=== PATIENT | female | born 1960 | race Caucasian/White ===

== ENCOUNTER 2023-01-02 08:13 | Inpatient (IN) ==
[2023-01-02] MEDS ORDERED: OPTIRAY 320 500ml IV ONE (08:28)
--- NOTE | 2023-01-02 08:28 | Emergency Department Note ---
Impression & Plan Acute left-sided weakness, Elevated troponin, Intermittent abdominal pain ED Provider Note ED Provider Note NAME: JOSHUA RÍOS AGE:62 SEX: Female : 1960 ARRIVES VIA: EMS INFORMANT: Patient ED PROVIDER(s): Laura Raza DO CHIEF COMPLAINT: Left-sided weakness HPI: This is a 62-year-old female presents to emergency department via EMS as a stroke alert following a prehospital conversation between myself and the tap dancer. Patient reported abrupt onset of headache and left-sided weakness at 6:15 AM when she was waking up and getting dressed. She reported to EMS she had been sitting on the bed when she suddenly developed a sharp pain in her head, and then felt weakness on her left side and slid to the floor. Upon EMS arrival she had no facial droop no difficulty speaking. While in route her left-sided weakness which was appreciable to them initially did seem to improve although not completely resolved. Patient also reported numbness in her left hand. Patient is right-hand dominant. Patient does not use any antiplatelet or anticoagulation therapy. No history of prior stroke. No history of complex migraines. No other recent trauma or recent illness. Prehospital BSG 172. PAST MEDICAL HISTORY:See Below PAST SURGICAL HISTORY:See Below FAMILY HISTORY:See Below SOCIAL HISTORY:See Below HOME MEDICATIONS:See Below ALLERGIES:See Below VITALS:See Below PHYSICAL EXAMINATION: GENERAL: alert, anxious appearing, well nourished, no distress, non-toxic EYE EXAM: normal conjunctiva, PERRL and EOM's grossly intact OROPHARYNX: no exudate, no erythema, lips, buccal mucosa, and tongue normal and mucous membranes are moist NECK: supple, no nuchal rigidity, no adenopathy, non-tender LUNGS: Clear to auscultation. Normal chest wall mechanics, no w/r/r HEART: no murmurs, S1 normal and S2 normal ABDOMEN: abdomen soft, non-tender, normo-active bowel sounds, no masses, no r ebound or guarding. BACK: Back is symmetrical on inspection and there is no deformity, no midline t enderness, no CVA tenderness. SKIN: no rashes, petechiae, orbruising UPPER EXTREMITIES: upper extremities are grossly normal. FROM, nml pulses b/l. LOWER EXTREMITIES: No pitting edema. FROM, nml pulses b/l. NEURO EXAM: Normal sensorium, cranial nerves II-XII grossly intact, normal speech, no facial droop,no weakness of right upper or right lower extremity, mild weakness to left upper and left lower extremity, mild left upper extremity ataxia. Patient reports subjective paresthesias in the left hand. Gross sensation intact. Vital Signs: reviewed and remarkable Differential Diagnosis: Differential Diagnosis includes but is not limited to ischemic Stroke, hemorrhagic stroke, bells palsy, mass, neoplasm, migraine headache, seizure, subarachnoid hemorrhage, TIA, and transient global amnesia. MEDICAL DECISION MAKING: THis is a 62 yo female who presents as a stroke alert by EMS due to abrupt onset left sided weakness. Patient went urgently for CT/CTA and was then brought to . Labs drawn and sent, IV established, EKG and CXR performed and interpreted at bedside, and patient placed on telemetry. [facility] neurology was contacted by myself and evaluated the patient additionally. Neurology felt patient was a candidate for TNK however patient declined. During this discussion she also then complained of several other ongoing complaints. Neuro recommended additional stroke evaluation as well as evaluation of other symptoms now reported. US added additionally. Case discussed with hospitalist for additional evaluation. EKG rand CXR reassuring and patient had no active CP. Unclear etiology of elevated troponin. Patient's left sided weakness was improving although not entirely resolved at time of discussion with hospitalist team. Consultation(s): 0823: [facility]: Discussed with Dr. Wise, after additional conversation feels last known well 0550. Discussed offering TNK to the patient. We will order/mix TNK and she will discuss with the patient. 0920: Discussed with Dr. Wise again, patient declined TNK. She states she has had abnormal vaginal bleeding since having her last COVID-vaccine. Patient also complains of 1 week of abdominal pain and admits to intermittent chest pain. Dr. Wise recommends additional evaluation of these other new symptoms that have now been reported as well as additional admission for stroke evaluation including MRI of the brain and echo. ER Treatment Provided: See below Diagnostics Interpreted By Me: -ECG: normal sinus at 67, nml axis, nml intervals, no acute ST/T wave changes -Cardiac Monitoring: An order was placed for continuous cardiac monitoring. The monitor shows a rate of 70 with normal sinus rhythm. -Laboratory studies: As stated above and show below. -Imaging studies: X-ray Chest: A single view study of the chest was reviewed and was negative for cardiomegaly, focal infiltrate, effusion, pulmonary edema, or wide mediastinum. Triage Nursing Note Reviewed Prior/Outside Records Reviewed -prior PCP note from [facility] reviewed Procedures: [] Critical Care: Critical care of 51 min performed to assess and manage high likelihood of life- threatening CVA, involving labs and imaging performed with assessment to evaluate left-sided weakness diagnosis with frequent reassessment. This time includes bedside time, treatment discussions with patient/family/consultants, documentation time and excludes procedure time. Past Med/Surg History Medical History Anxiety HLD (hyperlipidemia) Hx of mammogram Obesity, morbid, BMI 40.0-49.9 Surgical History Hx of colonoscopy Family History Father , age 64 prostate cancer Prostate cancer Grandmother (Paternal) Cancer Breast cancer Social History Smoking Status: Never smoker Second Hand Exposure: No; Do You Dip or Chew Tobacco: No; Hx Alcohol Use: Yes Alcohol Intake Frequency: Monthly or Less Hx Substance Use: No Communication Ability: Effective Mortgage Protection Specialist Required: No Beliefs That Will Affect Care: None Current Living Situation: Spouse and Family current occupational status: employed 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 Feels Safe at Home: Yes Assistive Devices: Cane Allergies Allergies Allergy/AdvReac Type Severity Reaction Status Date / Time No Known Allergies Allergy Unverified 01/02/23 15:45 Home Meds Home Medications Medication Instructions Recorded Confirmed clonazepam 0.5 mg tablet 0.5 mg PO BID PRN Anxiety 01/02/23 01/02/23 nitroglycerin 0.3 mg sublingual 0.3 mg sublingual UD 01/02/23 01/02/23 tablet Previous Rx's Medication Instructions Recorded aspirin 81 mg tablet,delayed 81 mg PO QAM 30 days #30 tabs 01/08/23 release atorvastatin 40 mg tablet 40 mg PO QAM 30 days #30 tabs 01/08/23 heparin, porcine (PF) 5,000 5,000 unit (0.5 mL) subcut Q8 14 01/08/23 unit/0.5 mL injection syringe days #21 mL losartan 50 mg tablet 50 mg PO BID 30 days #60 tabs 01/08/23 metoprolol succinate 25 mg 25 mg PO QAM 30 days #30 tabs 01/08/23 tablet,extended release 24 hr Results & Data (ED) Vital Signs Vital Signs - 24 hr 01/02/23 08:30 01/02/23 08:37 01/02/23 08:34 Temperature 36.6 C Temperature Source Oral Pulse Rate 67 64 65 Pulse Rate from SpO2 Sensor 66 Pulse Rhythm Regular Pulse Strength Normal Respiratory Rate 24 17 Respiratory Effort / Characteristics Spontaneous Respiratory Depth Normal Respiratory Pattern Tachypnea Blood Pressure 147/70 H Blood Pressure Mean 95 Blood Pressure Position Lying Pulse Oximetry 100 100 Oxygen Delivery Method Room Air Sepsis Recent Fever Within 48 Hours No Sepsis New/Unexplained Change in Mental Status N/A Sepsis Action Taken by Nursing No Action Required 01/02/23 08:49 01/02/23 08:51 01/02/23 08:51 Temperature Temperature Source Pulse Rate 71 72 Pulse Rate from SpO2 Sensor 69 71 Pulse Rhythm Pulse Strength Respiratory Rate 21 13 Respiratory Effort / Characteristics Respiratory Depth Respiratory Pattern Blood Pressure 142/90 H Blood Pressure Mean 107 Blood Pressure Position Pulse Oximetry 99 96 Oxygen Delivery Method Sepsis Recent Fever Within 48 Hours Sepsis New/Unexplained Change in Mental Status Sepsis Action Taken by Nursing 01/02/23 09:00 01/02/23 09:15 01/02/23 09:15 Temperature Temperature Source Pulse Rate 71 73 Pulse Rate from SpO2 Sensor 70 72 Pulse Rhythm Pulse Strength Respiratory Rate 19 13 Respiratory Effort / Characteristics Respiratory Depth Respiratory Pattern Blood Pressure 137/82 Blood Pressure Mean 100 Blood Pressure Position Pulse Oximetry 99 96 Oxygen Delivery Method Sepsis Recent Fever Within 48 Hours Sepsis New/Unexplained Change in Mental Status Sepsis Action Taken by Nursing 01/02/23 10:11 01/02/23 12:34 Temperature Temperature Source Pulse Rate 71 63 Pulse Rate from SpO2 Sensor 72 Pulse Rhythm Pulse Strength Respiratory Rate 20 Respiratory Effort / Characteristics Respiratory Depth Respiratory Pattern Blood Pressure 107/77 Blood Pressure Mean 87 Blood Pressure Position Pulse Oximetry 93 Oxygen Delivery Method Room Air Sepsis Recent Fever Within 48 Hours Sepsis New/Unexplained Change in Mental Status Sepsis Action Taken by Nursing Laboratory Data 01/02/23 08:32 01/02/23 08:32 Lab Results 01/02/23 01/02/23 01/02/23 Range/Units 08:31 08:32 08:32 WBC 9.89 (4.8-10.8) K/ul RBC 4.74 (4.20-5.40) M/uL Hgb 12.6 (12.0-16.0) g/dl POC Hgb (12.0-16.0) g/dl Hct 38.6 (37.0-47.0) % POC Hct (37-47) % MCV 81.4 (80.0-100.0) fL MCH 26.6 (25.0-34.0) pg MCHC 32.6 (32.0-36.0) g/dL RDW Std Deviation 39.8 (36.4-46.3) fL RDW Coeff of Kristin 13.3 (11.5-14.5) % Plt Count 256 (130-400) K/uL MPV 9.3 L (9.4-12.4) fL Immature Gran % (Auto) 0.3 % Neut % (Auto) 82.3 % Lymph % (Auto) 9.2 % Cache % (Auto) 5.8 % Eos % (Auto) 1.8 % Baso % (Auto) 0.6 % Neut # (Auto) 8.14 H (1.40-6.50) K/uL Lymph # (Auto) 0.91 L (1.2-3.4) K/uL Cache # (Auto) 0.57 (0.11-0.59) K/uL Eos # (Auto) 0.18 (0-0.50) K/uL Baso # (Auto) 0.06 (0-0.2) K/uL Immature Gran # (Auto) 0.03 (0.01-0.20) K/uL PT 11.5 (9.0-12.0) Seconds INR 1.1 (0.9-1.1) APTT 26.1 (21.0-31.0) Seconds PTT Ratio 0.9 POC Sodium (135-144) mmol/L Sodium (136-145) mmol/L POC Potassium (3.3-5.0) mmol/L Potassium (3.5-5.1) mmol/L POC Chloride (101-112) mmol/L Chloride (98-107) mmol/L Carbon Dioxide (21-32) mmol/L POC Total CO2 (24-31) mmol/L Anion Gap (3-11) POC Anion Gap (16-25) mmol/L POC BUN (7-18) mg/dl BUN (6-23) mg/dl Creatinine (0.6-1.2) mg/dl POC Creatinine (0.6-1.3) mg/dl Est Cr Clr Drug Dosing ml/min Est GFR ( Amer) ml/min Est GFR (Non-Af Amer) ml/min BUN/Creatinine Ratio (10-20) Glucose (70-99(Fasting)) mg/dl POC Glucose 151 H (70-99) mg/dl POC Glucose (other) (70-99) mg/dl Calcium (8.6-10.3) mg/dl POC Ioniz Calcium Alex (1.12-1.32) mmol/l Magnesium (1.7-2.4) mg/dl Total Bilirubin (0.2-1.0) mg/dl AST (13-39) U/L ALT (7-52) U/L Alkaline Phosphatase (34-104) U/L Troponin I High Sens (0-14) pg/ml Total Protein (6.0-8.3) gm/dl Albumin (3.4-5.0) gm/dl Globulin (2.5-4.0) gm/dl Albumin/Globulin Ratio (0.9-2) SARS-CoV-2 (PCR) (Negative) Influenza Type A (PCR) (Neg) Influenza Type B (PCR) (Neg) RSV (RT-PCR) (Neg) 01/02/23 01/02/23 01/02/23 Range/Units 08:32 08:37 10:04 WBC (4.8-10.8) K/ul RBC (4.20-5.40) M/uL Hgb (12.0-16.0) g/dl POC Hgb 12.6 (12.0-16.0) g/dl Hct (37.0-47.0) % POC Hct 37 (37-47) % MCV (80.0-100.0) fL MCH (25.0-34.0) pg MCHC (32.0-36.0) g/dL RDW Std Deviation (36.4-46.3) fL RDW Coeff of Kristin (11.5-14.5) % Plt Count (130-400) K/uL MPV (9.4-12.4) fL Immature Gran % (Auto) % Neut % (Auto) % Lymph % (Auto) % Cache % (Auto) % Eos % (Auto) % Baso % (Auto) % Neut # (Auto) (1.40-6.50) K/uL Lymph # (Auto) (1.2-3.4) K/uL Cache # (Auto) (0.11-0.59) K/uL Eos # (Auto) (0-0.50) K/uL Baso # (Auto) (0-0.2) K/uL Immature Gran # (Auto) (0.01-0.20) K/uL PT (9.0-12.0) Seconds INR (0.9-1.1) APTT (21.0-31.0) Seconds PTT Ratio POC Sodium 137 (135-144) mmol/L Sodium 135 L (136-145) mmol/L POC Potassium 3.9 (3.3-5.0) mmol/L Potassium 3.9 (3.5-5.1) mmol/L POC Chloride 102 (101-112) mmol/L Chloride 102 (98-107) mmol/L Carbon Dioxide 24 (21-32) mmol/L POC Total CO2 22 L (24-31) mmol/L Anion Gap 9 (3-11) POC Anion Gap 18.0 (16-25) mmol/L POC BUN 11 (7-18) mg/dl BUN 12 (6-23) mg/dl Creatinine 0.73 (0.6-1.2) mg/dl POC Creatinine 0.7 (0.6-1.3) mg/dl Est Cr Clr Drug Dosing 110.1 ml/min Est GFR ( Amer) 103.8 ml/min Est GFR (Non-Af Amer) 89.5 ml/min BUN/Creatinine Ratio 16.4 (10-20) Glucose 163 H (70-99(Fasting)) mg/dl POC Glucose (70-99) mg/dl POC Glucose (other) 168 H (70-99) mg/dl Calcium 9.4 (8.6-10.3) mg/dl POC Ioniz Calcium Alex 1.13 (1.12-1.32) mmol/l Magnesium 2.0 (1.7-2.4) mg/dl Total Bilirubin 0.5 (0.2-1.0) mg/dl AST 15 (13-39) U/L ALT 13 (7-52) U/L Alkaline Phosphatase 83 (34-104) U/L Troponin I High Sens 255.6 H* (0-14) pg/ml Total Protein 7.0 (6.0-8.3) gm/dl Albumin 3.9 (3.4-5.0) gm/dl Globulin 3.1 (2.5-4.0) gm/dl Albumin/Globulin Ratio 1.3 (0.9-2) SARS-CoV-2 (PCR) NEGATIVE (Negative) Influenza Type A (PCR) Negative (Neg) Influenza Type B (PCR) Negative (Neg) RSV (RT-PCR) Negative (Neg) Administered Medications Discontinued Medications Acetaminophen (Acetaminophen 325 Mg Tab) 650 mg PO Q4H PRN PRN Reason: Pain or Fever Stop: 02/01/23 20:10 Last Admin: 01/08/23 04:11 Dose: 650 mg Documented By: Admin: 01/07/23 20:43 Dose: 650 mg Documented By: Admin: 01/06/23 20:46 Dose: 650 mg Documented By: Admin: 01/06/23 07:39 Dose: 650 mg Documented By: Admin: 01/04/23 00:27 Dose: 650 mg Documented By: Admin: 01/03/23 21:00 Dose: 650 mg Documented By: Admin: 01/03/23 15:10 Dose: 650 mg Documented By: Admin: 01/03/23 08:22 Dose: 650 mg Documented By: Admin: 01/03/23 00:35 Dose: 650 mg Documented By: Admin: 01/02/23 20:39 Dose: 650 mg Documented By: EKF Al Hydrox/Mg Hydrox/Simethicone (Aluminum/Magnesium/Simeth (Maalox Max) 30 Ml Udc) 30 ml PO Q6H PRN PRN Reason: Indigestion Stop: 02/01/23 20:23 Last Admin: 01/07/23 02:28 Dose: 30 ml Documented By: Admin: 01/06/23 17:06 Dose: 30 ml Documented By: Admin: 01/02/23 20:39 Dose: 30 ml Documented By: EKF Aspirin (Aspirin 325 Mg Ectab) 325 mg PO NOW STA Stop: 01/02/23 09:42 Last Admin: 01/02/23 10:04 Dose: 325 mg Documented By: RODOLFOT Aspirin (Aspirin 81 Mg Ectab) [facility] Stop: 02/02/23 08:59 Last Admin: 01/08/23 09:33 Dose: 81 mg Documented By: Admin: 01/07/23 08:34 Dose: 81 mg Documented By: Admin: 01/06/23 07:39 Dose: 81 mg Documented By: Admin: 01/05/23 10:04 Dose: 81 mg Documented By: Admin: 01/04/23 14:17 Dose: 81 mg Documented By: Admin: 01/03/23 09:28 Dose: 81 mg Documented By: EVGENY Atorvastatin Calcium (Atorvastatin 40 Mg Tab) 80 mg PO [facility] Stop: 02/01/23 17:00 Last Admin: 01/06/23 07:39 Dose: 80 mg Documented By: Admin: 01/05/23 10:07 Dose: 80 mg Documented By: Admin: 01/04/23 14:16 Dose: 80 mg Documented By: Admin: 01/03/23 09:28 Dose: 80 mg Documented By: Admin: 01/02/23 19:46 Dose: 80 mg Documented By: EKF Atorvastatin Calcium (Atorvastatin 40 Mg Tab) [facility] Stop: 02/06/23 08:59 Last Admin: 01/08/23 09:33 Dose: 40 mg Documented By: Admin: 01/07/23 08:34 Dose: 40 mg Documented By: MARTHA Benzocaine/Butamben/Tetracaine HCl (Benzocaine/Tetracain/Butam 50 Appln/5 Gm Can) Confirm Administered Dose 50 appln EXT .STK-MED ONE Stop: 01/08/23 07:19 Last Admin: 01/08/23 08:54 Dose: Not Given Documented By: SHELBI Clonazepam (Clonazepam 0.5 Mg Tab) 0.5 mg PO BID PRN PRN Reason: Anxiety Stop: 02/01/23 17:00 Last Admin: 01/07/23 20:43 Dose: 0.5 mg Documented By: Admin: 01/04/23 09:23 Dose: 0.5 mg Documented By: Gadobutrol (Gadobutrol 65ml Vial) 12.1 ml IV ONCE ONE Stop: 01/04/23 12:44 Last Admin: 01/04/23 12:09 Dose: 12.1 ml Documented By: MARCY Heparin Sodium (Porcine) (Heparin Sod 5,000 Unit/0.5 Ml Vial) 5,000 units SQ Q8 RAMON Stop: 02/02/23 21:59 Last Admin: 01/08/23 05:24 Dose: Not Given Documented By: Admin: 01/07/23 21:52 Dose: 5,000 units Documented By: Admin: 01/07/23 14:01 Dose: 5,000 units Documented By: Admin: 01/07/23 06:32 Dose: 5,000 units Documented By: Admin: 01/06/23 20:45 Dose: 5,000 units Documented By: Admin: 01/06/23 13:59 Dose: 5,000 units Documented By: Admin: 01/06/23 06:00 Dose: Not Given Documented By: Admin: 01/05/23 21:38 Dose: 5,000 units Documented By: Admin: 01/05/23 14:30 Dose: 5,000 units Documented By: Admin: 01/05/23 06:00 Dose: 5,000 units Documented By: Admin: 01/04/23 21:12 Dose: 5,000 units Documented By: Admin: 01/04/23 14:18 Dose: 5,000 units Documented By: Admin: 01/04/23 06:35 Dose: 5,000 units Documented By: Admin: 01/03/23 21:12 Dose: 5,000 units Documented By: MELLISA Tenecteplase 25 mg/ Syringe 5 mls @ 60 mls/min IV NOW ONE; Protocol Stop: 01/02/23 09:09 Last Admin: 01/02/23 09:30 Dose: Not Given Documented By: AP Sodium Chloride (Nss 1000ml) 1,000 mls @ 250 mls/hr IV .Q4H RAMON Stop: 02/01/23 09:29 Last Infusion: 01/03/23 07:29 Dose: 0 mls/hr Documented By: Admin: 01/03/23 06:23 Dose: 250 mls/hr Documented By: Infusion: 01/03/23 06:23 Dose: 250 mls/hr Documented By: Admin: 01/03/23 02:45 Dose: 250 mls/hr Documented By: Infusion: 01/03/23 02:43 Dose: 250 mls/hr Documented By: Admin: 01/02/23 22:43 Dose: 250 mls/hr Documented By: Infusion: 01/02/23 22:03 Dose: 250 mls/hr Documented By: Admin: 01/02/23 18:03 Dose: 250 mls/hr Documented By: Infusion: 01/02/23 18:03 Dose: 250 mls/hr Documented By: Admin: 01/02/23 14:50 Dose: 250 mls/hr Documented By: DLClementina Infusion: 01/02/23 14:50 Dose: 0 mls/hr Documented By: DLClementina Admin: 01/02/23 09:59 Dose: 250 mls/hr Documented By: AP Acetaminophen (Ofirmev) 1,000 mg in 100 mls @ 400 mls/hr IV NOW STA Stop: 01/02/23 09:30 Last Infusion: 01/02/23 10:14 Dose: 0 mls/hr Documented By: Admin: 01/02/23 09:59 Dose: 400 mls/hr Documented By: AP Acetaminophen (Ofirmev) 1,000 mg in 100 mls @ 400 mls/hr IV NOW STA Stop: 01/04/23 13:55 Last Infusion: 01/04/23 14:13 Dose: 0 mls/hr Documented By: Admin: 01/04/23 13:53 Dose: 400 mls/hr Documented By: Ioversol (Optiray 320 500ml) 108 ml IV ONCE ONE Stop: 01/02/23 08:29 Last Admin: 01/02/23 08:28 Dose: 108 ml Documented By: JOSIANE Lorazepam (Lorazepam 2 Mg/1 Ml Vial) 1 mg IV NOW STA Stop: 01/02/23 15:30 Last Admin: 01/02/23 15:39 Dose: 1 mg Documented By: CHIOMA Losartan Potassium (Losartan Potassium 50 Mg Tab) 50 mg PO BID [facility] Stop: 02/03/23 13:09 Last Admin: 01/08/23 09:33 Dose: 50 mg Documented By: Admin: 01/07/23 20:40 Dose: 50 mg Documented By: Admin: 01/07/23 08:34 Dose: 50 mg Documented By: Admin: 01/06/23 20:45 Dose: 50 mg Documented By: Admin: 01/06/23 07:39 Dose: 50 mg Documented By: Admin: 01/05/23 21:38 Dose: 50 mg Documented By: Admin: 01/05/23 10:04 Dose: 50 mg Documented By: Admin: 01/04/23 21:12 Dose: 50 mg Documented By: Admin: 01/04/23 14:17 Dose: 50 mg Documented By: Metoprolol Succinate (Metoprolol Succ 25mg Ext Rel Tab) 12.5 mg PO DAILY@1700 [facility] Stop: 02/05/23 16:59 Last Admin: 01/07/23 17:43 Dose: 12.5 mg Documented By: Admin: 01/06/23 17:38 Dose: 12.5 mg Documented By: MARTHA Metoprolol Succinate (Metoprolol Succ 25mg Ext Rel Tab) 25 mg PO QAM [facility] Stop: 02/07/23 08:59 Last Admin: 01/08/23 09:33 Dose: 25 mg Documented By: SHELBI Miscellaneous (Stat Iv) 1 each N/A NOW [facility] Stop: 01/02/23 08:59 Last Admin: 01/02/23 10:25 Dose: Not Given Documented By: CHRISTI Ondansetron HCl (Ondansetron Inj 2 Mg/Ml 2 Ml Vial) 4 mg IV Q6H PRN PRN Reason: Nausea And Vomiting Stop: 02/03/23 01:38 Last Admin: 01/04/23 13:28 Dose: 4 mg Documented By: Ondansetron HCl (Ondansetron Inj 2 Mg/Ml 2 Ml Vial) Confirm Administered Dose 4 mg .ROUTE .STK-MED ONE Stop: 01/04/23 01:44 Last Admin: 01/04/23 01:45 Dose: 4 mg Documented By: LMP Oxycodone HCl (Oxycodone Hcl Ir 5 Mg Tab (Immediate Release)) 5 mg PO NOW STA Stop: 01/04/23 01:57 Last Admin: 01/04/23 02:40 Dose: Not Given Documented By: LMP Propofol (Propofol Iv Emulsion 10 Mg/Ml 20 Ml Vial) Confirm Administered Dose 20 0 mg IV .STK-MED ONE Stop: 01/08/23 07:40 Last Admin: 01/08/23 08:54 Dose: Not Given Documented By: KEG Propofol (Propofol Iv Emulsion 10 Mg/Ml 20 Ml Vial) Confirm Administered Dose 200 mg IV .STK-MED ONE Stop: 01/08/23 07:40 Last Admin: 01/08/23 08:54 Dose: Not Given Documented By: KEG Sodium Chloride (Sodium Chloride 0.9% 10ml Flush) 20 ml IV NOW STA Stop: 01/02/23 08:59 Last Admin: 01/02/23 09:31 Dose: Not Given Documented By: AP Imaging Data Radiologist's Impression: Chest X-Ray 01/02/23 08:17 XR chest 1V portable HISTORY: 62 years-old Female neuro deficit, acute stroke suspected acute strokelike symptoms COMPARISON: None TECHNIQUE: AP view of the chest FINDINGS: Cardiomediastinal and hilar silhouettes are within normal limits. Mild right hemidiaphragmatic elevation. No pneumothorax, pleural effusion, airspace consolidation or pulmonary edema. Degenerative changes of the shoulders and spine. Bilateral shoulder rotator cuff calcific tendinosis. IMPRESSION: No acute process. ACT 112: Negative or not required by law. The above report was generated using voice recognition software. It may contain grammatical, syntax or spelling errors. Electronically signed by: Cuco Morrell M.D. 01/02/2023 10:[address] 01/02/23 08:17 CT head/brain wo con, CT angio neck with con, CT angio head w con CLINICAL HISTORY: 62 years-old Female with neuro deficit, acute stroke suspected. Acute strokelike symptoms TECHNIQUE: Multiple axial CT images of the head were obtained without contrast. CTA head and neck also obtained following the intravenous administration of 108 mL Optiray 320. 3-D coronal and sagittal maps were obtained and submitted for review. All measurements were obtained according to NASCET criteria. A dose lowering technique was utilized adhering to the principles of ALARA. CT DOSE: 2073.47 mGy.cm COMPARISON: None. FINDINGS: CT HEAD: No acute intracranial hemorrhage, midline shift, intracranial mass, hydrocephalus, territorial ischemia or abnormal extra-axial collection. The calvarium is intact. Mild mucosal thickening of the paranasal sinuses. Mastoid air cells are clear. CTA: Dilated pulmonary artery may represent pulmonary arterial hypertension. Atherosclerosis of the thoracic aorta. Patency of the innominate and image subclavian arteries. Common and internal carotid arteries are patent. Mild atherosclerosis of the right carotid bulb. Anterior and middle cerebral arteries are patent. Vertebral arteries are codominant and patent. The basilar and posterior cerebral arteries are patent. Cerebral venous sinuses are patent. No aneurysm, dissection, high-grade stenosis or arterial occlusion identified. No abnormal intracranial enhancement. No pneumothorax. Groundglass densities in the lungs suggestive of atelectasis. Unremarkable soft tissues. Degenerative changes of the cervical spine. IMPRESSION: 1. No acute intracranial abnormality. 2. Unremarkable CTA of the head and neck. ACT 112: Negative or not required by law. The above report was generated using voice recognition software. It may contain grammatical, syntax or spelling errors. Electronically signed by: Cuco Morrell M.D. 01/02/2023 8:53 AM Head CTA 01/02/23 08:17 CT head/brain wo con, CT angio neck with con, CT angio head w con CLINICAL HISTORY: 62 years-old Female with neuro deficit, acute stroke suspected. Acute strokelike symptoms TECHNIQUE: Multiple axial CT images of the head were obtained without contrast. CTA head and neck also obtained following the intravenous administration of 108 mL Optiray 320. 3-D coronal and sagittal maps were obtained and submitted for review. All measurements were obtained according to NASCET criteria. A dose lowering technique was utilized adhering to the principles of ALARA. CT DOSE: 2073.47 mGy.cm COMPARISON: None. FINDINGS: CT HEAD: No acute intracranial hemorrhage, midline shift, intracranial mass, hydr ocephalus, territorial ischemia or abnormal extra-axial collection. The calvarium is intact. Mild mucosal thickening of the paranasal sinuses. Mastoid air cells are clear. CTA: Dilated pulmonary artery may represent pulmonary arterial hypertension. Atherosclerosis of the thoracic aorta. Patency of the innominate and image subclavian arteries. Common and internal carotid arteries are patent. Mild atherosclerosis of the right carotid bulb. Anterior and middle cerebral arteries are patent. Vertebral arteries are codominant and patent. The basilar and posterior cerebral arteries are patent. Cerebral venous sinuses are patent. No aneurysm, dissection, high-grade stenosis or arterial occlusion identified. No abnormal intracranial enhancement. No pneumothorax. Groundglass densities in the lungs suggestive of atelectasis. Unremarkable soft tissues. Degenerative changes of the cervical spine. IMPRESSION: 1. No acute intracranial abnormality. 2. Unremarkable CTA of the head and neck. ACT 112: Negative or not required by law. The above report was generated using voice recognition software. It may contain grammatical, syntax or spelling errors. Electronically signed by: Cuco Morrell M.D. 01/02/2023 8:53 AM Neck CTA 01/02/23 08:17 CT head/brain wo con, CT angio neck with con, CT angio head w con CLINICAL HISTORY: 62 years-old Female with neuro deficit, acute stroke suspected. Acute strokelike symptoms TECHNIQUE: Multiple axial CT images of the head were obtained without contrast. CTA head and neck also obtained following the intravenous administration of 108 mL Optiray 320. 3-D coronal and sagittal maps were obtained and submitted for review. All measurements were obtained according to NASCET criteria. A dose lowering technique was utilized adhering to the principles of ALARA. CT DOSE: 2073.47 mGy.cm COMPARISON: None. FINDINGS: CT HEAD: No acute intracranial hemorrhage, midline shift, intracranial mass, hydrocephalus, territorial ischemia or abnormal extra-axial collection. The calvarium is intact. Mild mucosal thickening of the paranasal sinuses. Mastoid air cells are clear. CTA: Dilated pulmonary artery may represent pulmonary arterial hypertension. Atherosclerosis of the thoracic aorta. Patency of the innominate and image subclavian arteries. Common and internal carotid arteries are patent. Mild at herosclerosis of the right carotid bulb. Anterior and middle cerebral arteries are patent. Vertebral arteries are codominant and patent. The basilar and posterior cerebral arteries are patent. Cerebral venous sinuses are patent. No aneurysm, dissection, high-grade stenosis or arterial occlusion identified. No abnormal intracranial enhancement. No pneumothorax. Groundglass densities in the lungs suggestive of atelectasis. Unremarkable soft tissues. Degenerative changes of the cervical spine. IMPRESSION: 1. No acute intracranial abnormality. 2. Unremarkable CTA of the head and neck. ACT 112: Negative or not required by law. The above report was generated using voice recognition software. It may contain grammatical, syntax or spelling errors. Electronically signed by: Cuco Morrell M.D. 01/02/2023 8:53 AM Gallbladder Ultrasound 01/02/23 09:34 ULTRASOUND RIGHT UPPER QUADRANT ABDOMEN CLINICAL HISTORY: Postprandial right upper quadrant abdominal pain. COMPARISON STUDY: No priors. TECHNIQUE: Real-time, grayscale, and color flow sonography of the right upper quadrant of the abdomen was performed. Images are reviewed in the transverse and longitudinal planes. FINDINGS: Liver: The liver is mildly enlarged and demonstrates heterogeneously increased echotexture indicating steatosis. There is no intrahepatic biliary ductal dilatation. The main portal vein is patent. Gallbladder: The gallbladder is mildly distended and contains large shadowing gallstones as well as biliary sludge. There is no gallbladder wall thickening or pericholecystic fluid. A sonographic Nunez's sign is reportedly absent. The common bile duct measures up to 0.5 cm in diameter. Pancreas: There is an approximately 5 cm indeterminate hypoechoic density adjacent to pancreatic head. Right kidney: Survey images of the right kidney demonstrate normal size and echotexture. There is no hydronephrosis. Ascites: None. IMPRESSION: 1. There is an approximately 5 cm indeterminant hypoechoic density adjacent to the pancreatic head. Correlation with a contrast-enhanced abdominal CT scan is recommended for further assessment. 2. Cholelithiasis and biliary sludge without sonographic evidence of acute cholecystitis. 3. Hepatomegaly and hepatic steatosis. ACT 112: Negative or not required by law. Electronically signed by: Celestine Gómez M.D. 01/02/2023 12:03 PM Pelvis Ultrasound 01/02/23 11:02 US pelvic complete HISTORY: 62 years-old Female vaginal bleeding postmenopausal acute postmen opausal vaginal bleeding COMPARISON: None TECHNIQUE: Multiple real-time sonographic images of the deep pelvic structures were obtained transabdominally assessing grayscale appearance, color and spectral flow. FINDINGS: Anteflexed uterus measures 8.9 x 3.7 x 4.8 cm. No myometrial mass lesion. Homogeneous echogenic thickening of the endometrium, 1.6 cm. Ovaries are not diagnostically visualized. Limited study secondary to patient body habitus. IMPRESSION: Pathologic thickening of the postmenopausal endometrium. Correlation with tissue sampling recommended. ACT 112: Negative or not required by law. The above report was generated using voice recognition software. It may contain grammatical, syntax or spelling errors. Electronically signed by: Cuco Morrell M.D. 01/02/2023 12:19 PM Abdomen/Pelvis CT 01/02/23 12:[address] WITHOUT CONTRAST CT DOSE: 1493.32 mGy.cm HISTORY: Acute right upper quadrant abdominal pain Eval Pancreatic mass, vaginal bleeding TECHNIQUE: Multiaxial CT images of the abdomen and pelvis were performed without contrast. A dose lowering technique was utilized adhering to the principles of ALARA. COMPARISON STUDY: Abdominal ultrasound of same day FINDINGS: No acute process of the imaged lower chest. Limited study without the use of contrast. Ptosis or pneumoperitoneum. Unremarkable unenhanced spleen, gallbladder and adrenal glands. The patient's cholelithiasis is not identified by ultrasound. Hepatomegaly with hepatic steatosis. No biliary ductal dilation. Mild pancreatic ductal dilation measures up to 6 mm. Ill-defined mass of the pancreatic head is confirmed measuring 4.3 x 3.6 cm. Mild peripancreatic str anding. Subcentimeter peripancreatic and paradise hepatic lymph nodes. The anterior margin of this lesion abuts the adjacent superior mesenteric vein and also abuts the adjacent duodenum which penetrates mild wall thickening. Contrast noted within the renal collecting systems and urinary bladder. No hydronephrosis. Heterogeneous uterus. Atherosclerosis of the aorta. Tiny hiatal hernia. Moderate rectal fecal retention. Colonic diverticulosis. No CT evidence of acute appendicitis. Small fat filled umbilical hernia. No acute fracture. IMPRESSION: 1. Confirmation of the 4.3 cm ill-defined pancreatic head mass resulting in upstream pancreatic ductal dilation. Evaluation is limited without the use of IV contrast, however the imaging characteristics are suspicious for adenocarcinoma. GI consultation with endoscopy and tissue sampling recommended. 2. The pancreatic mass abuts and possibly infiltrates the adjacent duodenum . No obstruction. 3. No evidence of metastatic disease. 4. Hepatic steatosis. ACT 112: Negative or not required by law. The above report was generated using voice recognition software. It may contain grammatical, syntax or spelling errors. Electronically signed by: Cuco Morrell M.D. 01/02/2023 1:35 PM Discharge Plan Visit Data Chief Complaint: Stroke Alert ED Provider: Laura Raza Discharge Problem: Acute left-sided weakness, Elevated troponin, Intermittent abdominal pain Patient Disposition: Admitted As Inpatient Discharge Instructions Interventions: ED Discharge Assessment Last Done: 01/02/23 15:46
[2023-01-02 08:43] LABS: Basophils # (auto) 0.06 K/uL (0-0.2); Basophils % (auto) 0.6 %; Eosinophils # (auto) 0.18 K/uL (0-0.50); Eosinophils % (auto) 1.8 %; Hematocrit (blood only) 38.6 % (37.0-47.0); Hemoglobin 12.6 g/dl (12.0-16.0); Immature Granulocytes # (auto) 0.03 K/uL (0.01-0.20); Immature Granulocytes % (auto) 0.3 %; Lymphocytes # (auto) 0.91 K/uL (1.2-3.4); Lymphocytes % (auto) 9.2 %; Mean Corpuscular Hemoglobin 26.6 pg (25.0-34.0); Mean Corpuscular Hgb Conc 32.6 g/dL (32.0-36.0); Mean Corpuscular Volume 81.4 fL (80.0-100.0); Mean Platelet Volume 9.3 fL (9.4-12.4); Monocytes # (auto) 0.57 K/uL (0.11-0.59); Monocytes % (auto) 5.8 %; Neutrophils # (auto) 8.14 K/uL (1.40-6.50); Neutrophils % (auto) 82.3 %; Platelet Count 256 K/uL (130-400); RDW Coefficient of Variation 13.3 % (11.5-14.5); RDW Standard Deviation 39.8 fL (36.4-46.3); Red Blood Count 4.74 M/uL (4.20-5.40); White Blood Count 9.89 K/ul (4.8-10.8)
--- NOTE | 2023-01-02 08:54 | CT Scan Report ---
CT head/brain wo con, CT angio neck with con, CT angio head w con CLINICAL HISTORY: 62 years-old Female with neuro deficit, acute stroke suspected. Acute strokelike s [place] TECHNIQUE: Multiple axial CT images of the head were obtained without contrast. CTA head and neck als o obtained following the intravenous administration of 108 mL Optiray 320. 3-D coronal and sagittal m aps were obtained and submitted for review. All measurements were obtained according to NASCET criter ia. A dose lowering technique was utilized adhering to the principles of ALARA. CT DOSE: 2073.47 mGy.cm COMPARISON: None. FINDINGS: CT HEAD: No acute intracranial hemorrhage, midline shift, intracranial mass, hydrocephalus, territorial ischem ia or abnormal extra-axial collection. The calvarium is intact. Mild mucosal thickening of the paranasal sinuses. Mastoid air cells are violet ar. CTA: Dilated pulmonary artery may represent pulmonary arterial hypertension. Atherosclerosis of the thorac ic aorta. Patency of the innominate and image subclavian arteries. Common and internal carotid arteri es are patent. Mild atherosclerosis of the right carotid bulb. Anterior and middle cerebral arteries are patent. Vertebral arteries are codominant and patent. The basilar and posterior cerebral arteries are patent. Cerebral venous sinuses are patent. No aneurysm, dissection, high-grade stenosis or kathleen rial occlusion identified. No abnormal intracranial enhancement. No pneumothorax. Groundglass densities in the lungs suggestive of atelectasis. Unremarkable soft tiss ues. Degenerative changes of the cervical spine. IMPRESSION: 1. No acute intracranial abnormality. 2. Unremarkable CTA of the head and neck. ACT 112: Negative or not required by law. The above report was generated using voice recognition software. It may contain grammatical, syntax o r spelling errors. Electronically signed by: Cuco Morrell M.D. 01/02/2023 8:53 AM
[2023-01-02 08:58] LABS: INR 1.1 (0.9-1.1); Partial Thromboplastin Ratio 0.9; Partial Thromboplastin Time 26.1 Seconds (21.0-31.0); Prothrombin Time 11.5 Seconds (9.0-12.0)
[2023-01-02] MEDS ORDERED: SODIUM CHLORIDE 0.9% 10ML FLUSH IV STA (08:58)
[2023-01-02] MEDS ORDERED: STAT IV STA (08:58)
[2023-01-02] MEDS ORDERED: No Aspirin within 24hrs of THROMBOLYTIC-Stroke PO SCH (09:00)
[2023-01-02 09:05] LABS: Albumin Globulin Ratio 1.3 (0.9-2); Albumin Level 3.9 gm/dl (3.4-5.0); BUN Creatinine Ratio 16.4 (10-20); Bilirubin,Total 0.5 mg/dl (0.2-1.0); Calcium 9.4 mg/dl (8.6-10.3); Creatinine Clr Calc Pharmacy 110.1 ml/min; Est GFR (African American) 103.8 ml/min; Est GFR (Non-African American) 89.5 ml/min; Globulin 3.1 gm/dl (2.5-4.0); Potassium 3.9 mmol/L (3.5-5.1)
[2023-01-02] MEDS ORDERED: TENECTEPLASE 25 MG in SYRINGE 0 ML IV ONE (09:08)
[2023-01-02 09:13] LABS: Troponin I High Sensitivity 255.6 pg/ml (0-14)
[2023-01-02] MEDS ORDERED: ACETAMINOPHEN 1,000 MG/100 ML VIAL IV STA (09:16)
[2023-01-02] MEDS ORDERED: ASPIRIN 325 MG ECTAB PO STA (09:41)
[2023-01-02] MEDS: SODIUM CHLORIDE 0.9% 1000ML 1,000 ML IV SCH ×4 (09:59→22:43)
--- NOTE | 2023-01-02 10:16 | History & Physical Report ---
Date of Service January 02, 2023 Assessment & Plan (1) Left-sided weakness: Plan: - Admit to PCU for observation - Stroke order set completed- tele neurologist recommended TNK due to NIH score of 3, possibly a 4, however the pt declined. Was treated with full dose baby aspirin. - CT head reviewed and is negative - MRI brain wo contrast ordered - Will allow permissive hypertension with SBP 140-170, pt is not on home blood pressure medication - Neurology consulted - PT/OT consults placed - Atorvastatin 80 mg, baby aspirin daily added to the med regimen (2) Elevated troponin: Plan: - Initial set is elevated at 255.6, pt denies cardiac complaints, will trend Q6H - Obtain echo - Consult cardiology - Check a1c and lipid panel with am labs (3) Vaginal bleeding: Plan: - Notes episode of larg clot passing about 1 year ago - never followed up with rehab office coordinator due to poor compliance, continues to have spotting and intermittent vag inal bleeding and is postmenopausal. - Pelvic U/S ordered to eval (4) Obesity, morbid, BMI 40.0-49.9: Plan: - Lifestyle modification, diet and weight loss need to be encouraged throughout hospital stay - BMI of 44.1 (5) Anxiety: Plan: - significant anxiety during our conversation, may continue clonazepam prn - Affect is almost pseudobulbar syndrome - like -- unsure if this is primarily anxiety at this time due to multiple issues causing increased stress or if this is the patients baseline mood. (6) HLD (hyperlipidemia): Plan: -History of such, does not appear to be on statin therapy at baseline, added atorvastatin 80 mg for plaque stabilization due to strokelike symptoms. DVT PPx: - teds, scds CODE: Full code Dispo: From home, likely to remain in the hospital x 1-2 days A total of 85 minutes were spent with greater than 50% of that time face to face with the patient, personally reviewing all current laboratories, imaging studies, past medication reconciliation, outpatient chart review, and discussion with specialists to collaborate care for the patient with attending. Please see attending documentation for corrections and/or additions. History of Present Illness Chief Complaint: Left sided weakness and Left hand parasthesias Primary Care Provider: Vanesa Solorzano, This is a 62-year-old female with PMHx of morbid obesity with a BMI of 44, HLD, who presents to the hospital with acute onset of left-sided weakness and left- sided hand paresthesias. She felt left arm weakness and numbness after waking up this morn around 9am. Last time known well was earlier in the morning when she was up and using the bathroom, and was up 3 x last night to use the bathroom which was also normal. She noticed difficulty trying to get her left leg into her underware/pants, and during the process of trying to get dressed she fell off the side of the bed. Denies LOC or hitting her head. Pt had left arm left arm numbness at this same time. She reports hx of vertigo and was worse in the ambulance this morning en transit to hospital. No changes in vision, word finding, slurred speech or confusion. Pt reports that her main complaint is abdominal pain and bloating, feels like she ate a big turkey dinner. PT describes it in the epigastric region and intermittently is there for 1 week. Pt was nauseous this morning, but no vomiting, denies diarrhea or constipation and drinks a "detox tea", last BM was yesterday, and reports having a hemorrhoid currently, but denies seeing blood in stool it is only on paper when she wipes sometimes. Pt notes 1 year ago she had passed a very large vaginal clot where she saw her PCP but due to feeling cp/sob, she was not worked up so much gynecologically. Instead underwent nuclear cardiac stress testing and was told this was normal. Pt admits to noncompliance and poor follow up in the past and has not seen rehab office coordinator since and still has intermittent spotting with blood vaginally. Teleneurologist was contacted and recommended that she be treated with TNK however the patient declined this. NIH scoring was 3, possibly 4 per teleneurology. She was treated with a full dose baby aspirin. CT of the head and neck are negative. Patient was found to have an elevated troponin of 255.6 however EKG is without acute ST wave abnormalities or signs of ischemia. She denies any cardiac complaints, no chest pain no shortness of breath. Her mother and are present at bedside. Reports her mother lives with them however she helps with all pocket cutter and actually feels she is more a help to her and her recently than they are to her. She is very anxious throughout this entire meeting, and intermittently becomes tearful, cries, then laughs somewhat inappropriately. Home Medications Medication Instructions Recorded Confirmed Type clonazepam 0.5 mg tablet 0.5 mg PO BID PRN Anxiety 01/02/23 01/02/23 History meloxicam 7.5 mg tablet 7.5 mg PO DAILY PRN Pain 01/02/23 01/02/23 History nitroglycerin 0.3 mg sublingual 0.3 mg sublingual UD 01/02/23 01/02/23 History tablet Past Med/Surg History Medical History (Updated 01/02/23 @ 11:27 by Diya Jay PA-C) Anxiety HLD (hyperlipidemia) Hx of mammogram Obesity, morbid, BMI 40.0-49.9 Surgical History (Updated 01/02/23 @ 10:09 by Diya Jay PA-C) Hx of colonoscopy Family History (Updated 01/02/23 @ 10:09 by Diya Jay PA-C) Father Cancer Grandmother (Paternal) Cancer Breast cancer Social History Smoking Status: Never smoker Feels Safe at Home: Yes Review of Systems Review of Systems: Constitutional: No fever, sweats or chills Eyes: No diplopia, no worsening or blurred vision ENT: normal hearing, no trouble swallowing Respiratory: No cough, sputum, dyspnea at rest or on exertion Cardiovascular: No chest pain, tightness or palpitations Abdomen: No pain, nausea, vomiting, diarrhea or constipation Musculoskeletal: No joint pain, calf pain, swelling Neurologic: + Left leg and arm weakness, left arm numbness, numbness/tingling, or balance problems, no slurring speech, expressing herself, word finding Psychiatric: No anxiety or depression Skin: No rash or itch Physical Exam Physical Exam: General: awake, alert, no apparent distress, + obese with BMI 44.1 Head: Normocephalic, atraumatic ENT: PERRL, EOMI, no pharyngeal exudate, mucous membranes moist Chest: Clear to auscultation, on room air, no adventitious breath sounds, + central chest and below the xiphoid process pain Cardiac: Regular rate and rhythm, grad II/III BLANCA, no JVD, normal peripheral pulses, good capillary refill Abdominal: NABS x 4 quadrants, soft, nondistended, nontender to deep palpation, no rebound or guarding Extremities: Normal inspection, no peripheral edema or erythema, calfs nontender to palpation Psych: anxious mood and mood fluctuates between crying, tearfulness and then laughing. Dependent with mother and is at bedside. Neuro: AAO x 3, strength testing normal throughout except left leg straight leg to ceiling is slightly weaker than the right, left arm is slightly weaker with elbow extension. Left sided leg numbness with light touch. CN II-XII intact. Otherwise no motor deficits, speech is clear, no peripheral sensory deficits Results & Data Results & Data Vital Signs (Past 12 Hours) Vital Signs Temp Pulse Resp BP Pulse Ox O2 Del Method 01/02/23 09:15 73 13 96 01/02/23 09:15 137/82 01/02/23 09:00 71 19 99 01/02/23 08:51 142/90 H 01/02/23 08:51 72 13 96 01/02/23 08:49 71 21 99 01/02/23 08:34 65 17 100 01/02/23 08:37 64 01/02/23 08:30 36.6 C 67 24 147/70 H 100 Room Air Laboratory Results 01/02/23 01/02/23 01/02/23 08:32 08:32 08:32 WBC 9.89 RBC 4.74 Hgb 12.6 Hct 38.6 MCV 81.4 MCH 26.6 MCHC 32.6 RDW Std Deviation 39.8 RDW Coeff of Kristin 13.3 Plt Count 256 MPV 9.3 L Immature Gran % (Auto) 0.3 Neut % (Auto) 82.3 Lymph % (Auto) 9.2 [place] % (Auto) 5.8 Eos % (Auto) 1.8 Baso % (Auto) 0.6 Neut # (Auto) 8.14 H Lymph # (Auto) 0.91 L [place] # (Auto) 0.57 Eos # (Auto) 0.18 Baso # (Auto) 0.06 Immature Gran # (Auto) 0.03 PT 11.5 INR 1.1 APTT 26.1 PTT Ratio 0.9 Sodium 135 L Potassium 3.9 Chloride 102 Carbon Dioxide 24 Anion Gap 9 BUN 12 Creatinine 0.73 Est Cr Clr Drug Dosing 110.1 Est GFR ( Amer) 103.8 Est GFR (Non-Af Amer) 89.5 BUN/Creatinine Ratio 16.4 Glucose 163 H POC Glucose Calcium 9.4 Magnesium 2.0 Total Bilirubin 0.5 AST 15 ALT 13 Alkaline Phosphatase 83 Troponin I High Sens 255.6 H* Total Protein 7.0 Albumin 3.9 Globulin 3.1 Albumin/Globulin Ratio 1.3 01/02/23 08:31 WBC RBC Hgb Hct MCV MCH MCHC RDW Std Deviation RDW Coeff of Kristin Plt Count MPV Immature Gran % (Auto) Neut % (Auto) Lymph % (Auto) [place] % (Auto) Eos % (Auto) Baso % (Auto) Neut # (Auto) Lymph # (Auto) [place] # (Auto) Eos # (Auto) Baso # (Auto) Immature Gran # (Auto) PT INR APTT PTT Ratio Sodium Potassium Chloride Carbon Dioxide Anion Gap BUN Creatinine Est Cr Clr Drug Dosing Est GFR ( Amer) Est GFR (Non-Af Amer) BUN/Creatinine Ratio Glucose POC Glucose 151 H Calcium Magnesium Total Bilirubin AST ALT Alkaline Phosphatase Troponin I High Sens Total Protein Albumin Globulin Albumin/Globulin Ratio Diagnostic Findings Head CT 01/02/23 08:17 CT head/brain wo con, CT angio neck with con, CT angio head w con CLINICAL HISTORY: 62 years-old Female with neuro deficit, acute stroke suspected. Acute strokelike symptoms TECHNIQUE: Multiple axial CT images of the head were obtained without contrast. CTA head and neck also obtained following the intravenous administration of 108 mL Optiray 320. 3-D coronal and sagittal maps were obtained and submitted for review. All measurements were obtained according to NASCET criteria. A dose lowering technique was utilized adhering to the principles of ALARA. CT DOSE: 2073.47 mGy.cm COMPARISON: None. FINDINGS: CT HEAD: No acute intracranial hemorrhage, midline shift, intracranial mass, hydrocephalus, territorial ischemia or abnormal extra-axial collection. The calvarium is intact. Mild mucosal thickening of the paranasal sinuses. Mastoid air cells are clear. CTA: Dilated pulmonary artery may represent pulmonary arterial hypertension. Atherosclerosis of the thoracic aorta. Patency of the innominate and image subclavian arteries. Common and internal carotid arteries are patent. Mild atherosclerosis of the right carotid bulb. Anterior and middle cerebral arteries are patent. Vertebral arteries are codominant and patent. The basilar and posterior cerebral arteries are patent. Cerebral venous sinuses are patent. No aneurysm, dissection, high-grade stenosis or arterial occlusion identified. No abnormal intracranial enhancement. No pneumothorax. Groundglass densities in the lungs suggestive of atelectasis. Unremarkable soft tissues. Degenerative changes of the cervical spine. IMPRESSION: 1. No acute intracranial abnormality. 2. Unremarkable CTA of the head and neck. ACT 112: Negative or not required by law. The above report was generated using voice recognition software. It may contain grammatical, syntax or spelling errors. Electronically signed by: Cuco Morrell M.D. 01/02/2023 8:53 AM Head CTA 01/02/23 08:17 CT head/brain wo con, CT angio neck with con, CT angio head w con CLINICAL HISTORY: 62 years-old Female with neuro deficit, acute stroke suspected. Acute strokelike symptoms TECHNIQUE: Multiple axial CT images of the head were obtained without contrast. CTA head and neck also obtained following the intravenous administration of 108 mL Optiray 320. 3-D coronal and sagittal maps were obtained and submitted for review. All measurements were obtained according to NASCET criteria. A dose lowering technique was utilized adhering to the principles of ALARA. CT DOSE: 2073.47 mGy.cm COMPARISON: None. FINDINGS: CT HEAD: No acute intracranial hemorrhage, midline shift, intracranial mass, hydrocephalus, territorial ischemia or abnormal extra-axial collection. The calvarium is intact. Mild mucosal thickening of the paranasal sinuses. Mastoid air cells are clear. CTA: Dilated pulmonary artery may represent pulmonary arterial hypertension. Atherosclerosis of the thoracic aorta. Patency of the innominate and image subclavian arteries. Common and internal carotid arteries are patent. Mild atherosclerosis of the right carotid bulb. Anterior and middle cerebral arteries are patent. Vertebral arteries are codominant and patent. The basilar and posterior cerebral arteries are patent. Cerebral venous sinuses are patent. No aneurysm, dissection, high-grade stenosis or arterial occlusion identified. No abnormal intracranial enhancement. No pneumothorax. Groundglass densities in the lungs suggestive of atelectasis. Unremarkable soft tissues. Degenerative changes of the cervical spine. IMPRESSION: 1. No acute intracranial abnormality. 2. Unremarkable CTA of the head and neck. ACT 112: Negative or not required by law. The above report was generated using voice recognition software. It may contain grammatical, syntax or spelling errors. Electronically signed by: Cuco Morrell M.D. 01/02/2023 8:53 AM Neck CTA 01/02/23 08:17 CT head/brain wo con, CT angio neck with con, CT angio head w con CLINICAL HISTORY: 62 years-old Female with neuro deficit, acute stroke suspected. Acute strokelike symptoms TECHNIQUE: Multiple axial CT images of the head were obtained without contrast. CTA head and neck also obtained following the intravenous administration of 108 mL Optiray 320. 3-D coronal and sagittal maps were obtained and submitted for review. All measurements were obtained according to NASCET criteria. A dose lowering technique was utilized adhering to the principles of ALARA. CT DOSE: 2073.47 mGy.cm COMPARISON: None. FINDINGS: CT HEAD: No acute intracranial hemorrhage, midline shift, intracranial mass, hydrocephalus, territorial ischemia or abnormal extra-axial collection. The calvarium is intact. Mild mucosal thickening of the paranasal sinuses. Mastoid air cells are clear. CTA: Dilated pulmonary artery may represent pulmonary arterial hypertension. Atherosclerosis of the thoracic aorta. Patency of the innominate and image subclavian arteries. Common and internal carotid arteries are patent. Mild atherosclerosis of the right carotid bulb. Anterior and middle cerebral arteries are patent. Vertebral arteries are codominant and patent. The basilar and posterior cerebral arteries are patent. Cerebral venous sinuses are patent. No aneurysm, dissection, high-grade stenosis or arterial occlusion identified. No abnormal intracranial enhancement. No pneumothorax. Groundglass densities in the lungs suggestive of atelectasis. Unremarkable soft tissues. Degenerative changes of the cervical spine. IMPRESSION: 1. No acute intracranial abnormality. 2. Unremarkable CTA of the head and neck. ACT 112: Negative or not required by law. The above report was generated using voice recognition software. It may contain grammatical, syntax or spelling errors. Electronically signed by: Cuco Morrell M.D. 01/02/2023 8:53 AM ECG Additional Comments: 02-JAN-2023 08:33:41 [facility]-EDSTAT ROUTINE RETRIEVAL Normal sinus rhythm Normal ECG No previous ECGs available 25mm/s10mm/[id number] 243CID: [id number] by: REFERRED SELF Unconfirmed Vent. rate 67 BPM AL interval 166 ms QRS duration 82 ms QT/QTc 430/454 ms Code Status & VTE Plan Code Status Full code - discussed with the patient at bedside Supervising Physician Co-Signing Physician Notes Pt seen and examined with ROBERTO Jay. Agree with documented findings and plan. Ms. Spivey is a 62 year old female without much in terms of pmhx, in part d/t not seeing physicians regularly. Briefly she has a hx of HLP, vertigo, and morbid obesity (BMI 44.1). She presented initially for left sided weakness and numbness concerning or acute CVA. Teleneuro was consulted and recommended thrombolytic therapy however the patient refused. We discussed the plan of complete CVA workup including MRI, carotid US, and neuro consult. We will check a lipid panel. PT/OT consulted. No need for speech consult as she has no speech or swallow deficits. We add ASA and statin therapy to her regimen. Ms. Spivey also reported vague abdominal discomfort and intermittent post menopausal bleeding over the last year. Abdominal US is notable for pancreatic head mass. I will return to bedside to discuss this with the patient and review further workup and plan to consult oncology. Unfortunately the patient was unable to tolerate transvaginal US this morning. We will obtain a CT of the abdomen (without dye to avoid multiple contrast loads in one day). Workup also revealed elevated troponin. We will order an echo and consult cardiology. Pt reports negative stress test about one year ago. We'll check a lipid panel and A1c. Rest per attested note above.
--- NOTE | 2023-01-02 10:28 | XRay Report ---
XR chest 1V portable HISTORY: 62 years-old Female neuro deficit, acute stroke suspected acute strokelike symptoms COMPARISON: None TECHNIQUE: AP view of the chest FINDINGS: Cardiomediastinal and hilar silhouettes are within normal limits. Mild right hemidiaphragmatic elevat ion. No pneumothorax, pleural effusion, airspace consolidation or pulmonary edema. Degenerative mcgee es of the shoulders and spine. Bilateral shoulder rotator cuff calcific tendinosis. IMPRESSION: No acute process. ACT 112: Negative or not required by law. The above report was generated using voice recognition software. It may contain grammatical, syntax o r spelling errors. Electronically signed by: Cuco Morrell M.D. 01/02/2023 10:27 AM
[2023-01-02 11:10] LABS: Influenza A virus by PCR Negative (Neg); Influenza B virus by PCR Negative (Neg); RSV by PCR Negative (Neg); SARS CoV2 RNA(COVID-19) Ceph NEGATIVE (Negative)
[2023-01-02 11:45] LABS: iSTAT Creatinine 0.7 mg/dl (0.6-1.3); iSTAT Hemoglobin 12.6 g/dl (12.0-16.0); iSTAT Ionized Calcium 1.13 mmol/l (1.12-1.32); iSTAT Potassium 3.9 mmol/L (3.3-5.0)
--- NOTE | 2023-01-02 12:05 | Ultrasound Report ---
ULTRASOUND RIGHT UPPER QUADRANT ABDOMEN CLINICAL HISTORY: Postprandial right upper quadrant abdominal pain. COMPARISON STUDY: No priors. TECHNIQUE: Real-time, grayscale, and color flow sonography of the right upper quadrant of the abdomen was performed. Images are reviewed in the transverse and longitudinal planes. FINDINGS: Liver: The liver is mildly enlarged and demonstrates heterogeneously increased echotexture indicating steatosis. There is no intrahepatic biliary ductal dilatation. The main portal vein is patent. Gallbladder: The gallbladder is mildly distended and contains large shadowing gallstones as well as b iliary sludge. There is no gallbladder wall thickening or pericholecystic fluid. A sonographic Nunez 's sign is reportedly absent. The common bile duct measures up to 0.5 cm in diameter. Pancreas: There is an approximately 5 cm indeterminate hypoechoic density adjacent to pancreatic head . Right kidney: Survey images of the right kidney demonstrate normal size and echotexture. There is no hydronephrosis. Ascites: None. IMPRESSION: 1. There is an approximately 5 cm indeterminant hypoechoic density adjacent to the pancreatic head. C orrelation with a contrast-enhanced abdominal CT scan is recommended for further assessment. 2. Cholelithiasis and biliary sludge without sonographic evidence of acute cholecystitis. 3. Hepatomegaly and hepatic steatosis. ACT 112: Negative or not required by law. Electronically signed by: Celestine Gómez M.D. 01/02/2023 12:03 PM
--- NOTE | 2023-01-02 12:20 | Ultrasound Report ---
US pelvic complete HISTORY: 62 years-old Female vaginal bleeding postmenopausal acute postmenopausal vaginal bleeding COMPARISON: None TECHNIQUE: Multiple real-time sonographic images of the deep pelvic structures were obtained transabd ominally assessing grayscale appearance, color and spectral flow. FINDINGS: Anteflexed uterus measures 8.9 x 3.7 x 4.8 cm. No myometrial mass lesion. Homogeneous echogenic thick ening of the endometrium, 1.6 cm. Ovaries are not diagnostically visualized. Limited study secondary to patient body habitus. IMPRESSION: Pathologic thickening of the postmenopausal endometrium. Correlation with tissue sampling recommended. ACT 112: Negative or not required by law. The above report was generated using voice recognition software. It may contain grammatical, syntax o r spelling errors. Electronically signed by: Cuco Morrell M.D. 01/02/2023 12:19 PM
--- NOTE | 2023-01-02 13:36 | CT Scan Report ---
ABDOMEN AND PELVIS CT WITHOUT CONTRAST CT DOSE: 1493.32 mGy.cm HISTORY: Acute right upper quadrant abdominal pain Eval Pancreatic mass, vaginal bleeding TECHNIQUE: Multiaxial CT images of the abdomen and pelvis were performed without contrast. A dose lo wering technique was utilized adhering to the principles of ALARA. COMPARISON STUDY: Abdominal ultrasound of same day FINDINGS: No acute process of the imaged lower chest. Limited study without the use of contrast. Ptos is or pneumoperitoneum. Unremarkable unenhanced spleen, gallbladder and adrenal glands. The patient's cholelithiasis is not identified by ultrasound. Hepatomegaly with hepatic steatosis. No biliary duct al dilation. Mild pancreatic ductal dilation measures up to 6 mm. Ill-defined mass of the pancreatic head is confirmed measuring 4.3 x 3.6 cm. Mild peripancreatic stranding. Subcentimeter peripancreatic and paradise hepatic lymph nodes. The anterior margin of this lesion abuts the adjacent superior mesent mirna vein and also abuts the adjacent duodenum which penetrates mild wall thickening. Contrast noted within the renal collecting systems and urinary bladder. No hydronephrosis. Heterogene ous uterus. Atherosclerosis of the aorta. Tiny hiatal hernia. Moderate rectal fecal retention. Coloni c diverticulosis. No CT evidence of acute appendicitis. Small fat filled umbilical hernia. No acute f racture. IMPRESSION: 1. Confirmation of the 4.3 cm ill-defined pancreatic head mass resulting in upstream pancreatic ducta l dilation. Evaluation is limited without the use of IV contrast, however the imaging characteristics are suspicious for adenocarcinoma. GI consultation with endoscopy and tissue sampling recommended. 2. The pancreatic mass abuts and possibly infiltrates the adjacent duodenum . No obstruction. 3. No evidence of metastatic disease. 4. Hepatic steatosis. ACT 112: Negative or not required by law. The above report was generated using voice recognition software. It may contain grammatical, syntax o r spelling errors. Electronically signed by: Cuco Morrell M.D. 01/02/2023 1:35 PM
[2023-01-02] MEDS ORDERED: LORazepam 2 MG/1 ML VIAL IV STA (15:29)
[2023-01-02] MEDS ORDERED: Patient's ALLERGY Info needs ENTERED SCH (15:45)
--- NOTE | 2023-01-02 16:43 | Magnetic Resonance Report ---
MR brain wo con CLINICAL HISTORY: CVA r/o, Left sided weakness, pancreatic mass TECHNIQUE: Multiplanar and multisequence MR images of the brain were obtained without intravenous con trast. Comparison: Comparison is made to CT head 01/02/2023 FINDINGS: Exam is limited by patient motion. There is prominent restricted diffusion in the right parietotempor al region. A few punctate foci of restricted diffusion are also seen in the bilateral occipital lobes and right cerebellum. Matter edema is seen in the corresponding right parietotemporal region. The ve ntricular system is normal in appearance. No mass is seen. There is no mass effect or midline shift. Evaluation for hemorrhage is highly limited, no leighann hemorrhage is seen. No extra axial fluid collec tions are seen. The corpus callosum, pituitary gland, and cerebellar tonsils appear grossly unremarka ble. Flow voids of the major intracranial arterial vessels are identified. The imaged portions of the para nasal sinuses, mastoid air cells, and orbits are unremarkable. IMPRESSION: Findings are compatible with acute infarct in the right parietal temporal region as well as a few pun ctate occipital and cerebellar foci of infarct. Evaluation for hemorrhage is highly limited by patien t motion however no leighann hemorrhage is seen. ACT 112: Negative or not required by law. Electronically signed by: Janak Joy M.D. 01/02/2023 4:42 PM
[2023-01-02] MEDS ORDERED: PHARMACIST DISCHARGE MED REC CONSULT PRN (17:01)
[2023-01-02] MEDS: ATORVASTATIN 40 MG TAB PO SCH (19:46)
[2023-01-02] MEDS: ALUMINUM/MAGNESIUM/SIMETH (MAALOX MAX) 30 ML UDC PO PRN (20:39)
[2023-01-02] MEDS: ACETAMINOPHEN 325 MG TAB PO PRN (20:39)
[2023-01-03] MEDS: ACETAMINOPHEN 325 MG TAB PO PRN ×4 (00:35→21:00)
[2023-01-03] MEDS: SODIUM CHLORIDE 0.9% 1000ML 1,000 ML IV SCH ×2 (02:45→06:23)
--- NOTE | 2023-01-03 06:25 | Consultation ---
Date of Consultation January 03, 2023 Assessment & Plan (1) CVA (cerebral vascular accident): Larger left temporoparietal CVA but with associated small areas of possible separate areas of vascular compromise in the occipital lobe and cerebellum. CTA assessment of the head and neck does not show dramatic vascular changes. With possible multifocal vascular events and lacking dramatic cerebrovascular anatomic changes, certainly have to be concerned about a cardiac source for emboli. In the context of a possible pancreatic cancer with its associated Trousseau's like hypercoagulability, I would be particularly concerned as to whether she has a PFO and a potential for paradoxical embolism given that the e lectrocardiogram and exam do not suggest major valvular disorder. Echocardiography with bubble study to both assess for any valvular or intracardiac source of emboli but also for the potential for paradoxical embolism may impact upon management as a presence of a PFO would create a conversation about correction of that and/or about whether anticoagulation in addition or as opposed to antithrombotic therapy might be a consideration. It seems unlikely that there is any HAND PACKER/PACKAGER metastasis given that the pancreatic process seems to be localized in the noncontrast imaging confirms CVA like changes that could explain her symptoms. Do not feel that there is an immediate need for additional contrast imaging of the brain though certainly that would be a future consideration (2) Mass of pancreas: 4.3 cm mass the pancreas with apparent infiltration of the duodenum certainly highly suggests a pancreatic malignancy. Patient is understandably struggling emotionally with the simultaneous new diagnosis of CVA and the potential for pancreatic malignancy. Without definitive histologic confirmation, it is premature to unequivocally pronounce this as a pancreatic adenocarcinoma though it seems unlikely a benign lesion. Neuroendocrine tumors can also present in that organ albeit less often with such aggressive characteristics. Liver enzymes are normal, while there may be some early pancreatic duct obstruction she does not have dramatic and threatening symptomatology. Without precipitous threat from the pancreatic process immediate issue is to stabilize her from the CVA perspective and as such interrupting antithrombotic therapy prematurely could create more problems than it solves. I have indicated to her that she does have a pancreatic mass, certainly malignancy is on the differential, but that we need a biopsy before we can be more definitive in our conversations. Would imagine that before we interrupt antithrombotic therapy we should give her at least a couple of weeks of stabilization from the CVA perspective and, as above, perhaps better understand the potential origins of her CVA to assure that we have the optimal therapy in place for that. A multiphasic CT or MRI of the abdomen now may help to better define the pancreatic mass, though that may not be critical to our further assessment, but also could more specifically exclude subtle lesions of the liver. Finding those could be important for prognostication and also for defining options for obtaining tissue diagnosis. If there are liver lesions present, that might be the better source for final diagnosis. If not, we can probably make a diagnosis with endoscopic ultrasound guided bile Either technique, would involve interruption of her antithrombotic therapy. We can work with neurology to decide when that best window approaches and as well if she is on antiplatelet therapy consider transient anticoagulation "bridging" immediately before the event (3) Genetic carrier status: Her family history does not suggest a family cancer syndrome but any patient presenting with pancreatic cancer should be considered for germline screening especially for BRCA1 or BRCA2 mutations as the presence of those could have implications for family members, implications for the patient with regards to other malignancy risk, and potential implications for therapeutic intervention. 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 Would consider starting a PPI for optimal stomach protection and instituting at least prophylactic anticoagulation during her hospitalization and until she is more fully mobile. That should be instituted shared decision making with patient regarding the augmented bleeding risks of simultaneous anticoagulation and antiplatelet therapy Plan 1. Until we have a definitive histologic diagnosis, and to spare the patient immediately overwhelming medical concerns, I have acknowledged the potential presence of a pancreatic malignancy but of also said that until we have a definitive histologic diagnosis we have to be careful not to be prematurely excessively specific in our prognostication 2. Would consider a multiphasic abdominal imaging study, either CT or MRI, to more definitively define the pancreatic mass but even more importantly to rule out any occult liver lesions that might impact on prognosis and also upon how to best go about diagnosis 3. We will obtain echocardiography with bubble study for PFO to rule out intrinsic cardiac source of HAND PACKER/PACKAGER emboli but also the potential for paradoxical embolism -if the latter is present, with or without additional duplex studies to look for the presence or absence of DVT, may need to reconsider how we approach antithrombotic therapy for her HAND PACKER/PACKAGER event 4. In the absence of a PFO and specific concerned about paradoxical embolism, while she is less than optimally mobile and in the context of a very possible pancreatic adenocarcinoma, she is at risk for DVT and prophylactic dose anticoa gulation would be a consideration in combination with PPI and shared decision- making with the patient 5. Prematurely interrupting antithrombotic therapy for purposes of pursuing a tissue diagnosis may not impact upon her long-term prognosis with respect to the pancreatic cancer and put her at high risk for a new intervening HAND PACKER/PACKAGER event. Would suggest at least a couple of weeks of stabilization from a HAND PACKER/PACKAGER perspective and optimal definition of her overall issues with the above outlined work-up then in consultation with neurology determine timing and best transition plan for interrupt antithrombotic therapy to make a definitive diagnosis from oncologic perspective. Dr. Maharaj will be covering call for the weekend but I will be available through [place] text (not necessarily instantaneously) for routine follow-up questions History of Present Illness Reason for Consultation: Patient with no significant oncologic history who presents with a left parietotemporal CVA but is also noted to have a mass in the head of the pancreas Attending Physician: Tiera Pepper MD History of Present Illness Previously generally healthy 62-year-old woman who is a non-smoker and drinks alcohol only intermittently. 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 In retrospect, patient notes that she has had epigastric/stomach distress for at least several week and had had some weight loss though this was in her perspective volitional, a result of a purposeful attempt to do so given her elevated BMI. She is admitted acutely with the onset of left-sided weakness and numbness as well as some mild vertigo with a left parietotemporal area CVA and possible additional small areas of vascular compromise in the occipital lobe and cerebellum. Currently she is awake, alert, and other than some persistent mild throat discomfort in no acute physical distress but she is understandably emotionally concerned about the pancreatic lesion. Allergies Allergy/AdvReac Type Severity Reaction Status Date / Time No Known Allergies Allergy Unverified 01/02/23 15:45 Home Medications Medication Instructions Recorded Confirmed Type clonazepam 0.5 mg tablet 0.5 mg PO BID PRN Anxiety 01/02/23 01/02/23 History meloxicam 7.5 mg tablet 7.5 mg PO DAILY PRN Pain 01/02/23 01/02/23 History nitroglycerin 0.3 mg sublingual 0.3 mg sublingual UD 01/02/23 01/02/23 History tablet Patient History Medical History (Updated 01/03/23 @ 06:48 by El Bui MD) Anxiety HLD (hyperlipidemia) Hx of mammogram Obesity, morbid, BMI 40.0-49.9 Surgical History (Updated 01/02/23 @ 10:09 by Diya Jay PA-C) Hx of colonoscopy Family History (Updated 01/02/23 @ 10:09 by Diya Jay PA-C) Father Cancer Grandmother (Paternal) Cancer Breast cancer Social History Smoking Status: Never smoker Second Hand Exposure: No; Do You Dip or Chew Tobacco: No; Tobacco Cessation Education Requested by Patient: No Hx Alcohol Use: Yes Hx Substance Use: No Aquarium Tank Attendant Required: No Beliefs That Will Affect Care: None Current Living Situation: Spouse Other Information That Helps Us Care for You: No Feels Safe at Home: Yes Safety Concerns: Feels Safe At This Time Assistive Devices: Cane and Glasses Physical Exam Physical Exam: Modest systolic hypertension but otherwise vital signs are stable She has no scleral or skin icterus There is no pathologic adenopathy in the cervical, supraclavicular, axillary region with particular attention to the left supraclavicular area. Lungs are clear present auscultation without focal rubs rales or wheezes Cardiac rhythm is regular and I can hear no pathological murmurs. Abdomen is soft. There is no more than vague tenderness to deep palpation in the epigastrium and certainly no rigidity, guarding or notable mass. She has no organomegaly. Bowel sounds seem normal active Extremities are symmetric without suggestion of DVT Neurologically she does have some subtle weakness on the left side but other than that seems grossly intact and certainly her cognitive function seems intact and she is capable of good medical decision-making Results & Data Vital Signs (Past 12 Hours) Vital Signs Temp Pulse Pulse Resp BP Pulse Ox O2 Del Method 01/03/23 04:33 37 C 84 16 168/84 H 97 Room Air 01/02/23 23:56 36.8 C 80 16 166/85 H 97 Room Air 01/02/23 23:07 73 01/02/23 19:56 36.4 C L 80 18 154/87 H 97 Room Air Laboratory Results Laboratory Results - last 24 hr 01/02/23 01/02/23 01/02/23 08:31 08:32 08:32 WBC 9.89 RBC 4.74 Hgb 12.6 POC Hgb Hct 38.6 POC Hct MCV 81.4 MCH 26.6 MCHC 32.6 RDW Std Deviation 39.8 RDW Coeff of Kristin 13.3 Plt Count 256 MPV 9.3 L Immature Gran % (Auto) 0.3 Neut % (Auto) 82.3 Lymph % (Auto) 9.2 Brewster % (Auto) 5.8 Eos % (Auto) 1.8 Baso % (Auto) 0.6 Neut # (Auto) 8.14 H Lymph # (Auto) 0.91 L Brewster # (Auto) 0.57 Eos # (Auto) 0.18 Baso # (Auto) 0.06 Immature Gran # (Auto) 0.03 PT 11.5 INR 1.1 APTT 26.1 PTT Ratio 0.9 POC Sodium Sodium POC Potassium Potassium POC Chloride Chloride Carbon Dioxide POC Total CO2 Anion Gap POC Anion Gap POC BUN BUN Creatinine POC Creatinine Est Cr Clr Drug Dosing Est GFR ( Amer) Est GFR (Non-Af Amer) BUN/Creatinine Ratio Glucose POC Glucose 151 H POC Glucose (other) Calcium POC Ioniz Calcium Alex Magnesium Total Bilirubin AST ALT Alkaline Phosphatase Troponin I High Sens Total Protein Albumin Globulin Albumin/Globulin Ratio SARS-CoV-2 (PCR) Influenza Type A (PCR) Influenza Type B (PCR) RSV (RT-PCR) 01/02/23 01/02/23 01/02/23 08:32 08:37 10:04 WBC RBC Hgb POC Hgb 12.6 Hct POC Hct 37 MCV MCH MCHC RDW Std Deviation RDW Coeff of Kristin Plt Count MPV Immature Gran % (Auto) Neut % (Auto) Lymph % (Auto) Brewster % (Auto) Eos % (Auto) Baso % (Auto) Neut # (Auto) Lymph # (Auto) Brewster # (Auto) Eos # (Auto) Baso # (Auto) Immature Gran # (Auto) PT INR APTT PTT Ratio POC Sodium 137 Sodium 135 L POC Potassium 3.9 Potassium 3.9 POC Chloride 102 Chloride 102 Carbon Dioxide 24 POC Total CO2 22 L Anion Gap 9 POC Anion Gap 18.0 POC BUN 11 BUN 12 Creatinine 0.73 POC Creatinine 0.7 Est Cr Clr Drug Dosing 110.1 Est GFR ( Amer) 103.8 Est GFR (Non-Af Amer) 89.5 BUN/Creatinine Ratio 16.4 Glucose 163 H POC Glucose POC Glucose (other) 168 H Calcium 9.4 POC Ioniz Calcium Alex 1.13 Magnesium 2.0 Total Bilirubin 0.5 AST 15 ALT 13 Alkaline Phosphatase 83 Troponin I High Sens 255.6 H* Total Protein 7.0 Albumin 3.9 Globulin 3.1 Albumin/Globulin Ratio 1.3 SARS-CoV-2 (PCR) NEGATIVE Influenza Type A (PCR) Negative Influenza Type B (PCR) Negative RSV (RT-PCR) Negative 01/02/23 01/02/23 01/03/23 18:53 22:38 00:31 WBC RBC Hgb POC Hgb Hct POC Hct MCV MCH MCHC RDW Std Deviation RDW Coeff of Kristin Plt Count MPV Immature Gran % (Auto) Neut % (Auto) Lymph % (Auto) Brewster % (Auto) Eos % (Auto) Baso % (Auto) Neut # (Auto) Lymph # (Auto) Brewster # (Auto) Eos # (Auto) Baso # (Auto) Immature Gran # (Auto) PT INR APTT PTT Ratio POC Sodium Sodium POC Potassium Potassium POC Chloride Chloride Carbon Dioxide POC Total CO2 Anion Gap POC Anion Gap POC BUN BUN Creatinine POC Creatinine Est Cr Clr Drug Dosing Est GFR ( Amer) Est GFR (Non-Af Amer) BUN/Creatinine Ratio Glucose POC Glucose 130 H POC Glucose (other) Calcium POC Ioniz Calcium Alex Magnesium Total Bilirubin AST ALT Alkaline Phosphatase Troponin I High Sens 261.6 H* 323.9 H* D Total Protein Albumin Globulin Albumin/Globulin Ratio SARS-CoV-2 (PCR) Influenza Type A (PCR) Influenza Type B (PCR) RSV (RT-PCR) Diagnostic Findings Chest X-Ray 01/02/23 08:17 XR chest 1V portable HISTORY: 62 years-old Female neuro deficit, acute stroke suspected acute strokelike symptoms COMPARISON: None TECHNIQUE: AP view of the chest FINDINGS: Cardiomediastinal and hilar silhouettes are within normal limits. Mild right hemidiaphragmatic elevation. No pneumothorax, pleural effusion, airspace consolidation or pulmonary edema. Degenerative changes of the shoulders and spine. Bilateral shoulder rotator cuff calcific tendinosis. IMPRESSION: No acute process. ACT 112: Negative or not required by law. The above report was generated using voice recognition software. It may contain grammatical, syntax or spelling errors. Electronically signed by: Cuco Morrell M.D. 01/02/2023 10:[address] 01/02/23 08:17 CT head/brain wo con, CT angio neck with con, CT angio head w con CLINICAL HISTORY: 62 years-old Female with neuro deficit, acute stroke suspected. Acute strokelike symptoms TECHNIQUE: Multiple axial CT images of the head were obtained without contrast. CTA head and neck also obtained following the intravenous administration of 108 mL Optiray 320. 3-D coronal and sagittal maps were obtained and submitted for review. All measurements were obtained according to NASCET criteria. A dose lowering technique was utilized adhering to the principles of ALARA. CT DOSE: 2073.47 mGy.cm COMPARISON: None. FINDINGS: CT HEAD: No acute intracranial hemorrhage, midline shift, intracranial mass, hydrocephalus, territorial ischemia or abnormal extra-axial collection. The calvarium is intact. Mild mucosal thickening of the paranasal sinuses. Mastoid air cells are clear. CTA: Dilated pulmonary artery may represent pulmonary arterial hypertension. Atherosclerosis of the thoracic aorta. Patency of the innominate and image subclavian arteries. Common and internal carotid arteries are patent. Mild atherosclerosis of the right carotid bulb. Anterior and middle cerebral arteries are patent. Vertebral arteries are codominant and patent. The basilar and posterior cerebral arteries are patent. Cerebral venous sinuses are patent. No aneurysm, dissection, high-grade stenosis or arterial occlusion identified. No abnormal intracranial enhancement. No pneumothorax. Groundglass densities in the lungs suggestive of atelectasis. Unremarkable soft tissues. Degenerative changes of the cervical spine. IMPRESSION: 1. No acute intracranial abnormality. 2. Unremarkable CTA of the head and neck. ACT 112: Negative or not required by law. The above report was generated using voice recognition software. It may contain grammatical, syntax or spelling errors. Electronically signed by: Cuco Morrell M.D. 01/02/2023 8:53 AM Head CTA 01/02/23 08:17 CT head/brain wo con, CT angio neck with con, CT angio head w con CLINICAL HISTORY: 62 years-old Female with neuro deficit, acute stroke suspected. Acute strokelike symptoms TECHNIQUE: Multiple axial CT images of the head were obtained without contrast. CTA head and neck also obtained following the intravenous administration of 108 mL Optiray 320. 3-D coronal and sagittal maps were obtained and submitted for review. All measurements were obtained according to NASCET criteria. A dose lowering technique was utilized adhering to the principles of ALARA. CT DOSE: 2073.47 mGy.cm COMPARISON: None. FINDINGS: CT HEAD: No acute intracranial hemorrhage, midline shift, intracranial mass, hydrocephalus, territorial ischemia or abnormal extra-axial collection. The calvarium is intact. Mild mucosal thickening of the paranasal sinuses. Mastoid air cells are clear. CTA: Dilated pulmonary artery may represent pulmonary arterial hypertension. Atherosclerosis of the thoracic aorta. Patency of the innominate and image subclavian arteries. Common and internal carotid arteries are patent. Mild atherosclerosis of the right carotid bulb. Anterior and middle cerebral arteries are patent. Vertebral arteries are codominant and patent. The basilar and posterior cerebral arteries are patent. Cerebral venous sinuses are patent. No aneurysm, dissection, high-grade stenosis or arterial occlusion identified. No abnormal intracranial enhancement. No pneumothorax. Groundglass densities in the lungs suggestive of atelectasis. Unremarkable soft tissues. Degenerative changes of the cervical spine. IMPRESSION: 1. No acute intracranial abnormality. 2. Unremarkable CTA of the head and neck. ACT 112: Negative or not required by law. The above report was generated using voice recognition software. It may contain grammatical, syntax or spelling errors. Electronically signed by: Cuco Morrell M.D. 01/02/2023 8:53 AM Neck CTA 01/02/23 08:17 CT head/brain wo con, CT angio neck with con, CT angio head w con CLINICAL HISTORY: 62 years-old Female with neuro deficit, acute stroke suspected. Acute strokelike symptoms TECHNIQUE: Multiple axial CT images of the head were obtained without contrast. CTA head and neck also obtained following the intravenous administration of 108 mL Optiray 320. 3-D coronal and sagittal maps were obtained and submitted for review. All measurements were obtained according to NASCET criteria. A dose lowering technique was utilized adhering to the principles of ALARA. CT DOSE: 2073.47 mGy.cm COMPARISON: None. FINDINGS: CT HEAD: No acute intracranial hemorrhage, midline shift, intracranial mass, hydrocephalus, territorial ischemia or abnormal extra-axial collection. The calvarium is intact. Mild mucosal thickening of the paranasal sinuses. Mastoid air cells are clear. CTA: Dilated pulmonary artery may represent pulmonary arterial hypertension. Atherosclerosis of the thoracic aorta. Patency of the innominate and image subclavian arteries. Common and internal carotid arteries are patent. Mild atherosclerosis of the right carotid bulb. Anterior and middle cerebral arteries are patent. Vertebral arteries are codominant and patent. The basilar and posterior cerebral arteries are patent. Cerebral venous sinuses are patent. No aneurysm, dissection, high-grade stenosis or arterial occlusion identified. No abnormal intracranial enhancement. No pneumothorax. Groundglass densities in the lungs suggestive of atelectasis. Unremarkable soft tissues. Degenerative changes of the cervical spine. IMPRESSION: 1. No acute intracranial abnormality. 2. Unremarkable CTA of the head and neck. ACT 112: Negative or not required by law. The above report was generated using voice recognition software. It may contain grammatical, syntax or spelling errors. Electronically signed by: Cuco Morrell M.D. 01/02/2023 8:53 AM Gallbladder Ultrasound 01/02/23 09:34 ULTRASOUND RIGHT UPPER QUADRANT ABDOMEN CLINICAL HISTORY: Postprandial right upper quadrant abdominal pain. COMPARISON STUDY: No priors. TECHNIQUE: Real-time, grayscale, and color flow sonography of the right upper quadrant of the abdomen was performed. Images are reviewed in the transverse and longitudinal planes. FINDINGS: Liver: The liver is mildly enlarged and demonstrates heterogeneously increased echotexture indicating steatosis. There is no intrahepatic biliary ductal dilatation. The main portal vein is patent. Gallbladder: The gallbladder is mildly distended and contains large shadowing gallstones as well as biliary sludge. There is no gallbladder wall thickening or pericholecystic fluid. A sonographic Nunez's sign is reportedly absent. The common bile duct measures up to 0.5 cm in diameter. Pancreas: There is an approximately 5 cm indeterminate hypoechoic density adjacent to pancreatic head. Right kidney: Survey images of the right kidney demonstrate normal size and echotexture. There is no hydronephrosis. Ascites: None. IMPRESSION: 1. There is an approximately 5 cm indeterminant hypoechoic density adjacent to the pancreatic head. Correlation with a contrast-enhanced abdominal CT scan is recommended for further assessment. 2. Cholelithiasis and biliary sludge without sonographic evidence of acute cholecystitis. 3. Hepatomegaly and hepatic steatosis. ACT 112: Negative or not required by law. Electronically signed by: Celestine Gómez M.D. 01/02/2023 12:03 PM Pelvis Ultrasound 01/02/23 11:02 US pelvic complete HISTORY: 62 years-old Female vaginal bleeding postmenopausal acute postmenopausal vaginal bleeding COMPARISON: None TECHNIQUE: Multiple real-time sonographic images of the deep pelvic structures were obtained transabdominally assessing grayscale appearance, color and spectral flow. FINDINGS: Anteflexed uterus measures 8.9 x 3.7 x 4.8 cm. No myometrial mass lesion. Homogeneous echogenic thickening of the endometrium, 1.6 cm. Ovaries are not diagnostically visualized. Limited study secondary to patient body habitus. IMPRESSION: Pathologic thickening of the postmenopausal endometrium. Correlation with tissue sampling recommended. ACT 112: Negative or not required by law. The above report was generated using voice recognition software. It may contain grammatical, syntax or spelling errors. Electronically signed by: Cuco Morrell M.D. 01/02/2023 12:19 PM Abdomen/Pelvis CT 01/02/23 12:[address] WITHOUT CONTRAST CT DOSE: 1493.32 mGy.cm HISTORY: Acute right upper quadrant abdominal pain Eval Pancreatic mass, vaginal bleeding TECHNIQUE: Multiaxial CT images of the abdomen and pelvis were performed without contrast. A dose lowering technique was utilized adhering to the principles of ALARA. COMPARISON STUDY: Abdominal ultrasound of same day FINDINGS: No acute process of the imaged lower chest. Limited study without the use of contrast. Ptosis or pneumoperitoneum. Unremarkable unenhanced spleen, gallbladder and adrenal glands. The patient's cholelithiasis is not identified by ultrasound. Hepatomegaly with hepatic steatosis. No biliary ductal dilation. Mild pancreatic ductal dilation measures up to 6 mm. Ill-defined mass of the pancreatic head is confirmed measuring 4.3 x 3.6 cm. Mild peripancreatic stranding. Subcentimeter peripancreatic and paradise hepatic lymph nodes. The anterior margin of this lesion abuts the adjacent superior mesenteric vein and also abuts the adjacent duodenum which penetrates mild wall thickening. Contrast noted within the renal collecting systems and urinary bladder. No hydronephrosis. Heterogeneous uterus. Atherosclerosis of the aorta. Tiny hiatal hernia. Moderate rectal fecal retention. Colonic diverticulosis. No CT evidence of acute appendicitis. Small fat filled umbilical hernia. No acute fracture. IMPRESSION: 1. Confirmation of the 4.3 cm ill-defined pancreatic head mass resulting in upstream pancreatic ductal dilation. Evaluation is limited without the use of IV contrast, however the imaging characteristics are suspicious for adenocarcinoma. GI consultation with endoscopy and tissue sampling recommended. 2. The pancreatic mass abuts and possibly infiltrates the adjacent duodenum . No obstruction. 3. No evidence of metastatic disease. 4. Hepatic steatosis. ACT 112: Negative or not required by law. The above report was generated using voice recognition software. It may contain grammatical, syntax or spelling errors. Electronically signed by: Cuco Morrell M.D. 01/02/2023 1:35 PM Brain MRI 01/02/23 13:57 MR brain wo con CLINICAL HISTORY: CVA r/o, Left sided weakness, pancreatic mass TECHNIQUE: Multiplanar and multisequence MR images of the brain were obtained without intravenous contrast. Comparison: Comparison is made to CT head 01/02/2023 FINDINGS: Exam is limited by patient motion. There is prominent restricted diffusion in the right parietotemporal region. A few punctate foci of restricted diffusion are also seen in the bilateral occipital lobes and right cerebellum. Matter edema is seen in the corresponding right parietotemporal region. The ventricular system is normal in appearance. No mass is seen. There is no mass effect or midline shift. Evaluation for hemorrhage is highly limited, no leighann hemorrhage is seen. No extra axial fluid collections are seen. The corpus callosum, pituitary gland, and cerebellar tonsils appear grossly unremarkable. Flow voids of the major intracranial arterial vessels are identified. The imaged portions of the paranasal sinuses, mastoid air cells, and orbits are unremarkable. IMPRESSION: Findings are compatible with acute infarct in the right parietal temporal region as well as a few punctate occipital and cerebellar foci of infarct. Evaluation for hemorrhage is highly limited by patient motion however no leighann hemorrhage is seen. ACT 112: Negative or not required by law. Electronically signed by: Janak Joy M.D. 01/02/2023 4:42 PM PG Care Time/CCT Total # of Minutes Spent Total Time Spent with Patient: Total time spent is greater than 50% in coordination of care (as documented) at patient's floor/unit and/or counseling patient: [place] [address] IN/OBS CONSULT LVL 4,60M Patient Type New History Expanded Problem Focused Exam Expanded Problem Focused Medical Decision Making High Complexity Diagnoses CVA (cerebral vascular accident) I63.9 Mass of pancreas K86.89 Genetic carrier status Z14.8 At risk for deep venous thrombosis Z91.89
[2023-01-03 09:00] LABS: BUN Creatinine Ratio 10.3 (10-20); Calcium 9.2 mg/dl (8.6-10.3); Creatinine Clr Calc Pharmacy 137.4 ml/min; Est GFR (African American) 116.1 ml/min; Est GFR (Non-African American) 100.2 ml/min
--- NOTE | 2023-01-03 09:09 | Neurology Consultation ---
Date of Consultation January 03, 2023 Assessment & Plan (1) Acute CVA (cerebrovascular accident): (2) Acute left hemiparesis: (3) Mass of pancreas: (4) Anxiety: Plan this patient has suffered a medium-sized right middle cerebral artery distribution acute stroke resulting in left froilan paresis. However, in addition, there are punctate acute strokes in both occipital lobes and the right cerebellum. These strokes, plus unremarkable CT angiography of the head and neck point to a cardiac source (embolic). Echocardiogram is pending. Although she has some dyslipidemia she does not have other stroke risk factors such as hypertension, cigarette smoking, or diabetes ( although the glucose was mildly elevated this morning ). Hemoglobin A1c is pending. The patient has considerable anxiety and some emotionally lability this morning. The patient has a pancreatic mass and is now followed by Oncology. There is no evidence of metastases Recommendations: 1. Awaiting echocardiogram 2. Keep on 81 milligram aspirin will make additional recommendations of treatment once the echocardiogram report is available 3. Physical, occupational and speech therapy consult, increase activity as able. 4. Awaiting fasting lipid profile and hemoglobin A1c Overall, I spent a total of 90 minutes with this case including review of records, review of MRI films, direct evaluation the patient at bedside, report generation, and discussion of the case with the patient and RN at bedside, and Dr. Byrne, including differential diagnosis and treatment options. History of Present Illness Reason for Consultation: Patient is a 62-year-old, who was asked to see at the request of Ximena Cullen PA-C, for neurologic consultation regarding stroke. Requesting Physician: Ximena Cullen PA-C Attending Physician: Tera Byrne MD History of Present Illness Patient has a history of dyslipidemia but no obvious history of hypertension, diabetes heart disease, cigarette. She does have some anxiety. Patient has a longstanding history of migraine headaches since her teen years. Over the years they have been less frequent severe but they still occur perhaps once per year. She will start out with a pain in her right which will Pravin rate intensify around her right with some photophobia. She typically does get nausea or. She tends to use peppermint oil, and rub that in her baptism. This will abort the headache if she does this early. Patient was in her usual state of health she woke up January 02 around 0615. She was getting herself ready and getting dressed for work when she noted the onset of a sharp bifrontal headache and weakness in her left leg and arm. She had no speech issue or facial problem but did notice some numbness in her left hand. She arrived to the emergency room January 02 at 08:30 with a temperature 36.6, pulse 67 regular, respiratory rate 24, blood pressure 147/70, and O2 saturation 100 percent. On examination she had mild weakness in her left arm and leg with perhaps some ataxia of the left arm. There was some subjective dysesthesias in the left hand. The patient declined TNK, despite the recommendation by [facility] stroke and our emergency room physician. Patient did have some abdominal pain for 1 week as well as some recent history of vaginal bleeding (since her last Covid-19 vaccine) CBC was unremarkable. Chem profile was remarkable for glucose of 163. Troponin was elevated 255. chest x-ray was unremarkable. CT scan of the head showed no acute changes. CT angiography of the head and neck were unremarkable and showed no evidence of vascular stenoses or anomalies. MRI of the brain showed a medium-size right parietotemporal stroke with other acute punctate strokes in bioccipital head regions and the right cerebellum. There was no evidence of hemorrhage. I reviewed these films. CT of the abdomen and pelvis showed a 4.3 centimeter pancreatic head mass without other evidence of metastases. There was also hepatic steatosis. This morning the patient feels that she has a little weakness in her left arm and leg but no numbness or tingling. Her speech and vision are unremarkable. She is crying at many things that are discussed patient says that she is a "familia" and nothing specifically is bothering her otherwise. I did see her after she saw Dr. Feliz. complains of a right-sided headache ( 3-11/03) This morning blood pressure was 138/84 and she is afebrile. Hemoglobin A1c and echocardiogram pending. The patient saw Dr. Feliz in consultation this morning and he is developing a plan for further evaluation the pancreatic mass. Allergies Allergy/AdvReac Type Severity Reaction Status Date / Time No Known Allergies Allergy Unverified 01/02/23 15:45 Home Medications Medication Instructions Recorded Confirmed Type clonazepam 0.5 mg tablet 0.5 mg PO BID PRN Anxiety 01/02/23 01/02/23 History meloxicam 7.5 mg tablet 7.5 mg PO DAILY PRN Pain 01/02/23 01/02/23 History nitroglycerin 0.3 mg sublingual 0.3 mg sublingual UD 01/02/23 01/02/23 History tablet Patient History Medical History Anxiety HLD (hyperlipidemia) Hx of mammogram Obesity, morbid, BMI 40.0-49.9 Surgical History Hx of colonoscopy Family History Father , age 64 prostate cancer Prostate cancer Grandmother (Paternal) Cancer Breast cancer Social History Smoking Status: Never smoker Second Hand Exposure: No; Do You Dip or Chew Tobacco: No; Hx Alcohol Use: Yes Alcohol Intake Frequency: Monthly or Less Hx Substance Use: No Wood Setter Required: No Beliefs That Will Affect Care: None Current Living Situation: Spouse and Family current occupational status: employed 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 Feels Safe at Home: Yes Assistive Devices: Cane and Glasses Review of Systems Constitutional: no fever, no fatigue and no weakness Eyes: no diplopia, no eye pain and no worsening vision Ear, Nose, Mouth, Throat: + dizziness; no ear pain, no tinnitus, no hearing loss, no snoring, no hoarseness and no dysphagia Respiratory: no cough and no dyspnea Cardiovascular: no chest pain, no palpitations and no lightheadedness Gastrointestinal: no abdominal pain, no nausea and no vomiting Genitourinary: no dysuria, no urinary frequency and no urinary incontinence Musculoskeletal: + back pain; no neck pain, no radicular pain, no joint pain and no myalgia Integumentary: no rash and no lesions Neurologic: + localized weakness and + headache(s); no gait abnormality, no generalized weakness, no tingling, no numbness, no tremor(s), no abnormal movements, no abnormal speech, no confusion and no memory loss Psychiatric: + anxiety; no depression, no irritability, no difficulty concentrating, no confusion and no hallucinations Endocrine: no fatigue and no flushing Hematologic / Lymphatic: no easy bleeding and no easy bruising Allergy / Immunological: no urticaria and no problem reported Exam (Neuro) Physical Exam: The patient is right-handed. The patient is awake, alert, and attentive. Speech is normal without any aphasia or dysarthria. The patient can name objects, repeat phrases, and has normal spontaneous speech. Mentation and thought processes are intact, with orientation to person, place and time, and normal fund of knowledge. Attention and concentration are normal. Mood is somewhat labile and she cries frequently however, affect is appropriate. General appearance and grooming are normal. Short and long-term memory are intact to conversation. Pupils are 4 mm bilaterally and reactive to light. Extraocular eye muscles are intact without nystagmus. Visual acuity and visual triplett seem normal grossly to confrontation. There are no deficits to sensation in the face in all 3 distributions of the fifth cranial nerve bilaterally. Corneal reflexes are positive bilaterally. Facial strength and symmetry was normal bilaterally. Hearing seems normal bilaterally. Palate moves well without asymmetry. There is normal sternocleidomastoid and trapezius (shoulder shrug) strength bilaterally. Tongue is midline with good strength bilaterally. Neck has a full range of motion without discomfort. There are no cervical bruits bilaterally. There are no cranial or ocular bruits. Heart is without murmur. There is a regular rhythm and rate. Cervical, thoracic, and lumbar spine are nontender to palpation. Gait is difficult and she limps favoring the left leg. Stance with feet together and eyes open is reasonable. Stance sitting with feet dangling over the edge of the bed is as well With outstretched arms there is drift on the left. There are no resting, postural, or action tremors. There is no ataxia with finger to nose testing. There is good facility in the right hand and decreased in the left hand. No other abnormal involuntary movements are noted. Motor strength is 5/5 diffusely in the right upper extremityincluding deltoids, biceps, triceps, brachioradialis, wrist flexors and extensors, driver's license examiner, and intrinsic hand muscles. strength in the left upper extremity is 4/5 diffusely both proximally and distally. Motor strength is 5/5 diffusely in the Right lower extremity including hip flexors, quadriceps, hamstrings, gastrocnemius, tibialis anterior, tibialis posterior, and Peroneii muscles. these muscles were 4/5 diffusely in the left lower extremity. there is good bulk in the extensor digitorum brevis muscles bilaterally. The limbs have good tone without rigidity or spasticity. There is no atrophy noted in the muscles. Muscle bulk is normal, there is no tenderness to palpation, no myotonia to percussion, and no fasciculations seen. Sensory examination is intact to touch and pin throughout all 4 limbs diffusely. Reflexes are 2/4 in the biceps, triceps, brachioradialis, quadriceps, and Achilles tendons bilaterally. There is no clonus bilaterally. Toes are downgoing with plantar stimulation On the right and upgoing on plantar stimulation on the left. Peripheral pulses are present and of normal quality distally in all 4 limbs. There is no peripheral edema noted in the limbs. Results & Data Vital Signs (Past 12 Hours) Vital Signs Temp Pulse Pulse Pulse Resp BP Pulse Ox 01/03/23 08:27 36.8 C 72 16 138/84 100 01/03/23 04:33 37 C 84 16 168/84 H 97 01/02/23 23:56 36.8 C 80 16 166/85 H 97 01/02/23 23:07 73 O2 Del Method 01/03/23 08:27 Room Air 01/03/23 04:33 Room Air 01/02/23 23:56 Room Air 01/02/23 23:07 PG Care Time/CCT Total # of Minutes Spent Total Time Spent with Patient: Total time spent is greater than 50% in coordination of care (as documented) at patient's floor/unit and/or counseling patient: Coding Level of Care Code 38200 IN/OBS CONSULT LVL 5,80M Diagnoses Acute CVA (cerebrovascular accident) I63.9 Acute left hemiparesis G81.94 Mass of pancreas K86.89 Anxiety F41.9 Time Spent (min) 90
[2023-01-03 09:14] LABS: Troponin I High Sensitivity 257.1 pg/ml (0-14)
[2023-01-03 09:18] LABS: Basophils # (auto) 0.05 K/uL (0-0.2); Basophils % (auto) 0.5 %; Eosinophils # (auto) 0.21 K/uL (0-0.50); Hemoglobin 14.3 g/dl (12.0-16.0); Immature Granulocytes # (auto) 0.04 K/uL (0.01-0.20); Immature Granulocytes % (auto) 0.4 %; Lymphocytes # (auto) 1.56 K/uL (1.2-3.4); Lymphocytes % (auto) 14.7 %; Mean Corpuscular Hemoglobin 26.9 pg (25.0-34.0); Mean Corpuscular Hgb Conc 31.8 g/dL (32.0-36.0); Mean Corpuscular Volume 84.6 fL (80.0-100.0); Mean Platelet Volume 9.9 fL (9.4-12.4); Monocytes # (auto) 0.64 K/uL (0.11-0.59); Neutrophils # (auto) 8.09 K/uL (1.40-6.50); Neutrophils % (auto) 76.4 %; Platelet Count 273 K/uL (130-400); Platelet Estimate Normal (Normal); RDW Standard Deviation 43.1 fL (36.4-46.3); Red Blood Count 5.32 M/uL (4.20-5.40); White Blood Count 10.59 K/ul (4.8-10.8)
[2023-01-03] MEDS: ASPIRIN 81 MG ECTAB PO SCH (09:28)
[2023-01-03] MEDS: ATORVASTATIN 40 MG TAB PO SCH (09:28)
[2023-01-03 10:33] LABS: Estimated Average Glucose 137 mg/dl; Hemoglobin A1C 6.4 % (4.5-5.6)
--- NOTE | 2023-01-03 13:47 | Cardiology Consultation ---
Date of Consultation January 03, 2023 Assessment & Plan (1) Acute CVA (cerebrovascular accident): (2) Acute left hemiparesis: (3) Elevated troponin: (4) HLD (hyperlipidemia): (5) Obesity, morbid, BMI 40.0-49.9: Plan Patient is a 62-year-old female presented acutely with left-sided weakness and findings of right temporal and parietal lobe stroke pattern suggestive of embolic phenomena. Troponins elevated but flat No recent cardiac symptoms no history of arrhythmias Initial telemetry without arrhythmia EKG is normal serially Echocardiogram demonstrates preserved LV systolic function without wall motion abnormality or significant valvular abnormality. Intra-atrial septum int errogated by agitated saline contrast without shunt Impression: Possible embolic stroke Elevated troponin without cardiac anomaly, normal EKG and LV systolic function Recommendations: As per neurology agree aspirin plus lipid-lowering therapy Given age of 62 may consider transesophageal echocardiogram in next 2 to 4 weeks to complete evaluate Maintain telemetry in hospital and event monitor post discharge History of Present Illness Reason for Consultation: Stroke, elevated troponin Requesting Physician: Dr. Byrne Attending Physician: Tera Byrne MD History of Present Illness Patient is a 62-year-old female underlying medical concerns 1. Obesity 2. Dyslipidemia 3. Familial history of ischemic heart disease, brother age 61 Patient has not sought recent medical care until ER presentation yesterday She noted abrupt onset symptoms of left-sided weakness and headache with fall while attempting to get dressed for work Presented to ER promptly but declined lytic therapy for stroke CT and MRI reflective of right temporal and parietal lobe stroke, acute possibly embolic Patient denies prior history of cardiac disease or arrhythmias. Notes no sense of tachypalpitations chest pain or shortness of breath but is relatively sedentary Was evaluated for chest pressure symptoms in 2019 with negative stress testing at that time Predominant complaints recently have been abdominal bloating and discomfort No edema No acute weight gain Laboratory studies notable for elevated troponin though flat EKG serially normal Echocardiogram with mild left ventricular hypertrophy and normal LV systolic Allergies Allergy/AdvReac Type Severity Reaction Status Date / Time No Known Allergies Allergy Unverified 01/02/23 15:45 Home Medications Medication Instructions Recorded Confirmed Type clonazepam 0.5 mg tablet 0.5 mg PO BID PRN Anxiety 01/02/23 01/02/23 History meloxicam 7.5 mg tablet 7.5 mg PO DAILY PRN Pain 01/02/23 01/02/23 History nitroglycerin 0.3 mg sublingual 0.3 mg sublingual UD 01/02/23 01/02/23 History tablet Patient History Medical History Anxiety HLD (hyperlipidemia) Hx of mammogram Obesity, morbid, BMI 40.0-49.9 Surgical History Hx of colonoscopy Family History Father , age 64 prostate cancer Prostate cancer Grandmother (Paternal) Cancer Breast cancer Social History Smoking Status: Never smoker Second Hand Exposure: No; Do You Dip or Chew Tobacco: No; Tobacco Cessation Education Requested by Patient: No Hx Alcohol Use: Yes Alcohol Intake Frequency: Monthly or Less Hx Substance Use: No Home Visits Nurse Required: No Beliefs That Will Affect Care: None Current Living Situation: Spouse and Family current occupational status: employed 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 Other Information That Helps Us Care for You: No Feels Safe at Home: Yes Safety Concerns: Feels Safe At This Time Assistive Devices: Cane and Glasses Results & Data Vital Signs (Past 12 Hours) Vital Signs Temp Pulse Pulse Resp BP Pulse Ox O2 Del Method 01/03/23 12:19 36.6 C 69 20 157/75 H 96 Room Air 01/03/23 08:27 36.8 C 72 16 138/84 100 Room Air 01/03/23 04:33 37 C 84 16 168/84 H 97 Room Air Laboratory Results Laboratory Results - last 24 hr 01/02/23 01/02/23 01/03/23 18:53 22:38 00:31 WBC RBC Hgb Hct MCV MCH MCHC RDW Std Deviation RDW Coeff of Kristin Plt Count MPV Immature Gran % (Auto) Neut % (Auto) Lymph % (Auto) Millard % (Auto) Eos % (Auto) Baso % (Auto) Neut # (Auto) Lymph # (Auto) Millard # (Auto) Eos # (Auto) Baso # (Auto) Immature Gran # (Auto) Platelet Estimate Sodium Potassium Chloride Carbon Dioxide Anion Gap BUN Creatinine Est Cr Clr Drug Dosing Est GFR ( Amer) Est GFR (Non-Af Amer) BUN/Creatinine Ratio Glucose POC Glucose 130 H Estimat Average Glucose Hemoglobin A1c Calcium Troponin I High Sens 261.6 H* 323.9 H* D 01/03/23 01/03/23 01/03/23 08:08 08:20 08:20 WBC 10.59 RBC 5.32 Hgb 14.3 Hct 45.0 MCV 84.6 MCH 26.9 MCHC 31.8 L RDW Std Deviation 43.1 RDW Coeff of Kristin 14.0 Plt Count 273 MPV 9.9 Immature Gran % (Auto) 0.4 Neut % (Auto) 76.4 Lymph % (Auto) 14.7 Millard % (Auto) 6.0 Eos % (Auto) 2.0 Baso % (Auto) 0.5 Neut # (Auto) 8.09 H Lymph # (Auto) 1.56 Millard # (Auto) 0.64 H Eos # (Auto) 0.21 Baso # (Auto) 0.05 Immature Gran # (Auto) 0.04 Platelet Estimate Normal Sodium Potassium Chloride Carbon Dioxide Anion Gap BUN Creatinine Est Cr Clr Drug Dosing Est GFR ( Amer) Est GFR (Non-Af Amer) BUN/Creatinine Ratio Glucose POC Glucose 120 H Estimat Average Glucose Cancelled Hemoglobin A1c Cancelled Calcium Troponin I High Sens 01/03/23 01/03/23 01/03/23 08:29 10:02 11:57 WBC RBC Hgb Hct MCV MCH MCHC RDW Std Deviation RDW Coeff of Kristin Plt Count MPV Immature Gran % (Auto) Neut % (Auto) Lymph % (Auto) Millard % (Auto) Eos % (Auto) Baso % (Auto) Neut # (Auto) Lymph # (Auto) Millard # (Auto) Eos # (Auto) Baso # (Auto) Immature Gran # (Auto) Platelet Estimate Sodium 140 Potassium 4.0 Chloride 109 H Carbon Dioxide 23 Anion Gap 8 BUN 6 Creatinine 0.58 L Est Cr Clr Drug Dosing 137.4 Est GFR ( Amer) 116.1 Est GFR (Non-Af Amer) 100.2 BUN/Creatinine Ratio 10.3 Glucose 119 H POC Glucose 172 H Estimat Average Glucose 137 Hemoglobin A1c 6.4 H Calcium 9.2 Troponin I High Sens 257.1 H* D Diagnostic Findings Echocardiogram 01/03/2023 The left ventricle is normal in size and overall function systolic and diastolic, EF 60-65% There is mild left hypertrophy There is mild aortic sclerosis with trace aortic insufficiency The interatrial septum was well visualized and appeared intact by color flow Doppler analysis as well as agitated saline contrast injection at rest and with Valsalva EKG 01/03/2023 Normal sinus rhythm with normal tracing at 74 bpm
--- NOTE | 2023-01-03 14:48 | Hospitalist Progress Note ---
Date of Service January 03, 2023 Assessment & Plan (1) Acute left hemiparesis: (2) Acute CVA (cerebrovascular accident): Plan: Patient is a 62-year-old female with past medical history of migraine, hyperlipidemia presents to the hospital with sharp frontal headache and weakness in left leg and arm On presentation, patient had mild weakness on left arm and leg with ataxia on left arm Patient declined TNK which was recommended by [facility] due to concern for vaginal bleed Following images were reviewed personally: CT scan of the head showed no acute changes. CT angiography of the head and neck were unremarkable and showed no evidence of vascular stenoses or anomalies. MRI of the brain showed a medium-size right parietotemporal stroke with other acute punctate strokes in bioccipital head regions and the right cerebellum. There was no evidence of hemorrhage. Echocardiogram results reviewed; EF of 60 to 65%, no evidence of atrial septal defect Currently on aspirin and statin. A1c of 6.4%; Continue permissive hypertension for at least 24 to 48 hours PT OT evaluation Telemetry monitoring. Patient may need further work-up as per cardiology including GILBERTO and event monitor. (3) Elevated troponin: Plan: - Initial set is elevated at 255.6 which trended up to 320 and down trended Echocardiogram as above Discussed with cardiology; patient will need further work-up including GILBERTO as outpatient and event monitor (4) Mass of pancreas: Plan: CT abdomen and pelvis showed 4.3 ill-defined pancreatic head mass resulting in upstream pancreatic duct dilation. Findings suspicious of adenocarcinoma Recommend multiphasic abdominal imaging study with CT or MRI to define pancreatic mass Recommend couple of weeks of stabilization from CHEMICAL PROCESSOR perspective and work-up will obtain MRCP. (5) Obesity, morbid, BMI 40.0-49.9: Plan: - Lifestyle modification, diet and weight loss need to be encouraged throughout hospital stay - BMI of 44.1 (6) Anxiety: Plan: - On clonazepam as needed (7) HLD (hyperlipidemia): Plan: -Added Lipitor 80 mg once daily DVT PPx: -heparin CODE: Full code Time spent evaluating patient, direct bedside care, chart review, placing orders, interpretation of diagnostic studies, discussion with consultants, patient, and family members, as well as other required patient management activities is 60 minutes. Please note the above document was generated using voice recognition software. It may contain grammatical, syntax or spelling errors. Any formal questions or concerns about the content, text or information contained within the body of this dictation should be directly addressed to the provider for clarification Admission and Anticipated Discharge Date Admission Date: January 02, 2023 Subjective Patient seen and examined at bedside. Patient immediate family members are also in the room. She is lying in the bed comfortably; reports headache. Physical Exam Physical Exam: Constitutional: WD/WN, vitals as above, NAD, sitting up in bed, pleasant, conversing easily Respiratory: normal respiratory effort, lungs clear to auscultation, no wheeze, rales, rhonchi. Normal insp/exp effort, no accessory muscle use Cardiovascular: RRR, no murmur, no edema Vessels: no JVD or carotid bruit Chest: normal inspection of chest Abdomen: normal bowel sounds, soft, nontender, no hepatosplenomegaly Musculoskeletal: no cyanosis or clubbing, extremities motor strength 5/5 Skin: no rashes, warm and dry normal turgor Neurologic: Awake alert oriented x3, cranial nerves II to XII intact. Strength of left upper extremity and lower extremity 4/5. Sensation intact throughout. Psychiatric: A+Ox3, euthymic affect Results & Data Results & Data Vital Signs (Past 12 Hours) Vital Signs Temp Pulse Pulse Resp BP Pulse Ox O2 Del Method 01/03/23 12:19 36.6 C 69 20 157/75 H 96 Room Air 01/03/23 08:27 36.8 C 72 16 138/84 100 Room Air 01/03/23 04:33 37 C 84 16 168/84 H 97 Room Air Laboratory Results Laboratory Results WBC 10.59 K/ul (4.8-10.8) 01/03/23 08:20 RBC 5.32 M/uL (4.20-5.40) 01/03/23 08:20 Hgb 14.3 g/dl (12.0-16.0) 01/03/23 08:20 POC Hgb 12.6 g/dl (12.0-16.0) 01/02/23 08:37 Hct 45.0 % (37.0-47.0) 01/03/23 08:20 POC Hct 37 % (37-47) 01/02/23 08:37 MCV 84.6 fL (80.0-100.0) 01/03/23 08:20 MCH 26.9 pg (25.0-34.0) 01/03/23 08:20 MCHC 31.8 g/dL (32.0-36.0) L 01/03/23 08:20 RDW Std Deviation 43.1 fL (36.4-46.3) 01/03/23 08:20 RDW Coeff of Kristin 14.0 % (11.5-14.5) 01/03/23 08:20 Plt Count 273 K/uL (130-400) 01/03/23 08:20 MPV 9.9 fL (9.4-12.4) 01/03/23 08:20 Immature Gran % (Auto) 0.4 % 01/03/23 08:20 Neut % (Auto) 76.4 % 01/03/23 08:20 Lymph % (Auto) 14.7 % 01/03/23 08:20 Giles % (Auto) 6.0 % 01/03/23 08:20 Eos % (Auto) 2.0 % 01/03/23 08:20 Baso % (Auto) 0.5 % 01/03/23 08:20 Neut # (Auto) 8.09 K/uL (1.40-6.50) H 01/03/23 08:20 Lymph # (Auto) 1.56 K/uL (1.2-3.4) 01/03/23 08:20 Giles # (Auto) 0.64 K/uL (0.11-0.59) H 01/03/23 08:20 Eos # (Auto) 0.21 K/uL (0-0.50) 01/03/23 08:20 Baso # (Auto) 0.05 K/uL (0-0.2) 01/03/23 08:20 Immature Gran # (Auto) 0.04 K/uL (0.01-0.20) 01/03/23 08:20 Platelet Estimate Normal (Normal) 01/03/23 08:20 PT 11.5 Seconds (9.0-12.0) 01/02/23 08:32 INR 1.1 (0.9-1.1) 01/02/23 08:32 APTT 26.1 Seconds (21.0-31.0) 01/02/23 08:32 PTT Ratio 0.9 01/02/23 08:32 POC Sodium 137 mmol/L (135-144) 01/02/23 08:37 Sodium 140 mmol/L (136-145) 01/03/23 08:29 POC Potassium 3.9 mmol/L (3.3-5.0) 01/02/23 08:37 Potassium 4.0 mmol/L (3.5-5.1) 01/03/23 08:29 POC Chloride 102 mmol/L (101-112) 01/02/23 08:37 Chloride 109 mmol/L (98-107) H 01/03/23 08:29 Carbon Dioxide 23 mmol/L (21-32) 01/03/23 08:29 POC Total CO2 22 mmol/L (24-31) L 01/02/23 08:37 Anion Gap 8 (3-11) 01/03/23 08:29 POC Anion Gap 18.0 mmol/L (16-25) 01/02/23 08:37 POC BUN 11 mg/dl (7-18) 01/02/23 08:37 BUN 6 mg/dl (6-23) 01/03/23 08:29 Creatinine 0.58 mg/dl (0.6-1.2) L 01/03/23 08:29 POC Creatinine 0.7 mg/dl (0.6-1.3) 01/02/23 08:37 Est Cr Clr Drug Dosing 137.4 ml/min 01/03/23 08:29 Est GFR ( Amer) 116.1 ml/min 01/03/23 08:29 Est GFR (Non-Af Amer) 100.2 ml/min 01/03/23 08:29 BUN/Creatinine Ratio 10.3 (10-20) 01/03/23 08:29 Glucose 119 mg/dl (70-99(Fasting)) H 01/03/23 08:29 POC Glucose 172 mg/dl (70-99) H 01/03/23 11:57 POC Glucose (other) 168 mg/dl (70-99) H 01/02/23 08:37 Estimat Average Glucose 137 mg/dl 01/03/23 10:02 Hemoglobin A1c 6.4 % (4.5-5.6) H 01/03/23 10:02 Calcium 9.2 mg/dl (8.6-10.3) 01/03/23 08:29 POC Ioniz Calcium Alex 1.13 mmol/l (1.12-1.32) 01/02/23 08:37 Magnesium 2.0 mg/dl (1.7-2.4) 01/02/23 08:32 Total Bilirubin 0.5 mg/dl (0.2-1.0) 01/02/23 08:32 AST 15 U/L (13-39) 01/02/23 08:32 ALT 13 U/L (7-52) 01/02/23 08:32 Alkaline Phosphatase 83 U/L (34-104) 01/02/23 08:32 Troponin I High Sens 257.1 pg/ml (0-14) H* D 01/03/23 08:29 Total Protein 7.0 gm/dl (6.0-8.3) 01/02/23 08:32 Albumin 3.9 gm/dl (3.4-5.0) 01/02/23 08:32 Globulin 3.1 gm/dl (2.5-4.0) 01/02/23 08:32 Albumin/Globulin Ratio 1.3 (0.9-2) 01/02/23 08:32 SARS-CoV-2 (PCR) NEGATIVE (Negative) 01/02/23 10:04 Influenza Type A (PCR) Negative (Neg) 01/02/23 10:04 Influenza Type B (PCR) Negative (Neg) 01/02/23 10:04 RSV (RT-PCR) Negative (Neg) 01/02/23 10:04 Impressions Chest X-Ray 01/02/23 08:17 XR chest 1V portable HISTORY: 62 years-old Female neuro deficit, acute stroke suspected acute strokelike symptoms COMPARISON: None TECHNIQUE: AP view of the chest FINDINGS: Cardiomediastinal and hilar silhouettes are within normal limits. Mild right hemidiaphragmatic elevation. No pneumothorax, pleural effusion, airspace consolidation or pulmonary edema. Degenerative changes of the shoulders and spine. Bilateral shoulder rotator cuff calcific tendinosis. IMPRESSION: No acute process. ACT 112: Negative or not required by law. The above report was generated using voice recognition software. It may contain grammatical, syntax or spelling errors. Electronically signed by: Cuco Morrell M.D. 01/02/2023 10:[address] 01/02/23 08:17 CT head/brain wo con, CT angio neck with con, CT angio head w con CLINICAL HISTORY: 62 years-old Female with neuro deficit, acute stroke suspected. Acute strokelike symptoms TECHNIQUE: Multiple axial CT images of the head were obtained without contrast. CTA head and neck also obtained following the intravenous administration of 108 mL Optiray 320. 3-D coronal and sagittal maps were obtained and submitted for review. All measurements were obtained according to NASCET criteria. A dose lowering technique was utilized adhering to the principles of ALARA. CT DOSE: 2073.47 mGy.cm COMPARISON: None. FINDINGS: CT HEAD: No acute intracranial hemorrhage, midline shift, intracranial mass, hydrocephalus, territorial ischemia or abnormal extra-axial collection. The calvarium is intact. Mild mucosal thickening of the paranasal sinuses. Mastoid air cells are clear. CTA: Dilated pulmonary artery may represent pulmonary arterial hypertension. Atherosclerosis of the thoracic aorta. Patency of the innominate and image subclavian arteries. Common and internal carotid arteries are patent. Mild atherosclerosis of the right carotid bulb. Anterior and middle cerebral arteries are patent. Vertebral arteries are codominant and patent. The basilar and posterior cerebral arteries are patent. Cerebral venous sinuses are patent. No aneurysm, dissection, high-grade stenosis or arterial occlusion identified. No abnormal intracranial enhancement. No pneumothorax. Groundglass densities in the lungs suggestive of atelectasis. Unremarkable soft tissues. Degenerative changes of the cervical spine. IMPRESSION: 1. No acute intracranial abnormality. 2. Unremarkable CTA of the head and neck. ACT 112: Negative or not required by law. The above report was generated using voice recognition software. It may contain grammatical, syntax or spelling errors. Electronically signed by: Cuco Morrell M.D. 01/02/2023 8:53 AM Head CTA 01/02/23 08:17 CT head/brain wo con, CT angio neck with con, CT angio head w con CLINICAL HISTORY: 62 years-old Female with neuro deficit, acute stroke suspected. Acute strokelike symptoms TECHNIQUE: Multiple axial CT images of the head were obtained without contrast. CTA head and neck also obtained following the intravenous administration of 108 mL Optiray 320. 3-D coronal and sagittal maps were obtained and submitted for review. All measurements were obtained according to NASCET criteria. A dose lowering technique was utilized adhering to the principles of ALARA. CT DOSE: 2073.47 mGy.cm COMPARISON: None. FINDINGS: CT HEAD: No acute intracranial hemorrhage, midline shift, intracranial mass, hydrocephalus, territorial ischemia or abnormal extra-axial collection. The calvarium is intact. Mild mucosal thickening of the paranasal sinuses. Mastoid air cells are clear. CTA: Dilated pulmonary artery may represent pulmonary arterial hypertension. Atherosclerosis of the thoracic aorta. Patency of the innominate and image subclavian arteries. Common and internal carotid arteries are patent. Mild atherosclerosis of the right carotid bulb. Anterior and middle cerebral arteries are patent. Vertebral arteries are codominant and patent. The basilar and posterior cerebral arteries are patent. Cerebral venous sinuses are patent. No aneurysm, dissection, high-grade stenosis or arterial occlusion identified. No abnormal intracranial enhancement. No pneumothorax. Groundglass densities in the lungs suggestive of atelectasis. Unremarkable soft tissues. Degenerative changes of the cervical spine. IMPRESSION: 1. No acute intracranial abnormality. 2. Unremarkable CTA of the head and neck. ACT 112: Negative or not required by law. The above report was generated using voice recognition software. It may contain grammatical, syntax or spelling errors. Electronically signed by: Cuco Morrell M.D. 01/02/2023 8:53 AM Neck CTA 01/02/23 08:17 CT head/brain wo con, CT angio neck with con, CT angio head w con CLINICAL HISTORY: 62 years-old Female with neuro deficit, acute stroke suspected. Acute strokelike symptoms TECHNIQUE: Multiple axial CT images of the head were obtained without contrast. CTA head and neck also obtained following the intravenous administration of 108 mL Optiray 320. 3-D coronal and sagittal maps were obtained and submitted for review. All measurements were obtained according to NASCET criteria. A dose lowering technique was utilized adhering to the principles of ALARA. CT DOSE: 2073.47 mGy.cm COMPARISON: None. FINDINGS: CT HEAD: No acute intracranial hemorrhage, midline shift, intracranial mass, hydrocephalus, territorial ischemia or abnormal extra-axial collection. The calvarium is intact. Mild mucosal thickening of the paranasal sinuses. Mastoid air cells are clear. CTA: Dilated pulmonary artery may represent pulmonary arterial hypertension. Atherosclerosis of the thoracic aorta. Patency of the innominate and image subclavian arteries. Common and internal carotid arteries are patent. Mild atherosclerosis of the right carotid bulb. Anterior and middle cerebral arteries are patent. Vertebral arteries are codominant and patent. The basilar and posterior cerebral arteries are patent. Cerebral venous sinuses are patent. No aneurysm, dissection, high-grade stenosis or arterial occlusion identified. No abnormal intracranial enhancement. No pneumothorax. Groundglass densities in the lungs suggestive of atelectasis. Unremarkable soft tissues. Degenerative changes of the cervical spine. IMPRESSION: 1. No acute intracranial abnormality. 2. Unremarkable CTA of the head and neck. ACT 112: Negative or not required by law. The above report was generated using voice recognition software. It may contain grammatical, syntax or spelling errors. Electronically signed by: Cuco Morrell M.D. 01/02/2023 8:53 AM Gallbladder Ultrasound 01/02/23 09:34 ULTRASOUND RIGHT UPPER QUADRANT ABDOMEN CLINICAL HISTORY: Postprandial right upper quadrant abdominal pain. COMPARISON STUDY: No priors. TECHNIQUE: Real-time, grayscale, and color flow sonography of the right upper quadrant of the abdomen was performed. Images are reviewed in the transverse and longitudinal planes. FINDINGS: Liver: The liver is mildly enlarged and demonstrates heterogeneously increased echotexture indicating steatosis. There is no intrahepatic biliary ductal dilatation. The main portal vein is patent. Gallbladder: The gallbladder is mildly distended and contains large shadowing gallstones as well as biliary sludge. There is no gallbladder wall thickening or pericholecystic fluid. A sonographic Nunez's sign is reportedly absent. The common bile duct measures up to 0.5 cm in diameter. Pancreas: There is an approximately 5 cm indeterminate hypoechoic density adjacent to pancreatic head. Right kidney: Survey images of the right kidney demonstrate normal size and e chotexture. There is no hydronephrosis. Ascites: None. IMPRESSION: 1. There is an approximately 5 cm indeterminant hypoechoic density adjacent to the pancreatic head. Correlation with a contrast-enhanced abdominal CT scan is recommended for further assessment. 2. Cholelithiasis and biliary sludge without sonographic evidence of acute cholecystitis. 3. Hepatomegaly and hepatic steatosis. ACT 112: Negative or not required by law. Electronically signed by: Celestine Gómez M.D. 01/02/2023 12:03 PM Pelvis Ultrasound 01/02/23 11:02 US pelvic complete HISTORY: 62 years-old Female vaginal bleeding postmenopausal acute postmenopausal vaginal bleeding COMPARISON: None TECHNIQUE: Multiple real-time sonographic images of the deep pelvic structures were obtained transabdominally assessing grayscale appearance, color and spectral flow. FINDINGS: Anteflexed uterus measures 8.9 x 3.7 x 4.8 cm. No myometrial mass lesion. Homogeneous echogenic thickening of the endometrium, 1.6 cm. Ovaries are not diagnostically visualized. Limited study secondary to patient body habitus. IMPRESSION: Pathologic thickening of the postmenopausal endometrium. Correlation with tissue sampling recommended. ACT 112: Negative or not required by law. The above report was generated using voice recognition software. It may contain grammatical, syntax or spelling errors. Electronically signed by: Cuco Morrell M.D. 01/02/2023 12:19 PM Abdomen/Pelvis CT 01/02/23 12:[address] WITHOUT CONTRAST CT DOSE: 1493.32 mGy.cm HISTORY: Acute right upper quadrant abdominal pain Eval Pancreatic mass, vaginal bleeding TECHNIQUE: Multiaxial CT images of the abdomen and pelvis were performed without contrast. A dose lowering technique was utilized adhering to the principles of ALARA. COMPARISON STUDY: Abdominal ultrasound of same day FINDINGS: No acute process of the imaged lower chest. Limited study without the use of contrast. Ptosis or pneumoperitoneum. Unremarkable unenhanced spleen, gallbladder and adrenal glands. The patient's cholelithiasis is not identified by ultrasound. Hepatomegaly with hepatic steatosis. No biliary ductal dilation. Mild pancreatic ductal dilation measures up to 6 mm. Ill-defined mass of the pancreatic head is confirmed measuring 4.3 x 3.6 cm. Mild peripancreatic stranding. Subcentimeter peripancreatic and paradise hepatic lymph nodes. The anterior margin of this lesion abuts the adjacent superior mesenteric vein and also abuts the adjacent duodenum which penetrates mild wall thickening. Contrast noted within the renal collecting systems and urinary bladder. No hydronephrosis. Heterogeneous uterus. Atherosclerosis of the aorta. Tiny hiatal hernia. Moderate rectal fecal retention. Colonic diverticulosis. No CT evidence of acute appendicitis. Small fat filled umbilical hernia. No acute fracture. IMPRESSION: 1. Confirmation of the 4.3 cm ill-defined pancreatic head mass resulting in upstream pancreatic ductal dilation. Evaluation is limited without the use of IV contrast, however the imaging characteristics are suspicious for adenocarcinoma. GI consultation with endoscopy and tissue sampling recommended. 2. The pancreatic mass abuts and possibly infiltrates the adjacent duodenum . No obstruction. 3. No evidence of metastatic disease. 4. Hepatic steatosis. ACT 112: Negative or not required by law. The above report was generated using voice recognition software. It may contain grammatical, syntax or spelling errors. Electronically signed by: Cuco Morrell M.D. 01/02/2023 1:35 PM Brain MRI 01/02/23 13:57 MR brain wo con CLINICAL HISTORY: CVA r/o, Left sided weakness, pancreatic mass TECHNIQUE: Multiplanar and multisequence MR images of the brain were obtained without intravenous contrast. Comparison: Comparison is made to CT head 01/02/2023 FINDINGS: Exam is limited by patient motion. There is prominent restricted diffusion in the right parietotemporal region. A few punctate foci of restricted diffusion are also seen in the bilateral occipital lobes and right cerebellum. Matter edema is seen in the corresponding right parietotemporal region. The ventricular system is normal in appearance. No mass is seen. There is no mass effect or midline shift. Evaluation for hemorrhage is highly limited, no leighann hemorrhage is seen. No extra axial fluid collections are seen. The corpus callosum, pituitary gland, and cerebellar tonsils appear grossly unremarkable. Flow voids of the major intracranial arterial vessels are identified. The imaged portions of the paranasal sinuses, mastoid air cells, and orbits are unremarkable. IMPRESSION: Findings are compatible with acute infarct in the right parietal temporal region as well as a few punctate occipital and cerebellar foci of infarct. Evaluation for hemorrhage is highly limited by patient motion however no leighann hemorrhage is seen. ACT 112: Negative or not required by law. Electronically signed by: Janak Joy M.D. 01/02/2023 4:42 PM
[2023-01-03] MEDS: HEPARIN SOD 5,000 UNIT/0.5 ML VIAL SQ SCH (21:12)
[2023-01-04] MEDS: ACETAMINOPHEN 325 MG TAB PO PRN (00:27)
[2023-01-04] MEDS ORDERED: ONDANSETRON INJ 2 MG/ML 2 ML VIAL IV PRN (01:39)
[2023-01-04] MEDS ORDERED: ONDANSETRON INJ 2 MG/ML 2 ML VIAL ONE (01:43)
[2023-01-04] MEDS ORDERED: oxyCODONE HCL IR 5 MG TAB (IMMEDIATE RELEASE) PO STA (01:56)
[2023-01-04 05:58] LABS: Potassium 4.1 mmol/L (3.5-5.1)
[2023-01-04 06:04] LABS: BUN Creatinine Ratio 9.5 (10-20); Chol HDL Ratio 2.7 (0-5); Creatinine Clr Calc Pharmacy 126.5 ml/min; Est GFR (Non-African American) 97.5 ml/min
--- NOTE | 2023-01-04 06:05 | Electrocardiogram Report ---
Test Reason : Blood Pressure : / mmHG Vent. Rate : 067 BPM Atrial Rate : 067 BPM P-R Int : 166 ms QRS Dur : 082 ms QT Int : 430 ms P-R-T Axes : 042 007 050 degrees QTc Int : 454 ms Normal sinus rhythm Normal ECG No previous ECGs available Confirmed by Rolando Medrano ([id number]) on 01/04/2023 6:04:52 AM Referred By: REFERRED SELF Confirmed By:Rolando Medrano
[2023-01-04] MEDS: HEPARIN SOD 5,000 UNIT/0.5 ML VIAL SQ SCH ×3 (06:35→21:12)
[2023-01-04 07:23] LABS: Basophils # (auto) 0.06 K/uL (0-0.2); Basophils % (auto) 0.5 %; Eosinophils % (auto) 3.1 %; Hematocrit (blood only) 39.7 % (37.0-47.0); Hemoglobin 12.8 g/dl (12.0-16.0); Immature Granulocytes # (auto) 0.03 K/uL (0.01-0.20); Immature Granulocytes % (auto) 0.2 %; Lymphocytes # (auto) 1.84 K/uL (1.2-3.4); Lymphocytes % (auto) 14.3 %; Mean Corpuscular Hemoglobin 26.4 pg (25.0-34.0); Mean Corpuscular Hgb Conc 32.2 g/dL (32.0-36.0); Mean Platelet Volume 9.7 fL (9.4-12.4); Monocytes # (auto) 0.93 K/uL (0.11-0.59); Monocytes % (auto) 7.2 %; Neutrophils # (auto) 9.57 K/uL (1.40-6.50); Neutrophils % (auto) 74.7 %; Platelet Count 304 K/uL (130-400); RDW Coefficient of Variation 13.9 % (11.5-14.5); RDW Standard Deviation 41.1 fL (36.4-46.3); Red Blood Count 4.84 M/uL (4.20-5.40); White Blood Count 12.83 K/ul (4.8-10.8)
--- NOTE | 2023-01-04 07:28 | Electrocardiogram Report ---
Test Reason : Blood Pressure : / mmHG Vent. Rate : 074 BPM Atrial Rate : 074 BPM P-R Int : 154 ms QRS Dur : 086 ms QT Int : 398 ms P-R-T Axes : 046 003 042 degrees QTc Int : 441 ms Normal sinus rhythm Normal ECG When compared with ECG of 02-JAN-2023 08:33, No significant change Confirmed by Rolando Medrano ([id number]) on 01/04/2023 7:28:30 AM Referred By: REFERRED SELF Confirmed By:Rolando Medrano
[2023-01-04] MEDS: clonazePAM 0.5 MG TAB PO PRN (09:23)
--- NOTE | 2023-01-04 09:38 | Neurology Progress Note ---
Date of Service January 04, 2023 Assessment & Plan (1) Acute CVA (cerebrovascular accident): (2) Acute left hemiparesis: (3) Mass of pancreas: (4) Anxiety: Plan The patient has suffered a medium-sized right middle cerebral artery distribution acute stroke resulting in left hemiparesis. However, in addition, there are punctate acute strokes in both occipital lobes and the right cerebellum. These strokes, plus unremarkable CT angiography of the head and neck point to a cardiac source (embolic). However, echocardiogram was unremarkable with no obvious source of embolus. Other proximal vessels such as the aortic arch could be a source of embolus. She did not have any event that would suggest global perfusion or hypoxia Although she has some dyslipidemia, she does not have other stroke risk factors such as hypertension, cigarette smoking, or diabetes ( however glucose has been mildly elevated). Hemoglobin A1c was 6.4 The patient had considerable anxiety and emotionally lability the last time I saw her but this is markedly improved today. The patient has a pancreatic mass and is now followed by Oncology. There is no evidence of metastases Recommendations: 1. Continue 81 milligram aspirin daily 2. Physical, occupational and speech therapy consult, increase activity as able. She may be a good rehabilitation hospital candidate. 3. Could discuss with Cardiology but may consider imaging of the aortic arch to evaluate for embolic source there Overall, I spent a total of 35 minutes with this case including review of records, review of MRI films, direct evaluation the patient at bedside, report generation, and discussion of the case with the patient and RN at bedside, and Dr. Byrne, including differential diagnosis and treatment options. Admission and Anticipated Discharge Date Admission Date: January 02, 2023 Subjective Patient feels about the same today as yesterday with her left-sided weakness. She is a little less emotionally labile today but still gets anxious and discourage somewhat easily. Although she did have a little bit of headache yesterday, she does not have a headache this morning. Echocardiogram was largely unremarkable with no evidence for a source of embolus. Chem profile was unremarkable except for glucose of 120 and a CBC was unremarkable. Triglycerides were 107 total cholesterol 130. she was initiated on atorvastatin 80 milligrams daily. Results & Data Vital Signs (Past 12 Hours) Vital Signs Temp Pulse Pulse Resp BP Pulse Ox O2 Del Method 01/04/23 08:20 36.5 C 72 19 146/89 H 96 Room Air 01/04/23 07:26 68 01/04/23 03:00 36.8 C 77 18 165/87 H 99 Room Air 01/04/23 00:00 70 01/03/23 23:00 36.7 C 80 18 163/88 H 100 Room Air Exam (Neuro) Physical Exam: she is awake and alert. Speech is without aphasia or dysarthria. Mood is reasonable and affect is appropriate although she does tend to get a little anxious at times ( not nearly as much as yesterday). Extraocular muscles are intact without nystagmus. There may be a slight asymmetry with the corner of the mouth on the left but the mouth moves quite well and symmetrically voluntarily with smile. Coordination is normal in the right upper extremity and there is some clumsiness in the left upper extremity. The left arm and leg were 4/5 diffusely compared to the right which are 5/5. PG Care Time/CCT Total # of Minutes Spent Total Time Spent with Patient: Total time spent is greater than 50% in coordination of care (as documented) at patient's floor/unit and/or counseling patient: Coding Level of Care Code 69519 SUB INP/OBS CARE 2MIN Diagnoses Acute CVA (cerebrovascular accident) I63.9 Acute left hemiparesis G81.94 Mass of pancreas K86.89 Anxiety F41.9
[2023-01-04] MEDS ORDERED: GADOBUTROL 65ML VIAL IV ONE (12:43)
--- NOTE | 2023-01-04 13:09 | Hospitalist Progress Note ---
Date of Service January 04, 2023 Assessment & Plan (1) Acute left hemiparesis: (2) Acute CVA (cerebrovascular accident): Plan: Patient is a 62-year-old female with past medical history of migraine, hyperlipidemia presents to the hospital with sharp frontal headache and weakness in left leg and arm On presentation, patient had mild weakness on left arm and leg with ataxia on left arm Patient declined TNK which was recommended by [facility] due to concern for vaginal bleed Following images were reviewed personally: CT scan of the head showed no acute changes. CT angiography of the head and neck were unremarkable and showed no evidence of vascular stenoses or anomalies. MRI of the brain showed a medium-size right parietotemporal stroke with other acute punctate strokes in bioccipital head regions and the right cerebellum. There was no evidence of hemorrhage. Echocardiogram results reviewed; EF of 60 to 65%, no evidence of atrial septal defect Currently on aspirin and statin. A1c of 6.4%; Completed permissive hypertension.. We will start her on losartan 50 mg twice daily Continue PT OT Telemetry monitoring. Patient may need further work-up as per cardiology including GILBERTO and event monitor. Continue on Lipitor (3) Elevated troponin: Plan: - Initial set is elevated at 255.6 which trended up to 320 and down trended Echocardiogram as above Discussed with cardiology; patient will need further work-up including GILBERTO as outpatient and event monitor (4) Mass of pancreas: Plan: CT abdomen and pelvis showed 4.3 ill-defined pancreatic head mass resulting in upstream pancreatic duct dilation. Findings suspicious of adenocarcinoma Recommend multiphasic abdominal imaging study with CT or MRI to define pancreatic mass Recommend couple of weeks of stabilization from [facility] RN perspective and work-up will obtain MRI liver with and without contrast with focus on pancreas (5) Obesity, morbid, BMI 40.0-49.9: Plan: - Lifestyle modification, diet and weight loss need to be encouraged throughout hospital stay - BMI of 44.1 (6) Anxiety: Plan: - On clonazepam as needed (7) HLD (hyperlipidemia): Plan: -Lipid profile reviewed;LDL of 61. TG of 107 Added Lipitor 80 mg once daily DVT PPx: -heparin CODE: Full code Time spent evaluating patient, direct bedside care, chart review, placing order s, interpretation of diagnostic studies, discussion with consultants, patient, and family members, as well as other required patient management activities is 60 minutes. Please note the above document was generated using voice recognition software. It may contain grammatical, syntax or spelling errors. Any formal questions or concerns about the content, text or information contained within the body of this dictation should be directly addressed to the provider for clarification Admission and Anticipated Discharge Date Admission Date: January 02, 2023 Subjective Patient seen and examined at bedside. She is comfortably lying in the bed; reports headache. Reports that her weakness is similar to presentation Review of Systems Review of Systems: All systems reviewed & are unremarkable except as noted in Subjective Physical Exam Physical Exam: Constitutional: WD/WN, vitals as above, NAD, sitting up in bed, pleasant, conversing easily Respiratory: normal respiratory effort, lungs clear to auscultation, no wheeze, rales, rhonchi. Normal insp/exp effort, no accessory muscle use Cardiovascular: RRR, no murmur, no edema Vessels: no JVD or carotid bruit Chest: normal inspection of chest Abdomen: normal bowel sounds, soft, nontender, no hepatosplenomegaly Musculoskeletal: no cyanosis or clubbing, extremities motor strength 5/5 Skin: no rashes, warm and dry normal turgor Neurologic: Awake alert oriented x3, cranial nerves II to XII intact. Strength of left upper extremity and lower extremity 4/5. Sensation intact throughout. Psychiatric: A+Ox3, euthymic affect Results & Data Results & Data Vital Signs (Past 12 Hours) Vital Signs Temp Pulse Pulse Resp BP Pulse Ox O2 Del Method 01/04/23 08:20 36.5 C 72 19 146/89 H 96 Room Air 01/04/23 07:26 68 01/04/23 03:00 36.8 C 77 18 165/87 H 99 Room Air Laboratory Results Laboratory Results WBC 12.83 K/ul (4.8-10.8) H 01/04/23 06:44 RBC 4.84 M/uL (4.20-5.40) 01/04/23 06:44 Hgb 12.8 g/dl (12.0-16.0) 01/04/23 06:44 POC Hgb 12.6 g/dl (12.0-16.0) 01/02/23 08:37 Hct 39.7 % (37.0-47.0) 01/04/23 06:44 POC Hct 37 % (37-47) 01/02/23 08:37 MCV 82.0 fL (80.0-100.0) 01/04/23 06:44 MCH 26.4 pg (25.0-34.0) 01/04/23 06:44 MCHC 32.2 g/dL (32.0-36.0) 01/04/23 06:44 RDW Std Deviation 41.1 fL (36.4-46.3) 01/04/23 06:44 RDW Coeff of Kristin 13.9 % (11.5-14.5) 01/04/23 06:44 Plt Count 304 K/uL (130-400) 01/04/23 06:44 MPV 9.7 fL (9.4-12.4) 01/04/23 06:44 Immature Gran % (Auto) 0.2 % 01/04/23 06:44 Neut % (Auto) 74.7 % 01/04/23 06:44 Lymph % (Auto) 14.3 % 01/04/23 06:44 [place] % (Auto) 7.2 % 01/04/23 06:44 Eos % (Auto) 3.1 % 01/04/23 06:44 Baso % (Auto) 0.5 % 01/04/23 06:44 Neut # (Auto) 9.57 K/uL (1.40-6.50) H 01/04/23 06:44 Lymph # (Auto) 1.84 K/uL (1.2-3.4) 01/04/23 06:44 [place] # (Auto) 0.93 K/uL (0.11-0.59) H 01/04/23 06:44 Eos # (Auto) 0.40 K/uL (0-0.50) 01/04/23 06:44 Baso # (Auto) 0.06 K/uL (0-0.2) 01/04/23 06:44 Immature Gran # (Auto) 0.03 K/uL (0.01-0.20) 01/04/23 06:44 Absolute Nucleated RBC Cancelled 01/04/23 04:44 Nucleated RBC % (auto) Cancelled 01/04/23 04:44 Neutrophils % (Manual) Cancelled 01/04/23 04:44 Band Neutrophils % Cancelled 01/04/23 04:44 Lymphocytes % (Manual) Cancelled 01/04/23 04:44 Prolymphocyte % Cancelled 01/04/23 04:44 Reactive Lymphs % (Man) Cancelled 01/04/23 04:44 Monocytes % (Manual) Cancelled 01/04/23 04:44 Eosinophils % (Manual) Cancelled 01/04/23 04:44 Basophils % (Manual) Cancelled 01/04/23 04:44 Metamyelocytes % (Man) Cancelled 01/04/23 04:44 Myelocytes % (Man) Cancelled 01/04/23 04:44 Promyelocytes % (Man) Cancelled 01/04/23 04:44 Blast Cells % (Manual) Cancelled 01/04/23 04:44 Plasma Cell % (Manual) Cancelled 01/04/23 04:44 Other Cells % Cancelled 01/04/23 04:44 Nucleated RBC % Cancelled 01/04/23 04:44 Neutrophils # (Manual) Cancelled 01/04/23 04:44 Band Neutrophils # Cancelled 01/04/23 04:44 Total Absolute Neuts Cancelled 01/04/23 04:44 Lymphocytes # (Manual) Cancelled 01/04/23 04:44 Prolymphocyte # Cancelled 01/04/23 04:44 Reactive Lymphs # Cancelled 01/04/23 04:44 Total Abs Lymphocytes Cancelled 01/04/23 04:44 Monocytes # (Manual) Cancelled 01/04/23 04:44 Eosinophils # (Manual) Cancelled 01/04/23 04:44 Basophils # (Manual) Cancelled 01/04/23 04:44 Metamyelocytes # (Man) Cancelled 01/04/23 04:44 Myelocytes # (Manual) Cancelled 01/04/23 04:44 Promyelocytes # (Man) Cancelled 01/04/23 04:44 Blast Cells # (Man) Cancelled 01/04/23 04:44 Plasma Cell # (Manual) Cancelled 01/04/23 04:44 Other Cells # Cancelled 01/04/23 04:44 Nucleated RBCs # (Man) Cancelled 01/04/23 04:44 Hypersegmented Neuts Cancelled 01/04/23 04:44 Hyposegmented Neuts Cancelled 01/04/23 04:44 Hypogranular Neuts Cancelled 01/04/23 04:44 Large Granular Lymphs Cancelled 01/04/23 04:44 # Lrg Granular Lymphs Cancelled 01/04/23 04:44 Hairy Cells Cancelled 01/04/23 04:44 Smudge Cells Cancelled 01/04/23 04:44 Toxic Granulation Cancelled 01/04/23 04:44 Toxic Vacuolation Cancelled 01/04/23 04:44 Dohle Bodies Cancelled 01/04/23 04:44 Robe Rods Cancelled 01/04/23 04:44 Platelet Estimate Cancelled 01/04/23 04:44 Hypogranular Platelets Cancelled 01/04/23 04:44 Giant Platelets Cancelled 01/04/23 04:44 Platelet Satelliting Cancelled 01/04/23 04:44 RBC Morphology Cancelled 01/04/23 04:44 Polychromasia Cancelled 01/04/23 04:44 Hypochromasia Cancelled 01/04/23 04:44 Poikilocytosis Cancelled 01/04/23 04:44 Basophilic Stippling Cancelled 01/04/23 04:44 Anisocytosis Cancelled 01/04/23 04:44 Microcytosis Cancelled 01/04/23 04:44 Macrocytosis Cancelled 01/04/23 04:44 Spherocytes Cancelled 01/04/23 04:44 Pappenheimer Bodies Cancelled 01/04/23 04:44 Sickle Cells Cancelled 01/04/23 04:44 Target Cells Cancelled 01/04/23 04:44 Tear Drop Cells Cancelled 01/04/23 04:44 Ovalocytes Cancelled 01/04/23 04:44 Stomatocytes Cancelled 01/04/23 04:44 Douglas-Chaffee Bodies Cancelled 01/04/23 04:44 Echinocytes Cancelled 01/04/23 04:44 Acanthocytes (Spur) Cancelled 01/04/23 04:44 Rouleaux Cancelled 01/04/23 04:44 RBC Agglutinates Cancelled 01/04/23 04:44 Schistocytes Cancelled 01/04/23 04:44 Sezary Cell Cancelled 01/04/23 04:44 PT 11.5 Seconds (9.0-12.0) 01/02/23 08:32 INR 1.1 (0.9-1.1) 01/02/23 08:32 APTT 26.1 Seconds (21.0-31.0) 01/02/23 08:32 PTT Ratio 0.9 01/02/23 08:32 POC Sodium 137 mmol/L (135-144) 01/02/23 08:37 Sodium 139 mmol/L (136-145) 01/04/23 04:44 POC Potassium 3.9 mmol/L (3.3-5.0) 01/02/23 08:37 Potassium 4.1 mmol/L (3.5-5.1) 01/04/23 04:44 POC Chloride 102 mmol/L (101-112) 01/02/23 08:37 Chloride 108 mmol/L (98-107) H 01/04/23 04:44 Carbon Dioxide 22 mmol/L (21-32) 01/04/23 04:44 POC Total CO2 22 mmol/L (24-31) L 01/02/23 08:37 Anion Gap 9 (3-11) 01/04/23 04:44 POC Anion Gap 18.0 mmol/L (16-25) 01/02/23 08:37 POC BUN 11 mg/dl (7-18) 01/02/23 08:37 BUN 6 mg/dl (6-23) 01/04/23 04:44 Creatinine 0.63 mg/dl (0.6-1.2) 01/04/23 04:44 POC Creatinine 0.7 mg/dl (0.6-1.3) 01/02/23 08:37 Est Cr Clr Drug Dosing 126.5 ml/min 01/04/23 04:44 Est GFR ( Amer) 113.0 ml/min 01/04/23 04:44 Est GFR (Non-Af Amer) 97.5 ml/min 01/04/23 04:44 BUN/Creatinine Ratio 9.5 (10-20) L 01/04/23 04:44 Glucose 120 mg/dl (70-99(Fasting)) H 01/04/23 04:44 POC Glucose 115 mg/dl (70-99) H 01/04/23 07:59 POC Glucose (other) 168 mg/dl (70-99) H 01/02/23 08:37 Estimat Average Glucose 137 mg/dl 01/03/23 10:02 Hemoglobin A1c 6.4 % (4.5-5.6) H 01/03/23 10:02 Calcium 9.0 mg/dl (8.6-10.3) 01/04/23 04:44 POC Ioniz Calcium Alex 1.13 mmol/l (1.12-1.32) 01/02/23 08:37 Magnesium 2.0 mg/dl (1.7-2.4) 01/02/23 08:32 Total Bilirubin 0.5 mg/dl (0.2-1.0) 01/02/23 08:32 AST 15 U/L (13-39) 01/02/23 08:32 ALT 13 U/L (7-52) 01/02/23 08:32 Alkaline Phosphatase 83 U/L (34-104) 01/02/23 08:32 Troponin I High Sens 257.1 pg/ml (0-14) H* D 01/03/23 08:29 Total Protein 7.0 gm/dl (6.0-8.3) 01/02/23 08:32 Albumin 3.9 gm/dl (3.4-5.0) 01/02/23 08:32 Globulin 3.1 gm/dl (2.5-4.0) 01/02/23 08:32 Albumin/Globulin Ratio 1.3 (0.9-2) 01/02/23 08:32 Triglycerides 107 mg/dl (0-150) 01/04/23 04:44 Cholesterol 130 mg/dl (0-200) 01/04/23 04:44 LDL Cholesterol, Calc 61 mg/dl 01/04/23 04:44 VLDL Cholesterol, Calc 21 mg/dl (0-30) 01/04/23 04:44 HDL Cholesterol 48 mg/dl 01/04/23 04:44 Cholesterol/HDL Ratio 2.7 (0-5) 01/04/23 04:44 SARS-CoV-2 (PCR) NEGATIVE (Negative) 01/02/23 10:04 Influenza Type A (PCR) Negative (Neg) 01/02/23 10:04 Influenza Type B (PCR) Negative (Neg) 01/02/23 10:04 RSV (RT-PCR) Negative (Neg) 01/02/23 10:04 Blood Parasites ID Cancelled 01/04/23 04:44 Impressions Chest X-Ray 01/02/23 08:17 XR chest 1V portable HISTORY: 62 years-old Female neuro deficit, acute stroke suspected acute strokelike symptoms COMPARISON: None TECHNIQUE: AP view of the chest FINDINGS: Cardiomediastinal and hilar silhouettes are within normal limits. Mild right hemidiaphragmatic elevation. No pneumothorax, pleural effusion, airspace consolidation or pulmonary edema. Degenerative changes of the shoulders and spine. Bilateral shoulder rotator cuff calcific tendinosis. IMPRESSION: No acute process. ACT 112: Negative or not required by law. The above report was generated using voice recognition software. It may contain grammatical, syntax or spelling errors. Electronically signed by: Cuco Morrell M.D. 01/02/2023 10:27 AM Head CTA 01/02/23 08:17 CT head/brain wo con, CT angio neck with con, CT angio head w con CLINICAL HISTORY: 62 years-old Female with neuro deficit, acute stroke suspected. Acute strokelike symptoms TECHNIQUE: Multiple axial CT images of the head were obtained without contrast. CTA head and neck also obtained following the intravenous administration of 108 mL Optiray 320. 3-D coronal and sagittal maps were obtained and submitted for review. All measurements were obtained according to NASCET criteria. A dose lowering technique was utilized adhering to the principles of ALARA. CT DOSE: 2073.47 mGy.cm COMPARISON: None. FINDINGS: CT HEAD: No acute intracranial hemorrhage, midline shift, intracranial mass, hydrocephalus, territorial ischemia or abnormal extra-axial collection. The calvarium is intact. Mild mucosal thickening of the paranasal sinuses. Mastoid air cells are clear. CTA: Dilated pulmonary artery may represent pulmonary arterial hypertension. Atherosclerosis of the thoracic aorta. Patency of the innominate and image subclavian arteries. Common and internal carotid arteries are patent. Mild atherosclerosis of the right carotid bulb. Anterior and middle cerebral arteries are patent. Vertebral arteries are codominant and patent. The basilar and posterior cerebral arteries are patent. Cerebral venous sinuses are patent. No aneurysm, dissection, high-grade stenosis or arterial occlusion identified. No abnormal intracranial enhancement. No pneumothorax. Groundglass densities in the lungs suggestive of atelectasis. Unremarkable soft tissues. Degenerative changes of the cervical spine. IMPRESSION: 1. No acute intracranial abnormality. 2. Unremarkable CTA of the head and neck. ACT 112: Negative or not required by law. The above report was generated using voice recognition software. It may contain grammatical, syntax or spelling errors. Electronically signed by: Cuco Morrell M.D. 01/02/2023 8:53 AM Neck CTA 01/02/23 08:17 CT head/brain wo con, CT angio neck with con, CT angio head w con CLINICAL HISTORY: 62 years-old Female with neuro deficit, acute stroke suspected. Acute strokelike symptoms TECHNIQUE: Multiple axial CT images of the head were obtained without contrast. CTA head and neck also obtained following the intravenous administration of 108 mL Optiray 320. 3-D coronal and sagittal maps were obtained and submitted for review. All measurements were obtained according to NASCET criteria. A dose lowering technique was utilized adhering to the principles of ALARA. CT DOSE: 2073.47 mGy.cm COMPARISON: None. FINDINGS: CT HEAD: No acute intracranial hemorrhage, midline shift, intracranial mass, hydrocephalus, territorial ischemia or abnormal extra-axial collection. The calvarium is intact. Mild mucosal thickening of the paranasal sinuses. Mastoid air cells are clear. CTA: Dilated pulmonary artery may represent pulmonary arterial hypertension. Atherosclerosis of the thoracic aorta. Patency of the innominate and image subclavian arteries. Common and internal carotid arteries are patent. Mild atherosclerosis of the right carotid bulb. Anterior and middle cerebral arteries are patent. Vertebral arteries are codominant and patent. The basilar and posterior cerebral arteries are patent. Cerebral venous sinuses are patent. No aneurysm, dissection, high-grade stenosis or arterial occlusion identified. No abnormal intracranial enhancement. No pneumothorax. Groundglass densities in the lungs suggestive of atelectasis. Unremarkable soft tissues. Degenerative changes of the cervical spine. IMPRESSION: 1. No acute intracranial abnormality. 2. Unremarkable CTA of the head and neck. ACT 112: Negative or not required by law. The above report was generated using voice recognition software. It may contain grammatical, syntax or spelling errors. Electronically signed by: Cuoc Morrell M.D. 01/02/2023 8:53 AM Gallbladder Ultrasound 01/02/23 09:34 ULTRASOUND RIGHT UPPER QUADRANT ABDOMEN CLINICAL HISTORY: Postprandial right upper quadrant abdominal pain. COMPARISON STUDY: No priors. TECHNIQUE: Real-time, grayscale, and color flow sonography of the right upper quadrant of the abdomen was performed. Images are reviewed in the transverse and longitudinal planes. FINDINGS: Liver: The liver is mildly enlarged and demonstrates heterogeneously increased echotexture indicating steatosis. There is no intrahepatic biliary ductal dilatation. The main portal vein is patent. Gallbladder: The gallbladder is mildly distended and contains large shadowing gallstones as well as biliary sludge. There is no gallbladder wall thickening or pericholecystic fluid. A sonographic Nunez's sign is reportedly absent. The common bile duct measures up to 0.5 cm in diameter. Pancreas: There is an approximately 5 cm indeterminate hypoechoic density adjacent to pancreatic head. Right kidney: Survey images of the right kidney demonstrate normal size and echo texture. There is no hydronephrosis. Ascites: None. IMPRESSION: 1. There is an approximately 5 cm indeterminant hypoechoic density adjacent to the pancreatic head. Correlation with a contrast-enhanced abdominal CT scan is recommended for further assessment. 2. Cholelithiasis and biliary sludge without sonographic evidence of acute cholecystitis. 3. Hepatomegaly and hepatic steatosis. ACT 112: Negative or not required by law. Electronically signed by: Celestine Gómez M.D. 01/02/2023 12:03 PM Pelvis Ultrasound 01/02/23 11:02 US pelvic complete HISTORY: 62 years-old Female vaginal bleeding postmenopausal acute postmenopausal vaginal bleeding COMPARISON: None TECHNIQUE: Multiple real-time sonographic images of the deep pelvic structures were obtained transabdominally assessing grayscale appearance, color and spectral flow. FINDINGS: Anteflexed uterus measures 8.9 x 3.7 x 4.8 cm. No myometrial mass lesion. Homogeneous echogenic thickening of the endometrium, 1.6 cm. Ovaries are not diagnostically visualized. Limited study secondary to patient body habitus. IMPRESSION: Pathologic thickening of the postmenopausal endometrium. Correlation with tissue sampling recommended. ACT 112: Negative or not required by law. The above report was generated using voice recognition software. It may contain grammatical, syntax or spelling errors. Electronically signed by: Cuco Morrell M.D. 01/02/2023 12:19 PM Abdomen/Pelvis CT 01/02/23 12:[address] WITHOUT CONTRAST CT DOSE: 1493.32 mGy.cm HISTORY: Acute right upper quadrant abdominal pain Eval Pancreatic mass, vaginal bleeding TECHNIQUE: Multiaxial CT images of the abdomen and pelvis were performed without contrast. A dose lowering technique was utilized adhering to the principles of ALARA. COMPARISON STUDY: Abdominal ultrasound of same day FINDINGS: No acute process of the imaged lower chest. Limited study without the use of contrast. Ptosis or pneumoperitoneum. Unremarkable unenhanced spleen, gallbladder and adrenal glands. The patient's cholelithiasis is not identified by ultrasound. Hepatomegaly with hepatic steatosis. No biliary ductal dilation. Mild pancreatic ductal dilation measures up to 6 mm. Ill-defined mass of the pancreatic head is confirmed measuring 4.3 x 3.6 cm. Mild peripancreatic stranding. Subcentimeter peripancreatic and paradise hepatic lymph nodes. The anterior margin of this lesion abuts the adjacent superior mesenteric vein and also abuts the adjacent duodenum which penetrates mild wall thickening. Contrast noted within the renal collecting systems and urinary bladder. No hydronephrosis. Heterogeneous uterus. Atherosclerosis of the aorta. Tiny hiatal hernia. Moderate rectal fecal retention. Colonic diverticulosis. No CT evidence of acute appendicitis. Small fat filled umbilical hernia. No acute fracture. IMPRESSION: 1. Confirmation of the 4.3 cm ill-defined pancreatic head mass resulting in upstream pancreatic ductal dilation. Evaluation is limited without the use of IV contrast, however the imaging characteristics are suspicious for adenocarcinoma. GI consultation with endoscopy and tissue sampling recommended. 2. The pancreatic mass abuts and possibly infiltrates the adjacent duodenum . No obstruction. 3. No evidence of metastatic disease. 4. Hepatic steatosis. ACT 112: Negative or not required by law. The above report was generated using voice recognition software. It may contain grammatical, syntax or spelling errors. Electronically signed by: Cuco Morrell M.D. 01/02/2023 1:35 PM Brain MRI 01/02/23 13:57 MR brain wo con CLINICAL HISTORY: CVA r/o, Left sided weakness, pancreatic mass TECHNIQUE: Multiplanar and multisequence MR images of the brain were obtained without intravenous contrast. Comparison: Comparison is made to CT head 01/02/2023 FINDINGS: Exam is limited by patient motion. There is prominent restricted diffusion in the right parietotemporal region. A few punctate foci of restricted diffusion are also seen in the bilateral occipital lobes and right cerebellum. Matter edema is seen in the corresponding right parietotemporal region. The ventricular system is normal in appearance. No mass is seen. There is no mass effect or midline shift. Evaluation for hemorrhage is highly limited, no leighann hemorrhage is seen. No extra axial fluid collections are seen. The corpus callosum, pituitary gland, and cerebellar tonsils appear grossly unremarkable. Flow voids of the major intracranial arterial vessels are identified. The imaged portions of the paranasal sinuses, mastoid air cells, and orbits are unremarkable. IMPRESSION: Findings are compatible with acute infarct in the right parietal temporal region as well as a few punctate occipital and cerebellar foci of infarct. Evaluation for hemorrhage is highly limited by patient motion however no leighann hemorrhage is seen. ACT 112: Negative or not required by law. Electronically signed by: Janak Joy M.D. 01/02/2023 4:42 PM
--- NOTE | 2023-01-04 13:15 | Cardiology Progress Note ---
Date of Service January 04, 2023 Assessment & Plan (1) Acute CVA (cerebrovascular accident): (2) Acute left hemiparesis: (3) Elevated troponin: (4) HLD (hyperlipidemia): (5) Obesity, morbid, BMI 40.0-49.9: Plan Patient is a 62-year-old female presented acutely with left-sided weakness and findings of right temporal and parietal lobe stroke pattern suggestive of embolic phenomena. Troponins elevated but flat No recent cardiac symptoms no history of arrhythmias Initial telemetry without arrhythmia EKG is normal serially Echocardiogram demonstrates preserved LV systolic function without wall motion abnormality or significant valvular abnormality. Intra-atrial septum interrog ated by agitated saline contrast without shunt Impression: Possible embolic stroke Elevated troponin without cardiac anomaly, normal EKG and LV systolic function Recommendations: As per neurology agree aspirin plus lipid-lowering therapy Repeat CT head today given pain Given age of 62 may consider transesophageal echocardiogram Maintain telemetry in hospital and event monitor post discharge Admission and Anticipated Discharge Date Admission Date: January 02, 2023 Subjective Patient seen and examined, chart, medications, telemetry reviewed. Patient complains of headache this morning severe. No acute change in neurologic function with residual mild left-sided weakness and ataxia No chest pains or shortness of breath No arrhythmias on telemetry Review of Systems Review of Systems: All systems reviewed & are unremarkable except as noted in Subjective Physical Exam Constitutional: WD/WN, vitals as above Complaining of headache Neck: trachea midline, no thyromegaly Respiratory: normal respiratory effort, lungs clear to auscultation Cardiovascular: RRR, no murmur, no edema Gastrointestinal (Abdomen): normal bowel sounds, soft, nontender, no hepatosplenomegaly Results & Data Vital Signs (Past 12 Hours) Vital Signs Temp Pulse Pulse Resp BP Pulse Ox O2 Del Method 01/04/23 08:20 36.5 C 72 19 146/89 H 96 Room Air 01/04/23 07:26 68 01/04/23 03:00 36.8 C 77 18 165/87 H 99 Room Air Laboratory Results Laboratory Results - last 24 hr 01/03/23 01/04/23 01/04/23 20:19 04:44 04:44 WBC Cancelled RBC Cancelled Hgb Cancelled Hct Cancelled MCV Cancelled MCH Cancelled MCHC Cancelled RDW Std Deviation Cancelled RDW Coeff of Kristin Cancelled Plt Count Cancelled MPV Cancelled Immature Gran % (Auto) Cancelled Neut % (Auto) Cancelled Lymph % (Auto) Cancelled [place] % (Auto) Cancelled Eos % (Auto) Cancelled Baso % (Auto) Cancelled Neut # (Auto) Cancelled Lymph # (Auto) Cancelled [place] # (Auto) Cancelled Eos # (Auto) Cancelled Baso # (Auto) Cancelled Immature Gran # (Auto) Cancelled Absolute Nucleated RBC Cancelled Nucleated RBC % (auto) Cancelled Neutrophils % (Manual) Cancelled Band Neutrophils % Cancelled Lymphocytes % (Manual) Cancelled Prolymphocyte % Cancelled Reactive Lymphs % (Man) Cancelled Monocytes % (Manual) Cancelled Eosinophils % (Manual) Cancelled Basophils % (Manual) Cancelled Metamyelocytes % (Man) Cancelled Myelocytes % (Man) Cancelled Promyelocytes % (Man) Cancelled Blast Cells % (Manual) Cancelled Plasma Cell % (Manual) Cancelled Other Cells % Cancelled Nucleated RBC % Cancelled Neutrophils # (Manual) Cancelled Band Neutrophils # Cancelled Total Absolute Neuts Cancelled Lymphocytes # (Manual) Cancelled Prolymphocyte # Cancelled Reactive Lymphs # Cancelled Total Abs Lymphocytes Cancelled Monocytes # (Manual) Cancelled Eosinophils # (Manual) Cancelled Basophils # (Manual) Cancelled Metamyelocytes # (Man) Cancelled Myelocytes # (Manual) Cancelled Promyelocytes # (Man) Cancelled Blast Cells # (Man) Cancelled Plasma Cell # (Manual) Cancelled Other Cells # Cancelled Nucleated RBCs # (Man) Cancelled Hypersegmented Neuts Cancelled Hyposegmented Neuts Cancelled Hypogranular Neuts Cancelled Large Granular Lymphs Cancelled # Lrg Granular Lymphs Cancelled Hairy Cells Cancelled Smudge Cells Cancelled Toxic Granulation Cancelled Toxic Vacuolation Cancelled Dohle Bodies Cancelled Robe Rods Cancelled Platelet Estimate Cancelled Hypogranular Platelets Cancelled Giant Platelets Cancelled Platelet Satelliting Cancelled RBC Morphology Cancelled Polychromasia Cancelled Hypochromasia Cancelled Poikilocytosis Cancelled Basophilic Stippling Cancelled Anisocytosis Cancelled Microcytosis Cancelled Macrocytosis Cancelled Spherocytes Cancelled Pappenheimer Bodies Cancelled Sickle Cells Cancelled Target Cells Cancelled Tear Drop Cells Cancelled Ovalocytes Cancelled Stomatocytes Cancelled [place] Bodies Cancelled Echinocytes Cancelled Acanthocytes (Spur) Cancelled Rouleaux Cancelled RBC Agglutinates Cancelled Schistocytes Cancelled [place] Cell Cancelled Sodium 139 Potassium 4.1 Chloride 108 H Carbon Dioxide 22 Anion Gap 9 BUN 6 Creatinine 0.63 Est Cr Clr Drug Dosing 126.5 Est GFR ( Amer) 113.0 Est GFR (Non-Af Amer) 97.5 BUN/Creatinine Ratio 9.5 L Glucose 120 H POC Glucose 120 H Calcium 9.0 Triglycerides 107 Cholesterol 130 LDL Cholesterol, Calc 61 VLDL Cholesterol, Calc 21 HDL Cholesterol 48 Cholesterol/HDL Ratio 2.7 Blood Parasites ID Cancelled 01/04/23 01/04/23 06:44 07:59 WBC 12.83 H RBC 4.84 Hgb 12.8 Hct 39.7 MCV 82.0 MCH 26.4 MCHC 32.2 RDW Std Deviation 41.1 RDW Coeff of Kristin 13.9 Plt Count 304 MPV 9.7 Immature Gran % (Auto) 0.2 Neut % (Auto) 74.7 Lymph % (Auto) 14.3 [place] % (Auto) 7.2 Eos % (Auto) 3.1 Baso % (Auto) 0.5 Neut # (Auto) 9.57 H Lymph # (Auto) 1.84 [place] # (Auto) 0.93 H Eos # (Auto) 0.40 Baso # (Auto) 0.06 Immature Gran # (Auto) 0.03 Absolute Nucleated RBC Nucleated RBC % (auto) Neutrophils % (Manual) Band Neutrophils % Lymphocytes % (Manual) Prolymphocyte % Reactive Lymphs % (Man) Monocytes % (Manual) Eosinophils % (Manual) Basophils % (Manual) Metamyelocytes % (Man) Myelocytes % (Man) Promyelocytes % (Man) Blast Cells % (Manual) Plasma Cell % (Manual) Other Cells % Nucleated RBC % Neutrophils # (Manual) Band Neutrophils # Total Absolute Neuts Lymphocytes # (Manual) Prolymphocyte # Reactive Lymphs # Total Abs Lymphocytes Monocytes # (Manual) Eosinophils # (Manual) Basophils # (Manual) Metamyelocytes # (Man) Myelocytes # (Manual) Promyelocytes # (Man) Blast Cells # (Man) Plasma Cell # (Manual) Other Cells # Nucleated RBCs # (Man) Hypersegmented Neuts Hyposegmented Neuts Hypogranular Neuts Large Granular Lymphs # Lrg Granular Lymphs Hairy Cells Smudge Cells Toxic Granulation Toxic Vacuolation Dohle Bodies Robe Rods Platelet Estimate Hypogranular Platelets Giant Platelets Platelet Satelliting RBC Morphology Polychromasia Hypochromasia Poikilocytosis Basophilic Stippling Anisocytosis Microcytosis Macrocytosis Spherocytes Pappenheimer Bodies Sickle Cells Target Cells Tear Drop Cells Ovalocytes Stomatocytes [place] Bodies Echinocytes Acanthocytes (Spur) Rouleaux RBC Agglutinates Schistocytes [place] Cell Sodium Potassium Chloride Carbon Dioxide Anion Gap BUN Creatinine Est Cr Clr Drug Dosing Est GFR ( Amer) Est GFR (Non-Af Amer) BUN/Creatinine Ratio Glucose POC Glucose 115 H Calcium Triglycerides Cholesterol LDL Cholesterol, Calc VLDL Cholesterol, Calc HDL Cholesterol Cholesterol/HDL Ratio Blood Parasites ID
[2023-01-04] MEDS ORDERED: ACETAMINOPHEN 1,000 MG/100 ML VIAL IV STA (13:41)
--- NOTE | 2023-01-04 14:05 | CT Scan Report ---
CT head/brain wo con CLINICAL HISTORY: Recent stroke, complains of headache Technique: Contiguous axial CT images of the head were acquired from the base of the skull to the jeison kat without intravenous contrast administration. Images were viewed in brain, [facility]. Automated dose lowering techniques and/or adjustment according to patient size were utilized for this exam. Comparison: Comparison is made to MRI brain 01/02/2023 Findings: Hypodensity in the right posterior MCA territory is compatible with infarct is seen on prior MRI. The re is questionable mass effect and minimal midline shift of approximately 2 mm. Imaged portions of the paranasal sinuses and mastoid air cells are clear. The orbits appear normal. There are no acute fractures of the calvaria or scalp swelling. Impression: Findings are compatible with previously noted right posterior MCA territory infarct with associated e renuka. No hemorrhagic transformation is seen. Punctate additional foci of infarct seen on MRI are not seen on today's exam. ACT 112: Negative or not required by law. Electronically signed by: Janak Joy M.D. 01/04/2023 2:03 PM
[2023-01-04] MEDS: ATORVASTATIN 40 MG TAB PO SCH (14:16)
[2023-01-04] MEDS: ASPIRIN 81 MG ECTAB PO SCH (14:17)
[2023-01-04] MEDS: LOSARTAN POTASSIUM 50 MG TAB PO SCH ×2 (14:17→21:12)
--- NOTE | 2023-01-04 14:29 | Magnetic Resonance Report ---
MR abdomen wo/w con CLINICAL HISTORY: pancreatic protocol TECHNIQUE: Multiplanar multisequence images were obtained of the abdomen with and without the adminis tration of contrast. COMPARISON: Comparison is made to CT abdomen pelvis 01/02/2023 FINDINGS: Lower chest: No acute abnormality Liver: Hepatic steatosis is noted. Gallbladder and biliary tree: Cholelithiasis is seen without evidence of cholecystitis. No intra- or extrahepatic biliary ductal dilation. Pancreas: There is enlargement of the distal pancreatic duct due to a pancreatic head mass measuring approximately 41 x 36 mm. This mass demonstrates rim enhancement with central hypoenhancement compati ble with necrosis. The portal vein and branches of the aorta are not involved. Spleen: Hypoenhancing lesion in the spleen is nonspecific. Adrenals: Unremarkable. Kidneys and ureters: Unremarkable. Bowel: Unremarkable. Lymph nodes Retroperitoneal: Subcentimeter lymph nodes are seen including a 6 mm node adjacent to the pancreatic head mass. Mesenteric: Unremarkable. Peritoneum: Normal Vessels: Unremarkable. Abdominal wall: Unremarkable. Bones: Unremarkable. IMPRESSION: 1. Pancreatic head mass is known to enhance with some central hypoenhancement compatible with malign jayna with central necrosis. No vascular involvement is seen. There is a subcentimeter adjacent lymph node. Additional findings are as above. 2. Hepatic steatosis. ACT 112: Negative or not required by law. Electronically signed by: Janak Joy M.D. 01/04/2023 2:27 PM
[2023-01-05] MEDS: HEPARIN SOD 5,000 UNIT/0.5 ML VIAL SQ SCH ×3 (06:00→21:38)
[2023-01-05 06:12] LABS: Basophils # (auto) 0.06 K/uL (0-0.2); Basophils % (auto) 0.5 %; Eosinophils # (auto) 0.39 K/uL (0-0.50); Eosinophils % (auto) 3.5 %; Hematocrit (blood only) 38.7 % (37.0-47.0); Hemoglobin 12.5 g/dl (12.0-16.0); Immature Granulocytes # (auto) 0.03 K/uL (0.01-0.20); Immature Granulocytes % (auto) 0.3 %; Lymphocytes # (auto) 1.81 K/uL (1.2-3.4); Mean Corpuscular Hemoglobin 26.6 pg (25.0-34.0); Mean Corpuscular Hgb Conc 32.3 g/dL (32.0-36.0); Mean Corpuscular Volume 82.3 fL (80.0-100.0); Mean Platelet Volume 9.6 fL (9.4-12.4); Monocytes # (auto) 0.79 K/uL (0.11-0.59); Neutrophils # (auto) 8.22 K/uL (1.40-6.50); Neutrophils % (auto) 72.7 %; Platelet Count 294 K/uL (130-400); RDW Coefficient of Variation 13.9 % (11.5-14.5); RDW Standard Deviation 41.5 fL (36.4-46.3)
[2023-01-05 06:28] LABS: BUN Creatinine Ratio 9.7 (10-20); Calcium 9.2 mg/dl (8.6-10.3); Creatinine Clr Calc Pharmacy 110.7 ml/min; Est GFR (African American) 105.5 ml/min; Potassium 3.8 mmol/L (3.5-5.1)
[2023-01-05] MEDS: ASPIRIN 81 MG ECTAB PO SCH (10:04)
[2023-01-05] MEDS: LOSARTAN POTASSIUM 50 MG TAB PO SCH ×2 (10:04→21:38)
[2023-01-05] MEDS: ATORVASTATIN 40 MG TAB PO SCH (10:07)
--- NOTE | 2023-01-05 10:52 | Gastrointestinal Consultation ---
Date of Consultation January 05, 2023 Assessment & Plan (1) Acute CVA (cerebrovascular accident): 62 year old female admitted with acute CVA - 2 week history of abd pain, imaging shows 4.3 cm ill-defined pancreatic head mass resulting in upstream pancreatic ductal dilation. Will need EGD/EUS w/ FNA when cleared by anesthesia Will send a message and order as an outpatient GI to sign off. Thank you for allowing us to participate in the care of this patient. Please call with any acute changes, questions or concerns. Please see addendum below with additional recommendation from my supervising physician. Supervising Physician Co-Signing Physician Notes Attending attestation I have seen, examined this patient, and agree with the findings and above by our mid-level provider TYLER Lopez, with the following additions: - Adm with Acute CVA, mild residual deficits - incidental finding of pancreatic mass on CT - will need clearance from anesthesia prior to proceeding for EUS at a time to be determined History of Present Illness Reason for Consultation: panc mass Requesting Physician: Caty Attending Physician: Tera Byrne MD History of Present Illness 62 year old female with history of obesity with a BMI of 44, dyslipidemia admitted w/ acute onset of left-sided weakness and left-sided hand paresthesias - CVA. GI asked to evaluate for abnormal imaging. Notes about 2 week history of abd pain, decreased appetite. Because of this, she changed her diet with result of 10/15 weight loss. Suggests her abd pain starting to feel better and today she is comfortable. MRI ABD 2022: . Pancreatic head mass is known to enhance with some central hypoenhancement compatible with malignancy with central necrosis. No vascular involvement is seen. There is a subcentimeter adjacent lymph node. Additional findings are as above. Hepatic steatosis. CTAP 2022: Confirmation of the 4.3 cm ill-defined pancreatic head mass resulting in upstream pancreatic ductal dilation. Evaluation is limited without the use of IV contrast, however the imaging characteristics are suspicious for adenocarcinoma. GI consultation with endoscopy and tissue sampling recommended. The pancreatic mass abuts and possibly infiltrates the adjacent duodenum . No obstruction. No evidence of metastatic disease.Hepatic steatosis. Allergies Allergy/AdvReac Type Severity Reaction Status Date / Time No Known Allergies Allergy Unverified 01/02/23 15:45 Home Medications Medication Instructions Recorded Confirmed Type clonazepam 0.5 mg tablet 0.5 mg PO BID PRN Anxiety 01/02/23 01/02/23 History meloxicam 7.5 mg tablet 7.5 mg PO DAILY PRN Pain 01/02/23 01/02/23 History nitroglycerin 0.3 mg sublingual 0.3 mg sublingual UD 01/02/23 01/02/23 History tablet Patient History Medical History Anxiety HLD (hyperlipidemia) Hx of mammogram Obesity, morbid, BMI 40.0-49.9 Surgical History Hx of colonoscopy Family History Father , age 64 prostate cancer Prostate cancer Grandmother (Paternal) Cancer Breast cancer Social History Smoking Status: Never smoker Second Hand Exposure: No; Do You Dip or Chew Tobacco: No; Hx Alcohol Use: Yes Alcohol Intake Frequency: Monthly or Less Hx Substance Use: No Custom Shoemaker Required: No Beliefs That Will Affect Care: None Current Living Situation: Spouse and Family current occupational status: employed 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 Feels Safe at Home: Yes Assistive Devices: Cane and Glasses Review of Systems Review of Systems: All systems reviewed & are unremarkable except as noted in HPI & below Physical Exam Constitutional: WD/WN, vitals as above Respiratory: normal respiratory effort, lungs clear to auscultation Cardiovascular: Rate/Rhythm: regular rate and regular rhythm Gastrointestinal (Abdomen): normal bowel sounds, soft, nontender, no hepatosplenomegaly Skin: no rashes, warm and dry Results & Data Vital Signs (Past 12 Hours) Vital Signs Temp Pulse Pulse Resp BP Pulse Ox O2 Del Method 01/05/23 08:24 36.6 C 79 20 124/70 96 Room Air 01/05/23 03:03 36.9 C 66 18 147/79 H 98 Room Air 01/04/23 23:18 36.7 C 70 18 143/72 H 97 Room Air 01/04/23 23:11 78 Laboratory Results 01/05/23 01/05/23 01/05/23 Range/Units 07:33 05:46 05:46 WBC 11.30 H (4.8-10.8) K/ul RBC 4.70 (4.20-5.40) M/uL Hgb 12.5 (12.0-16.0) g/dl Hct 38.7 (37.0-47.0) % MCV 82.3 (80.0-100.0) fL MCH 26.6 (25.0-34.0) pg MCHC 32.3 (32.0-36.0) g/dL RDW Std Deviation 41.5 (36.4-46.3) fL RDW Coeff of Kristin 13.9 (11.5-14.5) % Plt Count 294 (130-400) K/uL MPV 9.6 (9.4-12.4) fL Immature Gran % (Auto) 0.3 % Neut % (Auto) 72.7 % Lymph % (Auto) 16.0 % [place] % (Auto) 7.0 % Eos % (Auto) 3.5 % Baso % (Auto) 0.5 % Neut # (Auto) 8.22 H (1.40-6.50) K/uL Lymph # (Auto) 1.81 (1.2-3.4) K/uL [place] # (Auto) 0.79 H (0.11-0.59) K/uL Eos # (Auto) 0.39 (0-0.50) K/uL Baso # (Auto) 0.06 (0-0.2) K/uL Immature Gran # (Auto) 0.03 (0.01-0.20) K/uL Sodium 139 (136-145) mmol/L Potassium 3.8 (3.5-5.1) mmol/L Chloride 106 (98-107) mmol/L Carbon Dioxide 27 (21-32) mmol/L Anion Gap 6 (3-11) BUN 7 (6-23) mg/dl Creatinine 0.72 (0.6-1.2) mg/dl Est Cr Clr Drug Dosing 110.7 ml/min Est GFR ( Amer) 105.5 ml/min Est GFR (Non-Af Amer) 91.0 ml/min BUN/Creatinine Ratio 9.7 L (10-20) Glucose 130 H (70-99(Fasting)) mg/dl POC Glucose 127 H (70-99) mg/dl Calcium 9.2 (8.6-10.3) mg/dl 01/04/23 01/04/23 Range/Units 20:05 17:06 WBC (4.8-10.8) K/ul RBC (4.20-5.40) M/uL Hgb (12.0-16.0) g/dl Hct (37.0-47.0) % MCV (80.0-100.0) fL MCH (25.0-34.0) pg MCHC (32.0-36.0) g/dL RDW Std Deviation (36.4-46.3) fL RDW Coeff of Kristin (11.5-14.5) % Plt Count (130-400) K/uL MPV (9.4-12.4) fL Immature Gran % (Auto) % Neut % (Auto) % Lymph % (Auto) % [place] % (Auto) % Eos % (Auto) % Baso % (Auto) % Neut # (Auto) (1.40-6.50) K/uL Lymph # (Auto) (1.2-3.4) K/uL [place] # (Auto) (0.11-0.59) K/uL Eos # (Auto) (0-0.50) K/uL Baso # (Auto) (0-0.2) K/uL Immature Gran # (Auto) (0.01-0.20) K/uL Sodium (136-145) mmol/L Potassium (3.5-5.1) mmol/L Chloride (98-107) mmol/L Carbon Dioxide (21-32) mmol/L Anion Gap (3-11) BUN (6-23) mg/dl Creatinine (0.6-1.2) mg/dl Est Cr Clr Drug Dosing ml/min Est GFR ( Amer) ml/min Est GFR (Non-Af Amer) ml/min BUN/Creatinine Ratio (10-20) Glucose (70-99(Fasting)) mg/dl POC Glucose 115 H 125 H (70-99) mg/dl Calcium (8.6-10.3) mg/dl
--- NOTE | 2023-01-05 11:20 | Pharmacy Report ---
- Date of Service January 05, 2023 - Pharmacy CVA/TIA Medication Review Medications to Prevent Stroke handout has been added to the patients discharge packet. Antiplatelet(s) * ASPIRIN 81 mg and PLAVIX 75 mg daily Cholesterol * High intensity statin: atorvastatin 80 mg daily DVT Prophylaxis * Heparin SQ Therapeutic Anticoagulation * No history of Afib/Aflutter noted Type 2 Diabetes * Patient does not have T2DM
--- NOTE | 2023-01-05 14:01 | Hospitalist Progress Note ---
Date of Service January 05, 2023 Assessment & Plan (1) Acute left hemiparesis: (2) Acute CVA (cerebrovascular accident): Plan: Patient is a 62-year-old female with past medical history of migraine, hyperlipidemia presents to the hospital with sharp frontal headache and weakness in left leg and arm On presentation, patient had mild weakness on left arm and leg with ataxia on left arm Patient declined TNK which was recommended by [facility] due to concern for vaginal bleed Following images were reviewed personally: CT scan of the head showed no acute changes. CT angiography of the head and neck were unremarkable and showed no evidence of vascular stenoses or anomalies. MRI of the brain showed a medium-size right parietotemporal stroke with other acute punctate strokes in bioccipital head regions and the right cerebellum. There was no evidence of hemorrhage. Repeat head CT showed previously reported right posterior MCA infarct with associated edema. No hemorrhagic transformation is seen. Echocardiogram results reviewed; EF of 60 to 65%, no evidence of atrial septal defect Currently on aspirin and statin. A1c of 6.4%; Completed permissive hypertension.. We will start her on losartan 50 mg twice daily Continue PT OT Telemetry monitoring. Patient had episode of SVT; cardiology to review. We will follow-up on recommendation Continue on Lipitor (3) Elevated troponin: Plan: - Initial set is elevated at 255.6 which trended up to 320 and down trended Echocardiogram as above (4) Mass of pancreas: Plan: CT abdomen and pelvis showed 4.3 ill-defined pancreatic head mass resulting in upstream pancreatic duct dilation. Findings suspicious of adenocarcinoma Recommend multiphasic abdominal imaging study with CT or MRI to define pancreatic mass Recommend couple of weeks of stabilization from [employer] perspective and work-up MRI abdomen done on January 04; pancreatic head with central hyper enhancement compatible with malignancy with central necrosis. No vascular involvement seen. GI reviewed the case; patient to need EGD/EUS with FNAC as outpatient. (5) Obesity, morbid, BMI 40.0-49.9: Plan: - Lifestyle modification, diet and weight loss need to be encouraged throughout hospital stay - BMI of 44.1 (6) Anxiety: Plan: - On clonazepam as needed (7) HLD (hyperlipidemia): Plan: -Lipid profile reviewed;LDL of 61. TG of 107 Added Lipitor 80 mg once daily DVT PPx: -heparin CODE: Full code Time spent evaluating patient, direct bedside care, chart review, placing orders, interpretation of diagnostic studies, discussion with consultants, patient, and family members, as well as other required patient management activities is 60 minutes. Please note the above document was generated using voice recognition software. It may contain grammatical, syntax or spelling errors. Any formal questions or concerns about the content, text or information contained within the body of this dictation should be directly addressed to the provider for clarification Admission and Anticipated Discharge Date Admission Date: January 02, 2023 Subjective Patient seen and examined at bedside. She is lying in the bed comfortably; reports that her strength in her arms and legs are getting better. Telemetry reviewed; at 12 second burst of SVT overnight. Review of Systems Review of Systems: All systems reviewed & are unremarkable except as noted in Subjective Physical Exam Physical Exam: Constitutional: WD/WN, vitals as above, NAD, sitting up in bed, pleasant, conversing easily Respiratory: normal respiratory effort, lungs clear to auscultation, no wheeze, rales, rhonchi. Normal insp/exp effort, no accessory muscle use Cardiovascular: RRR, no murmur, no edema Vessels: no JVD or carotid bruit Chest: normal inspection of chest Abdomen: normal bowel sounds, soft, nontender, no hepatosplenomegaly Musculoskeletal: no cyanosis or clubbing, extremities motor strength 5/5 Skin: no rashes, warm and dry normal turgor Neurologic: Awake alert oriented x3, cranial nerves II to XII intact. Strength of left upper extremity and lower extremity 4/5. Sensation intact throughout. Psychiatric: A+Ox3, euthymic affect Results & Data Results & Data Vital Signs (Past 12 Hours) Vital Signs Temp Pulse Pulse Resp BP Pulse Ox O2 Del Method 01/05/23 12:28 36.7 C 75 20 135/74 97 Room Air 01/05/23 12:10 77 01/05/23 12:10 Room Air 01/05/23 08:24 36.6 C 79 20 124/70 96 Room Air 01/05/23 03:03 36.9 C 66 18 147/79 H 98 Room Air Laboratory Results Laboratory Results WBC 11.30 K/ul (4.8-10.8) H 01/05/23 05:46 RBC 4.70 M/uL (4.20-5.40) 01/05/23 05:46 Hgb 12.5 g/dl (12.0-16.0) 01/05/23 05:46 POC Hgb 12.6 g/dl (12.0-16.0) 01/02/23 08:37 Hct 38.7 % (37.0-47.0) 01/05/23 05:46 POC Hct 37 % (37-47) 01/02/23 08:37 MCV 82.3 fL (80.0-100.0) 01/05/23 05:46 MCH 26.6 pg (25.0-34.0) 01/05/23 05:46 MCHC 32.3 g/dL (32.0-36.0) 01/05/23 05:46 RDW Std Deviation 41.5 fL (36.4-46.3) 01/05/23 05:46 RDW Coeff of Kristin 13.9 % (11.5-14.5) 01/05/23 05:46 Plt Count 294 K/uL (130-400) 01/05/23 05:46 MPV 9.6 fL (9.4-12.4) 01/05/23 05:46 Immature Gran % (Auto) 0.3 % 01/05/23 05:46 Neut % (Auto) 72.7 % 01/05/23 05:46 Lymph % (Auto) 16.0 % 01/05/23 05:46 [place] % (Auto) 7.0 % 01/05/23 05:46 Eos % (Auto) 3.5 % 01/05/23 05:46 Baso % (Auto) 0.5 % 01/05/23 05:46 Neut # (Auto) 8.22 K/uL (1.40-6.50) H 01/05/23 05:46 Lymph # (Auto) 1.81 K/uL (1.2-3.4) 01/05/23 05:46 [place] # (Auto) 0.79 K/uL (0.11-0.59) H 01/05/23 05:46 Eos # (Auto) 0.39 K/uL (0-0.50) 01/05/23 05:46 Baso # (Auto) 0.06 K/uL (0-0.2) 01/05/23 05:46 Immature Gran # (Auto) 0.03 K/uL (0.01-0.20) 01/05/23 05:46 Absolute Nucleated RBC Cancelled 01/04/23 04:44 Nucleated RBC % (auto) Cancelled 01/04/23 04:44 Neutrophils % (Manual) Cancelled 01/04/23 04:44 Band Neutrophils % Cancelled 01/04/23 04:44 Lymphocytes % (Manual) Cancelled 01/04/23 04:44 Prolymphocyte % Cancelled 01/04/23 04:44 Reactive Lymphs % (Man) Cancelled 01/04/23 04:44 Monocytes % (Manual) Cancelled 01/04/23 04:44 Eosinophils % (Manual) Cancelled 01/04/23 04:44 Basophils % (Manual) Cancelled 01/04/23 04:44 Metamyelocytes % (Man) Cancelled 01/04/23 04:44 Myelocytes % (Man) Cancelled 01/04/23 04:44 Promyelocytes % (Man) Cancelled 01/04/23 04:44 Blast Cells % (Manual) Cancelled 01/04/23 04:44 Plasma Cell % (Manual) Cancelled 01/04/23 04:44 Other Cells % Cancelled 01/04/23 04:44 Nucleated RBC % Cancelled 01/04/23 04:44 Neutrophils # (Manual) Cancelled 01/04/23 04:44 Band Neutrophils # Cancelled 01/04/23 04:44 Total Absolute Neuts Cancelled 01/04/23 04:44 Lymphocytes # (Manual) Cancelled 01/04/23 04:44 Prolymphocyte # Cancelled 01/04/23 04:44 Reactive Lymphs # Cancelled 01/04/23 04:44 Total Abs Lymphocytes Cancelled 01/04/23 04:44 Monocytes # (Manual) Cancelled 01/04/23 04:44 Eosinophils # (Manual) Cancelled 01/04/23 04:44 Basophils # (Manual) Cancelled 01/04/23 04:44 Metamyelocytes # (Man) Cancelled 01/04/23 04:44 Myelocytes # (Manual) Cancelled 01/04/23 04:44 Promyelocytes # (Man) Cancelled 01/04/23 04:44 Blast Cells # (Man) Cancelled 01/04/23 04:44 Plasma Cell # (Manual) Cancelled 01/04/23 04:44 Other Cells # Cancelled 01/04/23 04:44 Nucleated RBCs # (Man) Cancelled 01/04/23 04:44 Hypersegmented Neuts Cancelled 01/04/23 04:44 Hyposegmented Neuts Cancelled 01/04/23 04:44 Hypogranular Neuts Cancelled 01/04/23 04:44 Large Granular Lymphs Cancelled 01/04/23 04:44 # Lrg Granular Lymphs Cancelled 01/04/23 04:44 Hairy Cells Cancelled 01/04/23 04:44 Smudge Cells Cancelled 01/04/23 04:44 Toxic Granulation Cancelled 01/04/23 04:44 Toxic Vacuolation Cancelled 01/04/23 04:44 Dohle Bodies Cancelled 01/04/23 04:44 Robe Rods Cancelled 01/04/23 04:44 Platelet Estimate Cancelled 01/04/23 04:44 Hypogranular Platelets Cancelled 01/04/23 04:44 Giant Platelets Cancelled 01/04/23 04:44 Platelet Satelliting Cancelled 01/04/23 04:44 RBC Morphology Cancelled 01/04/23 04:44 Polychromasia Cancelled 01/04/23 04:44 Hypochromasia Cancelled 01/04/23 04:44 Poikilocytosis Cancelled 01/04/23 04:44 Basophilic Stippling Cancelled 01/04/23 04:44 Anisocytosis Cancelled 01/04/23 04:44 Microcytosis Cancelled 01/04/23 04:44 Macrocytosis Cancelled 01/04/23 04:44 Spherocytes Cancelled 01/04/23 04:44 Pappenheimer Bodies Cancelled 01/04/23 04:44 Sickle Cells Cancelled 01/04/23 04:44 Target Cells Cancelled 01/04/23 04:44 Tear Drop Cells Cancelled 01/04/23 04:44 Ovalocytes Cancelled 01/04/23 04:44 Stomatocytes Cancelled 01/04/23 04:44 [place] Bodies Cancelled 01/04/23 04:44 Echinocytes Cancelled 01/04/23 04:44 Acanthocytes (Spur) Cancelled 01/04/23 04:44 Rouleaux Cancelled 01/04/23 04:44 RBC Agglutinates Cancelled 01/04/23 04:44 Schistocytes Cancelled 01/04/23 04:44 Sezary Cell Cancelled 01/04/23 04:44 PT 11.5 Seconds (9.0-12.0) 01/02/23 08:32 INR 1.1 (0.9-1.1) 01/02/23 08:32 APTT 26.1 Seconds (21.0-31.0) 01/02/23 08:32 PTT Ratio 0.9 01/02/23 08:32 POC Sodium 137 mmol/L (135-144) 01/02/23 08:37 Sodium 139 mmol/L (136-145) 01/05/23 05:46 POC Potassium 3.9 mmol/L (3.3-5.0) 01/02/23 08:37 Potassium 3.8 mmol/L (3.5-5.1) 01/05/23 05:46 POC Chloride 102 mmol/L (101-112) 01/02/23 08:37 Chloride 106 mmol/L (98-107) 01/05/23 05:46 Carbon Dioxide 27 mmol/L (21-32) 01/05/23 05:46 POC Total CO2 22 mmol/L (24-31) L 01/02/23 08:37 Anion Gap 6 (3-11) 01/05/23 05:46 POC Anion Gap 18.0 mmol/L (16-25) 01/02/23 08:37 POC BUN 11 mg/dl (7-18) 01/02/23 08:37 BUN 7 mg/dl (6-23) 01/05/23 05:46 Creatinine 0.72 mg/dl (0.6-1.2) 01/05/23 05:46 POC Creatinine 0.7 mg/dl (0.6-1.3) 01/02/23 08:37 Est Cr Clr Drug Dosing 110.7 ml/min 01/05/23 05:46 Est GFR ( Amer) 105.5 ml/min 01/05/23 05:46 Est GFR (Non-Af Amer) 91.0 ml/min 01/05/23 05:46 BUN/Creatinine Ratio 9.7 (10-20) L 01/05/23 05:46 Glucose 130 mg/dl (70-99(Fasting)) H 01/05/23 05:46 POC Glucose 127 mg/dl (70-99) H 01/05/23 07:33 POC Glucose (other) 168 mg/dl (70-99) H 01/02/23 08:37 Estimat Average Glucose 137 mg/dl 01/03/23 10:02 Hemoglobin A1c 6.4 % (4.5-5.6) H 01/03/23 10:02 Calcium 9.2 mg/dl (8.6-10.3) 01/05/23 05:46 POC Ioniz Calcium Alex 1.13 mmol/l (1.12-1.32) 01/02/23 08:37 Magnesium 2.0 mg/dl (1.7-2.4) 01/02/23 08:32 Total Bilirubin 0.5 mg/dl (0.2-1.0) 01/02/23 08:32 AST 15 U/L (13-39) 01/02/23 08:32 ALT 13 U/L (7-52) 01/02/23 08:32 Alkaline Phosphatase 83 U/L (34-104) 01/02/23 08:32 Troponin I High Sens 257.1 pg/ml (0-14) H* D 01/03/23 08:29 Total Protein 7.0 gm/dl (6.0-8.3) 01/02/23 08:32 Albumin 3.9 gm/dl (3.4-5.0) 01/02/23 08:32 Globulin 3.1 gm/dl (2.5-4.0) 01/02/23 08:32 Albumin/Globulin Ratio 1.3 (0.9-2) 01/02/23 08:32 Triglycerides 107 mg/dl (0-150) 01/04/23 04:44 Cholesterol 130 mg/dl (0-200) 01/04/23 04:44 LDL Cholesterol, Calc 61 mg/dl 01/04/23 04:44 VLDL Cholesterol, Calc 21 mg/dl (0-30) 01/04/23 04:44 HDL Cholesterol 48 mg/dl 01/04/23 04:44 Cholesterol/HDL Ratio 2.7 (0-5) 01/04/23 04:44 SARS-CoV-2 (PCR) NEGATIVE (Negative) 01/02/23 10:04 Influenza Type A (PCR) Negative (Neg) 01/02/23 10:04 Influenza Type B (PCR) Negative (Neg) 01/02/23 10:04 RSV (RT-PCR) Negative (Neg) 01/02/23 10:04 Blood Parasites ID Cancelled 01/04/23 04:44 Impressions Chest X-Ray 01/02/23 08:17 XR chest 1V portable HISTORY: 62 years-old Female neuro deficit, acute stroke suspected acute strokelike symptoms COMPARISON: None TECHNIQUE: AP view of the chest FINDINGS: Cardiomediastinal and hilar silhouettes are within normal limits. Mild right hemidiaphragmatic elevation. No pneumothorax, pleural effusion, airspace consolidation or pulmonary edema. Degenerative changes of the shoulders and spine. Bilateral shoulder rotator cuff calcific tendinosis. IMPRESSION: No acute process. ACT 112: Negative or not required by law. The above report was generated using voice recognition software. It may contain grammatical, syntax or spelling errors. Electronically signed by: Cuco Morrell M.D. 01/02/2023 10:27 AM Head CTA 01/02/23 08:17 CT head/brain wo con, CT angio neck with con, CT angio head w con CLINICAL HISTORY: 62 years-old Female with neuro deficit, acute stroke suspected. Acute strokelike symptoms TECHNIQUE: Multiple axial CT images of the head were obtained without contrast. CTA head and neck also obtained following the intravenous administration of 108 mL Optiray 320. 3-D coronal and sagittal maps were obtained and submitted for review. All measurements were obtained according to NASCET criteria. A dose lowering technique was utilized adhering to the principles of ALARA. CT DOSE: 2073.47 mGy.cm COMPARISON: None. FINDINGS: CT HEAD: No acute intracranial hemorrhage, midline shift, intracranial mass, hydro cephalus, territorial ischemia or abnormal extra-axial collection. The calvarium is intact. Mild mucosal thickening of the paranasal sinuses. Mastoid air cells are clear. CTA: Dilated pulmonary artery may represent pulmonary arterial hypertension. Atherosclerosis of the thoracic aorta. Patency of the innominate and image subclavian arteries. Common and internal carotid arteries are patent. Mild atherosclerosis of the right carotid bulb. Anterior and middle cerebral arteries are patent. Vertebral arteries are codominant and patent. The basilar and posterior cerebral arteries are patent. Cerebral venous sinuses are patent. No aneurysm, dissection, high-grade stenosis or arterial occlusion identified. No abnormal intracranial enhancement. No pneumothorax. Groundglass densities in the lungs suggestive of atelectasis. Unremarkable soft tissues. Degenerative changes of the cervical spine. IMPRESSION: 1. No acute intracranial abnormality. 2. Unremarkable CTA of the head and neck. ACT 112: Negative or not required by law. The above report was generated using voice recognition software. It may contain grammatical, syntax or spelling errors. Electronically signed by: Cuco Morrell M.D. 01/02/2023 8:53 AM Neck CTA 01/02/23 08:17 CT head/brain wo con, CT angio neck with con, CT angio head w con CLINICAL HISTORY: 62 years-old Female with neuro deficit, acute stroke suspected. Acute strokelike symptoms TECHNIQUE: Multiple axial CT images of the head were obtained without contrast. CTA head and neck also obtained following the intravenous administration of 108 mL Optiray 320. 3-D coronal and sagittal maps were obtained and submitted for review. All measurements were obtained according to NASCET criteria. A dose lowering technique was utilized adhering to the principles of ALARA. CT DOSE: 2073.47 mGy.cm COMPARISON: None. FINDINGS: CT HEAD: No acute intracranial hemorrhage, midline shift, intracranial mass, hy drocephalus, territorial ischemia or abnormal extra-axial collection. The calvarium is intact. Mild mucosal thickening of the paranasal sinuses. Mastoid air cells are clear. CTA: Dilated pulmonary artery may represent pulmonary arterial hypertension. Atherosclerosis of the thoracic aorta. Patency of the innominate and image subclavian arteries. Common and internal carotid arteries are patent. Mild atherosclerosis of the right carotid bulb. Anterior and middle cerebral arteries are patent. Vertebral arteries are codominant and patent. The basilar and posterior cerebral arteries are patent. Cerebral venous sinuses are patent. No aneurysm, dissection, high-grade stenosis or arterial occlusion identified. No abnormal intracranial enhancement. No pneumothorax. Groundglass densities in the lungs suggestive of atelectasis. Unremarkable soft tissues. Degenerative changes of the cervical spine. IMPRESSION: 1. No acute intracranial abnormality. 2. Unremarkable CTA of the head and neck. ACT 112: Negative or not required by law. The above report was generated using voice recognition software. It may contain grammatical, syntax or spelling errors. Electronically signed by: Cuco Morrell M.D. 01/02/2023 8:53 AM Gallbladder Ultrasound 01/02/23 09:34 ULTRASOUND RIGHT UPPER QUADRANT ABDOMEN CLINICAL HISTORY: Postprandial right upper quadrant abdominal pain. COMPARISON STUDY: No priors. TECHNIQUE: Real-time, grayscale, and color flow sonography of the right upper quadrant of the abdomen was performed. Images are reviewed in the transverse and longitudinal planes. FINDINGS: Liver: The liver is mildly enlarged and demonstrates heterogeneously increased echotexture indicating steatosis. There is no intrahepatic biliary ductal dilatation. The main portal vein is patent. Gallbladder: The gallbladder is mildly distended and contains large shadowing gallstones as well as biliary sludge. There is no gallbladder wall thickening or pericholecystic fluid. A sonographic Nunez's sign is reportedly absent. The common bile duct measures up to 0.5 cm in diameter. Pancreas: There is an approximately 5 cm indeterminate hypoechoic density adjacent to pancreatic head. Right kidney: Survey images of the right kidney demonstrate normal size and echotexture. There is no hydronephrosis. Ascites: None. IMPRESSION: 1. There is an approximately 5 cm indeterminant hypoechoic density adjacent to the pancreatic head. Correlation with a contrast-enhanced abdominal CT scan is recommended for further assessment. 2. Cholelithiasis and biliary sludge without sonographic evidence of acute cholecystitis. 3. Hepatomegaly and hepatic steatosis. ACT 112: Negative or not required by law. Electronically signed by: Celestine Gómez M.D. 01/02/2023 12:03 PM Pelvis Ultrasound 01/02/23 11:02 US pelvic complete HISTORY: 62 years-old Female vaginal bleeding postmenopausal acute postm enopausal vaginal bleeding COMPARISON: None TECHNIQUE: Multiple real-time sonographic images of the deep pelvic structures were obtained transabdominally assessing grayscale appearance, color and spectral flow. FINDINGS: Anteflexed uterus measures 8.9 x 3.7 x 4.8 cm. No myometrial mass lesion. Homogeneous echogenic thickening of the endometrium, 1.6 cm. Ovaries are not diagnostically visualized. Limited study secondary to patient body habitus. IMPRESSION: Pathologic thickening of the postmenopausal endometrium. Correlation with tissue sampling recommended. ACT 112: Negative or not required by law. The above report was generated using voice recognition software. It may contain grammatical, syntax or spelling errors. Electronically signed by: Cuco Morrell M.D. 01/02/2023 12:19 PM Abdomen/Pelvis CT 01/02/23 12:[address] WITHOUT CONTRAST CT DOSE: 1493.32 mGy.cm HISTORY: Acute right upper quadrant abdominal pain Eval Pancreatic mass, vaginal bleeding TECHNIQUE: Multiaxial CT images of the abdomen and pelvis were performed without contrast. A dose lowering technique was utilized adhering to the principles of ALARA. COMPARISON STUDY: Abdominal ultrasound of same day FINDINGS: No acute process of the imaged lower chest. Limited study without the use of contrast. Ptosis or pneumoperitoneum. Unremarkable unenhanced spleen, gallbladder and adrenal glands. The patient's cholelithiasis is not identified by ultrasound. Hepatomegaly with hepatic steatosis. No biliary ductal dilation. Mild pancreatic ductal dilation measures up to 6 mm. Ill-defined mass of the pancreatic head is confirmed measuring 4.3 x 3.6 cm. Mild peripancreatic stranding. Subcentimeter peripancreatic and paradise hepatic lymph nodes. The anterior margin of this lesion abuts the adjacent superior mesenteric vein and also abuts the adjacent duodenum which penetrates mild wall thickening. Contrast noted within the renal collecting systems and urinary bladder. No hydronephrosis. Heterogeneous uterus. Atherosclerosis of the aorta. Tiny hiatal hernia. Moderate rectal fecal retention. Colonic diverticulosis. No CT evidence of acute appendicitis. Small fat filled umbilical hernia. No acute fracture. IMPRESSION: 1. Confirmation of the 4.3 cm ill-defined pancreatic head mass resulting in upstream pancreatic ductal dilation. Evaluation is limited without the use of IV contrast, however the imaging characteristics are suspicious for adenocarcinoma. GI consultation with endoscopy and tissue sampling recommended. 2. The pancreatic mass abuts and possibly infiltrates the adjacent duodenum . No obstruction. 3. No evidence of metastatic disease. 4. Hepatic steatosis. ACT 112: Negative or not required by law. The above report was generated using voice recognition software. It may contain grammatical, syntax or spelling errors. Electronically signed by: Cuco Morrell M.D. 01/02/2023 1:35 PM Brain MRI 01/02/23 13:57 MR brain wo con CLINICAL HISTORY: CVA r/o, Left sided weakness, pancreatic mass TECHNIQUE: Multiplanar and multisequence MR images of the brain were obtained without intravenous contrast. Comparison: Comparison is made to CT head 01/02/2023 FINDINGS: Exam is limited by patient motion. There is prominent restricted diffusion in the right parietotemporal region. A few punctate foci of restricted diffusion are also seen in the bilateral occipital lobes and right cerebellum. Matter edema is seen in the corresponding right parietotemporal region. The ventricular system is normal in appearance. No mass is seen. There is no mass effect or midline shift. Evaluation for hemorrhage is highly limited, no leighann hemorrhage is seen. No extra axial fluid collections are seen. The corpus callosum, pituitary gland, and cerebellar tonsils appear grossly unremarkable. Flow voids of the major intracranial arterial vessels are identified. The imaged portions of the paranasal sinuses, mastoid air cells, and orbits are unremarkable. IMPRESSION: Findings are compatible with acute infarct in the right parietal temporal region as well as a few punctate occipital and cerebellar foci of infarct. Evaluation for hemorrhage is highly limited by patient motion however no leighann hemorrhage is seen. ACT 112: Negative or not required by law. Electronically signed by: Janak Joy M.D. 01/02/2023 4:42 PM Abdomen MRI 01/04/23 10:42 MR abdomen wo/w con CLINICAL HISTORY: pancreatic protocol TECHNIQUE: Multiplanar multisequence images were obtained of the abdomen with and without the administration of contrast. COMPARISON: Comparison is made to CT abdomen pelvis 01/02/2023 FINDINGS: Lower chest: No acute abnormality Liver: Hepatic steatosis is noted. Gallbladder and biliary tree: Cholelithiasis is seen without evidence of cholecystitis. No intra- or extrahepatic biliary ductal dilation. Pancreas: There is enlargement of the distal pancreatic duct due to a pancreatic head mass measuring approximately 41 x 36 mm. This mass demonstrates rim enhancement with central hypoenhancement compatible with necrosis. The portal vein and branches of the aorta are not involved. Spleen: Hypoenhancing lesion in the spleen is nonspecific. Adrenals: Unremarkable. Kidneys and ureters: Unremarkable. Bowel: Unremarkable. Lymph nodes Retroperitoneal: Subcentimeter lymph nodes are seen including a 6 mm node adjacent to the pancreatic head mass. Mesenteric: Unremarkable. Peritoneum: Normal Vessels: Unremarkable. Abdominal wall: Unremarkable. Bones: Unremarkable. IMPRESSION: 1. Pancreatic head mass is known to enhance with some central hypoenhancement compatible with malignancy with central necrosis. No vascular involvement is seen. There is a subcentimeter adjacent lymph node. Additional findings are as above. 2. Hepatic steatosis. ACT 112: Negative or not required by law. Electronically signed by: Janak Joy M.D. 01/04/2023 2:[address] 01/04/23 11:01 CT head/brain wo con CLINICAL HISTORY: Recent stroke, complains of headache Technique: Contiguous axial CT images of the head were acquired from the base of the skull to the vertex without intravenous contrast administration. Images were viewed in brain, subdural and bone windows. Automated dose lowering techniques and/or adjustment according to patient size were utilized for this exam. Comparison: Comparison is made to MRI brain 01/02/2023 Findings: Hypodensity in the right posterior MCA territory is compatible with infarct is seen on prior MRI. There is questionable mass effect and minimal midline shift of approximately 2 mm. Imaged portions of the paranasal sinuses and mastoid air cells are clear. The orbits appear normal. There are no acute fractures of the calvaria or scalp swelling. Impression: Findings are compatible with previously noted right posterior MCA territory infarct with associated edema. No hemorrhagic transformation is seen. Punctate additional foci of infarct seen on MRI are not seen on today's exam. ACT 112: Negative or not required by law. Electronically signed by: Janak Joy M.D. 01/04/2023 2:03 PM
--- NOTE | 2023-01-05 15:39 | Cardiology Progress Note ---
Date of Service January 05, 2023 Assessment & Plan (1) Acute CVA (cerebrovascular accident): (2) Acute left hemiparesis: (3) Elevated troponin: (4) HLD (hyperlipidemia): (5) Obesity, morbid, BMI 40.0-49.9: Plan Patient is a 62-year-old female presented acutely with left-sided weakness and findings of right temporal and parietal lobe stroke. Echocardiogram demonstrates preserved LV systolic function without wall motion abnormality or significant valvular abnormality. Intra-atrial septum interrogated by agitated saline contrast without shunt Impression: Possible embolic stroke Elevated troponin without cardiac anomaly, normal EKG and LV systolic function Brief episodes of narrow complex tachycardia consistent with SVT, however presence of occult atrial fibrillation not excluded. Recommendations: Continue aspirin Given total cholesterol of 130 mg /dl, LDL of 61 mg /dl without prior lipid lowering therapy, would consider reducing the atorvastatin dose from 80 mg to 40 mg or 20 mg. Continue telemetry monitoring. GILBERTO may be indicated for further evaluation , however, would avoid sedation at present and consider later this hospital stay or as outpatient. Admission and Anticipated Discharge Date Admission Date: January 02, 2023 Subjective Patient seen in cardiology follow-up. No acute complaints. Mild expressive aphasia noted. Telemetry reviewed revealing predominantly sinus rhythm in the 70s. There were however 2 brief episodes of narrow complex tachycardia, the first of which occurred on 01/04/2023 at 2315 with 10 seconds of narrow complex tachycardia at 180 bpm. The R-R interval appeared irregular consistent with supraventricular tachycardia. Another episode took place on 01/05/2023 at 3:37 AM of 8 seconds in duration and appeared to be atrial tachycardia with rate in the range of 150 to 180 bpm. No definite atrial fibrillation. Physical Exam Constitutional: WD/WN, vitals as above Neck: trachea midline, no thyromegaly Respiratory: normal respiratory effort, lungs clear to auscultation Cardiovascular: RRR, no murmur, no edema Gastrointestinal (Abdomen): normal bowel sounds, soft, nontender, no hepatosplenomegaly Results & Data Vital Signs (Past 12 Hours) Vital Signs Temp Pulse Pulse Resp BP Pulse Ox O2 Del Method 01/05/23 12:28 36.7 C 75 20 135/74 97 Room Air 01/05/23 12:10 77 01/05/23 12:10 Room Air 01/05/23 08:24 36.6 C 79 20 124/70 96 Room Air Laboratory Results CBC 01/05/23 Range/Units 05:46 WBC 11.30 H (4.8-10.8) K/ul RBC 4.70 (4.20-5.40) M/uL Hgb 12.5 (12.0-16.0) g/dl Hct 38.7 (37.0-47.0) % Plt Count 294 (130-400) K/uL Neut # (Auto) 8.22 H (1.40-6.50) K/uL Lymph # (Auto) 1.81 (1.2-3.4) K/uL Gregg # (Auto) 0.79 H (0.11-0.59) K/uL Eos # (Auto) 0.39 (0-0.50) K/uL Baso # (Auto) 0.06 (0-0.2) K/uL Comprehensive Metabolic Panel 01/05/23 Range/Units 05:46 Sodium 139 (136-145) mmol/L Potassium 3.8 (3.5-5.1) mmol/L Chloride 106 (98-107) mmol/L Carbon Dioxide 27 (21-32) mmol/L BUN 7 (6-23) mg/dl Creatinine 0.72 (0.6-1.2) mg/dl Glucose 130 H (70-99(Fasting)) mg/dl Calcium 9.2 (8.6-10.3) mg/dl Intake and Output 01/05/23 01/05/23 01/05/23 06:59 14:59 22:59 Output Total 300 / 500 Balance -300 / -250 Output: Urine 300 / 500 Diagnostic Findings EKG performed 01/03/2023 and interpreted independently: Sinus rhythm at 74 bpm, normal EKG. MRI of the brain 01/02/2023: Summary of radiology report Findings are compatible with acute infarct in the right parietal temporal region as well as a few punctate occipital and cerebellar foci of infarct. Evaluation for hemorrhage is highly limited by patient motion however no leighann hemorrhage is seen. CT of the brain 01/04/2023, summary of radiology report Findings are compatible with previously noted right posterior MCA territory infarct with associated edema. No hemorrhagic transformation is seen. Punctate additional foci of infarct seen on MRI are not seen on today's exam. High-sensitivity troponin measurements on 01/02/2023 through 01/03/2023: 255, 261, 323, 257 PG per mL Summary of transthoracic echocardiogram performed 01/03/2023: Mild concentric left ventricular hypertrophy Normal left ventricular wall motion LVEF normal 60-65% Mild aortic valve sclerosis without stenosis Trace aortic regurgitation Mild mitral annular calcification The interatrial septum is intact with no evidence of atrial septal defect as assessed with the injection of agitated saline contrast. LDL cholesterol as measured on 01/04/2023 was 61 mg/dL
[2023-01-06] MEDS: HEPARIN SOD 5,000 UNIT/0.5 ML VIAL SQ SCH ×3 (06:00→20:45)
[2023-01-06] MEDS: ACETAMINOPHEN 325 MG TAB PO PRN ×2 (07:39→20:46)
[2023-01-06] MEDS: LOSARTAN POTASSIUM 50 MG TAB PO SCH ×2 (07:39→20:45)
[2023-01-06] MEDS: ATORVASTATIN 40 MG TAB PO SCH (07:39)
[2023-01-06] MEDS: ASPIRIN 81 MG ECTAB PO SCH (07:39)
--- NOTE | 2023-01-06 13:09 | Hospitalist Progress Note ---
Date of Service January 06, 2023 Assessment & Plan (1) Acute left hemiparesis: (2) Acute CVA (cerebrovascular accident): Plan: Patient is a 62-year-old female with past medical history of migraine, hyperlipidemia presents to the hospital with sharp frontal headache and weakness in left leg and arm On presentation, patient had mild weakness on left arm and leg with ataxia on left arm Patient declined TNK which was recommended by [facility] due to concern for vaginal bleed Following images were reviewed personally: CT scan of the head showed no acute changes. CT angiography of the head and neck were unremarkable and showed no evidence of vascular stenoses or anomalies. MRI of the brain showed a medium-size right parietotemporal stroke with other acute punctate strokes in bioccipital head regions and the right cerebellum. There was no evidence of hemorrhage. Repeat head CT showed previously reported right posterior MCA infarct with associated edema. No hemorrhagic transformation is seen. Echocardiogram results reviewed; EF of 60 to 65%, no evidence of atrial septal defect Currently on aspirin and statin. A1c of 6.4%; Completed permissive hypertension.. Was started on losartan 50 mg twice daily. Blood pressure improved. Continue PT OT Telemetry monitoring. Patient had episode of SVT on injection today.; cardiology reviewed the telemetry. Presence of occult A-fib not excluded. Continue on Lipitor (3) Elevated troponin: Plan: - Initial set is elevated at 255.6 which trended up to 320 and down trended Echocardiogram as above (4) Mass of pancreas: Plan: CT abdomen and pelvis showed 4.3 ill-defined pancreatic head mass resulting in upstream pancreatic duct dilation. Findings suspicious of adenocarcinoma Recommend multiphasic abdominal imaging study with CT or MRI to define pancreatic mass Recommend couple of weeks of stabilization from [employer] perspective and work-up MRI abdomen done on January 04; pancreatic head with central hyper enhancement compatible with malignancy with central necrosis. No vascular involvement seen. GI reviewed the case; patient to need EGD/EUS with FNAC as outpatient. (5) Obesity, morbid, BMI 40.0-49.9: Plan: - Lifestyle modification, diet and weight loss need to be encouraged throughout hospital stay - BMI of 44.1 (6) Anxiety: Plan: - On clonazepam as needed (7) HLD (hyperlipidemia): Plan: Lipid profile reviewed;LDL of 61. TG of 107 Decrease Lipitor to 40 mg once daily based on lipid profile. DVT PPx: -heparin CODE: Full code Time spent evaluating patient, direct bedside care, chart review, placing orders, interpretation of diagnostic studies, discussion with consultants, patient, and family members, as well as other required patient management activities is 60 minutes. Please note the above document was generated using voice recognition software. It may contain grammatical, syntax or spelling errors. Any formal questions or concerns about the content, text or information contained within the body of this dictation should be directly addressed to the provider for clarification Admission and Anticipated Discharge Date Admission Date: January 02, 2023 Subjective Patient seen and examined at bedside. She is comfortable lying on the bed; not in distress. Review of Systems Review of Systems: All systems reviewed & are unremarkable except as noted in Subjective Physical Exam Physical Exam: Constitutional: WD/WN, vitals as above, NAD, sitting up in bed, pleasant, conversing easily Respiratory: normal respiratory effort, lungs clear to auscultation, no wheeze, rales, rhonchi. Normal insp/exp effort, no accessory muscle use Cardiovascular: RRR, no murmur, no edema Vessels: no JVD or carotid bruit Chest: normal inspection of chest Abdomen: normal bowel sounds, soft, nontender, no hepatosplenomegaly Musculoskeletal: no cyanosis or clubbing, extremities motor strength 5/5 Skin: no rashes, warm and dry normal turgor Neurologic: Awake alert oriented x3, cranial nerves II to XII intact. Strength of left upper extremity and lower extremity 4/5. Sensation intact throughout. Psychiatric: A+Ox3, euthymic affect Results & Data Results & Data Vital Signs (Past 12 Hours) Vital Signs Temp Pulse Resp BP Pulse Ox O2 Del Method 01/06/23 11:29 37 C 84 20 120/70 96 Room Air 01/06/23 07:56 36.6 C 79 20 119/78 98 Room Air 01/06/23 03:00 36.6 C 92 H 18 145/85 H 99 Room Air Laboratory Results Laboratory Results WBC 11.30 K/ul (4.8-10.8) H 01/05/23 05:46 RBC 4.70 M/uL (4.20-5.40) 01/05/23 05:46 Hgb 12.5 g/dl (12.0-16.0) 01/05/23 05:46 POC Hgb 12.6 g/dl (12.0-16.0) 01/02/23 08:37 Hct 38.7 % (37.0-47.0) 01/05/23 05:46 POC Hct 37 % (37-47) 01/02/23 08:37 MCV 82.3 fL (80.0-100.0) 01/05/23 05:46 MCH 26.6 pg (25.0-34.0) 01/05/23 05:46 MCHC 32.3 g/dL (32.0-36.0) 01/05/23 05:46 RDW Std Deviation 41.5 fL (36.4-46.3) 01/05/23 05:46 RDW Coeff of Kristin 13.9 % (11.5-14.5) 01/05/23 05:46 Plt Count 294 K/uL (130-400) 01/05/23 05:46 MPV 9.6 fL (9.4-12.4) 01/05/23 05:46 Immature Gran % (Auto) 0.3 % 01/05/23 05:46 Neut % (Auto) 72.7 % 01/05/23 05:46 Lymph % (Auto) 16.0 % 01/05/23 05:46 Trigg % (Auto) 7.0 % 01/05/23 05:46 Eos % (Auto) 3.5 % 01/05/23 05:46 Baso % (Auto) 0.5 % 01/05/23 05:46 Neut # (Auto) 8.22 K/uL (1.40-6.50) H 01/05/23 05:46 Lymph # (Auto) 1.81 K/uL (1.2-3.4) 01/05/23 05:46 Trigg # (Auto) 0.79 K/uL (0.11-0.59) H 01/05/23 05:46 Eos # (Auto) 0.39 K/uL (0-0.50) 01/05/23 05:46 Baso # (Auto) 0.06 K/uL (0-0.2) 01/05/23 05:46 Immature Gran # (Auto) 0.03 K/uL (0.01-0.20) 01/05/23 05:46 Absolute Nucleated RBC Cancelled 01/04/23 04:44 Nucleated RBC % (auto) Cancelled 01/04/23 04:44 Neutrophils % (Manual) Cancelled 01/04/23 04:44 Band Neutrophils % Cancelled 01/04/23 04:44 Lymphocytes % (Manual) Cancelled 01/04/23 04:44 Prolymphocyte % Cancelled 01/04/23 04:44 Reactive Lymphs % (Man) Cancelled 01/04/23 04:44 Monocytes % (Manual) Cancelled 01/04/23 04:44 Eosinophils % (Manual) Cancelled 01/04/23 04:44 Basophils % (Manual) Cancelled 01/04/23 04:44 Metamyelocytes % (Man) Cancelled 01/04/23 04:44 Myelocytes % (Man) Cancelled 01/04/23 04:44 Promyelocytes % (Man) Cancelled 01/04/23 04:44 Blast Cells % (Manual) Cancelled 01/04/23 04:44 Plasma Cell % (Manual) Cancelled 01/04/23 04:44 Other Cells % Cancelled 01/04/23 04:44 Nucleated RBC % Cancelled 01/04/23 04:44 Neutrophils # (Manual) Cancelled 01/04/23 04:44 Band Neutrophils # Cancelled 01/04/23 04:44 Total Absolute Neuts Cancelled 01/04/23 04:44 Lymphocytes # (Manual) Cancelled 01/04/23 04:44 Prolymphocyte # Cancelled 01/04/23 04:44 Reactive Lymphs # Cancelled 01/04/23 04:44 Total Abs Lymphocytes Cancelled 01/04/23 04:44 Monocytes # (Manual) Cancelled 01/04/23 04:44 Eosinophils # (Manual) Cancelled 01/04/23 04:44 Basophils # (Manual) Cancelled 01/04/23 04:44 Metamyelocytes # (Man) Cancelled 01/04/23 04:44 Myelocytes # (Manual) Cancelled 01/04/23 04:44 Promyelocytes # (Man) Cancelled 01/04/23 04:44 Blast Cells # (Man) Cancelled 01/04/23 04:44 Plasma Cell # (Manual) Cancelled 01/04/23 04:44 Other Cells # Cancelled 01/04/23 04:44 Nucleated RBCs # (Man) Cancelled 01/04/23 04:44 Hypersegmented Neuts Cancelled 01/04/23 04:44 Hyposegmented Neuts Cancelled 01/04/23 04:44 Hypogranular Neuts Cancelled 01/04/23 04:44 Large Granular Lymphs Cancelled 01/04/23 04:44 # Lrg Granular Lymphs Cancelled 01/04/23 04:44 Hairy Cells Cancelled 01/04/23 04:44 Smudge Cells Cancelled 01/04/23 04:44 Toxic Granulation Cancelled 01/04/23 04:44 Toxic Vacuolation Cancelled 01/04/23 04:44 Dohle Bodies Cancelled 01/04/23 04:44 Robe Rods Cancelled 01/04/23 04:44 Platelet Estimate Cancelled 01/04/23 04:44 Hypogranular Platelets Cancelled 01/04/23 04:44 Giant Platelets Cancelled 01/04/23 04:44 Platelet Satelliting Cancelled 01/04/23 04:44 RBC Morphology Cancelled 01/04/23 04:44 Polychromasia Cancelled 01/04/23 04:44 Hypochromasia Cancelled 01/04/23 04:44 Poikilocytosis Cancelled 01/04/23 04:44 Basophilic Stippling Cancelled 01/04/23 04:44 Anisocytosis Cancelled 01/04/23 04:44 Microcytosis Cancelled 01/04/23 04:44 Macrocytosis Cancelled 01/04/23 04:44 Spherocytes Cancelled 01/04/23 04:44 Pappenheimer Bodies Cancelled 01/04/23 04:44 Sickle Cells Cancelled 01/04/23 04:44 Target Cells Cancelled 01/04/23 04:44 Tear Drop Cells Cancelled 01/04/23 04:44 Ovalocytes Cancelled 01/04/23 04:44 Stomatocytes Cancelled 01/04/23 04:44 [place] Bodies Cancelled 01/04/23 04:44 Echinocytes Cancelled 01/04/23 04:44 Acanthocytes (Spur) Cancelled 01/04/23 04:44 Rouleaux Cancelled 01/04/23 04:44 RBC Agglutinates Cancelled 01/04/23 04:44 Schistocytes Cancelled 01/04/23 04:44 Sezary Cell Cancelled 01/04/23 04:44 PT 11.5 Seconds (9.0-12.0) 01/02/23 08:32 INR 1.1 (0.9-1.1) 01/02/23 08:32 APTT 26.1 Seconds (21.0-31.0) 01/02/23 08:32 PTT Ratio 0.9 01/02/23 08:32 POC Sodium 137 mmol/L (135-144) 01/02/23 08:37 Sodium 139 mmol/L (136-145) 01/05/23 05:46 POC Potassium 3.9 mmol/L (3.3-5.0) 01/02/23 08:37 Potassium 3.8 mmol/L (3.5-5.1) 01/05/23 05:46 POC Chloride 102 mmol/L (101-112) 01/02/23 08:37 Chloride 106 mmol/L (98-107) 01/05/23 05:46 Carbon Dioxide 27 mmol/L (21-32) 01/05/23 05:46 POC Total CO2 22 mmol/L (24-31) L 01/02/23 08:37 Anion Gap 6 (3-11) 01/05/23 05:46 POC Anion Gap 18.0 mmol/L (16-25) 01/02/23 08:37 POC BUN 11 mg/dl (7-18) 01/02/23 08:37 BUN 7 mg/dl (6-23) 01/05/23 05:46 Creatinine 0.72 mg/dl (0.6-1.2) 01/05/23 05:46 POC Creatinine 0.7 mg/dl (0.6-1.3) 01/02/23 08:37 Est Cr Clr Drug Dosing 110.7 ml/min 01/05/23 05:46 Est GFR ( Amer) 105.5 ml/min 01/05/23 05:46 Est GFR (Non-Af Amer) 91.0 ml/min 01/05/23 05:46 BUN/Creatinine Ratio 9.7 (10-20) L 01/05/23 05:46 Glucose 130 mg/dl (70-99(Fasting)) H 01/05/23 05:46 POC Glucose 189 mg/dl (70-99) H 01/06/23 11:22 POC Glucose (other) 168 mg/dl (70-99) H 01/02/23 08:37 Estimat Average Glucose 137 mg/dl 01/03/23 10:02 Hemoglobin A1c 6.4 % (4.5-5.6) H 01/03/23 10:02 Calcium 9.2 mg/dl (8.6-10.3) 01/05/23 05:46 POC Ioniz Calcium Alex 1.13 mmol/l (1.12-1.32) 01/02/23 08:37 Magnesium 2.0 mg/dl (1.7-2.4) 01/02/23 08:32 Total Bilirubin 0.5 mg/dl (0.2-1.0) 01/02/23 08:32 AST 15 U/L (13-39) 01/02/23 08:32 ALT 13 U/L (7-52) 01/02/23 08:32 Alkaline Phosphatase 83 U/L (34-104) 01/02/23 08:32 Troponin I High Sens 257.1 pg/ml (0-14) H* D 01/03/23 08:29 Total Protein 7.0 gm/dl (6.0-8.3) 01/02/23 08:32 Albumin 3.9 gm/dl (3.4-5.0) 01/02/23 08:32 Globulin 3.1 gm/dl (2.5-4.0) 01/02/23 08:32 Albumin/Globulin Ratio 1.3 (0.9-2) 01/02/23 08:32 Triglycerides 107 mg/dl (0-150) 01/04/23 04:44 Cholesterol 130 mg/dl (0-200) 01/04/23 04:44 LDL Cholesterol, Calc 61 mg/dl 01/04/23 04:44 VLDL Cholesterol, Calc 21 mg/dl (0-30) 01/04/23 04:44 HDL Cholesterol 48 mg/dl 01/04/23 04:44 Cholesterol/HDL Ratio 2.7 (0-5) 01/04/23 04:44 SARS-CoV-2 (PCR) NEGATIVE (Negative) 01/02/23 10:04 Influenza Type A (PCR) Negative (Neg) 01/02/23 10:04 Influenza Type B (PCR) Negative (Neg) 01/02/23 10:04 RSV (RT-PCR) Negative (Neg) 01/02/23 10:04 Blood Parasites ID Cancelled 01/04/23 04:44 Impressions Chest X-Ray 01/02/23 08:17 XR chest 1V portable HISTORY: 62 years-old Female neuro deficit, acute stroke suspected acute strokelike symptoms COMPARISON: None TECHNIQUE: AP view of the chest FINDINGS: Cardiomediastinal and hilar silhouettes are within normal limits. Mild right hemidiaphragmatic elevation. No pneumothorax, pleural effusion, airspace consolidation or pulmonary edema. Degenerative changes of the shoulders and spine. Bilateral shoulder rotator cuff calcific tendinosis. IMPRESSION: No acute process. ACT 112: Negative or not required by law. The above report was generated using voice recognition software. It may contain grammatical, syntax or spelling errors. Electronically signed by: Cuco Morrell M.D. 01/02/2023 10:27 AM Head CTA 01/02/23 08:17 CT head/brain wo con, CT angio neck with con, CT angio head w con CLINICAL HISTORY: 62 years-old Female with neuro deficit, acute stroke suspected. Acute strokelike symptoms TECHNIQUE: Multiple axial CT images of the head were obtained without contrast. CTA head and neck also obtained following the intravenous administration of 108 mL Optiray 320. 3-D coronal and sagittal maps were obtained and submitted for review. All measurements were obtained according to NASCET criteria. A dose lowering technique was utilized adhering to the principles of ALARA. CT DOSE: 2073.47 mGy.cm COMPARISON: None. FINDINGS: CT HEAD: No acute intracranial hemorrhage, midline shift, intracranial mass, hydrocephalus, territorial ischemia or abnormal extra-axial collection. The calvarium is intact. Mild mucosal thickening of the paranasal sinuses. Mastoid air cells are clear. CTA: Dilated pulmonary artery may represent pulmonary arterial hypertension. Atherosclerosis of the thoracic aorta. Patency of the innominate and image subclavian arteries. Common and internal carotid arteries are patent. Mild atherosclerosis of the right carotid bulb. Anterior and middle cerebral arteries are patent. Vertebral arteries are codominant and patent. The basilar and posterior cerebral arteries are patent. Cerebral venous sinuses are patent. No aneurysm, dissection, high-grade stenosis or arterial occlusion identified. No abnormal intracranial enhancement. No pneumothorax. Groundglass densities in the lungs suggestive of atelectasis. Unremarkable soft tissues. Degenerative changes of the cervical spine. IMPRESSION: 1. No acute intracranial abnormality. 2. Unremarkable CTA of the head and neck. ACT 112: Negative or not required by law. The above report was generated using voice recognition software. It may contain grammatical, syntax or spelling errors. Electronically signed by: Cuco Morrell M.D. 01/02/2023 8:53 AM Neck CTA 01/02/23 08:17 CT head/brain wo con, CT angio neck with con, CT angio head w con CLINICAL HISTORY: 62 years-old Female with neuro deficit, acute stroke suspected. Acute strokelike symptoms TECHNIQUE: Multiple axial CT images of the head were obtained without contrast. CTA head and neck also obtained following the intravenous administration of 108 mL Optiray 320. 3-D coronal and sagittal maps were obtained and submitted for review. All measurements were obtained according to NASCET criteria. A dose lowering technique was utilized adhering to the principles of ALARA. CT DOSE: 2073.47 mGy.cm COMPARISON: None. FINDINGS: CT HEAD: No acute intracranial hemorrhage, midline shift, intracranial mass, hydrocephalus, territorial ischemia or abnormal extra-axial collection. The calvarium is intact. Mild mucosal thickening of the paranasal sinuses. Mastoid air cells are clear. CTA: Dilated pulmonary artery may represent pulmonary arterial hypertension. Atherosclerosis of the thoracic aorta. Patency of the innominate and image subclavian arteries. Common and internal carotid arteries are patent. Mild atherosclerosis of the right carotid bulb. Anterior and middle cerebral arteries are patent. Vertebral arteries are codominant and patent. The basilar and posterior cerebral arteries are patent. Cerebral venous sinuses are patent. No aneurysm, dissection, high-grade stenosis or arterial occlusion identified. No abnormal intracranial enhancement. No pneumothorax. Groundglass densities in the lungs suggestive of atelectasis. Unremarkable soft tissues. Degenerative changes of the cervical spine. IMPRESSION: 1. No acute intracranial abnormality. 2. Unremarkable CTA of the head and neck. ACT 112: Negative or not required by law. The above report was generated using voice recognition software. It may contain grammatical, syntax or spelling errors. Electronically signed by: Cuco Morrell M.D. 01/02/2023 8:53 AM Gallbladder Ultrasound 01/02/23 09:34 ULTRASOUND RIGHT UPPER QUADRANT ABDOMEN CLINICAL HISTORY: Postprandial right upper quadrant abdominal pain. COMPARISON STUDY: No priors. TECHNIQUE: Real-time, grayscale, and color flow sonography of the right upper quadrant of the abdomen was performed. Images are reviewed in the transverse and longitudinal planes. FINDINGS: Liver: The liver is mildly enlarged and demonstrates heterogeneously increased echotexture indicating steatosis. There is no intrahepatic biliary ductal dilatation. The main portal vein is patent. Gallbladder: The gallbladder is mildly distended and contains large shadowing gallstones as well as biliary sludge. There is no gallbladder wall thickening or pericholecystic fluid. A sonographic Nunez's sign is reportedly absent. The common bile duct measures up to 0.5 cm in diameter. Pancreas: There is an approximately 5 cm indeterminate hypoechoic density adjacent to pancreatic head. Right kidney: Survey images of the right kidney demonstrate normal size and echotexture. There is no hydronephrosis. Ascites: None. IMPRESSION: 1. There is an approximately 5 cm indeterminant hypoechoic density adjacent to the pancreatic head. Correlation with a contrast-enhanced abdominal CT scan is recommended for further assessment. 2. Cholelithiasis and biliary sludge without sonographic evidence of acute cholecystitis. 3. Hepatomegaly and hepatic steatosis. ACT 112: Negative or not required by law. Electronically signed by: Celestine Gómez M.D. 01/02/2023 12:03 PM Pelvis Ultrasound 01/02/23 11:02 US pelvic complete HISTORY: 62 years-old Female vaginal bleeding postmenopausal acute postmenopausal vaginal bleeding COMPARISON: None TECHNIQUE: Multiple real-time sonographic images of the deep pelvic structures were obtained transabdominally assessing grayscale appearance, color and spectral flow. FINDINGS: Anteflexed uterus measures 8.9 x 3.7 x 4.8 cm. No myometrial mass lesion. Homogeneous echogenic thickening of the endometrium, 1.6 cm. Ovaries are not diagnostically visualized. Limited study secondary to patient body habitus. IMPRESSION: Pathologic thickening of the postmenopausal endometrium. Correlation with tissue sampling recommended. ACT 112: Negative or not required by law. The above report was generated using voice recognition software. It may contain grammatical, syntax or spelling errors. Electronically signed by: Cuco Morrell M.D. 01/02/2023 12:19 PM Abdomen/Pelvis CT 01/02/23 12:[address] WITHOUT CONTRAST CT DOSE: 1493.32 mGy.cm HISTORY: Acute right upper quadrant abdominal pain Eval Pancreatic mass, vaginal bleeding TECHNIQUE: Multiaxial CT images of the abdomen and pelvis were performed without contrast. A dose lowering technique was utilized adhering to the principles of ALARA. COMPARISON STUDY: Abdominal ultrasound of same day FINDINGS: No acute process of the imaged lower chest. Limited study without the use of contrast. Ptosis or pneumoperitoneum. Unremarkable unenhanced spleen, gallbladder and adrenal glands. The patient's cholelithiasis is not identified by ultrasound. Hepatomegaly with hepatic steatosis. No biliary ductal dilation. Mild pancreatic ductal dilation measures up to 6 mm. Ill-defined mass of the pancreatic head is confirmed measuring 4.3 x 3.6 cm. Mild peripancreatic stranding. Subcentimeter peripancreatic and paradise hepatic lymph nodes. The anterior margin of this lesion abuts the adjacent superior mesenteric vein and also abuts the adjacent duodenum which penetrates mild wall thickening. Contrast noted within the renal collecting systems and urinary bladder. No hydronephrosis. Heterogeneous uterus. Atherosclerosis of the aorta. Tiny hiatal hernia. Moderate rectal fecal retention. Colonic diverticulosis. No CT evidence of acute appendicitis. Small fat filled umbilical hernia. No acute fracture. IMPRESSION: 1. Confirmation of the 4.3 cm ill-defined pancreatic head mass resulting in upstream pancreatic ductal dilation. Evaluation is limited without the use of IV contrast, however the imaging characteristics are suspicious for adenocarcinoma. GI consultation with endoscopy and tissue sampling recommended. 2. The pancreatic mass abuts and possibly infiltrates the adjacent duodenum . No obstruction. 3. No evidence of metastatic disease. 4. Hepatic steatosis. ACT 112: Negative or not required by law. The above report was generated using voice recognition software. It may contain grammatical, syntax or spelling errors. Electronically signed by: Cuco Morrell M.D. 01/02/2023 1:35 PM Brain MRI 01/02/23 13:57 MR brain wo con CLINICAL HISTORY: CVA r/o, Left sided weakness, pancreatic mass TECHNIQUE: Multiplanar and multisequence MR images of the brain were obtained without intravenous contrast. Comparison: Comparison is made to CT head 01/02/2023 FINDINGS: Exam is limited by patient motion. There is prominent restricted diffusion in the right parietotemporal region. A few punctate foci of restricted diffusion are also seen in the bilateral occipital lobes and right cerebellum. Matter edema is seen in the corresponding right parietotemporal region. The ventricular system is normal in appearance. No mass is seen. There is no mass effect or midline shift. Evaluation for hemorrhage is highly limited, no leighann hemorrhage is seen. No extra axial fluid collections are seen. The corpus callosum, pituitary gland, and cerebellar tonsils appear grossly unremarkable. Flow voids of the major intracranial arterial vessels are identified. The imaged portions of the paranasal sinuses, mastoid air cells, and orbits are unremarkable. IMPRESSION: Findings are compatible with acute infarct in the right parietal temporal region as well as a few punctate occipital and cerebellar foci of infarct. Evaluation for hemorrhage is highly limited by patient motion however no leighann hemorrhage is seen. ACT 112: Negative or not required by law. Electronically signed by: Janak Joy M.D. 01/02/2023 4:42 PM Abdomen MRI 01/04/23 10:42 MR abdomen wo/w con CLINICAL HISTORY: pancreatic protocol TECHNIQUE: Multiplanar multisequence images were obtained of the abdomen with and without the administration of contrast. COMPARISON: Comparison is made to CT abdomen pelvis 01/02/2023 FINDINGS: Lower chest: No acute abnormality Liver: Hepatic steatosis is noted. Gallbladder and biliary tree: Cholelithiasis is seen without evidence of cholecystitis. No intra- or extrahepatic biliary ductal dilation. Pancreas: There is enlargement of the distal pancreatic duct due to a pancreatic head mass measuring approximately 41 x 36 mm. This mass demonstrates rim enhancement with central hypoenhancement compatible with necrosis. The portal vein and branches of the aorta are not involved. Spleen: Hypoenhancing lesion in the spleen is nonspecific. Adrenals: Unremarkable. Kidneys and ureters: Unremarkable. Bowel: Unremarkable. Lymph nodes Retroperitoneal: Subcentimeter lymph nodes are seen including a 6 mm node adjacent to the pancreatic head mass. Mesenteric: Unremarkable. Peritoneum: Normal Vessels: Unremarkable. Abdominal wall: Unremarkable. Bones: Unremarkable. IMPRESSION: 1. Pancreatic head mass is known to enhance with some central hypoenhancement compatible with malignancy with central necrosis. No vascular involvement is seen. There is a subcentimeter adjacent lymph node. Additional findings are as above. 2. Hepatic steatosis. ACT 112: Negative or not required by law. Electronically signed by: Janak Joy M.D. 01/04/2023 2:[address] 01/04/23 11:01 CT head/brain wo con CLINICAL HISTORY: Recent stroke, complains of headache Technique: Contiguous axial CT images of the head were acquired from the base of the skull to the vertex without intravenous contrast administration. Images were viewed in brain, subdural and bone windows. Automated dose lowering techniques and/or adjustment according to patient size were utilized for this exam. Comparison: Comparison is made to MRI brain 01/02/2023 Findings: Hypodensity in the right posterior MCA territory is compatible with infarct is seen on prior MRI. There is questionable mass effect and minimal midline shift of approximately 2 mm. Imaged portions of the paranasal sinuses and mastoid air cells are clear. The orbits appear normal. There are no acute fractures of the calvaria or scalp swelling. Impression: Findings are compatible with previously noted right posterior MCA territory infarct with associated edema. No hemorrhagic transformation is seen. Punctate additional foci of infarct seen on MRI are not seen on today's exam. ACT 112: Negative or not required by law. Electronically signed by: Janak Joy M.D. 01/04/2023 2:03 PM
--- NOTE | 2023-01-06 16:48 | Cardiology Progress Note ---
Date of Service January 06, 2023 Assessment & Plan (1) Acute CVA (cerebrovascular accident): (2) Acute left hemiparesis: (3) Elevated troponin: (4) HLD (hyperlipidemia): (5) Obesity, morbid, BMI 40.0-49.9: Plan Patient is a 62-year-old female presented acutely with left-sided weakness and findings of a large right temporal and parietal lobe stroke. Echocardiogram demonstrates preserved LV systolic function without wall motion abnormality or significant valvular abnormality. Intra-atrial septum interrogated by agitated saline contrast without shunt Continue aspirin Given total cholesterol of 130 mg /dl, LDL of 61 mg /dl without prior lipid lowering therapy, atorvastatin dose reduced from 80 mg to 40 mg. Continue telemetry monitoring. Start low dose metoprolol succinate 12.5 mg daily. GILBERTO may be indicated for further evaluation , however, would avoid sedation at present and consider later this hospital stay or as outpatient. DVT prophylaxis: Subcutaneous heparin. Admission and Anticipated Discharge Date Admission Date: January 02, 2023 Subjective Patient seen in cardiology follow-up. Telemetry revealed a 21 beat run of narrow complex tachycardia with rate at 180 bpm on 01/06/2022 at 2:32 AM consistent with supraventricular tachycardia. Patient asymptomatic, sleeping at that time. No new complaints otherwise. Physical Exam Constitutional: WD/WN, vitals as above Neck: trachea midline, no thyromegaly Respiratory: normal respiratory effort, lungs clear to auscultation Cardiovascular: RRR, no murmur, no edema Gastrointestinal (Abdomen): normal bowel sounds, soft, nontender, no hepatosplenomegaly Results & Data Vital Signs (Past 12 Hours) Vital Signs Temp Pulse Pulse Resp BP Pulse Ox O2 Del Method 01/06/23 15:52 36.8 C 83 18 117/74 97 Room Air 01/06/23 07:19 85 01/06/23 11:29 37 C 84 20 120/70 96 Room Air 01/06/23 07:56 36.6 C 79 20 119/78 98 Room Air
[2023-01-06] MEDS: ALUMINUM/MAGNESIUM/SIMETH (MAALOX MAX) 30 ML UDC PO PRN (17:06)
[2023-01-06] MEDS: METOPROLOL SUCC 25MG EXT REL TAB PO SCH (17:38)
[2023-01-07] MEDS: ALUMINUM/MAGNESIUM/SIMETH (MAALOX MAX) 30 ML UDC PO PRN (02:28)
[2023-01-07 06:15] LABS: Basophils # (auto) 0.06 K/uL (0-0.2); Basophils % (auto) 0.5 %; Eosinophils # (auto) 0.57 K/uL (0-0.50); Hematocrit (blood only) 36.8 % (37.0-47.0); Immature Granulocytes # (auto) 0.04 K/uL (0.01-0.20); Immature Granulocytes % (auto) 0.4 %; Lymphocytes # (auto) 1.84 K/uL (1.2-3.4); Lymphocytes % (auto) 16.3 %; Mean Corpuscular Hemoglobin 26.6 pg (25.0-34.0); Mean Corpuscular Hgb Conc 32.6 g/dL (32.0-36.0); Mean Corpuscular Volume 81.6 fL (80.0-100.0); Mean Platelet Volume 9.8 fL (9.4-12.4); Monocytes # (auto) 0.81 K/uL (0.11-0.59); Monocytes % (auto) 7.2 %; Neutrophils # (auto) 7.98 K/uL (1.40-6.50); Neutrophils % (auto) 70.6 %; Platelet Count 294 K/uL (130-400); RDW Coefficient of Variation 13.9 % (11.5-14.5); RDW Standard Deviation 40.8 fL (36.4-46.3); Red Blood Count 4.51 M/uL (4.20-5.40)
[2023-01-07 06:32] LABS: BUN Creatinine Ratio 19.7 (10-20); Calcium 9.4 mg/dl (8.6-10.3); Creatinine Clr Calc Pharmacy 120.7 ml/min; Est GFR (African American) 111.3 ml/min; Potassium 4.2 mmol/L (3.5-5.1)
[2023-01-07] MEDS: HEPARIN SOD 5,000 UNIT/0.5 ML VIAL SQ SCH ×3 (06:32→21:52)
[2023-01-07] MEDS: ATORVASTATIN 40 MG TAB PO SCH (08:34)
[2023-01-07] MEDS: LOSARTAN POTASSIUM 50 MG TAB PO SCH ×2 (08:34→20:40)
[2023-01-07] MEDS: ASPIRIN 81 MG ECTAB PO SCH (08:34)
--- NOTE | 2023-01-07 11:07 | Hospitalist Progress Note ---
Date of Service January 07, 2023 Assessment & Plan (1) Acute left hemiparesis: (2) Acute CVA (cerebrovascular accident): Plan: Patient is a 62-year-old female with past medical history of migraine, hyperlipidemia presents to the hospital with sharp frontal headache and weakness in left leg and arm On presentation, patient had mild weakness on left arm and leg with ataxia on left arm Patient declined TNK which was recommended by [facility] due to concern for vaginal bleed Following images were reviewed personally: CT scan of the head showed no acute changes. CT angiography of the head and neck were unremarkable and showed no evidence of vascular stenoses or anomalies. MRI of the brain showed a medium-size right parietotemporal stroke with other acute punctate strokes in bioccipital head regions and the right cerebellum. There was no evidence of hemorrhage. Repeat head CT showed previously reported right posterior MCA infarct with associated edema. No hemorrhagic transformation is seen. Echocardiogram results reviewed; EF of 60 to 65%, no evidence of atrial septal defect Currently on aspirin and statin. A1c of 6.4%; Completed permissive hypertension.. Was started on losartan 50 mg twice daily. Blood pressure improved. Continue PT OT Telemetry monitoring. Continue on Lipitor (3) SVT (supraventricular tachycardia): Plan: During telemetry monitoring; Patient appears to have short runs of atrial tachycardia which terminate on their own Last event was today morning around 9:52 AM Cardiology on board. Plan for GILBERTO tomorrow AM. N.p.o. from midnight (4) Elevated troponin: Plan: - Initial set is elevated at 255.6 which trended up to 320 and down trended Echocardiogram as above (5) Mass of pancreas: Plan: CT abdomen and pelvis showed 4.3 ill-defined pancreatic head mass resulting in upstream pancreatic duct dilation. Findings suspicious of adenocarcinoma Recommend multiphasic abdominal imaging study with CT or MRI to define pancreatic mass Recommend couple of weeks of stabilization from [employer] perspective and work-up MRI abdomen done on January 04; pancreatic head with central hyper enhancement compatible with malignancy with central necrosis. No vascular involvement seen. GI reviewed the case; patient to need EGD/EUS with FNAC as outpatient. (6) Obesity, morbid, BMI 40.0-49.9: Plan: - Lifestyle modification, diet and weight loss need to be encouraged throughout hospital stay - BMI of 44.1 (7) Anxiety: Plan: - On clonazepam as needed (8) HLD (hyperlipidemia): Plan: Lipid profile reviewed;LDL of 61. TG of 107 Decrease Lipitor to 40 mg once daily based on lipid profile. DVT PPx: -heparin CODE: Full code Time spent evaluating patient, direct bedside care, chart review, placing orders, interpretation of diagnostic studies, discussion with consultants, patient, and family members, as well as other required patient management activities is 60 minutes. Please note the above document was generated using voice recognition software. It may contain grammatical, syntax or spelling errors. Any formal questions or concerns about the content, text or information contained within the body of this dictation should be directly addressed to the provider for clarification Admission and Anticipated Discharge Date Admission Date: January 02, 2023 Subjective Patient seen and examined. She is working well with PT OT and appears to be progressing well Review of Systems Review of Systems: All systems reviewed & are unremarkable except as noted in Subjective Physical Exam Physical Exam: Constitutional: WD/WN, vitals as above, NAD, sitting up in bed, pleasant, conversing easily Respiratory: normal respiratory effort, lungs clear to auscultation, no wheeze, rales, rhonchi. Normal insp/exp effort, no accessory muscle use Cardiovascular: RRR, no murmur, no edema Vessels: no JVD or carotid bruit Chest: normal inspection of chest Abdomen: normal bowel sounds, soft, nontender, no hepatosplenomegaly Musculoskeletal: no cyanosis or clubbing, extremities motor strength 5/5 Skin: no rashes, warm and dry normal turgor Neurologic: Awake alert oriented x3, cranial nerves II to XII intact. Strength of left upper extremity and lower extremity 4/5. Sensation intact throughout. Psychiatric: A+Ox3, euthymic affect Results & Data Results & Data Vital Signs (Past 12 Hours) Vital Signs Temp Pulse Pulse Resp BP Pulse Ox O2 Del Method 01/07/23 08:19 36.7 C 83 19 129/64 98 Room Air 01/07/23 07:22 69 01/07/23 03:00 36.4 C L 69 22 147/77 H 98 Room Air 01/07/23 00:00 79 Laboratory Results Laboratory Results WBC 11.30 K/ul (4.8-10.8) H 01/07/23 05:48 RBC 4.51 M/uL (4.20-5.40) 01/07/23 05:48 Hgb 12.0 g/dl (12.0-16.0) 01/07/23 05:48 POC Hgb 12.6 g/dl (12.0-16.0) 01/02/23 08:37 Hct 36.8 % (37.0-47.0) L 01/07/23 05:48 POC Hct 37 % (37-47) 01/02/23 08:37 MCV 81.6 fL (80.0-100.0) 01/07/23 05:48 MCH 26.6 pg (25.0-34.0) 01/07/23 05:48 MCHC 32.6 g/dL (32.0-36.0) 01/07/23 05:48 RDW Std Deviation 40.8 fL (36.4-46.3) 01/07/23 05:48 RDW Coeff of Kristin 13.9 % (11.5-14.5) 01/07/23 05:48 Plt Count 294 K/uL (130-400) 01/07/23 05:48 MPV 9.8 fL (9.4-12.4) 01/07/23 05:48 Immature Gran % (Auto) 0.4 % 01/07/23 05:48 Neut % (Auto) 70.6 % 01/07/23 05:48 Lymph % (Auto) 16.3 % 01/07/23 05:48 [place] % (Auto) 7.2 % 01/07/23 05:48 Eos % (Auto) 5.0 % 01/07/23 05:48 Baso % (Auto) 0.5 % 01/07/23 05:48 Neut # (Auto) 7.98 K/uL (1.40-6.50) H 01/07/23 05:48 Lymph # (Auto) 1.84 K/uL (1.2-3.4) 01/07/23 05:48 [place] # (Auto) 0.81 K/uL (0.11-0.59) H 01/07/23 05:48 Eos # (Auto) 0.57 K/uL (0-0.50) H 01/07/23 05:48 Baso # (Auto) 0.06 K/uL (0-0.2) 01/07/23 05:48 Immature Gran # (Auto) 0.04 K/uL (0.01-0.20) 01/07/23 05:48 Absolute Nucleated RBC Cancelled 01/04/23 04:44 Nucleated RBC % (auto) Cancelled 01/04/23 04:44 Neutrophils % (Manual) Cancelled 01/04/23 04:44 Band Neutrophils % Cancelled 01/04/23 04:44 Lymphocytes % (Manual) Cancelled 01/04/23 04:44 Prolymphocyte % Cancelled 01/04/23 04:44 Reactive Lymphs % (Man) Cancelled 01/04/23 04:44 Monocytes % (Manual) Cancelled 01/04/23 04:44 Eosinophils % (Manual) Cancelled 01/04/23 04:44 Basophils % (Manual) Cancelled 01/04/23 04:44 Metamyelocytes % (Man) Cancelled 01/04/23 04:44 Myelocytes % (Man) Cancelled 01/04/23 04:44 Promyelocytes % (Man) Cancelled 01/04/23 04:44 Blast Cells % (Manual) Cancelled 01/04/23 04:44 Plasma Cell % (Manual) Cancelled 01/04/23 04:44 Other Cells % Cancelled 01/04/23 04:44 Nucleated RBC % Cancelled 01/04/23 04:44 Neutrophils # (Manual) Cancelled 01/04/23 04:44 Band Neutrophils # Cancelled 01/04/23 04:44 Total Absolute Neuts Cancelled 01/04/23 04:44 Lymphocytes # (Manual) Cancelled 01/04/23 04:44 Prolymphocyte # Cancelled 01/04/23 04:44 Reactive Lymphs # Cancelled 01/04/23 04:44 Total Abs Lymphocytes Cancelled 01/04/23 04:44 Monocytes # (Manual) Cancelled 01/04/23 04:44 Eosinophils # (Manual) Cancelled 01/04/23 04:44 Basophils # (Manual) Cancelled 01/04/23 04:44 Metamyelocytes # (Man) Cancelled 01/04/23 04:44 Myelocytes # (Manual) Cancelled 01/04/23 04:44 Promyelocytes # (Man) Cancelled 01/04/23 04:44 Blast Cells # (Man) Cancelled 01/04/23 04:44 Plasma Cell # (Manual) Cancelled 01/04/23 04:44 Other Cells # Cancelled 01/04/23 04:44 Nucleated RBCs # (Man) Cancelled 01/04/23 04:44 Hypersegmented Neuts Cancelled 01/04/23 04:44 Hyposegmented Neuts Cancelled 01/04/23 04:44 Hypogranular Neuts Cancelled 01/04/23 04:44 Large Granular Lymphs Cancelled 01/04/23 04:44 # Lrg Granular Lymphs Cancelled 01/04/23 04:44 Hairy Cells Cancelled 01/04/23 04:44 Smudge Cells Cancelled 01/04/23 04:44 Toxic Granulation Cancelled 01/04/23 04:44 Toxic Vacuolation Cancelled 01/04/23 04:44 Dohle Bodies Cancelled 01/04/23 04:44 Robe Rods Cancelled 01/04/23 04:44 Platelet Estimate Cancelled 01/04/23 04:44 Hypogranular Platelets Cancelled 01/04/23 04:44 Giant Platelets Cancelled 01/04/23 04:44 Platelet Satelliting Cancelled 01/04/23 04:44 RBC Morphology Cancelled 01/04/23 04:44 Polychromasia Cancelled 01/04/23 04:44 Hypochromasia Cancelled 01/04/23 04:44 Poikilocytosis Cancelled 01/04/23 04:44 Basophilic Stippling Cancelled 01/04/23 04:44 Anisocytosis Cancelled 01/04/23 04:44 Microcytosis Cancelled 01/04/23 04:44 Macrocytosis Cancelled 01/04/23 04:44 Spherocytes Cancelled 01/04/23 04:44 Pappenheimer Bodies Cancelled 01/04/23 04:44 Sickle Cells Cancelled 01/04/23 04:44 Target Cells Cancelled 01/04/23 04:44 Tear Drop Cells Cancelled 01/04/23 04:44 Ovalocytes Cancelled 01/04/23 04:44 Stomatocytes Cancelled 01/04/23 04:44 [place] Bodies Cancelled 01/04/23 04:44 Echinocytes Cancelled 01/04/23 04:44 Acanthocytes (Spur) Cancelled 01/04/23 04:44 Rouleaux Cancelled 01/04/23 04:44 RBC Agglutinates Cancelled 01/04/23 04:44 Schistocytes Cancelled 01/04/23 04:44 Sezary Cell Cancelled 01/04/23 04:44 PT 11.5 Seconds (9.0-12.0) 01/02/23 08:32 INR 1.1 (0.9-1.1) 01/02/23 08:32 APTT 26.1 Seconds (21.0-31.0) 01/02/23 08:32 PTT Ratio 0.9 01/02/23 08:32 POC Sodium 137 mmol/L (135-144) 01/02/23 08:37 Sodium 138 mmol/L (136-145) 01/07/23 05:48 POC Potassium 3.9 mmol/L (3.3-5.0) 01/02/23 08:37 Potassium 4.2 mmol/L (3.5-5.1) 01/07/23 05:48 POC Chloride 102 mmol/L (101-112) 01/02/23 08:37 Chloride 105 mmol/L (98-107) 01/07/23 05:48 Carbon Dioxide 28 mmol/L (21-32) 01/07/23 05:48 POC Total CO2 22 mmol/L (24-31) L 01/02/23 08:37 Anion Gap 5 (3-11) 01/07/23 05:48 POC Anion Gap 18.0 mmol/L (16-25) 01/02/23 08:37 POC BUN 11 mg/dl (7-18) 01/02/23 08:37 BUN 13 mg/dl (6-23) 01/07/23 05:48 Creatinine 0.66 mg/dl (0.6-1.2) 01/07/23 05:48 POC Creatinine 0.7 mg/dl (0.6-1.3) 01/02/23 08:37 Est Cr Clr Drug Dosing 120.7 ml/min 01/07/23 05:48 Est GFR ( Amer) 111.3 ml/min 01/07/23 05:48 Est GFR (Non-Af Amer) 96.0 ml/min 01/07/23 05:48 BUN/Creatinine Ratio 19.7 (10-20) 01/07/23 05:48 Glucose 125 mg/dl (70-99(Fasting)) H 01/07/23 05:48 POC Glucose 131 mg/dl (70-99) H 01/07/23 07:36 POC Glucose (other) 168 mg/dl (70-99) H 01/02/23 08:37 Estimat Average Glucose 137 mg/dl 01/03/23 10:02 Hemoglobin A1c 6.4 % (4.5-5.6) H 01/03/23 10:02 Calcium 9.4 mg/dl (8.6-10.3) 01/07/23 05:48 POC Ioniz Calcium Alex 1.13 mmol/l (1.12-1.32) 01/02/23 08:37 Magnesium 2.0 mg/dl (1.7-2.4) 01/02/23 08:32 Total Bilirubin 0.5 mg/dl (0.2-1.0) 01/02/23 08:32 AST 15 U/L (13-39) 01/02/23 08:32 ALT 13 U/L (7-52) 01/02/23 08:32 Alkaline Phosphatase 83 U/L (34-104) 01/02/23 08:32 Troponin I High Sens 257.1 pg/ml (0-14) H* D 01/03/23 08:29 Total Protein 7.0 gm/dl (6.0-8.3) 01/02/23 08:32 Albumin 3.9 gm/dl (3.4-5.0) 01/02/23 08:32 Globulin 3.1 gm/dl (2.5-4.0) 01/02/23 08:32 Albumin/Globulin Ratio 1.3 (0.9-2) 01/02/23 08:32 Triglycerides 107 mg/dl (0-150) 01/04/23 04:44 Cholesterol 130 mg/dl (0-200) 01/04/23 04:44 LDL Cholesterol, Calc 61 mg/dl 01/04/23 04:44 VLDL Cholesterol, Calc 21 mg/dl (0-30) 01/04/23 04:44 HDL Cholesterol 48 mg/dl 01/04/23 04:44 Cholesterol/HDL Ratio 2.7 (0-5) 01/04/23 04:44 SARS-CoV-2 (PCR) NEGATIVE (Negative) 01/02/23 10:04 Influenza Type A (PCR) Negative (Neg) 01/02/23 10:04 Influenza Type B (PCR) Negative (Neg) 01/02/23 10:04 RSV (RT-PCR) Negative (Neg) 01/02/23 10:04 Blood Parasites ID Cancelled 01/04/23 04:44 Impressions Chest X-Ray 01/02/23 08:17 XR chest 1V portable HISTORY: 62 years-old Female neuro deficit, acute stroke suspected acute strokelike symptoms COMPARISON: None TECHNIQUE: AP view of the chest FINDINGS: Cardiomediastinal and hilar silhouettes are within normal limits. Mild right hemidiaphragmatic elevation. No pneumothorax, pleural effusion, airspace consolidation or pulmonary edema. Degenerative changes of the shoulders and spine. Bilateral shoulder rotator cuff calcific tendinosis. IMPRESSION: No acute process. ACT 112: Negative or not required by law. The above report was generated using voice recognition software. It may contain grammatical, syntax or spelling errors. Electronically signed by: Cuco Morrell M.D. 01/02/2023 10:27 AM Head CTA 01/02/23 08:17 CT head/brain wo con, CT angio neck with con, CT angio head w con CLINICAL HISTORY: 62 years-old Female with neuro deficit, acute stroke suspected. Acute strokelike symptoms TECHNIQUE: Multiple axial CT images of the head were obtained without contrast. CTA head and neck also obtained following the intravenous administration of 108 mL Optiray 320. 3-D coronal and sagittal maps were obtained and submitted for review. All measurements were obtained according to NASCET criteria. A dose lowering technique was utilized adhering to the principles of ALARA. CT DOSE: 2073.47 mGy.cm COMPARISON: None. FINDINGS: CT HEAD: No acute intracranial hemorrhage, midline shift, intracranial mass, hydrocephalus, territorial ischemia or abnormal extra-axial collection. The calvarium is intact. Mild mucosal thickening of the paranasal sinuses. Mastoid air cells are clear. CTA: Dilated pulmonary artery may represent pulmonary arterial hypertension. Atherosclerosis of the thoracic aorta. Patency of the innominate and image subclavian arteries. Common and internal carotid arteries are patent. Mild atherosclerosis of the right carotid bulb. Anterior and middle cerebral arteries are patent. Vertebral arteries are codominant and patent. The basilar and posterior cerebral arteries are patent. Cerebral venous sinuses are patent. No aneurysm, dissection, high-grade stenosis or arterial occlusion identified. No abnormal intracranial enhancement. No pneumothorax. Groundglass densities in the lungs suggestive of atelectasis. Unremarkable soft tissues. Degenerative changes of the cervical spine. IMPRESSION: 1. No acute intracranial abnormality. 2. Unremarkable CTA of the head and neck. ACT 112: Negative or not required by law. The above report was generated using voice recognition software. It may contain grammatical, syntax or spelling errors. Electronically signed by: Cuco Morrell M.D. 01/02/2023 8:53 AM Neck CTA 01/02/23 08:17 CT head/brain wo con, CT angio neck with con, CT angio head w con CLINICAL HISTORY: 62 years-old Female with neuro deficit, acute stroke suspected. Acute strokelike symptoms TECHNIQUE: Multiple axial CT images of the head were obtained without contrast. CTA head and neck also obtained following the intravenous administration of 108 mL Optiray 320. 3-D coronal and sagittal maps were obtained and submitted for review. All measurements were obtained according to NASCET criteria. A dose lowering technique was utilized adhering to the principles of ALARA. CT DOSE: 2073.47 mGy.cm COMPARISON: None. FINDINGS: CT HEAD: No acute intracranial hemorrhage, midline shift, intracranial mass, hydrocephalus, territorial ischemia or abnormal extra-axial collection. The calvarium is intact. Mild mucosal thickening of the paranasal sinuses. Mastoid air cells are clear. CTA: Dilated pulmonary artery may represent pulmonary arterial hypertension. Atherosclerosis of the thoracic aorta. Patency of the innominate and image subclavian arteries. Common and internal carotid arteries are patent. Mild atherosclerosis of the right carotid bulb. Anterior and middle cerebral arteries are patent. Vertebral arteries are codominant and patent. The basilar and posterior cerebral arteries are patent. Cerebral venous sinuses are patent. No aneurysm, dissection, high-grade stenosis or arterial occlusion identified. No abnormal intracranial enhancement. No pneumothorax. Groundglass densities in the lungs suggestive of atelectasis. Unremarkable soft tissues. Degenerative changes of the cervical spine. IMPRESSION: 1. No acute intracranial abnormality. 2. Unremarkable CTA of the head and neck. ACT 112: Negative or not required by law. The above report was generated using voice recognition software. It may contain grammatical, syntax or spelling errors. Electronically signed by: Cuco Morrell M.D. 01/02/2023 8:53 AM Gallbladder Ultrasound 01/02/23 09:34 ULTRASOUND RIGHT UPPER QUADRANT ABDOMEN CLINICAL HISTORY: Postprandial right upper quadrant abdominal pain. COMPARISON STUDY: No priors. TECHNIQUE: Real-time, grayscale, and color flow sonography of the right upper quadrant of the abdomen was performed. Images are reviewed in the transverse and longitudinal planes. FINDINGS: Liver: The liver is mildly enlarged and demonstrates heterogeneously increased echotexture indicating steatosis. There is no intrahepatic biliary ductal dilatation. The main portal vein is patent. Gallbladder: The gallbladder is mildly distended and contains large shadowing gallstones as well as biliary sludge. There is no gallbladder wall thickening or pericholecystic fluid. A sonographic Nunez's sign is reportedly absent. The common bile duct measures up to 0.5 cm in diameter. Pancreas: There is an approximately 5 cm indeterminate hypoechoic density adjacent to pancreatic head. Right kidney: Survey images of the right kidney demonstrate normal size and echotexture. There is no hydronephrosis. Ascites: None. IMPRESSION: 1. There is an approximately 5 cm indeterminant hypoechoic density adjacent to the pancreatic head. Correlation with a contrast-enhanced abdominal CT scan is recommended for further assessment. 2. Cholelithiasis and biliary sludge without sonographic evidence of acute cholecystitis. 3. Hepatomegaly and hepatic steatosis. ACT 112: Negative or not required by law. Electronically signed by: Celestine Gómez M.D. 01/02/2023 12:03 PM Pelvis Ultrasound 01/02/23 11:02 US pelvic complete HISTORY: 62 years-old Female vaginal bleeding postmenopausal acute postmenopausal vaginal bleeding COMPARISON: None TECHNIQUE: Multiple real-time sonographic images of the deep pelvic structures were obtained transabdominally assessing grayscale appearance, color and spectral flow. FINDINGS: Anteflexed uterus measures 8.9 x 3.7 x 4.8 cm. No myometrial mass lesion. Homogeneous echogenic thickening of the endometrium, 1.6 cm. Ovaries are not diagnostically visualized. Limited study secondary to patient body habitus. IMPRESSION: Pathologic thickening of the postmenopausal endometrium. Correlation with tissue sampling recommended. ACT 112: Negative or not required by law. The above report was generated using voice recognition software. It may contain grammatical, syntax or spelling errors. Electronically signed by: Cuco Morrell M.D. 01/02/2023 12:19 PM Abdomen/Pelvis CT 01/02/23 12:[address] WITHOUT CONTRAST CT DOSE: 1493.32 mGy.cm HISTORY: Acute right upper quadrant abdominal pain Eval Pancreatic mass, vaginal bleeding TECHNIQUE: Multiaxial CT images of the abdomen and pelvis were performed without contrast. A dose lowering technique was utilized adhering to the principles of ALARA. COMPARISON STUDY: Abdominal ultrasound of same day FINDINGS: No acute process of the imaged lower chest. Limited study without the use of contrast. Ptosis or pneumoperitoneum. Unremarkable unenhanced spleen, gallbladder and adrenal glands. The patient's cholelithiasis is not identified by ultrasound. Hepatomegaly with hepatic steatosis. No biliary ductal dilation. Mild pancreatic ductal dilation measures up to 6 mm. Ill-defined mass of the pancreatic head is confirmed measuring 4.3 x 3.6 cm. Mild peripancreatic stranding. Subcentimeter peripancreatic and paradise hepatic lymph nodes. The anterior margin of this lesion abuts the adjacent superior mesenteric vein and also abuts the adjacent duodenum which penetrates mild wall thickening. Contrast noted within the renal collecting systems and urinary bladder. No hydronephrosis. Heterogeneous uterus. Atherosclerosis of the aorta. Tiny hiatal hernia. Moderate rectal fecal retention. Colonic diverticulosis. No CT evidence of acute appendicitis. Small fat filled umbilical hernia. No acute fracture. IMPRESSION: 1. Confirmation of the 4.3 cm ill-defined pancreatic head mass resulting in upstream pancreatic ductal dilation. Evaluation is limited without the use of IV contrast, however the imaging characteristics are suspicious for adenocarcinoma. GI consultation with endoscopy and tissue sampling recommended. 2. The pancreatic mass abuts and possibly infiltrates the adjacent duodenum . No obstruction. 3. No evidence of metastatic disease. 4. Hepatic steatosis. ACT 112: Negative or not required by law. The above report was generated using voice recognition software. It may contain grammatical, syntax or spelling errors. Electronically signed by: Cuco Morrell M.D. 01/02/2023 1:35 PM Brain MRI 01/02/23 13:57 MR brain wo con CLINICAL HISTORY: CVA r/o, Left sided weakness, pancreatic mass TECHNIQUE: Multiplanar and multisequence MR images of the brain were obtained without intravenous contrast. Comparison: Comparison is made to CT head 01/02/2023 FINDINGS: Exam is limited by patient motion. There is prominent restricted diffusion in the right parietotemporal region. A few punctate foci of restricted diffusion are also seen in the bilateral occipital lobes and right cerebellum. Matter edema is seen in the corresponding right parietotemporal region. The ventricular system is normal in appearance. No mass is seen. There is no mass effect or midline shift. Evaluation for hemorrhage is highly limited, no leighann hemorrhage is seen. No extra axial fluid collections are seen. The corpus callosum, pi tuitary gland, and cerebellar tonsils appear grossly unremarkable. Flow voids of the major intracranial arterial vessels are identified. The imaged portions of the paranasal sinuses, mastoid air cells, and orbits are unremarkable. IMPRESSION: Findings are compatible with acute infarct in the right parietal temporal region as well as a few punctate occipital and cerebellar foci of infarct. Evaluation for hemorrhage is highly limited by patient motion however no leighann hemorrhage is seen. ACT 112: Negative or not required by law. Electronically signed by: Janak Joy M.D. 01/02/2023 4:42 PM Abdomen MRI 01/04/23 10:42 MR abdomen wo/w con CLINICAL HISTORY: pancreatic protocol TECHNIQUE: Multiplanar multisequence images were obtained of the abdomen with and without the administration of contrast. COMPARISON: Comparison is made to CT abdomen pelvis 01/02/2023 FINDINGS: Lower chest: No acute abnormality Liver: Hepatic steatosis is noted. Gallbladder and biliary tree: Cholelithiasis is seen without evidence of cholecystitis. No intra- or extrahepatic biliary ductal dilation. Pancreas: There is enlargement of the distal pancreatic duct due to a pancreatic head mass measuring approximately 41 x 36 mm. This mass demonstrates rim enhancement with central hypoenhancement compatible with necrosis. The portal vein and branches of the aorta are not involved. Spleen: Hypoenhancing lesion in the spleen is nonspecific. Adrenals: Unremarkable. Kidneys and ureters: Unremarkable. Bowel: Unremarkable. Lymph nodes Retroperitoneal: Subcentimeter lymph nodes are seen including a 6 mm node adjacent to the pancreatic head mass. Mesenteric: Unremarkable. Peritoneum: Normal Vessels: Unremarkable. Abdominal wall: Unremarkable. Bones: Unremarkable. IMPRESSION: 1. Pancreatic head mass is known to enhance with some central hypoenhancement compatible with malignancy with central necrosis. No vascular involvement is seen. There is a subcentimeter adjacent lymph node. Additional findings are as above. 2. Hepatic steatosis. ACT 112: Negative or not required by law. Electronically signed by: Janak Joy M.D. 01/04/2023 2:[address] 01/04/23 11:01 CT head/brain wo con CLINICAL HISTORY: Recent stroke, complains of headache Technique: Contiguous axial CT images of the head were acquired from the base of the skull to the vertex without intravenous contrast administration. Images were viewed in brain, subdural and bone windows. Automated dose lowering techniques and/or adjustment according to patient size were utilized for this exam. Comparison: Comparison is made to MRI brain 01/02/2023 Findings: Hypodensity in the right posterior MCA territory is compatible with infarct is seen on prior MRI. There is questionable mass effect and minimal midline shift of approximately 2 mm. Imaged portions of the paranasal sinuses and mastoid air cells are clear. The orbits appear normal. There are no acute fractures of the calvaria or scalp swelling. Impression: Findings are compatible with previously noted right posterior MCA territory infarct with associated edema. No hemorrhagic transformation is seen. Punctate additional foci of infarct seen on MRI are not seen on today's exam. ACT 112: Negative or not required by law. Electronically signed by: Janak Joy M.D. 01/04/2023 2:03 PM
--- NOTE | 2023-01-07 14:16 | Cardiology Progress Note ---
Date of Service January 07, 2023 Assessment & Plan (1) Acute CVA (cerebrovascular accident): (2) Paroxysmal atrial flutter: (3) Obesity, morbid, BMI 40.0-49.9: Plan Patient is a 62-year-old female presented acutely with left-sided weakness and findings of a large right temporal and parietal lobe stroke. A few punctate foci of restricted diffusion are also seen in the bilateral occipital lobes and the right cerebellum. Echocardiogram demonstrates preserved LV systolic function without wall motion abnormality or significant valvular abnormality. Intra-atrial septum interrogated by agitated saline contrast without shunt. -Findings of infarcts however in multiple cerebral territories suggest cardioembolic stroke. Per review of rhythm strips of most recent episodes of narrow complex tachycardia that took place on 01/06 and 01/07, rhythm strips are felt to be consistent with paroxysmal atrial flutter. -Plan to proceed with a transesophageal echocardiogram on 01/08/2023 for further evaluation of cardioembolic source of stroke, the aortic arch will be investigated as well at the time of the study. -We will continue to monitor her on telemetry. -I discussed her case by phone with Dr. Saab who had seen her in neurology consultation. The right temporal infarct was a large infarct, and both of us agreed that this is at risk for hemorrhagic conversion. After discussion and review of her case, it is felt that anticoagulation is likely indicated given the findings of arrhythmia on telemetry, but would wait 2 weeks prior to initiation in effort to reduce the risk of hemorrhagic conversion. Her initial event took place on 01/02/2023. For now, continue aspirin 81 mg daily. We will plan on transitioning to a direct oral anticoagulant, likely Eliquis at the 2-week nicolas. Given total cholesterol of 130 mg /dl, LDL of 61 mg /dl without prior lipid lowering therapy, atorvastatin dose reduced from 80 mg to 40 mg. Continue low-dose metoprolol. Patient agreeable to GILBERTO which is tentatively planned for tomorrow. DVT prophylaxis: Subcutaneous heparin. Admission and Anticipated Discharge Date Admission Date: January 02, 2023 Subjective Patient seen in cardiology follow-up. Mentation continues to improve every day that I have seen her. She describes that her left upper and lower extremity weakness and sensation have improved over the last few days. Per review of telemetry, this morning, 01/07/2023 at 9:52 AM she had another brief episode of narrow complex tachycardia rate ranging 150 to 180 bpm. Morphology was relatively similar to a recent episode on 01/06/2023 at 2:32 AM. The patient did have subjective palpitations with a sensation of rapid heartbeat at the base of her neck this morning at the time of the 9:52 AM episode. It only lasted less than 10 seconds with spontaneous offset to sinus rhythm. Review of Systems Review of Systems: All systems reviewed & are unremarkable except as noted in HPI & below Physical Exam Constitutional: WD/WN, vitals as above Neck: trachea midline, no thyromegaly Respiratory: normal respiratory effort, lungs clear to auscultation Cardiovascular: RRR, no murmur, no edema Gastrointestinal (Abdomen): normal bowel sounds, soft, nontender, no hepatosplenomegaly Results & Data Vital Signs (Past 12 Hours) Vital Signs Temp Pulse Pulse Resp BP Pulse Ox O2 Del Method 01/07/23 12:01 36.8 C 79 21 120/77 95 Room Air 01/07/23 08:19 36.7 C 83 19 129/64 98 Room Air 01/07/23 07:22 69 01/07/23 03:00 36.4 C L 69 22 147/77 H 98 Room Air
--- NOTE | 2023-01-07 16:34 | Communication Note ---
Date of Service: January 07, 2023 Informed consent for transesophageal echocardiogram obtained. Form completed and placed on patient's chart.
[2023-01-07] MEDS: METOPROLOL SUCC 25MG EXT REL TAB PO SCH (17:43)
[2023-01-07] MEDS: clonazePAM 0.5 MG TAB PO PRN (20:43)
[2023-01-07] MEDS: ACETAMINOPHEN 325 MG TAB PO PRN (20:43)
[2023-01-08] MEDS: ACETAMINOPHEN 325 MG TAB PO PRN (04:11)
[2023-01-08] MEDS: HEPARIN SOD 5,000 UNIT/0.5 ML VIAL SQ SCH (05:24)
[2023-01-08 06:20] LABS: Albumin Globulin Ratio 1.2 (0.9-2); BUN Creatinine Ratio 22.6 (10-20); Bilirubin,Total 0.4 mg/dl (0.2-1.0); Calcium 9.6 mg/dl (8.6-10.3); Creatinine Clr Calc Pharmacy 128.5 ml/min; Est GFR (African American) 113.6 ml/min; Globulin 3.3 gm/dl (2.5-4.0); Potassium 4.1 mmol/L (3.5-5.1); Total Protein 7.3 gm/dl (6.0-8.3)
[2023-01-08 06:26] LABS: Basophils # (auto) 0.06 K/uL (0-0.2); Basophils % (auto) 0.6 %; Eosinophils # (auto) 0.51 K/uL (0-0.50); Eosinophils % (auto) 4.8 %; Hematocrit (blood only) 39.4 % (37.0-47.0); Hemoglobin 12.7 g/dl (12.0-16.0); Immature Granulocytes # (auto) 0.03 K/uL (0.01-0.20); Immature Granulocytes % (auto) 0.3 %; Lymphocytes # (auto) 2.02 K/uL (1.2-3.4); Lymphocytes % (auto) 18.9 %; Mean Corpuscular Hemoglobin 26.4 pg (25.0-34.0); Mean Corpuscular Hgb Conc 32.2 g/dL (32.0-36.0); Mean Corpuscular Volume 81.9 fL (80.0-100.0); Mean Platelet Volume 9.6 fL (9.4-12.4); Monocytes % (auto) 6.5 %; Neutrophils # (auto) 7.37 K/uL (1.40-6.50); Neutrophils % (auto) 68.9 %; Platelet Count 338 K/uL (130-400); RDW Coefficient of Variation 13.9 % (11.5-14.5); RDW Standard Deviation 41.1 fL (36.4-46.3); Red Blood Count 4.81 M/uL (4.20-5.40); White Blood Count 10.69 K/ul (4.8-10.8)
[2023-01-08] MEDS ORDERED: LIDOCAINE 2% 2 ML VIAL/AMP(20MG/ML) INFIL ONE (07:02)
[2023-01-08] MEDS ORDERED: PROPOFOL IV EMULSION 10 MG/ML 20 ML VIAL IV ONE ×3 (07:02→07:39)
--- NOTE | 2023-01-08 07:03 | Anesthesiology Consultation ---
Date of Service January 08, 2023 History Surgery Operation Date: 01/08/23 07:15 Proposed Procedures p Transesophageal Echo w/Anesthesia - Valdemar Urban DO Height/Weight Height: 5 ft 6 in Weight: 122 kg Allergies Allergy/AdvReac Type Severity Reaction Status Date / Time No Known Allergies Allergy Unverified 01/02/23 15:45 Medications Home Medications Medication Instructions Recorded Confirmed Last Taken clonazepam 0.5 mg tablet 0.5 mg PO BID PRN Anxiety 01/02/23 01/02/23 Unknown meloxicam 7.5 mg tablet 7.5 mg PO DAILY PRN Pain 01/02/23 01/02/23 Unknown nitroglycerin 0.3 mg sublingual 0.3 mg sublingual UD 01/02/23 01/02/23 Unknown tablet Active Medications Generic Name Dose Route Start Last Admin Trade Name Freq PRN Reason Stop Dose Admin Acetaminophen 650 mg 01/02/23 20:11 01/08/23 04:11 Acetaminophen 325 Mg Tab PO 02/01/23 20:10 650 mg Q4H PRN Administration Pain or Fever Al Hydrox/Mg Hydrox/Simethicone 30 ml 01/02/23 20:24 01/07/23 02:28 Aluminum/Magnesium/Simeth (Maalox Max) 30 Ml Udc PO 02/01/23 20:23 30 ml Q6H PRN Administration Indigestion Aspirin 81 mg 01/03/23 09:00 01/07/23 08:34 Aspirin 81 Mg Ectab PO 02/02/23 08:59 81 mg QAM RAMON Administration Atorvastatin Calcium 40 mg 01/07/23 09:00 01/07/23 08:34 Atorvastatin 40 Mg Tab PO 02/06/23 08:59 40 mg QAM RAMON Administration Clonazepam 0.5 mg 01/02/23 17:01 01/07/23 20:43 Clonazepam 0.5 Mg Tab PO 02/01/23 17:00 0.5 mg BID PRN Administration Anxiety Heparin Sodium (Porcine) 5,000 units 01/03/23 22:00 01/08/23 05:24 Heparin Sod 5,000 Unit/0.5 Ml Vial SQ 02/02/23 21:59 Not Given Q8 RAMON Losartan Potassium 50 mg 01/04/23 13:10 01/07/23 20:40 Losartan Potassium 50 Mg Tab PO 02/03/23 13:09 50 mg BID RAMON Administration Metoprolol Succinate 12.5 mg 01/06/23 17:00 01/07/23 17:43 Metoprolol Succ 25mg Ext Rel Tab PO 02/05/23 16:59 12.5 mg DAILY@1700 RAMON Administration Ondansetron HCl 4 mg 01/04/23 01:39 01/04/23 13:28 Ondansetron Inj 2 Mg/Ml 2 Ml Vial IV 02/03/23 01:38 4 mg Q6H PRN Administration Nausea And Vomiting Past Medical History Medical History Anxiety HLD (hyperlipidemia) Hx of mammogram Obesity, morbid, BMI 40.0-49.9 Past Family History Family History Father , age 64 prostate cancer Prostate cancer Grandmother (Paternal) Cancer Breast cancer Past Surgical History Surgical History Hx of colonoscopy Social History Smoking Status: Never smoker Do You Dip or Chew Tobacco: No Hx Alcohol Use: Yes alcohol intake frequency: holidays/special occasions only Hx Substance Use: No Physical Exam Vital Signs Last Vital Signs Temp 36.7 C 01/08/23 02:55 Pulse 59 L 01/08/23 02:55 Resp 16 01/08/23 02:55 BP 125/67 01/08/23 02:55 Pulse Ox 97 01/08/23 02:55 O2 Del Method Room Air 01/08/23 02:55 Testing Laboratory Results 01/08/23 05:42 01/08/23 05:42 PT 11.5 Seconds (9.0-12.0) 01/02/23 08:32 INR 1.1 (0.9-1.1) 01/02/23 08:32 APTT 26.1 Seconds (21.0-31.0) 01/02/23 08:32 Hemoglobin A1c 6.4 % (4.5-5.6) H 01/03/23 10:02 01/07/23 20:08 POC Glucose 183 H
--- NOTE | 2023-01-08 07:10 | History & Physical Bridge Note ---
Date of Service January 08, 2023 History & Physical Bridge Note I have examined the patient, reviewed the History & Physical and in the interval since the performance of the History & Physical I have noted the following changes of clinical significance: no changes noted.
[2023-01-08] MEDS ORDERED: BENZOCAINE/TETRACAIN/BUTAM 50 APPLN/5 GM CAN EXT ONE (07:18)
--- NOTE | 2023-01-08 08:22 | Anesthesiology Progress Note ---
Date of Service January 08, 2023 Anesthesia Post Procedure Vital Signs Vital Signs: Temp Pulse Pulse Resp BP Pulse Ox O2 Del Method 01/08/23 08:15 66 18 124/74 95 Room Air 01/08/23 08:02 73 18 113/72 95 Room Air 01/08/23 07:10 68 18 146/68 H 98 Room Air 01/08/23 02:55 36.7 C 59 L 16 125/67 97 Room Air 01/07/23 23:12 72 01/07/23 22:50 36.5 C 72 20 123/86 96 Room Air 01/07/23 19:43 36.6 C 83 18 167/84 H 98 Room Air 01/07/23 15:52 36.7 C 73 18 130/71 97 Room Air 01/07/23 14:52 86 01/07/23 12:01 36.8 C 79 21 120/77 95 Room Air Transfer of Care Handoff Completed per policy Notes Mental Status: alert / awake / arousable and participated in evaluation Nausea / Vomiting: adequately controlled Pain: adequately controlled Airway Patency, RR, SpO2: stable & adequate BP & HR: stable & adequate Hydration State: stable & adequate Anesthetic Complications: no major complications apparent and Pt Satisfied with anesthetic care
--- NOTE | 2023-01-08 08:22 | Post Operative Brief Note ---
Cardiology Brief Post Op Date of Surgery January 08, 2023 Pre & Post Diagnosis Operation Date: 01/08/23 07:15 Preprocedure diagnosis: Suspected embolic etiology of stroke, assess for cardiac source Post procedure diagnosis: No cardiac source of embolism identified Procedure Transesophageal echocardiogram procedure: The patient's vital signs were monitored in the standard fashion. After informed consent was obtained a timeout was performed the patient was sedated with the assistance of the anesthesia service. Mild focal posterior mitral annular calcification was present. Mild aortic valve sclerosis without stenosis was present. Left ventricular systolic function is normal. The left atrial appendage and left atrium are well visualized with no evidence of thrombus. The interatrial septum is intact with no interatrial shunt detected. The visualized portion of the descending thoracic aorta, aortic arch, aortic root, or without atherosclerosis. Conclusion: Working diagnosis is embolic stroke perhaps related to paroxysmal atrial flutter. No left atrial appendage thrombus observed. Administration Specialist DO Assistant Tracee Livingston, KEN Estimated Blood Loss 0 Findings Consistent with Post-Op Diagnosis Anesthesia Type MAC Complications none
--- NOTE | 2023-01-08 08:33 | Cardiology Progress Note ---
Date of Service January 08, 2023 Assessment & Plan (1) Acute CVA (cerebrovascular accident): Plan: -Patient is a 62-year-old female presented acutely with left-sided weakness and findings of a large right temporal and parietal lobe stroke. A few punctate foci of restricted diffusion are also seen in the bilateral occipital lobes and the right cerebellum. -Transesophageal echocardiogram performed 01/08/2023 with no left atrial or left atrial appendage thrombus, intact interatrial septum, no significant atherosclerosis noted in the visualized portions of the descending thoracic aorta or aortic arch. -I discussed her case by phone with Dr. Saab on 01/07/2023 who had seen her in neurology consultation. The right temporal infarct was a large infarct, and both of us agreed that this is at risk for hemorrhagic conversion. After discussion and review of her case, it is felt that anticoagulation is likely indicated given the findings of arrhythmia suspicious for atrial flutter on telemetry, but would wait 2 weeks prior to initiation in effort to reduce the r isk of hemorrhagic conversion. Her initial event took place on 01/02/2023. -Besides her risk of hemorrhagic transformation of her stroke being a barrier to placing her anticoagulation, she also has a history of intermittent vaginal bleeding for the last year. She had significant bleeding about a year ago and occasional spotting in the interim. Ultrasound performed this admission revealed thickening of the endometrium and tissue sampling recommended in the radiology report. For now, continue aspirin 81 mg daily. We will plan on transitioning to a direct oral anticoagulant, likely Eliquis at the 2-week nicolas with caution with regards to her history of vaginal bleeding, and will need gynecology follow-up. Given total cholesterol of 130 mg /dl, LDL of 61 mg /dl without prior lipid lowering therapy, atorvastatin dose reduced from 80 mg to 40 mg. (2) Paroxysmal atrial flutter: Plan: - Brief episodes of narrow complex tachycardia consistent with atrial flutter. -Increase metoprolol to 25 mg daily -Continue aspirin 81 mg daily for now, with plans to transition to anticoagulation, likely Eliquis if affordable at the 2-week interval post stroke. (3) Vaginal bleeding: Plan: - Gynecology follow-up recommended as noted above (4) Mass of pancreas: Plan: - US with plans for tissue sampling planned by GI perhaps in January if medically stable. Anticoagulation can be interrupted for this procedure. Stable from cardiology standpoint for transfer to rehab. Plan Admission and Anticipated Discharge Date Admission Date: January 02, 2023 Subjective Patient seen prior to, during, post transesophageal echocardiogram. She did well overnight. Mentating well this morning. Sinus rhythm was present on the playground monitor when she arrived for the transesophageal echocardiogram this morning. State place without complications as noted below. Physical Exam Constitutional: WD/WN, vitals as above Eyes: PERRL, conjunctivae normal, anicteric sclerae Neck: trachea midline, no thyromegaly Respiratory: normal respiratory effort, lungs clear to auscultation Cardiovascular: RRR, no murmur, no edema Gastrointestinal (Abdomen): normal bowel sounds, soft, nontender, no hepatosplenomegaly Neurologic: Mild residual left upper and lower extremity weakness, mild expressive aphasia, improving Results & Data Vital Signs (Past 12 Hours) Vital Signs Temp Pulse Pulse Resp BP Pulse Ox O2 Del Method 01/08/23 08:15 66 18 124/74 95 Room Air 01/08/23 08:02 73 18 113/72 95 Room Air 01/08/23 07:10 68 18 146/68 H 98 Room Air 01/08/23 02:55 36.7 C 59 L 16 125/67 97 Room Air 01/07/23 23:12 72 01/07/23 22:50 36.5 C 72 20 123/86 96 Room Air Laboratory Results Cardiac Enzymes 01/08/23 Range/Units 05:42 AST 19 (13-39) U/L CBC 01/08/23 Range/Units 05:42 WBC 10.69 (4.8-10.8) K/ul RBC 4.81 (4.20-5.40) M/uL Hgb 12.7 (12.0-16.0) g/dl Hct 39.4 (37.0-47.0) % Plt Count 338 (130-400) K/uL Neut # (Auto) 7.37 H (1.40-6.50) K/uL Lymph # (Auto) 2.02 (1.2-3.4) K/uL Baker # (Auto) 0.70 H (0.11-0.59) K/uL Eos # (Auto) 0.51 H (0-0.50) K/uL Baso # (Auto) 0.06 (0-0.2) K/uL Comprehensive Metabolic Panel 01/08/23 Range/Units 05:42 Sodium 137 (136-145) mmol/L Potassium 4.1 (3.5-5.1) mmol/L Chloride 105 (98-107) mmol/L Carbon Dioxide 24 (21-32) mmol/L BUN 14 (6-23) mg/dl Creatinine 0.62 (0.6-1.2) mg/dl Glucose 128 H (70-99(Fasting)) mg/dl Calcium 9.6 (8.6-10.3) mg/dl AST 19 (13-39) U/L ALT 27 (7-52) U/L Alkaline Phosphatase 89 (34-104) U/L Total Protein 7.3 (6.0-8.3) gm/dl Albumin 4.0 (3.4-5.0) gm/dl Intake and Output 01/07/23 01/08/23 01/08/23 22:59 06:59 14:59 Intake Total 240 / 240 Balance 240 / 240 Intake: Oral 240 / 240 Other: Other Intake Source NPO # Unmeasured Voids 4 Weight 122 kg 122 kg Weight Measurement Method Built in [facility] Patient Weight 01/09/23 06:59 Weight 122 kg
[2023-01-08] MEDS ORDERED: METOPROLOL SUCC 25MG EXT REL TAB PO SCH (09:00)
[2023-01-08] MEDS: ATORVASTATIN 40 MG TAB PO SCH (09:33)
[2023-01-08] MEDS: ASPIRIN 81 MG ECTAB PO SCH (09:33)
[2023-01-08] MEDS: LOSARTAN POTASSIUM 50 MG TAB PO SCH (09:33)
--- NOTE | 2023-01-08 10:30 | Hospitalist Progress Note ---
Date of Service January 08, 2023 Assessment & Plan (1) Acute left hemiparesis: (2) Acute CVA (cerebrovascular accident): Plan: per Dr. Byrne's notes with addendum: Patient is a 62-year-old female with past medical history of migraine, hyperlipidemia presents to the hospital with sharp frontal headache and weakness in left leg and arm On presentation, patient had mild weakness on left arm and leg with ataxia on left arm Patient declined TNK which was recommended by [facility] due to concern for vaginal bleed Following images were reviewed personally: CT scan of the head showed no acute changes. CT angiography of the head and neck were unremarkable and showed no evidence of vascular stenoses or anomalies. MRI of the brain showed a medium-size right parietotemporal stroke with other acute punctate strokes in bioccipital head regions and the right cerebellum. There was no evidence of hemorrhage. Repeat head CT showed previously reported right posterior MCA infarct with associated edema. No hemorrhagic transformation is seen. Echocardiogram results reviewed; EF of 60 to 65%, no evidence of atrial septal defect Currently on aspirin and statin. A1c of 6.4%; Completed permissive hypertension.. Was started on losartan 50 mg twice daily. Blood pressure improved. Continue on Lipitor 01/08 per Cardiology and Neurology service, acute CVA likel cardioembolic etiology in light of atrial flutter episodes on telemetry continue ASA for now, then transition to Eliquis in 2 weeks to prevent hemorrhagic transformation (3) Paroxysmal atrial flutter: Plan: noted while on tele s/p GILBERTO on January 08, 2023: no left atrial or left atrial appendage thrombus, intact interatrial septum, no significant atherosclerosis noted in the visualized portions of the descending thoracic aorta or aortic arch. Cardiology service recommendations: For now, continue aspirin 81 mg daily. We will plan on transitioning to a direct oral anticoagulant, likely Eliquis at the 2-week nicolas with caution with regards to her history of vaginal bleeding, and will need gynecology follow-up. -Increase metoprolol to 25 mg daily (4) Elevated troponin: Plan: - Initial set is elevated at 255.6 which trended up to 320 and down trended Echocardiogram as above (5) Mass of pancreas: Plan: CT abdomen and pelvis showed 4.3 ill-defined pancreatic head mass resulting in upstream pancreatic duct dilation. Findings suspicious of adenocarcinoma Recommend multiphasic abdominal imaging study with CT or MRI to define pancreatic mass Recommend couple of weeks of stabilization from [employer] perspective and work-up MRI abdomen done on January 04; pancreatic head with central hyper enhancement compatible with malignancy with central necrosis. No vascular involvement seen. GI reviewed the case; patient to need EGD/EUS with FNAC as outpatient. ff up with Oncologist and GI as outpatient (6) Obesity, morbid, BMI 40.0-49.9: Plan: - Lifestyle modification, diet and weight loss need to be encouraged throughout hospital stay - BMI of 44.1 (7) Anxiety: Plan: - On clonazepam as needed (8) HLD (hyperlipidemia): Plan: Lipid profile reviewed;LDL of 61. TG of 107 Decrease Lipitor to 40 mg once daily based on lipid profile. DVT PPx: -heparin CODE: Full code Disposition transfer to inpatient Rehab Admission and Anticipated Discharge Date Admission Date: January 02, 2023 Subjective ff up for acute cva, etc seen resting in bed s/p GILBERTO states she feels fine overall has some post nasal drip no chest pain, dyspnea, palpitations, dizziness able to move left side better able to walk with a walker no dysphagia no other new neuro symptoms no other new symptoms states she is ready for discharge today to [facility] at bedside agreeable Review of Systems Review of Systems: all noted and negative except for above Physical Exam Physical Exam: General- oriented x 3, not in distress, speaks in sentences with no effort or accessory muscle use Eyes- anicteric Neck- no JVD Lungs- clear breath sounds bilaterally, no rales/wheezes Heart- normal rate, regular rhythm; no murmurs Abdomen- normal bowel sounds, nondistended, soft, nontender Extremities- no pretibial edema, no calf tenderness Neuro- alert, oriented x 3; mild L sided weakness- no gross focal neurologic deficits Skin- warm & dry Results & Data Results & Data Vital Signs (Past 12 Hours) Vital Signs Temp Pulse Pulse Resp BP Pulse Ox O2 Del Method 01/08/23 09:01 36.7 C 74 18 138/63 98 Room Air 01/08/23 08:32 36.7 C 73 18 136/82 97 Room Air 01/08/23 08:42 62 01/08/23 08:17 36.8 C 64 18 127/55 L 96 Room Air 01/08/23 08:15 66 18 124/74 95 Room Air 01/08/23 08:02 73 18 113/72 95 Room Air 01/08/23 07:10 68 18 146/68 H 98 Room Air 01/08/23 02:55 36.7 C 59 L 16 125/67 97 Room Air 01/07/23 23:12 72 01/07/23 22:50 36.5 C 72 20 123/86 96 Room Air all noted and reviewed including below
--- NOTE | 2023-01-08 10:42 | Discharge Summary ---
Discharge Summary Date of Service January 08, 2023 Notes For Next Care Provider Transition from Aspirin to Eliquis in 2 weeks. Needs to ff up with GI for further work up of newly diagnosed pancreatic mass. Please refer to assessment and plan below for full details. Medication Changes From Visit ASA 81mg po daily Lipitor 40mg po daily Losartan 50 mg BID Metoprolol XL 25mg po daily Heparin SC q8h x 14 days Admission HPI Per Admitting Provider This is a 62-year-old female with PMHx of morbid obesity with a BMI of 44, HLD, who presents to the hospital with acute onset of left-sided weakness and left- sided hand paresthesias. She felt left arm weakness and numbness after waking up this morn around 9am. Last time known well was earlier in the morning when she was up and using the bathroom, and was up 3 x last night to use the bathroom which was also normal. She noticed difficulty trying to get her left leg into her underware/pants, and during the process of trying to get dressed she fell off the side of the bed. Denies LOC or hitting her head. Pt had left arm left arm numbness at this same time. She reports hx of vertigo and was worse in the ambulance this morning en transit to hospital. No changes in vision, word finding, slurred speech or confusion. Pt reports that her main complaint is abdominal pain and bloating, feels like she ate a big turkey dinner. PT describes it in the epigastric region and intermittently is there for 1 week. Pt was nauseous this morning, but no vomiting, denies diarrhea or constipation and drinks a "detox tea", last BM was yesterday, and reports having a hemorrhoid currently, but denies seeing blood in stool it is only on paper when she wipes sometimes. Pt notes 1 year ago she had passed a very large vaginal clot where she saw her PCP but due to feeling cp/sob, she was not worked up so much gynecologically. Instead underwent nuclear cardiac stress testing and was told this was normal. Pt admits to noncompliance and poor follow up in the past and has not seen metal roaster since and still has intermittent spotting with blood vaginally. Teleneurologist was contacted and recommended that she be treated with TNK however the patient declined this. NIH scoring was 3, possibly 4 per teleneurology. She was treated with a full dose baby aspirin. CT of the head and neck are negative. Patient was found to have an elevated troponin of 255.6 however EKG is without acute ST wave abnormalities or signs of ischemia. She denies any cardiac complaints, no chest pain no shortness of breath. Her mother and are present at bedside. 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 She is very anxious throughout this entire meeting, and intermittently becomes tearful, cries, then laughs somewhat inappropriately. Admission Exam Per Admitting Provider General: awake, alert, no apparent distress, + obese with BMI 44.1 Head: Normocephalic, atraumatic ENT: PERRL, EOMI, no pharyngeal exudate, mucous membranes moist Chest: Clear to auscultation, on room air, no adventitious breath sounds, + central chest and below the xiphoid process pain Cardiac: Regular rate and rhythm, grad II/III BLANCA, no JVD, normal peripheral pulses, good capillary refill Abdominal: NABS x 4 quadrants, soft, nondistended, nontender to deep palpation, no rebound or guarding Extremities: Normal inspection, no peripheral edema or erythema, calfs nontender to palpation Psych: anxious mood and mood fluctuates between crying, tearfulness and then laughing. Dependent with mother and is at bedside. Neuro: AAO x 3, strength testing normal throughout except left leg straight leg to ceiling is slightly weaker than the right, left arm is slightly weaker with elbow extension. Left sided leg numbness with light touch. CN II-XII intact. Otherwise no motor deficits, speech is clear, no peripheral sensory deficits Principal Dx & Hospital Course #1 = Principal Diagnosis (1) Acute left hemiparesis: (2) Acute CVA (cerebrovascular accident): per Dr. Byrne's notes with addendum: Patient is a 62-year-old female with past medical history of migraine, hyperlipidemia presents to the hospital with sharp frontal headache and weakness in left leg and arm On presentation, patient had mild weakness on left arm and leg with ataxia on left arm Patient declined TNK which was recommended by [facility] due to concern for vaginal bleed Following images were reviewed personally: CT scan of the head showed no acute changes. CT angiography of the head and neck were unremarkable and showed no evidence of vascular stenoses or anomalies. MRI of the brain showed a medium-size right parietotemporal stroke with other acute punctate strokes in bioccipital head regions and the right cerebellum. There was no evidence of hemorrhage. Repeat head CT showed previously reported right posterior MCA infarct with associated edema. No hemorrhagic transformation is seen. Echocardiogram results reviewed; EF of 60 to 65%, no evidence of atrial septal defect Currently on aspirin and statin. A1c of 6.4%; Completed permissive hypertension.. Was started on losartan 50 mg twice daily. Blood pressure improved. Continue on Lipitor 01/08 per Cardiology and Neurology service, acute CVA likely cardioembolic etiology in light of atrial flutter episodes on telemetry continue ASA for now, then transition to Eliquis in 2 weeks to prevent hemorrhagic transformation- monitor closely as patient reporting intermittent vaginal bleeding (3) Paroxysmal atrial flutter: noted while on tele s/p GILBERTO on January 08, 2023: no left atrial or left atrial appendage thrombus, intact interatrial septum, no significant atherosclerosis noted in the visualized portions of the descending thoracic aorta or aortic arch. Cardiology service recommendations: For now, continue aspirin 81 mg daily. We will plan on transitioning to a direct oral anticoagulant, likely Eliquis at the 2-week nicolas with caution with regards to her history of vaginal bleeding, and will need gynecology follow-up. -Increase metoprolol to 25 mg daily (4) Elevated troponin: - Initial set is elevated at 255.6 which trended up to 320 and down trended Echocardiogram as above (5) Mass of pancreas: CT abdomen and pelvis showed 4.3 ill-defined pancreatic head mass resulting in upstream pancreatic duct dilation. Findings suspicious of adenocarcinoma Recommend multiphasic abdominal imaging study with CT or MRI to define pancreatic mass Recommend couple of weeks of stabilization from [employer] perspective and work-up MRI abdomen done on January 04; pancreatic head with central hyper enhancement compatible with malignancy with central necrosis. No vascular involvement seen. GI reviewed the case; patient to need EGD/EUS with FNAC as outpatient. ff up with Oncologist and GI as outpatient (6) Vaginal bleeding: intermittent Vaginal US: (+) endometrial thickening further work up and management as outpatient please refer to Highway Construction Inspector (7) Obesity, morbid, BMI 40.0-49.9: - Lifestyle modification, diet and weight loss need to be encouraged throughout hospital stay - BMI of 44.1 (8) Anxiety: - On clonazepam as needed (9) HLD (hyperlipidemia): Lipid profile reviewed;LDL of 61. TG of 107 Decrease Lipitor to 40 mg once daily based on lipid profile. DVT PPx: -heparin sc q8h CODE: Full code Disposition transfer to inpatient Rehab Discharge Exam General- oriented x 3, not in distress, speaks in sentences with no effort or accessory muscle use Eyes- anicteric Neck- no JVD Lungs- clear breath sounds bilaterally, no rales/wheezes Heart- normal rate, regular rhythm; no murmurs Abdomen- normal bowel sounds, nondistended, soft, nontender Extremities- no pretibial edema, no calf tenderness Neuro- alert, oriented x 3; mild L sided weakness- no gross focal neurologic deficits Skin- warm & dry Updated Medication List Medication Instructions Recorded Confirmed Type clonazepam 0.5 mg tablet 0.5 mg PO BID PRN Anxiety 01/02/23 01/02/23 History meloxicam 7.5 mg tablet 7.5 mg PO DAILY PRN Pain 01/02/23 01/02/23 History nitroglycerin 0.3 mg sublingual 0.3 mg sublingual UD 01/02/23 01/02/23 History tablet aspirin 81 mg tablet,delayed 81 mg PO QAM 30 days #30 tabs 01/08/23 Rx release atorvastatin 40 mg tablet 40 mg PO QAM 30 days #30 tabs 01/08/23 Rx heparin, porcine (PF) 5,000 5,000 unit (0.5 mL) subcut Q8 14 01/08/23 Rx unit/0.5 mL injection syringe days #21 mL losartan 50 mg tablet 50 mg PO BID 30 days #60 tabs 01/08/23 Rx metoprolol succinate 25 mg 25 mg PO QAM 30 days #30 tabs 01/08/23 Rx tablet,extended release 24 hr Hospital Stay Data Consultations 01/02/23 10:07 ED Decision to Admit Stat 01/02/23 11:11 Consult Neurology Routine 01/02/23 12:36 Consult Oncology Routine 01/02/23 13:55 Consult Gastroenterology Routine 01/02/23 17:01 Consult Cardiology Routine 01/07/23 11:22 Consult Anesthesiology Routine Procedures Performed Operation Date: 01/08/23 07:15 Actual Procedures s Echo Doppler Complete - Valdemar Urban DO s Echo Color Flow - Valdemar Urban DO p Echo Transesophageal - Valdemar Urban DO Diagnostic Imagining Performed 01/02/23 08:17 CT angio head w con Stat CT angio neck with con Stat CT head/brain wo con Stat IMPRESSION: 1. No acute intracranial abnormality. 2. Unremarkable CTA of the head and neck. 01/02/23 09:34 US gallbladder Stat 1. There is an approximately 5 cm indeterminant hypoechoic density adjacent to the pancreatic head. Correlation with a contrast-enhanced abdominal CT scan is recommended for further assessment. 2. Cholelithiasis and biliary sludge without sonographic evidence of acute cholecystitis. 3. Hepatomegaly and hepatic steatosis. 01/02/23 11:02 US pelvic complete Stat FINDINGS: Anteflexed uterus measures 8.9 x 3.7 x 4.8 cm. No myometrial mass lesion. Homogeneous echogenic thickening of the endometrium, 1.6 cm. Ovaries are not diagnostically visualized. Limited study secondary to patient body habitus. IMPRESSION: Pathologic thickening of the postmenopausal endometrium. Correlation with tissue sampling recommended. ACT 112: Negative or not required by law. 01/02/23 12:36 CT Abd and Pelvis [CT abd pelvis wo con] Stat IMPRESSION: 1. Confirmation of the 4.3 cm ill-defined pancreatic head mass resulting in upstream pancreatic ductal dilation. Evaluation is limited without the use of IV contrast, however the imaging characteristics are suspicious for adenocarcinoma. GI consultation with endoscopy and tissue sampling recommended. 2. The pancreatic mass abuts and possibly infiltrates the adjacent duodenum . No obstruction. 3. No evidence of metastatic disease. 4. Hepatic steatosis. ACT 112: Negative or not required by law. 01/02/23 13:57 MRI Brain [MR brain wo con] Stat IMPRESSION: Findings are compatible with acute infarct in the right parietal temporal region as well as a few punctate occipital and cerebellar foci of infarct. Evaluation for hemorrhage is highly limited by patient motion however no leighann hemorrhage is seen. 01/04/23 10:42 MRI Abdomen [MR abdomen wo/w con] Routine 1. Pancreatic head mass is known to enhance with some central hypoenhancement compatible with malignancy with central necrosis. No vascular involvement is seen. There is a subcentimeter adjacent lymph node. Additional findings are as above. 2. Hepatic steatosis. ACT 112: Negative or not required by law. 01/04/23 11:01 CT head/brain wo con Routine Impression: Findings are compatible with previously noted right posterior MCA territory infarct with associated edema. No hemorrhagic transformation is seen. Punctate additional foci of infarct seen on MRI are not seen on today's exam. Pending Results Patient Have Any Pending Studies at Discharge: No Discharge Instructions Given to Patient (Per Discharging Provider) Transition to Eliquis in 2 weeks. Follow up with Neurologist, Atomic Fuel Assembler, [employer], Fuel Efficient Automobile Designer in 2 weeks. Please refer to accompanying hospital discharge summary for full details. Total Time Total Time Spent Total Time Spent (In Minutes): > 30 minutes
== END 2023-01-08 15:14 | DRG 65 ==
LOC: ED 08:13 → 4W 13:47 → SUATTDRO 13:47 → 4W 15:46

== ENCOUNTER 2023-02-03 14:04 | Inpatient (IN) ==
[2023-02-03] MEDS ORDERED: SODIUM CHLORIDE 0.9% 1000ML 1,000 ML IV SCH (14:45)
[2023-02-03 14:55] LABS: Basophils # (auto) 0.09 K/uL (0-0.2); Basophils % (auto) 0.6 %; Eosinophils # (auto) 0.17 K/uL (0-0.50); Eosinophils % (auto) 1.1 %; Hematocrit (blood only) 32.1 % (37.0-47.0); Hemoglobin 10.3 g/dl (12.0-16.0); Immature Granulocytes # (auto) 0.07 K/uL (0.01-0.20); Immature Granulocytes % (auto) 0.5 %; Lymphocytes # (auto) 1.53 K/uL (1.2-3.4); Mean Corpuscular Hemoglobin 26.5 pg (25.0-34.0); Mean Corpuscular Hgb Conc 32.1 g/dL (32.0-36.0); Mean Corpuscular Volume 82.5 fL (80.0-100.0); Mean Platelet Volume 9.9 fL (9.4-12.4); Monocytes # (auto) 0.99 K/uL (0.11-0.59); Monocytes % (auto) 6.5 %; Neutrophils # (auto) 12.47 K/uL (1.40-6.50); Neutrophils % (auto) 81.3 %; Platelet Count 220 K/uL (130-400); RDW Coefficient of Variation 13.6 % (11.5-14.5); RDW Standard Deviation 40.9 fL (36.4-46.3); Red Blood Count 3.89 M/uL (4.20-5.40); White Blood Count 15.32 K/ul (4.8-10.8)
--- NOTE | 2023-02-03 15:05 | Emergency Department Note ---
Impression & Plan Vaginal bleeding ADMIT ED Provider Note HPI: The patient is a very pleasant 62-year-old female with history of CVA, currently on Eliquis, presents emergency department chief complaint of vaginal bleeding has been relatively constant since 01/30 when she had an endometrial biopsy performed by [employer] SITE FOREMAN for postmenopausal bleeding. Patient states that she had been soaking through about 1 pad every 2 hours or so over the past several days but this does seem to have slowed down. Patient denies any pain. On arrival here to the ED the patient was noted to be hypotensive at 91/54 and mildly tachycardic at 114. She is afebrile on arrival, on my initial assessment her heart rate is 100, she is resting comfortably in bed and does not appear to be in any acute physical distress. ROS: - Per HPI Differential Diagnosis: Symptomatic anemia, demand ischemia, acute coronary syndrome, urinary tract infection, sepsis, amongst other potential pathologies. *Outpatient medications and allergy history reviewed. *Pertinent external medical records reviewed from OBGYN with [facility] on 01/30/2023 PE: General: Alert HEENT: Normocephalic, trachea midline Eyes: Extraocular eye movement is intact, no scleral erythema Pulmonary: Clear to auscultation bilaterally, no wheezing Cardio: Mildly tachycardic rate and regular rhythm GI: Abdomen is soft to palpation : No suprapubic tenderness MSK: No evidence of trauma or malformation of the extremities, no edema Skin: No evidence of rash Neuro: Alert, no focal deficits Psychiatric: Cooperative court monitor: (As interpreted by myself): - An order was placed for continuous cardiac monitoring - Patient was noted to be in sinus rhythm with a rate of 88 EKG: (As interpreted by myself): Rate: 84 Rhythm: Normal sinus rhythm Intervals: Within normal limits ST changes: No ST elevation Time: 1523 Interventions provided in ED: -IV fluid bolus Medical Decision Making: Patient presented to the emergency department with vaginal bleeding ever since she had an endometrial biopsy performed on 01/30. Patient notes that she was on Eliquis throughout but she stopped it just yesterday for an upcoming EGD procedure on Thursday with [email or web address]. On arrival here to the ED the patient was initially tachycardic and hypotensive in the 90s systolic. Patient is otherwise alert and conversational on my initial assessment, she is not in any respiratory distress. Patient was given IV fluids and lab work obtained, blood pressure did improve to 116/58 following IV fluids. Lab work shows nonspecific leukocytosis of approximately 15,000, blood cultures ordered, there is a new anemia with hemoglobin 10.3, this is in comparison to a hemoglobin of 12.7 on discharge lab work from 01/08/2023. Patient states that since she stopped taking her Eliquis yesterday the bleeding does seem to have slowed down. EKG reviewed by myself shows normal sinus rhythm without any acute ischemic pinzon ges. Troponin was noted to be elevated at 436, patient denies any chest pain or shortness of breath but states she has had some generalized weakness. While here in the hospital in December patient's troponin level peaked at 323, cardiology was consulted, this was not thought to be secondary to ACS. I suspect there is an element of demand ischemia given the patient's bleeding and symptomatic anemia over the past several days. Low suspicion for ACS. Patient's presentation was reviewed with on-call SITE FOREMAN for [facility], Dr. Doty, he is in agreement at this time for medical admission, given that the patient had ultrasound imaging performed on 01/02 that showed endometrial thickening there is no indication for repeat imaging today per Dr. Johnson. I discussed all the above with the patient and her at the bedside, they are in agreement for admission and they are in agreement to the above plan. Case was discussed with the on-call hospitalist for [facility], Dr. Pepper, and the placement was placed for admission in stable condition for further management. Consultants: - SITE FOREMAN, Dr. Doty - Case management for outpatient record review Disposition discussion held by myself with: Patient and * CRITICAL CARE TIME: ( 35 ) minutes -Stabilization of hypotension and tachycardia on presentation with IV fluid resuscitation, time spent at the bedside, interpretation of EKG and diagnostic studies/lab work, discussion with other healthcare providers including SITE FOREMAN on-call as well as the hospitalist service and arrangement of admission. Diagnosis: 1. Symptomatic anemia, acute 2. Vaginal bleeding status post endometrial biopsy, acute 3. Elevated troponin, acute on chronic Disposition: Admission Krish Irizarry DO Emergency Medicine Past Med/Surg History Medical History (Updated 02/03/23 @ 16:38 by Krish Irizarry DO) Anxiety CVA (cerebral vascular accident) 01/02/23 treated at [facility] - left sided deficits; will follow w/ [facility] neuro (06/2023 soonest appointment) GERD (gastroesophageal reflux disease) HLD (hyperlipidemia) HTN (hypertension) does not follow w/ cardio, has an appointment scheduled to see [facility] cardio 02/19/2023 Hx of mammogram Hx of rheumatic fever childhood Mass of pancreas Obesity, morbid, BMI 40.0-49.9 Paroxysmal atrial flutter Poor historian SVT (supraventricular tachycardia) Surgical History History of esophagogastroduodenoscopy (EGD) Hx of appendectomy Hx of colonoscopy Family History Father , age 64 prostate cancer Prostate cancer Grandmother (Paternal) Cancer Breast cancer Social History Smoking Status: Never smoker Second Hand Exposure: No; Do You Dip or Chew Tobacco: No; Hx Alcohol Use: Yes Alcohol Intake Frequency: Monthly or Less Hx Substance Use: No Preferred Language: Czech Communication Ability: Effective Elementary Assistant Teacher Required: No Beliefs That Will Affect Care: None Current Living Situation: Spouse and Family current occupational status: employed 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 Feels Safe at Home: Yes Assistive Devices: Walker Allergies Allergies Allergy/AdvReac Type Severity Reaction Status Date / Time No Known Allergies Allergy Unverified 01/30/23 08:16 Home Meds Home Medications Medication Instructions Recorded Confirmed clonazepam 0.5 mg tablet 0 mg PO BID PRN Anxiety 01/02/23 01/30/23 nitroglycerin 0.3 mg sublingual 0 mg sublingual UD 01/02/23 01/30/23 tablet apixaban 5 mg tablet (Eliquis) 5 mg PO BID 01/30/23 02/03/23 aspirin 81 mg tablet,delayed 0 mg PO QAM 02/03/23 release pantoprazole 40 mg tablet,delayed 40 mg PO HS 02/03/23 02/03/23 release Previous Rx's Medication Instructions Recorded atorvastatin 40 mg tablet 40 mg PO QAM 30 days #30 tabs 01/08/23 losartan 50 mg tablet 50 mg PO BID 30 days #60 tabs 01/08/23 metoprolol succinate 25 mg 25 mg PO QAM 30 days #30 tabs 01/08/23 tablet,extended release 24 hr Results & Data (ED) Vital Signs Vital Signs - 24 hr 02/03/23 14:08 02/03/23 14:22 02/03/23 15:07 Temperature 36.0 C L Temperature Source Temporal Artery Scan Pulse Rate 95 H 114 H Pulse Rate [Apical] Pulse Rate from SpO2 Sensor Respiratory Rate 22 Respiratory Effort / Characteristics Non-Labored Respiratory Depth Normal Blood Pressure 91/54 L Blood Pressure Mean 66 Pulse Oximetry 95 96 Oxygen Delivery Method Room Air Room Air Sepsis Recent Fever Within 48 Hours No Sepsis New/Unexplained Change in Mental Status N/A Sepsis Action Taken by Nursing No Action Required 02/03/23 14:31 02/03/23 15:08 02/03/23 14:20 Temperature Temperature Source Pulse Rate 117 H Pulse Rate [Apical] 99 H Pulse Rate from SpO2 Sensor Respiratory Rate 16 19 Respiratory Effort / Characteristics Respiratory Depth Blood Pressure 99/58 L Blood Pressure Mean 71 Pulse Oximetry 95 95 94 Oxygen Delivery Method Room Air Room Air Room Air Sepsis Recent Fever Within 48 Hours Sepsis New/Unexplained Change in Mental Status Sepsis Action Taken by Nursing 02/03/23 14:30 02/03/23 15:25 02/03/23 15:30 Temperature Temperature Source Pulse Rate 103 H 84 93 H Pulse Rate [Apical] Pulse Rate from SpO2 Sensor 104 H Respiratory Rate 17 15 13 Respiratory Effort / Characteristics Respiratory Depth Blood Pressure 100/46 L 101/49 L Blood Pressure Mean 64 66 Pulse Oximetry 94 100 98 Oxygen Delivery Method Room Air Room Air Sepsis Recent Fever Within 48 Hours Sepsis New/Unexplained Change in Mental Status Sepsis Action Taken by Nursing 02/03/23 16:00 Temperature Temperature Source Pulse Rate 88 Pulse Rate [Apical] Pulse Rate from SpO2 Sensor Respiratory Rate 14 Respiratory Effort / Characteristics Respiratory Depth Blood Pressure 116/58 L Blood Pressure Mean 77 Pulse Oximetry Oxygen Delivery Method Sepsis Recent Fever Within 48 Hours Sepsis New/Unexplained Change in Mental Status Sepsis Action Taken by Nursing Laboratory Data 02/03/23 14:27 02/03/23 14:27 Lab Results 02/03/23 02/03/23 02/03/23 Range/Units 14:27 14:27 14:27 WBC 15.32 H (4.8-10.8) K/ul RBC 3.89 L (4.20-5.40) M/uL Hgb 10.3 L (12.0-16.0) g/dl Hct 32.1 L (37.0-47.0) % MCV 82.5 (80.0-100.0) fL MCH 26.5 (25.0-34.0) pg MCHC 32.1 (32.0-36.0) g/dL RDW Std Deviation 40.9 (36.4-46.3) fL RDW Coeff of Kristin 13.6 (11.5-14.5) % Plt Count 220 (130-400) K/uL MPV 9.9 (9.4-12.4) fL Immature Gran % (Auto) 0.5 % Neut % (Auto) 81.3 % Lymph % (Auto) 10.0 % Carlisle % (Auto) 6.5 % Eos % (Auto) 1.1 % Baso % (Auto) 0.6 % Neut # (Auto) 12.47 H (1.40-6.50) K/uL Lymph # (Auto) 1.53 (1.2-3.4) K/uL Carlisle # (Auto) 0.99 H (0.11-0.59) K/uL Eos # (Auto) 0.17 (0-0.50) K/uL Baso # (Auto) 0.09 (0-0.2) K/uL Immature Gran # (Auto) 0.07 (0.01-0.20) K/uL PT 12.9 H (9.0-12.0) Seconds INR 1.2 H (0.9-1.1) APTT 27.8 (21.0-31.0) Seconds PTT Ratio 1.0 Sodium 135 L (136-145) mmol/L Potassium 4.2 (3.5-5.1) mmol/L Chloride 98 (98-107) mmol/L Carbon Dioxide 24 (21-32) mmol/L Anion Gap 13 H (3-11) BUN 14 (6-23) mg/dl Creatinine 1.18 (0.6-1.2) mg/dl Est Cr Clr Drug Dosing Not Reportable Est GFR ( Amer) 58.1 ml/min Est GFR (Non-Af Amer) 50.1 ml/min BUN/Creatinine Ratio 11.9 (10-20) Glucose 221 H (70-99(Fasting)) mg/dl Calcium 10.3 (8.6-10.3) mg/dl Magnesium 2.0 (1.7-2.4) mg/dl Total Bilirubin 0.5 (0.2-1.0) mg/dl AST 13 (13-39) U/L ALT 11 (7-52) U/L Alkaline Phosphatase 89 (34-104) U/L Troponin I High Sens 436.3 H* (0-14) pg/ml Total Protein 7.8 (6.0-8.3) gm/dl Albumin 4.4 (3.4-5.0) gm/dl Globulin 3.4 (2.5-4.0) gm/dl Albumin/Globulin Ratio 1.3 (0.9-2) SARS-CoV-2, RNA, NAAT (NEGATIVE) Blood Type Antibody Screen 02/03/23 02/03/23 Range/Units 15:00 15:01 WBC (4.8-10.8) K/ul RBC (4.20-5.40) M/uL Hgb (12.0-16.0) g/dl Hct (37.0-47.0) % MCV (80.0-100.0) fL MCH (25.0-34.0) pg MCHC (32.0-36.0) g/dL RDW Std Deviation (36.4-46.3) fL RDW Coeff of Kristin (11.5-14.5) % Plt Count (130-400) K/uL MPV (9.4-12.4) fL Immature Gran % (Auto) % Neut % (Auto) % Lymph % (Auto) % Carlisle % (Auto) % Eos % (Auto) % Baso % (Auto) % Neut # (Auto) (1.40-6.50) K/uL Lymph # (Auto) (1.2-3.4) K/uL Carlisle # (Auto) (0.11-0.59) K/uL Eos # (Auto) (0-0.50) K/uL Baso # (Auto) (0-0.2) K/uL Immature Gran # (Auto) (0.01-0.20) K/uL PT (9.0-12.0) Seconds INR (0.9-1.1) APTT (21.0-31.0) Seconds PTT Ratio Sodium (136-145) mmol/L Potassium (3.5-5.1) mmol/L Chloride (98-107) mmol/L Carbon Dioxide (21-32) mmol/L Anion Gap (3-11) BUN (6-23) mg/dl Creatinine (0.6-1.2) mg/dl Est Cr Clr Drug Dosing Est GFR ( Amer) ml/min Est GFR (Non-Af Amer) ml/min BUN/Creatinine Ratio (10-20) Glucose (70-99(Fasting)) mg/dl Calcium (8.6-10.3) mg/dl Magnesium (1.7-2.4) mg/dl Total Bilirubin (0.2-1.0) mg/dl AST (13-39) U/L ALT (7-52) U/L Alkaline Phosphatase (34-104) U/L Troponin I High Sens (0-14) pg/ml Total Protein (6.0-8.3) gm/dl Albumin (3.4-5.0) gm/dl Globulin (2.5-4.0) gm/dl Albumin/Globulin Ratio (0.9-2) SARS-CoV-2, RNA, NAAT NEGATIVE (NEGATIVE) Blood Type O Positive Antibody Screen NEGATIVE Administered Medications Discontinued Medications Sodium Chloride (Nss 1000ml) 1,000 mls @ 999 mls/hr IV .Q1H1M RAMON Stop: 02/03/23 15:45 Last Infusion: 02/03/23 16:07 Dose: 0 mls/hr Documented By: [facility] Admin: 02/03/23 15:09 Dose: 999 mls/hr Documented By: Sodium Chloride (Nss 1000ml) 1,000 mls @ 999 mls/hr IV .Q1H1M ONE Stop: 02/03/23 16:18 Last Admin: 02/03/23 15:34 Dose: 999 mls/hr Documented By: [facility] Imaging Data Radiologist's Impression: Chest X-Ray 02/03/23 15:18 XR chest 1V portable CLINICAL HISTORY: leukocytosis, eval for PNA TECHNIQUE: Single frontal radiograph of the chest was obtained. Comparison: Comparison is made to chest radiograph 01/02/2023 FINDINGS: No lines and tubes are seen. The cardiomediastinal silhouette is normal. Lungs are underinflated but clear. No evidence of pleural effusion or pneumothorax. IMPRESSION: No acute abnormalities and in particular no radiographic evidence of pneumonia. ACT 112: Negative or not required by law. Electronically signed by: Janak Joy M.D. 02/03/2023 3:43 PM Discharge Plan Visit Data Chief Complaint: Vaginal Bleeding Stated Complaint: BLEEDING ED Provider: Krish Irizarry Discharge Problem: Vaginal bleeding Forms Stand Alone Forms: [facility] Prescriptions Prescriptions: No Action Eliquis 5 mg Tablet 5 mg PO BID Rx Instructions: Verified with [facility] pharmacist pantoprazole 40 mg tablet,delayed release (DR/EC) 40 mg PO HS Rx Instructions: Verified with [facility] pharmacist aspirin 81 mg tablet,delayed release (DR/EC) 0 mg PO QAM Rx Instructions: [facility] pharmacist couldn't verify nitroglycerin 0.3 mg Tablet, Sublingual 0 mg sublingual UD Rx Instructions: 02/03/23-[facility] pharmacist couldn't verify Place 1 tab under the tongue as needed for chest pain, clonazepam 0.5 mg Tablet 0 mg PO BID PRN (Reason: Anxiety) Rx Instructions: [facility] pharmacist couldn't verify losartan 50 mg Tablet 50 mg PO BID 30 Days Qty: 60 0RF Rx Instructions: Verified with [facility] pharmacist atorvastatin 40 mg Tablet 40 mg PO QAM 30 Days Qty: 30 0RF Rx Instructions: Verified with [facility] pharmacist metoprolol succinate 25 mg Tablet Extended Release 24 Hr 25 mg PO QAM 30 Days Qty: 30 0RF Rx Instructions: Verified with [facility] pharmacist Referrals Referrals: Vanesa Solorzano DO [Primary Care Provider] -
[2023-02-03 15:12] LABS: Alanine Aminotransferase 11 U/L (7-52); Albumin Globulin Ratio 1.3 (0.9-2); Albumin Level 4.4 gm/dl (3.4-5.0); Alkaline Phosphatase 89 U/L (34-104); Anion Gap 13 (3-11); Aspartate Aminotransferase 13 U/L (13-39); BUN Creatinine Ratio 11.9 (10-20); Bilirubin,Total 0.5 mg/dl (0.2-1.0); Blood Urea Nitrogen 14 mg/dl (6-23); Calcium 10.3 mg/dl (8.6-10.3); Carbon Dioxide 24 mmol/L (21-32); Chloride 98 mmol/L (98-107); Est GFR (African American) 58.1 ml/min; Est GFR (Non-African American) 50.1 ml/min; Globulin 3.4 gm/dl (2.5-4.0); Glucose 221 mg/dl (70-99(Fasting)); Potassium 4.2 mmol/L (3.5-5.1); Sodium 135 mmol/L (136-145); Total Protein 7.8 gm/dl (6.0-8.3)
[2023-02-03] MEDS ORDERED: SODIUM CHLORIDE 0.9% 1000ML 1,000 ML IV ONE (15:18)
[2023-02-03 15:25] LABS: Troponin I High Sensitivity 436.3 pg/ml (0-14)
[2023-02-03 15:39] LABS: INR 1.2 (0.9-1.1); Partial Thromboplastin Time 27.8 Seconds (21.0-31.0); Prothrombin Time 12.9 Seconds (9.0-12.0)
--- NOTE | 2023-02-03 15:45 | XRay Report ---
XR chest 1V portable CLINICAL HISTORY: leukocytosis, eval for PNA TECHNIQUE: Single frontal radiograph of the chest was obtained. Comparison: Comparison is made to chest radiograph 01/02/2023 FINDINGS: No lines and tubes are seen. The cardiomediastinal silhouette is normal. Lungs are underinflated but clear. No evidence of pleural effusion or pneumothorax. IMPRESSION: No acute abnormalities and in particular no radiographic evidence of pneumonia. ACT 112: Negative or not required by law. Electronically signed by: Janak Joy M.D. 02/03/2023 3:43 PM
--- NOTE | 2023-02-03 18:01 | History & Physical Report ---
Date of Service February 03, 2023 Assessment & Plan (1) Vaginal bleeding: Plan: with symptomatic anemia (weakness, malaise, fatigue) following endometrial bx in the setting of Apixaban hold ASA and Apixaban for now trend h/h, anticipate some drop d/t hemodilution with IVF transfuse for hgb < 7 at presentation h/h 13.3/32.1 down from 12.7/39.4 about a month ago OBGyn aware, will not intervene until bx result is known unless pt were to become unstable Present on Admission?: Yes (2) Elevated troponin: Plan: no normal troponin on record here, recently in the 200s, now in the 400s, suspect d/t demand ischemia in the setting of anemia trend, if rising consult cardiology no known CAD that I am aware of, however prior to recent admission pt was largely non-compliant and avoided medical evaluations (3) Leukocytosis: Plan: likely reactive no e/o infection on CXR, UA, COVID is negative pt denies any focal symptoms other than vaginal bleeding Present on Admission?: Yes (4) Anemia: Plan: acute on chronic d/t vaginal bleeding transfuse for hgb < 7 rest per above under vaginal bleeding Present on Admission?: Yes (5) SVT (supraventricular tachycardia): Plan: currently in NSR continue metoprolol Present on Admission?: Yes (6) Paroxysmal atrial flutter: Plan: currently in NSR, continue metoprolol hold Apixaban in the setting of acute bleed with symptomatic anemia Present on Admission?: Yes (7) Left-sided weakness: Plan: at baseline, per has continuously improved since stroke continue PT/OT Present on Admission?: Yes (8) HLD (hyperlipidemia): Plan: continue statin therapy Present on Admission?: Yes (9) Obesity, morbid, BMI 40.0-49.9: Plan: will counseling psychologist on diet and exercise for weight loss BMI not calculated b/c weight is not yet entered Present on Admission?: Yes History of Present Illness Chief Complaint: vaginal bleeding Primary Care Provider: Vanesa Solorzano DO Ms. Spivey is a 62 year old female with pmhx of morbid obesity, SVT, paroxysmal Aflutter, + elevated troponin, HLP, pancreatic mass, and anxiety. 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 She presents now with vaginal bleeding after an endometrial bx while on Eliquis. Hx is per pt and at bedside. Ms. Spivey presented 01/02/23 with left sided weakness and was found to have acute CVA. At that time she had mentioned about a year or so of mild postmenopausal bleeding that she had neglected to fol low up on. Transvaginal US was obtained and abnormal. This was followed up with an endometrial bx 01/30/23. At that point she was supposed to be taking Eliquis but there was a delay in filling the prescription. On 01/31 she felt well and did not have any problems. That night she took Eliquis for the first time and at some point later that night vaginal bleeding became severe and continued into Thursday. She has not taken Eliquis or ASA since. Bleeding seemed to be slowing but last night was severe again. Around 2-3 this morning she was trying to move her bowels and threw up at the same time. Per her mother the BM was solid but bloody. The patient endorses fatigue, generalized weakness, and malaise. Left sided weakness continues to improve. She denies HERMOSILLO, dizziness, lightheadedness, CP, palpitations, sob, hematemesis, and abdominal pain. She further denies f/c, cough, congestion, and rhinorrhea. She has no other complaints. ER course: VS notable for HR 90s-1-teens, BP 91/54 b/w notable for wbc 15.32, hgb 10.3, hct 32.1, glucose 221. Remaining cbc and cmp are unimpressive. Trop I 436 (previously in the 200s). CXR neg for acute pathology COVID negative. Case was discussed with OBGyn by ED MD. They do not plan any intervention until pathology report is back. Pt given NS and admitted to hospitalist service Allergies Allergy/AdvReac Type Severity Reaction Status Date / Time No Known Allergies Allergy Unverified 01/30/23 08:16 Home Medications Medication Instructions Recorded Confirmed Type clonazepam 0.5 mg tablet 0 mg PO BID PRN Anxiety 01/02/23 01/30/23 History nitroglycerin 0.3 mg sublingual 0 mg sublingual UD 01/02/23 01/30/23 History tablet atorvastatin 40 mg tablet 40 mg PO QAM 30 days #30 tabs 01/08/23 02/03/23 Rx losartan 50 mg tablet 50 mg PO BID 30 days #60 tabs 01/08/23 02/03/23 Rx metoprolol succinate 25 mg 25 mg PO QAM 30 days #30 tabs 01/08/23 02/03/23 Rx tablet,extended release 24 hr apixaban 5 mg tablet (Eliquis) 5 mg PO BID 01/30/23 02/03/23 History aspirin 81 mg tablet,delayed 0 mg PO QAM 02/03/23 History release pantoprazole 40 mg tablet,delayed 40 mg PO HS 02/03/23 02/03/23 History release Past Med/Surg History Medical History (Updated 02/03/23 @ 18:27 by Tiera Pepper MD) Anxiety CVA (cerebral vascular accident) 01/02/23 treated at [facility] - left sided deficits; will follow w/ [facility] neuro (06/2023 soonest appointment) GERD (gastroesophageal reflux disease) History of transesophageal echocardiography (GILBERTO) HLD (hyperlipidemia) HTN (hypertension) does not follow w/ cardio, has an appointment scheduled to see [facility] cardio 02/19/2023 Hx of mammogram Hx of rheumatic fever childhood Mass of pancreas Obesity, morbid, BMI 40.0-49.9 Paroxysmal atrial flutter Poor historian SVT (supraventricular tachycardia) Surgical History History of esophagogastroduodenoscopy (EGD) Hx of appendectomy Hx of colonoscopy Family History Father , age 64 prostate cancer Prostate cancer Grandmother (Paternal) Cancer Breast cancer Social History Smoking Status: Never smoker Second Hand Exposure: No; Do You Dip or Chew Tobacco: No; Hx Alcohol Use: Yes Alcohol Intake Frequency: Monthly or Less Hx Substance Use: No Preferred Language: Ugandan Communication Ability: Effective Performance Specialist Required: No Beliefs That Will Affect Care: None Current Living Situation: Spouse and Family current occupational status: employed 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 No collins. Ext: no pretibial edema MSK: normal bulk and tone Neuro: left sided weakness at baseline, no other focal deficits Psych: extremely anxious Skin: visible skin is warm, dry, and without rash. Pt not fully undressed for exam. Results & Data Results & Data Vital Signs (Past 12 Hours) Vital Signs Temp Pulse Pulse Resp BP Pulse Ox O2 Del Method 02/03/23 17:30 75 17 113/60 98 Room Air 02/03/23 17:00 79 15 114/60 98 Room Air 02/03/23 16:36 86 17 111/60 96 Room Air 02/03/23 16:00 88 14 116/58 L 02/03/23 15:30 93 H 13 101/49 L 98 Room Air 02/03/23 15:25 84 15 100/46 L 100 Room Air 02/03/23 14:30 103 H 17 94 02/03/23 14:20 117 H 19 99/58 L 94 Room Air 02/03/23 15:08 99 H 16 95 Room Air 02/03/23 14:31 95 Room Air 02/03/23 15:07 96 Room Air 02/03/23 14:22 114 H 02/03/23 14:08 36.0 C L 95 H 22 91/54 L 95 Room Air Laboratory Results Short CBC 02/03/23 Range/Units 14:27 WBC 15.32 H (4.8-10.8) K/ul Hgb 10.3 L (12.0-16.0) g/dl Hct 32.1 L (37.0-47.0) % Plt Count 220 (130-400) K/uL BMP 02/03/23 14:27 Sodium 135 L Potassium 4.2 Chloride 98 Carbon Dioxide 24 BUN 14 Creatinine 1.18 Glucose 221 H Calcium 10.3 Liver Function 02/03/23 Range/Units 14:27 Total Bilirubin 0.5 (0.2-1.0) mg/dl AST 13 (13-39) U/L ALT 11 (7-52) U/L Alkaline Phosphatase 89 (34-104) U/L Albumin 4.4 (3.4-5.0) gm/dl Diagnostic Findings Chest X-Ray 02/03/23 15:18 XR chest 1V portable CLINICAL HISTORY: leukocytosis, eval for PNA FINDINGS: No lines and tubes are seen. The cardiomediastinal silhouette is normal. Lungs are underinflated but clear. No evidence of pleural effusion or pneumothorax. IMPRESSION: No acute abnormalities and in particular no radiographic evidence of pneumonia. Electronically signed by: Janak Joy M.D. 02/03/2023 3:43 PM Code Status & VTE Plan Code Status Full.
--- NOTE | 2023-02-03 18:06 | Electrocardiogram Report ---
Test Reason : Blood Pressure : / mmHG Vent. Rate : 084 BPM Atrial Rate : 084 BPM P-R Int : 154 ms QRS Dur : 084 ms QT Int : 362 ms P-R-T Axes : 034 004 028 degrees QTc Int : 427 ms Normal sinus rhythm Minimal voltage criteria for LVH, may be normal variant Nonspecific T wave abnormality Abnormal ECG When compared with ECG of 03-JAN-2023 05:09, No significant change was found Confirmed by Mundo Aponte ([id number]) on 02/03/2023 6:05:54 PM Referred By: REFERRED SELF Confirmed By:Patrick Aponte
[2023-02-03] MEDS ORDERED: POLYETHYLENE (MIRALAX) 17 GM PACK PO PRN (18:27)
[2023-02-03] MEDS ORDERED: ALUMINUM/MAGNESIUM SUSP 30 ML UDC PO PRN (18:27)
[2023-02-03] MEDS ORDERED: MAGNESIUM HYDROXIDE SUSP 30 ML UDC PO PRN (18:27)
[2023-02-03] MEDS ORDERED: ACETAMINOPHEN 325 MG TAB PO PRN (18:27)
[2023-02-03] MEDS: SODIUM CHLORIDE 0.9% 1000ML 1,000 ML IV SCH (23:24)
[2023-02-03] MEDS: PANTOprazole 40 MG TAB PO SCH (23:25)
[2023-02-04] MEDS: SODIUM CHLORIDE 0.9% 1000ML 1,000 ML IV SCH ×2 (06:01→15:14)
[2023-02-04 07:29] LABS: BUN Creatinine Ratio 12.6 (10-20); Calcium 8.3 mg/dl (8.6-10.3); Creatinine Clr Calc Pharmacy 77.7 ml/min; Est GFR (African American) 75.5 ml/min; Est GFR (Non-African American) 65.1 ml/min; Potassium 4.3 mmol/L (3.5-5.1)
[2023-02-04 07:35] LABS: Hematocrit (blood only) 21.3 % (37.0-47.0); Hemoglobin 7.1 g/dl (12.0-16.0); Mean Corpuscular Hemoglobin 27.3 pg (25.0-34.0); Mean Corpuscular Hgb Conc 33.3 g/dL (32.0-36.0); Mean Corpuscular Volume 81.9 fL (80.0-100.0); Mean Platelet Volume 10.5 fL (9.4-12.4); Platelet Count 124 K/uL (130-400); RDW Coefficient of Variation 13.8 % (11.5-14.5); White Blood Count 12.17 K/ul (4.8-10.8)
[2023-02-04] MEDS: ATORVASTATIN 40 MG TAB PO SCH (08:23)
[2023-02-04] MEDS: METOPROLOL SUCC 25MG EXT REL TAB PO SCH (08:23)
[2023-02-04] MEDS ORDERED: SODIUM CHLORIDE 0.9% 250 ML IV PRN ×2 (08:57→11:55)
--- NOTE | 2023-02-04 12:24 | OB/GYN Consultation ---
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 Lopez Attending Physician: Jacques Robison MD History of Present Illness 62 F [id number] with post-menopausal bleeding for approximately one and a half years presents to ER with onset of vaginal bleeding that has persisted since endometrial biopsy done on01/30/23 in the office. Pathology report show Endometrial/endometriod carcinoma FIGO grade I. This diagnosis was told to patient and her both present. Allergies Allergy/AdvReac Type Severity Reaction Status Date / Time No Known Allergies Allergy Unverified 01/30/23 08:16 Home Medications Medication Instructions Recorded Confirmed Type clonazepam 0.5 mg tablet 0 mg PO BID PRN Anxiety 01/02/23 01/30/23 History nitroglycerin 0.3 mg sublingual 0 mg sublingual UD 01/02/23 01/30/23 History tablet atorvastatin 40 mg tablet 40 mg PO QAM 30 days #30 tabs 01/08/23 02/03/23 Rx losartan 50 mg tablet 50 mg PO BID 30 days #60 tabs 01/08/23 02/03/23 Rx metoprolol succinate 25 mg 25 mg PO QAM 30 days #30 tabs 01/08/23 02/03/23 Rx tablet,extended release 24 hr apixaban 5 mg tablet (Eliquis) 5 mg PO BID 01/30/23 02/03/23 History aspirin 81 mg tablet,delayed 0 mg PO QAM 02/03/23 History release pantoprazole 40 mg tablet,delayed 40 mg PO HS 02/03/23 02/03/23 History release Patient History Medical History Anxiety CVA (cerebral vascular accident) 01/02/23 treated at [facility] - left sided deficits; will follow w/ S neuro (06/2023 soonest appointment) GERD (gastroesophageal reflux disease) History of transesophageal echocardiography (GILBERTO) HLD (hyperlipidemia) HTN (hypertension) does not follow w/ cardio, has an appointment scheduled to see [facility] cardio 02/19/2023 Hx of mammogram Hx of rheumatic fever childhood Mass of pancreas Obesity, morbid, BMI 40.0-49.9 Paroxysmal atrial flutter Poor historian SVT (supraventricular tachycardia) Surgical History History of esophagogastroduodenoscopy (EGD) Hx of appendectomy Hx of colonoscopy Family History Father , age 64 prostate cancer Prostate cancer Grandmother (Paternal) Cancer Breast cancer Social History Smoking Status: Never smoker Second Hand Exposure: No; Do You Dip or Chew Tobacco: No; Tobacco Cessation Education Requested by Patient: No Hx Alcohol Use: Yes Alcohol Intake Frequency: Monthly or Less Hx Substance Use: No Preferred Language: Slovenian Communication Ability: Effective Credit Card Analyst Required: No Beliefs That Will Affect Care: None Current Living Situation: Spouse current occupational status: employed 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 no pain with palpation. no palpable mass. no evidence of ascites. Musculoskeletal: Extremities: extremities normal to inspection Skin: no rashes, warm and dry Results & Data Vital Signs (Past 12 Hours) Vital Signs Temp Pulse Pulse Resp BP Pulse Ox O2 Del Method 02/04/23 11: 36.9 C 83 20 117/62 96 Room Air 02/04/23 08:01 102 H 02/04/23 07:48 36.7 C 83 20 98/61 L 93 Room Air 02/04/23 02:33 36.5 C 75 18 118/69 98 Room Air Laboratory Results Laboratory Results - last 72 hr 02/03/23 02/03/23 02/03/23 14:27 14:27 14:27 WBC 15.32 H RBC 3.89 L Hgb 10.3 L Hct 32.1 L MCV 82.5 MCH 26.5 MCHC 32.1 RDW Std Deviation 40.9 RDW Coeff of Kristin 13.6 Plt Count 220 MPV 9.9 Immature Gran % (Auto) 0.5 Neut % (Auto) 81.3 Lymph % (Auto) 10.0 [place] % (Auto) 6.5 Eos % (Auto) 1.1 Baso % (Auto) 0.6 Neut # (Auto) 12.47 H Lymph # (Auto) 1.53 [place] # (Auto) 0.99 H Eos # (Auto) 0.17 Baso # (Auto) 0.09 Immature Gran # (Auto) 0.07 PT 12.9 H INR 1.2 H APTT 27.8 PTT Ratio 1.0 Sodium 135 L Potassium 4.2 Chloride 98 Carbon Dioxide 24 Anion Gap 13 H BUN 14 Creatinine 1.18 Est Cr Clr Drug Dosing Not Reportable Est GFR ( Amer) 58.1 Est GFR (Non-Af Amer) 50.1 BUN/Creatinine Ratio 11.9 Glucose 221 H Calcium 10.3 Magnesium 2.0 Total Bilirubin 0.5 AST 13 ALT 11 Alkaline Phosphatase 89 Troponin I High Sens 436.3 H* Total Protein 7.8 Albumin 4.4 Globulin 3.4 Albumin/Globulin Ratio 1.3 Procalcitonin SARS-CoV-2, RNA, NAAT Blood Type Blood Type Recheck Antibody Screen Crossmatch 02/03/23 02/03/23 02/03/23 15:00 15:01 16:08 WBC RBC Hgb Hct MCV MCH MCHC RDW Std Deviation RDW Coeff of Kristin Plt Count MPV Immature Gran % (Auto) Neut % (Auto) Lymph % (Auto) [place] % (Auto) Eos % (Auto) Baso % (Auto) Neut # (Auto) Lymph # (Auto) [place] # (Auto) Eos # (Auto) Baso # (Auto) Immature Gran # (Auto) PT INR APTT PTT Ratio Sodium Potassium Chloride Carbon Dioxide Anion Gap BUN Creatinine Est Cr Clr Drug Dosing Est GFR ( Amer) Est GFR (Non-Af Amer) BUN/Creatinine Ratio Glucose Calcium Magnesium Total Bilirubin AST ALT Alkaline Phosphatase Troponin I High Sens Total Protein Albumin Globulin Albumin/Globulin Ratio Procalcitonin 0.05 SARS-CoV-2, RNA, NAAT NEGATIVE Blood Type O Positive Blood Type Recheck Antibody Screen NEGATIVE Crossmatch See Detail 02/04/23 02/04/23 02/04/23 06:31 06:31 06:31 WBC 12.17 H RBC 2.60 L Hgb 7.1 L D Hct 21.3 L MCV 81.9 MCH 27.3 MCHC 33.3 RDW Std Deviation 41.0 RDW Coeff of Kristin 13.8 Plt Count 124 L MPV 10.5 Immature Gran % (Auto) Neut % (Auto) Lymph % (Auto) [place] % (Auto) Eos % (Auto) Baso % (Auto) Neut # (Auto) Lymph # (Auto) [place] # (Auto) Eos # (Auto) Baso # (Auto) Immature Gran # (Auto) PT INR APTT PTT Ratio Sodium 138 Potassium 4.3 Chloride 108 H Carbon Dioxide 24 Anion Gap 6 BUN 12 Creatinine 0.95 Est Cr Clr Drug Dosing 77.7 Est GFR ( Amer) 75.5 Est GFR (Non-Af Amer) 65.1 BUN/Creatinine Ratio 12.6 Glucose 170 H Calcium 8.3 L D Magnesium Total Bilirubin AST ALT Alkaline Phosphatase Troponin I High Sens Total Protein Albumin Globulin Albumin/Globulin Ratio Procalcitonin SARS-CoV-2, RNA, NAAT Blood Type Blood Type Recheck O Positive Antibody Screen Crossmatch 02/04/23 12:04 WBC RBC Hgb Hct MCV MCH MCHC RDW Std Deviation RDW Coeff of Kristin Plt Count MPV Immature Gran % (Auto) Neut % (Auto) Lymph % (Auto) [place] % (Auto) Eos % (Auto) Baso % (Auto) Neut # (Auto) Lymph # (Auto) [place] # (Auto) Eos # (Auto) Baso # (Auto) Immature Gran # (Auto) PT INR APTT PTT Ratio Sodium Potassium Chloride Carbon Dioxide Anion Gap BUN Creatinine Est Cr Clr Drug Dosing Est GFR ( Amer) Est GFR (Non-Af Amer) BUN/Creatinine Ratio Glucose Calcium Magnesium Total Bilirubin AST ALT Alkaline Phosphatase Troponin I High Sens 513.9 H* Total Protein Albumin Globulin Albumin/Globulin Ratio Procalcitonin SARS-CoV-2, RNA, NAAT Blood Type Blood Type Recheck Antibody Screen Crossmatch Diagnostic Findings MRI shows evidence for mass at head of pancreas CT pelvis thickened endometrium
[2023-02-04] MEDS: ONDANSETRON INJ 2 MG/ML 2 ML VIAL IV PRN (14:30)
--- NOTE | 2023-02-04 16:21 | Hospitalist Progress Note ---
Date of Service February 04, 2023 Assessment & Plan (1) Vaginal bleeding: Plan: Postprocedural vaginal hemorrhage due to biopsy in the setting of Eliquis Endometrial carcinoma ? Metastatic Pancreatic mass --Abdominal MRI on 01/04/2023:Pancreatic head mass is known to enhance with some central hypoenhancement compatible with malignancy with central necrosis. No vascular involvement is seen. There is a subcentimeter adjacent lymph node. Additional findings are as above. Hepatic steatosis. -- Reviewed outpatient pathology report consistent with endometrial endometrioid carcinoma, FIGO 1 in background of EIN and polyp -- Needs surgical staging with gynecology oncologist at [facility] [place] Appreciate GAUGE CHECKER input Aspirin discontinued Eliquis on hold Needs follow-up with GAUGE CHECKER as outpatient upon discharge Started on Megace Plan to resume Eliquis as able Symptomatic anemia Secondary to above Monitor CBC and transfuse PRBCs as needed (2) Elevated troponin: Plan: Chronic troponin elevation Likely secondary to demand ischemia due to anemia No known CAD Patient denies chest pain, dyspnea Pt was largely non-compliant and avoided medical evaluations per records (3) Leukocytosis: Plan: likely reactive Blood cultures pending Monitor (4) Anemia: Plan: acute on chronic: Anemia of chronic disease Worsened due to vaginal bleeding Monitor CBC (5) SVT (supraventricular tachycardia): Plan: continue metoprolol (6) Paroxysmal atrial flutter: Plan: continue metoprolol Resume Apixaban--ok to resume tmw per OBGYN (7) Left-sided weakness: Plan: at baseline, per has continuously improved since stroke continue PT/OT (8) HLD (hyperlipidemia): Plan: continue statin therapy (9) Obesity, morbid, BMI 40.0-49.9: Plan: BMI 42 DVT Px: SCDs for now Admission and Anticipated Discharge Date Admission Date: February 03, 2023 Subjective Patient is seen and examined at bedside Denies any vaginal bleeding today Agrees to have blood transfusion Denies any chest pain, dyspnea, dizziness, nausea, abdominal pain Discussed with GAUGE CHECKER today Also discussed with patient's family at bedside Tearful during my encounter Review of Systems Review of Systems: All systems reviewed & are unremarkable except as noted in Subjective Physical Exam Physical Exam: Physical Exam: Vitals signs as noted above General Appearance:Morbidly Obese, no apparent distress Head: normocephalic, Atraumatic Eyes: normal inspection, EOMI Neck: supple, Trachea midline Respiratory/Chest: Normal breath sounds, CTA, No accessory muscle use Cardiovascular: S1, S2, No murmur Abdomen/GI:Soft, Non tender, Bowel sounds present Extremities/Musculoskeletal:normal inspection, no edema Neurologic/Psych:AAOX3, grossly no focal neurological deficits Skin: normal color, warm Results & Data Results & Data Vital Signs (Past 12 Hours) Vital Signs Temp Pulse Pulse Resp BP BP Pulse Ox 02/04/23 15:27 36.6 C 76 18 96/54 L 90 02/04/23 14:30 36.4 C 82 18 107/50 L 98 02/04/23 14:00 37.0 C 80 18 116/70 90 02/04/23 13:45 117/67 02/04/23 13:43 36.8 C 82 20 72/45 L 93 02/04/23 13:18 36.5 C 97 H 18 79/51 L 97 02/04/23 11:23 36.9 C 83 20 117/62 96 02/04/23 08:01 102 H 02/04/23 07:48 36.7 C 83 20 98/61 L 93 O2 Del Method 02/04/23 15:27 02/04/23 14:30 02/04/23 14:00 02/04/23 13:45 02/04/23 13:43 02/04/23 13:18 02/04/23 11:23 Room Air 02/04/23 08:01 02/04/23 07:48 Room Air Laboratory Results Short CBC 02/04/23 Range/Units 06:31 WBC 12.17 H (4.8-10.8) K/ul Hgb 7.1 L D (12.0-16.0) g/dl Hct 21.3 L (37.0-47.0) % Plt Count 124 L (130-400) K/uL BMP 02/04/23 06:31 Sodium 138 Potassium 4.3 Chloride 108 H Carbon Dioxide 24 BUN 12 Creatinine 0.95 Glucose 170 H Calcium 8.3 L D
[2023-02-04 21:01] LABS: Hematocrit (blood only) 23.9 % (37.0-47.0); Hemoglobin 8.1 g/dl (12.0-16.0)
[2023-02-04] MEDS: PANTOprazole 40 MG TAB PO SCH (21:45)
[2023-02-04] MEDS: MEGESTROL ACETATE 40 MG TAB PO SCH (21:45)
[2023-02-05 01:22] LABS: Appearance Urine Clear (Clear); Bacteria Urine Automated Negative (Negative); Bilirubin Urine Negative (Negative); Blood Urine 3+ (Negative); Cast Urine Automated 0 /lpf (0-5); Color Urine Yellow; Epithelial Cell Urine Auto >30 /lpf (0-5); Glucose Urine UA Negative (Negative); Ketones Urine Negative (Negative); Leukocyte Esterase Urine Negative (Negative); Nitrite Urine Negative (Negative); Protein Urine Negative (Negative); RBC Urine Automated >30 /hpf (0-4); Specific Gravity Urine 1.013 (1.000-1.030); Urobilinogen Urine Negative (Negative); pH Urine 5.5 (4.5-7.5)
[2023-02-05] MEDS: SODIUM CHLORIDE 0.9% 1000ML 1,000 ML IV SCH (01:38)
[2023-02-05 08:05] LABS: Hemoglobin 7.6 g/dl (12.0-16.0); Mean Corpuscular Hemoglobin 27.8 pg (25.0-34.0); Mean Corpuscular Volume 84.2 fL (80.0-100.0); Mean Platelet Volume 10.4 fL (9.4-12.4); Platelet Count 103 K/uL (130-400); RDW Coefficient of Variation 14.1 % (11.5-14.5); RDW Standard Deviation 43.3 fL (36.4-46.3); Red Blood Count 2.73 M/uL (4.20-5.40); White Blood Count 12.22 K/ul (4.8-10.8)
[2023-02-05 08:10] LABS: BUN Creatinine Ratio 10.5 (10-20); Calcium 8.9 mg/dl (8.6-10.3); Est GFR (African American) 85.1 ml/min; Est GFR (Non-African American) 73.4 ml/min
[2023-02-05] MEDS: ATORVASTATIN 40 MG TAB PO SCH (08:45)
[2023-02-05] MEDS: MEGESTROL ACETATE 40 MG TAB PO SCH ×2 (08:45→20:52)
[2023-02-05] MEDS: METOPROLOL SUCC 25MG EXT REL TAB PO SCH (08:45)
--- NOTE | 2023-02-05 10:15 | Communication Note ---
Date of Service: February 05, 2023 Pt is a 62 yo female currently admitted for vaginal bleeding. She was scheduled for outpt EUS for pancreatic mass, noted on CT abd/pelvis during her admission on 01/02 for CVA. Pt had been on Eliquis for CVA but last dose 4 days ago. Chart reviewed. She is hemodynamically stable, denies CP/SOB, abd pain, n/v symptoms. Noted Troponin elevated >500. I spoke w pt's hospitalist. Recommend Cardiology and Anesthesia pre-op evaluation. If cleared by both specialties, will proceed with EUS tomorrow by Dr. Ring. Please keep pt NPO after midnight
--- NOTE | 2023-02-05 11:53 | Cardiology Consultation ---
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 Anticoagulation remains on hold due to vaginal bleeding and diagnosis of endometrial carcinoma. Resume when able. Troponin elevation appears chronic without anginal symptoms. There are no ischemic ECG changes. Recommend limited repeat echocardiogram to assess wall motion. If there are no regional wall motion abnormalities, patient will proceed with EUS. Continue metoprolol uninterrupted. History of Present Illness Reason for Consultation: Elevated troponin, preoperative evaluation. Requesting Physician: Dr. Robison Attending Physician: Jacques Robison MD History of Present Illness 62-year-old female with a history of cerebrovascular accident in December 2022 of paroxysmal atrial flutter. Presented to the ER after endometrial biopsy with vaginal bleeding while on Eliquis. Biopsy consistent with endometrial carcinoma. Also has a pancreatic head mass compatible with malignancy and central necrosis. Preoperative cardiovascular evaluation requested prior to EUS. Patient feeling well from a cardiovascular perspective. Denies chest pain or unusual shortness of breath. Troponin elevated on admission, however, appears chronic when compared to previous hospitalization. Echocardiogram performed in December without regional wall motion abnormality. No ischemic EKG changes on admission. Telemetry feels sinus rhythm with heart rate ranging 80 to 90 bpm. No recurrent vaginal bleeding this a.m. Offers no concerns/complaints. Allergies Allergy/AdvReac Type Severity Reaction Status Date / Time No Known Allergies Allergy Unverified 01/30/23 08:16 Home Medications Medication Instructions Recorded Confirmed Type clonazepam 0.5 mg tablet 0 mg PO BID PRN Anxiety 01/02/23 01/30/23 History nitroglycerin 0.3 mg sublingual 0 mg sublingual UD 01/02/23 01/30/23 History tablet atorvastatin 40 mg tablet 40 mg PO QAM 30 days #30 tabs 01/08/23 02/03/23 Rx losartan 50 mg tablet 50 mg PO BID 30 days #60 tabs 01/08/23 02/03/23 Rx metoprolol succinate 25 mg 25 mg PO QAM 30 days #30 tabs 01/08/23 02/03/23 Rx tablet,extended release 24 hr apixaban 5 mg tablet (Eliquis) 5 mg PO BID 01/30/23 02/03/23 History aspirin 81 mg tablet,delayed 0 mg PO QAM 02/03/23 History release pantoprazole 40 mg tablet,delayed 40 mg PO HS 02/03/23 02/03/23 History release Patient History Medical History Anxiety CVA (cerebral vascular accident) 01/02/23 treated at [facility] - left sided deficits; will follow w/ S neuro (06/2023 soonest appointment) GERD (gastroesophageal reflux disease) History of transesophageal echocardiography (GILBERTO) HLD (hyperlipidemia) HTN (hypertension) does not follow w/ cardio, has an appointment scheduled to see [facility] cardio 02/19/2023 Hx of mammogram Hx of rheumatic fever childhood Mass of pancreas Obesity, morbid, BMI 40.0-49.9 Paroxysmal atrial flutter Poor historian SVT (supraventricular tachycardia) Surgical History History of esophagogastroduodenoscopy (EGD) Hx of appendectomy Hx of colonoscopy Family History Father , age 64 prostate cancer Prostate cancer Grandmother (Paternal) Cancer Breast cancer Social History Smoking Status: Never smoker Second Hand Exposure: No; Do You Dip or Chew Tobacco: No; Tobacco Cessation Education Requested by Patient: No Hx Alcohol Use: Yes Alcohol Intake Frequency: Monthly or Less Hx Substance Use: No Preferred Language: Hungarian Communication Ability: Effective Circular Ripsaw Operator Required: No Beliefs That Will Affect Care: None Current Living Situation: Spouse current occupational status: employed 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 Other Information That Helps Us Care for You: No Feels Safe at Home: Yes Safety Concerns: Feels Safe At This Time Assistive Devices: Walker Review of Systems Review of Systems: All systems reviewed & are unremarkable except as noted in Subjective Physical Exam Constitutional: well nourished and + obese Respiratory: no respiratory distress, no labored breathing and no retractions Auscultation: no crackles, no rales, no rhonchi and no wheezes Cardiovascular: Rate/Rhythm: regular rate and regular rhythm Heart Sounds: normal S1 and normal S2; no murmur Vessels: radial pulses present; no JVD and no carotid bruit Extremities: no edema Gastrointestinal (Abdomen): Inspection/Auscultation: normal bowel sounds; abdomen not distended Percussion/Palpation: abdomen soft; abdomen nontender and no guarding Neurologic: CN's II-XI intact bilaterally and moves all extremities Results & Data Vital Signs (Past 12 Hours) Vital Signs Temp Pulse Pulse Resp BP Pulse Ox O2 Del Method 02/05/23 11:38 36.7 C 78 18 104/55 L 100 Room Air 02/05/23 08:27 36.7 C 114 H 18 135/70 98 Room Air 02/05/23 07:35 68 02/05/23 02:10 36.8 C 68 18 138/70 94 Room Air Laboratory Results Cardiac Enzymes 02/04/23 Range/Units 12:04 Troponin I High Sens 513.9 H* (0-14) pg/ml CBC 02/04/23 02/05/23 Range/Units 20:45 07:42 WBC 12.22 H (4.8-10.8) K/ul RBC 2.73 L (4.20-5.40) M/uL Hgb 8.1 L 7.6 L (12.0-16.0) g/dl Hct 23.9 L 23.0 L (37.0-47.0) % Plt Count 103 L (130-400) K/uL Comprehensive Metabolic Panel 02/05/23 Range/Units 07:42 Sodium 138 (136-145) mmol/L Potassium 4.0 (3.5-5.1) mmol/L Chloride 108 H (98-107) mmol/L Carbon Dioxide 25 (21-32) mmol/L BUN 9 (6-23) mg/dl Creatinine 0.86 (0.6-1.2) mg/dl Glucose 147 H (70-99(Fasting)) mg/dl Calcium 8.9 (8.6-10.3) mg/dl Intake and Output 02/04/23 02/05/23 02/05/23 22:59 06:59 14:59 Intake Total 1410 / 1680 150 / 1680 500 / 500 Output Total 300 / 300 Balance 1410 / 1380 -150 / 1380 500 / 500 Intake: IV 1000 / 1000 500 / 500 Sodium Chloride 0.9% 1000ML 1, 1000 / 1000 500 / 500 000 ml @ 60 mls/hr IV .[id number] [facility] Rx#:[id number] Oral 100 / 370 150 / 370 Intake (Blood Product) Amt 310 / 310 Packed Cells, Leukoreduced 310 / 310 Unit [id number] Output: Urine 300 / 300 Other: Weight 113.3 kg 111.5 kg Weight Measurement Method Standing Scale Built in [facility]
[2023-02-05 16:03] LABS: Hematocrit (blood only) 25.2 % (37.0-47.0); Hemoglobin 8.1 g/dl (12.0-16.0)
--- NOTE | 2023-02-05 18:00 | Hospitalist Progress Note ---
Date of Service February 05, 2023 Assessment & Plan (1) Vaginal bleeding: Plan: Postprocedural vaginal hemorrhage due to biopsy in the setting of Eliquis Endometrial carcinoma ? Metastatic Pancreatic mass --Abdominal MRI on 01/04/2023:Pancreatic head mass is known to enhance with some central hypoenhancement compatible with malignancy with central necrosis. No vascular involvement is seen. There is a subcentimeter adjacent lymph node. Additional findings are as above. Hepatic steatosis. -- Reviewed outpatient pathology report consistent with endometrial endometrioid carcinoma, FIGO 1 in background of EIN and polyp -- Needs surgical staging with gynecology oncologist at [facility] [place] Appreciate TOOTH GRINDER input Aspirin discontinued Eliquis on hold Needs follow-up with TOOTH GRINDER as outpatient upon discharge Continue Megace Appreciate GI Input Continue to hold Eliquis as planned for endoscopic ultrasound and possible biopsy of pancreatic mass tomorrow N.p.o. after midnight Symptomatic anemia Thrombocytopenia Secondary to above Monitor CBC and transfuse PRBCs as needed Hb 8.1 today (2) Elevated troponin: Plan: Chronic troponin elevation Likely secondary to demand ischemia due to anemia No known CAD --ECHO: No regional wall motion abnormalities on echo Patient denies chest pain, dyspnea Pt was largely non-compliant and avoided medical evaluations per records (3) Leukocytosis: Plan: likely reactive Blood cultures negative to date Monitor (4) Anemia: Plan: acute on chronic: Anemia of chronic disease Worsened due to vaginal bleeding Monitor CBC (5) SVT (supraventricular tachycardia): Plan: continue metoprolol (6) Paroxysmal atrial flutter: Plan: continue metoprolol Resume Apixaban--ok to resume per OBGYN Continue to hold as planned for endoscopic ultrasound and pancreatic mass biopsy tomorrow (7) Left-sided weakness: Plan: at baseline, per has continuously improved since stroke continue PT/OT (8) HLD (hyperlipidemia): Plan: continue statin therapy (9) Obesity, morbid, BMI 40.0-49.9: Plan: BMI 42 DVT Px: SCDs for now Admission and Anticipated Discharge Date Admission Date: February 03, 2023 Subjective Patient is seen and examined at bedside No new complaints today Denies any recurrence of vaginal bleed Plan for endoscopic ultrasound tomorrow Discussed with GI today Hemoglobin stable today Denies any chest pain, dyspnea, dizziness, nausea, abdominal pain Review of Systems Review of Systems: All systems reviewed & are unremarkable except as noted in Subjective Physical Exam Physical Exam: Physical Exam: Vitals signs as noted above General Appearance:Morbidly Obese, no apparent distress Head: normocephalic, Atraumatic Eyes: normal inspection, EOMI Neck: supple, Trachea midline Respiratory/Chest: Normal breath sounds, CTA, No accessory muscle use Cardiovascular: S1, S2, No murmur Abdomen/GI:Soft, Non tender, Bowel sounds present Extremities/Musculoskeletal:normal inspection, no edema Neurologic/Psych:AAOX3, grossly no focal neurological deficits Skin: normal color, warm Results & Data Results & Data Vital Signs (Past 12 Hours) Vital Signs Temp Pulse Pulse Resp BP Pulse Ox O2 Del Method 02/05/23 16:25 36.8 C 73 18 135/73 100 Room Air 02/05/23 11:38 36.7 C 78 18 104/55 L 100 Room Air 02/05/23 08:27 36.7 C 114 H 18 135/70 98 Room Air 02/05/23 07:35 68 Laboratory Results Short CBC 02/04/23 02/05/23 02/05/23 Range/Units 20:45 07:42 15:20 WBC 12.22 H (4.8-10.8) K/ul Hgb 8.1 L 7.6 L 8.1 L (12.0-16.0) g/dl Hct 23.9 L 23.0 L 25.2 L (37.0-47.0) % Plt Count 103 L (130-400) K/uL BMP 02/05/23 07:42 Sodium 138 Potassium 4.0 Chloride 108 H Carbon Dioxide 25 BUN 9 Creatinine 0.86 Glucose 147 H Calcium 8.9 Urine 02/05/23 Range/Units 01:10 Urine Color Yellow Urine Appearance Clear (Clear) Urine pH 5.5 (4.5-7.5) Ur Specific [place] 1.013 (1.000-1.030) Urine Protein Negative (Negative) Urine Glucose (UA) Negative (Negative)
[2023-02-05] MEDS: PANTOprazole 40 MG TAB PO SCH (20:53)
[2023-02-05] MEDS: clonazePAM 0.5 MG TAB PO PRN (23:20)
[2023-02-06 07:57] LABS: BUN Creatinine Ratio 11.1 (10-20); Calcium 9.2 mg/dl (8.6-10.3); Creatinine Clr Calc Pharmacy 90.7 ml/min; Est GFR (African American) 91.5 ml/min; Est GFR (Non-African American) 78.9 ml/min; Potassium 3.9 mmol/L (3.5-5.1)
[2023-02-06 08:00] LABS: Hematocrit (blood only) 22.6 % (37.0-47.0); Hemoglobin 7.6 g/dl (12.0-16.0); Mean Corpuscular Hemoglobin 28.3 pg (25.0-34.0); Mean Corpuscular Hgb Conc 33.6 g/dL (32.0-36.0); Mean Platelet Volume 10.5 fL (9.4-12.4); Platelet Count 91 K/uL (130-400); Platelet Estimate Decreased (Normal); RDW Coefficient of Variation 14.3 % (11.5-14.5); Red Blood Count 2.69 M/uL (4.20-5.40); White Blood Count 12.09 K/ul (4.8-10.8)
--- NOTE | 2023-02-06 09:16 | Gastroenterology Progress Note ---
Date of Service February 06, 2023 Assessment & Plan (1) Mass of pancreas: Plan: Pt is a 62 yo female admitted for vaginal bleeding, followed for pancreas mass noted on previous CT abd/pelvis. - Hold Eliquis - NPO - EUS by Dr. Ring today - GI recs to follow after EUS completed Admission and Anticipated Discharge Date Admission Date: February 03, 2023 Supervising Physician Co-Signing Physician Notes I saw and evaluated the patient. The patient had presented with what appears to be metastatic uterine cancer. She does have a large pancreatic head mass, given the clinical indication we will proceed with upper endoscopy and endoscopic ultrasound for further assessment of this mass today. If the patient is found to have evidence of biliary obstruction we will likely do an ERCP as well for placement of a biliary stent as the patient is quite ill and presenting for multiple procedures may pose some difficulty for her health problems. I discussed risks and benefits of the procedures to include bleeding, infection, perforation, pain, pancreatitis, insufficient cellularity, failed biliary cannulation and the need for follow-up studies. Given the patient's comorbid medical illnesses she is at very high risk of perioperative complications. This was fully discussed with her. Subjective Pt denies abd pain, n/v, fever, chills. Has been NPO for EUS today Review of Systems Review of Systems: All systems reviewed & are unremarkable except as noted in HPI & below Physical Exam Constitutional: WD/WN, vitals as above well groomed, cooperative and comfortable Eyes: PERRL, conjunctivae normal, anicteric sclerae ENMT: external ear and nose normal, oropharynx normal Respiratory: normal respiratory effort, lungs clear to auscultation Cardiovascular: RRR, no murmur, no edema Gastrointestinal (Abdomen): Mild TTP (generalized), BS hypoactive, soft Skin: no rashes, warm and dry no jaundice Psychiatric: A+Ox3, euthymic affect Lymphatic: no lymphedema Results & Data Vital Signs (Past 12 Hours) Vital Signs Temp Pulse Pulse Pulse Resp BP Pulse Ox 02/06/23 07:50 36.6 C 78 16 116/60 94 02/06/23 07:46 73 02/05/23 22:01 83 02/06/23 02:32 36.6 C 82 18 105/73 97 02/05/23 22:00 37 C 76 16 94/50 L 94 O2 Del Method 02/06/23 07:50 Room Air 02/06/23 07:46 02/05/23 22:01 02/06/23 02:32 Room Air 02/05/23 22:00 Room Air Diagnostic Findings MRI 01-02-23 Gallbladder and biliary tree: Cholelithiasis is seen without evidence of cholecystitis. No intra- or extrahepatic biliary ductal dilation. Pancreas: There is enlargement of the distal pancreatic duct due to a pancreatic head mass measuring approximately 41 x 36 mm. This mass demonstrates rim enhancement with central hypoenhancement compatible with necrosis. The portal vein and branches of the aorta are not involved.
[2023-02-06] MEDS ORDERED: fentaNYL citrate PF 100 MCG/2 ML VIAL ONE (10:54)
[2023-02-06] MEDS ORDERED: ONDANSETRON INJ 2 MG/ML 2 ML VIAL IV PRN (11:03)
[2023-02-06] MEDS ORDERED: NALOXONE HCL 0.4 MG/1 ML VIAL/CARP IV PRN (11:03)
[2023-02-06] MEDS ORDERED: PROMETHAZINE HCL 12.5 MG in SODIUM CHLORIDE 0.9% 50 ML IV PRN (11:03)
[2023-02-06] MEDS ORDERED: fentaNYL citrate PF 100 MCG/2 ML VIAL IV PRN (11:03)
[2023-02-06] MEDS ORDERED: LABETALOL HCL IV 5 MG/ML 20ML IV PRN (11:03)
[2023-02-06] MEDS ORDERED: ATROPINE SULFATE 0.1 MG/ML 10ML SYR IV PRN (11:03)
[2023-02-06] MEDS ORDERED: ePHEDrine sulfate 50 MG/ML AMP IV PRN (11:03)
[2023-02-06] MEDS ORDERED: FLUMAZENIL 0.1 MG/1 ML 10 ML VIAL IV PRN (11:03)
--- NOTE | 2023-02-06 11:03 | Anesthesiology Consultation ---
Date of Service February 06, 2023 Assessment & Plan Chart Review Chart Review: Acceptable Risk for Surgery and Patient NOT seen in Pre Admission Testing Consults Requested none ASA ASA4 Proposed Anesthesia Anesthesia Type: General Risk / Benefits Reviewed With: PT / POA / Parent / Guardian, Accepts Plan and Informed Consent Obtained History Surgery Operation Date: 02/06/23 11:05 Proposed Procedures p Endoscopic Ultrasonography Tanesha - Odilia Ring, Height/Weight Height: 5 ft 4 in Weight: 112.4 kg Allergies Allergy/AdvReac Type Severity Reaction Status Date / Time No Known Allergies Allergy Verified 02/06/23 10:40 Medications Home Medications Medication Instructions Recorded Confirmed Last Taken clonazepam 0.5 mg tablet 0 mg PO BID PRN Anxiety 01/02/23 01/30/23 Unknown nitroglycerin 0.3 mg sublingual 0 mg sublingual UD 01/02/23 01/30/23 Unknown tablet atorvastatin 40 mg tablet 40 mg PO QAM 30 days #30 tabs 01/08/23 02/03/23 Unknown losartan 50 mg tablet 50 mg PO BID 30 days #60 tabs 01/08/23 02/03/23 Unknown metoprolol succinate 25 mg 25 mg PO QAM 30 days #30 tabs 01/08/23 02/03/23 Unknown tablet,extended release 24 hr apixaban 5 mg tablet (Eliquis) 5 mg PO BID 01/30/23 02/03/23 Unknown aspirin 81 mg tablet,delayed 0 mg PO QAM 02/03/23 Unknown release pantoprazole 40 mg tablet,delayed 40 mg PO HS 02/03/23 02/03/23 Unknown release Active Medications Generic Name Dose Route Start Last Admin Trade Name Jaime PRN Reason Stop Dose Admin Acetaminophen 650 mg 02/03/23 18:27 02/05/23 23:20 Acetaminophen 325 Mg Tab PO 03/05/23 18:26 650 mg Q4H PRN Administration pain/fever Atorvastatin Calcium 40 mg 02/04/23 09:00 02/05/23 08:45 Atorvastatin 40 Mg Tab PO 03/06/23 08:59 40 mg QAM RAMON Administration Clonazepam 0.5 mg 02/03/23 18:31 02/05/23 23:20 Clonazepam 0.5 Mg Tab PO 03/05/23 18:30 0.5 mg TID PRN Administration Anxiety Megestrol Acetate 20 mg 02/04/23 21:00 02/05/23 20:52 Megestrol Acetate 40 Mg Tab PO 03/06/23 20:59 20 mg BID RAMON Administration Metoprolol Succinate 25 mg 02/04/23 09:00 02/05/23 08:45 Metoprolol Succ 25mg Ext Rel Tab PO 03/06/23 08:59 25 mg QAM RAMON Administration Ondansetron HCl 4 mg 02/03/23 18:27 02/04/23 14:30 Ondansetron Inj 2 Mg/Ml 2 Ml Vial IV 03/05/23 18:26 4 mg Q6H PRN Administration Nausea Pantoprazole Sodium 40 mg 02/03/23 21:00 02/05/23 20:53 Pantoprazole 40 Mg Tab PO 03/05/23 20:59 40 mg HS RAMON Administration NPO Date Last Intake of Fluids: 02/06/23 Time Last Intake of Fluids: 00:00 Date Last Intake of Solids: 02/04/23 Time Last Intake of Solids: 18:00 Past Medical History Medical History Anxiety CVA (cerebral vascular accident) 01/02/23 treated at [facility] - left sided deficits; will follow w/ [facility] neuro (06/2023 soonest appointment) GERD (gastroesophageal reflux disease) History of transesophageal echocardiography ([facility]ERTO) HLD (hyperlipidemia) HTN (hypertension) does not follow w/ cardio, has an appointment scheduled to see [facility] cardio 02/19/2023 Hx of mammogram Hx of rheumatic fever childhood Mass of pancreas Obesity, morbid, BMI 40.0-49.9 Paroxysmal atrial flutter Poor historian SVT (supraventricular tachycardia) Exercise / Class Metabolic Activity III < 4 Walking/Shop/Light housework Past Family History Family History Father , age 64 prostate cancer Prostate cancer Grandmother (Paternal) Cancer Breast cancer Past Surgical History Surgical History History of esophagogastroduodenoscopy (EGD) Hx of appendectomy Hx of colonoscopy Past Anesthesia History No Hx of Anesthesia Complications and No Family Hx of Anesthesia Complications History of PONV No Hx of PONV and No Hx of Motion Sickness Social History Smoking Status: Never smoker Do You Dip or Chew Tobacco: No Hx Alcohol Use: Yes alcohol intake frequency: holidays/special occasions only Hx Substance Use: No substance use type: does not use Physical Exam Vital Signs Last Vital Signs Temp 36.8 C 02/06/23 10:42 Pulse 78 02/06/23 10:42 Resp 18 02/06/23 10:42 BP 135/54 L 02/06/23 10:42 Pulse Ox 94 02/06/23 10:42 O2 Del Method Room Air 02/06/23 10:42 Constitutional + morbidly obese; no acute distress ENMT Mouth: + dentition abnormality and + poor dentition Thyromental Distance: < 3.5 Finger Breadths Mallampati Class: III Neck normal visual inspection, trachea midline, + short neck and + thick neck; neck extension not limited Respiratory normal respiratory effort Auscultation: + diminished lung sounds Cardiovascular Rate/Rhythm: regular rate and regular rhythm Heart Sounds: no murmur Vessels: no carotid bruit Musculoskeletal Spine: normal cervical ROM and no pain with cervical ROM Extremities: + limited ROM of extremities (left sided weakness) Neurologic moves all extremities Motor/Sensory: + sensory deficit Psychiatric Orientation: alert and oriented x 3 Testing Laboratory Results 02/06/23 07:15 02/06/23 07:15 PT 12.9 Seconds (9.0-12.0) H 02/03/23 14:27 INR 1.2 (0.9-1.1) H 02/03/23 14:27 APTT 27.8 Seconds (21.0-31.0) 02/03/23 14:27 Urine Color Yellow 02/05/23 01:10 Urine Appearance Clear (Clear) 02/05/23 01:10 Urine pH 5.5 (4.5-7.5) 02/05/23 01:10 Ur Specific [place] 1.013 (1.000-1.030) 02/05/23 01:10 Urine Protein Negative (Negative) 02/05/23 01:10 Urine Glucose (UA) Negative (Negative) 02/05/23 01:10 Urine Ketones Negative (Negative) 02/05/23 01:10 Urine Nitrite Negative (Negative) 02/05/23 01:10 Ur Leukocyte Esterase Negative (Negative) 02/05/23 01:10 Urine WBC (Auto) 1-5 /hpf (0-5) 02/05/23 01:10 Urine RBC (Auto) >30 /hpf (0-4) H 02/05/23 01:10 U Hyaline Cast (Auto) 0 /lpf (0-5) 02/05/23 01:10 U Epithel Cells (Auto) >30 /lpf (0-5) H 02/05/23 01:10 Urine Bacteria (Auto) Negative (Negative) 02/05/23 01:10 Blood Type O Positive 02/03/23 15:01 Antibody Screen NEGATIVE 02/03/23 15:01 02/03/23 16:08 Aerobic Blood Culture - Preliminary Blood No growth in Aerobic bottle after 48 hours. Anaerobic Blood Culture - Final 02/03/23 16:08 Aerobic Blood Culture - Preliminary Blood No growth in Aerobic bottle after 48 hours. Anaerobic Blood Culture - Final
[2023-02-06] MEDS ORDERED: PROPOFOL IV EMULSION 10 MG/ML 20 ML VIAL IV ONE ×2 (11:34→12:58)
[2023-02-06] MEDS ORDERED: LIDOCAINE 2% 2 ML VIAL/AMP(20MG/ML) INFIL ONE (11:34)
[2023-02-06] MEDS ORDERED: ONDANSETRON INJ 2 MG/ML 2 ML VIAL ONE (12:46)
[2023-02-06] MEDS ORDERED: DEXAMETHASONE SOD INJ 4 MG/ML VIAL ONE (12:46)
[2023-02-06] MEDS ORDERED: GLYCOPYRROLATE 0.2 MG/ML VIAL ONE (12:47)
[2023-02-06] MEDS ORDERED: SUGAMMADEX SODIUM 200 MG/2 ML VIAL IV ONE (12:50)
[2023-02-06] MEDS ORDERED: ESMOLOL HCL INJ 10 MG/ML 10ML VIAL IV ONE (12:52)
--- NOTE | 2023-02-06 13:15 | Post Operative Brief Note ---
Immediate Post Op Note v1 Date of Surgery February 06, 2023 Pre & Post Diagnosis Operation Date: 02/06/23 11:05 Pre-Op Diagnosis: Head of Pancreas mass Post-Op Diagnosis: Normal EGD, pacreatic mass with biliary obstruction I identified the patient and participated in the time-out.: Yes Procedure Operation Date: 02/06/23 11:05 Actual Procedures s Esophagogastroduodenoscopy(Not Applicable) - Odilia Ring DO p Endoscopic Ultrasonography Upper with Fine needle aspiration(Not Applicable) - Odilia Ring DO s Endoscopic Retrograde Cholangiopancreato(Not Applicable) - Odilia Ring DO Surgeon Odilia Ring, DO Mechanism Inspector none Estimated Blood Loss 0 Findings Consistent with Post-Op Diagnosis
[2023-02-06] MEDS ORDERED: CIPROFLOXACIN / D5W 400 MG/200 ML BAG IV STA (13:21)
--- NOTE | 2023-02-06 13:32 | GI REPORT ---
Patient Name: Jacque Spivey Procedure Date: 02/06/2023 11:37 AM Date of : 1960 Admit Type: Inpatient Age: 62 Gender: Female Attending MD: Odilia Ring DO, Procedure: Upper GI endoscopy Providers: Odilia Ring DO Referring MD: Jacques Robison Md Indications: Abnormal CT of the GI tract, Abnormal MRI of the GI tract Medicines: General Anesthesia Complications: No immediate complications. Estimated blood loss: Minimal. Estimated Blood Loss: Estimated blood loss: none. Procedure: Pre-Anesthesia Assessment: - Prior to the procedure, a History and Physical was performed, and patient medications, allergies and sensitivities were reviewed. The patient's tolerance of previous anesthesia was reviewed. - The risks and benefits of the procedure and the sedation options and risks were discussed with the patient. All questions were answered and informed consent was obtained. - Patient identification and proposed procedure were verified prior to the procedure by the physician, the nurse and the warehouse team member. The procedure was verified in the pre-procedure area in the procedure room. - Pre-procedure physical examination revealed no contraindications to sedation. - ASA Grade Assessment: IV - A patient with severe systemic disease that is a constant threat to life. - After reviewing the risks and benefits, the patient was deemed in satisfactory condition to undergo the procedure. - The anesthesia plan was to use general anesthesia. - Immediately prior to administration of medications, the patient was re-assessed for adequacy to receive sedatives. - The heart rate, respiratory rate, oxygen saturations, blood pressure, adequacy of pulmonary ventilation, and response to care were monitored throughout the procedure. - The physical status of the patient was re-assessed after the procedure. After obtaining informed consent, the endoscope was passed under direct vision. Throughout the procedure, the patient's blood pressure, pulse, and oxygen saturations were monitored continuously. The Endoscope was introduced through the mouth, and advanced to the third part of duodenum. The upper GI endoscopy was accomplished without difficulty. The patient tolerated the procedure well. Findings: The examined esophagus was normal. The Z-line was regular and was found 35 cm from the incisors. The entire examined stomach was normal. The examined duodenum was normal. Impression: - Normal esophagus. - Z-line regular, 35 cm from the incisors. - Normal stomach. - Normal examined duodenum. - No specimens collected. Recommendation: - Perform an upper endoscopic ultrasound (UEUS) today. Odilia Ring D.O. Odilia Ring, 02/06/2023 1:31:39 PM This report has been signed electronically. Note Initiated On: 02/06/2023 11:37 AM Number of Addenda: 0 I attest to the content of the Intraoperative Record and orders documented therein, exceptions below {[id number]}
--- NOTE | 2023-02-06 13:39 | GI REPORT ---
Patient Name: Jacque Spivey Procedure Date: 02/06/2023 11:38 AM Date of : 1960 Admit Type: Inpatient Age: 62 Gender: Female Attending MD: Odilia Ring DO, Procedure: Upper EUS Providers: Odilia Ring DO Referring MD: Referred Self Indications: Suspected mass in pancreas on MRI Medicines: General Anesthesia Complications: No immediate complications. Estimated blood loss: Minimal. Estimated Blood Loss: Estimated blood loss was minimal. Procedure: Pre-Anesthesia Assessment: - Prior to the procedure, a History and Physical was performed, and patient medications, allergies and sensitivities were reviewed. The patient's tolerance of previous anesthesia was reviewed. - The risks and benefits of the procedure and the sedation options and risks were discussed with the patient. All questions were answered and informed consent was obtained. - Patient identification and proposed procedure were verified prior to the procedure by the physician, the nurse and the senior contract specialist. The procedure was verified in the procedure room. - Pre-procedure physical examination revealed no contraindications to sedation. - ASA Grade Assessment: IV - A patient with severe systemic disease that is a constant threat to life. - After reviewing the risks and benefits, the patient was deemed in satisfactory condition to undergo the procedure. - The anesthesia plan was to use general anesthesia. - Immediately prior to administration of medications, the patient was re-assessed for adequacy to receive sedatives. - The heart rate, respiratory rate, oxygen saturations, blood pressure, adequacy of pulmonary ventilation, and response to care were monitored throughout the procedure. - The physical status of the patient was re-assessed after the procedure. After obtaining informed consent, the endoscope was passed under direct vision. Throughout the procedure, the patient's blood pressure, pulse, and oxygen saturations were monitored continuously. The scope was introduced through the mouth, and advanced to the second part of duodenum. The upper EUS was accomplished without difficulty. The patient tolerated the procedure well. Findings: ENDOSONOGRAPHIC FINDING: : There was dilation in the common bile duct which measured up to 9 mm. There was a suggestion of a stricture in the lower third of the main bile duct as it coursed through the patient's pancreatic head mass. There was modest dilation in the gallbladder which measured up to 35 mm. Multiple stones were visualized endosonographically in the gallbladder. They were hyperechoic and characterized by shadowing. An oval mass was identified in the pancreatic head. The mass was hypoechoic. The mass measured 45 mm by 35 mm in maximal cross-sectional diameter. The outer margins were irregular. There was sonographic evidence suggesting invasion into the portal vein (manifested by abutment). An intact interface was seen between the mass and the superior mesenteric artery suggesting a lack of invasion. The remainder of the pancreas was examined. The endosonographic appearance of parenchyma and the upstream pancreatic duct indicated duct dilation, a maximum duct diameter of 4 mm and parenchymal atrophy. Fine needle aspiration for cytology was performed. Color Doppler imaging was utilized prior to needle puncture to confirm a lack of significant vascular structures within the needle path. Four passes were made with the 25 gauge needle using a transduodenal approach. A stylet was used. A sweet pickle maker was present and performed a preliminary cytologic examination. Final cytology results are pending. One enlarged lymph node was visualized in the paradise hepatis region. It measured 6 mm by 5 mm in maximal cross-sectional diameter. The node was oval, hypoechoic and had well defined margins. An oval mass was identified endosonographically in the left adrenal gland. The mass was anechoic. The mass measured 11 mm by 11 mm in maximal cross-sectional diameter. The outer margins were smooth. An intact interface was seen between the mass and the adjacent structures suggesting a lack of invasion. Impression: - There was dilation in the common bile duct which measured up to 9 mm. - There was a suggestion of a stricture in the lower third of the main bile duct. - There was dilation in the gallbladder which measured up to 35 mm. - Multiple stones were visualized endosonographically in the gallbladder. - A mass was identified in the pancreatic head. This was staged T3 N1 Mx by endosonographic criteria. The staging applies if malignancy is confirmed. Fine needle aspiration performed. The mass appeared to be obstructing the distal common bile duct - One enlarged lymph node was visualized in the paradise hepatis region. - A mass measuring 11 mm by 11 mm was identified endosonographically in the left adrenal gland. This was thought to represent an adrenal adenoma on other imaging studies. Recommendation: - Perform an ERCP today given the biliary stricture involving obstruction. - Await cytology results. Odilia Ring D.O. Odilia Ring DO 02/06/2023 1:39:09 PM This report has been signed electronically. Note Initiated On: 02/06/2023 11:38 AM Number of Addenda: 0 I attest to the content of the Intraoperative Record and orders documented therein, exceptions below {[id number]}
--- NOTE | 2023-02-06 13:47 | GI REPORT ---
Patient Name: Jacque Spivey Procedure Date: 02/06/2023 11:39 AM Date of : 1960 Admit Type: Inpatient Age: 62 Gender: Female Attending MD: Odilia Ring DO, Procedure: ERCP Providers: Odilia Ring DO Referring MD: Jacques Robison Md Indications: Abnormal endoscopic ultrasound of the biliary system, Malignant tumor of the head of pancreas Medicines: General Anesthesia Complications: No immediate complications. Estimated blood loss: Minimal. Estimated Blood Loss: Estimated blood loss: Minimal. Procedure: Pre-Anesthesia Assessment: - Prior to the procedure, a History and Physical was performed, and patient medications, allergies and sensitivities were reviewed. The patient's tolerance of previous anesthesia was reviewed. - The risks and benefits of the procedure and the sedation options and risks were discussed with the patient. All questions were answered and informed consent was obtained. - Patient identification and proposed procedure were verified prior to the procedure by the physician, the nurse and the vallez filter operator. The procedure was verified in the procedure room. - Pre-procedure physical examination revealed no contraindications to sedation. - ASA Grade Assessment: IV - A patient with severe systemic disease that is a constant threat to life. - After reviewing the risks and benefits, the patient was deemed in satisfactory condition to undergo the procedure. - The anesthesia plan was to use general anesthesia. - Immediately prior to administration of medications, the patient was re-assessed for adequacy to receive sedatives. - The heart rate, respiratory rate, oxygen saturations, blood pressure, adequacy of pulmonary ventilation, and response to care were monitored throughout the procedure. - The physical status of the patient was re-assessed after the procedure. After obtaining informed consent, the scope was passed under direct vision. Throughout the procedure, the patient's blood pressure, pulse, and oxygen saturations were monitored continuously. The Duodenoscope was introduced through the mouth, and advanced to the duodenum and used to inject contrast into the bile duct and ventral pancreatic duct. The patient tolerated the procedure well. The ERCP was performed with moderate difficulty due to difficulty passing guidewires through biliary ductal stenosis and a partially obstructing mass. Successful completion of the procedure was aided by performing the maneuvers documented (below) in this report. Findings: The supervisor assembly stock film was normal. The esophagus was successfully intubated under direct vision without detailed examination of the pharynx, larynx, and associated structures, and upper GI tract. The upper GI tract was grossly normal. The major papilla was bulging. The ventral pancreatic duct was inadvertently cannulated with the short-nosed traction sphincterotome and 0.035 in Acrobat 2 guidewire without any complications. This wire was left in place to manager helpdesk in biliary cannulation with a double wire technique. Due to persistent difficulty with cannulation, one 5 Fr by 5 cm pancreatic stent with no external flaps and no internal flaps was placed into the ventral pancreatic duct. The stent was positioned too far downstream (towards the lumen of the GI tract) and thus removed. The sphincterotome was transitioned to an [place] clever cut. The bile duct was deeply cannulated with the short-nosed traction sphincterotome and 0.025 in Angled Visiglide guidewire. Contrast was injected. I personally interpreted the bile duct images. Contrast extended to the hepatic ducts. The middle third of the main bile duct and upper third of the main bile duct were moderately dilated, with a mass causing an obstruction (as seen on prior imaging studies). The largest diameter was 9 mm. Biliary sphincterotomy was made with a CleverCut distal wire sphincterotome using ERBE electrocautery. There was no post-sphincterotomy bleeding. One 10 Fr by 8 cm covered metal stent was placed 7.5 cm into the common bile duct ([place] Viabil, [id number], [id number]). Bile flowed through the stent. The stent was in good position. The endoscope was withdrawn from the patient. Indomethacin 100 mg was given via suppository to decrease the risk of post-ERCP pancreatitis (PEP). Impression: - The major papilla appeared to be bulging. - The upper third of the main bile duct and middle third of the main bile duct were moderately dilated, with a mass causing an obstruction. - A biliary sphincterotomy was performed. - One covered metal stent was placed into the common bile duct. - Indomethacin given to decrease risk of post-ERCP pancreatitis. Recommendation: - Avoid aspirin and nonsteroidal anti-inflammatory medicines for 5 days. - May resume anticoagulation in 72 hours - Clear liquid diet today. - Observe patient's clinical course following today's ERCP with therapeutic intervention. - Use broad spectrum antibiotics for 5 days. Odilia Ring D.O. Odilia Ring DO 02/06/2023 1:47:32 PM This report has been signed electronically. Note Initiated On: 02/06/2023 11:39 AM Number of Addenda: 0 I attest to the content of the Intraoperative Record and orders documented therein, exceptions below {[id number]}
--- NOTE | 2023-02-06 13:49 | Communication Note ---
Date of Service: February 06, 2023 Patient underwent upper endoscopy, endoscopic ultrasound and ultimately ERCP today. The endoscopic ultrasound was notable for a large pancreatic head mass with evidence of impending biliary obstruction. Thus ERCP was then performed for placement of a biliary stent. A fine-needle aspiration was performed from the pancreatic head mass cytology is pending. Indocin 100 mg given Perirectally during the procedure today. Recommendations IV hydration overnight Cipro 400 mg IV BID x 5 days May have clears this evening Avoid nonsteroidals 1 week please May resume anticoagulation in 72
--- NOTE | 2023-02-06 14:05 | Anesthesiology Progress Note ---
Date of Service February 06, 2023 Anesthesia Post Procedure Vital Signs Vital Signs: Temp Pulse Pulse Pulse Resp BP Pulse Ox 02/06/23 13:55 36.6 C 96 H 20 158/71 H 94 02/06/23 13:45 88 18 150/70 H 97 02/06/23 13:35 94 H 19 149/66 H 99 02/06/23 13:28 36.0 C L 105 H 18 139/79 98 02/06/23 10:42 36.8 C 78 18 135/54 L 94 02/06/23 10:05 02/06/23 07:50 36.6 C 78 16 116/60 94 02/06/23 07:46 73 02/05/23 22:01 83 02/06/23 02:32 36.6 C 82 18 105/73 97 02/05/23 20:00 02/05/23 22:00 37 C 76 16 94/50 L 94 02/05/23 19:17 36.7 C 80 18 106/66 94 02/05/23 16:25 36.8 C 73 18 135/73 100 O2 Del Method O2 Flow Rate 02/06/23 13:55 Room Air 02/06/23 13:45 Oxymask 4 02/06/23 13:35 Oxymask 8 02/06/23 13:28 Oxymask 8 02/06/23 10:42 Room Air 02/06/23 10:05 Room Air 02/06/23 07:50 Room Air 02/06/23 07:46 02/05/23 22:01 02/06/23 02:32 Room Air 02/05/23 20:00 Room Air 02/05/23 22:00 Room Air 02/05/23 19:17 Room Air 02/05/23 16:25 Room Air Transfer of Care Handoff Completed per policy Notes Mental Status: alert / awake / arousable Patient Amnestic to Procedure: Yes Nausea / Vomiting: adequately controlled Pain: adequately controlled Airway Patency, RR, SpO2: stable & adequate BP & HR: stable & adequate Hydration State: stable & adequate Anesthetic Complications: no major complications apparent
[2023-02-06] MEDS: ATORVASTATIN 40 MG TAB PO SCH (14:24)
[2023-02-06] MEDS: MEGESTROL ACETATE 40 MG TAB PO SCH ×2 (14:24→20:23)
[2023-02-06] MEDS: METOPROLOL SUCC 25MG EXT REL TAB PO SCH (14:24)
[2023-02-06] MEDS ORDERED: PROMETHAZINE HCL 6.25 MG in SODIUM CHLORIDE 0.9% 50 ML IV ONE (14:45)
[2023-02-06] MEDS: LACTATED RINGER'S 1,000 ML IV SCH (14:58)
--- NOTE | 2023-02-06 15:58 | Hospitalist Progress Note ---
Date of Service February 06, 2023 Assessment & Plan (1) Vaginal bleeding: Plan: Postprocedural vaginal hemorrhage due to biopsy in the setting of Eliquis Endometrial carcinoma ? Metastatic Pancreatic mass Bile duct obstruction secondary to above --Abdominal MRI on 01/04/2023:Pancreatic head mass is known to enhance with some central hypoenhancement compatible with malignancy with central necrosis. No vascular involvement is seen. There is a subcentimeter adjacent lymph node. Additional findings are as above. Hepatic steatosis. -- Reviewed outpatient pathology report consistent with endometrial endometrioid carcinoma, FIGO 1 in background of EIN and polyp -- Needs surgical staging with gynecology oncologist [place] [facility] [place]S/P upper endoscopic ultrasound, biliary sphincterotomy and metal stent placement for bile duct obstruction secondary to mass on 02/06/[address] Ring Appreciate [employer], GI input Aspirin discontinued Eliquis on hold Needs follow-up with [employer] ATTENDANT and GI as outpatient Continue Megace Avoid NSAIDs for 1 week Continue ciprofloxacin to complete 5-day course Continue IV fluids Clear liquid diet for now Plan to resume Eliquis after 72 hours from procedure Symptomatic anemia Thrombocytopenia Secondary to above Monitor CBC and transfuse PRBCs as needed Hb 7.6 today (2) Elevated troponin: Plan: Chronic troponin elevation Likely secondary to demand ischemia due to anemia No known CAD --ECHO: No regional wall motion abnormalities on echo Patient denies chest pain, dyspnea Pt was largely non-compliant and avoided medical evaluations per records (3) Leukocytosis: Plan: likely due to malignancy/reactive Blood cultures negative to date Monitor (4) Anemia: Plan: acute on chronic: Anemia of chronic disease Worsened due to vaginal bleeding Monitor CBC Transfuse PRBCs as needed (5) SVT (supraventricular tachycardia): Plan: continue metoprolol (6) Paroxysmal atrial flutter: Plan: continue metoprolol Resume Apixaban--ok to resume per OBGYN Continue to hold as planned for endoscopic ultrasound and pancreatic mass biopsy tomorrow (7) Left-sided weakness: Plan: at baseline, per has continuously improved since stroke continue PT/OT (8) HLD (hyperlipidemia): Plan: continue statin therapy (9) Obesity, morbid, BMI 40.0-49.9: Plan: BMI 42 DVT Px: SCDs for now Admission and Anticipated Discharge Date Admission Date: February 03, 2023 Subjective Patient is seen and examined at bedside No recurrence of bleeding at this morning Had endoscopic ultrasound, ERCP today Reports having nausea postprocedure Discussed with GI today Denies any chest pain, dyspnea, dizziness, nausea, abdominal pain Review of Systems Review of Systems: All systems reviewed & are unremarkable except as noted in Subjective Physical Exam Physical Exam: Physical Exam: Vitals signs as noted above General Appearance:Morbidly Obese, no apparent distress Head: normocephalic, Atraumatic Eyes: normal inspection, EOMI Neck: supple, Trachea midline Respiratory/Chest: Normal breath sounds, CTA, No accessory muscle use Cardiovascular: S1, S2, No murmur Abdomen/GI:Soft, Non tender, Bowel sounds present Extremities/Musculoskeletal:normal inspection, no edema Neurologic/Psych:AAOX3, grossly no focal neurological deficits Skin: normal color, warm Results & Data Results & Data Vital Signs (Past 12 Hours) Vital Signs Temp Pulse Pulse Pulse Resp BP Pulse Ox 02/06/23 15:32 36.3 C L 82 18 132/60 97 02/06/23 14:55 36.6 C 81 18 104/52 L 95 02/06/23 14:40 36.7 C 81 18 138/80 94 02/06/23 14:05 91 H 16 135/82 92 02/06/23 13:55 36.6 C 96 H 20 158/71 H 94 02/06/23 13:45 88 18 150/70 H 97 02/06/23 13:35 94 H 19 149/66 H 99 02/06/23 13:28 36.0 C L 105 H 18 139/79 98 02/06/23 10:42 36.8 C 78 18 135/54 L 94 02/06/23 10:05 02/06/23 07:50 36.6 C 78 16 116/60 94 02/06/23 07:46 73 O2 Del Method O2 Flow Rate 02/06/23 15:32 Room Air 02/06/23 14:55 Room Air 02/06/23 14:40 Room Air 02/06/23 14:05 Room Air 02/06/23 13:55 Room Air 02/06/23 13:45 Oxymask 4 02/06/23 13:35 Oxymask 8 02/06/23 13:28 Oxymask 8 02/06/23 10:42 Room Air 02/06/23 10:05 Room Air 02/06/23 07:50 Room Air 02/06/23 07:46 Laboratory Results Short CBC 02/05/23 02/06/23 Range/Units 15:20 07:15 WBC 12.09 H (4.8-10.8) K/ul Hgb 8.1 L 7.6 L (12.0-16.0) g/dl Hct 25.2 L 22.6 L (37.0-47.0) % Plt Count 91 L (130-400) K/uL BMP 02/06/23 07:15 Sodium 138 Potassium 3.9 Chloride 106 Carbon Dioxide 26 BUN 9 Creatinine 0.81 Glucose 146 H Calcium 9.2
[2023-02-06] MEDS ORDERED: KETOROLAC TROMETHAMINE 15 MG/ML VIAL IV ONE (20:04)
[2023-02-06] MEDS: clonazePAM 0.5 MG TAB PO PRN (20:20)
[2023-02-06] MEDS: PANTOprazole 40 MG TAB PO SCH (20:23)
[2023-02-06 20:41] LABS: Hematocrit (blood only) 23.7 % (37.0-47.0); Hemoglobin 7.8 g/dl (12.0-16.0)
[2023-02-06] MEDS ORDERED: OPTIRAY 320 100ml IV ONE (20:45)
[2023-02-06 20:59] LABS: Albumin Level 3.5 gm/dl (3.4-5.0); Bilirubin,Total 0.4 mg/dl (0.2-1.0); Calcium 8.9 mg/dl (8.6-10.3); Potassium 4.5 mmol/L (3.5-5.1)
[2023-02-06 21:05] LABS: Albumin Globulin Ratio 1.3 (0.9-2); BUN Creatinine Ratio 10.2 (10-20); Est GFR (African American) 72.7 ml/min; Est GFR (Non-African American) 62.7 ml/min; Globulin 2.8 gm/dl (2.5-4.0); Total Protein 6.3 gm/dl (6.0-8.3)
--- NOTE | 2023-02-06 22:01 | CT Scan Report ---
Exam(s): CT ABDOMEN + PELVIS With Contrast IV Amt: 89ML OPTIRAY 320 EXAM: CT Abdomen and Pelvis With Intravenous Contrast CLINICAL HISTORY: Reason for exam: abd pain. TECHNIQUE: Axial computed tomography images of the abdomen and pelvis with intravenous contrast. CTDI is 28.14 mGy and DLP is 1457.61 mGy-cm. Automated exposure control was utilized for the study. A dose lowering technique was utilized adhering to the principles of ALARA. CONTRAST: Patient received 89ML OPTIRAY 320 of IV contrast COMPARISON: No relevant prior studies available. FINDINGS: Lung bases: Unremarkable. No mass. No consolidation. ABDOMEN: Liver: Unremarkable. No mass. Gallbladder and bile ducts: CBD stent seen in situ. Cholelithiasis. Pneumobilia. No intrahepatic ductal dilation. Pancreas: There is a pancreatic head mass lesion measuring 3.4 cm in diameter with associated peripancreatic stranding and pancreatic ductal dilatation. Spleen: Unremarkable. No splenomegaly. Adrenals: Unremarkable. No mass. Kidneys and ureters: Unremarkable. No solid mass. No hydronephrosis. Stomach and bowel: Unremarkable. No obstruction. No mucosal thickening. PELVIS: Appendix: No findings to suggest acute appendicitis. Bladder: Unremarkable. No mass. Reproductive: Unremarkable as visualized. ABDOMEN and PELVIS: Intraperitoneal space: Unremarkable. No free air. No significant fluid collection. Bones/joints: No acute fracture. No dislocation. Soft tissues: Unremarkable. Vasculature: Unremarkable. No abdominal aortic aneurysm. Lymph nodes: Subcentimeter peripancreatic lymph node seen in the small bowel mesentery. IMPRESSION: Pancreatic head mass lesion causing pancreatic ductal dilatation. Peripancreatic stranding could be due to your superimposed pancreatitis. Electronically signed by: Vipul Dockery MD 02/06/23 22:00 PM
--- NOTE | 2023-02-06 23:12 | Communication Note ---
Date of Service: February 06, 2023 Made aware by RN of worsening abdominal pain. Patient unable to give a lot of details as per RN. CT abdomen pelvis: Pancreatic head mass lesion causing pancreatic ductal dilatation. Peripancreatic stranding could be due to your superimposed pancreatitis. AP Pancreatitis Recent ERCP Bowel rest, IVF
[2023-02-06] MEDS ORDERED: oxyCODONE HCL IR 5 MG TAB (IMMEDIATE RELEASE) PO PRN (23:13)
[2023-02-07] MEDS: LACTATED RINGER'S 1,000 ML IV SCH ×3 (00:34→16:34)
[2023-02-07] MEDS: CIPROFLOXACIN / D5W 400 MG/200 ML BAG IV SCH ×2 (00:35→16:34)
[2023-02-07 05:32] LABS: Appearance Urine Clear (Clear); Bacteria Urine Automated Negative (Negative); Bilirubin Urine Negative (Negative); Blood Urine 2+ (Negative); Color Urine Yellow; Epithelial Cell Urine Auto >30 /lpf (0-5); Glucose Urine UA Negative (Negative); Ketones Urine Negative (Negative); Leukocyte Esterase Urine Negative (Negative); Nitrite Urine Negative (Negative); Protein Urine Trace (Negative); Specific Gravity Urine 1.034 (1.000-1.030); Urobilinogen Urine Negative (Negative); pH Urine 6.5 (4.5-7.5)
[2023-02-07 06:20] LABS: Hematocrit (blood only) 20.8 % (37.0-47.0); Hemoglobin 6.8 g/dl (12.0-16.0); Mean Corpuscular Hgb Conc 32.7 g/dL (32.0-36.0); Mean Corpuscular Volume 85.6 fL (80.0-100.0); Platelet Count 94 K/uL (130-400); RDW Coefficient of Variation 14.4 % (11.5-14.5); RDW Standard Deviation 44.1 fL (36.4-46.3); Red Blood Count 2.43 M/uL (4.20-5.40); White Blood Count 16.23 K/ul (4.8-10.8)
[2023-02-07] MEDS ORDERED: SODIUM CHLORIDE 0.9% 250 ML IV PRN ×2 (06:31→09:02)
[2023-02-07 06:43] LABS: Ferritin 306.3 ng/ml (8-388)
[2023-02-07 09:08] LABS: Albumin Level 3.4 gm/dl (3.4-5.0); Bilirubin,Total 0.4 mg/dl (0.2-1.0); Calcium 8.6 mg/dl (8.6-10.3); Potassium 4.2 mmol/L (3.5-5.1)
[2023-02-07 09:15] LABS: Albumin Globulin Ratio 1.3 (0.9-2); BUN Creatinine Ratio 10.5 (10-20); Creatinine Clr Calc Pharmacy 76.8 ml/min; Est GFR (African American) 75.5 ml/min; Est GFR (Non-African American) 65.1 ml/min; Globulin 2.6 gm/dl (2.5-4.0)
[2023-02-07] MEDS ORDERED: FUROSEMIDE INJ 20 MG/2 ML VIAL IV SCH (10:00)
[2023-02-07] MEDS: MEGESTROL ACETATE 40 MG TAB PO SCH ×2 (10:58→20:12)
[2023-02-07] MEDS: ATORVASTATIN 40 MG TAB PO SCH (10:58)
[2023-02-07] MEDS: METOPROLOL SUCC 25MG EXT REL TAB PO SCH (11:02)
--- NOTE | 2023-02-07 11:05 | Progress Note ---
Date of Service February 07, 2023 Assessment & Plan (1) Mass of pancreas: Plan: The patient was found to have a pancreatic mass with evidence of biliary obstruction. She underwent endoscopic ultrasound upper endoscopy and ultimately ERCP yesterday. The ERCP was somewhat difficult due to the known pancreatic mass. We were able to successfully place a biliary stent yesterday. The patient's lipase is presently normal and her liver enzymes are within normal limits. I would recommend advancing the patient's diet as tolerated. Fortunately her blood count is dropping again, I suspect this is related to her vaginal bleeding. Unfortunately the patient is quite complicated, she does have a recently diagnosed uterine cancer, I wonder if this is metastasized to her pancreas, hopefully the cytology that was obtained yesterday will help clarify this. Medically the patient will need services from [facility] in addition to surgical oncologist and medical oncologist for care of her complex oncologic issue. Recommendations Advance diet as tolerated Coagulation for at least 72 hours Hold nonsteroidals for 5 days Cytology results are pending Please call with any questions or concerns GI to sign off Admission and Anticipated Discharge Date Admission Date: February 03, 2023 Subjective The patient notes that her abdominal pain from last evening appears to have resolved completely. She did have some mild inflammatory stranding on a CT around the region of her pancreatic head but her lipase and liver enzymes are within normal limits this morning. The patient appears to have a pancreatic mass, cytology is pending but I wonder if this could be related to her known uterine cancer. Physical Exam Eyes: no icterus ENMT: external ear and nose normal, oropharynx normal Neck: trachea midline, no thyromegaly Respiratory: Auscultation: no crackles, no rales and no wheezes Cardiovascular: Rate/Rhythm: not tachycardic Gastrointestinal (Abdomen): nontender abdomen / obeses Results & Data Vital Signs (Past 12 Hours) Vital Signs Temp Pulse Pulse Resp BP BP Pulse Ox 02/07/23 10:20 36.6 C 70 18 132/69 99 02/07/23 08:40 36.7 C 74 18 127/76 97 02/07/23 08:38 36.8 C 75 20 112/66 95 02/07/23 08:18 36.9 C 74 20 92/61 L 93 02/07/23 08:11 36.8 C 76 20 108/65 92 02/07/23 07:41 73 02/07/23 04:00 64 02/07/23 02:54 36.8 C 64 16 90/47 L 94 O2 Del Method 02/07/23 10:20 02/07/23 08:40 02/07/23 08:38 02/07/23 08:18 02/07/23 08:11 Room Air 02/07/23 07:41 02/07/23 04:00 02/07/23 02:54 Room Air Laboratory Results Laboratory Results - last 24 hr 02/06/23 02/06/23 02/06/23 20:23 20:23 20:23 WBC RBC Hgb 7.8 L Hct 23.7 L MCV MCH MCHC RDW Std Deviation RDW Coeff of Kristin Plt Count MPV Sodium 135 L Potassium 4.5 Chloride 104 Carbon Dioxide 21 Anion Gap 10 BUN 10 Creatinine 0.98 Est Cr Clr Drug Dosing 75.0 Est GFR ( Amer) 72.7 Est GFR (Non-Af Amer) 62.7 BUN/Creatinine Ratio 10.2 Glucose 226 H Lactate 2.5 H* Calcium 8.9 Iron Transferrin Ferritin Total Bilirubin 0.4 AST 15 ALT 8 Alkaline Phosphatase 72 Total Protein 6.3 Albumin 3.5 Globulin 2.8 Albumin/Globulin Ratio 1.3 Lipase 18 Vitamin B12 Urine Color Urine Appearance Urine pH Ur Specific [place] Urine Protein Urine Glucose (UA) Urine Ketones Urine Blood Urine Nitrite Urine Bilirubin Urine Urobilinogen Ur Leukocyte Esterase Urine WBC (Auto) Urine RBC (Auto) U Hyaline Cast (Auto) U Epithel Cells (Auto) Urine Bacteria (Auto) Ur Renal Epithelial Cell Blood Type Antibody Screen Crossmatch 02/07/23 02/07/23 02/07/23 00:27 04:45 05:25 WBC RBC Hgb Hct MCV MCH MCHC RDW Std Deviation RDW Coeff of Kristin Plt Count MPV Sodium Potassium Chloride Carbon Dioxide Anion Gap BUN Creatinine Est Cr Clr Drug Dosing Est GFR ( Amer) Est GFR (Non-Af Amer) BUN/Creatinine Ratio Glucose Lactate 2.2 H* Calcium Iron 47 Transferrin 193 L Ferritin 306.3 Total Bilirubin AST ALT Alkaline Phosphatase Total Protein Albumin Globulin Albumin/Globulin Ratio Lipase Vitamin B12 Urine Color Yellow Urine Appearance Clear Urine pH 6.5 Ur Specific [place] 1.034 H Urine Protein Trace H Urine Glucose (UA) Negative Urine Ketones Negative Urine Blood 2+ H Urine Nitrite Negative Urine Bilirubin Negative Urine Urobilinogen Negative Ur Leukocyte Esterase Negative Urine WBC (Auto) 1-5 Urine RBC (Auto) 5-10 H U Hyaline Cast (Auto) 1-5 U Epithel Cells (Auto) >30 H Urine Bacteria (Auto) Negative Ur Renal Epithelial Cell Not Reportable Blood Type Antibody Screen Crossmatch 02/07/23 02/07/23 02/07/23 05:25 05:25 05:43 WBC 16.23 H RBC 2.43 L Hgb 6.8 L* Hct 20.8 L* MCV 85.6 MCH 28.0 MCHC 32.7 RDW Std Deviation 44.1 RDW Coeff of Kristin 14.4 Plt Count 94 L MPV 11.0 Sodium 137 Potassium 4.2 Chloride 105 Carbon Dioxide 25 Anion Gap 7 BUN 10 Creatinine 0.95 Est Cr Clr Drug Dosing 76.8 Est GFR ( Amer) 75.5 Est GFR (Non-Af Amer) 65.1 BUN/Creatinine Ratio 10.5 Glucose 151 H Lactate Calcium 8.6 Iron Transferrin Ferritin Total Bilirubin 0.4 AST 14 ALT 10 Alkaline Phosphatase 65 Total Protein 6.0 Albumin 3.4 Globulin 2.6 Albumin/Globulin Ratio 1.3 Lipase 23 Vitamin B12 289 Urine Color Urine Appearance Urine pH Ur Specific [place] Urine Protein Urine Glucose (UA) Urine Ketones Urine Blood Urine Nitrite Urine Bilirubin Urine Urobilinogen Ur Leukocyte Esterase Urine WBC (Auto) Urine RBC (Auto) U Hyaline Cast (Auto) U Epithel Cells (Auto) Urine Bacteria (Auto) Ur Renal Epithelial Cell Blood Type Antibody Screen Crossmatch 02/07/23 02/07/23 05:59 07:26 WBC RBC Hgb Hct MCV MCH MCHC RDW Std Deviation RDW Coeff of Kristin Plt Count MPV Sodium Potassium Chloride Carbon Dioxide Anion Gap BUN Creatinine Est Cr Clr Drug Dosing Est GFR ( Amer) Est GFR (Non-Af Amer) BUN/Creatinine Ratio Glucose Lactate 2.3 H* Calcium Iron Transferrin Ferritin Total Bilirubin AST ALT Alkaline Phosphatase Total Protein Albumin Globulin Albumin/Globulin Ratio Lipase Vitamin B12 Urine Color Urine Appearance Urine pH Ur Specific [place] Urine Protein Urine Glucose (UA) Urine Ketones Urine Blood Urine Nitrite Urine Bilirubin Urine Urobilinogen Ur Leukocyte Esterase Urine WBC (Auto) Urine RBC (Auto) U Hyaline Cast (Auto) U Epithel Cells (Auto) Urine Bacteria (Auto) Ur Renal Epithelial Cell Blood Type O Positive Antibody Screen NEGATIVE Crossmatch See Detail Diagnostic Findings xam(s): CT ABDOMEN + PELVIS With Contrast IV Amt: 89ML OPTIRAY 320 EXAM: CT Abdomen and Pelvis With Intravenous Contrast CLINICAL HISTORY: Reason for exam: abd pain. TECHNIQUE: Axial computed tomography images of the abdomen and pelvis with intravenous contrast. CTDI is 28.14 mGy and DLP is 1457.61 mGy-cm. Automated exposure control was utilized for the study. A dose lowering technique was utilized adhering to the principles of ALARA. CONTRAST: Patient received 89ML OPTIRAY 320 of IV contrast COMPARISON: No relevant prior studies available. FINDINGS: Lung bases: Unremarkable. No mass. No consolidation. ABDOMEN: Liver: Unremarkable. No mass. Gallbladder and bile ducts: CBD stent seen in situ. Cholelithiasis. Pneumobilia. No intrahepatic ductal dilation. Pancreas: There is a pancreatic head mass lesion measuring 3.4 cm in diameter with associated peripancreatic stranding and pancreatic ductal dilatation. Spleen: Unremarkable. No splenomegaly. Adrenals: Unremarkable. No mass. Kidneys and ureters: Unremarkable. No solid mass. No hydronephrosis. Stomach and bowel: Unremarkable. No obstruction. No mucosal thickening. PELVIS: Appendix: No findings to suggest acute appendicitis. Bladder: Unremarkable. No mass. Reproductive: Unremarkable as visualized. ABDOMEN and PELVIS: Intraperitoneal space: Unremarkable. No free air. No significant fluid collection. Bones/joints: No acute fracture. No dislocation. Soft tissues: Unremarkable. Vasculature: Unremarkable. No abdominal aortic aneurysm. Lymph nodes: Subcentimeter peripancreatic lymph node seen in the small bowel mesentery. IMPRESSION: Pancreatic head mass lesion causing pancreatic ductal dilatation. Peripancreatic stranding could be due to your superimposed pancreatitis. Electronically signed by: Vipul Dockery MD 02/06/23 22:00 PM
[2023-02-07] MEDS: ONDANSETRON INJ 2 MG/ML 2 ML VIAL IV PRN (16:41)
--- NOTE | 2023-02-07 17:22 | Hospitalist Progress Note ---
Date of Service February 07, 2023 Assessment & Plan (1) Vaginal bleeding: Plan: Postprocedural vaginal hemorrhage due to biopsy in the setting of Eliquis Endometrial carcinoma ? Metastatic Pancreatic mass Bile duct obstruction secondary to above --Abdominal MRI on 01/04/2023:Pancreatic head mass is known to enhance with some central hypoenhancement compatible with malignancy with central necrosis. No vascular involvement is seen. There is a subcentimeter adjacent lymph node. Additional findings are as above. Hepatic steatosis. -- Reviewed outpatient pathology report consistent with endometrial endometrioid carcinoma, FIGO 1 in background of EIN and polyp -- Needs surgical staging with gynecology oncologist at [facility] [place] --S/P upper endoscopic ultrasound, biliary sphincterotomy and metal stent placement for bile duct obstruction secondary to mass on 02/06/[address] Ring Appreciate [employer]ENT, GI input Aspirin discontinued Eliquis on hold Needs follow-up with [employer] and GI as outpatient Continue Megace Avoid NSAIDs for 1 week Continue ciprofloxacin to complete 5-day course Plan to resume Eliquis after 72 hours if Hb stable Needs follow-up with oncology upon discharge Symptomatic anemia Thrombocytopenia Secondary to above Monitor CBC and transfuse PRBCs as needed Hb 6.8 today Transfuse 2 units PRBCs today Abdominal pain Suspected post ERCP pancreatitis -CT ABD:Pancreatic head mass lesion causing pancreatic ductal dilatation.Peripancreatic stranding could be due to your superimposed pancreatitis. Continue IV fluids Advance diet as tolerated Abdominal pain much improved (2) Elevated troponin: Plan: Chronic troponin elevation Likely secondary to demand ischemia due to anemia No known CAD --ECHO: No regional wall motion abnormalities on echo Patient denies chest pain, dyspnea Pt was largely non-compliant and avoided medical evaluations per records (3) Leukocytosis: Plan: likely due to malignancy/reactive Blood cultures negative to date Monitor (4) Anemia: Plan: acute on chronic: Anemia of chronic disease Worsened due to vaginal bleeding Monitor CBC Transfuse PRBCs as needed (5) SVT (supraventricular tachycardia): Plan: continue metoprolol (6) Paroxysmal atrial flutter: Plan: continue metoprolol Resume Apixaban--ok to resume per OBGYN Continue to hold Eliquis as recommended by GI (7) Left-sided weakness: Plan: at baseline, per has continuously improved since stroke continue PT/OT (8) HLD (hyperlipidemia): Plan: continue statin therapy (9) Obesity, morbid, BMI 40.0-49.9: Plan: BMI 42 DVT Px: SCDs Re:Anemia Admission and Anticipated Discharge Date Admission Date: February 03, 2023 Subjective Patient is seen and examined at bedside Patient had significant abdominal pain overnight which improved this morning Denies any obvious bleeding issues Discussed with patient's family at bedside Also denies any chest pain, dyspnea, dizziness, nausea, abdominal pain Review of Systems Review of Systems: All systems reviewed & are unremarkable except as noted in Subjective Physical Exam Physical Exam: Physical Exam: Vitals signs as noted above General Appearance:Morbidly Obese, no apparent distress Head: normocephalic, Atraumatic Eyes: normal inspection, EOMI Neck: supple, Trachea midline Respiratory/Chest: Normal breath sounds, CTA, No accessory muscle use Cardiovascular: S1, S2, No murmur Abdomen/GI:Soft, Non tender, Bowel sounds present Extremities/Musculoskeletal:normal inspection, no edema Neurologic/Psych:AAOX3, grossly no focal neurological deficits Skin: normal color, warm Results & Data Results & Data Vital Signs (Past 12 Hours) Vital Signs Temp Pulse Pulse Resp BP BP Pulse Ox 02/07/23 16:29 74 02/07/23 15:16 02/07/23 16:05 36.9 C 76 20 136/72 97 02/07/23 15:15 37.0 C 76 20 135/72 92 02/07/23 14:45 36.9 C 76 20 136/79 97 02/07/23 14:15 36.8 C 75 20 136/71 98 02/07/23 13:45 36.8 C 75 20 136/71 98 02/07/23 13:45 37.0 C 82 20 136/74 97 02/07/23 13:29 37 C 80 20 101/69 98 02/07/23 13:09 36.8 C 82 20 174/86 H 95 02/07/23 12:16 36.4 C L 81 20 116/68 99 02/07/23 09:25 36.9 C 72 20 111/53 L 96 02/07/23 10:20 36.6 C 70 18 132/69 99 02/07/23 08:40 36.7 C 74 18 127/76 97 02/07/23 08:38 36.8 C 75 20 112/66 95 02/07/23 08:18 36.9 C 74 20 92/61 L 93 02/07/23 08:11 36.8 C 76 20 108/65 92 02/07/23 07:41 73 O2 Del Method 02/07/23 16:29 02/07/23 15:16 Room Air 02/07/23 16:05 02/07/23 15:15 02/07/23 14:45 02/07/23 14:15 02/07/23 13:45 02/07/23 13:45 02/07/23 13:29 02/07/23 13:09 02/07/23 12:16 02/07/23 09:25 02/07/23 10:20 02/07/23 08:40 02/07/23 08:38 02/07/23 08:18 02/07/23 08:11 Room Air 02/07/23 07:41 Laboratory Results Short CBC 02/06/23 02/07/23 Range/Units 20:23 05:25 WBC 16.23 H (4.8-10.8) K/ul Hgb 7.8 L 6.8 L* (12.0-16.0) g/dl Hct 23.7 L 20.8 L* (37.0-47.0) % Plt Count 94 L (130-400) K/uL BMP 02/06/23 02/07/23 20:23 05:43 Sodium 135 L 137 Potassium 4.5 4.2 Chloride 104 105 Carbon Dioxide 21 25 BUN 10 10 Creatinine 0.98 0.95 Glucose 226 H 151 H Calcium 8.9 8.6 Liver Function 02/06/23 02/07/23 Range/Units 20:23 05:43 Total Bilirubin 0.4 0.4 (0.2-1.0) mg/dl AST 15 14 (13-39) U/L ALT 8 10 (7-52) U/L Alkaline Phosphatase 72 65 (34-104) U/L Albumin 3.5 3.4 (3.4-5.0) gm/dl Urine 02/07/23 Range/Units 04:45 Urine Color Yellow Urine Appearance Clear (Clear) Urine pH 6.5 (4.5-7.5) Ur Specific [place] 1.034 H (1.000-1.030) Urine Protein Trace H (Negative) Urine Glucose (UA) Negative (Negative)
[2023-02-07] MEDS: PANTOprazole 40 MG TAB PO SCH (20:13)
[2023-02-08] MEDS: LACTATED RINGER'S 1,000 ML IV SCH ×3 (01:36→09:08)
[2023-02-08] MEDS: CIPROFLOXACIN / D5W 400 MG/200 ML BAG IV SCH ×2 (01:37→14:38)
[2023-02-08 06:30] LABS: Hematocrit (blood only) 26.7 % (37.0-47.0); Hemoglobin 8.9 g/dl (12.0-16.0); Mean Corpuscular Hemoglobin 28.1 pg (25.0-34.0); Mean Corpuscular Hgb Conc 33.3 g/dL (32.0-36.0); Mean Corpuscular Volume 84.2 fL (80.0-100.0); Mean Platelet Volume 10.8 fL (9.4-12.4); Platelet Count 85 K/uL (130-400); RDW Coefficient of Variation 15.9 % (11.5-14.5); RDW Standard Deviation 46.7 fL (36.4-46.3); Red Blood Count 3.17 M/uL (4.20-5.40); White Blood Count 13.65 K/ul (4.8-10.8)
[2023-02-08 06:47] LABS: Albumin Level 3.4 gm/dl (3.4-5.0); BUN Creatinine Ratio 10.2 (10-20); Bilirubin Direct 0.1 mg/dl (0-0.2); Bilirubin,Total 0.6 mg/dl (0.2-1.0); Calcium 8.6 mg/dl (8.6-10.3); Creatinine Clr Calc Pharmacy 82.9 ml/min; Est GFR (African American) 82.8 ml/min; Est GFR (Non-African American) 71.4 ml/min; Potassium 3.8 mmol/L (3.5-5.1); Total Protein 5.9 gm/dl (6.0-8.3)
[2023-02-08] MEDS: MEGESTROL ACETATE 40 MG TAB PO SCH ×2 (07:37→21:03)
[2023-02-08] MEDS: METOPROLOL SUCC 25MG EXT REL TAB PO SCH (07:40)
[2023-02-08] MEDS: ATORVASTATIN 40 MG TAB PO SCH (07:40)
[2023-02-08] MEDS: clonazePAM 0.5 MG TAB PO PRN (07:43)
--- NOTE | 2023-02-08 13:05 | Hospitalist Progress Note ---
Date of Service February 08, 2023 Assessment & Plan (1) Vaginal bleeding: Plan: Postprocedural vaginal hemorrhage due to biopsy in the setting of Eliquis Endometrial carcinoma ? Metastatic Pancreatic mass Bile duct obstruction secondary to above --Abdominal MRI on 01/04/2023:Pancreatic head mass is known to enhance with some central hypoenhancement compatible with malignancy with central necrosis. No vascular involvement is seen. There is a subcentimeter adjacent lymph node. Additional findings are as above. Hepatic steatosis. -- Reviewed outpatient pathology report consistent with endometrial endometrioid carcinoma, FIGO 1 in background of EIN and polyp -- Needs surgical staging with gynecology oncologist at [facility] [place] --S/P upper endoscopic ultrasound, biliary sphincterotomy and metal stent placement for bile duct obstruction secondary to mass on 02/06/[address] Ring Appreciate WHEEL BLOCKER, GI input Aspirin discontinued Eliquis on hold Needs follow-up with WHEEL BLOCKER and GI as outpatient Continue Megace Avoid NSAIDs for 1 week Continue ciprofloxacin to complete 5-day course Plan to resume Eliquis after 72 hours if Hb stable Needs follow-up with oncology upon discharge Pathology from pancreatic biopsy pending Symptomatic anemia Thrombocytopenia Secondary to above S/P 3 units PRBCs Monitor CBC and transfuse PRBCs as needed Hb 8.9 today Abdominal pain Suspected post ERCP pancreatitis -CT ABD:Pancreatic head mass lesion causing pancreatic ductal dilatation.Peripancreatic stranding could be due to your superimposed pancreatitis. Discontinue IV fluids Advance to low-fat diet Abdominal pain resolved (2) Elevated troponin: Plan: Chronic troponin elevation Likely secondary to demand ischemia due to anemia No known CAD --ECHO: No regional wall motion abnormalities on echo Patient denies chest pain, dyspnea Pt was largely non-compliant and avoided medical evaluations per records (3) Leukocytosis: Plan: likely due to malignancy/reactive Blood cultures negative to date Monitor (4) Anemia: Plan: acute on chronic: Anemia of chronic disease Worsened due to vaginal bleeding Monitor CBC Transfuse PRBCs as needed (5) SVT (supraventricular tachycardia): Plan: continue metoprolol (6) Paroxysmal atrial flutter: Plan: continue metoprolol Resume Apixaban--ok to resume per OBGYN Continue to hold Eliquis as recommended by GI (7) Left-sided weakness: Plan: at baseline, per has continuously improved since stroke continue PT/OT (8) HLD (hyperlipidemia): Plan: continue statin therapy (9) Obesity, morbid, BMI 40.0-49.9: Plan: BMI 42 DVT Px: SCDs Re:Anemia Admission and Anticipated Discharge Date Admission Date: February 03, 2023 Subjective Patient is seen and examined at bedside Emotional during my encounter Offers no new complaints Abdominal pain resolved Tolerating diet Denies any bleeding issues Also denies any chest pain, dyspnea, dizziness Plan to discharge home today Review of Systems Review of Systems: All systems reviewed & are unremarkable except as noted in Subjective Physical Exam Physical Exam: Physical Exam: Vitals signs as noted above General Appearance:Morbidly Obese, no apparent distress Head: normocephalic, Atraumatic Eyes: normal inspection, EOMI Neck: supple, Trachea midline Respiratory/Chest: Normal breath sounds, CTA, No accessory muscle use Cardiovascular: S1, S2, No murmur Abdomen/GI:Soft, Non tender, Bowel sounds present Extremities/Musculoskeletal:normal inspection, no edema Neurologic/Psych:AAOX3, grossly no focal neurological deficits Skin: normal color, warm Results & Data Results & Data Vital Signs (Past 12 Hours) Vital Signs Temp Pulse Pulse Resp BP BP Pulse Ox 02/08/23 11:54 36.8 C 76 22 146/114 H 98 02/08/23 07:52 36.7 C 98 H 22 147/61 H 96 02/08/23 07:23 90 02/08/23 02:45 36.9 C 74 16 139/73 96 O2 Del Method 02/08/23 11:54 Room Air 02/08/23 07:52 Room Air 02/08/23 07:23 02/08/23 02:45 Room Air Laboratory Results Short CBC 02/08/23 Range/Units 06:07 WBC 13.65 H (4.8-10.8) K/ul Hgb 8.9 L (12.0-16.0) g/dl Hct 26.7 L (37.0-47.0) % Plt Count 85 L (130-400) K/uL BMP 02/08/23 06:07 Sodium 140 Potassium 3.8 Chloride 107 Carbon Dioxide 26 BUN 9 Creatinine 0.88 Glucose 139 H Calcium 8.6 Liver Function 02/08/23 Range/Units 06:07 Total Bilirubin 0.6 (0.2-1.0) mg/dl Direct Bilirubin 0.1 (0-0.2) mg/dl AST 14 (13-39) U/L ALT 10 (7-52) U/L Alkaline Phosphatase 71 (34-104) U/L Albumin 3.4 (3.4-5.0) gm/dl
[2023-02-08] MEDS: PANTOprazole 40 MG TAB PO SCH (20:05)
[2023-02-09] MEDS: CIPROFLOXACIN / D5W 400 MG/200 ML BAG IV SCH (01:05)
[2023-02-09 08:11] LABS: Hemoglobin 8.5 g/dl (12.0-16.0); Mean Corpuscular Hgb Conc 32.7 g/dL (32.0-36.0); Mean Corpuscular Volume 85.5 fL (80.0-100.0); Platelet Count 64 K/uL (130-400); RDW Coefficient of Variation 16.1 % (11.5-14.5); RDW Standard Deviation 48.6 fL (36.4-46.3); Red Blood Count 3.04 M/uL (4.20-5.40)
[2023-02-09] MEDS: MEGESTROL ACETATE 40 MG TAB PO SCH (08:41)
[2023-02-09] MEDS: METOPROLOL SUCC 25MG EXT REL TAB PO SCH (08:41)
[2023-02-09] MEDS: ATORVASTATIN 40 MG TAB PO SCH (08:41)
[2023-02-09] MEDS ORDERED: POTASSIUM CHLORIDE CRTAB 20 MEQ TABCR PO ONE (09:32)
--- NOTE | 2023-02-09 12:45 | Electrocardiogram Report ---
Test Reason : Blood Pressure : / mmHG Vent. Rate : 086 BPM Atrial Rate : 086 BPM P-R Int : 150 ms QRS Dur : 080 ms QT Int : 336 ms P-R-T Axes : 056 014 016 degrees QTc Int : 402 ms Normal sinus rhythm Nonspecific T wave abnormality Abnormal ECG When compared with ECG of 03-FEB-2023 15:23, Nonspecific T wave abnormality, worse in Lateral leads Confirmed by Orlin Wolf ([id number]) on 02/09/2023 12:44:55 PM Referred By: REFERRED SELF Confirmed By:Orlin Wolf
--- NOTE | 2023-02-09 12:46 | Hospitalist Progress Note ---
Date of Service February 09, 2023 Assessment & Plan (1) Vaginal bleeding: Plan: Postprocedural vaginal hemorrhage due to biopsy in the setting of Eliquis Endometrial carcinoma ? Metastatic Pancreatic mass Bile duct obstruction secondary to above --Abdominal MRI on 01/04/2023:Pancreatic head mass is known to enhance with some central hypoenhancement compatible with malignancy with central necrosis. No vascular involvement is seen. There is a subcentimeter adjacent lymph node. Additional findings are as above. Hepatic steatosis. -- Reviewed outpatient pathology report consistent with endometrial endometrioid carcinoma, FIGO 1 in background of EIN and polyp -- Needs surgical staging with gynecology oncologist at [facility] [place] --S/P upper endoscopic ultrasound, biliary sphincterotomy and metal stent placement for bile duct obstruction secondary to mass on 02/06/[address] Ring Appreciate [employer], GI input Aspirin discontinued Eliquis on hold Needs follow-up with [employer] and GI as outpatient Continue Megace Avoid NSAIDs for 1 week Continue ciprofloxacin to complete 5-day course Plan to resume Eliquis after 72 hours if Hb stable Needs follow-up with oncology upon discharge Pathology from pancreatic biopsy pending Plan to discharge home today Symptomatic anemia Thrombocytopenia Secondary to above S/P 3 units PRBCs Monitor CBC and transfuse PRBCs as needed Hb 8.5 today Abdominal pain Suspected post ERCP pancreatitis -CT ABD:Pancreatic head mass lesion causing pancreatic ductal dilatation.Peripancreatic stranding could be due to your superimposed pancreatitis. Discontinue IV fluids Advance to low-fat diet Abdominal pain resolved SVT: H/O P.Atrial flutter Increase metoprolol succinate to 25 mg BID Monitor and replete Eliquis as needed Appreciate cardiology input (2) Elevated troponin: Plan: Chronic troponin elevation Likely secondary to demand ischemia due to anemia No known CAD --ECHO: No regional wall motion abnormalities on echo Patient denies chest pain, dyspnea Pt was largely non-compliant and avoided medical evaluations per records (3) Leukocytosis: Plan: likely due to malignancy/reactive Blood cultures negative Monitor (4) Anemia: Plan: acute on chronic: Anemia of chronic disease Worsened due to vaginal bleeding Monitor CBC Transfuse PRBCs as needed (5) Paroxysmal atrial flutter: Plan: continue metoprolol Resume Apixaban--ok to resume per OBGYN Continue to hold Eliquis as recommended by GI (6) Left-sided weakness: Plan: at baseline, per has continuously improved since stroke continue PT/OT (7) HLD (hyperlipidemia): Plan: continue statin therapy (8) Obesity, morbid, BMI 40.0-49.9: Plan: BMI 42 DVT Px: SCDs Re:Anemia Admission and Anticipated Discharge Date Admission Date: February 03, 2023 Subjective Patient is seen and examined at bedside States feeling well today Had transient SVT overnight Denies any bleeding issues Offers no new complaints Discussed with patient's family at bedside Denies any chest pain, dyspnea, dizziness, nausea, vomiting, abdominal pain Plan to be discharged home today Discussed with billet worker on-call today Review of Systems Review of Systems: All systems reviewed & are unremarkable except as noted in Subjective Physical Exam Physical Exam: Physical Exam: Vitals signs as noted above General Appearance:Morbidly Obese, no apparent distress Head: normocephalic, Atraumatic Eyes: normal inspection, EOMI Neck: supple, Trachea midline Respiratory/Chest: Normal breath sounds, CTA, No accessory muscle use Cardiovascular: S1, S2, No murmur Abdomen/GI:Soft, Non tender, Bowel sounds present Extremities/Musculoskeletal:normal inspection, no edema Neurologic/Psych:AAOX3, grossly no focal neurological deficits Skin: normal color, warm Results & Data Results & Data Vital Signs (Past 12 Hours) Vital Signs Temp Pulse Pulse Resp BP BP Pulse Ox 02/09/23 11:32 36.9 C 83 20 136/74 97 02/09/23 07:00 76 02/09/23 08:00 36.8 C 75 20 145/56 H 94 02/09/23 04:06 36.8 C 72 18 172/74 H 98 O2 Del Method 02/09/23 11:32 Room Air 02/09/23 07:00 02/09/23 08:00 Room Air 02/09/23 04:06 Room Air Laboratory Results Short CBC 02/09/23 Range/Units 07:45 WBC 12.40 H (4.8-10.8) K/ul Hgb 8.5 L (12.0-16.0) g/dl Hct 26.0 L (37.0-47.0) % Plt Count 64 L (130-400) K/uL
--- NOTE | 2023-02-09 12:56 | Discharge Summary ---
Date of Service February 09, 2023 Admission HPI Per Admitting Provider Ms. Spivey is a 62 year old female with pmhx of morbid obesity, SVT, paroxysmal Aflutter, + elevated troponin, HLP, pancreatic mass, and anxiety. 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 She presents now with vaginal bleeding after an endometrial bx while on Eliquis. Hx is per pt and at bedside. Ms. Spivey presented 01/02/23 with left sided weakness and was found to have acute CVA. At that time she had mentioned about a year or so of mild postmenopausal bleeding that she had neglected to follow up on. Transvaginal US was obtained and abnormal. This was followed up w ith an endometrial bx 01/30/23. At that point she was supposed to be taking Eliquis but there was a delay in filling the prescription. On 01/31 she felt well and did not have any problems. That night she took Eliquis for the first time and at some point later that night vaginal bleeding became severe and continued into Thursday. She has not taken Eliquis or ASA since. Bleeding seemed to be slowing but last night was severe again. Around 2-3 this morning she was trying to move her bowels and threw up at the same time. Per her mother the BM was solid but bloody. The patient endorses fatigue, generalized weakness, and malaise. Left sided weakness continues to improve. She denies HERMOSILLO, dizziness, lightheadedness, CP, palpitations, sob, hematemesis, and abdominal pain. She further denies f/c, cough, congestion, and rhinorrhea. She has no other complaints. ER course: VS notable for HR 90s-1-teens, BP 91/54 b/w notable for wbc 15.32, hgb 10.3, hct 32.1, glucose 221. Remaining cbc and cmp are unimpressive. Trop I 436 (previously in the 200s). CXR neg for acute pathology COVID negative. Case was discussed with OBGyn by ED MD. They do not plan any intervention until pathology report is back. Pt given NS and admitted to hospitalist service Admission Exam Per Admitting Provider General:Morbid obese,anxious, non-toxic appearing Head:NC AT Eyes: anicteric sclera, no conjunctival injection Nose:normal, nares patent Mouth:MMM Neck:supple, trachea midline CV:RRR S1 S2 Pulm:CTA b/l Abd/GI:+ BS, soft, NT, ND, no guarding :exam deferred. No collins. Ext:no pretibial edema MSK:normal bulk and tone Neuro:left sided weakness at baseline, no other focal deficits Psych:extremely anxious Skin:visible skin is warm, dry, and without rash. Pt not fully undressed for exam. Principal Diagnosis Endometrial carcinoma Pancreatic mass Symptomatic anemia Thrombocytopenia Supraventricular tachycardia Discharge Data Allergies Allergy/AdvReac Type Severity Reaction Status Date / Time No Known Allergies Allergy Verified 02/06/23 10:40 Consultations 02/03/23 16:22 ED Decision to Admit Stat 02/04/23 08:52 Consult Gynecology Routine 02/05/23 09:23 Consult Cardiology Routine 02/05/23 09:26 Consult Anesthesiology Routine Procedures Performed Operation Date: 02/06/23 11:05 Actual Procedures s Esophagogastroduodenoscopy(Not Applicable) - Odilia Ring, p Endoscopic Ultrasonography Upper with Fine needle aspiration(Not Applicable) - Odilia Ring DO s Endoscopic Retrograde Cholangiopancreato(Not Applicable) - Odilia Ring, Ordered Studies 02/06/23 11:34 US upper EUS PACS images Routine 02/06/23 20:04 CT Abd and Pelvis [CT abd pelvis IV con only] Stat Laboratory Results WBC 12.40 K/ul (4.8-10.8) H 02/09/23 07:45 RBC 3.04 M/uL (4.20-5.40) L 02/09/23 07:45 Hgb 8.5 g/dl (12.0-16.0) L 02/09/23 07:45 Hct 26.0 % (37.0-47.0) L 02/09/23 07:45 MCV 85.5 fL (80.0-100.0) 02/09/23 07:45 MCH 28.0 pg (25.0-34.0) 02/09/23 07:45 MCHC 32.7 g/dL (32.0-36.0) 02/09/23 07:45 RDW Std Deviation 48.6 fL (36.4-46.3) H 02/09/23 07:45 RDW Coeff of Kristin 16.1 % (11.5-14.5) H 02/09/23 07:45 Plt Count 64 K/uL (130-400) L 02/09/23 07:45 MPV 11.0 fL (9.4-12.4) 02/09/23 07:45 Immature Gran % (Auto) 0.5 % 02/03/23 14:27 Neut % (Auto) 81.3 % 02/03/23 14:27 Lymph % (Auto) 10.0 % 02/03/23 14:27 Routt % (Auto) 6.5 % 02/03/23 14:27 Eos % (Auto) 1.1 % 02/03/23 14:27 Baso % (Auto) 0.6 % 02/03/23 14:27 Neut # (Auto) 12.47 K/uL (1.40-6.50) H 02/03/23 14:27 Lymph # (Auto) 1.53 K/uL (1.2-3.4) 02/03/23 14:27 Routt # (Auto) 0.99 K/uL (0.11-0.59) H 02/03/23 14:27 Eos # (Auto) 0.17 K/uL (0-0.50) 02/03/23 14:27 Baso # (Auto) 0.09 K/uL (0-0.2) 02/03/23 14:27 Immature Gran # (Auto) 0.07 K/uL (0.01-0.20) 02/03/23 14:27 Platelet Estimate Decreased (Normal) L 02/06/23 07:15 PT 12.9 Seconds (9.0-12.0) H 02/03/23 14:27 INR 1.2 (0.9-1.1) H 02/03/23 14:27 APTT 27.8 Seconds (21.0-31.0) 02/03/23 14: PTT Ratio 1.0 02/03/23 14:27 Sodium 140 mmol/L (136-145) 02/08/23 06:07 Potassium 3.8 mmol/L (3.5-5.1) 02/08/23 06:07 Chloride 107 mmol/L (98-107) 02/08/23 06:07 Carbon Dioxide 26 mmol/L (21-32) 02/08/23 06:07 Anion Gap 7 (3-11) 02/08/23 06:07 BUN 9 mg/dl (6-23) 02/08/23 06:07 Creatinine 0.88 mg/dl (0.6-1.2) 02/08/23 06:07 Est Cr Clr Drug Dosing 82.9 ml/min 02/08/23 06:07 Est GFR ( Amer) 82.8 ml/min 02/08/23 06:07 Est GFR (Non-Af Amer) 71.4 ml/min 02/08/23 06:07 BUN/Creatinine Ratio 10.2 (10-20) 02/08/23 06:07 Glucose 139 mg/dl (70-99(Fasting)) H 02/08/23 06:07 Lactate 2.7 mmol/L (0.4-2.0) H* 02/07/23 20:54 Calcium 8.6 mg/dl (8.6-10.3) 02/08/23 06:07 Magnesium 1.8 mg/dl (1.7-2.4) 02/09/23 09:45 Iron 47 mcg/dl (35-150) 02/07/23 05:25 Transferrin 193 mg/dl (200-360) L 02/07/23 05:25 Ferritin 306.3 ng/ml (8-388) 02/07/23 05:25 Total Bilirubin 0.6 mg/dl (0.2-1.0) 02/08/23 06:07 Direct Bilirubin 0.1 mg/dl (0-0.2) 02/08/23 06:07 AST 14 U/L (13-39) 02/08/23 06:07 ALT 10 U/L (7-52) 02/08/23 06:07 Alkaline Phosphatase 71 U/L (34-104) 02/08/23 06:07 Troponin I High Sens 513.9 pg/ml (0-14) H* 02/04/23 12:04 Total Protein 5.9 gm/dl (6.0-8.3) L 02/08/23 06:07 Albumin 3.4 gm/dl (3.4-5.0) 02/08/23 06:07 Globulin 2.6 gm/dl (2.5-4.0) 02/07/23 05:43 Albumin/Globulin Ratio 1.3 (0.9-2) 02/07/23 05:43 Lipase 23 U/L (11-82) 02/07/23 05:43 Vitamin B12 289 pg/ml (180-914) 02/07/23 05:25 Procalcitonin 0.05 ng/ml (0-0.5) 02/03/23 16:08 Urine Color Yellow 02/07/23 04:45 Urine Appearance Clear (Clear) 02/07/23 04:45 Urine pH 6.5 (4.5-7.5) 02/07/23 04:45 Ur Specific Chana 1.034 (1.000-1.030) H 02/07/23 04:45 Urine Protein Trace (Negative) H 02/07/23 04:45 Urine Glucose (UA) Negative (Negative) 02/07/23 04:45 Urine Ketones Negative (Negative) 02/07/23 04:45 Urine Blood 2+ (Negative) H 02/07/23 04:45 Urine Nitrite Negative (Negative) 02/07/23 04:45 Urine Bilirubin Negative (Negative) 02/07/23 04:45 Urine Urobilinogen Negative (Negative) 02/07/23 04:45 Ur Leukocyte Esterase Negative (Negative) 02/07/23 04:45 Urine WBC (Auto) 1-5 /hpf (0-5) 02/07/23 04:45 Urine RBC (Auto) 5-10 /hpf (0-4) H 02/07/23 04:45 U Hyaline Cast (Auto) 1-5 /lpf (0-5) 02/07/23 04:45 U Epithel Cells (Auto) >30 /lpf (0-5) H 02/07/23 04:45 Urine Bacteria (Auto) Negative (Negative) 02/07/23 04:45 Ur Renal Epithelial Cell Not Reportable 02/07/23 04:45 SARS-CoV-2, RNA, NAAT NEGATIVE (NEGATIVE) 02/03/23 15:00 Blood Type O Positive 02/07/23 05:59 Blood Type Recheck O Positive 02/04/23 06:31 Antibody Screen NEGATIVE 02/07/23 05:59 Crossmatch See Detail 02/07/23 05:59 Impressions Chest X-Ray 02/03/23 15:18 XR chest 1V portable CLINICAL HISTORY: leukocytosis, eval for PNA TECHNIQUE: Single frontal radiograph of the chest was obtained. Comparison: Comparison is made to chest radiograph 01/02/2023 FINDINGS: No lines and tubes are seen. The cardiomediastinal silhouette is normal. Lungs are underinflated but clear. No evidence of pleural effusion or pneumothorax. IMPRESSION: No acute abnormalities and in particular no radiographic evidence of pneumonia. ACT 112: Negative or not required by law. Electronically signed by: Janak Joy M.D. 02/03/2023 3:43 PM Abdomen/Pelvis CT 02/06/23 20:04 Exam(s): CT ABDOMEN + PELVIS With Contrast IV Amt: 89ML OPTIRAY 320 EXAM: CT Abdomen and Pelvis With Intravenous Contrast CLINICAL HISTORY: Reason for exam: abd pain. TECHNIQUE: Axial computed tomography images of the abdomen and pelvis with intravenous contrast. CTDI is 28.14 mGy and DLP is 1457.61 mGy-cm. Automated exposure control was utilized for the study. A dose lowering technique was utilized adhering to the principles of ALARA. CONTRAST: Patient received 89ML OPTIRAY 320 of IV contrast COMPARISON: No relevant prior studies available. FINDINGS: Lung bases: Unremarkable. No mass. No consolidation. ABDOMEN: Liver: Unremarkable. No mass. Gallbladder and bile ducts: CBD stent seen in situ. Cholelithiasis. Pneumobilia. No intrahepatic ductal dilation. Pancreas: There is a pancreatic head mass lesion measuring 3.4 cm in diameter with associated peripancreatic stranding and pancreatic ductal dilatation. Spleen: Unremarkable. No splenomegaly. Adrenals: Unremarkable. No mass. Kidneys and ureters: Unremarkable. No solid mass. No hydronephrosis. Stomach and bowel: Unremarkable. No obstruction. No mucosal thickening. PELVIS: Appendix: No findings to suggest acute appendicitis. Bladder: Unremarkable. No mass. Reproductive: Unremarkable as visualized. ABDOMEN and PELVIS: Intraperitoneal space: Unremarkable. No free air. No significant fluid collection. Bones/joints: No acute fracture. No dislocation. Soft tissues: Unremarkable. Vasculature: Unremarkable. No abdominal aortic aneurysm. Lymph nodes: Subcentimeter peripancreatic lymph node seen in the small bowel mesentery. IMPRESSION: Pancreatic head mass lesion causing pancreatic ductal dilatation. Peripancreatic stranding could be due to your superimposed pancreatitis. Electronically signed by: Vipul Dockery MD 02/06/23 22:00 PM Hospital Course (1) Vaginal bleeding: Postprocedural vaginal hemorrhage due to biopsy in the setting of Eliquis Endometrial carcinoma ? Metastatic Pancreatic mass Bile duct obstruction secondary to above --Abdominal MRI on 01/04/2023:Pancreatic head mass is known to enhance with some central hypoenhancement compatible with malignancy with central necrosis. No vascular involvement is seen. There is a subcentimeter adjacent lymph node. Additional findings are as above. Hepatic steatosis. -- Reviewed outpatient pathology report consistent with endometrial endometrioid carcinoma, FIGO 1 in background of EIN and polyp -- Needs surgical staging with gynecology oncologist at [facility] --S/P upper endoscopic ultrasound, biliary sphincterotomy and metal stent placement for bile duct obstruction secondary to mass on 02/06/[address] Ring Appreciate COLLET GLUER, GI input Aspirin discontinued Eliquis on hold Needs follow-up with COLLET GLUER and GI as outpatient Continue Megace Avoid NSAIDs for 1 week Continue ciprofloxacin to complete 5-day course Plan to resume Eliquis after 72 hours if Hb stable Needs follow-up with oncology upon discharge Pathology from pancreatic biopsy pending Plan to discharge home today Symptomatic anemia Thrombocytopenia Secondary to above S/P 3 units PRBCs Monitor CBC and transfuse PRBCs as needed Hb 8.5 today Abdominal pain Suspected post ERCP pancreatitis -CT ABD:Pancreatic head mass lesion causing pancreatic ductal dilatation.Peripancreatic stranding could be due to your superimposed pancr eatitis. Discontinue IV fluids Advance to low-fat diet Abdominal pain resolved SVT: H/O P.Atrial flutter Increase metoprolol succinate to 25 mg BID Monitor and replete Eliquis as needed Appreciate cardiology input (2) Elevated troponin: Plan: Chronic troponin elevation Likely secondary to demand ischemia due to anemia No known CAD --ECHO: No regional wall motion abnormalities on echo Patient denies chest pain, dyspnea Pt was largely non-compliant and avoided medical evaluations per records (3) Leukocytosis: Plan: likely due to malignancy/reactive Blood cultures negative Monitor (4) Anemia: Plan: acute on chronic: Anemia of chronic disease Worsened due to vaginal bleeding Monitor CBC Transfuse PRBCs as needed (5) Paroxysmal atrial flutter: Plan: continue metoprolol Resume Apixaban--ok to resume per OBGYN Continue to hold Eliquis as recommended by GI (6) Left-sided weakness: Plan: at baseline, per has continuously improved since stroke continue PT/OT (7) HLD (hyperlipidemia): Plan: continue statin therapy (8) Obesity, morbid, BMI 40.0-49.9: Plan: BMI 42 DVT Px: SCDs Re:Anemia Total Time Total Time Spent Total Time Spent (In Minutes): 56 minutes Discharge Plan Discharge Items Patient Disposition: Home - Self-Care Reason For Visit: VAGINAL BLEEDING Discharge Diagnosis: Endometrial carcinoma Pancreatic mass Symptomatic anemia Thrombocytopenia Supraventricular tachycardia Activity: Per Instructions section Exercise/Sports: Wait until after follow-up appointment Non-emergency contact: Primary Care Provider and Ocular Care Technologist Call non-emergency contact if: you have any medication questions, your symptoms worsen, your pain is concerning for you and you have a fever Follow-up/Referrals: Vanesa Solorzano, [Primary Care Provider] - (Date & Time 02/12/2023 9:00 [facility] Diet: Heart Healthy Addtl Attending Provider Instructions: -- Follow-up with your primary care physician Dr. Solorzano on 02/12/2023 9:00 AM --Follow-up with your bridge painter at [facility] as recommended by --Follow up with your Oncologist as recommended -- Follow-up with your betting clerks Dr. Ring as advised --- Your pathology results from pancreatic mass biopsy is pending at the time of discharge. Follow-up with your physician for results. --Obtain Blood test (complete blood count) in 3 days and follow up with your physician to discuss if you can resume your Apixaban (Eliquis). --Complete the antibiotic course Ciprofloxacin as prescribed --Do not take group of medications belonging to NSAIDs group for 1 week as recommended by your betting clerks List Of these NSAID medications includes but not limited to: Diclofenac Ibuprofen, Motrin, Advil Toradol,ketorolac Naproxen, Aleve, Naprosyn You can take Tylenol as needed for pain or fever When buying [id number] pain medications please consult with pharmacy if you are not sure regarding ingredients, as a lot of the pain medications have combination of NSAIDs and Tylenol. Seek immediate medical attention if your symptoms reoccur or worsen Please take all medications as instructed on discharge list below. Please call if you have any questions or problems. You can reach a [facility] hospitalist on duty at [facility] 24 hours a day by calling [phone] Pending Studies at Discharge: Yes Studies:: Pathology results Stand-Alone Forms: My [facility], Smoking Cessation Medications and DC Order Prescriptions: New megestrol 20 mg tablet 20 mg PO BID Qty: 60 0RF oxycodone 5 mg Tablet 5 mg PO Q8H PRN (Reason: pain) Qty: 12 0RF Continued pantoprazole 40 mg tablet,delayed release (DR/EC) 40 mg PO HS Rx Instructions: Verified with [facility] pharmacist nitroglycerin 0.3 mg Tablet, Sublingual 0 mg sublingual UD Rx Instructions: 02/03/23-[facility] pharmacist couldn't verify Place 1 tab under the tongue as needed for chest pain, clonazepam 0.5 mg Tablet 0 mg PO BID PRN (Reason: Anxiety) Rx Instructions: [facility] pharmacist couldn't verify losartan 50 mg Tablet 50 mg PO BID 30 Days Qty: 60 0RF Rx Instructions: Verified with [facility] pharmacist atorvastatin 40 mg Tablet 40 mg PO QAM 30 Days Qty: 30 0RF Rx Instructions: Verified with [facility] pharmacist Changed metoprolol succinate 25 mg Tablet Extended Release 24 Hr 25 mg PO BID 30 Days Qty: 60 0RF Rx Instructions: Verified with [facility] pharmacist Held Eliquis 5 mg Tablet 5 mg PO BID Hold Instructions: Hold for 3 days as instructed Rx Instructions: Verified with [facility] pharmacist Discontinued aspirin 81 mg tablet,delayed release (DR/EC) 0 mg PO QAM Rx Instructions: [facility] pharmacist couldn't verify Discharge Orders: Discharge Order (Routine); Ordered 02/09/23 Ordered By: Jacques Robison Admission Data Admit Date/Time: 02/03/23 21:12 Attending Provider: Jacques Robison Admit Provider: Tiera Pepper Primary Care Provider: Vanesa Solorzano Other Providers: Tiera Pepper ; Yuriy Patino Christina ; Brittany Pearl ; Bj Ramirez ; Juve Tay ; Ronan Prater ; Mando Doty ; Susu Huerta ; Ruth Godwin V. ; Bren Cabezas ; Lizzeth Stroud ; Vandana Higgins ; Elvi Winters ; Mounika Villavicencio ; Manpreet Haro ; Heidi Mcclendon ; Randa Rios ; Valdemar Urban ; Montez Ly ; Jem Solorzano ; Celso Kamara ; Krish Fitch ; Loly Cheema ; Conchita Kasper ; Randa Webster ; Domenic Albarran ; Cecile Mena ; Shivani العلي ; Miriam Montelongo ; Nely Cool ; Ani Meredith ; Jade Stroud. ; Frederick Odell ; Natanael Ragsdale ; Celso Carter ; Hi Weaver ; Princess Weaver ; Julian Bansal ; Tiera Camacho ; Hermes Escamilla ; Jose C Peraza ; Kehinde Stubbs ; Quintin Gan ; Casi Watson ; Krish Guerin ; Estrellita Jolly ; Kanwal Guerin ; George Tay ; Randa Reed ; Cricket Regan. ; Loly Rankin ; Jeannie Aranda ; Geovanny Narayanan ; Caitlin Lopez A ; Sharon Dejesus A ; Clarita London ; Manuela Larson A ; Александр Larson V ; Davidson Lincoln ; Miriam Morrissey ; Wilmar Finney ; Aisha Davis ; Александр Mead ; Don Watson ; Janak Kaur ; Светлана Wilks ; Ashley Preciado ; Александр Logan ; You Pina ; Erna Hui ; Sammie Slaughter ; Valdemar Kowalski ; Bret Gan ; Marjan Rodriguez ; Aminata Tavarez ; Brett Trujillo ; Mundo Jacobsen ; Frederick Okeefe Jr ; Anali Van ; Terri Knight ; Doretha Milner ; Geovanny Mayberry ; Ani Novak ; Hi Cazares ; Adrian Rivera I. ; Eliza Perez S. ; Terri Sweet. ; Sofia Lopez ; Pedro Choudhury ; Issac Asher ; Mookie Orozco ; Bridger Julian V. ; Armando Escobar ; Jabari Rolle ; Brain Cherry
[2023-02-09] MEDS ORDERED: METOPROLOL SUCC 25MG EXT REL TAB PO SCH (21:00)
--- NOTE | 2023-02-13 06:16 | Coding Query ---
PATHOLOGY To promote full compliance with coding requirements relating to patient care, physician participation is requested in all cases of playground director uncertainty. 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 - Please see microscopic description. Screened by on at . at 1630. Thank you NICOLE Lyle [facility] INSANEZandra
== END 2023-02-09 13:30 | disposition home or self-care (01) | DRG 919 ==
LOC: ED 14:04 → SUATTDRO 21:12 → 2N 21:12

== ENCOUNTER 2023-03-26 16:04 | Inpatient (IN) ==
--- NOTE | 2023-03-26 16:33 | Emergency Department Note ---
Impression & Plan Acute hyponatremia, Obesity, morbid, BMI 40.0-49.9, Transaminitis ED Provider Note NAME: JOSHUA RÍOS AGE: 62 SEX: F : 1960 ARRIVES VIA: Ambulance INFORMANT: Patient ED PROVIDER(S): Gonzalo Anguiano DO CHIEF COMPLAINT: chills HPI: Patient is a 62-year-old female with a past medical history of a stroke, pancreatic cancer as well as an endometrium cancer who presents the ER following receiving chemo on Thursday. She was getting her IV and chemo removed and got very chilled and consequently sent over here. Could not get blood pressures. EMS when they arrived were able to get a blood pressure. She denies any headache or change in vision. No chest pain or shortness of breath. No nausea vomiting or diarrhea. No dysuria urgency or frequency. No other exacerbating remitting factors. PAST MEDICAL HISTORY:See Below PAST SURGICAL HISTORY:See Below FAMILY HISTORY:See Below SOCIAL HISTORY:See Below HOME MEDICATIONS:See Below ALLERGIES:See Below VITALS:See Below PHYSICAL EXAMINATION: GENERAL: Sitting up in bed, alert, well appearing, well nourished, no distress, non-toxic EYE EXAM: normal conjunctiva. OROPHARYNX: mucous membranes are moist NECK: supple, no nuchal rigidity, no adenopathy, non-tender LUNGS: Clear to auscultation. Normal chest wall mechanics HEART: no murmurs, S1 normal and S2 normal ABDOMEN: abdomen soft, non-tender, normo-active bowel sounds, no masses, no rebo und or guarding. BACK: Back is symmetrical on inspection and there is no deformity, no midline tenderness, no CVA tenderness. SKIN: no rashes and no bruising UPPER EXTREMITIES: upper extremities are grossly normal. LOWER EXTREMITIES: No pitting edema. NEURO EXAM: Normal sensorium, cranial nerves II-XII grossly intact, normal speech, no gross weakness of arms, no gross weakness of legs. No drift. Finger to nose intact. Gross sensation intact. MEDICAL DECISION MAKING: Patient is a 62-year-old female who presents ER for above-stated complaint. She was having her chemo removed today following getting the infusion on started on Thursday. She had the chills and they could not get a blood pressure and consequently called EMS. When EMS arrived they obtained an appropriate blood pressure. IV was established blood work was obtained and external records were reviewed upon arrival here. Labs show no significant leukocytosis. Mild anemia at 9.2. BMP with mild hyponatremia at 127. Lactate which was obtained after admission at 2.5. Mild transaminitis 200. Bilirubin was normal. UA was contaminated. Patient was given IV fluids and admitted for further work-up while here. Patient was never febrile or tachycardic. Triage Nursing notes reviewed. Limited review of prior medical records performed Vital Signs: reviewed and remarkable for no significant abnormalities Differential diagnosis: Infection, dehydration, metabolic abnormality, hypo/hyperglycemia, electrolyte disturbance, anemia, hypoxia, cardiac sources, intracerebral event, toxicologic, neurologic, as well as other pathologies. ER treatment provided: See below Diagnostics interpreted by me include EKG and cardiac monitoring as listed below: -Cardiac Monitoring: An order was placed for continuous cardiac monitoring. The monitor shows a rate of 70 with sinus rhythm. -ECG: Sinus rhythm rate of 74 Normal axis No PVCs QTc [address] wave in V6 -Laboratory studies:Interpreted by me as stated above in MDM and shown below. Imaging studies: Xrays: As interpreted by me: Portable AP upright 1 view the chest shows no focal infiltrate CTs show: CT abdomen pelvis showed no significant change Consultation(s): As described in MDM Procedures:none Critical Care: None Past Med/Surg History Medical History Anxiety CVA (cerebral vascular accident) 01/02/23 treated at [facility] - left sided deficits; will follow w/ [facility] neuro (06/2023 soonest appointment) GERD (gastroesophageal reflux disease) History of transesophageal echocardiography ([facility]IL[facility]ERTO) HLD (hyperlipidemia) HTN (hypertension) does not follow w/ cardio, has an appointment scheduled to see S cardio 02/19/2023 Hx of mammogram Hx of rheumatic fever childhood Mass of pancreas Obesity, morbid, BMI 40.0-49.9 Paroxysmal atrial flutter Poor historian SVT (supraventricular tachycardia) Surgical History History of esophagogastroduodenoscopy (EGD) Hx of appendectomy Hx of colonoscopy Family History Father , age 64 prostate cancer Prostate cancer Grandmother (Paternal) Cancer Breast cancer Social History Smoking Status: Never smoker Second Hand Exposure: No; Do You Dip or Chew Tobacco: No; Hx Alcohol Use: Yes Alcohol Intake Frequency: Monthly or Less Hx Substance Use: No Preferred Language: Portuguese Communication Ability: Effective Sql Database Administrator Required: No Beliefs That Will Affect Care: None Current Living Situation: Spouse current occupational status: employed 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 Feels Safe at Home: Yes Assistive Devices: Walker Allergies Allergies Allergy/AdvReac Type Severity Reaction Status Date / Time No Known Allergies Allergy Verified 02/06/23 10:40 Home Meds Home Medications Medication Instructions Recorded Confirmed nitroglycerin 0.3 mg sublingual 0 mg sublingual UD 01/02/23 03/26/23 tablet apixaban 5 mg tablet (Eliquis) 5 mg PO BID 01/30/23 03/26/23 acetaminophen 500 mg tablet 500 mg PO TID 03/26/23 03/26/23 esomeprazole magnesium 40 mg 40 mg PO HS 03/26/23 03/26/23 capsule,delayed release (Nexium) loratadine 10 mg tablet 10 mg PO DIRECTED 03/26/23 03/26/23 mirtazapine 30 mg tablet 30 mg PO DAILY 03/26/23 03/26/23 ondansetron HCl 8 mg tablet 8 mg PO Q8H PRN Nausea 03/26/23 03/26/23 prochlorperazine maleate 10 mg 10 mg PO Q6H PRN Nausea 03/26/23 03/26/23 tablet Previous Rx's Medication Instructions Recorded megestrol 20 mg tablet 20 mg PO BID #60 tabs 02/09/23 oxycodone 5 mg tablet 5 mg PO Q8H PRN pain #12 tabs 02/09/23 metoprolol succinate 25 mg 25 mg PO BID #60 tabs 02/10/23 tablet,extended release 24 hr Results & Data (ED) Vital Signs Vital Signs - 24 hr 03/26/23 16:09 03/26/23 16:33 03/26/23 16:27 Pulse Rate 72 74 Pulse Rate [Left Finger] 80 Pulse Rhythm Regular Pulse Rhythm [Left Finger] Regular Pulse Strength [Left Finger] Normal Respiratory Rate 22 22 20 Respiratory Effort / Characteristics Non-Labored Spontaneous Respiratory Depth Normal Respiratory Pattern Regular Blood Pressure 152/94 H Blood Pressure [Left Arm] 152/94 H Blood Pressure Mean 113 Blood Pressure Mean [Left Arm] 113 Blood Pressure Position Sitting Blood Pressure Position [Left Arm] Sitting Pulse Oximetry 98 94 95 Oxygen Delivery Method Room Air Room Air Sepsis Recent Fever Within 48 Hours No Sepsis New/Unexplained Change in Mental Status No Sepsis Action Taken by Nursing No Action Required 03/26/23 16:11 03/26/23 16:27 03/26/23 16:45 Pulse Rate 74 Pulse Rate [Left Finger] 82 75 Pulse Rhythm Pulse Rhythm [Left Finger] Regular Regular Pulse Strength [Left Finger] Normal Normal Respiratory Rate 20 20 Respiratory Effort / Characteristics Non-Labored Spontaneous Respiratory Depth Normal Normal Respiratory Pattern Regular Blood Pressure Blood Pressure [Left Arm] 132/89 Blood Pressure Mean Blood Pressure Mean [Left Arm] 103 Blood Pressure Position Blood Pressure Position [Left Arm] Sitting Pulse Oximetry 98 99 Oxygen Delivery Method Room Air Room Air Sepsis Recent Fever Within 48 Hours Sepsis New/Unexplained Change in Mental Status Sepsis Action Taken by Nursing 03/26/23 17:00 03/26/23 17:15 03/26/23 17:30 Pulse Rate Pulse Rate [Left Finger] 78 72 71 Pulse Rhythm Pulse Rhythm [Left Finger] Regular Regular Regular Pulse Strength [Left Finger] Normal Normal Normal Respiratory Rate 18 18 18 Respiratory Effort / Characteristics Non-Labored Spontaneous Non-Labored Spontaneous Non-Labored Spontaneous Respiratory Depth Normal Normal Normal Respiratory Pattern Regular Regular Regular Blood Pressure Blood Pressure [Left Arm] 111/56 L 113/59 L 114/64 Blood Pressure Mean Blood Pressure Mean [Left Arm] 74 77 80 Blood Pressure Position Blood Pressure Position [Left Arm] Sitting Sitting Pulse Oximetry 97 97 93 Oxygen Delivery Method Room Air Room Air Room Air Sepsis Recent Fever Within 48 Hours Sepsis New/Unexplained Change in Mental Status Sepsis Action Taken by Nursing 03/26/23 17:45 03/26/23 19:00 03/26/23 20:00 Pulse Rate 90 81 Pulse Rate [Left Finger] 68 Pulse Rhythm Pulse Rhythm [Left Finger] Regular Pulse Strength [Left Finger] Normal Respiratory Rate 18 16 19 Respiratory Effort / Characteristics Non-Labored Spontaneous Respiratory Depth Normal Respiratory Pattern Regular Blood Pressure 122/79 108/60 Blood Pressure [Left Arm] Blood Pressure Mean 93 76 Blood Pressure Mean [Left Arm] Blood Pressure Position Blood Pressure Position [Left Arm] Pulse Oximetry 98 100 94 Oxygen Delivery Method Room Air Room Air Room Air Sepsis Recent Fever Within 48 Hours Sepsis New/Unexplained Change in Mental Status Sepsis Action Taken by Nursing Laboratory Data 03/26/23 16:20 03/26/23 16:20 Lab Results 03/26/23 03/26/23 03/26/23 Range/Units 16:20 16:20 16:20 WBC 9.57 (4.8-10.8) K/ul RBC 3.48 L (4.20-5.40) M/uL Hgb 9.2 L (12.0-16.0) g/dl Hct 28.8 L (37.0-47.0) % MCV 82.8 (80.0-100.0) fL MCH 26.4 (25.0-34.0) pg MCHC 31.9 L (32.0-36.0) g/dL RDW Std Deviation 47.5 H (36.4-46.3) fL RDW Coeff of Kristin 15.7 H (11.5-14.5) % Plt Count 161 (130-400) K/uL MPV 10.7 (9.4-12.4) fL Immature Gran % (Auto) 0.3 % Neut % (Auto) 93.5 % Lymph % (Auto) 4.7 % Mckenzie % (Auto) 1.4 % Eos % (Auto) 0.1 % Baso % (Auto) 0.0 % Neut # (Auto) 8.95 H (1.40-6.50) K/uL Lymph # (Auto) 0.45 L (1.20-3.40) K/uL Mckenzie # (Auto) 0.13 (0.11-0.59) K/uL Eos # (Auto) 0.01 (0.00-0.50) K/uL Baso # (Auto) 0.00 (0.00-0.20) K/uL Immature Gran # (Auto) 0.03 (0.01-0.20) K/uL Polychromasia 1+ Echinocytes 1+ Sodium 127 L (136-145) mmol/L Potassium 3.9 (3.5-5.1) mmol/L Chloride 96 L (98-107) mmol/L Carbon Dioxide 22 (21-32) mmol/L Anion Gap 9 (3-11) BUN 30 H (6-23) mg/dl Creatinine 1.01 (0.6-1.2) mg/dl Est Cr Clr Drug Dosing 65.4 ml/min Est GFR ( Amer) 70.1 ml/min Est GFR (Non-Af Amer) 60.5 ml/min BUN/Creatinine Ratio 29.7 H (10-20) Glucose 262 H (70-99(Fasting)) mg/dl Lactate (0.4-2.0) mmol/L Calcium 8.6 (8.6-10.3) mg/dl Magnesium 2.2 (1.7-2.4) mg/dl Total Bilirubin 0.9 (0.2-1.0) mg/dl Direct Bilirubin 0.3 H (0-0.2) mg/dl AST 246 H (13-39) U/L ALT 186 H (7-52) U/L Alkaline Phosphatase 285 H (34-104) U/L Total Protein 6.1 (6.0-8.3) gm/dl Albumin 3.7 (3.4-5.0) gm/dl Procalcitonin 0.54 H (0-0.5) ng/ml Urine Color Urine Appearance (Clear) Urine pH (4.5-7.5) Ur Specific [place] (1.000-1.030) Urine Protein (Negative) Urine Glucose (UA) (Negative) Urine Ketones (Negative) Urine Blood (Negative) Urine Nitrite (Negative) Urine Bilirubin (Negative) Urine Urobilinogen (Negative) Ur Leukocyte Esterase (Negative) Urine WBC (Auto) (0-5) /hpf Urine RBC (Auto) (0-4) /hpf U Hyaline Cast (Auto) (0-5) /lpf U Epithel Cells (Auto) (0-5) /lpf Urine Bacteria (Auto) (Negative) Granular Casts (0) /lpf Urine Yeast 03/26/23 03/26/23 Range/Units 16:35 19:20 WBC (4.8-10.8) K/ul RBC (4.20-5.40) M/uL Hgb (12.0-16.0) g/dl Hct (37.0-47.0) % MCV (80.0-100.0) fL MCH (25.0-34.0) pg MCHC (32.0-36.0) g/dL RDW Std Deviation (36.4-46.3) fL RDW Coeff of Kristin (11.5-14.5) % Plt Count (130-400) K/uL MPV (9.4-12.4) fL Immature Gran % (Auto) % Neut % (Auto) % Lymph % (Auto) % Mckenzie % (Auto) % Eos % (Auto) % Baso % (Auto) % Neut # (Auto) (1.40-6.50) K/uL Lymph # (Auto) (1.20-3.40) K/uL Mckenzie # (Auto) (0.11-0.59) K/uL Eos # (Auto) (0.00-0.50) K/uL Baso # (Auto) (0.00-0.20) K/uL Immature Gran # (Auto) (0.01-0.20) K/uL Polychromasia Echinocytes Sodium (136-145) mmol/L Potassium (3.5-5.1) mmol/L Chloride (98-107) mmol/L Carbon Dioxide (21-32) mmol/L Anion Gap (3-11) BUN (6-23) mg/dl Creatinine (0.6-1.2) mg/dl Est Cr Clr Drug Dosing ml/min Est GFR ( Amer) ml/min Est GFR (Non-Af Amer) ml/min BUN/Creatinine Ratio (10-20) Glucose (70-99(Fasting)) mg/dl Lactate 2.5 H* (0.4-2.0) mmol/L Calcium (8.6-10.3) mg/dl Magnesium (1.7-2.4) mg/dl Total Bilirubin (0.2-1.0) mg/dl Direct Bilirubin (0-0.2) mg/dl AST (13-39) U/L ALT (7-52) U/L Alkaline Phosphatase (34-104) U/L Total Protein (6.0-8.3) gm/dl Albumin (3.4-5.0) gm/dl Procalcitonin (0-0.5) ng/ml Urine Color Dark Yellow Urine Appearance Cloudy A (Clear) Urine pH 5.5 (4.5-7.5) Ur Specific [place] 1.022 (1.000-1.030) Urine Protein 2+ H (Negative) Urine Glucose (UA) Trace H (Negative) Urine Ketones Negative (Negative) Urine Blood 1+ H (Negative) Urine Nitrite Negative (Negative) Urine Bilirubin 1+ H (Negative) Urine Urobilinogen Negative (Negative) Ur Leukocyte Esterase 1+ H (Negative) Urine WBC (Auto) 10-30 H (0-5) /hpf Urine RBC (Auto) 0-4 (0-4) /hpf U Hyaline Cast (Auto) 5-10 H (0-5) /lpf U Epithel Cells (Auto) >30 H (0-5) /lpf Urine Bacteria (Auto) 1+ H (Negative) Granular Casts 5-10 H (0) /lpf Urine Yeast Not Reportable Administered Medications Discontinued Medications Ioversol (Optiray 320 100ml) 90 ml IV ONCE ONE Stop: 03/26/23 19:46 Last Admin: 03/26/23 19:45 Dose: 90 ml Documented By: NATACHA Imaging Data Radiologist's Impression: Chest X-Ray 03/26/23 16:27 XR chest 1V portable CLINICAL HISTORY: Sepsis TECHNIQUE: Single frontal radiograph of the chest was obtained. Comparison: Comparison is made to chest radiograph 06/06/2020 FINDINGS: A port catheter is seen. The cardiomediastinal silhouette is normal. The lungs are clear. No evidence of pleural effusion or pneumothorax. IMPRESSION: No acute abnormalities and in particular no radiographic evidence of pneumonia. ACT 112: Negative or not required by law. Electronically signed by: Janak Joy M.D. 03/26/2023 5:49 PM Abdomen/Pelvis CT 03/26/23 19:04 Exam(s): CT ABDOMEN + PELVIS With Contrast IV Amt: 90 ml optiray 320 EXAM: CT Abdomen and Pelvis With Intravenous Contrast CLINICAL HISTORY: Reason for exam: Transaminitis. TECHNIQUE: Axial computed tomography images of the abdomen and pelvis with intravenous contrast. CTDI is 28.14 mGy and DLP is 1443.54 mGy-cm. Automated exposure control was utilized for the study. A dose lowering technique was utilized adhering to the principles of ALARA. CONTRAST: Patient received 90 ml optiray 320 of IV contrast COMPARISON: No relevant prior studies available. FINDINGS: Lung bases: Unremarkable. No mass. No consolidation. ABDOMEN: Liver: Unremarkable. No mass. Gallbladder and bile ducts: Mild air in the gallbladder. Pancreatic head mass measures approximately 4.7 x 4.4 cm, highly concerning for adenocarcinoma. Common bile duct stent. Pneumobilia. No calcified stones. Pancreas: Dilated main pancreatic duct. Spleen: Unremarkable. No splenomegaly. Adrenals: Unremarkable. No mass. Kidneys and ureters: Unremarkable. No solid mass. No hydronephrosis. Stomach and bowel: Mild wall thickening of the adjacent duodenum, concerning for duodenitis. Circumferential wall thickening of the ascending colon, correlate for mild colitis. No obstruction. PELVIS: Appendix: No findings to suggest acute appendicitis. Bladder: Unremarkable. No mass. Reproductive: IUD in the uterus. ABDOMEN and PELVIS: Intraperitoneal space: Unremarkable. No free air. No significant fluid collection. Bones/joints: No acute fracture. No dislocation. Soft tissues: Unremarkable. Vasculature: Unremarkable. No abdominal aortic aneurysm. Lymph nodes: Metastatic. Pain rated lymph nodes are present. IMPRESSION: 1. Mild wall thickening of the adjacent duodenum, concerning for duodenitis. 2. Metastatic. Pain rated lymph nodes are present. 3. Circumferential wall thickening of the ascending colon, correlate for mild colitis. 4. Pancreatic head mass measures approximately 4.7 x 4.4 cm, highly concerning for adenocarcinoma. Common bile duct stent. Pneumobilia. Electronically signed by: Jacob Whitlock MD 03/26/23 20:28 PM Discharge Plan Visit Data Chief Complaint: Referred by Doctor Stated Complaint: REFERRED BY DOCTOR ED Provider: Gonzalo Anguiano Discharge Problem: Acute hyponatremia, Obesity, morbid, BMI 40.0-49.9, Transaminitis Forms Stand Alone Forms: [facility] [employer] Prescriptions Prescriptions: No Action Eliquis 5 mg Tablet 5 mg PO BID Hold Instructions: Hold for 3 days as instructed megestrol 20 mg tablet 20 mg PO BID Qty: 60 0RF oxycodone 5 mg Tablet 5 mg PO Q8H PRN (Reason: pain) Qty: 12 0RF metoprolol succinate 25 mg tablet extended release 24 hr 25 mg PO BID Qty: 60 1RF nitroglycerin 0.3 mg Tablet, Sublingual 0 mg sublingual UD Rx Instructions: 02/03/23-[facility] pharmacist couldn't verify Place 1 tab under the tongue as needed for chest pain, ondansetron HCl 8 mg tablet 8 mg PO Q8H PRN (Reason: Nausea) prochlorperazine maleate 10 mg tablet 10 mg PO Q6H PRN (Reason: Nausea) acetaminophen 500 mg tablet 500 mg PO TID Rx Instructions: per , they give her one tab in the am, afternoon and pm mirtazapine 30 mg tablet 30 mg PO DAILY esomeprazole magnesium [Nexium] 40 mg Capsule,Delayed Release(Dr/Ec) 40 mg PO HS loratadine 10 mg tablet 10 mg PO DIRECTED Rx Instructions: Used during chemo Referrals Referrals: Vanesa Solorzano DO [Primary Care Provider] -
[2023-03-26 16:54] LABS: Hematocrit (blood only) 28.8 % (37.0-47.0); Hemoglobin 9.2 g/dl (12.0-16.0); Mean Corpuscular Hemoglobin 26.4 pg (25.0-34.0); Mean Corpuscular Hgb Conc 31.9 g/dL (32.0-36.0); Mean Corpuscular Volume 82.8 fL (80.0-100.0); Mean Platelet Volume 10.7 fL (9.4-12.4); Platelet Count 161 K/uL (130-400); RDW Coefficient of Variation 15.7 % (11.5-14.5); RDW Standard Deviation 47.5 fL (36.4-46.3); Red Blood Count 3.48 M/uL (4.20-5.40); White Blood Count 9.57 K/ul (4.8-10.8)
[2023-03-26 17:12] LABS: Albumin Level 3.7 gm/dl (3.4-5.0); BUN Creatinine Ratio 29.7 (10-20); Bilirubin Direct 0.3 mg/dl (0-0.2); Bilirubin,Total 0.9 mg/dl (0.2-1.0); Calcium 8.6 mg/dl (8.6-10.3); Creatinine Clr Calc Pharmacy 65.4 ml/min; Est GFR (African American) 70.1 ml/min; Est GFR (Non-African American) 60.5 ml/min; Magnesium 2.2 mg/dl (1.7-2.4); Potassium 3.9 mmol/L (3.5-5.1); Total Protein 6.1 gm/dl (6.0-8.3)
[2023-03-26 17:17] LABS: Appearance Urine Cloudy (Clear); Bacteria Urine Automated 1+ (Negative); Blood Urine 1+ (Negative); Color Urine Dark Yellow; Epithelial Cell Urine Auto >30 /lpf (0-5); Glucose Urine UA Trace (Negative); Ketones Urine Negative (Negative); Leukocyte Esterase Urine 1+ (Negative); Nitrite Urine Negative (Negative); Protein Urine 2+ (Negative); Specific Gravity Urine 1.022 (1.000-1.030); Urobilinogen Urine Negative (Negative); pH Urine 5.5 (4.5-7.5)
[2023-03-26 17:23] LABS: Echinocytes 1+; Eosinophils # (auto) 0.01 K/uL (0.00-0.50); Eosinophils % (auto) 0.1 %; Immature Granulocytes # (auto) 0.03 K/uL (0.01-0.20); Immature Granulocytes % (auto) 0.3 %; Lymphocytes # (auto) 0.45 K/uL (1.20-3.40); Lymphocytes % (auto) 4.7 %; Monocytes # (auto) 0.13 K/uL (0.11-0.59); Monocytes % (auto) 1.4 %; Neutrophils # (auto) 8.95 K/uL (1.40-6.50); Neutrophils % (auto) 93.5 %; Polychromasia 1+
[2023-03-26 17:24] LABS: Bilirubin Urine 1+ (Negative)
[2023-03-26 17:26] LABS: RBC Urine Automated 0-4 /hpf (0-4)
--- NOTE | 2023-03-26 17:50 | XRay Report ---
XR chest 1V portable CLINICAL HISTORY: Sepsis TECHNIQUE: Single frontal radiograph of the chest was obtained. Comparison: Comparison is made to chest radiograph 06/06/2020 FINDINGS: A port catheter is seen. The cardiomediastinal silhouette is normal. The lungs are clear. No evidence of pleural effusion or pneumothorax. IMPRESSION: No acute abnormalities and in particular no radiographic evidence of pneumonia. ACT 112: Negative or not required by law. Electronically signed by: Janak Joy M.D. 03/26/2023 5:49 PM
[2023-03-26] MEDS ORDERED: OPTIRAY 320 100ml IV ONE (19:45)
--- NOTE | 2023-03-26 20:29 | CT Scan Report ---
Exam(s): CT ABDOMEN + PELVIS With Contrast IV Amt: 90 ml optiray 320 EXAM: CT Abdomen and Pelvis With Intravenous Contrast CLINICAL HISTORY: Reason for exam: Transaminitis. TECHNIQUE: Axial computed tomography images of the abdomen and pelvis with intravenous contrast. CTDI is 28.14 mGy and DLP is 1443.54 mGy-cm. Automated exposure control was utilized for the study. A dose lowering technique was utilized adhering to the principles of ALARA. CONTRAST: Patient received 90 ml optiray 320 of IV contrast COMPARISON: No relevant prior studies available. FINDINGS: Lung bases: Unremarkable. No mass. No consolidation. ABDOMEN: Liver: Unremarkable. No mass. Gallbladder and bile ducts: Mild air in the gallbladder. Pancreatic head mass measures approximately 4.7 x 4.4 cm, highly concerning for adenocarcinoma. Common bile duct stent. Pneumobilia. No calcified stones. Pancreas: Dilated main pancreatic duct. Spleen: Unremarkable. No splenomegaly. Adrenals: Unremarkable. No mass. Kidneys and ureters: Unremarkable. No solid mass. No hydronephrosis. Stomach and bowel: Mild wall thickening of the adjacent duodenum, concerning for duodenitis. Circumferential wall thickening of the ascending colon, correlate for mild colitis. No obstruction. PELVIS: Appendix: No findings to suggest acute appendicitis. Bladder: Unremarkable. No mass. Reproductive: IUD in the uterus. ABDOMEN and PELVIS: Intraperitoneal space: Unremarkable. No free air. No significant fluid collection. Bones/joints: No acute fracture. No dislocation. Soft tissues: Unremarkable. Vasculature: Unremarkable. No abdominal aortic aneurysm. Lymph nodes: Metastatic. Pain rated lymph nodes are present. IMPRESSION: 1. Mild wall thickening of the adjacent duodenum, concerning for duodenitis. 2. Metastatic. Pain rated lymph nodes are present. 3. Circumferential wall thickening of the ascending colon, correlate for mild colitis. 4. Pancreatic head mass measures approximately 4.7 x 4.4 cm, highly concerning for adenocarcinoma. Common bile duct stent. Pneumobilia. Electronically signed by: Jacob Whitlock MD 03/26/23 20:28 PM
--- NOTE | 2023-03-26 21:31 | History & Physical Report ---
Date of Service March 26, 2023 Assessment & Plan (1) Hypotension: Plan: 62-year-old female with past medical significant for recently diagnosed pancreatic cancer and endometrial cancer, recent stroke with left-sided weakness(01/16), history of paroxysmal atrial flutter, SVT, anxiety, history of elevated troponin, who is currently getting chemo for pancreatic cancer had chemo last Thursday and and today she was getting her IV and chemo removed when she had chills and the staff could not get blood pressure and EMS was called. Hypotension Patient getting chemo for pancreatic cancer Had chemo last Thursday Today while chemo and IV line was taken out she felt chills and and blood pressure could not be read. Patient is asymptomatic Currently hemodynamic stable Transaminitis Procalcitonin 0.5 Lactate 2.5 Possible UTI We will place on empiric IV Zosyn and IV fluids and monitoring in telemetry floor Hyponatremia Sodium 127 Sodium was 140 last month Getting fluids We will follow repeat labs If worsening will consult nephrology Duodenitis Colitis On CT scan We will place on IV Pepcid and continue po Protonix GI consult in a.m. Mild transaminitis AST 246, ALT 186 Alkaline phos is 285 Had a biliary stent We will follow repeat labs GI consult. Pancreatic cancer Chemo as per heme-onc Supposed to get Neulasta tomorrow as per the patient and will discuss with heme-onc in a.m. regarding Neulasta Endometrial cancer Recent diagnosis S/p IUD Follow-up with [facility] History of CVA Left-sided weakness Ambulatory dysfunction On Eliquis A flutter History of SVT Metoprolol succinate with holding parameters On Eliquis Anemia Hemoglobin 9.2 Required 3 units PRBC for bleeding after endometrial biopsy recently We will follow the labs DVT prophylaxis Eliquis Disposition telemetry floor Full code as per discussion with the patient and History of Present Illness Chief Complaint: Hypotension Primary Care Provider: Vanesa Solorzano DO 62-year-old female with past medical significant for recently diagnosed pancreatic cancer and endometrial cancer, recent stroke with left-sided we akness(01/16), history of paroxysmal atrial flutter, SVT, anxiety, history of elevated troponin, who is currently getting chemo for pancreatic cancer had chemo last Thursday and and today she was getting her IV and chemo removed when she had chills and the staff could not get blood pressure and EMS was called. During the episode she has not had any symptoms as per the patient. Patient and think she is dehydrated. Currently vitals are stable. Denies any fevers. No cough. No nausea or vomiting. Somewhat constipated. Normal bladder movements. Appetite is down. No dysphagia. No headache. No blurred visions. Has some runny nose. No sore throat. Currently afebrile. Currently no abdominal pain. Resting comfortably and hemodynamically stable. Patient has some confusion with the right and left side since stroke. Ambulates with a walker Past medical history as mentioned above Past surgical history colonoscopy, ligation of oviducts, appendectomy Social history . No smoking. Alcohol occasional. No drug use. Family history paternal grandmother had breast cancer. Mother has hyperlipidemia, osteoporosis. Father had prostate cancer. Brother has diabetes heart attack and stroke. Allergies Allergy/AdvReac Type Severity Reaction Status Date / Time No Known Allergies Allergy Verified 02/06/23 10:40 Home Medications Medication Instructions Recorded Confirmed Type nitroglycerin 0.3 mg sublingual 0 mg sublingual UD 01/02/23 03/26/23 History tablet apixaban 5 mg tablet (Eliquis) 5 mg PO BID 01/30/23 03/26/23 History megestrol 20 mg tablet 20 mg PO BID #60 tabs 02/09/23 03/26/23 Rx oxycodone 5 mg tablet 5 mg PO Q8H PRN pain #12 tabs 02/09/23 03/26/23 Rx metoprolol succinate 25 mg 25 mg PO BID #60 tabs 02/10/23 03/26/23 Rx tablet,extended release 24 hr acetaminophen 500 mg tablet 500 mg PO TID 03/26/23 03/26/23 History esomeprazole magnesium 40 mg 40 mg PO HS 03/26/23 03/26/23 History capsule,delayed release (Nexium) loratadine 10 mg tablet 10 mg PO DIRECTED 03/26/23 03/26/23 History mirtazapine 30 mg tablet 30 mg PO DAILY 03/26/23 03/26/23 History ondansetron HCl 8 mg tablet 8 mg PO Q8H PRN Nausea 03/26/23 03/26/23 History prochlorperazine maleate 10 mg 10 mg PO Q6H PRN Nausea 03/26/23 03/26/23 History tablet Past Med/Surg History Medical History Anxiety CVA (cerebral vascular accident) 01/02/23 treated at [facility] - left sided deficits; will follow w/ S neuro (06/2023 soonest appointment) GERD (gastroesophageal reflux disease) History of transesophageal echocardiography (GILBERTO) HLD (hyperlipidemia) HTN (hypertension) does not follow w/ cardio, has an appointment scheduled to see S cardio 02/19/2023 Hx of mammogram Hx of rheumatic fever childhood Mass of pancreas Obesity, morbid, BMI 40.0-49.9 Paroxysmal atrial flutter Poor historian SVT (supraventricular tachycardia) Surgical History History of esophagogastroduodenoscopy (EGD) Hx of appendectomy Hx of colonoscopy Family History Father , age 64 prostate cancer Prostate cancer Grandmother (Paternal) Cancer Breast cancer Social History Smoking Status: Never smoker Second Hand Exposure: No; Do You Dip or Chew Tobacco: No; Hx Alcohol Use: No Hx Substance Use: No Preferred Language: Maori Communication Ability: Effective Clerk Telegraph Service Required: No Beliefs That Will Affect Care: None Current Living Situation: Spouse current occupational status: employed 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 Head- atraumatic Eyes- PERRL, EOMI, ENT- oropharynx clear Neck- supple, no JVD, no adenopathy carotids +2/2, no bruits appreciated Lungs- clear to auscultation no wheezing or crackles. Heart- regular rate and rhythm; no murmur, no gallop. Abdomen- normal bowel sounds, soft, nontender, no distension. Extremities-mild pretibial edema, no erythema seen. Neuro- alert, oriented x 3; PERRL, EOMI; no facial palsy; no dysarthria; obeys commands moves extremities. Skin- warm & dry Results & Data Results & Data Vital Signs (Past 12 Hours) Vital Signs Pulse Pulse Resp BP BP Pulse Ox O2 Del Method 03/26/23 20:00 81 19 108/60 94 Room Air 03/26/23 19:00 90 16 122/79 100 Room Air 03/26/23 17:45 68 18 98 Room Air 03/26/23 17:30 71 18 114/64 93 Room Air 03/26/23 17:15 72 18 113/59 L 97 Room Air 03/26/23 17:00 78 18 111/56 L 97 Room Air 03/26/23 16:45 75 20 99 Room Air 03/26/23 16:27 82 20 132/89 98 Room Air 03/26/23 16:11 74 03/26/23 16:27 80 20 152/94 H 95 Room Air 03/26/23 16:33 74 22 94 Room Air 03/26/23 16:09 72 22 152/94 H 98 Diagnostic Findings Laboratory Results WBC 9.57 K/ul (4.8-10.8) 03/26/23 16:20 RBC 3.48 M/uL (4.20-5.40) L 03/26/23 16:20 Hgb 9.2 g/dl (12.0-16.0) L 03/26/23 16:20 Hct 28.8 % (37.0-47.0) L 03/26/23 16:20 MCV 82.8 fL (80.0-100.0) 03/26/23 16:20 MCH 26.4 pg (25.0-34.0) 03/26/23 16:20 MCHC 31.9 g/dL (32.0-36.0) L 03/26/23 16:20 RDW Std Deviation 47.5 fL (36.4-46.3) H 03/26/23 16:20 RDW Coeff of Kristin 15.7 % (11.5-14.5) H 03/26/23 16:20 Plt Count 161 K/uL (130-400) 03/26/23 16:20 MPV 10.7 fL (9.4-12.4) 03/26/23 16:20 Immature Gran % (Auto) 0.3 % 03/26/23 16:20 Neut % (Auto) 93.5 % 03/26/23 16:20 Lymph % (Auto) 4.7 % 03/26/23 16:20 [place] % (Auto) 1.4 % 03/26/23 16:20 Eos % (Auto) 0.1 % 03/26/23 16:20 Baso % (Auto) 0.0 % 03/26/23 16:20 Neut # (Auto) 8.95 K/uL (1.40-6.50) H 03/26/23 16:20 Lymph # (Auto) 0.45 K/uL (1.20-3.40) L 03/26/23 16:20 [place] # (Auto) 0.13 K/uL (0.11-0.59) 03/26/23 16:20 Eos # (Auto) 0.01 K/uL (0.00-0.50) 03/26/23 16:20 Baso # (Auto) 0.00 K/uL (0.00-0.20) 03/26/23 16:20 Immature Gran # (Auto) 0.03 K/uL (0.01-0.20) 03/26/23 16:20 Polychromasia 1+ 03/26/23 16:20 Echinocytes 1+ 03/26/23 16:20 Sodium 127 mmol/L (136-145) L 03/26/23 16:20 Potassium 3.9 mmol/L (3.5-5.1) 03/26/23 16:20 Chloride 96 mmol/L (98-107) L 03/26/23 16:20 Carbon Dioxide 22 mmol/L (21-32) 03/26/23 16:20 Anion Gap 9 (3-11) 03/26/23 16:20 BUN 30 mg/dl (6-23) H 03/26/23 16:20 Creatinine 1.01 mg/dl (0.6-1.2) 03/26/23 16:20 Est Cr Clr Drug Dosing 65.4 ml/min 03/26/23 16:20 Est GFR ( Amer) 70.1 ml/min 03/26/23 16:20 Est GFR (Non-Af Amer) 60.5 ml/min 03/26/23 16:20 BUN/Creatinine Ratio 29.7 (10-20) H 03/26/23 16:20 Glucose 262 mg/dl (70-99(Fasting)) H 03/26/23 16:20 Lactate 2.5 mmol/L (0.4-2.0) H* 03/26/23 19:20 Calcium 8.6 mg/dl (8.6-10.3) 03/26/23 16:20 Magnesium 2.2 mg/dl (1.7-2.4) 03/26/23 16:20 Total Bilirubin 0.9 mg/dl (0.2-1.0) 03/26/23 16:20 Direct Bilirubin 0.3 mg/dl (0-0.2) H 03/26/23 16:20 AST 246 U/L (13-39) H 03/26/23 16:20 ALT 186 U/L (7-52) H 03/26/23 16:20 Alkaline Phosphatase 285 U/L (34-104) H 03/26/23 16:20 Total Protein 6.1 gm/dl (6.0-8.3) 03/26/23 16:20 Albumin 3.7 gm/dl (3.4-5.0) 03/26/23 16:20 Procalcitonin 0.54 ng/ml (0-0.5) H 03/26/23 16:20 Urine Color Dark Yellow 03/26/23 16:35 Urine Appearance Cloudy (Clear) A 03/26/23 16:35 Urine pH 5.5 (4.5-7.5) 03/26/23 16:35 Ur Specific [place] 1.022 (1.000-1.030) 03/26/23 16:35 Urine Protein 2+ (Negative) H 03/26/23 16:35 Urine Glucose (UA) Trace (Negative) H 03/26/23 16:35 Urine Ketones Negative (Negative) 03/26/23 16:35 Urine Blood 1+ (Negative) H 03/26/23 16:35 Urine Nitrite Negative (Negative) 03/26/23 16:35 Urine Bilirubin 1+ (Negative) H 03/26/23 16:35 Urine Urobilinogen Negative (Negative) 03/26/23 16:35 Ur Leukocyte Esterase 1+ (Negative) H 03/26/23 16:35 Urine WBC (Auto) 10-30 /hpf (0-5) H 03/26/23 16:35 Urine RBC (Auto) 0-4 /hpf (0-4) 03/26/23 16:35 U Hyaline Cast (Auto) 5-10 /lpf (0-5) H 03/26/23 16:35 U Epithel Cells (Auto) >30 /lpf (0-5) H 03/26/23 16:35 Urine Bacteria (Auto) 1+ (Negative) H 03/26/23 16:35 Granular Casts 5-10 /lpf (0) H 03/26/23 16:35 Urine Yeast Not Reportable 03/26/23 16:35 Impressions Chest X-Ray 03/26/23 16:27 XR chest 1V portable CLINICAL HISTORY: Sepsis TECHNIQUE: Single frontal radiograph of the chest was obtained. Comparison: Comparison is made to chest radiograph 06/06/2020 FINDINGS: A port catheter is seen. The cardiomediastinal silhouette is normal. The lungs are clear. No evidence of pleural effusion or pneumothorax. IMPRESSION: No acute abnormalities and in particular no radiographic evidence of pneumonia. ACT 112: Negative or not required by law. Electronically signed by: Janak Joy M.D. 03/26/2023 5:49 PM Abdomen/Pelvis CT 03/26/23 19:04 Exam(s): CT ABDOMEN + PELVIS With Contrast IV Amt: 90 ml optiray 320 EXAM: CT Abdomen and Pelvis With Intravenous Contrast CLINICAL HISTORY: Reason for exam: Transaminitis. TECHNIQUE: Axial computed tomography images of the abdomen and pelvis with intravenous contrast. CTDI is 28.14 mGy and DLP is 1443.54 mGy-cm. Automated exposure control was utilized for the study. A dose lowering technique was utilized adhering to the principles of ALARA. CONTRAST: Patient received 90 ml optiray 320 of IV contrast COMPARISON: No relevant prior studies available. FINDINGS: Lung bases: Unremarkable. No mass. No consolidation. ABDOMEN: Liver: Unremarkable. No mass. Gallbladder and bile ducts: Mild air in the gallbladder. Pancreatic head mass measures approximately 4.7 x 4.4 cm, highly concerning for adenocarcinoma. Common bile duct stent. Pneumobilia. No calcified stones. Pancreas: Dilated main pancreatic duct. Spleen: Unremarkable. No splenomegaly. Adrenals: Unremarkable. No mass. Kidneys and ureters: Unremarkable. No solid mass. No hydronephrosis. Stomach and bowel: Mild wall thickening of the adjacent duodenum, concerning for duodenitis. Circumferential wall thickening of the ascending colon, correlate for mild colitis. No obstruction. PELVIS: Appendix: No findings to suggest acute appendicitis. Bladder: Unremarkable. No mass. Reproductive: IUD in the uterus. ABDOMEN and PELVIS: Intraperitoneal space: Unremarkable. No free air. No significant fluid collection. Bones/joints: No acute fracture. No dislocation. Soft tissues: Unremarkable. Vasculature: Unremarkable. No abdominal aortic aneurysm. Lymph nodes: Metastatic. Pain rated lymph nodes are present. IMPRESSION: 1. Mild wall thickening of the adjacent duodenum, concerning for duodenitis. 2. Metastatic. Pain rated lymph nodes are present. 3. Circumferential wall thickening of the ascending colon, correlate for mild colitis. 4. Pancreatic head mass measures approximately 4.7 x 4.4 cm, highly concerning for adenocarcinoma. Common bile duct stent. Pneumobilia. Electronically signed by: Jacob Whitlock MD 03/26/23 20:28 PM ECG Additional Comments: ECG normal sinus rhythm with rate of 74. Nonspecific ST abnormalities. No significant change was found Code Status & VTE Plan VTE Prophylaxis Plan VTE Prophylaxis will be ordered: Yes
[2023-03-26] MEDS ORDERED: oxyCODONE HCL IR 5 MG TAB (IMMEDIATE RELEASE) PO PRN (21:52)
[2023-03-26] MEDS ORDERED: NITROGLYCERIN SL 0.4 MG/TAB TAB SL PRN (21:52)
[2023-03-26] MEDS ORDERED: POLYETHYLENE (MIRALAX) 17 GM PACK PO PRN (21:52)
[2023-03-26] MEDS ORDERED: PIPERACILLIN/TAZOBACTAM 4.5 GM/120 ML BAG IV ONE (22:15)
[2023-03-26] MEDS: SODIUM CHLORIDE 0.9% 1,000 ML IV SCH (22:28)
[2023-03-26] MEDS: PANTOprazole 40 MG TAB PO SCH (22:28)
[2023-03-26] MEDS: APIXABAN 5 MG TABLET PO SCH (22:28)
[2023-03-27 04:48] LABS: Albumin Level 3.4 gm/dl (3.4-5.0); Bilirubin Direct 0.2 mg/dl (0-0.2); Bilirubin,Total 0.6 mg/dl (0.2-1.0); Calcium 8.5 mg/dl (8.6-10.3); Creatinine Clr Calc Pharmacy 74.2 ml/min; Est GFR (African American) 81.6 ml/min; Est GFR (Non-African American) 70.4 ml/min; Magnesium 2.1 mg/dl (1.7-2.4); Total Protein 5.7 gm/dl (6.0-8.3)
[2023-03-27 05:00] LABS: Basophils # (auto) 0.01 K/uL (0.00-0.20); Basophils % (auto) 0.1 %; Eosinophils # (auto) 0.03 K/uL (0.00-0.50); Eosinophils % (auto) 0.3 %; Hematocrit (blood only) 26.5 % (37.0-47.0); Hemoglobin 8.6 g/dl (12.0-16.0); Immature Granulocytes # (auto) 0.03 K/uL (0.01-0.20); Immature Granulocytes % (auto) 0.3 %; Lymphocytes # (auto) 0.49 K/uL (1.20-3.40); Lymphocytes % (auto) 5.2 %; Mean Corpuscular Hemoglobin 26.8 pg (25.0-34.0); Mean Corpuscular Hgb Conc 32.5 g/dL (32.0-36.0); Mean Corpuscular Volume 82.6 fL (80.0-100.0); Mean Platelet Volume 10.8 fL (9.4-12.4); Monocytes # (auto) 0.08 K/uL (0.11-0.59); Monocytes % (auto) 0.9 %; Neutrophils # (auto) 8.74 K/uL (1.40-6.50); Neutrophils % (auto) 93.2 %; Platelet Count 133 K/uL (130-400); RBC Morphology Unremarkable; RDW Coefficient of Variation 15.7 % (11.5-14.5); RDW Standard Deviation 47.3 fL (36.4-46.3); Red Blood Count 3.21 M/uL (4.20-5.40); White Blood Count 9.38 K/ul (4.8-10.8)
[2023-03-27] MEDS: PIPERACILLIN/TAZOBACTAM 4.5 GM in DEXTROSE 5% 100 ML IV SCH ×4 (06:14→22:21)
[2023-03-27] MEDS: SODIUM CHLORIDE 0.9% 1,000 ML IV SCH ×2 (06:16→13:56)
[2023-03-27] MEDS ORDERED: FAMOTIDINE 20MG/5ML IV PUSH IV ONE (08:16)
[2023-03-27] MEDS: MIRTAZAPINE TAB 15 MG TAB PO SCH (08:18)
[2023-03-27] MEDS: FAMOTIDINE 20 MG in SYRINGE 3 ML IV SCH ×2 (08:18→20:24)
[2023-03-27] MEDS: METOPROLOL SUCC 25MG EXT REL TAB PO SCH ×2 (08:19→20:26)
[2023-03-27] MEDS: APIXABAN 5 MG TABLET PO SCH ×2 (08:19→20:26)
[2023-03-27] MEDS: MEGESTROL ACETATE 40 MG TAB PO SCH ×2 (08:19→20:27)
--- NOTE | 2023-03-27 08:47 | Gastrointestinal Consultation ---
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 Labs notable for elevated lactate, procal, + UA, UCx pending, and elevated transaminases with normal bili. LFTs are trending down. CT nonacute biliary findings; suggestive of duodenitis and colitis however pt not having diarrhea or acute on chronic abd pain. Labs, CT findings may be related to infectious etiology, recent cancer diagnoses, chemo treatments, vs other. Lack of bilirubin elevated or new biliary findings on CT suggest against biliary obstruction. Abd soft, nondistended on exam; she tolerated her breakfast. Has remained afebrile and no WBC elevation. - Check acute Hepatitis panel - Check APAP level - Trend LFTs - Avoid hepatotoxins as able - Agree wih empiric ABX as per primary team - Await UCx, Bcx Supervising Physician Co-Signing Physician Notes I have seen and examined the patient, agree with pe and plan as documented. History of Present Illness Reason for Consultation: transaminitis. hx of pancreatic cancer Requesting Physician: Dr. Gillette Attending Physician: Tera Byrne MD History of Present Illness This is a 62-year-old female with complicated PMHx CV dz, atrial fibrillation on Eliquis, recent CVA affecting the left side of the body, anxiety, also recent diagnosis of unresectable pancreatic cancer s/p recent EGD/EUS/ERCP on 02/06/23 showing a large pancreatic head mass w/ obstructing biliary stricture, s/p CBD stenting, as well as recent dx of endometrial cancer. The pancreatic cancer seems to have locally advanced disease involving the pancreatic head with invasion of the portal vein. She recently started chemotherapy (had 1 dose) and presented yesterday with hypotension and chills which occurred during her chemo dose. She has transaminitis which is new but overnight this is trending down; has normal bili. Had hyponatremia with Na 127, improved to 130. Normal WBC; had elevated lactate and procal. UA with ? UTI. Bcx, UCx pending. Is on empiric ABX. CTAP w/ IV contrast showed pancreatic head mass w/ dilated PD, possible ascending colitis/duodenitis, CBD stent in place. CXR nonacute. Today she was seen in the ER; still waiting a bed upstairs. She tolerated a regular breakfast. Has chronic abd pain but nothing acute. Takes Tylenol at home for her abd pain but she's not clear of the dose. No nausea, vomiting, hematemesis, melena, hematochezia, diarrhea, fever, jaundice, icterus, dark urine, watson stool. No ETOH. No syncope, presyncope, CP, SOB. EGD 02/06/23: - Normal esophagus. - Z-line regular, 35 cm from the incisors. - Normal stomach. - Normal examined duodenum. - No specimens collected. EUS 02/06/23: - There was dilation in the common bile duct which measured up to 9 mm. - There was a suggestion of a stricture in the lower third of the main bile duct. - There was dilation in the gallbladder which measured up to 35 mm. - Multiple stones were visualized endosonographically in the gallbladder. - A mass was identified in the pancreatic head. This was staged T3 N1 Mx by endosonographic criteria. The staging applies if malignancy is confirmed. Fine needle aspiration performed. The mass appeared to be obstructing the distal common bile duct - One enlarged lymph node was visualized in the paradise hepatis region. - A mass measuring 11 mm by 11 mm was identified endosonographically in the left adrenal gland. This was thought to represent an adrenal adenoma on other imaging studies. ERCP 02/06/23: The major papilla appeared to be bulging. - The upper third of the main bile duct and middle third of the main bile duct were moderately dilated, with a mass causing an obstruction. - A biliary sphincterotomy was performed. - One covered metal stent was placed into the common bile duct. - Indomethacin given to decrease risk of post-ERCP pancreatitis. Pancreas, head (fine-needle aspiration): - Pancreatic ductal adenocarcinoma is seen. Last colonoscopy 2013: - The procedure was aborted due to bowel stenosis. - Stricture in the sigmoid colon at 35 cm. Biopsied Allergies Allergy/AdvReac Type Severity Reaction Status Date / Time No Known Allergies Allergy Verified 02/06/23 10:40 Home Medications Medication Instructions Recorded Confirmed Type nitroglycerin 0.3 mg sublingual 0 mg sublingual UD 01/02/23 03/26/23 History tablet apixaban 5 mg tablet (Eliquis) 5 mg PO BID 01/30/23 03/26/23 History megestrol 20 mg tablet 20 mg PO BID #60 tabs 02/09/23 03/26/23 Rx oxycodone 5 mg tablet 5 mg PO Q8H PRN pain #12 tabs 02/09/23 03/26/23 Rx metoprolol succinate 25 mg 25 mg PO BID #60 tabs 02/10/23 03/26/23 Rx tablet,extended release 24 hr acetaminophen 500 mg tablet 500 mg PO TID 03/26/23 03/26/23 History esomeprazole magnesium 40 mg 40 mg PO HS 03/26/23 03/26/23 History capsule,delayed release (Nexium) loratadine 10 mg tablet 10 mg PO DIRECTED 03/26/23 03/26/23 History mirtazapine 30 mg tablet 30 mg PO DAILY 03/26/23 03/26/23 History ondansetron HCl 8 mg tablet 8 mg PO Q8H PRN Nausea 03/26/23 03/26/23 History prochlorperazine maleate 10 mg 10 mg PO Q6H PRN Nausea 03/26/23 03/26/23 History tablet Patient History Medical History Anxiety CVA (cerebral vascular accident) 01/02/23 treated at [facility] - left sided deficits; will follow w/ S neuro (06/2023 soonest appointment) GERD (gastroesophageal reflux disease) History of transesophageal echocardiography ([facility]O) HLD (hyperlipidemia) HTN (hypertension) does not follow w/ cardio, has an appointment scheduled to see S cardio 02/19/2023 Hx of mammogram Hx of rheumatic fever childhood Mass of pancreas Obesity, morbid, BMI 40.0-49.9 Paroxysmal atrial flutter Poor historian SVT (supraventricular tachycardia) Surgical History History of esophagogastroduodenoscopy (EGD) Hx of appendectomy Hx of colonoscopy Family History Father , age 64 prostate cancer Prostate cancer Grandmother (Paternal) Cancer Breast cancer Social History Smoking Status: Never smoker Second Hand Exposure: No; Do You Dip or Chew Tobacco: No; Hx Alcohol Use: No Hx Substance Use: No Preferred Language: Macedonian Communication Ability: Effective Flask Pusher Required: No Beliefs That Will Affect Care: None Current Living Situation: Spouse current occupational status: employed 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 Feels Safe at Home: Yes Safety Concerns: Feels Safe At This Time Assistive Devices: Walker Review of Systems Review of Systems: All systems reviewed & are unremarkable except as noted in HPI & below Cardiovascular: Additional Comments: Physical Exam Constitutional: well developed, well nourished and comfortable; no acute distress Eyes: Sclera anicteric, no conjunctival injection ENMT: moist mucous membranes, no pallor Neck: trachea midline supple Respiratory: normal respiratory effort, lungs clear to auscultation Cardiovascular: RRR, 2/6 systolic murmur, no pedal edema Gastrointestinal (Abdomen): Soft, mild generalized tenderness, no rebound, guarding, distention Skin: no rashes, warm and dry Neurologic: alert and oriented x 3, residual left sided weakness from her stroke Psychiatric: Emotionally labile Results & Data Vital Signs (Past 12 Hours) Vital Signs Pulse Pulse Pulse Resp BP BP Pulse Ox 03/27/23 07:07 85 03/27/23 04:20 93 H 21 116/69 96 03/27/23 03:00 85 16 97 03/26/23 23:16 83 03/26/23 23:00 92 H 19 133/66 98 03/26/23 22:30 98 H 17 123/75 98 03/26/23 21:30 73 124/79 96 O2 Del Method 03/27/23 07:07 03/27/23 04:20 Room Air 03/27/23 03:00 Room Air 03/26/23 23:16 03/26/23 23:00 Room Air 03/26/23 22:30 Room Air 03/26/23 21:30 Room Air Laboratory Results 03/27/23 03/27/23 03/26/23 Range/Units 04:16 04:16 23:03 WBC 9.38 (4.8-10.8) K/ul RBC 3.21 L (4.20-5.40) M/uL Hgb 8.6 L (12.0-16.0) g/dl Hct 26.5 L (37.0-47.0) % MCV 82.6 (80.0-100.0) fL MCH 26.8 (25.0-34.0) pg MCHC 32.5 (32.0-36.0) g/dL RDW Std Deviation 47.3 H (36.4-46.3) fL RDW Coeff of Kristin 15.7 H (11.5-14.5) % Plt Count 133 (130-400) K/uL MPV 10.8 (9.4-12.4) fL Immature Gran % (Auto) 0.3 % Neut % (Auto) 93.2 % Lymph % (Auto) 5.2 % Independence % (Auto) 0.9 % Eos % (Auto) 0.3 % Baso % (Auto) 0.1 % Neut # (Auto) 8.74 H (1.40-6.50) K/uL Lymph # (Auto) 0.49 L (1.20-3.40) K/uL Independence # (Auto) 0.08 L (0.11-0.59) K/uL Eos # (Auto) 0.03 (0.00-0.50) K/uL Baso # (Auto) 0.01 (0.00-0.20) K/uL Immature Gran # (Auto) 0.03 (0.01-0.20) K/uL RBC Morphology Unremarkable Polychromasia Echinocytes Sodium 130 L (136-145) mmol/L Potassium 4.0 (3.5-5.1) mmol/L Chloride 100 (98-107) mmol/L Carbon Dioxide 23 (21-32) mmol/L Anion Gap 7 (3-11) BUN 24 H (6-23) mg/dl Creatinine 0.89 (0.6-1.2) mg/dl Est Cr Clr Drug Dosing 74.2 ml/min Est GFR ( Amer) 81.6 ml/min Est GFR (Non-Af Amer) 70.4 ml/min BUN/Creatinine Ratio 27.0 H (10-20) Glucose 220 H (70-99(Fasting)) mg/dl Lactate (0.4-2.0) mmol/L Calcium 8.5 L (8.6-10.3) mg/dl Phosphorus 2.0 L (2.5-4.9) mg/dl Magnesium 2.1 (1.7-2.4) mg/dl Total Bilirubin 0.6 (0.2-1.0) mg/dl Direct Bilirubin 0.2 (0-0.2) mg/dl AST 117 H (13-39) U/L ALT 139 H (7-52) U/L Alkaline Phosphatase 233 H (34-104) U/L Total Protein 5.7 L (6.0-8.3) gm/dl Albumin 3.4 (3.4-5.0) gm/dl Procalcitonin (0-0.5) ng/ml Urine Color Urine Appearance (Clear) Urine pH (4.5-7.5) Ur Specific Elmo (1.000-1.030) Urine Protein (Negative) Urine Glucose (UA) (Negative) Urine Ketones (Negative) Urine Blood (Negative) Urine Nitrite (Negative) Urine Bilirubin (Negative) Urine Urobilinogen (Negative) Ur Leukocyte Esterase (Negative) Urine WBC (Auto) (0-5) /hpf Urine RBC (Auto) (0-4) /hpf U Hyaline Cast (Auto) (0-5) /lpf U Epithel Cells (Auto) (0-5) /lpf Urine Bacteria (Auto) (Negative) Granular Casts (0) /lpf Urine Yeast Nasal Screen MRSA (PCR) Negative (Negative) 03/26/23 03/26/23 03/26/23 Range/Units 22:52 19:20 16:35 WBC (4.8-10.8) K/ul RBC (4.20-5.40) M/uL Hgb (12.0-16.0) g/dl Hct (37.0-47.0) % MCV (80.0-100.0) fL MCH (25.0-34.0) pg MCHC (32.0-36.0) g/dL RDW Std Deviation (36.4-46.3) fL RDW Coeff of Kristin (11.5-14.5) % Plt Count (130-400) K/uL MPV (9.4-12.4) fL Immature Gran % (Auto) % Neut % (Auto) % Lymph % (Auto) % Independence % (Auto) % Eos % (Auto) % Baso % (Auto) % Neut # (Auto) (1.40-6.50) K/uL Lymph # (Auto) (1.20-3.40) K/uL Independence # (Auto) (0.11-0.59) K/uL Eos # (Auto) (0.00-0.50) K/uL Baso # (Auto) (0.00-0.20) K/uL Immature Gran # (Auto) (0.01-0.20) K/uL RBC Morphology Polychromasia Echinocytes Sodium (136-145) mmol/L Potassium (3.5-5.1) mmol/L Chloride (98-107) mmol/L Carbon Dioxide (21-32) mmol/L Anion Gap (3-11) BUN (6-23) mg/dl Creatinine (0.6-1.2) mg/dl Est Cr Clr Drug Dosing ml/min Est GFR ( Amer) ml/min Est GFR (Non-Af Amer) ml/min BUN/Creatinine Ratio (10-20) Glucose (70-99(Fasting)) mg/dl Lactate 3.1 H* 2.5 H* (0.4-2.0) mmol/L Calcium (8.6-10.3) mg/dl Phosphorus (2.5-4.9) mg/dl Magnesium (1.7-2.4) mg/dl Total Bilirubin (0.2-1.0) mg/dl Direct Bilirubin (0-0.2) mg/dl AST (13-39) U/L ALT (7-52) U/L Alkaline Phosphatase (34-104) U/L Total Protein (6.0-8.3) gm/dl Albumin (3.4-5.0) gm/dl Procalcitonin (0-0.5) ng/ml Urine Color Dark Yellow Urine Appearance Cloudy A (Clear) Urine pH 5.5 (4.5-7.5) Ur Specific Elmo 1.022 (1.000-1.030) Urine Protein 2+ H (Negative) Urine Glucose (UA) Trace H (Negative) Urine Ketones Negative (Negative) Urine Blood 1+ H (Negative) Urine Nitrite Negative (Negative) Urine Bilirubin 1+ H (Negative) Urine Urobilinogen Negative (Negative) Ur Leukocyte Esterase 1+ H (Negative) Urine WBC (Auto) 10-30 H (0-5) /hpf Urine RBC (Auto) 0-4 (0-4) /hpf U Hyaline Cast (Auto) 5-10 H (0-5) /lpf U Epithel Cells (Auto) >30 H (0-5) /lpf Urine Bacteria (Auto) 1+ H (Negative) Granular Casts 5-10 H (0) /lpf Urine Yeast Not Reportable Nasal Screen MRSA (PCR) (Negative) 03/26/23 03/26/23 03/26/23 Range/Units 16:20 16:20 16:20 WBC 9.57 (4.8-10.8) K/ul RBC 3.48 L (4.20-5.40) M/uL Hgb 9.2 L (12.0-16.0) g/dl Hct 28.8 L (37.0-47.0) % MCV 82.8 (80.0-100.0) fL MCH 26.4 (25.0-34.0) pg MCHC 31.9 L (32.0-36.0) g/dL RDW Std Deviation 47.5 H (36.4-46.3) fL RDW Coeff of Kristin 15.7 H (11.5-14.5) % Plt Count 161 (130-400) K/uL MPV 10.7 (9.4-12.4) fL Immature Gran % (Auto) 0.3 % Neut % (Auto) 93.5 % Lymph % (Auto) 4.7 % Independence % (Auto) 1.4 % Eos % (Auto) 0.1 % Baso % (Auto) 0.0 % Neut # (Auto) 8.95 H (1.40-6.50) K/uL Lymph # (Auto) 0.45 L (1.20-3.40) K/uL Independence # (Auto) 0.13 (0.11-0.59) K/uL Eos # (Auto) 0.01 (0.00-0.50) K/uL Baso # (Auto) 0.00 (0.00-0.20) K/uL Immature Gran # (Auto) 0.03 (0.01-0.20) K/uL RBC Morphology Polychromasia 1+ Echinocytes 1+ Sodium 127 L (136-145) mmol/L Potassium 3.9 (3.5-5.1) mmol/L Chloride 96 L (98-107) mmol/L Carbon Dioxide 22 (21-32) mmol/L Anion Gap 9 (3-11) BUN 30 H (6-23) mg/dl Creatinine 1.01 (0.6-1.2) mg/dl Est Cr Clr Drug Dosing 65.4 ml/min Est GFR ( Amer) 70.1 ml/min Est GFR (Non-Af Amer) 60.5 ml/min BUN/Creatinine Ratio 29.7 H (10-20) Glucose 262 H (70-99(Fasting)) mg/dl Lactate (0.4-2.0) mmol/L Calcium 8.6 (8.6-10.3) mg/dl Phosphorus (2.5-4.9) mg/dl Magnesium 2.2 (1.7-2.4) mg/dl Total Bilirubin 0.9 (0.2-1.0) mg/dl Direct Bilirubin 0.3 H (0-0.2) mg/dl AST 246 H (13-39) U/L ALT 186 H (7-52) U/L Alkaline Phosphatase 285 H (34-104) U/L Total Protein 6.1 (6.0-8.3) gm/dl Albumin 3.7 (3.4-5.0) gm/dl Procalcitonin 0.54 H (0-0.5) ng/ml Urine Color Urine Appearance (Clear) Urine pH (4.5-7.5) Ur Specific Elmo (1.000-1.030) Urine Protein (Negative) Urine Glucose (UA) (Negative) Urine Ketones (Negative) Urine Blood (Negative) Urine Nitrite (Negative) Urine Bilirubin (Negative) Urine Urobilinogen (Negative) Ur Leukocyte Esterase (Negative) Urine WBC (Auto) (0-5) /hpf Urine RBC (Auto) (0-4) /hpf U Hyaline Cast (Auto) (0-5) /lpf U Epithel Cells (Auto) (0-5) /lpf Urine Bacteria (Auto) (Negative) Granular Casts (0) /lpf Urine Yeast Nasal Screen MRSA (PCR) (Negative) Diagnostic Findings CTAP: FINDINGS: Lung bases: Unremarkable. No mass. No consolidation. ABDOMEN: Liver: Unremarkable. No mass. Gallbladder and bile ducts: Mild air in the gallbladder. Pancreatic head mass measures approximately 4.7 x 4.4 cm, highly concerning for adenocarcinoma. Common bile duct stent. Pneumobilia. No calcified stones. Pancreas: Dilated main pancreatic duct. Spleen: Unremarkable. No splenomegaly. Adrenals: Unremarkable. No mass. Kidneys and ureters: Unremarkable. No solid mass. No hydronephrosis. Stomach and bowel: Mild wall thickening of the adjacent duodenum, concerning for duodenitis. Circumferential wall thickening of the ascending colon, correlate for mild colitis. No obstruction. PELVIS: Appendix: No findings to suggest acute appendicitis. Bladder: Unremarkable. No mass. Reproductive: IUD in the uterus. ABDOMEN and PELVIS: Intraperitoneal space: Unremarkable. No free air. No significant fluid collection. Bones/joints: No acute fracture. No dislocation. Soft tissues: Unremarkable. Vasculature: Unremarkable. No abdominal aortic aneurysm. Lymph nodes: Metastatic. Pain rated lymph nodes are present. IMPRESSION: 1. Mild wall thickening of the adjacent duodenum, concerning for duodenitis. 2. Metastatic. Pain rated lymph nodes are present. 3. Circumferential wall thickening of the ascending colon, correlate for mild colitis. 4. Pancreatic head mass measures approximately 4.7 x 4.4 cm, highly concerning for adenocarcinoma. Common bile duct stent. Pneumobilia. CXR: FINDINGS: A port catheter is seen. The cardiomediastinal silhouette is normal. The lungs are clear. No evidence of pleural effusion or pneumothorax. IMPRESSION: No acute abnormalities and in particular no radiographic evidence of pneumonia.
[2023-03-27] MEDS ORDERED: PEGFILGRASTIM 6 MG/0.6 ML SYR SQ ONE (11:15)
--- NOTE | 2023-03-27 14:37 | Hospitalist Progress Note ---
Date of Service March 27, 2023 Assessment & Plan (1) Hypotension: Plan: 62-year-old female with past medical significant for recently diagnosed pancreatic cancer and endometrial cancer, recent stroke with left-sided weakness(01/16), history of paroxysmal atrial flutter, SVT, anxiety, history of elevated troponin, who is currently getting chemo for pancreatic cancer had chemo last Thursday and and today she was getting her IV and chemo removed when she had chills and the staff could not get blood pressure and EMS was called. Possible sepsis History of pancreatic cancer on cycle 1 of FOLFIRINOX 03/24. Was in heme-onc office to have IV line taken off. She complained of chills and had on measurable blood pressure. Sent to the ED here Blood pressure of 150s on presentation. Lactic acid elevated. Urinalysis suggestive of infection. Continue on empiric Zosyn for now. We will follow-up on urine culture and blood culture. Patient has high risks of neutropenia. Her oncologist suggested her to receive Neulasta today. In formulary here; patient received Neulasta. Hyponatremia likely hypovolemic Sodium 127 on presentation Improved to 130 with IV hydration. Duodenitis Colitis CT abdomen/pelvis personally reviewed; mild wall thickening of adjacent duodenum concerning for duodenitis. Also concerning for mild colitis. Continue on Zosyn. Mild transaminitis On presentation, AST 246, ALT 186 Alkaline phos is 285 History of obstructing biliary stricture status post CBD stenting done on February 06, 2023. Transaminitis improving. GI on consult; hepatitis work-up sent. Endometrial cancer Recent diagnosis S/p IUD Follow-up with [facility] History of CVA Left-sided weakness Ambulatory dysfunction On Eliquis A flutter History of SVT Metoprolol succinate with holding parameters On Eliquis Anemia Hemoglobin 9.2 Required 3 units PRBC for bleeding after endometrial biopsy recently We will follow the labs DVT prophylaxis Eliquis Disposition telemetry floor Full code as per discussion with the patient and Time spent evaluating patient, direct bedside care, chart review, placing orders, interpretation of diagnostic studies, discussion with consultants, patient, and family members, as well as other required patient management activities is 60 minutes Please note the above document was generated using voice recognition software. It may contain grammatical, syntax or spelling errors. Any formal questions or concerns about the content, text or information contained within the body of this dictation should be directly addressed to the provider for clarification Admission and Anticipated Discharge Date Admission Date: March 26, 2023 Subjective Patient seen and examined at bedside. She is lying on the bed comfortably; not in distress. She denies fever, chills, chest pain or shortness of breath. Review of Systems Review of Systems: All systems reviewed & are unremarkable except as noted in Subjective Physical Exam Physical Exam: Constitutional: Alert orient x3; not in distress. Respiratory: Bilateral vesicular breath sound. Cardiovascular: RRR, no murmur, no edema Vessels: no JVD or carotid bruit Chest: normal inspection of chest Abdomen: normal bowel sounds, soft, nontender, no hepatosplenomegaly Musculoskeletal: no cyanosis or clubbing, extremities motor strength 5/5 Skin: no rashes, warm and dry normal turgor Neurologic: Awake alert oriented x3. Minimal left-sided weakness. Psychiatric: A+Ox3, euthymic affect Results & Data Results & Data Vital Signs (Past 12 Hours) Vital Signs Temp Pulse Pulse Resp BP Pulse Ox O2 Del Method 03/27/23 14:16 36.7 C 96 H 18 112/81 97 Room Air 03/27/23 11:00 74 18 120/84 96 Room Air 03/27/23 09:30 73 18 101/89 97 Room Air 03/27/23 07:07 85 03/27/23 04:20 93 H 21 116/69 96 Room Air 03/27/23 03:00 85 16 97 Room Air
[2023-03-27] MEDS ORDERED: traMADol HCL 50 MG TABLET PO PRN (19:36)
[2023-03-27] MEDS ORDERED: LORazepam 0.5 MG TAB PO STA (19:37)
[2023-03-27] MEDS ORDERED: DOCUSATE SODIUM/SENNA 50/8.6MG TAB PO STA (19:39)
[2023-03-27] MEDS: PROCHLORPERAZINE MALEATE 10 MG TAB PO PRN (19:43)
[2023-03-27] MEDS: PANTOprazole 40 MG TAB PO SCH (20:25)
--- NOTE | 2023-03-27 23:41 | Ultrasound Report ---
Exam(s): US ARTERIAL BILATERAL LOWER EXTREMITIES EXAM: US Duplex Bilateral Lower Extremities Arteries CLINICAL HISTORY: Reason for exam: purplish toes. TECHNIQUE: Real-time duplex ultrasound scan of the bilateral lower extremity arteries integrating B-mode two-dimensional vascular structure, Doppler spectral analysis and color flow Doppler imaging. COMPARISON: No relevant prior studies available. FINDINGS: RIGHT LOWER EXTREMITY: There is near-occlusive thrombus identified within the common femoral artery, proximal superficial femoral artery, as well as the popliteal artery. Monophasic waveforms are present in the right lower extremity arteries, consistent with inflow disease. Common femoral artery: 460 cm/s, monophasic. Deep femoral artery: 111 cm/s, monophasic. Proximal SFA: 605 cm/s, monophasic. Mid SFA: 56 cm/s, monophasic. Distal SFA: 30 cm/s, monophasic. Popliteal artery: 24 cm/s, monophasic. Posterior tibial artery: 19 cm/s, monophasic. Peroneal artery: Not visualized. Anterior tibial artery: 20 cm/s, monophasic. Dorsalis pedis artery: 7 cm/s, monophasic. Also noted is acute occlusive DVT within the right popliteal vein. LEFT LOWER EXTREMITY: There is near-occlusive thrombus identified within the common femoral artery, proximal superficial femoral artery, as well as the popliteal artery. Monophasic waveforms are present in the left lower extremity arteries, consistent with inflow disease. Common femoral artery: 95 cm/s, monophasic. Deep femoral artery: 180 cm/s, monophasic. Proximal SFA: 360 cm/s, monophasic. Mid SFA: 48 cm/s, monophasic. Distal SFA: 27 cm/s, monophasic. Popliteal artery: 63 cm/s, monophasic. Posterior tibial artery: 16 cm/s, monophasic. Anterior tibial artery: 22 cm/s, monophasic. Dorsalis pedis artery: 29 cm/s, monophasic. Also noted is acute occlusive DVT within the left popliteal vein IMPRESSION: RIGHT LOWER EXTREMITY 1. Near-occlusive thrombus within the common femoral artery, proximal SFA, and popliteal artery. 2. Elevated peak systolic velocity in the common femoral artery measuring 460 cm/s, suggesting a 75-99% stenosis. 3. Elevated peak systolic velocity in the proximal SFA measuring 605 cm/s, suggesting a 75-99% stenosis. 4. Monophasic waveforms throughout the right lower extremity arteries consistent with inflow disease. 5. Acute occlusive DVT within the right popliteal vein. LEFT LOWER EXTREMITY 1. Near-occlusive thrombus within the common femoral artery, proximal SFA, and popliteal artery. 2. Elevated peak systolic velocity in the proximal SFA measuring 360 cm/s suggesting a 50-74% stenosis. 3. Elevated peak systolic velocity in the deep femoral artery measuring 180 cm/s, suggesting a 30-49% stenosis. 4. Monophasic waveforms throughout the left lower extremity arteries consistent with inflow disease. 5. Acute occlusive DVT within the left popliteal vein. Communications: Call Doctor Other Electronically signed by: Catalina Lock M.D. 03/27/23 23:40 PM
[2023-03-28] MEDS ORDERED: HEPARIN SODIUM/DEXTROSE 25,000 UNITS/500 ML BAG IV SCH (00:45)
[2023-03-28] MEDS: PIPERACILLIN/TAZOBACTAM 4.5 GM in DEXTROSE 5% 100 ML IV SCH (05:55)
--- NOTE | 2023-03-28 07:16 | Communication Note ---
Date of Service: March 28, 2023 Last night was concerned about purplish toes . Pulses were heard at bedside Doppler. Patient denies any pain. Says she had some pain while walking but later could not elaborate. She was more concerned about her nausea. Arterial Us shows b/l near-occlusive thrombus identified within the common femoral artery, proximal superficial femoral artery, as well as the popliteal artery.Right Common femoral artery 75-99% stenosis. And also b/l popliteal occlusive DVT. Patient wanted to talk to her before any transfer. And she says he may not lift phone. Called and left voice mail. [facility] said they are not going to do surgery on pancreatic cancer patient and also has no beds. Called [facility] Thinks its mostly chronic as patient has no pain. Patient already on [facility] and [facility] agreed with changing to iv heparin. Also recommended to look for aorta with Ct scan and may need surgery later. Patient declined any iv heparin unless she talks with her though explained the risk of progression of clots.
[2023-03-28] MEDS: Heparin IV Adult Wt-Based Standard *NO* Bolus Protocol IV SCH ×3 (07:27→07:41)
[2023-03-28] MEDS ORDERED: ENOXAPARIN INJ 120 MG/0.8 ML SYR SC SCH (07:30)
[2023-03-28 07:52] LABS: Hematocrit (blood only) 26.8 % (37.0-47.0); Hemoglobin 8.8 g/dl (12.0-16.0); Mean Corpuscular Hemoglobin 26.7 pg (25.0-34.0); Mean Corpuscular Hgb Conc 32.8 g/dL (32.0-36.0); Mean Corpuscular Volume 81.2 fL (80.0-100.0); Mean Platelet Volume 10.8 fL (9.4-12.4); Platelet Count 113 K/uL (130-400); RDW Coefficient of Variation 15.6 % (11.5-14.5); RDW Standard Deviation 46.6 fL (36.4-46.3); White Blood Count 27.75 K/ul (4.8-10.8)
[2023-03-28 07:58] LABS: BUN Creatinine Ratio 17.1 (10-20); Calcium 8.5 mg/dl (8.6-10.3); Creatinine Clr Calc Pharmacy 83.1 ml/min; Est GFR (African American) 90.1 ml/min; Est GFR (Non-African American) 77.8 ml/min; Potassium 3.9 mmol/L (3.5-5.1)
[2023-03-28] MEDS ORDERED: ALPRAZolam 0.25 MG TABLET PO ONE (08:07)
[2023-03-28] MEDS: ATORVASTATIN 40 MG TAB PO SCH ×2 (08:22→11:34)
[2023-03-28] MEDS: ASPIRIN 81 MG ECTAB PO SCH ×2 (08:23→11:34)
[2023-03-28] MEDS: MEGESTROL ACETATE 40 MG TAB PO SCH (08:24)
[2023-03-28] MEDS: MIRTAZAPINE TAB 15 MG TAB PO SCH ×2 (08:24→11:34)
[2023-03-28] MEDS: PROCHLORPERAZINE MALEATE 10 MG TAB PO PRN (08:24)
[2023-03-28 09:31] LABS: Dohle Bodies 1+
[2023-03-28] MEDS ORDERED: IOVERSOL 350 MG 125mL Prefilled Syringe IV ONE (09:56)
[2023-03-28] MEDS ORDERED: HYDROmorphone INJ 0.5 MG/0.5 ML SYR IV STA (11:02)
--- NOTE | 2023-03-28 11:05 | CT Scan Report ---
DAMARIS ang ANNA yu noemí CLINICAL HISTORY: common femoral thrombus TECHNIQUE: TECHNIQUE: Multidetector row helical CT of the abdomen, pelvis and bilateral lower extremi ties down through the feet was performed, following intravenous administration of iodinated contrast. No oral contrast was administered. Automated dose lowering techniques and/or adjustment according to patient size were utilized for this exam. Coronal and sagittal reformations were obtained. MIP and 3 D volume rendered reconstructions were obtained. CT DOSE: 2481.59 mGy.cm Comparison: Comparison is made to CT abdomen pelvis 03/26/2023 FINDINGS: Lower chest: Partial visualization of a few pulmonary emboli involving the bilateral lower lungs. Liver: Unremarkable. No focal lesions are seen. Gallbladder and biliary tree: Prominent and thickened gallbladder is seen with surrounding pericholec ystic fluid. Common bile duct dilation is seen with a bile duct stent in place. Pancreas: 47 mm pancreatic head mass is again seen. Pancreatic duct is dilated. Spleen: Unremarkable. Adrenals: Unremarkable. Kidneys and ureters: Unremarkable. Bladder: Limited evaluation due to underdistention. Reproductive organs: Intrauterine device is noted. Bowel: Diverticulosis is seen without evidence of diverticulitis. A small amount of esophageal reflux is seen. Lymph nodes Retroperitoneal: Yves hepatis nodes measure up to 13 mm in diameter. Prominent retroperitoneal lymph nodes are seen. Pelvic: Unremarkable. Mesenteric: Mesenteric lymph nodes measure up to 11 mm in diameter. Peritoneum: Stranding is noted in the peritoneum. Abdominal wall: A fat-containing umbilical hernia is seen. Bones: Degenerative changes in the visualized spine. CT angiogram: The abdominal aortic contours appear intact without evidence of aneurysmal dilatation a nd/or dissection. Scattered atherosclerotic calcifications of the abdominal aorta and its major bran ches. The origins of the celiac axis, superior mesenteric, inferior mesenteric and bilateral renal arteries are patent. The right common iliac artery is patent. The right internal iliac artery is patent. The right exter nal iliac artery is patent. The right common femoral artery demonstrates near-complete occlusion. Th e right deep femoral artery is occluded near the origin with distal reconstitution. The right superfi cial femoral artery is nearly occluded at the origin with distal reconstitution. The right popliteal artery is completely occluded. There is distal reconstitution of 3 vessel anatomy although the perone al artery is not well seen at the level of the ankle. Two-vessel is identified down to the level of t he right foot. The left common iliac artery contains hemodynamically significant stenosis in the distal portion. The left internal iliac artery is occluded near the origin with distal reconstitution. The left external iliac artery is hemodynamically significantly occluded at the origin. The left common femoral artery is patent. The left deep femoral artery demonstrates hemodynamically significant stenosis near the origin. The left superficial femoral artery demonstrates near-total occlusion near the origin. The le ft popliteal artery is completely occluded. There is distal reconstitution of three-vessel runoff to the ankle. IMPRESSION: 1. Extensive multifocal thrombus in the bilateral iliac, femoral, and popliteal arteries. 2. Partial visualization of pulmonary emboli. 3. Redemonstration of pancreatic mass, lymphadenopathy, and biliary and pancreatic obstruction. Prom inence of the gallbladder is likely secondary. 4. Additional findings as above. ACT 112: Negative or not required by law. Electronically signed by: Janak Joy M.D. 03/28/2023 11:02 AM
[2023-03-28] MEDS ORDERED: HYDROmorphone INJ 0.5 MG/0.5 ML SYR ONE (11:06)
[2023-03-28] MEDS: METOPROLOL SUCC 25MG EXT REL TAB PO SCH (11:09)
[2023-03-28] MEDS: FAMOTIDINE 20 MG in SYRINGE 3 ML IV SCH (11:34)
[2023-03-28 11:43] LABS: ALC (manual) 0.83 K/uL (1.2-3.4); ANC (manual) 26.64 K/uL (1.4-6.5); Lymphocytes # (manual) 0.83 K/uL (1.2-3.4); Lymphocytes % (manual) 3 %; Monocytes # (manual) 0.28 K/uL (0.11-0.59); Monocytes % (manual) 1 %; Neutrophils # (manual) 26.64 K/uL (1.40-6.50); Neutrophils % (manual) 96 %
--- NOTE | 2023-03-28 12:02 | Discharge Summary ---
Date of Service March 28, 2023 Admission HPI Per Admitting Provider 62-year-old female with past medical significant for recently diagnosed pancreatic cancer and endometrial cancer, recent stroke with left-sided weakness(01/16), history of paroxysmal atrial flutter, SVT, anxiety, history of elevated troponin, who is currently getting chemo for pancreatic cancer had chemo last Thursday and and today she was getting her IV and chemo removed when she had chills and the staff could not get blood pressure and EMS was called. During the episode she has not had any symptoms as per the patient. Patient and think she is dehydrated. Currently vitals are stable. Denies any fev ers. No cough. No nausea or vomiting. Somewhat constipated. Normal bladder movements. Appetite is down. No dysphagia. No headache. No blurred visions. Has some runny nose. No sore throat. Currently afebrile. Currently no abdominal pain. Resting comfortably and hemodynamically stable. Patient has some confusion with the right and left side since stroke. Ambulates with a walker Past medical history as mentioned above Past surgical history colonoscopy, ligation of oviducts, appendectomy Social history . No smoking. Alcohol occasional. No drug use. Family history paternal grandmother had breast cancer. Mother has hyperlipidemia, osteoporosis. Father had prostate cancer. Brother has diabetes heart attack and stroke. Admission Exam Per Admitting Provider General-Not in distress. Head- atraumatic Eyes- PERRL, EOMI, ENT- oropharynx clear Neck- supple, no JVD, no adenopathy carotids +2/2, no bruits appreciated Lungs- clear to auscultation no wheezing or crackles. Heart- regular rate and rhythm; no murmur, no gallop. Abdomen- normal bowel sounds, soft, nontender, no distension. Extremities-mild pretibial edema, no erythema seen. Neuro- alert, oriented x 3; PERRL, EOMI; no facial palsy; no dysarthria; obeys commands moves extremities. Skin- warm & dry Principal Diagnosis Acute on chronic limb ischemia Hyponatremia Pancreatic cancer on chemotherapy Discharge Exam Constitutional: Awake, alert oriented x3; labile affect. Respiratory: Bilateral vesicular breath sound. Cardiovascular: RRR, no murmur, no edema Vessels: no JVD or carotid bruit Chest: normal inspection of chest Abdomen: normal bowel sounds, soft, nontender, no hepatosplenomegaly Musculoskeletal: no cyanosis or clubbing, extremities motor strength 5/5. Bluish discoloration of toes of bilateral lower legs. Dopplerable dorsalis pedis on left leg, not able to appreciated in right leg Skin: no rashes, warm and dry normal turgor Neurologic: Awake alert oriented x3. Minimal left-sided weakness. Psychiatric: A+Ox3, emotional. Discharge Data Allergies Allergy/AdvReac Type Severity Reaction Status Date / Time No Known Allergies Allergy Verified 02/06/23 10:40 Consultations 03/26/23 19:07 ED Decision to Admit Stat 03/27/23 08:00 Consult Gastroenterology Routine 03/28/23 11:46 Burn CD for patient Routine Ordered Studies 03/26/23 19:04 CT abd pelvis IV con only Stat 03/27/23 20:31 US arterial duplex LE BI Urgent 03/28/23 08:40 CTA abd aorta runof w con [CT ang AA runof w inc wo ifdon] Stat Hospital Course (1) Hypotension: 62-year-old female with past medical significant for recently diagnosed pancreatic cancer(received cycle 1 of FOLFIRINOX 03/24) and endometrial cancer, recent stroke with left-sided weakness(01/16), history of paroxysmal atrial flutte on Eliquis, was sent from hematology clinic after her blood pressure was not able to be measured. On presentation to the ED, patient was normotensive, saturating well on room air. CT abdomen and pelvis was done on admission which showed mild wall thickening of adjacent duodenum concerning for duodenitis, circumferential wall thickening of ascending colon and pancreatic head mass of 4.7 X 4.4 cm. She was placed on empiric Zosyn and was admitted to medical floor for further treatment. She received Neulasta on 03/27/2023 as recommended by Hemato-oncology. Patient was also hyponatremic with sodium of 127 on admission; improved to 130 with IV hydration. On the night of March 27, patient's noticed bluish discoloration of her toes in bilateral lower extremities. Patient also reported pain on walking. Stat arterial Doppler showed near occlusive thrombus within the common femoral artery, proximal SFA and popliteal artery. Also found to have occlusive DVT in the left popliteal vein. Aorta with runoff showed extensive multifocal thrombus in bilateral iliac, femoral and popliteal arteries, partial visualization of PE. Patient was started on Lovenox therapeutic dose. Last dose given was 03/28/2023 at 8:30 AM. Her Eliquis dose was on 03/27/2023 at 8:30 pm. Imaging were discussed with vascular surgeon ( ): Likely acute on chron ic limb ischemia. Vascular surgery not available till Thursday in the hospital. Discussion was done with vascular surgery from [facility]; concern for acute on chronic limb ischemia. Imaging sent over for further review. Patient was accepted by hospitalist (Dr. Khoury) at [facility] Patient to be transferred by [facility]. Please note the above document was generated using voice recognition software. It may contain grammatical, syntax or spelling errors. Any formal questions or concerns about the content, text or information contained within the body of this dictation should be directly addressed to the provider for clarification Total Time Total Time Spent Total Time Spent (In Minutes): 90 Total Time Includes: Examination of the Patient, Discharge Planning, Medication Reconciliation, Communication With Other Providers and Other Discharge Plan Discharge Items Patient Disposition: Transfer Acute Care Hospital Reason For Visit: HYPOTENSION Discharge Diagnosis: Pancreatic cancer Acute on chronic limb ischemia Activity: Resume your previous activity Non-emergency contact: Primary Care Provider Call non-emergency contact if: you have any medication questions and your symptoms worsen Follow-up/Referrals: Vanesa Solorzano DO [Primary Care Provider] - Diet: Regular Addtl Attending Provider Instructions: 62-year-old female with past medical significant for recently diagnosed pancreatic cancer(received cycle 1 of FOLFIRINOX 03/24) and endometrial cancer, recent stroke with left-sided weakness(01/16), history of paroxysmal atrial flutte on Eliquis, was sent from hematology clinic after her blood pressure was not able to be measured. On presentation to the ED, patient was normotensive, saturating well on room air. CT abdomen and pelvis was done on admission which showed mild wall thickening of adjacent duodenum concerning for duodenitis, circumferential wall thickening of ascending colon and pancreatic head mass of 4.7 X 4.4 cm. She was placed on empiric Zosyn and was admitted to medical floor for further treatment. She received Neulasta on 03/27/2023 as recommended by Hemato-oncology. Patient was also hyponatremic with sodium of 127 on admission; improved to 130 with IV hydration. On the night of March 27, patient's noticed bluish discoloration of her toes in bilateral lower extremities. Patient also reported pain on walking. Stat arterial Doppler showed near occlusive thrombus within the common femoral artery, proximal SFA and popliteal artery. Also found to have occlusive DVT in the left popliteal vein. Aorta with runoff showed extensive multifocal thrombus in bilateral iliac, femoral and popliteal arteries, partial visualization of PE. Patient was started on Lovenox therapeutic dose. Last dose given was 03/28/2023 at 8:30 AM. Her Eliquis dose was on 03/27/2023 at 8:30 pm. Imaging were discussed with vascular surgeon ( ): Likely acute on chronic limb ischemia. Vascular surgery not available till Thursday in the hospital. Discussion was done with vascular surgery from [facility]; concern for acute on chronic limb ischemia. Imaging sent over for further review. Patient was accepted by hospitalist (Dr. Khoury) at [facility] Patient was transferred by [facility]. Add Altitude Chamber Technician Provider Instructions: Date of Service: March 28, 2023 Current Inpatient Medications Aspirin (Aspirin 81 Mg Ectab) 81 mg PO DAILY RAMON Stop: 04/27/23 08:59 Last Admin: 03/28/23 11:34 Dose: Not Given Atorvastatin Calcium (Atorvastatin 40 Mg Tab) 40 mg PO QAM RAMON Stop: 04/27/23 08:59 Last Admin: 03/28/23 11:34 Dose: Not Given Enoxaparin Sodium (Enoxaparin Inj 120 Mg/0.8 Ml Syr) 111 mg SC Q12 RAMON Stop: 04/27/23 07:29 Last Admin: 03/28/23 08:23 Dose: 111 mg Piperacillin Sod/Tazobactam (Sod 4.5 gm/ Dextrose) 120 mls @ 30 mls/hr IV Q8H PENDING SALE TO [facility]; Protocol Stop: 04/06/23 05:59 Last Admin: 03/28/23 05:55 Dose: Not Given Famotidine 20 mg/ Syringe 5 mls @ 2.5 mls/min IV BID RAMON Stop: 04/26/23 08:59 Last Admin: 03/28/23 11:34 Dose: Not Given Megestrol Acetate (Megestrol Acetate 40 Mg Tab) 20 mg PO BID RAMON Stop: 04/26/23 08:59 Last Admin: 03/28/23 08:24 Dose: 20 mg Metoprolol Succinate (Metoprolol Succ 25mg Ext Rel Tab) 25 mg PO BID RAMON Stop: 04/26/23 08:59 Last Admin: 03/28/23 11:09 Dose: Not Given Mirtazapine (Mirtazapine Tab 15 Mg Tab) 30 mg PO DAILY RAMON Stop: 04/26/23 08:59 Last Admin: 03/28/23 11:34 Dose: Not Given Nitroglycerin (Nitroglycerin Sl 0.4 Mg/Tab Tab) 0.4 mg SL Q5M PRN PRN Reason: Chest Pain Stop: 04/25/23 21:51 Oxycodone HCl (Oxycodone Hcl Ir 5 Mg Tab (Immediate Release)) 5 mg PO Q8H PRN PRN Reason: pain Stop: 04/09/23 21:51 Pantoprazole Sodium (Pantoprazole 40 Mg Tab) 40 mg PO HS RAMON Stop: 04/25/23 21:51 Last Admin: 03/27/23 20:25 Dose: 40 mg Polyethylene Glycol (Polyethylene (Miralax) 17 Gm Pack) 17 gm PO DAILY PRN PRN Reason: Constipation Stop: 04/25/23 21:51 Prochlorperazine (Prochlorperazine Maleate 10 Mg Tab) 10 mg PO Q6H PRN PRN Reason: Nausea Stop: 04/25/23 21:51 Last Admin: 03/28/23 08:24 Dose: 10 mg Tramadol HCl (Tramadol Hcl 50 Mg Tablet) 25 mg PO Q4H PRN PRN Reason: Pain Stop: 04/26/23 19:35 Last Admin: 03/27/23 20:28 Dose: 25 mg Pending Studies at Discharge: No Stand-Alone Forms: [facility] Skilled Items Patient informed of condition?: Yes DNR: No Discharge Level of Care: Other Communicable Disease: No Discharge Prognosis: Deteriorating Lines: Peripheral IV Urinary Catheter: No Medications and DC Order Prescriptions: Continued Eliquis 5 mg Tablet 5 mg PO BID Hold Instructions: Hold for 3 days as instructed megestrol 20 mg tablet 20 mg PO BID Qty: 60 0RF oxycodone 5 mg Tablet 5 mg PO Q8H PRN (Reason: pain) Qty: 12 0RF metoprolol succinate 25 mg tablet extended release 24 hr 25 mg PO BID Qty: 60 1RF nitroglycerin 0.3 mg Tablet, Sublingual 0 mg sublingual UD Rx Instructions: 02/03/23-[facility] pharmacist couldn't verify Place 1 tab under the tongue as needed for chest pain, ondansetron HCl 8 mg tablet 8 mg PO Q8H PRN (Reason: Nausea) prochlorperazine maleate 10 mg tablet 10 mg PO Q6H PRN (Reason: Nausea) acetaminophen 500 mg tablet 500 mg PO TID Rx Instructions: per , they give her one tab in the am, afternoon and pm mirtazapine 30 mg tablet 30 mg PO DAILY esomeprazole magnesium [Nexium] 40 mg Capsule,Delayed Release(Dr/Ec) 40 mg PO HS loratadine 10 mg tablet 10 mg PO DIRECTED Rx Instructions: Used during chemo Discharge Orders: Discharge Order (Routine); Ordered 03/28/23 Ordered By: Tera Byrne Admission Data Admit Date/Time: 03/26/23 21:04 Attending Provider: Tera Byrne Admit Provider: Heron Gillette Primary Care Provider: Vanesa Solorzano Other Providers: Heron Gillette ; Lawanda Parish ; Israel Valentino ; Elissa King ; Christi Sanabria ; Ayana Driver ; Socorro Alaniz ; Kranthi Montilla ; Paul Velez ; Odilia Ring ; Carolina Fields ; You Gregory ; Yazmin Mast ; Jessie Serrato ; Amberly Turner ; Cadence Reid ; Inez Mejia ; Wilmar Malik ; Padilla Gregory ; Randa Odonnell ; Gunner Alexis Jr ; Yeni Negrete I.
--- NOTE | 2023-03-28 13:27 | Cardiology Consultation ---
Date of Consultation March 28, 2023 Assessment & Plan (1) Aortic valve vegetation: (2) Pancreatic adenocarcinoma: -Due to the development of symptomatic arterial insufficiency of the bilateral lower extremities, decision had already been made to transfer the patient by air to a tertiary center, [facility], and Dr. Byrne had discussed the case with vascular surgery there. -A bedside echocardiogram was performed just prior to transfer revealing a large mobile echodensity on the ventricular aspect of the aortic valve that prolapses into the left ventricular outflow tract, and is 1.2 x 1 cm in diameter. The left ventricular ejection fraction was normal. No other valvular abnormalities were noted with the exception of mild mitral annular calcification which had been present at the time of the previous work-up in December,. When the images of the transthoracic echocardiogram study were reviewed today in comparison to the transesophageal echocardiogram performed 01/08/2023 interval development of the mass adherent to the aortic valve is noted. Differential diagnosis certainly includes bacterial endocarditis given the patient's immunocompromise state from her chemotherapy, and she does have an indwelling port for chemotherapy. Also in the differential however is nonbacterial thrombotic endocarditis related to her adenocarcinoma. This typically presents with embolic phenomenon. It is noted that the patient had already been on systemic anticoagulation with Eliquis. In the setting of infectious endocarditis, anticoagulation is generally contraindicated due to the risk of mycotic embolism to the brain with risk of hemorrhagic transformation. Anticoagulation however is the mainstay for nonbacterial thrombotic endocarditis. Prior to transfer, the patient's anticoagulation had been transitioned to subcutaneous Lovenox. Given CT findings suggestive of pulmonary embolism, it would be suspected the patient has both right-sided and left-sided vegetation but does not visualized on the right side on the current study. The interatrial septum had once again been noted to have been intact at the time of the transesophageal echocardiogram in December,. Recommend ongoing follow-up with the patient's blood cultures, and as well as empiric antibiotics for for now. A disc with the transthoracic echocardiogram images was provided to the flight crew as well as a printed report of the echocardiogram. I provided a verbal update to the flight crew with regards to the new development of the echocardiogram results. I also communicated the results to the patient's mother and . Dr Byrne reached out to the accepting team at [facility] to communicate the developments. History of Present Illness Attending Physician: Tera Byrne MD History of Present Illness Mrs Spivey is a 62 year old female seen in cardiology consultation for advice regarding abnormal findings on an echocardiogram. Patient been followed by the undersigned during her admission in December, when she had presented with acute left-sided weakness with findings of a large right temporal and parietal lobe stroke. Work-up at that time included a transthoracic and trans esophageal echocardiogram with no cardiac source of embolism identified. The interatrial septum was intact. Ejection fraction was normal. No valvular vegetations noted. Brief episodes of narrow complex tachycardia had been observed on telemetry consistent with paroxysmal atrial flutter and therefore anticoagulation with Eliquis 5 mg twice daily had been recommended at that time. Since discharge, she had been evaluated for both an endometrial mass and pancreatic mass and had been found to have adenocarcinoma of the pancreas. She has an indwelling right-sided port from which she has been receiving her chemotherapy. Yesterday she was receiving chemotherapy at the outpatient infusion center and she had subjective chills and the staff could not get an adequate blood pressure. She subsequently presented to the hospital for further assessment. Although her white blood cell count was normal on presentation, at 9.3, it increased to 27.75 this morning. She was found to have a mild elevation in her transaminases. Blood cultures were drawn on admission and are negative thus far. She had no fever overnight last night, but several low temperatures with lowest of 36.2 C. Due to bilateral lower extremity pain she underwent a lower extremity arterial duplex and then CT angiogram of the lower extremities with runoff with findings of extensive multifocal thrombus in the bilateral iliac, femoral, and popliteal arteries. CT report from radiology also describes partially visualized pulmonary emboli. Redemonstration of a pancreatic mass and lymphadenopathy also noted. Allergies Allergy/AdvReac Type Severity Reaction Status Date / Time No Known Allergies Allergy Verified 02/06/23 10:40 Home Medications Medication Instructions Recorded Confirmed Type nitroglycerin 0.3 mg sublingual 0 mg sublingual UD 01/02/23 03/26/23 History tablet apixaban 5 mg tablet (Eliquis) 5 mg PO BID 01/30/23 03/26/23 History megestrol 20 mg tablet 20 mg PO BID #60 tabs 02/09/23 03/26/23 Rx oxycodone 5 mg tablet 5 mg PO Q8H PRN pain #12 tabs 02/09/23 03/26/23 Rx metoprolol succinate 25 mg 25 mg PO BID #60 tabs 02/10/23 03/26/23 Rx tablet,extended release 24 hr acetaminophen 500 mg tablet 500 mg PO TID 03/26/23 03/26/23 History esomeprazole magnesium 40 mg 40 mg PO HS 03/26/23 03/26/23 History capsule,delayed release (Nexium) loratadine 10 mg tablet 10 mg PO DIRECTED 03/26/23 03/26/23 History mirtazapine 30 mg tablet 30 mg PO DAILY 03/26/23 03/26/23 History ondansetron HCl 8 mg tablet 8 mg PO Q8H PRN Nausea 03/26/23 03/26/23 History prochlorperazine maleate 10 mg 10 mg PO Q6H PRN Nausea 03/26/23 03/26/23 History tablet Patient History Medical History Anxiety CVA (cerebral vascular accident) 01/02/23 treated at [facility] - left sided deficits; will follow w/ [facility] neuro (06/2023 soonest appointment) GERD (gastroesophageal reflux disease) History of transesophageal echocardiography ([facility]) HLD (hyperlipidemia) HTN (hypertension) does not follow w/ cardio, has an appointment scheduled to see [facility] cardio 02/19/2023 Hx of mammogram Hx of rheumatic fever childhood Mass of pancreas Obesity, morbid, BMI 40.0-49.9 Paroxysmal atrial flutter Poor historian SVT (supraventricular tachycardia) Surgical History History of esophagogastroduodenoscopy (EGD) Hx of appendectomy Hx of colonoscopy Family History Father , age 64 prostate cancer Prostate cancer Grandmother (Paternal) Cancer Breast cancer Social History Smoking Status: Never smoker Second Hand Exposure: No; Do You Dip or Chew Tobacco: No; Hx Alcohol Use: No Hx Substance Use: No Preferred Language: Slovak Communication Ability: Effective Rnfa Required: No Beliefs That Will Affect Care: None Current Living Situation: Spouse current occupational status: employed 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 I had a brief conversation with her and she described feeling nauseous. She was receiving antiemetic medication at that time. No physical exam could be performed. Results & Data Vital Signs (Past 12 Hours) Vital Signs Temp Pulse Pulse Pulse Resp BP BP 03/28/23 12:11 85/50 L 03/28/23 08:00 74 03/28/23 08:35 37.1 C 93 H 20 152/78 H 03/28/23 03:58 36.3 C L 79 20 127/74 Pulse Ox O2 Del Method 03/28/23 12:11 03/28/23 08:00 03/28/23 08:35 99 Room Air 03/28/23 03:58 94 Room Air Laboratory Results CBC 03/28/23 Range/Units 07:20 WBC 27.75 H (4.8-10.8) K/ul RBC 3.30 L (4.20-5.40) M/uL Hgb 8.8 L (12.0-16.0) g/dl Hct 26.8 L (37.0-47.0) % Plt Count 113 L (130-400) K/uL Comprehensive Metabolic Panel 03/28/23 Range/Units 07:20 Sodium 132 L (136-145) mmol/L Potassium 3.9 (3.5-5.1) mmol/L Chloride 103 (98-107) mmol/L Carbon Dioxide 22 (21-32) mmol/L BUN 14 (6-23) mg/dl Creatinine 0.82 (0.6-1.2) mg/dl Glucose 237 H (70-99(Fasting)) mg/dl Calcium 8.5 L (8.6-10.3) mg/dl Intake and Output 03/27/23 03/28/23 03/28/23 22:59 06:59 14:59 Intake Total 534 / 1932.333 320 / 1932.333 Balance 534 / 1932.333 320 / 1932.333 Intake: IV 534 / 1732.333 120 / 1732.333 Piperacillin/Tazobactam 4.5 gm 120 / 360 120 / 360 In Dextrose 5% 100 ml @ 30 mls/ hr IV Q8H RAMON Rx#:[id number] Sodium Chloride 0.9% 1000ML 1, 414 / 1372.333 000 ml @ 125 mls/hr IV .Q8H RAMON Rx#:[id number] Oral 200 / 200 Other: Other Intake Source sips # Unmeasured Voids 1 # Emeses 3 Weight 105.3 kg 105.3 kg Weight Measurement Method Built in [facility] Patient Weight 03/29/23 06:59 Weight 105.3 kg Diagnostic Findings EKG performed 03/26/2023 at 1608 interpret independently: Normal sinus rhythm at 74 bpm, nonspecific diffuse T wave flattening.
[2023-03-28 15:27] LABS: HBSAG NON-REACTIVE (NON-REACTIVE); Hepatitis A Antibody IgM NON-REACTIVE (NON-REACTIVE); Hepatitis B Core Antibody IgM NON-REACTIVE (NON-REACTIVE)
--- NOTE | 2023-03-30 15:18 | Electrocardiogram Report ---
Test Reason : Blood Pressure : / mmHG Vent. Rate : 074 BPM Atrial Rate : 074 BPM P-R Int : 132 ms QRS Dur : 080 ms QT Int : 400 ms P-R-T Axes : 027 026 151 degrees QTc Int : 444 ms Normal sinus rhythm Nonspecific ST and T wave abnormality Abnormal ECG When compared with ECG of 08-FEB-2023 13:13, No significant change was found Confirmed by Rolando Medrano ([id number]) on 03/30/2023 3:18:07 PM Referred By: Maxwell Galvin Confirmed By:Rolando Medrano
--- OUTSIDE RECORDS SUMMARY | 2023-04-06 06:16 | External Medical Summary | Summary of Care ---
Author Name Unknown Organization [facility] Address [address] [place] [address] Phone [phone] Care Team Providers Care Curriculum Writer Name Role Phone Vanesa Solorzano Primary Care Provider [phone] Reason for Visit * Reason Onset Date Comments Advice 03/24/2023 Port dressing Encounter Details Date Type Department Care Team Description 03/24/2023 Telephone Hematology/Oncology [facility] [address] [place] [address] Crescencio Rosales MD [address] [place] [address] Advice (Port dressing) Allergies No known active allergiesdocumented as of this encounter (statuses as of 03/24/2023) Medications Medication Sig Dispensed Refills Start Date End Date Status Nitroglycerin 0.3 MG Sublingual Tablet Sublingual (NITROSTAT)Indicati ons:Chest pain, unspecified type Place 1 Tab under the tongue as needed for Pain, Chest. May repeat 3 times. If chest pain continues, call 911. 72 Tab 11 05/31/2020 Active Pantoprazole Sodium 40 MG Oral Tablet Delayed Release (Protonix) Take 1 Tablet by mouth in the morning. 0 Active Apixaban 5 MG Oral Tablet (Eliquis)Indication s:Acute CVA (cerebrovascular accident) (HCC),Paroxysmal atrial flutter (HCC) Take 1 Tablet by mouth in the morning and 1 Tablet before bedtime. 60 Tablet 11 01/26/2023 Active Prochlorperazine Maleate 10 MG Oral Tablet (Compazine)Indicati ons: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 30 Tablet 0 03/02/2023 Active Ondansetron HCl 8 MG Oral TabletIndications:M alignant neoplasm of head of pancreas (HCC) Take 1 Tablet by mouth every 8 hours as needed for Nausea. 30 Tablet 0 03/02/2023 Active Lidocaine-Prilocain e 2.5-2.5 % External Cream (Emla)Indications:M alignant neoplasm of head of pancreas (HCC) APPLY TO SKIN OVER MEDIPORT & COVER 1HR PRIOR TO ACCESSING. 30 g 1 03/03/2023 Active Loratadine 10 MG Oral Tablet (Claritin)Indicatio ns:Malignant neoplasm of head of pancreas (HCC) Take 1 tablets for 5 days each chemo cycle, starting the day BEFORE udenyca injection 60 Tablet 0 03/03/2023 Active oxyCODONE-Acetamino phen 5-325 MG Oral Tablet (Percocet)Indicatio ns:Malignant neoplasm of head of pancreas (HCC) Take 1 Tablet by mouth every 4 hours as needed for Pain, Severe. 15 Tablet 0 03/04/2023 Active Additional Information Patient not taking.Reported on 03/13/2023 Mirtazapine 15 MG Oral Tablet (Remeron)Indication s:Anxiety disorder due to medical condition Take 1 Tablet by mouth at bedtime. 30 Tablet 0 03/04/2023 Active busPIRone HCl 10 MG Oral Tablet (Buspar)Indications :Anxiety disorder due to medical condition Take 1 Tablet by mouth 3 times a day as needed (Anxiety). 90 Tablet 0 03/04/2023 Active Metoprolol Succinate ER 25 MG Oral Tablet Extended Release 24 Hour (toPROL XL) Take 1 Tablet by mouth in the morning and 1 Tablet before bedtime. 60 Tablet 1 03/05/2023 Active Megestrol Acetate 20 MG Oral Tablet (Megace) Take 1 Tablet by mouth in the morning and 1 Tablet before bedtime. 60 Tablet 1 03/05/2023 Active Acetaminophen 500 MG Oral Tablet (Tylenol Extra Strength)Indication s:Malignant neoplasm of head of pancreas (HCC) Take 2 Tablets by mouth in the morning and 2 Tablets at noon and 2 Tablets in the evening. 120 Tablet 0 03/06/2023 Active Simethicone 125 MG Oral CapsuleIndications: Malignant neoplasm of head of pancreas (HCC) Take 1 Capsule by mouth 3 times a day as needed (Gas). 90 Capsule 3 03/06/2023 Active documented as of this encounter (statuses as of 03/24/2023) Active Problems Problem Noted Date Encounter for antineoplastic chemotherap y 02/18/2023 Pancreatic cancer 02/13/2023 Endometrial cancer 02/04/2023 Acute CVA (cerebrovascular accident) 09/2022 Anxiety 01/26/2023 Elevated troponin 01/26/2023 Genetic carrier status 01/26/2023 Intermittent abdominal pain 01/26/2023 Paroxysmal atrial flutter 01/26/2023 SVT (supraventricular tachycardia) 01/26 Weakness 01/26/2023 Acute left hemiparesis 01/26/2023 Obesity, morbid, BMI 40.0-49.9 9 Overview: Per Obesity protocol documented as of this encounter (statuses as of 03/24/2023) Resolved Problems Problem Noted Date Resolved Date Obesity, morbid (more than 1 00 lbs over ideal weight or BMI > 40) 01/08/2010 04/08/2019 Overview: Per Obesity Protocol, #19 ICD-10 update of inactive term Dyslipidemia, goal LDL below 100 09/15/2014 Obesity 04/08/2019 Overview: Per Obesity protocol documented as of this encounter (statuses as of 03/24/2023) Immunizations Name Administration Dates Next Due COVID-19 mRNA, LNP-s, No Pre serve, 2-Dose Series (ClearFit) 10/16/2020,09/25/2020 Seasonal Influenza, PF, 6 mo ns & Above, IM , (Flulaval) 05/31/2020,08/06/2018 Seasonal Influenza, Split, IIV3, With Preserve, Inj 05/04/2013 TDAP (age 10 and older)(Boostrix) 05/04/2013 documented as of this encounter Social History Tobacco Use Types Packs/Day Years Used Date Smoking Tobacco: Never Smokeless Tobacco: Never Alcohol Use Standard Drinks/Week Comments Yes 0 (1 standard drink = 0.6 oz pur e alcohol) Occasionally Sex Assigned at Date Recorded Female 01/30/2023 8:46 AM E DT Job Start Date Occupation Industry Not on file Not on file Not on file documented as of this encounter Miscellaneous Notes * Telephone Encounter - Gail Lock RN - 03/24/2023 3:40 PM EDT Returned call to pt's son, Ravi. Ravi stated that CVAD dressing appeared loose along the bottom edge of the dressing. Ravi confirmed needle is still in place/intact; site is clean and dry. Reinforced importance of site remaining covered with an intact dressing to reduce risk of infection and prevent di slodgement of garcia needle; Ravi verbalized understanding. Ravi stated he will go to buy medical tapeat [facility]. Advised that Ravi reinforce all edges of tegaderm dressing with tape, and to contact [facility] if dressing or needle is compromised in any way. * Telephone Encounter - ROMANA Moore - 03/24/2023 3:03 PM EDT Patient's son states that the patient had treatment today. Patient's son states that the plastic covering that is on top of the patient's port site seems loose.Patient's son would like to know if theplastic covering should be taped on or what would be recommended. documented in this encounter Plan of Treatment Upcoming Encounters Date Type Specialty Care Team Description 03/25/2023 Office Visit Palliative Medicine Mercedes Aranda MD [address] [place] [phone] 03/26/2023 Immunization/Injection Hematology Oncolog y Nurse, Med 4 [address] [facility] [place] [address] 03/27/2023 Immunization/Injection Hematology Oncolog y Nurse, Med [address] [place] [address] 04/06/2023 Laboratory Laboratory Lisandra, Lab Scenery [address] [facility] [place] [address] 04/07/2023 Hem/Onc Treatment Hematology Oncology [place], Chair 1 Hem Onc Scenery [address] [place] [id number] 04/17/2023 Imaging Radiology 04/29/2023 Office Visit Family Medicine Vanesa Solorzano, DO [address] [place] [address] 04/29/2023 Office Visit Gastroenterology Amberly Turner CRNP [address] [place] [id number] 05/26/2023 Office Visit Gynecology Oncology Brayan Olguin PA-C [address] [place] [address] 06/16/2023 Office Visit Neurology Greer Davis PA-C [address] [facility] [facility] [place], [place] [phone] Health Maintenance Due Date Last Done Comments Pneumococcal Vaccine: Pediatrics (0 to 5 Years) and At-Risk Patients (6 to 64 Years) (1 - PCV) 1968 HIV Screening 1977 Hepatitis C Screening 1980 Zoster Vaccines (1 of 2) 1981 Cologuard 2007 Sigmoidoscopy 2007 Fecal Occult Blood Test 09/26/2017 09/27/19 17, 09/19/2015, 09/09/2013, Additional history exists COVID-19 Vaccine (3 - Pfizer risk series) 11/13/2020 10/16/2020, 09/25/2020 Depression Screening, Annual for Pts 12 and Over 05/31/2021 05/31/2020 Mammogram 06/25/2021 06/25/2020, 03/27, 09/27/2018, Additional history exists Hepatitis B (1 of 3 - Risk 3-dose series) 2022 Influenza Vaccine (FLU shot) (#1) 2023 05/31/2020, 08/06/2018, 05/04/2013 DTaP,Tdap,and Td Vaccines (2 - Td or Tdap) 05/04/2023 05/04/2013, 09/12/2003 Colonoscopy 03/09/2024 03/09/2014, 02/24, 11/15/2013, Additional history exists Colorectal Cancer Screening 03/09/2024 Pap Smear 01/30/2026 01/30/2023, 09/2016, 09/09/2013, Additional history exists Diabetes Screening 03/23/2026 03/23/2023, 0 03/04/2023, 02/18/2023, Additional history exists Cervical Cancer Screening 01/31/2028 HPV/Co-Test 01/31/2028 01/30/2023 GARDASIL-HPV IMMUNIZATION SERIES Aged Out No longer eligible based on patient's age to complete this topic MENINGOCOCCAL (MENACTRA/MENVEO) Aged Out No longer eligible based on patient's age to complete this topic documented as of this encounter Medical Devices Implanted Type Area Rn Imcu Device Identifier Shelf Expiration Date Model / Serial / Lot Port Implant W/8f Poly Cath - [id number] Implanted:Qty : 1 on 03/13/2023 by Krish Miller DO at OR [facility] Right: Chest CR BARD : PERIPHERAL VASCULAR [id number] 11/24/2023 [id number] / / [id number] documented as of this encounter Care Teams Curriculum Writer Relationship Specialty Start Date End Date Vanesa Solorzano DO [address] [place] [address] PCP - General Family Medicine 09/21/18 documented as of this encounter
--- OUTSIDE RECORDS SUMMARY | 2023-04-06 06:16 | External Medical Summary ---
Author Name Unknown Address Unknown Organization [id number] [place] [address] [facility] [address] Laboratory Report Ordering Provider Test Date Status SYLWIA QUINTEROS 03/24/2023 08:48:06 Final Observation Date Value Abnormality Reference (Units ) Status Calcium.ionized [Moles/volume] in Serum or Plasma by Ion-selective membrane electrode (ISE) 03/24/2023 08:48:06 1.33 Above high normal 1.13-1.32 (mmol/L) Final Performing Location [facility] [place] [address] [facility] [address]
--- OUTSIDE RECORDS SUMMARY | 2023-04-06 06:16 | External Medical Summary | Summary of Care ---
Author Name Unknown Organization [facility] Address [address] [place] [address] Phone [phone] Care Team Providers Care Flake Miller Helper Name Role Phone Vanesa Solorzano Primary Care Provider Reason for Visit * Reason Onset Date Comments Advice 03/24/2023 Port dressing Encounter Details Date Type Department Care Team Description 03/24/2023 Telephone Hematology/Oncology [facility] [address] [facility] [place] [address] Crescencio Rosales MD [address] [place] [address] Advice (Port dressing) Allergies No known active allergiesdocumented as of this encounter (statuses as of 03/25/2023) Medications Medication Sig Dispensed Refills Start Date End Date Status Nitroglycerin 0.3 MG Sublingual Tablet Sublingual (NITROSTAT)Indicati ons:Chest pain, unspecified type Place 1 Tab under the tongue as needed for Pain, Chest. May repeat 3 times. If chest pain continues, call 911. 49 Tab 11 05/31/2020 Active Pantoprazole Sodium 40 [...] as of this encounter (statuses as of 03/25/2023) Active Problems Problem Noted Date Encounter for [...] as of this encounter (statuses as of 03/25/2023) Resolved Problems Problem Noted Date Resolved Date Obesity, morbid (more than 1 00 lbs over ideal weight or BMI > 40) 01/08/2010 04/08/2019 Overview: Per Obesity Protocol, #19 ICD-10 update of inactive term Dyslipidemia, goal LDL below 100 09/15/2014 Obesity 04/08/2019 Overview: Per Obesity protocol documented as of this encounter (statuses as of 03/25/2023) Immunizations Name Administration Dates Next Due COVID-19 mRNA, LNP-s, No Pre serve, 2-Dose Series (Pfizer) 10/16/2020,09/25/2020 Seasonal Influenza, PF, 6 mo ns & Above, IM , (Flulaval) 05/31/2020,08/06/2018 Seasonal Influenza, Split, IIV3, With Preserve, Inj 05/04/2013 TD - Tetanus/Diptheria (ADULT) 09/12/2003 TDAP (age 10 and older)(Boostrix) 05/04/2013 documented [...] Telephone Encounter - Gail Lock RN - 03/25/2023 2:14 PM EDT Pt in clinic for appt to see Dr. Aranda. CVAD dressing assessed. Lateral edge of tegaderm is loose; area around nieves needle is clean, dry, and intact. Nieves needle is intact and flush with skin. Tegaderm dressing replaced using sterile procedure; pt tolerated well. Advised pt and mother (caregiver) to keep area dry until needle is removed tomorrow. Gave pt extra medical tape to apply to borders of dressing as needed. * Telephone Encounter - Gail Lock RN - 03/25/2023 12:21 PM EDT Pt's Travis returned call to clinic. Pt is coming to the clinic today to see Dr. Aranda at 2pm. Advised Don that nursing will assess VAD dressing while pt is here. * Telephone Encounter - Gail Lock RN - 03/25/2023 10:49 AM EDT Called mobile number for spouse, Don; LMOM. Calling to check on pt and status of VAD dressing. * Telephone Encounter - Gail Lock RN [...] of infection and prevent di slodgement of nieves needle; Ravi verbalized understanding. Ravi stated he [...] Encounters Date Type Specialty Care Team Description 03/26/2023 Immunization/Injection Hematology Oncolog y Nurse, Med [address] [place] [address] 03/27/2023 Immunization/Injection Hematology Oncolog y Nurse, Med 4 [address] [place] [address] 04/06/2023 Laboratory Laboratory [place] [place] [address] 04/07/2023 Hem/Onc Treatment Hematology Oncology [place], Chair 1 Hem Onc Scenery [address] [place] [address] [address] 04/17/2023 Imaging Radiology 04/29/2023 Office Visit Family Medicine Vanesa Solorzano, DO [address] [place] [address] 04/29/2023 Office Visit Gastroenterology Amberly Turner, TYLER [address] [place] [address] 05/26/2023 Office Visit Gynecology Oncology Brayan Olguin PA-C [address] [facility] [place] [id number] 06/16/2023 Office Visit Neurology Greer Davis PA-C [address] [place] [id number] Health Maintenance Due Date Last Done Comments HIV Screening 1977 Hepatitis C Screening 1980 Cologuard 2007 Sigmoidoscopy 2007 Zoster Vaccines (1 of 2) 2012 Fecal Occult Blood Test 09/26/2017 09/27/19 17, 09/19/2015, 09/09/2013, Additional history exists COVID-19 Vaccine (3 - Pfizer series) 12/11/2020 10/16/2020, 09/25/2020 Depression Screening, Annual for Pts [...] Cancer Screening 03/09/2024 Pap Smear 01/30/2026 01/30/2023, 03/09/2016, 09/09/2013, Additional history exists Diabetes Screening 03/23/2026 03/23/2023, 0 03/04/2023, 02/18/2023, Additional history exists Cervical Cancer Screening 01/31/2028 HPV/Co-Test 01/31/2028 01/30/2023 GARDASIL-HPV IMMUNIZATION SERIES Aged Out No longer eligible based on patient's age to complete this topic MENINGOCOCCAL (MENACTRA/MENVEO) Aged Out No longer eligible based on patient's age to complete this topic Pneumococcal Vaccine: Pediatrics (0 to 5 Years) and At-Risk Patients (6 to 64 Years) Aged Out No longer eligible based on patient's age to complete this topic documented as of this encounter Medical Devices Implanted Type Area Dining Service Worker Device Identifier Shelf Expiration Date Model / Serial / Lot Port Implant W/8f Poly Cath - [id number] Implanted:Qty : 1 on 03/13/2023 by Krish Miller DO at OR [facility] Right: Chest CR BARD : PERIPHERAL VASCULAR [id number] 11/24/2023 [id number] / / [id number] documented as of this encounter Care Teams Flake Miller Helper Relationship Specialty Start Date End Date Vanesa Solorzano DO [address] [place], [place] [phone] PCP - General Family Medicine 09/21/18 documented as of this encounter
--- OUTSIDE RECORDS SUMMARY | 2023-04-06 06:16 | External Medical Summary | Summary of Care ---
Author Name Unknown Organization [facility] Address [address] [place] [address] Phone [phone] Care Team Providers Care Custodial Engineer Name Role Phone Vanesa Solorzano Tracee HARRIS Primary Care Provider Reason for Visit * Reason Comments Chemotherapy FOLFIRINOX * Episode Based Medications (Routine) - Authorized Specialty Diagnoses / Procedures Referred By Todd young Referred To Contact Diagnoses Malignant neoplasm of head of pancreas (HCC) Encounter for antineoplastic chemotherapy Procedures IN LEUCOVORIN CALCIUM INJECTION IN FLUOROURACIL INJECTION IN IRINOTECAN INJECTION IN OXALIPLATIN IN FOSAPREPITANT INJECTION IN INJECTION, UDENYCA 0.5 MG Crescencio Rosales MD [address] [place] [address] Anc Hem/Onc Scenery [facility] [address] [place] [phone] Referral ID Status Reason Start Date Expiration Date V isits Requested Visits Authorized [id number] Authorized 03/02/2023 09/23/2023 12 12 Encounter Details Date Type Department Care Team Description 03/24/2023 Hem/Onc Treatment Hematology/Oncology Treatment, [place] [address] [place] [place] [id number] Lisandra, Chair 5 Hem Onc Scenery [address] [place] [place] [address] [address] Malignant neoplasm of head of pancreas (HCC)*; Encounter for antineoplastic chemotherapy Allergies No known active allergiesdocumented as of this encounter (statuses as of 03/24/2023) Medications Medication Sig Dispensed Refills Start Date End Date Status Nitroglycerin 0.3 MG Sublingual Tablet Sublingual (NITROSTAT)Indicati ons:Chest pain, unspecified type Place 1 Tab under the tongue as needed for Pain, Chest. May repeat 3 times. If chest pain continues, call 911. 25 Tab 11 05/31/2020 Active Pantoprazole Sodium 40 [...] on file documented as of this encounter Last Filed Vital Signs Vital Sign Reading Time Taken Comments Blood Pressure 114/72 03/24/2023 8:31 AM EDT Pulse 112 03/24/2023 8:31 AM EDT Temperature 36.6 C (97.8 F) 03/24/2023 8:31 AM ED T Respiratory Rate 20 03/24/2023 8:31 AM EDT Oxygen Saturation 97% 03/24/2023 8:31 AM EDT Inhaled Oxygen Concentration - - Weight 99.6 kg (219 lb 9.6 oz) 03/24/2023 8:31 A M EDT Height - - Body Mass Index 37.68 03/13/2023 10:45 AM EDT documented in this encounter Nursing Notes * Rose Beckham RN - 03/24/2023 2:21 PM EDT Oxaliplatin, Irinotecan and leucovorin infusions are all complete. Pt tolerated very well. She did describe some abdominal cramps at the very end of Irinotecan and had a small BM. Pt needs assistancetoileting. She had no other significant issues today. Pt and son were given home chemo spill kit. Reviewed appts for follow up and instructed to call with any concerns, son verbalized understanding. Functional status at today's visit: Capable of only limited selfcare, confined to bed or chair more than 50% of waking hours The drug name, dose, infusion volume, rate and route of administration, expiration date and time, appearance and physical integrity of the drug and rate set on the pump and sequencing of drug administration (as applicable) were verified by me and second sign-in RN. Patient was assessed for symptoms or adverse side effects during treatment. Goals: pt to remain free from injury Possible barriers to meeting goals: ambulation with IV pole, pt unable to ambulate, only stand pivot, with L sided weakness Stability of the patient: Moderately unstable - medium risk of patient condition declining or worsening Summary regarding today's goals: Met: pt remained free from injury Pt discharged in stable condition, transportation by son. * Rose Beckham RN - 03/24/2023 9:49 AM EDT Ch 6. Pt arrived today for C1D1 FOLFIRINOX infusion. Pt had labs performed yesterday, ionized Ca drawn today with port access, will be sent to [facility] for processing, ok to proceed with tx as planned perprovider. Labs otherwise WNL. Pt weighed on chemo infusion room scale, noted to be significantly less than previous weight a few days ago. Dr. Rosales is aware, he states to proceed with previous weight for which the chemo plan was created with. Pt arrived in , accompanied by spouse and son. Pt reports secondary to her CVA in December she has had L sided weakness, anxiety, trouble cognitively following conversations at times. She reports R foot feeling like 'cement or a block' she is dragging and it is painful. She reports not being able to get comfortable and she states 'she can't wait to see the Palliative doctor tomorrow'. She goes on to report that she does not take the 'three times a day anxiety pill, it makes her gag'. Spouse reports 'she does take the evening anxiety pill'. She reportsher mother stays with her during the daytime and encourages her t'o take sips of fluids every 15minor so'. She also states her mother gives her something for her bowels, but family does not know which medication. Pt reports 'reflux' and she has been having an issue with burping and discomfort. Sh has some intermittent nausea, has not taken PRN meds, per documentation, pt was instructed to try these meds, along with stool softener and miralax. Asked family to bring medications along to her Palliative Care appt tomorrow. Family is supportive,daughter on her way from [facility] to stay a few days. Chemo agents FOLFIRINOX Appetite fair to good Nausea/Vomiting intermittent nausea, has not taken PRN meds Diarrhea denies Constipation yes, unclear what meds have been given to pt Mucositis denies Fatigue mild Bleeding denies Infection denies Rash denies Numbness tingling denies Pain generalized Radiation no ABN Labs WNL, repeat Ca level today Alt in Tx: no Return in 2 day Safety and Risk for Injury Patient will remain free from injury. Ensure appropriate safety devices are available. Provide and maintain safe environment. * Ayana Carr RN - 03/23/2023 12:36 PM EDT Ca 10.8. Per Dr Rosales, ok for treatment. Would like ionized calcium drawn with treatment tomorrow (verified with lab that this cannot be added to todays lab work). Would like to make sure patient is not taking calcium supplements. Called and spoke to patients . He verified that patient does not take calcium supplements. He notes that patient has had some nausea and constipation. Confirmed that patient does have zofranand compazine at home but has not taken them. Advised that this would be ok to try for nausea. For constipation, patient is taking "some kind of laxative" that her mother gives her, he is not sure what it is. Advised that we suggest stool softener 1-2 times a day, can take miralax once a day as needed. documented in this encounter Plan of Treatment Upcoming Encounters Date Type Specialty Care Team Description 03/25/2023 Office Visit Palliative Medicine Mercedes Aranda MD [address] [facility] [place] [address] 03/26/2023 Immunization/Injection Hematology Oncolog y Nurse, Med 4 [address] [place] [address] 03/27/2023 Immunization/Injection Hematology Oncolog y Nurse, Med 4 [address] [place] [address] 04/06/2023 Laboratory Laboratory [place], Lab Scenery [address] [place] [address] 04/07/2023 Hem/Onc Treatment Hematology [place], Chair 1 Hem Onc Scenery [address] [facility] [address] 04/17/2023 Imaging Radiology 04/29/2023 Office Visit Family Medicine Vanesa Solorzano, DO [address] [place] [address] 04/29/2023 Office Visit Gastroenterology Amberly Turner CRNP [address] [place] [address] 05/26/2023 Office Visit Gynecology Oncology Brayan Olguin PA-C [address] [place] [address] 06/16/2023 Office Visit Neurology Greer Davis PA-C [address] [facility] [place] [address] Pending Results Name Type Priority Associated Diagnoses Date /Time CALCIUM, IONIZED Lab STAT Malignant neoplasm of head of pancreas (HCC) 03/24/2023 8:48 AM EDT Scheduled Orders Name Type Priority Associated Diagnoses Orde r Schedule CALCIUM, IONIZED Lab STAT Malignant neoplasm of head of pancreas (HCC) Expected: 03/23/2023 (Approximate), Expires: 03/23/2024 Health Maintenance Due Date Last Done Comments [...] Cancer Screening 03/09/2024 Pap Smear 01/30/2026 01/30/2023, 03/0 09/2016, 09/09/2013, Additional history exists Diabetes Screening 03/23/2026 03/23/2023, 0 03/04/2023, 02/18/2023, Additional history exists Cervical Cancer Screening 01/31/2028 HPV/Co-Test 01/31/2028 01/30/2023 GARDASIL-HPV IMMUNIZATION SERIES Aged Out No longer eligible based on patient's age to complete this topic MENINGOCOCCAL (MENACTRA/MENVEO) Aged Out No longer eligible based on patient's age to complete this topic documented as of this encounter Medical Devices Implanted Type Area Guest House Manager Device Identifier Shelf Expiration Date Model / Serial / Lot Port Implant W/8f Poly Cath - [id number] Implanted:Qty : 1 on 03/13/2023 by Krish Miller DO at OR [facility] Right: Chest CR BARD : PERIPHERAL VASCULAR [id number] 11/24/2023 [id number] / / [id number] documented as of this encounter Visit Diagnoses Diagnosis Malignant neoplasm of head of pancreas (HCC)- Primary Malignant neoplasm of head of pancreas Encounter for antineoplastic chemotherapy documented in this encounter Administered Medications Active Administered Medications - up to 3 most recent administrations Medication Order MAR Action Action Date Dose Rate Site D5W IV solution Intravenous, at 50 mL/hr, CONTINUOUS, Starting on Thu03/24/23 at 0930, Until Thu03/24/23 at 1929 Start Infusion 03/24/2023 8:30 AM EDT 500 mL 50 mL/hr diphenhydrAMINE (Benadryl) inj 50 mg 50 mg, IV Push, ONCE PRN Other, Hypersensitivity Reaction, Starting on Thu03/24/23 at 0853, Until Thu03/25/23 at 0852, For 24 hours EPINEPHrine 1 MG/ML inj 0.3 mg 0.3 mg, Intramuscular, ONCE PRN Other, Hypersensitivity Reaction or Anaphylaxis, Starting on Thu03/24/23 at 0853, Until Thu03/25/23 at 0852, For 24 hours hEParin 100 UNIT/ML Lock Flush inj 500 Units 500 Units (5 mL), IV Lock, PRN Other, IV Flush, Starting on Thu03/24/23 at 0853, Until Thu03/25/23 at 0852, For 24 hours, Do not flush if lock, PICC, or central line not in place; IV infusing or unable to flush. Hydrocortisone Sod Suc (PF) (Solu-Cortef) inj 100 mg 100 mg, IV Push, ONCE PRN Other, Hypersensitivity Reaction, Starting on Thu03/24/23 at 0853, Until Thu03/25/23 at 0852, For 24 hours oxygen GAS Inhalation, OXYGEN, First dose on Thu03/24/23 at 0930, Until Discontinued, Device/Managed by: Low Flow Device, Goal SPO2 (%): 91-95, Starting Device: Nasal Cannula, Inital Flow Rate (LPM): 2, Lowest Support: Nasal Cannula: Flow 0-6 LPM. Titrate up/down by 1 LPM., Higher Support: Non-Rebreather (NRB) Mask: Minimum of 10 LPM. Titrate to maintain bag inflation., Titration Interval: Q2 minutes and as needed., Notify Provider: For sudden DECREASE in resting SPO2 to less than 85% and when escalating delivery device. sodium chloride 0.9 % flush central line 10 mL 10 mL, IV Push, PRN Other, IV Flush, Starting on Thu03/24/23 at 0853, Until Thu03/25/23 at 0852, For 24 hours, Do not flush if lock, PICC, or central line not in place; IV infusing or unable to flush. Given 03/24/2023 1:30 PM EDT 10 mL Inactive Administered Medications - up to 3 most recent administrations Medication Order MAR Action Action Date Dose Rate Site Atropine sulfate inj 0.4 mg 0.4 mg, IV Push, ONCE, On Thu03/24/23 at 0930, For 1 dose, Give before CPT-11 Given 03/24/2023 11:51 AM EDT 0.4 mg Fluorouracil (5-Fu) 5,450 mg for Home Infusion 5,450 mg (rounded from 5,448 mg = 2,400 mg/m2 2.27 m2 Treatment Plan BSA from Recorded weight), Intravenous, Administer over 46 Hours, Home Infusion Pharmacy to specify base solution and volume., ONCE, 1 dose, On Thu03/24/23 at 1230 Start Infusion 03/24/2023 1:38 PM EDT 5,450 mg fosaprepitant Dimeglumine (Emend) 150 mg, ondansetron (Zofran) 16 mg, dexamethasone sodium phosphate 12 mg in NSS 250 mL Infusion 150 mg, IV Piggyback, ONCE, 1 dose, On Thu03/24/23 at 0930, Administer over 30 Minutes, Give 30 minutes prior to chemotherapy. Infuse over 30 minutes. Start Infusion 03/24/2023 8:56 AM EDT 150 mg 500 mL/hr irinotecan HCl (Camptosar) 340 mg in D5W 500 mL infusion 340 mg, IV Piggyback, ONCE, 1 dose, On Thu03/24/23 at 1100, Administer over 90 Minutes, PROTECT FROM LIGHT Start Infusion 03/24/2023 11:51 AM EDT 340 mg 333.33 mL/hr leucovorin calcium 900 mg in D5W 250 mL INFUSION 900 mg (rounded from 908 mg = 400 mg/m2 2.27 m2 Treatment Plan BSA from Recorded weight), IV Piggyback, ONCE, 1 dose, On Thu03/24/23 at 1100, Administer over 90 Minutes, Run concurrently with irinotecan immediately prior to 5FU Start Infusion 03/24/2023 11:51 AM EDT 900 mg 166.67 mL/hr Oxaliplatin (Eloxatin) 200 mg in D5W 500 mL infusion 200 mg (rounded from 192.95 mg = 85 mg/m2 2.27 m2 Treatment Plan BSA from Recorded weight), IV Piggyback, ONCE, 1 dose, On Thu03/24/23 at 0930, Administer over 120 Minutes, Flush with D5W only! Start Infusion 03/24/2023 9:35 AM EDT 200 mg 250 mL/hr documented in this encounter Care Teams Custodial Engineer Relationship Specialty Start Date End Date Vanesa Solorzano, [address] [place], [place] [phone] PCP - General Family Medicine 09/21/18 documented as of this encounter
--- OUTSIDE RECORDS SUMMARY | 2023-04-06 06:16 | External Medical Summary | Summary of Care ---
Author Name Unknown Organization [facility] Address [address] [place] [address] Phone [phone] Care Team Providers Care Beach Attendant Name Role Phone Vanesa Solorzano Primary Care Provider [phone] Reason for Visit * Reason Onset Date Comments Advice 03/24/2023 Port dressing Encounter Details Date Type Department Care Team Description 03/24/2023 Telephone Hematology/Oncology [facility] 200 [facility] [place] [address] Crescencio Rosales MD [address] [place] [address] Advice (Port dressing) Allergies No known active allergiesdocumented as of this encounter (statuses as of 03/25/2023) Medications Medication Sig Dispensed Refills Start Date End Date Status Nitroglycerin 0.3 MG Sublingual Tablet Sublingual (NITROSTAT)Indicati ons:Chest pain, unspecified type Place 1 Tab under the tongue as needed for Pain, Chest. May repeat 3 times. If chest pain continues, call 911. 41 Tab 11 05/31/2020 Active Pantoprazole Sodium 40 [...] Visit Palliative Medicine Mercedes Aranda MD [address] [facility] [place] [address] 03/26/2023 Immunization/Injection Hematology Oncolog y Nurse, Med 4 [address] [place] [address] 03/27/2023 Immunization/Injection Hematology Oncolog y Nurse, Med 4 [address] [place] [address] 04/06/2023 Laboratory Laboratory [place], Lab Scenery [address] [place] [address] 04/07/2023 Hem/Onc Treatment Hematology [place]cology [place], Chair 1 Hem Onc Scenery [address] [facility] [address] 04/17/2023 Imaging Radiology 04/29/2023 Office Visit Family Medicine Vanesa Solorzano, [address] [place] [address] 04/29/2023 Office Visit Gastroenterology Amberly Turner CRNP [address] [facility] [place] [address] 05/26/2023 Office Visit Gynecology Oncology Brayan Olguin PA-C [address] [place] [address] 06/16/2023 Office Visit Neurology Greer Davis PA-C [address] [place] [address] Health Maintenance Due Date Last Done Comments [...] this encounter Medical Devices Implanted Type Area Reel Hooker Device Identifier Shelf Expiration Date Model / Serial / Lot Port Implant W/8f Poly Cath - [id number] Implanted:Qty : 1 on 03/13/2023 by Krish Miller, DO at OR [facility] Right: Chest CR BARD : PERIPHERAL VASCULAR [id number] 11/24/2023 [id number] / / [id number] documented as of this encounter Care Teams Beach Attendant Relationship Specialty Start Date End Date Kopinski, Vanesa L, DO [address] [place] [address] PCP - General Family Medicine 09/21/18 documented as of this encounter
--- OUTSIDE RECORDS SUMMARY | 2023-04-06 06:16 | External Medical Summary | Summary of Care ---
Author Name Unknown Organization [facility] Address [address] [place] [address] Phone [phone] Care Team Providers Care Copy Chief Name Role Phone MichaelVanesa borden Tracee HARRIS Primary Care Provider Reason for Referral * Precert (Within 10 days (routine)) - Pending Review Specialty Diagnoses / Procedures Referred By Todd young Referred To Contact Radiology Diagnoses History of right MCA stroke Procedures MRI BRAIN W WO CONTRAST Greer Davis PA-C [address] [place] [address] Referral ID Status Reason Start Date Expiration Date V isits Requested Visits Authorized [id number] Pending Review 03/25/2023 999 999 Encounter Details Date Type Department Care Team Description 03/24/2023 Telephone [facility] [place] [facility] [address] [facility] [place] [address] Allergies No known active allergiesdocumented as of [...] needed (Gas). 90 Capsule 3 03/06/2023 Active Hospital, Clinic, or Other Facility Administered Medication Ordered Dose Route Frequency Start Date End Date Status Fluorouracil (5-Fu) 5,450 mg in NSS 230 mL infusion 5450 mg IV ONCE 03/23/2023 03/24/2023 Active documented as of this encounter (statuses [...] on file documented as of this encounter Plan of Treatment Upcoming Encounters Date Type Specialty Care Team Description 03/24/2023 Hem/Onc Treatment Hematology Oncology [place], Chair 5 Hem Onc Scenery [address] [facility] [address] Malignant neoplasm of head of pancreas (HCC)*; Encounter for antineoplastic chemotherapy 03/25/2023 Office Visit Palliative Medicine Mercedes Aranda MD [address] [facility] [place] [address] 04/29/2023 Office Visit Family Medicine Vanesa Solorzano DO [address] [facility] [place] [id number] 04/29/2023 Office Visit Gastroenterology Amberly Turner CRNP [address] [place] [address] 05/26/2023 Office Visit Gynecology Oncology Brayan Olguin PA-C [address] [place] [facility] [place] [address] 06/16/2023 Office Visit Neurology Greer Davis PA-C 21 [place] [address] Scheduled Orders Name Type Priority Associated Diagnoses Orde r Schedule MRI BRAIN W WO CONTRAST Medical Imaging Routine History of right MCA stroke Expected: 03/25/2023, Expires: 04/24/2024 Health Maintenance Due Date Last Done Comments [...] this encounter Medical Devices Implanted Type Area Spa Host Device Identifier Shelf Expiration Date Model / Serial / Lot Port Implant W/8f Poly Cath - [id number] Implanted:Qty : 1 on 03/13/2023 by Krish Miller DO at OR [facility] Right: Chest CR BARD : PERIPHERAL VASCULAR [id number] 11/24/2023 [id number] / / [id number] documented as of this encounter Visit Diagnoses Diagnosis Malignant neoplasm of head of pancreas (HCC)- Primary Malignant neoplasm of head of pancreas Encounter for antineoplastic chemotherapy History of right MCA stroke- Primary Transient ischemic attack (TIA), and cerebral infarction without residual deficits documented in this encounter Care Teams Copy Chief Relationship Specialty Start Date End Date Vanesa Solorzano DO [address] [place] [address] PCP - General Family Medicine 09/21/18 documented as of this encounter
--- OUTSIDE RECORDS SUMMARY | 2023-04-06 06:16 | External Medical Summary | Summary of Care ---
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) Allergies No known active allergiesdocumented as of this encounter (statuses as of 03/23/2023) Medications Medication Sig Dispensed Refills Start Date [...] as of this encounter (statuses as of 03/23/2023) Active Problems Problem Noted Date Encounter for [...] as of this encounter (statuses as of 03/23/2023) Resolved Problems Problem Noted Date Resolved Date Obesity, morbid (more than 1 00 lbs over ideal weight or BMI > 40) 01/08/2010 04/08/2019 Overview: Per Obesity Protocol, #19 ICD-10 update of inactive term Dyslipidemia, goal LDL below 100 09/15/2014 Obesity 04/08/2019 Overview: Per Obesity protocol documented as of this encounter (statuses as of 03/23/2023) Immunizations Name Administration Dates Next Due COVID-19 [...] Team Description 03/24/2023 Hem/Onc Treatment Hematology [place]cology [place], Chair 5 Hem Onc Scenery [address] [place] [address] 03/25/2023 Office Visit Palliative Medicine Mercedes Aranda MD [address] [facility] [place] [phone] 04/29/2023 Office Visit Family Medicine Vanesa Solorzano DO [address] [place] [address] 04/29/2023 Office Visit Gastroenterology Amberly Turner CRNP [address] [place] [address] 05/26/2023 Office Visit Gynecology Oncology Brayan Olguin PA-C [address] [place] [address] 06/16/2023 Office Visit Neurology Greer Dvais PA-C [address] [place] [address] Pending Results Name Type Priority Associated Diagnoses Date /Time CBC WITH WBC DIFFERENTIAL Lab STAT Malignant neoplasm of head of pancreas (HCC) 03/23/2023 7:29 AM EDT COMPREHENSIVE METABOLIC PANEL Lab STAT Malignant neoplasm of head of pancreas (HCC) 03/23/2023 7:29 AM EDT CBC Lab STAT Malignant neoplasm of head of pancreas (HCC) 03/23/2023 7:29 AM EDT DIFFERENTIAL, AUTOMATED Lab STAT Malignant neoplasm of head of pancreas (HCC) 03/23/2023 7:29 AM EDT Health Maintenance Due Date Last Done Comments [...] Cancer Screening 03/09/2024 Pap Smear 01/30/2026 01/30/2023, 0309/2016, 09/09/2013, Additional history exists Diabetes Screening 03/04/2026 03/04/2023, 0 02/18/2023, 02/12/2023, Additional history exists Cervical Cancer Screening 01/31/2028 [...] this encounter Medical Devices Implanted Type Area Management Developer Device Identifier Shelf Expiration Date Model / Serial / Lot Port Implant W/8f Poly Cath - [id number] Implanted:Qty : 1 on 03/13/2023 by Krish Miller DO at OR [facility] Right: Chest CR BARD : PERIPHERAL VASCULAR [id number] 11/24/2023 [id number] / / [id number] documented as of this encounter Visit Diagnoses Diagnosis Malignant neoplasm of head of pancreas (HCC) Malignant neoplasm of head of pancreas documented in this encounter Care Teams Marketing Development Specialist Relationship Specialty Start Date End Date Vanesa Solorzano DO [address] [place] [address] PCP - General Family Medicine 09/21/18 documented as of this encounter
--- OUTSIDE RECORDS SUMMARY | 2023-04-06 06:16 | External Medical Summary | Summary of Care ---
Author Name Unknown Organization [facility] Address [address] [place] [address] Phone [phone] Care Team Providers Care Stitching Machine Setter Name Role Phone MichaelVanesa borden Tracee HARRIS Primary Care Provider [phone] Reason for Referral * Precert (Within 10 days (routine)) - Pending Review Specialty Diagnoses / Procedures Referred By Todd young Referred To Contact Radiology Diagnoses History of right MCA stroke Procedures MRI BRAIN W WO CONTRAST Greer Davis PA-C [address] [facility] [place] [address] Referral ID Status Reason Start Date Expiration Date V isits Requested Visits Authorized [id number] Pending Review 03/25/2023 999 999 Reason for Visit * Reason Onset Date Comments Appointment 03/24/2023 Encounter Details Date Type Department Care Team Description 03/24/2023 Telephone Neurology Marcio [place] [address] [facility], [place] [address] Greer Davis PA-C [address] [place] [address] Appointment Allergies No known active allergiesdocumented as of [...] infusion 5450 mg IV ONCE 03/23/2023 03/24/2023 Ended documented as of this encounter (statuses as [...] encounter Miscellaneous Notes * Telephone Encounter - ROMANA Marinelli - 03/24/2023 11:33 AM EDT Sent myg documented in this encounter Plan of Treatment Upcoming Encounters Date Type Specialty Care Team Description 03/25/2023 Office Visit [facility] Medicine [facility] [address] [facility] [place] [address] 04/29/2023 Office Visit Family Medicine [facility]anesa [facility] [address] [facility] [address] 04/29/2023 Office Visit Gastroenterology Amberly Turner CRNP [address] [place] [address] 05/26/2023 Office Visit Gynecology Oncology Brayan Olguin PA-C [address] [place] [address] 06/16/2023 Office Visit Neurology Greer Davis PA-C 21 [facility] [place] [id number] Scheduled Orders Name Type Priority Associated Diagnoses [...] this encounter Medical Devices Implanted Type Area Gold Buyer Device Identifier Shelf Expiration Date Model / Serial / Lot Port Implant W/8f Poly Cath - [id number] Implanted:Qty : 1 on 03/13/2023 by Krish Miller DO at OR [facility] Right: Chest CR BARD : PERIPHERAL VASCULAR [id number] 11/24/2023 [id number] / / [id number] documented as of this encounter Visit Diagnoses Diagnosis History of right MCA stroke- Primary Transient ischemic attack (TIA), and cerebral infarction without residual deficits documented in this encounter Care Teams Stitching Machine Setter Relationship Specialty Start Date End Date Vanesa Solorzano DO [address] [place] [address] PCP - General Family Medicine 09/21/18 documented as of this encounter
--- OUTSIDE RECORDS SUMMARY | 2023-04-06 06:16 | External Medical Summary | Summary of Care ---
Author Name Unknown Organization [facility] Address [address] [place] [address] Phone [phone] Care Team Providers Care Production Quality Analyst Name Role Phone Vanesa Solorzano Primary Care Provider [phone] Reason for Visit * Reason Onset Date Comments Advice 03/24/2023 Port dressing Encounter Details Date Type Department Care Team Description 03/24/2023 Telephone Hematology/Oncology [facility] [address] [facility] [place] [address] Crescencio Rosales MD [address] [place] [address] Advice (Port dressing) Allergies No known active allergiesdocumented as of this encounter (statuses as of 03/25/2023) Medications Medication Sig Dispensed Refills Start Date End Date Status Nitroglycerin 0.3 MG Sublingual Tablet Sublingual (NITROSTAT)Indicati ons:Chest pain, unspecified type Place 1 Tab under the tongue as needed for Pain, Chest. May repeat 3 times. If chest pain continues, call 911. 38 Tab 11 05/31/2020 Active Pantoprazole Sodium 40 [...] RN - 03/25/2023 12:21 PM EDT Pt's Don returned call to clinic. Pt is coming [...] Visit Palliative Medicine Mercedes Aranda MD [address] [facility] [place] [address] 03/26/2023 Immunization/Injection Hematology Oncolog y Nurse, Med [address] [place] [address] 03/27/2023 Immunization/Injection Hematology Oncolog y Nurse, Med 4 [address] [place] [address] 04/06/2023 Laboratory Laboratory [place], Lab Scenery [address] [place] [address] 04/07/2023 Hem/Onc Treatment Hematology Oncology [place], Chair 1 Hem Onc Scenery [address] [place] [address] 04/17/2023 Imaging Radiology 04/29/2023 Office Visit Family Medicine Vanesa Solorzano, DO [address] [place] [address] 04/29/2023 Office Visit Gastroenterology Amberly Turner CRNP [address] [place] [address] 05/26/2023 Office Visit Gynecology Oncology Brayan Olguin PA-C [address] [place], [place] [id number] 06/16/2023 Office Visit Neurology Greer Davis PA-C [address] [facility] [place] [id number] Health Maintenance Due Date Last Done Comments [...] this encounter Medical Devices Implanted Type Area Cover Mat Machine Operator Device Identifier Shelf Expiration Date Model / Serial / Lot Port Implant W/8f Poly Cath - [id number] Implanted:Qty : 1 on 03/13/2023 by Krish Miller DO at OR [facility] Right: Chest CR BARD : PERIPHERAL VASCULAR [id number] 11/24/2023 [id number] / / [id number] documented as of this encounter Care Teams Production Quality Analyst Relationship Specialty Start Date End Date Vanesa Solorzano DO [address] [place] [address] PCP - General Family Medicine 09/21/18 documented as of this encounter
--- OUTSIDE RECORDS SUMMARY | 2023-04-06 06:17 | External Medical Summary | Summary of Care ---
Author Name Unknown Organization [facility] Address [address] [place] [address] Phone [phone] Care Team Providers Care Marketing Sales Supervisor Name Role Phone Vanesa Solorzano Primary Care Provider Reason for Visit * Reason Onset Date Comments Precert Future 02/18/2023 FOLFIRINOX Encounter Details Date Type Department Care Team Description 02/18/2023 Telephone Hematology/Oncology Treatment, [place] [address] [place] [phone] Crescencio Rosales MD [address] [place] [address] Precert Future (FOLFIRINOX) Allergies No known active allergiesdocumented as of this encounter (statuses as of 03/05/2023) Medications Medication Sig Dispensed Refills Start Date End Date Status Nitroglycerin 0.3 MG Sublingual Tablet Sublingual (NITROSTAT)Indica tions:Chest pain, unspecified type Place 1 Tab under the tongue as needed for Pain, Chest. May repeat 3 times. If chest pain continues, call 911. 85 Tab 11 05/31/2020 Active Pantoprazole Sodium 40 MG Oral Tablet Delayed Release (Protonix) Take 1 Tablet by mouth in the morning. 0 Active Apixaban 5 MG Oral Tablet (Eliquis)Indicati ons:Acute CVA (cerebrovascular accident) (HCC),Paroxysmal atrial flutter (HCC) Take 1 Tablet by mouth in the morning and 1 Tablet before bedtime. 60 Tablet 11 01/26/2023 Active Megestrol Acetate 20 MG Oral Tablet (Megace) Take 1 Tablet by mouth in the morning and 1 Tablet before bedtime. 0 02/09/2023 Active Metoprolol Succinate ER 25 MG Oral Tablet Extended Release 24 Hour (toPROL XL) Take 1 Tablet by mouth in the morning and 1 Tablet before bedtime. 0 Active TYLENOL 325 MG PO TABS uses as needed 0 3 Discontinued Losartan Potassium 50 MG Oral Tablet (Cozaar) Take 1 Tablet by mouth in the morning and 1 Tablet before bedtime. 0 01/20/2023 3 Discontinued(Medi cation/Dose Changed) Simethicone 125 MG Oral Capsule Take 1 Capsule by mouth 2 times a day as needed. 0 3 Discontinued(Refi ll) oxyCODONE HCl 5 MG Oral Tablet (Oxy IR) Take 1 Tablet by mouth every 8 hours as needed. 0 02/09/2023 3 Discontinued(Medi cation/Dose Changed) Ciprofloxacin HCl 500 MG Oral Tablet (Cipro) Take 1 Tablet by mouth in the morning and 1 Tablet before bedtime. 0 3 Discontinued(Medi cation/Dose Changed) documented as of this encounter (statuses as of 03/05/2023) Active Problems Problem Noted Date Encounter for [...] as of this encounter (statuses as of 03/05/2023) Resolved Problems Problem Noted Date Resolved Date Obesity, morbid (more than 1 00 lbs over ideal weight or BMI > 40) 01/08/2010 04/08/2019 Overview: Per Obesity Protocol, #19 ICD-10 update of inactive term Dyslipidemia, goal LDL below 100 09/15/2014 Obesity 04/08/2019 Overview: Per Obesity protocol documented as of this encounter (statuses as of 03/05/2023) Immunizations Name Administration Dates Next Due COVID-19 mRNA, LNP-s, No Pre serve, 2-Dose Series (Pfizer) 10/16/2020,09/25/2020 Seasonal Influenza, Quadriva lent, No Preserve, 6 Mons & Above, IM 05/31/2020,08/06/2018 Seasonal Influenza, Split, IIV3, With Preserve, [...] Miscellaneous Notes * Telephone Encounter - ROMANA Oliver - 03/05/2023 9:42 AM EDT Spoke to patients , scheduled labs 03/23, treatment 03/24. * Telephone Encounter - Ayana Carr RN - 03/05/2023 8:51 AM EDT Port placement is scheduled 03/13/23. Scheduling: please call patient to schedule for after this date Day prior to chemotherapy: - labs "CBCd, CMP" - labs must be in AM at [facility] or [facility] - this needs to be on a Thursday Treatment day: - 5 hour appt on 503 schedule "C1D1 FOLFIRINOX/ udenyca day 4- Vitaline" (Connie) - treatment must be on a Thursday due to patient returning for pump disconnect, Thursday for udenyca * Addendum Note - Ayana Carr RN - 03/04/2023 4:01 PM EDTAddended by: AYANA BROWN on: 03/04/2023 04:01 PM Modules accepted: Orders * Addendum Note - Ayana Carr RN - 03/03/2023 8:20 AM EDTAddended by: AYANA BROWN on: 03/03/2023 08:20 AM Modules accepted: Orders * Telephone Encounter - Ayana Carr RN - 03/03/2023 8:17 AM EDT Referral entered. Patient has decided to proceed with chemotherapy. Consent signed 03/02/23. IS referral TE sent. Patient still needs mediport- not scheduled. Nurse education 03/03/23. Patient will need hep B labs. * Telephone Encounter - Ayana Carr RN - 02/18/2023 11:36 AM EDT Order received for FOLFIRINOX. Aragon plan placed on hold- patient has appt with journeyman meat cutter/onc for endometrial cancer 02/18/23, also scheduled to see gen surg 02/24/23 to discuss surgical options. Patient is returning 03/11/[address] Rosales and decide on proceeding with chemotherapy. documented in this encounter Plan of Treatment Upcoming Encounters Date Type Specialty Care Team Description 03/11/2023 Scheduled Telephone Palliative Medicine [place], Nurse Palliative Medicine [facility] [address] [place] [address] [place] [phone] 03/13/2023 Hospital Encounter Surgery Krish Miller, DO [address] [place] [phone] 03/13/2023 Surgery Surgery Krish Miller, DO [address] [place] [phone] INSERT TUNNELED CENTRAL VENOUS ACCESS WITH SUBQ PORT 03/20/2023 Office Visit Neurology Greer Davis PA-C [facility] [place] [phone] 03/23/2023 Laboratory Laboratory [place], Lab Scenery [address] [place] [address] 03/24/2023 Hem/Onc Treatment Hematology Oncology [place], Chair 5 Hem Onc Scenery [address] [place] [address] 03/25/2023 Office Visit [facility]iative Medicine [facility] [phone] 04/29/2023 Office Visit Family Medicine Vanesa Solorzano, DO [address] [place] [address] 04/29/2023 Office Visit Gastroenterology Amberly Turner CRNP [address] [place] [phone] 05/26/2023 Office Visit Gynecology Oncology Brayan Ogluin PA-C [address] [place], [place] [phone] Scheduled Orders Name Type Priority Associated Diagnoses Orde r Schedule CBC WITH WBC DIFFERENTIAL Lab STAT Malignant neoplasm of head of pancreas (HCC) Every 2 Weeks for 26 Occurrences starting 03/03/2023 until 03/03/2024, 1 completed COMPREHENSIVE METABOLIC PANEL Lab STAT Malignant neoplasm of head of pancreas (HCC) Every 2 Weeks for 26 Occurrences starting 03/03/2023 until 03/03/2024, 1 completed Scheduled Procedures Name Priority Associated Diagnoses Date/Ti me INSERT TUNNELED CENTRAL VENOUS ACCESS WITH SUBQ PORT Malignant neoplasm of head of pancreas (HCC) 03/13/2023 12:03 PM EDT Health Maintenance Due Date Last Done [...] 09/2016, 09/09/2013, Additional history exists Diabetes Screening 03/04/2026 [...] documented as of this encounter Medical Devices Not on filedocumented as of this encounter Results * FOLIC ACID (03/04/2023 12:37 PM EDT) Folic Acid 7.6 >4.5 ng/mL 03/04/2023 10:23 PM EDT [facility] Blood Venous blood specimen / Unknown Venipuncture / Unknown 03/04/2023 12:37 PM EDT 03/04/2023 12:37 PM EDT Crescencio Rosales MD LAB BLOOD [facility] [address] [place] [address] * VITAMIN B12 (03/04/2023 12:37 PM EDT) Vitamin B12 662 232 - 1,245 pg/mL 03/04/2023 10:23 PM EDT LABORATORY [facility] Blood Venous blood specimen / Unknown Venipuncture / Unknown 03/04/2023 12:37 PM EDT 03/04/2023 12:37 PM EDT Crescencio Rosales MD LAB BLOOD ORDERA [facility] LAB[facility]AT[facility] [address] [place] [address] * IRON SCREEN, INCLUDING TIBC (03/04/2023 12:37 PM EDT) Iron 39 33 - 151 ug/dL 03/04/2023 11:52 PM EDT [facility] Iron Binding Capacity 262 250 - 425 ug/dL 03/04/2023 11:52 PM EDT [facility] Transferrin Saturation Percent 15 15 - 55 % 03/04/2023 11:52 PM EDT LABORATORY [facility] Blood Venous blood specimen / Unknown Venipuncture / Unknown 03/04/2023 12:37 PM EDT 03/04/2023 12:37 PM EDT Crescencio Rosales MD LAB BLOOD ORDERA BLES Performing Organization Address [facility] [address]/[facility] de Phone Number LABORATORY [facility] [address] [place] [address] * (ABNORMAL) FERRITIN (03/04/2023 12:37 PM EDT) Ferritin 542(H) 13 - 150 ng/mL 03/04/2023 10:23 PM EDT LABORATORY [facility] Comment: Postmenopausal women have higher ferritin levels than pre-menopausal women. The above reference interval is based on pre-menopausal women. The above reference range is based on the legal sex of the patient only. Results should be interpreted together with patient's sex at , gender identity, and clinical context. Blood Venous blood specimen / Unknown Venipuncture / Unknown 03/04/2023 12:37 PM EDT 03/04/2023 12:37 PM EDT Crescencio Rosales MD LAB BLOOD ORDERA BLES Performing Organization Address [facility] de Phone Number LABORATORY [facility] [address] [place] [address] * HEPATITIS B CORE ANTIBODIES IGG AND IGM (03/04/2023 12:37 PM EDT) Pathologist [facility] Hepatitis B Core Antibodies IgG and IgM Negative Negative 03/04/2023 10:50 PM EDT LABORATORY [facility] Blood Venous blood specimen / Unknown Venipuncture / Unknown 03/04/2023 12:37 PM EDT 03/04/2023 12:37 PM EDT Crescencio Rosales MD LAB BLOOD ORDER[facility]ES Performing Organization Address [facility] [address]/[facility] de Phone Number LABORATORY [facility] [address] [place] [address] * HEPATITIS B SURFACE ANTIGEN (03/04/2023 12:37 PM EDT) [facility] Hepatitis B Surface Antigen Negative Negative 03/04/2023 10:50 PM EDT LABORATORY [facility] Blood Venous blood specimen / Unknown Venipuncture / Unknown 03/04/2023 12:37 PM EDT 03/04/2023 12:37 PM EDT Crescencio Rosales MD LAB BLOOD [facility] LABORATORY [facility] [address] [place] [address] * HEPATITIS B SURFACE ANTIBODY (03/04/2023 12:37 PM EDT) [facility] Hepatitis B Surface Antibody, Quantitative <3.5 mIU/mL 03/04/2023 10:50 PM EDT LABORATORY [facility] Hepatitis B Surface Antibody, Qualitative Negative 03/04/2023 10:50 PM EDT LABORATORY [facility] Hepatitis B Surface Antibody, Interpretation NOT immune to Hepatitis B Virus 03/04/2023 10:50 PM EDT LABORATORY [facility] Comment: POSITIVE: >=11.5 mIU/mL INDETERMINATE: 8.5-<11.5 mIU/mL NEGATIVE: <8.5 mIU/mL Blood Venous blood specimen / Unknown Venipuncture / Unknown 03/04/2023 12:37 PM EDT 03/04/2023 12:37 PM EDT Crescencio Rosales MD LAB BLOOD [facility] LABORATORY [facility] [address] [place] [address] * (ABNORMAL) COMPREHENSIVE METABOLIC PANEL (03/04/2023 12:37 PM EDT) [facility] BUN 7 6 - 20 mg/dL 03/04/2023 1:05 PM EDT LABORATORY [place] 56-02 Creatinine 0.8 0.5 - 1.0 mg/dL 03/04/2023 1:05 PM [facility] 56 Comment:The above reference range is based on the legal sex of the patient only. Results should be interpreted together with patient's sex at , gender identity, and clinical context. Estimated Glomerular Filtration Rate 87 >=60 mL/min 03/04/2023 1:05 PM [facility] 56 Comment:eGFR is calculated b ased on the legal sex of the patient, using the CKD- EPI 2020 equation Sodium 135 135 - 146 mmol/L 03/04/2023 1:[address] Potassium 4.0 3.5 - 5.1 mmol/L 03/04/2023 1:[address] Chloride 100 98 - 107 mmol/L 03/04/2023 1:[address] CO2 22 22 - 32 mmol/L 03/04/2023 1:05 PM [place] [address] Anion Gap 13 7 - 15 mmol/L 03/04/2023 1:[address] Glucose 175(H) 70 - 120 mg/dL 03/04/2023 1:[address] Albumin 4.2 3.8 - 5.0 g/dL 03/04/2023 1:[address] AST 21 10 - 35 U/L 03/04/2023 1:[address] Alkaline Phosphatase 102 35 - 130 U/L 03/04/2023 1:[address] Bilirubin, Total 0.8 <=1.2 mg/dL 03/04/2023 1:05 PM [facility] 56 Calcium 10.3(H) 8.4 - 10.2 mg/dL 03/04/2023 1:[address] Protein 7.5 6.0 - 8.3 g/dL 03/04/2023 1:05 PM [facility] 56 ALT 16 10 - 35 U/L 03/04/2023 1:05 PM [facility] 56 Blood Venous blood specimen / Unknown Venipuncture / Unknown 03/04/2023 12:37 PM EDT 03/04/2023 12:37 PM EDT Crescencio Rosales MD LAB BLOOD ORDERA BLES LABORATORY [place] [address] [place] [address] documented in this encounter Visit Diagnoses Diagnosis Malignant neoplasm of head of pancreas (HCC)- Primary Malignant neoplasm of head of pancreas Malignant neoplasm of head of pancreas (HCC) Malignant neoplasm of head of pancreas documented in this encounter Care Teams Marketing Sales Supervisor Relationship Specialty Start Date End Date Vanesa Solorzano, DO [address] [place] [address] [phone] PCP - General Family Medicine 09/21/18 documented as of this encounter
--- OUTSIDE RECORDS SUMMARY | 2023-04-06 06:17 | External Medical Summary ---
Author Name Unknown Address Unknown Organization K09[facility] [place] [address] Laboratory Report Ordering Provider Test Date Status SYLWIA QUINTEROS 03/23/2023 07:29:12 Final Observation Date Value Abnormality Reference (Units ) Status WBC, Total 03/23/2023 07:29:12 16.74 Above high normal 4 .00-10.80 (K/uL) Final RBC 03/23/2023 07:29:12 3.99 3.85-5.15 (M/uL) Final Hemoglobin 03/23/2023 07:29:12 10.5 Below low normal 12 .0-15.3 (g/dL) Final HCT 03/23/2023 07:29:12 33.7 Below low normal 36. 0-45.2 (%) Final MCV 03/23/2023 07:29:12 84.5 81.5-97.5 (fL) Final MCH 03/23/2023 07:29:12 26.3 27.0-34.0 (pg) Final MCHC 03/23/2023 07:29:12 31.2 32.0-36.0 (g/dL) Final RDW 03/23/2023 07:29:12 16.2 11.5-15.5 (%) Final Platelets 03/23/2023 07:29:12 189 140-400 (K /uL) Final MPV 03/23/2023 07:29:12 11.0 6.6-11.1 ( fL) Final Performing Location [facility] [place] [address]
--- OUTSIDE RECORDS SUMMARY | 2023-04-06 06:17 | External Medical Summary | Summary of Care ---
Author Name Unknown Organization [facility] Address [address] [place] [address] Phone [phone] Care Team Providers Care Manager Psychiatry Name Role Phone Vanesa Solorzano Primary Care Provider Reason for Visit * Reason Onset Date Comments Test Results Lab 03/19/2023 Encounter Details Date Type Department Care Team Description 03/19/2023 Telephone Hematology/Oncology [facility] [address] [facility] [place] [address] Maxwell Galvin MD [address] [place] [address] Test Results Lab Allergies No known active allergiesdocumented as of this encounter (statuses as of 03/19/2023) Medications Medication Sig Dispensed Refills Start Date End Date Status Nitroglycerin 0.3 MG Sublingual Tablet Sublingual (NITROSTAT)Indicati ons:Chest pain, unspecified type Place 1 Tab under the tongue as needed for Pain, Chest. May repeat 3 times. If chest pain continues, call 911. 00 Tab 11 05/31/2020 Active Additional Information Patient not taking.Reported on 03/13/2023 Pantoprazole Sodium 40 MG Oral Tablet Delayed [...] for Nausea. 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) Take 1 tablets for 5 days each chemo cycle, starting the day BEFORE udenyca injection 60 Tablet 0 03/03/2023 Active Additional Information Patient not taking.Reported on 03/13/2023 oxyCODONE-Acetamino phen 5-325 MG Oral Tablet (Percocet)Indicatio [...] as of this encounter (statuses as of 03/19/2023) Active Problems Problem Noted Date Encounter for [...] as of this encounter (statuses as of 03/19/2023) Resolved Problems Problem Noted Date Resolved Date Obesity, morbid (more than 1 00 lbs over ideal weight or BMI > 40) 01/08/2010 04/08/2019 Overview: Per Obesity Protocol, #19 ICD-10 update of inactive term Dyslipidemia, goal LDL below 100 09/15/2014 Obesity 04/08/2019 Overview: Per Obesity protocol documented as of this encounter (statuses as of 03/19/2023) Immunizations Name Administration Dates Next Due COVID-19 [...] encounter Miscellaneous Notes * Telephone Encounter - Edna Miranda LPN - 03/19/2023 11:04 AM EDT Notified patient per Shoette message, patient is active. ----- Message from Maxwell Galvin MD sent at 03/18/2023 6:23 PM EDT ----- NGS checkup of the pancreatic cancer: -TMB low, MSI stable -BRCA2 positive. She is a case of pancreatic cancer endometrial cancer. Earlier she was referred to genetic Clinic but she declined for that I would prefer that she should be seen in genetic Clinic. documented in this encounter Plan of Treatment Upcoming Encounters Date Type Specialty Care Team Description 03/20/2023 [facility] [place] [address] 03/23/2023 Laboratory Laboratory [place], Lab Scenery [address] [facility] [place] [address] 03/24/2023 Hem/Onc Treatment Hematology [facility] [place], Chair 5 Hem Onc Scenery [address] [facility] [place] [address] 03/25/2023 Office Visit Palliative Medicine Mercedes Aranda MD [address] [place] [address] [place] [address] 04/29/2023 Office Visit Family Medicine Vanesa Solorzano, [address] [place] [address] 04/29/2023 Office Visit Gastroenterology Amberly Turner, TYLER [address] [place] [address] 05/26/2023 Office Visit Gynecology Oncology Brayan Olguin PA-C [address] [place] [address] Health Maintenance Due Date Last Done Comments [...] this encounter Medical Devices Implanted Type Area Institute Director Device Identifier Shelf Expiration Date Model / Serial / Lot Port Implant W/8f Poly Cath - [id number] Implanted:Qty : 1 on 03/13/2023 by Krish Miller DO at OR [facility] Right: Chest CR BARD : PERIPHERAL VASCULAR [id number] 11/24/2023 [id number] / / [id number] documented as of this encounter Care Teams Manager Psychiatry Relationship Specialty Start Date End Date Vanesa Solorzano DO [address] [place] [address] PCP - General Family Medicine 09/21/18 documented as of this encounter
--- OUTSIDE RECORDS SUMMARY | 2023-04-06 06:17 | External Medical Summary | Summary of Care ---
Author Name Unknown Organization [facility] Address [address] [place] [address] Phone [phone] Care Team Providers Care Advertising Sales Assistant Name Role Phone Vanesa Solorzano Primary Care Provider Reason for Visit * Reason Onset Date Comments Medication Refill 03/06/2023 Encounter Details Date Type Department Care Team Description 03/06/2023 Refill [facility] [address] [place] [address] Krish Minor MD [address] [place] [address] Allergies No known active allergiesdocumented as of this encounter (statuses as of 03/06/2023) Medications Medication Sig Dispensed Refills Start Date End Date Status Nitroglycerin 0.3 MG Sublingual Tablet Sublingual (NITROSTAT)Indicatio ns:Chest pain, unspecified type Place 1 Tab under the tongue as needed for Pain, Chest. May repeat 3 times. If chest pain continues, call 911. 25 Tab 11 05/31/2020 Active Pantoprazole Sodium 40 MG Oral Tablet Delayed Release (Protonix) Take 1 Tablet by mouth in the morning. 0 Active Apixaban 5 MG Oral Tablet (Eliquis)Indications :Acute CVA (cerebrovascular accident) (HCC),Paroxysmal atrial flutter (HCC) Take 1 Tablet by mouth in the morning and 1 Tablet before bedtime. 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 30 Tablet 0 03/02/2023 Active Ondansetron HCl 8 MG Oral TabletIndications:Ma lignant neoplasm of head of pancreas (HCC) Take 1 Tablet by mouth every 8 hours as needed for Nausea. 30 Tablet 0 03/02/2023 Active Lidocaine-Prilocaine 2.5-2.5 % External Cream (Emla)Indications:Ma lignant neoplasm of head of pancreas (HCC) APPLY TO SKIN OVER MEDIPORT & COVER 1HR PRIOR TO ACCESSING. 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 120 Tablet 0 03/04/2023 Active Mirtazapine 15 MG Oral Tablet (Remeron)Indications :Anxiety disorder due to medical condition Take 1 Tablet by mouth at bedtime. 30 Tablet 0 03/04/2023 Active busPIRone HCl 10 MG Oral Tablet (Buspar)Indications: Anxiety disorder due to medical condition Take 1 Tablet by mouth 3 times a day as needed (Anxiety). 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 90 Capsule 3 03/04/2023 Active Metoprolol Succinate ER 25 MG Oral Tablet Extended Release 24 Hour (toPROL XL) Take 1 Tablet by mouth in the morning and 1 Tablet before bedtime. 60 Tablet 1 03/05/2023 Active Megestrol Acetate 20 MG Oral Tablet (Megace) Take 1 Tablet by mouth in the morning and 1 Tablet before bedtime. 60 Tablet 1 03/05/2023 Active documented as of this encounter (statuses as of 03/06/2023) Active Problems Problem Noted Date Encounter for [...] as of this encounter (statuses as of 03/06/2023) Resolved Problems Problem Noted Date Resolved Date Obesity, morbid (more than 1 00 lbs over ideal weight or BMI > 40) 01/08/2010 04/08/2019 Overview: Per Obesity Protocol, #19 ICD-10 update of inactive term Dyslipidemia, goal LDL below 100 09/15/2014 Obesity 04/08/2019 Overview: Per Obesity protocol documented as of this encounter (statuses as of 03/06/2023) Immunizations Name Administration Dates Next Due COVID-19 [...] encounter Miscellaneous Notes * Telephone Encounter - Jocelynn Duran RPh - 03/06/2023 8:55 AM EDTRefused Prescriptions: Disp Refills Metoprolol Succinate ER 25 MG Oral Tablet *60 Tab*1 Sig: Take 1 Tablet by mouth in the morning and 1 Tablet before bedtime.Refused By: Lala DURAN for Refusal: Duplicate Request Megestrol Acetate 20 MG Oral Tablet (Megac*60 Tab*1 Sig: Take 1 Tablet by mout h in the morning and 1 Tablet before bedtime.Refused By: Lala DURAN for Refusal:Duplicate Request documented in this encounter Plan of Treatment Upcoming Encounters Date Type Specialty Care Team Description 03/11/2023 Scheduled Telephone Palliative Medicine Fl, Nurse Palliative Medicine [facility] 5th [address] [address] 03/13/2023 Hospital Encounter Surgery Krish Miller, [address] [address] 03/13/2023 Surgery Surgery Krish Miller DO [address] [address] INSERT TUNNELED CENTRAL VENOUS ACCESS WITH SUBQ PORT 03/20/2023 Office Visit Neurology Greer Davis PA-C [address] [facility] [place] [address] 03/23/2023 Laboratory Laboratory [place], Lab Scenery [address] [place], [place] [address] 03/24/2023 Hem/Onc Treatment Hematology Oncology Sigourney, Chair 5 Hem Onc Scenery [address] [place] [address] 03/25/2023 Office Visit Palliative Medicine Mercedes Aranda MD [address] [facility] [place] [phone] 04/29/2023 Office Visit Family Medicine Vanesa Solorzano, [address] [address] 04/29/2023 Office Visit Gastroenterology Amberly Turner CRNP [address] [place] [address] 05/26/2023 Office Visit Gynecology Oncology Brayan Olguin PA-C [address] [place], [place] [phone] Scheduled Procedures Name Priority Associated Diagnoses Date/Ti [...] 03/09/2016, 09/09/2013, Additional history exists Diabetes Screening 03/04/2026 [...] Not on filedocumented as of this encounter Care Teams Advertising Sales Assistant Relationship Specialty Start Date End Date Vanesa Solorzano, DO [address] [place] [address] PCP - General Family Medicine 09/21/18 documented as of this encounter
--- OUTSIDE RECORDS SUMMARY | 2023-04-06 06:17 | External Medical Summary | Summary of Care ---
Author Name Unknown Organization [facility] Address [address] [place] [address] Phone [phone] Care Team Providers Care Strike On Machine Operator Name Role Phone Vanesa Solorzano Primary Care Provider Reason for Visit * Reason Onset Date Comments Referral 03/03/2023 [facility] Encounter Details Date Type Department Care Team Description 03/03/2023 Telephone Hematology/Oncology Treatment, [place] [address] [place] [place] [id number] Crescencio Rosales MD [address] [place] [address] Referral ([facility]) Allergies No known active allergiesdocumented as of [...] Active Prochlorperazine Maleate 10 MG Oral Tablet (Compazine)Indica tions: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 30 Tablet 0 03/02/2023 Active Ondansetron HCl 8 MG Oral TabletIndications :Malignant neoplasm of head of pancreas (HCC) Take 1 Tablet by mouth every 8 hours as needed for Nausea. 30 Tablet 0 03/02/2023 Active TYLENOL 325 MG PO TABS uses as needed 0 3 Discontinued Simethicone 125 MG Oral Capsule Take 1 Capsule by mouth 2 times a day as needed. 0 3 Discontinued(Refi ll) Megestrol Acetate 20 MG Oral Tablet (Megace) Take 1 Tablet by mouth in the morning and 1 Tablet before bedtime. 0 02/09/2023 3 Discontinued(Refi ll) Metoprolol Succinate ER 25 MG Oral Tablet Extended Release 24 Hour (toPROL XL) Take 1 Tablet by mouth in the morning and 1 Tablet before bedtime. 0 3 Discontinued(Refi ll) documented as of this encounter (statuses as [...] encounter Miscellaneous Notes * Telephone Encounter - Ayana Carr RN - 03/06/2023 9:23 AM EDT FYI: start date 03/24 * Telephone Encounter - Ayana Carr RN - 03/03/2023 8:18 AM EDT Name: Jacque Spivey Cancer Diagnosis: c25.9 Attending Oncologist: Dr Rosales Medication Requested: 5FU Route of Infusion: IV Length of infusion: 46 hours Chemotherapy to be disconnected at clinic: yes, date: n/a If no, please list home health agency and start of care date: n/a documented in this encounter Plan of Treatment Upcoming Encounters Date Type Specialty Care Team Description 03/11/2023 Scheduled Telephone Palliative Medicine Fl, Nurse Palliative Medicine [facility] 5th [address] [facility] [id number] 03/13/2023 Hospital Encounter Surgery Krish Miller, DO [address] [place] [phone] 03/13/2023 Surgery Surgery Krish Miller, DO [address] [place] [id number] INSERT TUNNELED CENTRAL VENOUS ACCESS WITH SUBQ PORT 03/20/2023 Office Visit Neurology Greer Davis PA-C [address] [facility] [place] [address] 03/23/2023 Laboratory Laboratory [facility], Lab Sc[facility]ery [address] [facility] [address] 03/24/2023 Hem/Onc Treatment Hematology Oncology Mcfarlan, Chair 5 Hem Onc Scenery [address] [facility] [address] 03/25/2023 Office Visit Palliative Medicine [facility] [address] [facility] [phone] 04/29/2023 Office Visit Family Medicine Vanesa Solorzano, DO [address] [facility] [place] [address] 04/29/2023 Office Visit Gastroenterology Amberly Turner CRNP [address] [place] [address] 05/26/2023 Office Visit Gynecology Oncology Brayan Olguin PA-C [address] [place] [address] Scheduled Procedures Name Priority Associated Diagnoses Date/Ti [...] filedocumented as of this encounter Care Teams Strike On Machine Operator Relationship Specialty Start Date End Date Vanesa Solorzano, [address] [place] [address] PCP - General Family Medicine 09/21/18 documented as of this encounter
--- OUTSIDE RECORDS SUMMARY | 2023-04-06 06:17 | External Medical Summary | Summary of Care ---
Author Name Unknown Organization [facility] Address [address] [place] [address] Phone [phone] Care Team Providers Care Equine Manager Name Role Phone Vanesa Solorzano Primary Care Provider Reason for Visit * Reason Onset Date Comments Palliative Care Follow-up 03/11/2023 Encounter Details Date Type Department Care Team Description 03/11/2023 Scheduled Telephone Palliative Medicine, [address] 5[address] Floor [place], [place] [phone] Fl, Nurse Palliative Medicine [address] [address] Allergies No known active allergiesdocumented as of this encounter (statuses as of 03/11/2023) Medications Medication Sig Dispensed Refills Start Date [...] Pain, Severe. 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 90 Capsule 3 03/06/2023 Active documented as of this encounter (statuses as of 03/11/2023) Active Problems Problem Noted Date Encounter for [...] as of this encounter (statuses as of 03/11/2023) Resolved Problems Problem Noted Date Resolved Date Obesity, morbid (more than 1 00 lbs over ideal weight or BMI > 40) 01/08/2010 04/08/2019 Overview: Per Obesity Protocol, #19 ICD-10 update of inactive term Dyslipidemia, goal LDL below 100 09/15/2014 Obesity 04/08/2019 Overview: Per Obesity protocol documented as of this encounter (statuses as of 03/11/2023) Immunizations Name Administration Dates Next Due COVID-19 [...] encounter Miscellaneous Notes * Telephone Encounter - Caren Becker LPN - 03/11/2023 2:21 PM EDT Call back from patient Was having some vomiting last night Thinks she ate something bad Feeling better today Getting port placed on Thursday Still getting pain in her stomach, especially when she walks The simethicone does help, but had missed it for one day so still catching up from that Her mood is up and down She could not confirm with me for sure that she is taking the buspar and mirtazapine Advised patient to make sure she is taking it Overall doesn't have any immediate concerns today She is going to take a simethicone and go for a walk to try and ease the gas in her stomach * Telephone Encounter - Caren Becker LPN - 03/11/2023 11:38 AM EDT Palliative Medicine f/u phone call No answer Left message requesting return call to [phone] documented in this encounter Plan of Treatment Upcoming Encounters Date Type Specialty Care Team Description 03/13/2023 Hospital Encounter Surgery Krish Miller, DO [address] [place] [address] 03/13/2023 Surgery Surgery Krish Miller, DO [address] [place] [address] [address] INSERT TUNNELED CENTRAL VENOUS ACCESS WITH SUBQ PORT 03/20/2023 Office Visit Neurology Greer Davis PA-C [address] [place] [address] 03/23/2023 Laboratory Laboratory Lis[facility], Lab Scenery [address] [place] [address] 03/24/2023 Hem/Onc Treatment Hematology Oncology Duncan, Chair 5 Hem Onc Scenery [address] [place] [address] 03/25/2023 Office Visit Palliative Medicine Mercedes Aranda MD [address] [facility] [place] [phone] 04/29/2023 Office Visit Family Medicine Vanesa Solorzano, DO [address] [place] [address] 04/29/2023 Office Visit Gastroenterology Amberly Turner CRNP [address] [place] [address] 05/26/2023 Office Visit Gynecology Oncology Brayan Olguin PA-C [address] [place] [address] Scheduled Procedures Name Priority Associated Diagnoses Date/Ti [...] filedocumented as of this encounter Care Teams Equine Manager Relationship Specialty Start Date End Date Vanesa Solorzano, [address] [place] [address] PCP - General Family Medicine 09/21/18 documented as of this encounter
--- OUTSIDE RECORDS SUMMARY | 2023-04-06 06:17 | External Medical Summary | Summary of Care ---
Author Name Unknown Organization [facility] Address [address] [place] [address] Phone [phone] Care Team Providers Care Bobbin Washer Name Role Phone Vanesa Solorzano Primary Care Provider Reason for Visit * Reason Onset Date Comments Scheduling 03/04/2023 Encounter Details Date Type Department Care Team Description 03/04/2023 Telephone Interventional Radiology, [facility] [address] [place], [place] [phone] Requisition, External Radiology [address] [place] [address] Scheduling Allergies No known active allergiesdocumented as of this encounter (statuses as of 03/04/2023) Medications Medication Sig Dispensed Refills Start Date End Date Status TYLENOL 325 MG PO TABS uses as needed 0 Active Nitroglycerin 0.3 MG Sublingual Tablet Sublingual (NITROSTAT)Indicatio ns:Chest pain, unspecified type Place 1 Tab under the tongue as needed for Pain, Chest. May repeat 3 times. If chest pain continues, call 911. 66 Tab 11 05/31/2020 Active Pantoprazole Sodium 40 MG Oral Tablet Delayed Release (Protonix) Take 1 Tablet by mouth in the morning. 0 Active Apixaban 5 MG Oral Tablet (Eliquis)Indications :Acute CVA (cerebrovascular accident) (HCC),Paroxysmal atrial flutter (HCC) Take 1 Tablet by mouth in the morning and 1 Tablet before bedtime. 60 Tablet 11 01/26/2023 Active Simethicone 125 MG Oral Capsule Take 1 Capsule by mouth 2 times a day as needed. 0 Active Megestrol Acetate 20 MG Oral Tablet (Megace) Take 1 Tablet by mouth in the morning and 1 Tablet before bedtime. 0 02/09/2023 Active Metoprolol Succinate ER 25 MG Oral Tablet Extended Release 24 Hour (toPROL XL) Take 1 Tablet by mouth in the morning and 1 Tablet before bedtime. 0 Active Prochlorperazine Maleate 10 MG Oral Tablet [...] udenyca injection 60 Tablet 0 03/03/2023 Active documented as of this encounter (statuses as of 03/04/2023) Active Problems Problem Noted Date Encounter for [...] as of this encounter (statuses as of 03/04/2023) Resolved Problems Problem Noted Date Resolved Date Obesity, morbid (more than 1 00 lbs over ideal weight or BMI > 40) 01/08/2010 04/08/2019 Overview: Per Obesity Protocol, #19 ICD-10 update of inactive term Dyslipidemia, goal LDL below 100 09/15/2014 Obesity 04/08/2019 Overview: Per Obesity protocol documented as of this encounter (statuses as of 03/04/2023) Immunizations Name Administration Dates Next Due COVID-19 [...] Miscellaneous Notes * Telephone Encounter - ROMANA Cooper - 03/04/2023 12:16 PM EDT Spoke to patient Don to schedule the Mediport Insertion for 03/13 At [facility]. Patient identified by: name/birthdate Person taught: Patient's Don METHOD: Lecture-telephone interview Patient Preferred Learning Methods: Lecture-Telephone interview PATIENT INSTRUCTIONS GIVEN: - General Preoperative Instructions Reviewed - NPO Instructions Reviewed, pt to stop eating 8 hours prior to procedure and stop drinking 2 hoursprior to procedure. -Ground Crewman required Location and check-in instructions Verbalizes understanding of instructions The Patient's Don was given the opportunity to ask questions concerning the procedure. Signature: ROMANA Cooper 03/04/2023 documented in this encounter Plan of Treatment Upcoming Encounters Date Type Specialty Care Team Description 03/04/2023 Office Visit Palliative Medicine Mercedes Aranda MD [address] [place] [address] Palliative Medicine Outpatient Consult Note 03/04/2023 Laboratory Laboratory [place], Lab Scenery [address] [facility] [address] Malignant neoplasm of head of pancreas (HCC) 03/13/2023 Hospital Encounter Surgery Paul Krish, DO [address] [place] [address] 03/13/2023 Surgery Surgery Krish Miller, DO [address] [place] [address] INSERT TUNNELED CENTRAL VENOUS ACCESS WITH SUBQ PORT 03/20/2023 Office Visit Neurology Greer Davis PA-C [address] [place] [address] 04/29/2023 Office Visit Family Medicine Vanesa Solorzano, DO [address] [place] [address] 04/29/2023 Office Visit Gastroenterology Amberly Turner CRNP [address] [place] [address] 05/26/2023 Office Visit Gynecology [facility]cology [facility]in [facility]C [address] [facility] [address] Scheduled Procedures Name Priority Associated Diagnoses Date/Ti [...] 0309/2016, 09/09/2013, Additional history exists Diabetes Screening 02/18/2026 02/18/2023, 0 02/12/2023, 01/16/2023, Additional history exists Cervical Cancer Screening 01/31/2028 [...] filedocumented as of this encounter Care Teams Bobbin Washer Relationship Specialty Start Date End Date Vanesa Solorzano, [address] [facility] [address] PCP - General Family Medicine 09/21/18 documented as of this encounter
--- OUTSIDE RECORDS SUMMARY | 2023-04-06 06:17 | External Medical Summary ---
Author Name Unknown Address Unknown Organization K09:[facility] [place] [address] Laboratory Report Ordering Provider Test Date Status SYLWIA QUINTEROS 03/23/2023 07:29:12 Final Observation Date Value Abnormality Reference (Units ) Status SYNC LEUKOCYTES IN BLOOD BY AUTOMATED COUNT 03/23/2023 07:29:12 16.74 Above high normal 4.00-10.80 (K/uL) Final Segs 03/23/2023 07:29:12 84.0 Above high normal 40.0-75.0 (%) Final Lymphs % 03/23/2023 07:29:12 7.5 Below low normal 18.0-42.0 (%) Final Monos 03/23/2023 07:29:12 7.3 1.0-11.0 (%) Final Eosinophils 03/23/2023 07:29:12 1.0 0.0-6.0 (%) Final Basos 03/23/2023 07:29:12 0.2 0.0-2.0 (%) Final Absolute Segs 03/23/2023 07:29:12 14.05 Above high normal 1.80-7.70 (K/uL) Final Lymphs, absolute 03/23/2023 07:29:12 1.25 1.00-4.80 (K/ul) Final Monos, Abs 03/23/2023 07:29:12 1.23 Above high normal 0.00-1.10 (K/uL) Final Eos, Abs 03/23/2023 07:29:12 0.17 0.00-0.70 (K/uL) Final Basos, Abs 03/23/2023 07:29:12 0.04 0.00-0.20 (K/uL) Final Performing Location [facility] [address] [place] [address]
--- OUTSIDE RECORDS SUMMARY | 2023-04-06 06:17 | External Medical Summary | Summary of Care ---
Author Name Unknown Organization [facility] Address [address] [place] [address] Phone [phone] Care Team Providers Care Senior Controls Analyst Name Role Phone Vanesa Solorzano Primary Care Provider Reason for Visit * Reason Onset Date Comments Precert Future 02/18/2023 FOLFIRINOX Encounter Details Date Type Department Care Team Description 02/18/2023 Telephone Hematology/Oncology Treatment, [place] [address] [facility] [id number] Crescencio Rosales MD [address] [place] [address] Precert Future (FOLFIRINOX) Allergies No known active allergiesdocumented as of this encounter (statuses as of 03/05/2023) Medications Medication Sig Dispensed Refills Start Date End Date Status Nitroglycerin 0.3 MG Sublingual Tablet Sublingual (NITROSTAT)Indica tions:Chest pain, unspecified type Place 1 Tab under the tongue as needed for Pain, Chest. May repeat 3 times. If chest pain continues, call 911. 87 Tab 11 05/31/2020 Active Pantoprazole Sodium 40 [...] to proceed with chemotherapy. Consent signed 03/02/23. [facility] referral TE sent. Patient still needs mediport- not scheduled. Nurse education 03/03/23. Patient will need hep B labs. * Telephone Encounter - Ayana Carr RN - 02/18/2023 11:36 AM EDT Order received for FOLFIRINOX. [place] plan placed on hold- patient has appt with manager business intelligence/onc for endometrial cancer 02/18/23, also scheduled to see gen surg 02/24/23 to discuss surgical options. Patient is returning 03/11/[address] Rosales and decide on proceeding with chemotherapy. documented in this encounter Plan of Treatment Upcoming Encounters Date Type Specialty Care Team Description 03/11/2023 Scheduled Telephone Palliative Medicine [place], Nurse Palliative Medicine [address] [phone] 03/13/2023 Hospital Encounter Surgery Krish Miller, DO [address] [phone] 03/13/2023 Surgery Surgery Paul Krish, DO [address] [facility] [phone] INSERT TUNNELED CENTRAL VENOUS ACCESS WITH SUBQ PORT 03/20/2023 Office Visit Neurology Greer Davis PA-C [address] [place] [address] 03/25/2023 Office Visit Palliative Medicine Mercedes Aranda MD [address] [facility] [phone] 04/29/2023 Office Visit Family Medicine Vanesa Solorzano, DO [address] [place] [address] 04/29/2023 Office Visit Gastroenterology Amberly Turner, TYLER [address] [place] [address] 05/26/2023 Office Visit Gynecology Oncology Brayan Olguin PA-C [address] [place] [address] Scheduled Orders Name Type Priority Associated Diagnoses [...] LAB BLOOD ORDERA BLES Performing Organization Address [facility]/ZIP Co de Phone Number LABORATORY [facility] [address] [place] [address] * VITAMIN B12 (03/04/2023 12:37 PM EDT) Pathologist [facility] Vitamin B12 662 232 - 1,245 pg/mL 03/04/2023 10:23 PM EDT [facility]ORY [facility] Blood Venous blood specimen / Unknown Venipuncture / Unknown 03/04/2023 12:37 PM EDT 03/04/2023 12:37 PM EDT Crescencio Rosales MD LAB BLOOD ORDERA BLES Performing Organization Address [facility] de Phone Number LABORATORY [facility] [address] [place] [address] * IRON SCREEN, INCLUDING TIBC (03/04/2023 12:37 PM EDT) Pathologist [facility] Iron 39 33 - 151 ug/dL 03/04/2023 11:52 PM EDT LABORATORY [facility] Iron Binding Capacity 262 250 - 425 ug/dL 03/04/2023 11:52 PM EDT LABORATORY C Transferrin Saturation Percent 15 15 - 55 % 03/04/2023 11:52 PM EDT [facility]ORY [facility] Blood Venous blood specimen / Unknown Venipuncture / Unknown 03/04/2023 12:37 PM EDT 03/04/2023 12:37 PM EDT Crescencio Rosales MD LAB BLOOD ORDERA BLES Performing Organization Address [facility] Co de Phone Number LABORATORY [facility] [address] [place] [address] * (ABNORMAL) FERRITIN (03/04/2023 12:37 PM EDT) Pathologist [facility] Ferritin 542(H) 13 - 150 ng/mL 03/04/2023 10:23 PM EDT LAB[facility]ORY [facility] Comment: Postmenopausal women have higher ferritin levels [...] LAB BLOOD ORDERA BLES Performing Organization Address [facility] Co de Phone Number LABORATORY [place] [address] [place] [address] * HEPATITIS B CORE ANTIBODIES IGG AND IGM (03/04/2023 12:37 PM EDT) Hepatitis B Core Antibodies IgG and IgM Negative Negative 03/04/2023 10:50 PM EDT LABORATORY [facility] Blood Venous blood specimen / Unknown Venipuncture / Unknown 03/04/2023 12:37 PM EDT 03/04/2023 12:37 PM EDT Crescencio Rosales MD LAB BLOOD ORDERA BLES Performing Organization Address [facility] Co de Phone Number LABORATORY [place] [address] [place] [address] * HEPATITIS B SURFACE ANTIGEN (03/04/2023 12:37 PM EDT) Hepatitis B Surface Antigen Negative Negative 03/04/2023 10:50 PM EDT LABORATORY [facility] Blood Venous blood specimen / Unknown Venipuncture / Unknown 03/04/2023 12:37 PM EDT 03/04/2023 12:37 PM EDT Crescencio Rosales MD LAB BLOOD ORDERA BLES Performing Organization Address City/[facility] Co de Phone Number LABORATORY [facility] [address] [place] [address] * HEPATITIS B SURFACE ANTIBODY (03/04/2023 12:37 PM EDT) Pathologist [facility] Hepatitis B Surface Antibody, Quantitative <3.5 mIU/mL 03/04/2023 10:50 PM EDT LAB[facility]ORY [facility] Hepatitis B Surface Antibody, Qualitative Negative 03/04/2023 10:50 PM EDT LAB[facility]ORY [facility] Hepatitis B Surface Antibody, Interpretation NOT immune to Hepatitis B Virus 03/04/2023 10:50 PM EDT LAB[facility]ORY [facility] Comment: POSITIVE: >=11.5 mIU/mL INDETERMINATE: 8.5-<11.5 mIU/mL NEGATIVE: <8.5 mIU/mL Blood Venous blood specimen / Unknown Venipuncture / Unknown 03/04/2023 12:37 PM EDT 03/04/2023 12:37 PM EDT Crescencio Rosales MD LAB BLOOD ORDERA BLES Performing Organization Address City/State/[facility] Co de Phone Number LABORATORY [facility] [address] [place] [address] * (ABNORMAL) COMPREHENSIVE METABOLIC PANEL (03/04/2023 12:37 PM EDT) Pathologist [facility] BUN 7 6 - 20 mg/dL 03/04/2023 1:05 PM EDT [facility] 56-02 Creatinine 0.8 0.5 - 1.0 mg/dL 03/04/2023 1:05 PM EDT [facility] 56-02 Comment:The above reference range is based on the legal sex of the patient only. Results should be interpreted together with patient's sex at , gender identity, and clinical context. Estimated Glomerular Filtration Rate 87 >=60 mL/min 03/04/2023 1:05 PM EDT [facility] 56-02 Comment:eGFR is calculated b ased on the legal sex of the patient, using the CKD- EPI 2020 equation Sodium 135 135 - 146 mmol/L 03/04/2023 1:05 PM EDT [facility] 56-02 Potassium 4.0 3.5 - 5.1 mmol/L 03/04/2023 1:05 PM EDT [facility] 56- Chloride 100 98 - 107 mmol/L 03/04/2023 1:05 PM EDT [address] CO2 22 22 - 32 mmol/L 03/04/2023 1:05 PM EDT [address] Anion Gap 13 7 - 15 mmol/L 03/04/2023 1:05 PM EDT [address] Glucose 175(H) 70 - 120 mg/dL 03/04/2023 1:05 PM EDT [address] Albumin 4.2 3.8 - 5.0 g/dL 03/04/2023 1:05 PM EDT [address] AST 21 10 - 35 U/L 03/04/2023 1:05 PM EDT [address] Alkaline Phosphatase 102 35 - 130 U/L 03/04/2023 1:05 PM EDT [address] Bilirubin, Total 0.8 <=1.2 mg/dL 03/04/2023 1:05 PM EDT [address] Calcium 10.3(H) 8.4 - 10.2 mg/dL 03/04/2023 1:05 PM EDT [address] Protein 7.5 6.0 - 8.3 g/dL 03/04/2023 1:05 PM EDT [address] ALT 16 10 - 35 U/L 03/04/2023 1:05 PM EDT [address] Blood Venous blood specimen / Unknown Venipuncture / Unknown 03/04/2023 12:37 PM EDT 03/04/2023 12:37 PM EDT Crescencio Rosales MD LAB BLOOD ORDERA BLES [facility] [address] [place] [address] documented in this encounter Visit Diagnoses Diagnosis 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
--- OUTSIDE RECORDS SUMMARY | 2023-04-06 06:17 | External Medical Summary | Summary of Care ---
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 OK for virtual. Please try to see ZACHARIAH if you can! Reason for Visit * Reason Comments NEW PATIENT * Evaluate & Treat - Unlimited Visits (Within 10 days (routine)) - Pending Review Specialty Diagnoses / Procedures Referred By Todd young Referred To Contact Hospice and Palliative Medicine / Palliative Medicine Diagnoses Malignant neoplasm of head of pancreas (HCC) Crescencio Rosales MD [address] [place] [address] Referral ID Status Reason Start Date Expiration Date Visits Requested Visits Authorized [id number] Pending Review Specialty Services Required 02/17/[phone] Encounter Details Date Type Department Care Team Description 03/04/2023 Office Visit Palliative Medicine [facility] [address] [facility] [address] Mercedes Aranda MD [address] [facility] [place] [address] Malignant neoplasm of head of pancreas (HCC)*; Anxiety disorder due to medical condition; Cancer related pain; Palliative care encounter Allergies No known active allergiesdocumented as of this encounter (statuses as of 03/04/2023) Medications Medication Sig Dispensed Refills Start Date End Date Status Nitroglycerin 0.3 MG Sublingual Tablet Sublingual (NITROSTAT)Indic ations:Chest pain, unspecified type Place 1 Tab under the tongue as needed for Pain, Chest. May repeat 3 times. If chest pain continues, call 911. 25 Tab 11 05/31/2020 Active Pantoprazole Sodium 40 MG Oral Tablet Delayed Release (Protonix) Take 1 Tablet by mouth in the morning. 0 Active Apixaban 5 MG Oral Tablet (Eliquis)Indicat ions:Acute CVA (cerebrovascular accident) (HCC),Paroxysmal atrial flutter (HCC) [...] Active Prochlorperazine Maleate 10 MG Oral Tablet (Compazine)Indic ations: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 30 Tablet 0 03/02/2023 Active Ondansetron HCl 8 MG Oral TabletIndication s:Malignant neoplasm of head of pancreas (HCC) Take 1 Tablet by mouth every 8 hours as needed for Nausea. 30 Tablet 0 03/02/2023 Active Lidocaine-Priloc malena 2.5-2.5 % External Cream (Emla)Indication s:Malignant neoplasm of head of pancreas (HCC) APPLY TO SKIN OVER MEDIPORT & COVER 1HR PRIOR TO ACCESSING. 30 g 1 03/03/2023 Active Loratadine 10 MG Oral Tablet (Claritin)Indica tions:Malignant neoplasm of head of pancreas (HCC) Take 1 tablets for 5 days each chemo cycle, starting the day BEFORE udenyca injection 60 Tablet 0 03/03/2023 Active oxyCODONE-Acetam inophen 5-325 MG Oral Tablet (Percocet)Indica tions:Malignant neoplasm of head of pancreas (HCC) Take 1 Tablet by mouth every 4 hours as needed for Pain, Severe. 15 Tablet 0 03/04/2023 Active Acetaminophen 500 MG Oral Tablet (Tylenol Extra Strength)Indicat ions:Malignant neoplasm of head of pancreas (HCC) Take 2 Tablets by mouth in the morning and 2 Tablets at noon and 2 Tablets in the evening. 120 Tablet 0 03/04/2023 Active Mirtazapine 15 MG Oral Tablet (Remeron)Indicat ions:Anxiety disorder due to medical condition Take 1 Tablet by mouth at bedtime. 30 Tablet 0 03/04/2023 Active busPIRone HCl 10 MG Oral Tablet (Buspar)Indicati ons:Anxiety disorder due to medical condition Take 1 Tablet by mouth 3 times a day as needed (Anxiety). 90 Tablet 0 03/04/2023 Active Simethicone 125 MG Oral CapsuleIndicatio ns:Malignant neoplasm of head of pancreas (HCC) Take 1 Capsule by mouth 3 times a day as needed (Gas). 90 Capsule 3 03/04/2023 Active TYLENOL 325 MG PO TABS uses as needed 0 03/04/20 23 Discontinued Simethicone 125 MG Oral Capsule Take 1 Capsule by mouth 2 times a day as needed. 0 03/04/20 23 Discontinued(Ref ill) documented as of this encounter (statuses as [...] Date Smoking Tobacco: Never Smokeless Tobacco: Never Tobacco Cessation:Counseling Given: Not Answered Alcohol Use Standard Drinks/Week Comments Yes 0 (1 standard drink = 0.6 oz pur e alcohol) Occasionally Sex Assigned at Date Recorded Female 01/30/2023 8:46 AM E DT Job Start Date Occupation Industry Not on file Not on file Not on file documented as of this encounter Last Filed Vital Signs Vital Sign Reading Time Taken Comments Blood Pressure - - Pulse 79 03/04/2023 12:53 PM EDT Temperature 36.7 C (98 F) 03/04/2023 12:53 PM EDT Respiratory Rate 18 03/04/2023 12:53 PM EDT Oxygen Saturation 98% 03/04/2023 12:53 PM EDT Inhaled Oxygen Concentration - - Weight - - Height - - Body Mass Index - - documented in this encounter Patient Instructions * Patient Instructions* Caren Becker LPN - 03/04/2023 12:32 PM EDT Our Palliative Medicine Clinic is available Thursday through Thursday during business hours, so we are unavailable on weekends and holidays. Please ensure that you request refills early in the week as itmay take 1-2 days for them to be addressed and filled, for authorizations to be approved, or for the pharmacy to order them if needed. You can contact our office at [phone], which is our clinic in [place], or you can message us on [employer]. If you have an emergency outside of these hours, we recommend calling your primary care clinic, Oncology office, or going to the ER if you have a medical emergency. documented in this encounter Progress Notes * Mercedes Aranda MD - 03/04/2023 1:00 PM EDT Palliative Medicine Outpatient Consult Note [facility] Palliative Medicine Outreach [address] [place] [address] Name: Jacque Spivey Date: 03/04/2023 Referring Provider: Vanesa Solorzano DO Reason for Consult: Goals of care; Pain and symptom management Patient accompanied by You and son George, history obtained from patient and HPI: Jacque Spivey is a 62 year old adult with a primary diagnosis of pancreatic CA, along w/recent dx of CVA and endometrial CA. Plan is to start Folfirinox. Pt v emotional over everything. Saw Dr Steiner - who said this is not resectable Also saw EQUITY DIRECTOR and had an IUD placed to stop bleeding, has f/u in fall for another potential biopsy but unsure if she would need it by then Reports biggest issue is gas in the stomach - belches right after eating, knows that the tumor is pressing on the stomach / intestines so blocking things. Belches just gas but not food. At dinner feels v full so not eating much, if does eat, feels full v quickly. If something does taste good, its smaller portions but feels uncomfortable after. Takes Gas-Ex BID, but then next 30 min is belching. Pain is mostly a discomfort more in lower abdomen, below belly button. Pain is most of the time, not taking pain medications. Bowels seem to move OK, went yesterday morning. Eating a lot of fruit. Pts mother is 88yo, and caring for patient. Lives with everyone. Shes in good health. Anxious over port placement, because in the past she was admitted and her arm turned black / blue given the IV ruptured, and she couldn't feel the button to ring for the nurse. Palliative symptoms: Nausea/Vomiting: no Constipation: no Confusion: no Somnolence: no - feels her sleep quality is poor but up a lot in the day since she cant do much Dyspnea: no Mood: anxious about everything going on Other: None ROS: See HPI. All other systems negative. Functional Status: - Palliative Performance Scale: 60% Patient Active Problem List Diagnosis Code Obesity, morbid, BMI 40.0-49.9 (HCC) E66.01 Acute CVA (cerebrovascular accident) (HCC) I63.9 Anxiety F41.9 Elevated troponin R77.8 Genetic carrier status Z14.8 Intermittent abdominal pain R10.9 Paroxysmal atrial flutter (HCC) I48.92 SVT (supraventricular tachycardia) (HCC) I47.1 Weakness R53.1 Acute left hemiparesis (HCC) G81.94 Endometrial cancer (HCC) C54.1 Pancreatic cancer (HCC) C25.9 Encounter for antineoplastic chemotherapy Z51.11 Past Surgical History: Procedure Laterality Date COLONOSCOPY, DIAGNOSTIC (RECTUM) 11/15/2013 perianal and digital rectal exam normal, severe stenosis found at 35 cm proximal to the anus and was non-transversed, stricture at 35 cm in colon, CT scan abd/pelvis/COLONOSCOPY FLEXIBLE PROXIMAL DIAGNOSTIC performed by You Gregory MD at ENDOSCOPY [facility] COLONOSCOPY, DIAGNOSTIC (RECTUM) 03/09/2014 COLONOSCOPY FLEXIBLE PROXIMAL DIAGNOSTIC performed by Susu Whittington MD at ENDOSCOPY [facility] LIGATE/CUT OVIDUCT(S) MAMMOGRAM - 1 BREAST 02/13/04 wnl per [facility]-see scan MAMMOGRAM - 1 BREAST 1/31/05 [facility] per [facility]09 wn- REMOVAL OF APPENDIX 1975 Family History Problem Relation Age of Onset Hyperlipidemia Mother Osteoporosis Mother Prostate cancer Father Stroke Brother Heart attack Brother Diabetes Brother Hypertension Brother Breast Cancer Grandmother (Paternal) Family Status Relation Status Mo Alive Fa at age 68 Bro (Not Specified) Bro (Not Specified) PGMA Social History Socioeconomic History Marital status: Spouse name: You Number of children: 2 Occupational History Occupation: [employer] Employer: [employer] Comment: [employer] Occupation: [employer] Comment: 2009 Tobacco Use Smoking status: Never Smokeless tobacco: Never Substance and Sexual Activity Alcohol use: Yes Comment: Occasionally Drug use: No Sexual activity: Yes Partners: Male control/protection: Surgical Comment: BTL Social History Narrative Working at [employer]. Son George, and living with her. And . 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 May repeat 3 times. If chest pain continues, call 911. 25 Tab 11 Pantoprazole Sodium 40 MG Oral Tablet Delayed Release (Protonix) Take 1 Tablet by mouth in the morning. (Patient not taking: Reported on 03/02/2023) Apixaban 5 MG Oral Tablet (Eliquis) Take 1 Tablet by mouth in the morning and 1 Tablet before bedtime. 60 Tablet 11 Simethicone 125 MG Oral Capsule Take 1 Capsule by mouth 2 times a day as needed. Megestrol Acetate 20 MG Oral Tablet (Megace) Take 1 Tablet by mouth in the morning and 1 Tabletbefore bedtime. Metoprolol Succinate ER 25 MG Oral Tablet Extended Release 24 Hour (toPROL XL) Take 1 Tablet bymouth in the morning and 1 Tablet before bedtime. Prochlorperazine Maleate 10 MG Oral Tablet (Compazine) Take 1 Tablet by mouth every 6 hours as needed for Nausea. 30 Tablet 0 Ondansetron HCl 8 MG Oral Tablet Take 1 Tablet by mouth every 8 hours as needed for Nausea. 30 Tablet 0 Lidocaine-Prilocaine 2.5-2.5 % External Cream (Emla) APPLY TO SKIN OVER MEDIPORT & COVER 1HR PRIOR TO ACCESSING. 30 g 1 Loratadine 10 MG Oral Tablet (Claritin) Take 1 tablets for 5 days each chemo cycle, starting the day BEFORE udenyca injection 60 Tablet 0 No current facility-administered medications for this visit. Allergies: Patient has no known allergies. PHYSICAL EXAMINATION: Constitutional: Pulse 79 | Temp 36.7 C (98 F) | Resp 18 | LMP (LMP Unknown) | SpO2 98% , no acute distress, chronically ill, pleasant and cooperative, breathing ambient air comfortably HENT: normocephalic, atraumatic. Eyes: anicteric, sclera and conjunctiva normal. Neck: no stridor Chest: normal respiratory effort Abdominal: nondistended Extremities: no edema, no clubbing, no cyanosis Neuro: alert, oriented to person, place, and time Psych: normal mood and affect Data Review: External notes reviewed: Hem onc, Surgical onc notes all reviewed Lab / Imaging Results: Cr 0.8, normal, Albumin 4.8 History obtained from: pt and Discussion with other team members: d/w Hem onc staff Decision-making Capacity: Does Patient have Decisional Capacity? y Does Patient have a Healthcare Agent? Y, Advanced Care Planning: Deferred ASSESSMENT/PLAN: Jacque Spivey is a/an 62 year old adult referred for consultation to Palliative Medicine with the primary diagnosis of: 1. Pancreatic CA, unresectable 2. Endometrial CA 3. Opioid induced constipation 4. Dyspepsia 5. Anxiety due to medical illness 6. Goals of care - try chemo and see how things go Recommendations: 1. Pt agreeable to get port placed (v anxious about pain during procedure) and then trial of chemotherapy. 2. Will place Onc therapy referral, pt has a lot of trauma and anxiety over her mother as well 3. For mood will add mirtazapine 15mg qHS, with Buspar 10mg TID PRN in daytime 4. Change Simethicone to TID PRN 5. For pain, she prefers to use Tylenol given concern over addiction. Reviewed addiction vs cancer related pain. Will send in Percocet x 10 tab for her to have on hand just in case of severe pain. a. I have reviewed the patients controlled substance dispensing history in the Prescription DrugMonitoring Program in compliance with the [facility] regulations before prescribing a controlled substance. 6. For bowels, ensure regular BMs 7. Will have nurse visit in 1 week and then f/u at [facility] in future Thank you for this consult. We appreciate the opportunity to take part in the care of your patient. Note routed back to referring provider and PCP. I spent a total of 62 min on the date of service in preparation, delivery, and documentation of thecare provided to Jacque Spivey excluding any time spent in the performance of separately billed services. Mercedes Aranda MD Palliative Medicine Physician [facility] Office: [phone] 03/04/2023 * Caren Becker LPN - 03/04/2023 12:50 PM EDT NEW Palliative Visit Pain: in stomach-not really a pain but more of a discomfort/nausea No recent vomiting Has a lot of gas-takes simethicone-constantly burping Last BM: today. No issues Has trouble sleeping d/t having to get up to the bathroom several times a night Patient very tearful Other issues: Goals of Care documented in this encounter Plan of Treatment Upcoming Encounters Date Type Specialty Care Team Description 03/04/2023 Laboratory Laboratory [place], Lab Scenery [address] [place], [place] [address] Malignant neoplasm of head of pancreas (HCC) 03/13/2023 Hospital Encounter Surgery Krish Miller DO [address] [place] [address] 03/13/2023 Surgery Surgery Krish Miller DO [address] [place] [address] INSERT TUNNELED CENTRAL VENOUS ACCESS WITH SUBQ PORT 03/20/2023 Office Visit Neurology rGeer Davis PA-C [address] [place] [id number] 03/25/2023 Office Visit Palliative Medicine Mercedes Aranda MD [address] [facility] [place] [id number] 04/29/2023 Office Visit Family Medicine Vanesa Solorzano DO [address] [place] [address] 04/29/2023 Office Visit Gastroenterology Amberly Turner CRNP [address] [facility] [place] [address] 05/26/2023 Office Visit Gynecology Oncology Brayan Olguin PA-C [address] [place] [address] Scheduled Procedures Name Priority Associated Diagnoses Date/Ti me INSERT TUNNELED CENTRAL VENOUS ACCESS WITH SUBQ PORT Malignant neoplasm of head of pancreas (HCC) 03/13/2023 12:03 PM EDT Scheduled Referrals Name Type Priority Associated Diagnoses Orde r Schedule ONCOLOGY BEHAVIORAL HEALTH REFERRAL OP Referral Within 3 days (urgent) Malignant neoplasm of head of pancreas (HCC) Ordered: 03/04/2023 Health Maintenance Due Date Last Done Comments [...] Not on filedocumented as of this encounter Visit Diagnoses Diagnosis Malignant neoplasm of head of pancreas (HCC)- Primary Malignant neoplasm of head of pancreas Anxiety disorder due to medical condition Anxiety disorder in conditions classified elsewhere Cancer related pain Neoplasm related pain (acute) (chronic) Palliative care encounter Encounter for palliative care Malignant neoplasm of head of pancreas (HCC) Malignant neoplasm of head of pancreas Malignant neoplasm of head of pancreas (HCC) Malignant neoplasm of head of pancreas documented in this encounter Care Teams Occupational Therapist Assistants Relationship Specialty Start Date End Date Vanesa Solorzano, [address] [place] [address] PCP - General Family Medicine 09/21/18 documented as of this encounter"
--- OUTSIDE RECORDS SUMMARY | 2023-04-06 06:17 | External Medical Summary | Summary of Care ---
Author Name Unknown Organization [facility] Address [address] [place] [address] Phone [phone] Care Team Providers Care Armhole Baster Hand Name Role Phone Vanesa Solorzano Primary Care Provider Reason for Visit * Reason Onset Date Comments Medication Refill 03/06/2023 Encounter Details Date Type Department Care Team Description 03/06/2023 Refill Hematology/Oncology Treatment, [place] [address] [facility] [place] [address] Crescencio Rosales MD [address] [place] [address] Malignant neoplasm of head of pancreas (HCC) [...] Telephone Palliative Medicine Fl, Nurse Palliative Medicine [facility] [address] [address] [place] [id number] 03/13/2023 Hospital Encounter Surgery Krish Miller, DO [address] [place] [id number] 03/13/2023 Surgery Surgery JohnmaguiKrish, DO [address] [place] [id number] INSERT TUNNELED CENTRAL VENOUS ACCESS WITH SUBQ PORT 03/20/2023 Office Visit Neurology Greer Davis PA-C [address] [place] [address] 03/23/2023 Laboratory Laboratory [place], Lab Scenery [address] [place] [address] 03/24/2023 Hem/Onc Treatment Hematology Oncology [place], Chair 5 Hem Onc Scenery [address] [place] [address] 03/25/2023 Office Visit Palliative Medicine Mercedes Aranda MD [address] [place] [phone] 04/29/2023 Office Visit Family Medicine Vanesa Solorzano, DO [address] [place] [address] 04/29/2023 Office Visit Gastroenterology Amberly Turner, TYL[place] [address] [place] [address] 05/26/2023 Office Visit Gynecology Oncology Brayan Olguin PA-C [address] [facility] [place] [address] Scheduled Procedures Name Priority Associated Diagnoses Date/Ti [...] pancreas documented in this encounter Care Teams Armhole Baster Hand Relationship Specialty Start Date End Date Vanesa Solorzano, DO [address] [place], [place] [phone] PCP - General Family Medicine 09/21/18 documented as of this encounter
--- OUTSIDE RECORDS SUMMARY | 2023-04-06 06:17 | External Medical Summary | Summary of Care ---
Author Name Unknown Organization [facility] Address [address] [place] [address] Phone [phone] Care Team Providers Care Head Machine Feeder Name Role Phone Vanesa Solorzano Primary Care Provider Reason for Visit * Auth/Cert Specialty Diagnoses / Procedures Referred By Todd t Referred To Contact Diagnoses Malignant neoplasm of head of pancreas (HCC) Malignant neoplasm of head of pancreas (HCC) [C25.0] Procedures INSER TUNN ACC DEV;5 YRS/OLDER INSERT TUNNELED CENTRAL VENOUS ACCESS WITH SUBQ PORT Referral ID Status Reason Start Date Expiration Date Visits Re quested Visits Authorized [id number] Encounter Details Date Type Department Care Team Description 03/13/2023 Hospital Encounter OR [facility], Operating Room, [facility] - 4th Floor [address] [place] [address] Krish Miller DO [address] [place] [address] Allergies No known active allergiesdocumented as of this encounter (statuses as of 03/14/2023) Medications Medication Sig Dispensed Refills Start Date End Date Status Nitroglycerin 0.3 MG Sublingual Tablet Sublingual (NITROSTAT)Indicati ons:Chest pain, unspecified type Place 1 Tab under the tongue as needed for Pain, Chest. May repeat 3 times. If chest pain continues, call 911. 25 Tab 11 05/31/2020 Active Additional Information Patient [...] as of this encounter (statuses as of 03/14/2023) Active Problems Problem Noted Date Encounter for [...] as of this encounter (statuses as of 03/14/2023) Resolved Problems Problem Noted Date Resolved Date Obesity, morbid (more than 1 00 lbs over ideal weight or BMI > 40) 01/08/2010 04/08/2019 Overview: Per Obesity Protocol, #19 ICD-10 update of inactive term Dyslipidemia, goal LDL below 100 09/15/2014 Obesity 04/08/2019 Overview: Per Obesity protocol documented as of this encounter (statuses as of 03/14/2023) Immunizations Name Administration Dates Next Due COVID-19 [...] Sign Reading Time Taken Comments Blood Pressure 107/72 03/13/2023 1:27 PM EDT Pulse 98 03/13/2023 1:27 PM EDT Temperature 36.4 C (97.5 F) 03/13/2023 1:27 PM ED T Respiratory Rate 18 03/13/2023 1:27 PM EDT Oxygen Saturation 95% 03/13/2023 1:27 PM EDT Inhaled Oxygen Concentration - - Weight 108.9 kg (240 lb) 03/13/2023 10:45 AM EDT Height 162.6 cm (5' 4.02") 03/13/2023 10:45 AM E DT Body Mass Index 41.18 03/13/2023 10:45 AM EDT documented in this encounter Discharge Instructions * Discharge Instr - AVS* Krish Miller DO - 03/13/2023 10:56 AM EDT Discharge Date: 03/13/2023 Provider: Dr. Krish Miller If you are experiencing any problems related to your procedure, please contact Interventional Radiology at [phone] during normal business hours: Thursday - Thursday, 8:00 am - 4:00 pm. If a problem occurs outside of normal business hours, please call the hospital radio control crane operator at [phone] and ask for the Interventional Radiologist construction contractor. Contact scheduling for Interventional Radiology at [phone] during normal business hours: Thursday - Thursday, 8:00 am - 4:00 pm. The information below provides you with the instructions and the list of medications you need to betaking following discharge from the hospital. If you have any questions, please ask before leaving.Please carry this letter with you when you see your doctor in the clinic. If you have questions, you can reach us at the numbers above. SPECIAL INSTRUCTIONS Mediport Insertion (Implanted Central Venous Access) A Mediport is a sealed chamber covered by a silicone disc that is surgically placed in a pocket under the skin on the upper chest, just below the collarbone. This chamber connects to a flexible tube that goes into a large vein in the neck. The tip is near the heart. The port provides direct access to the bloodstream and can be used in drawing blood samples and giving intravenous fluids and medications. Some ports allow CT scan injections; these ports are referred to as "Power Ports." The port will be visible only as a small raised area beneath your skin. Home Care If you experience pain or discomfort at the site you may use a cold pack on the site and/or take acetaminophen (Tylenol) or your preferred pain medicine as directed. Avoid contact sports or any activity that may cause blunt force impact to the port area, as it may damage your port. Avoid strenuous activity for 24 to 48 hours after the procedure. Do not lift anything heavier than 10 pounds for 3 days after the procedure. Gradually increase your activity after 24 to 48 hours after the procedure. No dressing changes or wound care are needed at the insertion site. Your wound is closed with sutures on the inside and then sealed on the outside with a special "skin glue" called Dermabond (a surgical glue). Depending on your physician's preference, there may also be "steri strips" applied. It isvery important to let these special bandages fall off on their own. Please do not scrub or pull these bandages off. You may gently wash the area with soap and water. Depending on your physician's preference, there may also be gauze and Tegaderm (clear) bandage overthe Mediport insertion site. You may remove this bandage in 24 hours. You may shower in 24 hours. Gently wash the area and pat it dry. Please DO NOT take a bath, soak in a hot tub, or swim until the wound is completely healed. Your port must be accessed and flushed/heparinized every 30 days if it is not currently being used. When to Call Interventional Radiology Call Interventional Radiology right away if you have any of the following: Fever above 100 degrees Fahrenheit Increased bleeding, redness, swelling, warmth, or discharge at the incision site. Constant or increasing pain, numbness, coldness, or tingling around the incision area. Vomiting or nausea that does not go away If at any time you experience any of the following or feel you are having a medical emergency, slet058 for emergency assistance. Chest Pain Sudden, severe shortness of breath Rapid heart rate Sudden onset of weakness Do not smoke or use tobacco products in any way! If you feel suicidal or homicidal, please call the crisis hotline at [phone] ([phone]) MODERATE SEDATION You may have received medication that made you comfortable/sedated you during your procedure. This is considered moderate sedation. This medication was given to relax you. You may also not remember having the procedure done. It may take up to 24 hours for this medication to be out of your system. Because of this, you should observe the following for the next 24 hours: Do not drink alcohol or take depressant drugs. Do not operate any type of machinery that requires hand-eye coordination. Do not sign any legal papers or documents. Do not make any financial decisions. You should be in the presence of an adult for the remainder of the day. If you are experiencing any problems related to your procedure, you should contact the Interventional Radiology physician unless otherwise directed. Driving: You may resume driving after 24 hours, as you were prior to the procedure . Diet: You may resume your current diet as tolerated. Return to work or school: You may return to school or work 24 hours after the procedure, unless otherwise instructed by the physician. documented in this encounter Progress Notes * Krish Miller DO - 03/13/2023 12:47 PM EDT [address] [address] OUTPATIENT SURGERY DISCHARGE SUMMARY NOTE Name: Jacque Spivey Location: OR [facility]/OR Date: 03/13/2023 Time: 12:47 PM Surgery Date: 03/13/2023 Procedure: Procedure(s): INSERT TUNNELED CENTRAL VENOUS ACCESS WITH SUBQ PORT Right Surgeon: Surgeon(s): Krish Miller DO Discharge Diagnosis: Pancreatic cancer After examination of this patient, I have determined Jacque Spivey is ready for discharge to home when the patient meets criteria. Discharge instructions were given to the patient. documented in this encounter H&P Notes * Krish Miller DO - 03/13/2023 11:29 AM EDT HISTORY & PHYSICAL - Vascular and Interventional Radiology Name: Jacque Spivey Location: DATE OF H&P: 03/13/23 HISTORY OF PRESENT ILLNESS: Jacque Spivey is a 62 year old adult with pancreatic cancer presenting for medical port insertion.Patient denies chest pain, shortness of breath, fever, chills. Past Medical History: Diagnosis Date Acute CVA (cerebrovascular accident) ([facility]) 01/26/2023 Acute left hemiparesis ([facility]) 01/26/2023 Anxiety 01/26/2023 Dyslipidemia, goal LDL below 130 Gestational hypertension Obesity, morbid, BMI 40.0-49.9 ([facility]) 04/04/2019 Per Obesity protocol Other screening mammogram 03/10/2005 wnl per [facility] at Paroxysmal atrial flutter ([facility]) 01/26/2023 SVT (supraventricular tachycardia) ([facility]) 01/26/2023 Past Surgical History: Procedure Laterality Date COLONOSCOPY, DIAGNOSTIC (RECTUM) 11/15/2013 perianal and digital rectal exam normal, severe stenosis found at 35 cm proximal to the anus and was non-transversed, stricture at 35 cm in colon, CT scan abd/pelvis/COLONOSCOPY FLEXIBLE PROXIMAL DIAGNOSTIC performed by You Gregory MD at ENDOSCOPY [facility] COLONOSCOPY, DIAGNOSTIC (RECTUM) 03/09/2014 COLONOSCOPY FLEXIBLE PROXIMAL DIAGNOSTIC performed by Susu Whittington MD at ENDOSCOPY [facility] LIGATE/CUT OVIDUCT(S) MAMMOGRAM - 1 BREAST 02/13/04 [facility]nl per [facility]-see scan MAMMOGRAM - 1 BREAST 08/26/04 [facility] per [facility] MAMMOGRAM - BILATERAL 03/14/08 [facility] MAMMOGRAM SCREENING BILATERAL 05/07/09 [facility] REMOVAL OF APPENDIX 1975 Social History Socioeconomic History Marital status: Spouse name: You Number of children: 2 Years of education: Not on file Highest education level: Not on file Occupational History Occupation: [employer] Employer: [employer] Comment: [employer] Occupation: [employer] Comment: 2009 Tobacco Use Smoking status: Never Smokeless tobacco: Never Substance and Sexual Activity Alcohol use: Yes Comment: Occasionally Drug use: No Sexual activity: Yes Partners: Male control/protection: Surgical Comment: BTL Other Topics Concern Not on file Social History Narrative Working at [employer]. Son George, and living with her. And . Social Determinants of Health Financial Resource Strain: Not on file Food Insecurity: Unknown Worried About Running Out of Food in the Last Year: Patient refused Ran Out of Food in the Last Year: Patient refused Transportation Needs: Not on file Physical Activity: Not on file Stress: Not on file Social Connections: Not on file Intimate Partner Violence: Not on file Housing Stability: Not on file Family History Problem Relation Age of Onset Hyperlipidemia Mother Osteoporosis Mother Prostate cancer Father Stroke Brother Heart attack Brother Diabetes Brother Hypertension Brother Breast Cancer Grandmother (Paternal) Review of patient's allergies indicates: No Known Allergies Current Facility-Administered Medications Medication Dose Route Frequency Provider Last Rate Last Admin isolyte-S pH 7.4 infusion Intravenous Continuous Krish Massak, DO 10 mL/hr at 03/13/23 1054 New Bag at 03/13/23 1054 Prior to Admission medications Medication Sig Last Dose Discont. Acetaminophen 500 MG Oral Tablet (Tylenol Extra Strength) Take 2 Tablets by mouth in the morning and 2 Tablets at noon and 2 Tablets in the evening. 03/12/2023 Simethicone 125 MG Oral Capsule Take 1 Capsule by mouth 3 times a day as needed (Gas). 03/12/2023 Megestrol Acetate 20 MG Oral Tablet (Megace) Take 1 Tablet by mouth in the morning and 1 Tablet before bedtime. 03/13/2023 Metoprolol Succinate ER 25 MG Oral Tablet Extended Release 24 Hour (toPROL XL) Take 1 Tablet by mouth in the morning and 1 Tablet before bedtime. 03/13/2023 busPIRone HCl 10 MG Oral Tablet (Buspar) Take 1 Tablet by mouth 3 times a day as needed (Anxiety). 03/13/2023 Mirtazapine 15 MG Oral Tablet (Remeron) Take 1 Tablet by mouth at bedtime. 03/12/2023 Apixaban 5 MG Oral Tablet (Eliquis) Take 1 Tablet by mouth in the morning and 1 Tablet before bedtime. 03/12/2023 Pantoprazole Sodium 40 MG Oral Tablet Delayed Release (Protonix) Take 1 Tablet by mouth in the morning. 03/12/2023 oxyCODONE-Acetaminophen 5-325 MG Oral Tablet (Percocet) Take 1 Tablet by mouth every 4 hours as needed for Pain, Severe. Patient not taking: Reported on 03/13/2023 Not Taking Lidocaine-Prilocaine 2.5-2.5 % External Cream (Emla) APPLY TO SKIN OVER MEDIPORT & COVER 1HR PRIOR TO ACCESSING. Patient not taking: Reported on 03/13/2023 Not Taking Loratadine 10 MG Oral Tablet (Claritin) Take 1 tablets for 5 days each chemo cycle, starting the day BEFORE udenyca injection Patient not taking: Reported on 03/13/2023 Not Taking Ondansetron HCl 8 MG Oral Tablet Take 1 Tablet by mouth every 8 hours as needed for Nausea. Patient not taking: Reported on 03/13/2023 Not Taking Prochlorperazine Maleate 10 MG Oral Tablet (Compazine) Take 1 Tablet by mouth every 6 hours as needed for Nausea. Patient not taking: Reported on 03/13/2023 Not Taking Nitroglycerin 0.3 MG Sublingual Tablet Sublingual (NITROSTAT) Place 1 Tab under the tongue as needed for Pain, Chest. May repeat 3 times. If chest pain continues, call 911. Patient not taking: Reported on 03/13/2023 Not Taking REVIEW OF SYSTEMS: Per HPI. OBJECTIVE: PHYSICAL EXAM: BP 115/92 | Pulse 88 | Temp 36.9 C (98.4 F) (Temporal Artery) | Resp 18 | Ht 1.626 m (5' 4.02")| Wt 108.9 kg (240 lb) | LMP (LMP Unknown) | SpO2 98% | BMI 41.18 kg/m | BSA 2.22 m Constitutional: no acute distress HEENT: mucous membranes moist Neck: supple CV: regular Chest: clear, normal respiratory effort Neuro: alert and oriented Medications, labs and imaging were reviewed. PRE-SEDATION ASSESSMENT: Medical Port Insertion Level of sedation planned: Moderate Patient's allergies reviewed: Yes Difficulty with sedation / anesthesia: No Sleep apnea: No History of snoring: Yes History of difficult intubation: No Decreased ROM neck flexion/extension: No Tracheal deviation: No Decreased ability to open mouth / TMJ: No Loose teeth / dentures / partial: No Congenital deformities / abnormalities: No Dysphagia: No Mallampati Classification: II - soft palate, uvula, fauces visible Chest: Clear Heart: Regular Rhythm Adequate Vascular Access: Yes ASA Risk Stratification (Select One): ASA 3 - Severe systemic disease, definite functional limitations The patient was identified and the procedure verified: Yes The patient was reevaluated immediately prior to the sedation: 03/13/2023 11:30 AM IMPRESSION/PLAN: Jacque Spivey is a 62 year old adult with pancreatic cancer presenting for medical port insertion. - Proceed under moderate sedation. documented in this encounter Nursing Notes * Donnell Pozo RN - 03/13/2023 12:22 PM EDT Pt condition was reassessed by Dr. Krish Milelr immediately prior to start of moderate sedation and procedure. documented in this encounter OR Notes * Operative Report Brief - Krish Miller DO - 03/13/2023 12:47 PM EDT [facility]-[address] [address] OPERATIVE REPORT - BRIEF Name: Jacque Spivey Date: 03/13/2023 Time: 12:47 PM Location: OR [facility] Service: Interventional Radiology Date of Operation: 03/13/2023 Pre-op Diagnosis: Pancreatic cancer Post-op Diagnosis: Pancreatic cancer Operation: Right chest medical port insertion Surgeon: Krish Miller DO Assistants: None Anesthesia: Local and moderate sedation Drains: none Estimated Blood Loss: Negligible. Specimens/Disposition: None Apparent Intraoperative Complications: NONE Patient Condition: stable Disposition: In and Out recovery unit Attestation: I performed the procedure documented in this encounter Miscellaneous Notes * Sedation Note - Krish Miller DO - 03/13/2023 12:48 PM EDT SEDATION NOTE Indication: The patient is a(n) 62 year old adult with pancreatic cancer. Location: [facility] Sedating physician: Dr. Miller Procedure physician: Dr. Miller Procedure(s) Performed: Right chest medical port insertion Sedation was accomplished using versed and fentanyl administered as IV boluses. Any and all anesthetic medications were delivered under the direct supervision of a provider. Actual level of sedation: Moderate Patient tolerated procedure well. Vitals and oxygen saturations stable throughout. Adverse Outcome(s) during the procedure: None Sedation Start Time: 1223 Sedation End Time: 1245 Post Sedation Evaluation: Cardiovascular status: BP returned to baseline Level of consciousness: awake and alert Airway patency: patent Distress - NAD Hydration status - well hydrated Nausea/vomiting - not present Pain Evaluation Pain Assessment Flowsheet Row Most Recent Value Pain Assessment Scale ising Adult Scale 0-10 Pain Score 5 (moderate pain) Vital Signs: Temp: 36.9 C (98.4 F) (03/13 1045) BP: 138/78 (03/13 1244) Pulse: 97 (03/13 1244) Resp: 18 (03/13 1244) SpO2: 99 % (03/13 1244) I have personally examined the patient, prescribed the necessary medications as charted, and certify that Jacque Spivey is recovered for safe discharge from my face to face care. documented in this encounter Plan of Treatment Upcoming Encounters Date Type Specialty Care Team Description 03/20/2023 Office Visit Neurology Greer Davis PA-C [address] [place] [address] 03/23/2023 Laboratory Laboratory [facility], Lab Scenery [address] [place] [address] 03/24/2023 Hem/Onc Treatment Hematology [facility], Chair 5 Hem Onc Scenery [address] [place] [address] 03/25/2023 Office Visit Palliative Medicine Mercedes Aranda MD [address] [facility] [place] [id number] 04/29/2023 Office Visit Family Medicine Vanesa Solorzano, DO [address] [place] [address] 04/29/2023 Office Visit Gastroenterology Amberly Turner CRNP [address] [place] [address] 05/26/2023 Office Visit Gynecology Oncology Brayan Olguin PA-C [address] [place] [address] Health Maintenance Due Date Last Done Comments [...] this encounter Medical Devices Implanted Type Area Pulp Tester Device Identifier Shelf Expiration Date Model / Serial / Lot Port Implant W/8f Poly Cath - [id number] Implanted:Qty : 1 on 03/13/2023 by Krish Miller DO at OR [facility] Right: Chest CR BARD : PERIPHERAL VASCULAR [id number] 11/24/2023 [id number] / / [id number] documented as of this encounter Procedures Procedure Name Priority Date/Time Associated Diagnosis Comments IR INTERVENTIONAL RADIOLOGY PROCEDURE IN OR Routine 03/13/2023 12:39 PM EDT documented in this encounter Results * IR INTERVENTIONAL RADIOLOGY PROCEDURE IN OR (03/13/2023 12:39 PM EDT) 03/13/2023 1:05 PM EDT Impressions [facility] RADIOLOGY - 03/13/2023 1:03 PM EDT IMPRESSION: Successful placement of a right chest power injectable medical port. PLAN: If possible, please refrain from accessing the port for 48 hours to minimize the risk of infection. N[facility]ative [facility] 03/13/2023 1:03 PM EDT PROCEDURE: Right chest medical port placement INDICATION: 62-year-old female with pancreatic cancer in need of central intravenous access for chemotherapy. ATTENDING (OPERATING PHYSICIAN): Krish Miller DO SCRUBBED RESIDENT (OPERATING PHYSICIAN): None SUPPORTING PROVIDER (CARDIOGRAPH OPERATOR): None CONSENT: After a detailed discussion of the procedure, risks, benefits and alternative treatment options, informed consent was obtained. TIME OUT: A time out procedure was performed. The patient's identification was verified. Informed consent with agreement of procedure, site and position was obtained. All necessary equipment was available prior to procedure. CONTRAST: No contrast was administered COMPLICATIONS: None ANESTHESIA: Local lidocaine. IV Versed. IV Fentanyl. SEDATION TIME: Start to end: [id number]. Qualified nurse sedation observer Eloina De La Torre RN. MEDICATIONS: See MAR PROCEDURE DESCRIPTION: The right neck and chest were prepped and draped in the usual sterile fashion. Using real-time ultrasound guidance, the right internal jugular vein was punctured with a micro puncture needle. Digital ultrasound images were acquired and digitally archived. A wire and sheath were used to secure access to the internal jugular vein access using fluoroscopic guidance. An 8 Fr catheter was tunneled subcutaneously through a second incision in the upper chest to the internal jugular access and advanced through a peel-away sheath and positioned under fluoroscopic guidance. The catheter was then measured to 24 cm, cut, and attached to a power injectable medical port. Once the medical port and catheter were in satisfactory position, the medical port was accessed, had appropriate blood return, and easily flushed and was locked with dilute heparin. The incision was then closed with absorbable suture and surgical glue. The venotomy site was closed with surgical glue. I personally performed the procedure. FINDINGS: Ultrasound shows an anechoic and compressible right internal jugular vein. The medical port is in the right upper chest with the catheter tip in the mid right atrium. Procedure Note Krish Miller DO - 03/13/2023 PROCEDURE: Right chest medical port placement INDICATION: 62-year-old female with pancreatic cancer in need of centralintravenous access for chemotherapy. ATTENDING (OPERATING PHYSICIAN): Krish Miller DO SCRUBBED RESIDENT (OPERATING PHYSICIAN): None SUPPORTING PROVIDER (CARDIOGRAPH OPERATOR): None CONSENT: After a detailed discussion of the procedure, risks, benefits andalternative treatment options, informed consent was obtained. TIME OUT: A time out procedure was performed. The patient's identificationwas verified. Informed consent with agreement of procedure, site andposition was obtained. All necessary equipment was available prior toprocedure. CONTRAST: No contrast was administered COMPLICATIONS: None ANESTHESIA: Local lidocaine. IV Versed. IV Fentanyl. SEDATION TIME: Start to end: [id number]. Qualified nurse sedation observerEloina De La Torre RN. MEDICATIONS: See ANDREW PROCEDURE DESCRIPTION: The right neck and chest were prepped and draped inthe usual sterile fashion. Using real-time ultrasound guidance, the rightinternal jugular vein was punctured with a micro puncture needle. Digitalultrasound images were acquired and digitally archived. A wire and sheathwere used to secure access to the internal jugular vein access usingfluoroscopic guidance. An 8 Fr catheter was tunneled subcutaneously through a second incision inthe upper chest to the internal jugular access and advanced through apeel-away sheath and positioned under fluoroscopic guidance. The catheterwas then measured to 24 cm, cut, and attached to a power injectablemedical port. Once the medical port and catheter were in satisfactory position, themedical port was accessed, had appropriate blood return, and easilyflushed and was locked with dilute heparin. The incision was then closedwith absorbable suture and surgical glue. The venotomy site was closedwith surgical glue. I personally performed the procedure. FINDINGS: Ultrasound shows an anechoic and compressible right internal jugular vein.The medical port is in the right upper chest with the catheter tip in themid right atrium. IMPRESSION IMPRESSION: Successful placement of a right chest power injectable medical port. PLAN: If possible, please refrain from accessing the port for 48 hours tominimize the risk of infection. Krish Miller DO RAD SPECIAL PROCEDUR [facility] documented in this encounter Administered Medications Inactive Administered Medications - up to 3 most recent administrations Medication Order MAR Action Action Date Dose Rate Site isolyte-S pH 7.4 infusion Intravenous, at 10 mL/hr, Plasma-LYTE 148, isolyte-S, and isolyte-S pH 7.4 are considered equivalent - including for MAR barcode scanning., CONTINUOUS, Starting on Thu03/13/23 at 1115, Until Thu03/13/23 at 1739 New Bag 03/13/2023 10:54 AM EDT 10 mL/hr documented in this encounter Active and Recently Administered Medications Times are shown in EDT. Continuous Medication Order 03/11/2023 03/12/2023 03/13/2023 isolyte-S pH 7.4 infusion Intravenous, at 10 mL/hr, Plasma-LYTE 148, isolyte-S, and isolyte-S pH 7.4 are considered equivalent - including for MAR barcode scanning., CONTINUOUS, Starting on Thu03/13/23 at 1115, Until Thu03/13/23 at 1739 1054 (New Bag - Prov ider: Tiera Young RN) PRN Medication Order 03/11/2023 03/12/2023 03/13/2023 buffered lidocaine 1 % inj (CANCELED) ONCE PRN INTRA PROCEDURE, Starting on Thu03/13/23 at 1236, Until Thu03/13/23 at 1248, Intra-Op 1236 (Given - Provid er: Krish Miller DO) fentaNYL (PF) inj (CANCELED) ONCE PRN INTRA PROCEDURE, Starting on Thu03/13/23 at 1224, Until Thu03/13/23 at 1248, Intra-Op 1224 (Given - Provid er: Eloina De La Torre RN)1231 (Given - Provider: Eloina De La Torre RN) hEParin 100 UNIT/ML Lock Flush inj (CANCELED) ONCE PRN INTRA PROCEDURE, Starting on Thu03/13/23 at 1236, Until Thu03/13/23 at 1248, Intra-Op 1236 (Given - Provid er: Krish Miller DO) midazolam (Versed) 2 MG/2ML inj (CANCELED) ONCE PRN INTRA PROCEDURE, Starting on Thu03/13/23 at 1225, Until Thu03/13/23 at 1248, Intra-Op 1225 (Given - Provid er: Eloina De La Torre RN) documented in this encounter Care Teams Head Machine Feeder Relationship Specialty Start Date End Date Vanesa Solorzano DO [address] [place] [address] PCP - General Family Medicine 09/21/18 documented as of this encounter
--- OUTSIDE RECORDS SUMMARY | 2023-04-06 06:17 | External Medical Summary ---
Author Name Unknown Address Unknown Organization K09:[facility] [place] [address] Laboratory Report Ordering Provider Test Date Status NELISYLWIA 03/23/2023 07:29:12 Final Observation Date Value Abnormality Reference (Units ) Status BUN 03/23/2023 07:29:12 16 6-20 (mg/d L) Final Creatinine 03/23/2023 07:29:12 0.8 0.5-1.0 ( mg/dL) Final Performing Location [facility] [place] [address]
--- OUTSIDE RECORDS SUMMARY | 2023-04-06 06:17 | External Medical Summary | Summary of Care ---
Author Name Unknown Organization [facility] Address [address] [place] [address] Phone [phone] Care Team Providers Care Grooving Machine Operator Name Role Phone Vanesa Solorzano Primary Care Provider [phone] Reason for Visit * Reason Onset Date Comments Medication Refill 03/06/2023 Encounter Details Date Type Department Care Team Description 03/06/2023 Refill Palliative Medicine [facility] [address] [place] [address] Ricardo Gonzalez MD [address] [place] [id number] Malignant neoplasm of head of pancreas (HCC) [...] for Nausea. 30 Tablet 0 03/02/2023 Active Lidocaine-Priloca ine 2.5-2.5 % External Cream (Emla)Indications :Malignant neoplasm of head of pancreas (HCC) APPLY TO SKIN OVER MEDIPORT & COVER 1HR PRIOR TO ACCESSING. 30 g 1 03/03/2023 Active Loratadine 10 MG Oral Tablet (Claritin)Indicat ions:Malignant neoplasm of head of pancreas (HCC) Take 1 tablets for 5 days each chemo cycle, starting the day BEFORE udenyca injection 60 Tablet 0 03/03/2023 Active oxyCODONE-Acetami nophen 5-325 MG Oral Tablet (Percocet)Indicat ions:Malignant neoplasm of head of pancreas (HCC) Take 1 Tablet by mouth every 4 hours as needed for Pain, Severe. 15 Tablet 0 03/04/2023 Active Mirtazapine 15 MG Oral Tablet (Remeron)Indicati ons:Anxiety disorder due to medical condition Take 1 Tablet by mouth at bedtime. 30 Tablet 0 03/04/2023 Active busPIRone HCl 10 MG Oral Tablet (Buspar)Indicatio ns:Anxiety disorder due to medical condition Take 1 [...] Acetaminophen 500 MG Oral Tablet (Tylenol Extra Strength)Indicati ons:Malignant neoplasm of head of pancreas (HCC) Take 2 Tablets by mouth in the morning and 2 Tablets at noon and 2 Tablets in the evening. 120 Tablet 0 03/06/2023 Active Simethicone 125 MG Oral CapsuleIndication s:Malignant neoplasm of head of pancreas (HCC) Take 1 Capsule by mouth 3 times a day as needed (Gas). 90 Capsule 3 03/06/2023 Active Acetaminophen 500 MG Oral Tablet (Tylenol Extra Strength)Indicati ons:Malignant neoplasm of head of pancreas (HCC) Take 2 Tablets by mouth in the morning and 2 Tablets at noon and 2 Tablets in the evening. 120 Tablet 0 03/04/2023 03/06/2023 Discontinue d(Refill) Simethicone 125 MG Oral CapsuleIndication s:Malignant neoplasm of head of pancreas (HCC) Take 1 Capsule by mouth 3 times a day as needed (Gas). 90 Capsule 3 03/04/2023 03/06/2023 Discontinue d(Refill) documented as of this encounter (statuses as [...] encounter Miscellaneous Notes * Telephone Encounter - Ricardo Gonzalez MD - 03/06/2023 9:39 AM EDT Signed Prescriptions: Disp Refills Acetaminophen 500 MG Oral Tablet (Tylenol *120 Ta*0 Sig: Take 2 Tablets by mouth in the morning and 2 Tablets at noon and 2 Tablets in the evening. Authorizing Provider: RICARDO GONZALEZ Simethicone 125 MG Oral Capsule 90 Cap*3 Sig: Take 1 Capsule by mouth 3 times a day as needed (Gas). Authorizing Prov ider: RICARDO GONZALEZ * Telephone Encounter - Katelynn Fernandez LPN - 03/06/2023 9:08 AM EDTPending Prescriptions: Disp Refills Acetaminophen 500 MG Oral Tablet (Tylenol *120 Ta*0 Sig: Take 2Tablets by mouth in the morning and 2 Tablets at noon and 2 Tablets in the evening. Simethicone 125MG Oral Capsule 90 Cap*3 Sig: Take 1 Capsule by mouth 3 times a day as needed (Gas). documented in this encounter Plan of Treatment Upcoming Encounters Date Type Specialty Care Team Description 03/11/2023 Scheduled Telephone Palliative Medicine Fl, Nurse Palliative Medicine [facility] [address]th [address] [place] [id number] 03/13/2023 Hospital Encounter Surgery Krish Miller, DO [address] [place] [phone] 03/13/2023 Surgery Surgery Krish Miller, DO [address] [place] [id number] INSERT TUNNELED CENTRAL VENOUS ACCESS WITH SUBQ PORT 03/20/2023 Office Visit Neurology Greer Davis PA-C [address] [facility] [place] [phone] 03/23/2023 Laboratory Laboratory [place], Lab Scenery [address] [facility] [place] [address] 03/24/2023 Hem/Onc Treatment Hematology Oncology [place], Chair 5 Hem Onc Scenery [address] [place] [address] 03/25/2023 Office Visit Palliative Medicine Ricardo Gonzalez MD [address] [place] [phone] 04/29/2023 Office Visit Family Medicine Vanesa Solorzano, DO [address] [facility] [place] [address] 04/29/2023 Office Visit Gastroenterology Amberly Truner CRNP [address] [place] [address] 05/26/2023 Office Visit Gynecology Oncology Brayan Olguin PA-C [address] [facility] [place] [address] Scheduled Procedures Name Priority Associated Diagnoses Date/Ti [...] pancreas documented in this encounter Care Teams Grooving Machine Operator Relationship Specialty Start Date End Date Vanesa Solorzano, [address] [place] [address] PCP - General Family Medicine 09/21/18 documented as of this encounter
--- OUTSIDE RECORDS SUMMARY | 2023-04-06 06:17 | External Medical Summary | Summary of Care ---
Author Name Unknown Organization [facility] Address [address] [place] [address] Phone [phone] Care Team Providers Care Head Batcher Name Role Phone Rashad Vanesa Tracee HARRIS Primary Care Provider Reason for Referral * Evaluate & Treat - Unlimited Visits (Within 10 days (routine)) - Pending Review Specialty Diagnoses / Procedures Referred By Todd young Referred To Contact Physical Therapy / Physical Medicine And Rehab Diagnoses History of right MCA stroke Weakness of left lower extremity Weakness of left upper extremity Greer Davis PA-C [place] [id number] Referral ID Status Reason Start Date Expiration Date Visits Requested Visits Authorized [id number] Pending Review Specialty Services Required 03/20/[phone] Question Answer Referral Priority Within 10 days (routine) Comments PT for post- stroke; weakness left UE and LE, incoordination left hand Reason for Visit * Reason Comments Return Neuro Encounter Details Date Type Department Care Team Description 03/20/2023 Office Visit Neurology [facility] [place] [address] [place] [address] Greer Davis PA-C [address] [place] [phone] History of right MCA stroke*; Weakness of left lower extremity; Weakness of left upper extremity Allergies No known active allergiesdocumented as of this encounter (statuses as of 03/20/2023) Medications Medication Sig Dispensed Refills Start Date [...] as of this encounter (statuses as of 03/20/2023) Active Problems Problem Noted Date Encounter for [...] as of this encounter (statuses as of 03/20/2023) Resolved Problems Problem Noted Date Resolved Date Obesity, morbid (more than 1 00 lbs over ideal weight or BMI > 40) 01/08/2010 04/08/2019 Overview: Per Obesity Protocol, #19 ICD-10 update of inactive term Dyslipidemia, goal LDL below 100 09/15/2014 Obesity 04/08/2019 Overview: Per Obesity protocol documented as of this encounter (statuses as of 03/20/2023) Immunizations Name Administration Dates Next Due COVID-19 [...] Sign Reading Time Taken Comments Blood Pressure 110/70 03/20/2023 8:44 AM EDT Pulse 70 03/20/2023 8:44 AM EDT Temperature 36.3 C (97.4 F) 03/20/2023 8:44 AM ED T Respiratory Rate - - Oxygen Saturation - - Inhaled Oxygen Concentration - - Weight 102.6 kg (226 lb 4.8 oz) 03/20/2023 8:44 AM EDT Height - - Body Mass Index 38.82 03/13/2023 10:45 AM EDT documented in this encounter Progress Notes * Greer Davis PA-C - 03/20/2023 9:00 AM EDT HISTORY & PHYSICAL EXAMINATION - NEUROLOGY Name: Jacque Spivey Date: 03/19/2023 Time: 12:30 PM Chief Complaint Patient presents with Return Neuro SUBJECTIVE: Jacque Spivey is a 62 year old female who returns today for follow- up of right MCA distribution stroke and multiple punctate strokes in occipital lobes and right cerebellum, etiology embolic vs hypercoagulability due to neoplasm. She was last seen by Dr. Cabrera on 02/13/23. She presented to [facility] 01/02/23 with left leg weakness and left hand numbness. Declined TNK. CTA no vascular stenosis. MRI brain with medium-sized right parietotemporal stroke and other acute punctate strokes in the bioccipital head region and right cerebellum. Said to be in atrial flutter. Diagnosis of unresectable pancreatic cancer, and endometrial cancer. Starting chemotherapy for pancreatic cancer next week. Had IUD placed for endometrial cancer. Restarted Eliquis. Presents today accompanied by her mother and son. States within the past month she started developing right hand numbness which is brief in duration. Seems to be related to certain movements, such asusing her walker to stand from the toilet, or grabbing a bar to help herself into the car. Receiving physical therapy through [facility]. Working on strength and coordination. Walking minimally with a walker. Denies headache, diplopia, slurred speech, dysphagia, and new onset weakness. Allergies: Patient has no known allergies. Problem list: Patient Active Problem List Diagnosis Code Obesity, morbid, BMI 40.0-49.9 ([facility]) E66.01 Acute CVA (cerebrovascular accident) ([facility]) I63.9 Anxiety F41.9 Elevated troponin R77.8 Genetic carrier status Z14.8 Intermittent abdominal pain R10.9 Paroxysmal atrial flutter (HCC) I48.92 SVT (supraventricular tachycardia) ([facility]) I47.1 Weakness R53.1 Acute left hemiparesis ([facility]) G81.94 Endometrial cancer (HCC) C54.1 Pancreatic cancer (HCC) C25.9 Encounter for antineoplastic chemotherapy Z51.11 Past Medical History: Past Medical History: Diagnosis Date Acute CVA (cerebrovascular accident) (HCC) 01/26/2023 Acute left hemiparesis (HCC) 01/26/2023 Anxiety 01/26/2023 Dyslipidemia, goal LDL below 130 Gestational hypertension Obesity, morbid, BMI 40.0-49.9 ([facility]) 04/04/2019 Per Obesity protocol Other screening mammogram 03/10/2005 wnl per [facility] at Paroxysmal atrial flutter (HCC) 01/26/2023 SVT (supraventricular tachycardia) (HCC) 01/26/2023 Current Outpatient Medications: Current Outpatient Medications Medication Sig Dispense Refill Nitroglycerin 0.3 MG Sublingual Tablet Sublingual (NITROSTAT) Place 1 Tab under the tongue as needed for Pain, Chest. May repeat 3 times. If chest pain continues, call 911. 25 Tab 11 Pantoprazole Sodium 40 MG Oral Tablet Delayed Release (Protonix) Take 1 Tablet by mouth in the morning. Apixaban 5 MG Oral Tablet (Eliquis) Take 1 Tablet by mouth in the morning and 1 Tablet before bedtime. 60 Tablet 11 Prochlorperazine Maleate 10 MG Oral Tablet (Compazine) [...] day BEFORE udenyca injection 60 Tablet 0 Mirtazapine 15 MG Oral Tablet (Remeron) Take 1 Tablet by mouth at bedtime. 30 Tablet 0 busPIRone HCl 10 MG Oral Tablet (Buspar) Take 1 Tablet by mouth 3 times a day as needed (Anxiety). 90 Tablet 0 Metoprolol Succinate ER 25 MG Oral Tablet Extended Release 24 Hour (toPROL XL) Take 1 Tablet by mouth in the morning and 1 Tablet before bedtime. 60 Tablet 1 Megestrol Acetate 20 MG Oral Tablet (Megace) Take 1 Tablet by mouth in the morning and 1 Tablet before bedtime. 60 Tablet 1 Acetaminophen 500 MG Oral Tablet (Tylenol Extra Strength) Take 2 Tablets by mouth in the morning and 2 Tablets at noon and 2 Tablets in the evening. 120 Tablet 0 Simethicone 125 MG Oral Capsule Take 1 Capsule by mouth 3 times a day as needed (Gas). 90 Capsule 3 oxyCODONE-Acetaminophen 5-325 MG Oral Tablet (Percocet) Take 1 Tablet by mouth every 4 hours as needed for Pain, Severe. (Patient not taking: Reported on 03/13/2023) 15 Tablet 0 No current facility-administered medications for this visit. Family History: Family History Problem Relation Age of Onset Hyperlipidemia Mother Osteoporosis Mother Prostate cancer Father Stroke Brother Heart attack Brother Diabetes Brother Hypertension Brother Breast Cancer Grandmother (Paternal) SOCIAL HISTORY: Social History Tobacco Use Smoking status: Never Smokeless tobacco: Never Vaping Use Vaping Use: Never used Substance Use Topics Alcohol use: Yes Comment: Occasionally Drug use: No REVIEW OF SYSTEMS: As above OBJECTIVE: Physical Examination: BP 110/70 (BP Site: Left Arm, BP Position: Sitting, BP Cuff Size: Regular) | Pulse 70 | Temp 36.3 C (97.4 F) (Tympanic) | Wt 102.6 kg (226 lb 4.8 oz) | LMP (LMP Unknown) | BMI 38.82 kg/m | BSA 2.15 m General appearance: Alert, frequently tearful Physical Exam: Constitutional: Appearance normally developed,well nourished,no deformities Head and face: normocephalic,atraumatic Respiratory: normal effort,clear to auscultation Cardiovascular: normal heart sounds and regular rhythm NEUROLOGIC EXAMINATION: Mental Status Exam: alert,oriented to time, place, person,normal recent memory,normal remote memory,normal attention span,normal concentration,normal language,normal fund of knowledge Cranial Nerves: CN 2,3 - PERRLA CN 3, 4, 6 - Extra-ocular Movements Intact,no nystagmus CN 5 - Facial sensation intact and equal bilaterally CN 7 - no facial assymetry CN 8 - hearing grossly intact CN 9, 10, 12 - tongue and uvula midline Coordination: normal finger-nose testing. Clumsy alternating movements left hand. Difficulty with following spatial directions Gait/station: Gait not assessed; in wheelchair Muscle exam: Arm Right Left Leg Right Left Deltoid 5/5 4+/5 Iliopsoas 5/5 4+/5 Biceps 5/5 4+/5 Quads 5/5 4+/5 Triceps 5/5 5/5 Ankle Dorsi Flexion 5/5 5/5 Ankle Plantar Flexion 5/5 5/5 Finger Flexors 5/5 5/5 Reflexes: Biceps BR Patellar Achilles Plantars Right 2+ 2+ 1 1 Flexor Left 2+ 2+ 1 1 Flexor Sensation: Intact light touch LABORATORY: Results for orders placed or performed in visit on 03/04/23 CBC Result Value Ref Range WBC 11.96 (H) 4.00 - 10.80 K/uL RBC 3.91 3.85 - 5.15 M/uL HGB 10.6 (L) 12.0 - 15.3 g/dL HCT 33.7 (L) 36.0 - 45.2 % MCV 86.2 81.5 - 97.5 fL MCH 27.1 27.0 - 34.0 pg MCHC 31.5 32.0 - 36.0 g/dL RDW 16.1 11.5 - 15.5 % PLT 152 140 - 400 K/uL MPV 10.6 6.6 - 11.1 fL Results for orders placed or performed in visit on 01/16/23 BASIC METABOLIC PANEL Result Value Ref Range BUN 19 6 - 20 mg/dL Creatinine 0.7 0.5 - 1.0 mg/dL Estimated Glomerular Filtration Rate >90 >=60 mL/min Sodium 136 135 - 146 mmol/L Potassium 4.2 3.5 - 5.1 mmol/L Chloride 99 98 - 107 mmol/L CO2 22 22 - 32 mmol/L Anion Gap 15 7 - 15 mmol/L Glucose 169 (H) 70 - 120 mg/dL Calcium 10.3 (H) 8.4 - 10.2 mg/dL Lab Results Component Value Date/Time [facility]) 02/18/2023 08:47 AM No results found for: GABRIELA Hepatitis B Core Antibodies IgG and IgM Date Value Ref Range Status 03/04/2023 Negative Negative Final Hepatitis B Surface Antibody, Interpretation Date Value Ref Range Status 03/04/2023 NOT immune to Hepatitis B Virus Final Comment: POSITIVE: >=11.5 mIU/mL INDETERMINATE: 8.5-<11.5 mIU/mL NEGATIVE: <8.5 mIU/mL Hepatitis B Surface Antibody, Qualitative Date Value Ref Range Status 03/04/2023 Negative Final Hepatitis B Surface Antibody, Quantitative Date Value Ref Range Status 03/04/2023 <3.5 mIU/mL Final Hepatitis B Surface Antigen Date Value Ref Range Status 03/04/2023 Negative Negative Final Results for orders placed or performed in visit on 03/04/23 VITAMIN B12 Result Value Ref Range Vitamin B12 662 232 - 1,245 pg/mL Results for orders placed or performed in visit on 03/04/23 FOLIC ACID Result Value Ref Range Folic Acid 7.6 >4.5 ng/mL Review of prior Studies: No recent imaging available. ASSESSMENT/PLAN: Jacque Spivey is a 62 year old female with right MCA distribution stroke and multiple punctate strokes in occipital lobes and right cerebellum, etiology embolic vs hypercoagulability due to neoplasm. On Eliquis for anticoagulation. She has new complaint today of transient right hand numbness which appears exacerbated by certain movements such as grabbing a bar to stand, or using her wheelchair to stand. Will defer EMG for now. May try a wrist splint. Continue physical therapy for post- stroke recovery. Referral placed; if additional documentation is needed for insurance advised to let me know. Will message Dr. Ring regarding timing for MRI brain w/wo contrast. GI stent placed 02/06/23; mayneed to wait 60 days prior to imaging. Follow up in 3 months or sooner if needed. I spent a total of 40 minutes on the date of service in preparation, delivery, and documentation of the care provided to Jacque Spivey. Case discussed with Conchita Cabrera MD. Greer Davis PA-C, Neurology [facility] [place] [place] [address] 03/20/23 9:39 AM documented in this encounter Nursing Notes * Elmira Peoples LPN - 03/20/2023 8:40 AM EDT Return patient- has numbness in right hand that does not go away documented in this encounter Plan of Treatment Upcoming Encounters Date Type Specialty Care Team Description 03/23/2023 Laboratory Laboratory [place], Lab [facility] [address] [facility] [place] [address] 03/24/2023 Hem/Onc Treatment Hematology Oncology [place], Chair 5 Hem Onc [facility] [address] [facility] [place] [address] 03/25/2023 Office Visit Palliative Medicine Mercedes Aranda MD [address] [place] [address] [place] [address] 04/29/2023 Office Visit Family Medicine Vanesa Solorzano, DO [address] [place] [address] 04/29/2023 Office Visit Gastroenterology Amberly Turner CRNP [address] [place] [address] 05/26/2023 Office Visit Gynecology Oncology Brayan Olguin PA-C [address] [place], [place] [id number] 06/16/2023 Office Visit Neurology Greer Davis PA-C [address] [facility] [place] [address] Scheduled Referrals Name Type Priority Associated Diagnoses Orde r Schedule PHYSICAL THERAPY REFERRAL OP Referral Within 10 days (routine) History of right MCA stroke Weakness of left lower extremity Weakness of left upper extremity Ordered: 03/20/2023 Health Maintenance Due Date Last Done Comments [...] this encounter Medical Devices Implanted Type Area Pie Icer Machine Device Identifier Shelf Expiration Date Model / Serial / Lot Port Implant W/8f Poly Cath - [id number] Implanted:Qty : 1 on 03/13/2023 by Krish Miller DO at OR [facility] Right: Chest CR BARD : PERIPHERAL VASCULAR [id number] 11/24/2023 [id number] / / [id number] documented as of this encounter Visit Diagnoses Diagnosis History of right MCA stroke- Primary Transient ischemic attack (TIA), and cerebral infarction without residual deficits Weakness of left lower extremity Weakness of left upper extremity Other musculoskeletal symptoms referable to limbs documented in this encounter Care Teams Head Batcher Relationship Specialty Start Date End Date Vanesa Solorzano DO [address] [place] [address] PCP - General Family Medicine 09/21/18 documented as of this encounter"
--- OUTSIDE RECORDS SUMMARY | 2023-04-06 06:17 | External Medical Summary | Summary of Care ---
Author Name Unknown Organization [facility] Address [address] [place] [address] Phone [phone] Care Team Providers Care Fruit Pitter Name Role Phone Vanesa Solorzano Primary Care Provider Reason for Visit * Reason Onset Date Comments Precert Future 02/18/2023 FOLFIRINOX Encounter Details Date Type Department Care Team Description 02/18/2023 Telephone Hematology/Oncology Treatment, [place] [address] [facility] [place] [phone] Crescencio Rosales MD [address] [place] [address] Precert Future (FOLFIRINOX) Allergies No known active allergiesdocumented as of this encounter (statuses as of 03/04/2023) Medications Medication Sig Dispensed Refills Start Date End Date Status Nitroglycerin 0.3 MG Sublingual Tablet Sublingual (NITROSTAT)Indica tions:Chest pain, unspecified type Place 1 Tab under the tongue as needed for Pain, Chest. May repeat 3 times. If chest pain continues, call 911. 60 Tab 11 05/31/2020 Active Pantoprazole Sodium 40 [...] as of this encounter Miscellaneous Notes * Addendum Note - Ayana Carr RN [...] 11:36 AM EDT Order received for FOLFIRINOX. [place] plan placed on hold- patient has appt with manager gyn/onc for endometrial cancer 02/18/23, also scheduled to see gen surg 02/24/23 to discuss surgical options. Patient is returning 03/11/[address] Rosales and decide on proceeding with chemotherapy. documented in this encounter Plan of Treatment Upcoming Encounters Date Type Specialty Care Team Description 03/11/2023 Scheduled Telephone Palliative Medicine [place], Nurse Palliative Medicine [address] [place] [address] 03/13/2023 Hospital Encounter Surgery Krish Miller, DO [address] [place] [address] 03/13/2023 Surgery Surgery Krish Miller, DO [address] [place] [address] INSERT TUNNELED CENTRAL VENOUS ACCESS WITH SUBQ PORT 03/20/2023 Office Visit Neurology Greer Davis PA-C [address] [place] [phone] 03/25/2023 Office Visit Palliative Medicine Mercedes Aranda MD [address] [place] [phone] 04/29/2023 Office Visit Family Medicine Vanesa Solorzano DO [address] [place] [address] 04/29/2023 Office Visit Gastroenterology Amberly Turner, TYLER [address] [place] [address] 05/26/2023 Office Visit Gynecology Oncology Brayan Olguin PA-C [address] [place] [address] Pending Results Name Type Priority Associated Diagnoses Date /Time HEPATITIS B SURFACE ANTIBODY Lab STAT Malignant neoplasm of head of pancreas (HCC) 03/04/2023 12:37 PM EDT HEPATITIS B SURFACE ANTIGEN Lab STAT Malignant neoplasm of head of pancreas (HCC) 03/04/2023 12:37 PM EDT HEPATITIS B CORE ANTIBODIES IGG AND IGM Lab STAT Malignant neoplasm of head of pancreas (HCC) 03/04/2023 12:37 PM EDT Scheduled Orders Name Type Priority Associated Diagnoses Orde r Schedule CBC WITH WBC DIFFERENTIAL Lab STAT Malignant neoplasm of head of pancreas (HCC) Every 2 Weeks for 26 Occurrences starting 03/03/2023 until 03/03/2024, 1 completed COMPREHENSIVE METABOLIC PANEL Lab STAT Malignant neoplasm of head of pancreas (HCC) Every 2 Weeks for 26 Occurrences starting 03/03/2023 until 03/03/2024, 1 completed HEPATITIS B SURFACE ANTIBODY Lab STAT Malignant neoplasm of head of pancreas (HCC) Expected: 03/03/2023 (Approximate), Expires: 03/03/2024 HEPATITIS B SURFACE ANTIGEN Lab STAT Malignant neoplasm of head of pancreas (HCC) Expected: 03/03/2023 (Approximate), Expires: 03/03/2024 HEPATITIS B CORE ANTIBODIES IGG AND IGM Lab STAT Malignant neoplasm of head of pancreas (HCC) Expected: 03/03/2023 (Approximate), Expires: 03/03/2024 FERRITIN Lab STAT Malignant neoplasm of head of pancreas (HCC) Expected: 03/04/2023, Expires: 03/04/2024 IRON SCREEN, INCLUDING TIBC Lab STAT Malignant neoplasm of head of pancreas (HCC) Expected: 03/04/2023, Expires: 03/04/2024 VITAMIN B12 Lab STAT Malignant neoplasm of head of pancreas (HCC) Expected: 03/04/2023, Expires: 03/04/2024 FOLIC ACID Lab STAT Malignant neoplasm of head of pancreas (HCC) Expected: 03/04/2023, Expires: 03/04/2024 Scheduled Procedures Name Priority Associated Diagnoses Date/Ti [...] filedocumented as of this encounter Results * (ABNORMAL) COMPREHENSIVE METABOLIC PANEL (03/04/2023 12:37 PM EDT) BUN 7 6 - 20 mg/dL 03/04/2023 1:05 PM EDT [facility] 56 Creatinine 0.8 0.5 - 1.0 mg/dL 03/04/2023 1:05 PM EDT [facility] 56- Comment:The above reference range is based on the legal sex of the patient only. Results should be interpreted together with patient's sex at , gender identity, and clinical context. Estimated Glomerular Filtration Rate 87 >=60 mL/min 03/04/2023 1:05 PM T [facility] 56- Comment:eGFR is calculated b ased on the legal sex of the patient, using the CKD- EPI 2020 equation Sodium 135 135 - 146 mmol/L 03/04/2023 1:05 PM T [facility] 56- Potassium 4.0 3.5 - 5.1 mmol/L 03/04/2023 1:05 PM EDT [facility] 56- Chloride 100 98 - 107 mmol/L 03/04/2023 1:05 PM EDT [facility] 56- CO2 22 22 - 32 mmol/L 03/04/2023 1:05 PM EDT [facility] 56- Anion Gap 13 7 - 15 mmol/L 03/04/2023 1:05 PM EDT [facility] 56- Glucose 175(H) 70 - 120 mg/dL 03/04/2023 1:05 PM EDT [facility] 56- Albumin 4.2 3.8 - 5.0 g/dL 03/04/2023 1:05 PM EDT [facility] 56- AST 21 10 - 35 U/L 03/04/2023 1:05 PM EDT [facility] 56- Alkaline Phosphatase 102 35 - 130 U/L 03/04/2023 1:05 PM EDT [facility] 56 Bilirubin, Total 0.8 <=1.2 mg/dL 03/04/2023 1:05 PM EDT [facility] 56 Calcium 10.3(H) 8.4 - 10.2 mg/dL 03/04/2023 1:05 PM EDT [facility] 56 Protein 7.5 6.0 - 8.3 g/dL 03/04/2023 1:05 PM EDT [facility] 56 ALT 16 10 - 35 U/L 03/04/2023 1:05 PM EDT [facility] 56 Blood Venous blood specimen / Unknown Venipuncture / Unknown 03/04/2023 12:37 PM EDT 03/04/2023 12:37 PM EDT Crescencio Rosales MD LAB BLOOD ORDERA BLES [facility] [address] [place] [address] documented in this encounter Visit Diagnoses Diagnosis Malignant neoplasm of head of pancreas (HCC)- Primary Malignant neoplasm of head of pancreas Malignant neoplasm of head of pancreas (HCC) Malignant neoplasm of head of pancreas documented in this encounter Care Teams Fruit Pitter Relationship Specialty Start Date End Date Vanesa Solorzano DO [address] [place] [address] PCP - General Family Medicine 09/21/18 documented as of this encounter
--- OUTSIDE RECORDS SUMMARY | 2023-04-06 06:17 | External Medical Summary | Summary of Care ---
Author Name Unknown Organization [facility] Address [address] [place] [address] Phone [phone] Care Team Providers Care Fishing Rod Marker Name Role Phone Vanesa Solorzano Primary Care Provider [phone] Reason for Visit * Reason Onset Date Comments Palliative Care Follow-up 03/11/2023 Encounter Details Date Type Department Care Team Description 03/11/2023 Scheduled Telephone Palliative Medicine, [address] 5[address] [place], [place] [phone] [place], Nurse Palliative Medicine [address] [address] Allergies No known active allergiesdocumented [...] answer Left message requesting return call to [phone] documented in this encounter Plan of Treatment Upcoming Encounters Date Type Specialty Care Team Description 03/13/2023 Hospital Encounter Surgery Krish Miller, DO [address] [place] [address] 03/13/2023 Surgery Surgery Krish Miller, [address] [place] [address] INSERT TUNNELED CENTRAL VENOUS ACCESS WITH SUBQ PORT 03/20/2023 Office Visit Neurology Greer Davis PA-C [address] [facility] [place] [address] 03/23/2023 Laboratory Laboratory [place], Lab Scenery [address] [place] [address] 03/24/2023 Hem/Onc Treatment Hematology [place], Chair 5 Hem Onc Scenery [address] [place] [address] 03/25/2023 Office Visit Palliative Medicine Mercedes Aranda MD [address] [place] [address] 04/29/2023 Office Visit Family Medicine Vanesa Solorzano, DO [address] [place] [address] 04/29/2023 Office Visit Gastroenterology Amberly Turner CRNP [address] [place] [address] 05/26/2023 Office Visit Gynecology [facility]in [facility]-C [address] [facility] [address] Scheduled Procedures Name Priority Associated Diagnoses Date/Ti [...] filedocumented as of this encounter Care Teams Fishing Rod Marker Relationship Specialty Start Date End Date Vanesa Solorzano, [address] [place] [address] PCP - General Family Medicine 09/21/18 documented as of this encounter
--- OUTSIDE RECORDS SUMMARY | 2023-04-06 06:17 | External Medical Summary ---
Author Name Unknown Address Unknown Organization K09:[facility] [place] [address] Laboratory Report Ordering Provider Test Date Status SYLWIA QUINTEROS 03/23/2023 07:29:12 Final Observation Date Value Abnormality Reference (Units ) Status Nucleated erythrocytes/100 leukocytes [Ratio] in Blood by Automated count 03/23/2023 07:29:12 Final Performing Location [facility] [place] [address]
--- OUTSIDE RECORDS SUMMARY | 2023-04-06 06:17 | External Medical Summary | Summary of Care ---
Author Name Unknown Organization [facility] Address [address] [place] [address] Phone [phone] Care Team Providers Care Senior Cyber Security Analyst Name Role Phone Vanesa Solorzano Primary Care Provider Encounter Details Date Type Department Care Team Description 03/15/2023 Orders Only Hematology/Oncology, [facility] [address] [place], [place] [phone] Crescencio Rosales MD [address] [place] [address] Allergies No known active allergiesdocumented as of this encounter (statuses as of 03/15/2023) Medications Medication Sig Dispensed Refills Start Date [...] as of this encounter (statuses as of 03/15/2023) Active Problems Problem Noted Date Encounter for [...] as of this encounter (statuses as of 03/15/2023) Resolved Problems Problem Noted Date Resolved Date Obesity, morbid (more than 1 00 lbs over ideal weight or BMI > 40) 01/08/2010 04/08/2019 Overview: Per Obesity Protocol, #19 ICD-10 update of inactive term Dyslipidemia, goal LDL below 100 09/15/2014 Obesity 04/08/2019 Overview: Per Obesity protocol documented as of this encounter (statuses as of 03/15/2023) Immunizations Name Administration Dates Next Due COVID-19 [...] Office Visit Neurology Greer Davis PA-C [address] [place] [address] 03/23/2023 Laboratory Laboratory [place], Lab Scenery [address] [place] [address] 03/24/2023 Hem/Onc Treatment Hematology Oncology [place], Chair 5 Hem Onc Scenery [address] [place] [address] 03/25/2023 Office Visit Palliative Medicine Mercedes Aranda MD [address] [place] [address] 04/29/2023 Office Visit Family Medicine Vanesa Solorzano, [address] [place] [address] 04/29/2023 Office Visit Gastroenterology Amberly Turner CRNP [address] [place] [address] 05/26/2023 Office Visit Gynecology Oncology Brayan Olguin PA-C [address] [place] [address] Health Maintenance Due Date Last Done Comments [...] this encounter Medical Devices Implanted Type Area Hair Tinter Device Identifier Shelf Expiration Date Model / Serial / Lot Port Implant W/8f Poly Cath - [id number] Implanted:Qty : 1 on 03/13/2023 by Krish Miller DO at OR [facility] Right: Chest CR BARD : PERIPHERAL VASCULAR [id number] 11/24/2023 [id number] / / [id number] documented as of this encounter Care Teams Senior Cyber Security Analyst Relationship Specialty Start Date End Date Vanesa Solorzano DO [address] [place], [place] [phone] PCP - General Family Medicine 09/21/18 documented as of this encounter
--- OUTSIDE RECORDS SUMMARY | 2023-04-06 06:17 | External Medical Summary | Summary of Care ---
Author Name Unknown Organization [facility] Address [address] [place] [address] Phone [phone] Care Team Providers Care Balance Wheel Facer Name Role Phone Vanesa Solorzano Primary Care Provider Reason for Visit * Reason Comments Outpatient Testing Encounter Details Date Type Department Care Team Description 03/04/2023 Laboratory Laboratory [address] [place] [address] [place] [address] [place], Lab Scenery [address] [place] [address] Malignant neoplasm of head of pancreas (HCC) [...] mRNA, LNP-s, No Pre serve, 2-Dose Series ([employer]) 10/16/2020,09/25/2020 Seasonal Influenza, Quadriva lent, No Preserve, [...] Visit Palliative Medicine Mercedes Aranda MD [address] [place] [address] NEW Palliative Visit 03/13/2023 Hospital Encounter Surgery Krish Miller DO [address] [place] [address] 03/13/2023 Surgery Surgery Krish Miller DO [address] [place] [address] INSERT TUNNELED CENTRAL VENOUS ACCESS WITH SUBQ PORT 03/20/2023 Office Visit Neurology Greer Davis PA-C [address] [place] [address] 04/29/2023 Office Visit Family Medicine Vanesa Solorzano DO [address] [place] [address] 04/29/2023 Office Visit Gastroenterology Amberly Turner CRNP [address] [place] [address] 05/26/2023 Office Visit Gynecology Oncology Brayan Olguin PA-C [address] [place] [address] Pending Results Name Type Priority Associated Diagnoses Date /Time HEPATITIS B CORE ANTIBODIES IGG AND IGM Lab STAT Malignant neoplasm of head of pancreas (HCC) 03/04/2023 12:37 PM EDT HEPATITIS B SURFACE ANTIGEN Lab STAT Malignant neoplasm of head of pancreas (HCC) 03/04/2023 12:37 PM EDT HEPATITIS B SURFACE ANTIBODY Lab STAT Malignant neoplasm of head of pancreas (HCC) 03/04/2023 12:37 PM EDT COMPREHENSIVE METABOLIC PANEL Lab STAT Malignant neoplasm of head of pancreas (HCC) 03/04/2023 12:37 PM EDT Scheduled Procedures Name Priority Associated Diagnoses Date/Ti [...] 09/2016, 09/09/2013, Additional history exists Diabetes Screening 02/18/2026 [...] Not on filedocumented as of this encounter Procedures Procedure Name Priority Date/Time Associated Diagnosis Comments DIFFERENTIAL, AUTOMATED STAT 03/04/2023 12:37 PM EDT Malignant neoplasm of head of pancreas (HCC) CBC WITH WBC DIFFERENTIAL STAT 03/04/2023 12:37 PM EDT Malignant neoplasm of head of pancreas (HCC) CBC STAT 03/04/2023 12:37 PM EDT Malignant neoplasm of head of pancreas (HCC) DIFFERENTIAL, TECHNOLOGIST REVIEW Routine 03/04/2023 12:37 PM EDT Malignant neoplasm of head of pancreas (HCC) documented in this encounter Results * DIFFERENTIAL, TECHNOLOGIST REVIEW (03/04/2023 12:37 PM EDT) Pathologist [facility] nRs 03/04/2023 12:43 PM EDT [facility] 56-02 Blood Venous blood specimen / Unknown Venipuncture / Unknown 03/04/2023 12:37 PM EDT 03/04/2023 12:37 PM EDT Crescencio [place]ales MD LAB BLOOD ORDERA BLES [facility] [address] [place] [address] * (ABNORMAL) DIFFERENTIAL, AUTOMATED (03/04/2023 12:37 PM EDT) [facility] WBC 11.96(H) 4.00 - 10.80 K/uL 03/04/2023 12:43 PM EDT [facility] 56-02 Neutrophils % 80.8(H) 40.0 - 75.0 % 03/04/2023 12:43 PM EDT [facility] 5602 Lymphocytes % 9.5(L) 18.0 - 42.0 % 03/04/2023 12:43 PM EDT [facility] 5602 Monocytes % 7.1 1.0 - 11.0 % 03/04/2023 12:43 PM EDT [facility] 56-02 Eosinophils % 2.3 0.0 - 6.0 % 03/04/2023 12:43 PM EDT [facility] 5602 Basophils % 0.3 0.0 - 2.0 % 03/04/2023 12:43 PM EDT [facility] 56-02 Absolute Neutrophils 9.66(H) 1.80 - 7.70 K/uL 03/04/2023 12:43 PM EDT [facility] 56-02 Absolute Lymphocytes 1.14 1.00 - 4.80 K/ul 03/04/2023 12:43 PM EDT [facility] 56-02 Absolute Monocytes 0.85 0.00 - 1.10 K/uL 03/04/2023 12:43 PM EDT [facility] 5602 Absolute Eosinophils 0.28 0.00 - 0.70 K/uL 03/04/2023 12:43 PM EDT [place] [address] Absolute Basophils 0.03 0.00 - 0.20 K/uL 03/04/2023 12:43 PM EDT [place] [address] Blood Venous blood specimen / Unknown Venipuncture / Unknown 03/04/2023 12:37 PM EDT 03/04/2023 12:37 PM EDT Crescencio [place]ales MD LAB BLOOD ORDERA BLES [place] [address] [place] [address] * (ABNORMAL) CBC (03/04/2023 12:37 PM EDT) WBC 11.96(H) 4.00 - 10.80 K/uL 03/04/2023 12:43 PM EDT [place] [address] RBC 3.91 3.85 - 5.15 M/uL 03/04/2023 12:43 PM EDT [place] [address] HGB 10.6(L) 12.0 - 15.3 g/dL 03/04/2023 12:43 PM EDT [place] [address] HCT 33.7(L) 36.0 - 45.2 % 03/04/2023 12:43 PM EDT [place] [address] MCV 86.2 81.5 - 97.5 fL 03/04/2023 12:[address] MCH 27.1 27.0 - 34.0 pg 03/04/2023 12:43 PM EDT [place] [address] MCHC 31.5 32.0 - 36.0 g/dL 03/04/2023 12:[address] RDW 16.1 11.5 - 15.5 % 03/04/2023 12:[address] PLT 152 140 - 400 K/uL 03/04/2023 12:43 PM [address]T [address] MPV 10.6 6.6 - 11.1 fL 03/04/2023 12:43 PM EDT [facility] [place] 56- Blood Venous blood specimen / Unknown Venipuncture / Unknown 03/04/2023 12:37 PM EDT 03/04/2023 12:37 PM EDT Crescencio [place]ales MD LAB BLOOD ORDERA BLES [facility] 56- [address] [place] [address] documented in this encounter Visit Diagnoses Diagnosis Malignant neoplasm of head of pancreas (HCC) Malignant neoplasm of head of pancreas Malignant neoplasm of head of pancreas (HCC) Malignant neoplasm of head of pancreas documented in this encounter Care Teams Balance Wheel Facer Relationship Specialty Start Date End Date Vanesa Solorzano, [address] [place] [address] PCP - General Family Medicine 09/21/18 documented as of this encounter
--- OUTSIDE RECORDS SUMMARY | 2023-04-06 06:17 | External Medical Summary | Summary of Care ---
Author Name Unknown Organization [facility] Address [address] [place] [address] Phone [phone] Care Team Providers Care Machine Tester Name Role Phone Vanesa Solorzano Primary Care Provider Reason for Visit * Reason Comments Outpatient Testing Encounter Details Date Type Department Care Team Description 03/23/2023 Laboratory Laboratory [address] [place] [address] [place] [address] [place], Lab Scenery [address] [place] [address] Malignant neoplasm of head of pancreas (HCC) [...] Chair 5 Hem Onc Scenery [address] [place] [address] 03/25/2023 Office Visit Palliative Medicine Mercedes Aranda MD [address] [facility] [place] [id number] 04/29/2023 Office Visit Family Medicine Vanesa Solorzano DO [address] [place] [address] 04/29/2023 Office Visit Gastroenterology Amberly Turner CRNP [address] [place] [address] 05/26/2023 Office Visit Gynecology Oncology Brayan Olguin PA-C [address] [place] [address] 06/16/2023 Office Visit Neurology Greer Davis PA-C [address] [place] [address] Pending Results Name Type Priority Associated Diagnoses [...] this encounter Medical Devices Implanted Type Area Trade Show Specialist Device Identifier Shelf Expiration Date Model / Serial / Lot Port Implant W/8f Poly Cath - [id number] Implanted:Qty : 1 on 03/13/2023 by Krish Miller DO at OR [facility] Right: Chest CR BARD : PERIPHERAL VASCULAR [id number] 11/24/2023 [id number] / / [id number] documented as of this encounter Visit Diagnoses Diagnosis Malignant neoplasm of head of pancreas (HCC) Malignant neoplasm of head of pancreas documented in this encounter Care Teams Machine Tester Relationship Specialty Start Date End Date Vanesa Solorzano DO [address] [place] [address] PCP - General Family Medicine 09/21/18 documented as of this encounter
--- OUTSIDE RECORDS SUMMARY | 2023-04-06 06:18 | External Medical Summary | Summary of Care ---
Author Name Unknown Organization [facility] Address [address] [place] [address] Phone [phone] Care Team Providers Care Salt Manager Name Role Phone Vanesa Solorzano Primary Care Provider Reason for Referral * Evaluate & Treat - Unlimited Visits (Within 10 days (routine)) - Pending Review Specialty Diagnoses / Procedures Referred By Todd young Referred To Contact Hospice and Palliative Medicine / Palliative Medicine Diagnoses Malignant neoplasm of head of pancreas (HCC) Crescencio Rosales MD [address] [place] [address] Referral ID Status Reason Start Date Expiration Date Visits Requested Visits Authorized [id number] Pending Review Specialty Services Required 02/17/[phone] Question Answer Referral Priority Within 10 days (routine) Reason for Referral: Cancer Palliative Medicine To Address: Pain & Symptom Management Is this referral for [facility]iative service? ([facility] Insurance Only) No Reason for Visit * Reason Comments Consultation Consult * Evaluate & Treat - Unlimited Visits (Within 10 days (routine)) - Pending Review Specialty Diagnoses / Procedures Referred By Todd young Referred To Contact Hematology/Oncology / Hematology Oncology Diagnoses Malignant neoplasm of head of pancreas (HCC) Odilia Ring DO [address] [facility] [address] Referral ID Status Reason Start Date Expiration Date Visits Requested Visits Authorized [id number] Pending Review Specialty Services Required 02/13/[phone] Encounter Details Date Type Department Care Team Description 02/17/2023 Office Visit Hematology/Oncology [facility] [place] [address] Crescencio Rosales MD [address] [place] [address] Malignant neoplasm of head of pancreas (HCC)* Allergies No known active allergiesdocumented as of this encounter (statuses as of 02/27/2023) Medications Medication Sig Dispensed Refills Start Date End Date Status TYLENOL 325 MG PO TABS uses as needed 0 Active Nitroglycerin 0.3 MG Sublingual Tablet Sublingual (NITROSTAT)Indicat ions:Chest pain, unspecified type Place 1 Tab under the tongue as needed for Pain, Chest. May repeat 3 times. If chest pain continues, call 911. 25 Tab 11 05/31/2020 Active Pantoprazole Sodium 40 MG Oral Tablet Delayed Release (Protonix) Take 1 Tablet by mouth in the morning. 0 Active Apixaban 5 MG Oral Tablet (Eliquis)Indicatio ns:Acute CVA (cerebrovascular accident) (HCC),Paroxysmal atrial flutter (HCC) [...] and 1 Tablet before bedtime. 0 Active Losartan Potassium 50 MG Oral Tablet (Cozaar) Take 1 Tablet by mouth in the morning and 1 Tablet before bedtime. 0 01/20/2023 02/19/2023 Discontinued (Medication/ Dose Changed) oxyCODONE HCl 5 MG Oral Tablet (Oxy IR) Take 1 Tablet by mouth every 8 hours as needed. 0 02/09/2023 02/19/2023 Discontinued (Medication/ Dose Changed) Ciprofloxacin HCl 500 MG Oral Tablet (Cipro) Take 1 Tablet by mouth in the morning and 1 Tablet before bedtime. 0 02/19/2023 Discontinued (Medication/ Dose Changed) documented as of this encounter (statuses as of 02/27/2023) Active Problems Problem Noted Date Pancreatic cancer 02/13/2023 Endometrial cancer 02/04/2023 Acute CVA (cerebrovascular accident) 09/2022 Anxiety 01/26/2023 Elevated troponin 01/26/2023 Genetic carrier status 01/26/2023 Intermittent abdominal pain 01/26/2023 Paroxysmal atrial flutter 01/26/2023 SVT (supraventricular tachycardia) 01/26 Weakness 01/26/2023 Acute left hemiparesis 01/26/2023 Obesity, morbid, BMI 40.0-49.9 9 Overview: Per Obesity protocol documented as of this encounter (statuses as of 02/27/2023) Resolved Problems Problem Noted Date Resolved Date Obesity, morbid (more than 1 00 lbs over ideal weight or BMI > 40) 01/08/2010 04/08/2019 Overview: Per Obesity Protocol, #19 ICD-10 update of inactive term Dyslipidemia, goal LDL below 100 09/15/2014 Obesity 04/08/2019 Overview: Per Obesity protocol documented as of this encounter (statuses as of 02/27/2023) Immunizations Name Administration Dates Next Due COVID-19 [...] Sign Reading Time Taken Comments Blood Pressure 118/72 02/17/2023 8:13 AM EDT Pulse 81 02/17/2023 8:13 AM EDT Temperature 36.9 C (98.4 F) 02/17/2023 8:13 AM ED T Respiratory Rate 18 02/17/2023 8:13 AM EDT Oxygen Saturation 93% 02/17/2023 8:13 AM EDT Inhaled Oxygen Concentration - - Weight 112.9 kg (249 lb) 02/17/2023 8:13 AM EDT Height 162.6 cm (5' 4") 02/17/2023 8:13 AM EDT Body Mass Index 42.74 02/17/2023 8:13 AM EDT documented in this encounter Progress Notes * Crescencio Rosales MD - 02/17/2023 8:12 AM EDT Outpatient Consult Note Data Source: Patient, Epic record. 02/17/2023 8:12 AM Jacque Spivey [id number] 62 year old DO Odilia Mitchell DO Patient Encounter: HEMATOLOGY/ONCOLOGY [facility] Reason for consult: Malignant neoplasm of head of pancreas HPI: 62-year-old female with complicated past medical history including cardiovascular disease, atrial fibrillation, recent incidence of CVA affecting the left side of the body, anxiety, hyperlipidemia was referred with the recent diagnosis of pancreatic cancer. She recently presented also with vaginal b leeding after endometrial biopsy while on Eliquis. She is complaining of abdominal pain and had CT scan of the abdomen pelvis done on 01/02/2023 whichrevealed 4.3 cm ill-defined pancreatic head mass resulting in upstream pancreatic ductal dilation. Evaluation is limited without the use of IV contrast, however the imaging characteristics are suspicious for adenocarcinoma. GI consultation with endoscopy and tissue sampling recommended,pancreatic mass abuts and possibly infiltrates the adjacent duodenum . No obstruction, no evidence of metastaticdisease. She also had MRI of the abdomen done which revealed pancreatic head mass is known to enhance with some central hypoenhancement compatible with malignancy with central necrosis. No vascular involvement is seen. There is a subcentimeter adjacent lymph node. On abdominal ultrasound she was found to have pathologic thickening of the postmenopausal endometrium. She had upper endoscopy and endoscopic ultrasound done which revealed dilatation of common bile duct and stricture in the lower 3rd of the main bile duct because of mass in the pancreatic head, therewas a mass in the head of the pancreas measured 45 x 35 mm with irregular outer margins with sonographic evidence suggesting invasion of the portal vein, there was 1 in large lymph node the paradise hepatis reason measuring 6 x 5 mm. FNA from the pancreatic mass is consistent with ductal adenocarcinoma. FINAL DIAGNOSIS Pancreas, head (fine-needle aspiration): - Pancreatic ductal adenocarcinoma is seen. - Please see microscopic description. Screened by on at . She also had endometrial biopsy done because of the abnormal finding on the ultrasound and pathology is consistent with endometrioid carcinoma. She also had episode of bleeding post biopsy while she was taking Eliquis. Final Diagnosis A. 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 Results: Normal/Positive expression of MLH-1, MSH-2, MSH-6 and PMS-2 in endometrial adenocarcinoma cells (Table 1 below). Table1. Summary of Immunostaining Results Marker/Tissue Adenocarcinoma Normal Tissue MLH-1 Positive Positive MSH-2 Positive Positive MSH-6 Positive Positive PMS-2 Positive Positive CA 19-9 level was 2311, CEA level was 27.4 and CA 125 was 259.8. She is complaining of generalized weakness. She also had recently episode of left-sided CVA which is now improving and she is going through physical therapy. She continued taking Eliquis. She is complaining of episode of abdominal pain and discomfort feeling with episodes of nausea. She denies smoking. Drinks alcohol socially. Family history significant for father was diagnosed of prostate cancer. Paternal grandmother was diagnosed of breast cancer. Paternal uncle was diagnosed of brain cancer and another paternal uncle was diagnosed of prostate cancer. Past Medical History: Diagnosis Date Acute CVA (cerebrovascular accident) (HCC) 01/26/2023 Acute left hemiparesis (HCC) 01/26/2023 Anxiety 01/26/2023 Dyslipidemia, goal LDL below 130 Endometrial carcinoma (HCC) 02/04/2023 Gestational hypertension Mass of pancreas 01/26/2023 Obesity, morbid, BMI 40.0-49.9 ([facility]) 04/04/2019 Per Obesity protocol Other screening mammogram 03/10/2005 wnl per [facility] at Paroxysmal atrial flutter ([facility]) 01/26/2023 SVT (supraventricular tachycardia) ([facility]) 01/26/2023 Current Outpatient Medications Medication Sig Dispense Refill TYLENOL 325 MG PO TABS uses as needed Nitroglycerin 0.3 MG Sublingual Tablet Sublingual (NITROSTAT) Place 1 Tab under the tongue as needed for Pain, Chest. May repeat 3 times. If chest pain continues, call 911. 25 Tab 11 Pantoprazole Sodium 40 MG Oral Tablet Delayed Release (Protonix) Take 1 Tablet by mouth in the morning. Losartan Potassium 50 MG Oral Tablet (Cozaar) Take 1 Tablet by mouth in the morning and 1 Tablet before bedtime. Apixaban 5 MG Oral Tablet (Eliquis) Take 1 Tablet by mouth in the morning and 1 Tablet before bedtime. (Patient not taking: Reported on 02/13/2023) 60 Tablet 11 Simethicone 125 MG Oral Capsule Take 1 Capsule by mouth. Megestrol Acetate 20 MG Oral Tablet (Megace) Take 1 Tablet by mouth in the morning and 1 Tabletbefore bedtime. oxyCODONE HCl 5 MG Oral Tablet (Oxy IR) Take 1 Tablet by mouth every 8 hours as needed. Ciprofloxacin HCl 500 MG Oral Tablet (Cipro) Take 1 Tablet by mouth in the morning and 1 Tabletbefore bedtime. Metoprolol Succinate ER 25 MG Oral Tablet Extended Release 24 Hour (toPROL XL) Take 1 Tablet bymouth in the morning and 1 Tablet before bedtime. No current facility-administered medications for this visit. Social History Socioeconomic History Marital status: Spouse name: You Number of children: 2 Years of education: Not on file Highest education level: Not on file Occupational History Occupation: [employer] Employer: [employer] Comment: [employer] Occupation: [employer] Comment: 2009 Tobacco Use Smoking status: Never Smokeless tobacco: Never Substance and Sexual Activity Alcohol use: Yes Comment: Occasionally Drug use: No Sexual activity: Yes Partners: Male control/protection: Surgical Comment: BTL Other Topics Concern Not on file Social History Narrative Working at [employer]. Son George, and living with her. And [...] Brother Hypertension Brother Breast Cancer Grandmother (Paternal) REVIEW OF SYSTEMS: General: No Fever, chills, night sweats HEENT: No change in visual acuity, blurred or double vision. No epistaxis, facial pain, nasal discharge or change in hearing. Denies dysphagia, no muscosal ulceration, or sores noted. Cardiovascular: No chest pain, SWAIN, or palpitations Respiratory: No shortness of breath, cough, hemoptysis, or pleuritic chest pain Gastrointestinal: Abdominal discomfort, nausea,No vomiting, diarrhea, rectal pain or bleeding Genitourinary: Denies Hematuria or dysuria Musculoskeletal: No bone pain Skin: No skin rash or lesions noted Neurologic: Weakness on the left side of the body Psychiatric: No vegetative signs of depression Endocrine: No symptoms of hypothyroidism or hyperglycemia Hematologic: No bleeding or lymph nodes noted As mentioned above, all other systems were reviewed in full and are unremarkable. Review of patient's allergies indicates: No Known Allergies PHYSICAL EXAMINATION: General Appearance: Healthy appearing patient in no acute distress, in wheelchair There were no vitals taken for this visit. Vitals were reviewed. HEENT: No oral or pharyngeal masses, ulceration or thrush noted, no sinus tenderness. Neck is supple with no thyromegaly or JVD noted. Lymph Nodes: No lymphadenopathy noted in the occipital, pre and post auricular, cervical, supra andinfraclavicular, axillary, epitrochlear, inguinal, and popliteal region. Lungs/Thorax: Clear to auscultation, no accessory muscles of respiration being used. Heart: Regular rate and rhythm, normal S1, S2. Abdomen: Soft, generalized abdominal discomfort, bowel sounds present, no appreciable hepatosplenomegaly, no palpable masses Extremeties: Good pulses bilaterally, no peripheral edema. Skin: Normal skin tone with no rash, petechiae, ecchymosis noted. Musculoskeletal: No pain on palpation over bony prominence, no edema, no evidence of gout, no jointor bony deformity ASSESSMENT: 62-year-old female with complicated past medical history including cardiovascular disease, atrial fibrillation, recent incidence of CVA affecting the left side of the body, anxiety, hyperlipidemia was referred with the recent diagnosis of pancreatic cancer. She also had episode of vaginal bleeding.She had abnormal thickening of the endometrium and had biopsy done which again is consistent with endometrial endometrial carcinoma in the background of intraepithelial neoplasm. She is also recovering from the recent to CV on the left side. She will be seen by garment sorter oncology tomorrow and appointmentfor the surgical Oncology was requested by Dr. Ring. She has 2 malignancy. Pancreatic cancer seems to be locally advanced disease involving the pancreatic head with invasion of the portal vein. She seems to have local disease. She was also diagnosed ofendometrial carcinoma. She also had recent incidents of CVA affecting the left side of the body. Most likely this may be malignancy induced and should continue anticoagulation. Further management of the pancreatic cancer well depend on the recommendation from the surgical team. She also had elevated CA 19-9 level. For endometrial cancer she will be seen by the garment sorter oncologist tomorrow. Discussed with the patient and in detail about diagnosis and reviewed all the available pathology and CT scan and endoscopic finding with them. [facility] from [facility] were reviewed. PLAN: As above. She will return to clinic in 3 weeks. Further management will depend on the recommendation from Surgical team and also from the garment sorter Oncology team. The patient voiced understanding of all of the above. All questions and concerns were addressed in an apparently satisfactory manner. Crescencio Rosales MD (This note was completed using the dictation program Fluency Direct. As such, there may be misspellings, word substitutions, or other variations that should not change the essence of the clinical content of this encounter note. If there is need for further clarification, please direct questions to me.) documented in this encounter Nursing Notes * Christi Tong Nivia, [employer] - 02/17/2023 8:16 AM EDT Patient identifed by name and birthdate Do you have any concerns about pain management for today's visit? YES Living Will or Advance Directive for Health Care as noted on the problem list. [employer] is a way you can talk to your provider on line through e-mail. Would you like to sign up? I can activate it for you? NO Filed Vitals: 02/17/23 0813 BP: 118/72 Pulse: 81 Resp: 18 Temp: 36.9 C (98.4 F) TempSrc: Tympanic SpO2: 93% Weight: 112.9 kg (249 lb) Height: 1.626 m (5' 4") Patient was instructed to not get up on the exam table/exam chair until directed and assisted by their provider; patient is to remain seated in the chair/ wheelchair/ exam table/ exam chair for fall prevention and safety reasons. Patient is aware to have assistance to step down off exam table/exam chair with personnel. Patient voiced full comprehension of instructions. documented in this encounter Plan of Treatment Upcoming Encounters Date Type Specialty Care Team Description 03/02/2023 Office Visit Hematology Oncology Crescencio Rosales MD [address] [facility] [place] [address] 03/20/2023 Office Visit Neurology Greer Davis PA-C [address] [place] [address] 03/25/2023 Office Visit Palliative Medicine Mercedes Aranda MD [address] [place] [address] [place] [address] 04/29/2023 Office Visit Family Medicine Vanesa Solorzano DO [address] [place] [address] 04/29/2023 Office Visit Gastroenterology Amberly Turner CRNP [address] [place] [address] 05/26/2023 Office Visit Gynecology Oncology Brayan Olguin [facility]-C [address] [facility] [address] Scheduled Referrals Name Type Priority Associated Diagnoses Orde r Schedule PALLIATIVE CARE REFERRAL OP Referral Within 10 days (routine) Malignant neoplasm of head of pancreas (HCC) Ordered: 02/17/2023 Health Maintenance Due Date Last Done Comments [...] Primary Malignant neoplasm of head of pancreas documented in this encounter Care Teams Salt Manager Relationship Specialty Start Date End Date Vanesa Solorzano, [address] [place] [address] PCP - General Family Medicine 09/21/18 documented as of this encounter
--- OUTSIDE RECORDS SUMMARY | 2023-04-06 06:18 | External Medical Summary | Summary of Care ---
Author Name Unknown Organization [facility] Address [address] [place] [address] Phone [phone] Care Team Providers Care Transcribing Operators Supervisor Name Role Phone Vanesa Solorzano Primary Care Provider Encounter Details Date Type Department Care Team Description 03/03/2023 Nurse Only Hematology/Oncology [facility] [address] [place] [address] Walsh, Nurse Hem Onc [facility] [address] [place] [address] Arrived Allergies No known active allergiesdocumented as of this encounter (statuses as of 03/03/2023) Medications Medication Sig Dispensed Refills Start Date End Date Status TYLENOL 325 MG PO TABS uses as needed 0 Active Nitroglycerin 0.3 MG Sublingual Tablet Sublingual (NITROSTAT)Indication s:Chest pain, unspecified type Place 1 Tab under the tongue as needed for Pain, Chest. May repeat 3 times. If chest pain continues, call 911. 25 Tab 11 05/31/2020 Active Pantoprazole Sodium 40 MG Oral Tablet Delayed Release (Protonix) Take 1 Tablet by mouth in the morning. 0 Active Apixaban 5 MG Oral Tablet (Eliquis)Indications: Acute CVA (cerebrovascular accident) (HCC),Paroxysmal atrial flutter (HCC) [...] Active Prochlorperazine Maleate 10 MG Oral Tablet (Compazine)Indication s: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 30 Tablet 0 03/02/2023 Active Ondansetron HCl 8 MG Oral TabletIndications:Mal ignant neoplasm of head of pancreas (HCC) Take 1 Tablet by mouth every 8 hours as needed for Nausea. 30 Tablet 0 03/02/2023 Active documented as of this encounter (statuses as of 03/03/2023) Active Problems Problem Noted Date Encounter for [...] as of this encounter (statuses as of 03/03/2023) Resolved Problems Problem Noted Date Resolved Date Obesity, morbid (more than 1 00 lbs over ideal weight or BMI > 40) 01/08/2010 04/08/2019 Overview: Per Obesity Protocol, #19 ICD-10 update of inactive term Dyslipidemia, goal LDL below 100 09/15/2014 Obesity 04/08/2019 Overview: Per Obesity protocol documented as of this encounter (statuses as of 03/03/2023) Immunizations Name Administration Dates Next Due COVID-19 [...] Visit Palliative Medicine Mercedes Aranda MD [address] [facility] [place] [id number] 03/20/2023 Office Visit Neurology Greer Davis PA-C [address] [facility] [place] [address] 04/29/2023 Office Visit Family Medicine Vanesa Solorzano DO [address] [place] [address] 04/29/2023 Office Visit Gastroenterology Amberly Turner CRNP [address] [place] [address] 05/26/2023 Office Visit Gynecology Oncology Brayan Olguin PA-C [address] [place] [address] Health Maintenance Due Date Last Done Comments [...] filedocumented as of this encounter Care Teams Transcribing Operators Supervisor Relationship Specialty Start Date End Date Vanesa Solorzano, [address] [place] [address] PCP - General Family Medicine 09/21/18 documented as of this encounter
--- OUTSIDE RECORDS SUMMARY | 2023-04-06 06:18 | External Medical Summary | Summary of Care ---
Author Name Unknown Organization [facility] Address [address] [place] [address] Phone [phone] Care Team Providers Care Podiatry Assistant Name Role Phone Vanesa Solorzano Primary Care Provider Reason for Referral * Evaluate & Treat - Unlimited Visits (Within 10 days (routine)) - Pending Review Specialty Diagnoses / Procedures Referred By Todd young Referred To Contact Hospice and Palliative Medicine / Palliative Medicine Diagnoses Malignant neoplasm of head of pancreas (HCC) Crescencio Rosales MD [address] [place] [address] Referral ID Status Reason Start Date Expiration Date Visits Requested Visits Authorized [id number] Pending Review Specialty Services Required 02/17/2023 999 999 Question Answer Referral Priority Within 10 days (routine) Reason for Referral: Cancer Palliative Medicine To Address: Pain & Symptom Management Is this referral for [facility] Palliative service? ([facility] Insurance Only) No Reason for Visit * Reason Comments Consultation Consult * Evaluate & Treat - Unlimited Visits (Within 10 days (routine)) - Pending Review Specialty Diagnoses / Procedures Referred By Todd young Referred To Contact Hematology/Oncology / Hematology Oncology Diagnoses Malignant neoplasm of head of pancreas (HCC) Odilia Ring DO [address] [facility] [place] [address] Referral ID Status Reason Start Date Expiration Date Visits Requested Visits Authorized [id number] Pending Review Specialty Services Required 02/13/[phone] Encounter Details Date Type Department Care Team Description 02/17/2023 Office Visit Hematology/Oncology [place] [facility] [place] [address] Crescencio Rosales MD 200 [facility] [place] [address] Malignant neoplasm of head of pancreas (HCC)* [...] of 02/27/2023) Active Problems Problem Noted Date Encounter for [...] Epic record. 02/17/2023 8:12 AM Jacque Spivey [id number] 62 year old DO Odilia Mitchell DO Patient Encounter: [facility]ATOLOGY[facility]COL[facility]Y [facility] Reason for consult: Malignant neoplasm of [...] of pancreas 01/26/2023 Obesity, morbid, BMI 40.0-49.9 ([facility]) 04/04/2019 Per Obesity protocol Other screening mammogram 03/10/2005 wnl per [place] at Paroxysmal atrial flutter ([facility]) 01/26/2023 SVT (supraventricular tachycardia) ([facility]) 01/26/2023 Current Outpatient Medications Medication Sig Dispense [...] level: Not on file Occupational History Occupation: collegefeed Employer: [employer] [place] Occupation: [employer] Comment: 2009 Tobacco Use Smoking status: Never Smokeless tobacco: Never Substance and Sexual Activity Alcohol use: Yes Comment: Occasionally Drug use: No Sexual activity: Yes Partners: Male control/protection: Surgical Comment: BTL Other Topics Concern Not on file Social History Narrative Working at [employer]. Son George, and living with her. And [...] left side. She will be seen by trim stencil maker oncology tomorrow and appointmentfor the surgical Oncology [...] cancer she will be seen by the trim stencil maker oncologist tomorrow. Discussed with the patient and in detail about diagnosis and reviewed all the available pathology and CT scan and endoscopic finding with them. Records from [facility] were reviewed. PLAN: As above. She will return to clinic in 3 weeks. Further management will depend on the recommendation from Surgical team and also from the trim stencil maker Oncology team. The patient voiced understanding of [...] in this encounter Nursing Notes * Christi Gonzáles LPN - 02/17/2023 8:16 AM EDT Patient identifed by name and birthdate Do you have any concerns about pain management for today's visit? YES Living Will or Advance Directive for Health Care as noted on the problem list. [facility] is a way you can talk to [...] comprehension of instructions. documented in this encounter Miscellaneous Notes * Addendum Note - ROMANA Robles - 02/27/2023 3:44 PM EDTAddended by: JOSUE LANG on: 02/27/2023 03:44 PM Modules accepted: Orders documented in this encounter Plan of Treatment Upcoming Encounters Date Type Specialty Care Team Description 03/02/2023 Office Visit Hematology Oncology [facility] [address] 03/20/2023 Office Visit Neurology Greer Davis PA-C [address] [place] [address] 03/25/2023 Office Visit Palliative Medicine Mercedes Aranda MD [address] [place] [address] [place] [address] 04/29/2023 Office Visit Family Medicine Vanesa Solorzano, DO [address] [place] [address] 04/29/2023 Office Visit Gastroenterology Amberly Turner CRNP [address] [place] [address] 05/26/2023 Office Visit Gynecology Oncology Brayan Olguin PA-C [address] [place] [address] Pending Results Name Type Priority Associated Diagnoses Date /Time PATHOLOGY STAIN ONLY Pathology Routine Malignant neoplasm of head of pancreas (HCC) 02/27/2023 3:44 PM EDT Scheduled Referrals Name Type Priority [...] pancreas documented in this encounter Care Teams Podiatry Assistant Relationship Specialty Start Date End Date Vanesa Solorzano, [address] [place] [address] PCP - General Family Medicine 09/21/18 documented as of this encounter
--- OUTSIDE RECORDS SUMMARY | 2023-04-06 06:18 | External Medical Summary | Summary of Care ---
Author Name Unknown Organization [facility] Address [address] [place] [address] Phone [phone] Care Team Providers Care Sales Promotion Representative Name Role Phone Vanesa Solorzano Primary Care Provider Encounter Details Date Type Department Care Team Description 03/03/2023 Orders Only Hematology/Oncology, [facility] [address] [place], [place] [id number] Crescencio Rosales MD [address] [place] [address] Allergies No known active allergiesdocumented as of [...] 3 times. If chest pain continues, call [phone]. [phone] Tab 11 05/31/2020 Active Pantoprazole Sodium 40 [...] Encounters Date Type Specialty Care Team Description 03/03/2023 Nurse Only Hematology Oncology [place], Nurse Hem Onc [facility] [address] [place] [address] 03/20/2023 Office Visit Neurology Greer Davis PA-C 21 [facility] [place] [address] 03/25/2023 Office Visit Palliative Medicine Mercedes Aranda MD [address] [place] [address] [place] [address] 04/29/2023 Office Visit Family Medicine Vanesa Solorzano DO [address] [place] [address] 04/29/2023 Office Visit Gastroenterology Amberly Turner CRNP [address] [place] [address] 05/26/2023 Office Visit Gynecology Oncology Brayan Olguin PA-C [address] [facility] [place] [address] Health Maintenance Due Date Last Done Comments [...] 03/09/2016, 09/09/2013, Additional history exists Diabetes Screening 02/18/2026 [...] filedocumented as of this encounter Care Teams Sales Promotion Representative Relationship Specialty Start Date End Date Vanesa Solorzano, DO [address] [place] [address] PCP - General Family Medicine 09/21/18 documented as of this encounter
--- OUTSIDE RECORDS SUMMARY | 2023-04-06 06:18 | External Medical Summary ---
Author Name Unknown Address Unknown Organization [id number]:[facility] [facility] [address] [place] [address] Laboratory Report Ordering Provider Test Date Status VARUN QUINTEROSON 03/04/2023 12:37:12 Final Observation Date Value Abnormality Reference (Units) Status Hepatitis B virus surface Ab [Units/volume] in Serum or Plasma by Immunoassay 03/04/2023 12:37:12 <3.5 (mIU/mL) Final Hepatitis B virus surface Ab [Presence] in Serum by Immunoassay 03/04/2023 12:37:12 Negative Final HEPATITIS B SURFACE ANTIBODY, INTERPRETATION 03/04/2023 12:37:12 NOT immune to Hepatitis B Virus Final Performing Location [facility] [place] [address] [place] [address]
--- OUTSIDE RECORDS SUMMARY | 2023-04-06 06:18 | External Medical Summary | Summary of Care ---
Author Name Unknown Organization [facility] Address [address] [place] [address] Phone [phone] Care Team Providers Care Diamond Cutter Name Role Phone Vanesa Solorzano Primary Care Provider Reason for Visit * Reason Onset Date Comments Appointment 02/24/2023 Encounter Details Date Type Department Care Team Description 02/24/2023 Telephone Hematology/Oncology Treatment, [place] [address] [place] [phone] Crescencio Rosales MD [address] [place] [address] Appointment Allergies No known active allergiesdocumented as of this encounter (statuses as of 02/24/2023) Medications Medication Sig Dispensed Refills Start Date End Date Status TYLENOL 325 MG PO TABS uses as needed 0 Active Nitroglycerin 0.3 MG Sublingual Tablet Sublingual (NITROSTAT)Indication s:Chest pain, unspecified type Place 1 Tab under the tongue as needed for Pain, Chest. May repeat 3 times. If chest pain continues, call 911. 88 Tab 11 05/31/2020 Active Pantoprazole Sodium 40 [...] and 1 Tablet before bedtime. 0 Active documented as of this encounter (statuses as of 02/24/2023) Active Problems Problem Noted Date Encounter for [...] as of this encounter (statuses as of 02/24/2023) Resolved Problems Problem Noted Date Resolved Date Obesity, morbid (more than 1 00 lbs over ideal weight or BMI > 40) 01/08/2010 04/08/2019 Overview: Per Obesity Protocol, #19 ICD-10 update of inactive term Dyslipidemia, goal LDL below 100 09/15/2014 Obesity 04/08/2019 Overview: Per Obesity protocol documented as of this encounter (statuses as of 02/24/2023) Immunizations Name Administration Dates Next Due COVID-19 mRNA, LNP-s, No Pre serve, 2-Dose Series (Delectable) 10/16/2020,09/25/2020 Seasonal Influenza, Quadriva lent, No Preserve, [...] Telephone Encounter - Ayana Carr RN - 02/24/2023 12:[address] Rosales received a message from Dr Steiner- patient/ family are requesting to see Dr Rosales sooner than scheduled 03/11/23 to discuss treatment. Scheduling: please follow up with patient to offer sooner appt with Dr Rosales. Thanks! documented in this encounter Plan of Treatment Upcoming Encounters Date Type Specialty Care Team Description 03/11/2023 Office Visit Hematology Oncology Crescencio Rosales MD [address] [place] [address] 03/20/2023 Office Visit Neurology Greer Davis PA-C 21 [facility] [place] [address] 03/25/2023 Office Visit Palliative Medicine Mercedes Aranda MD 400 [facility] [place] [address] 04/29/2023 Office Visit Family Medicine Vanesa Solorzano, [address] [place] [address] 04/29/2023 Office Visit Gastroenterology Amberly Turner CRNP [address] [place] [address] 05/26/2023 Office Visit Gynecology Oncology Brayan Olguin PA-C [address] [facility] [place] [address] Health Maintenance Due Date Last Done Comments [...] filedocumented as of this encounter Care Teams Diamond Cutter Relationship Specialty Start Date End Date Vanesa Solorzano, [address] [place] [address] PCP - General Family Medicine 09/21/18 documented as of this encounter
--- OUTSIDE RECORDS SUMMARY | 2023-04-06 06:18 | External Medical Summary ---
Author Name Unknown Address Unknown Organization [id number]:[facility] [place] [address] [place] [address] Laboratory Report Ordering Provider Test Date Status SYLWIA QUINTEROS 03/04/2023 12:37:12 Final Observation Date Value Abnormality Reference (Units ) Status Folic Acid 03/04/2023 12:37:12 7.6 >4.5 (ng/ mL) Final Performing Location [facility] - [address] [place] [address]
--- OUTSIDE RECORDS SUMMARY | 2023-04-06 06:18 | External Medical Summary | Summary of Care ---
Author Name Unknown Organization [facility] Address [address] [place] [address] Phone [phone] Care Team Providers Care Brush Stainer Name Role Phone Vaneas Solorzano Primary Care Provider Reason for Visit * Reason Onset Date Comments Precert Future 02/18/2023 FOLFIRINOX Encounter Details Date Type Department Care Team Description 02/18/2023 Telephone Hematology/Oncology Treatment, [place] 200 [facility] [place] [phone] Crescencio Rosales MD [address] [place] [address] Precert Future (FOLFIRINOX) Allergies No known active [...] times. If chest pain continues, call 911. 46 Tab 11 05/31/2020 Active Pantoprazole Sodium 40 [...] to proceed with chemotherapy. Consent signed 03/02/23. [facility] referral TE sent. Patient still needs mediport- not scheduled. Nurse education 03/03/23. Patient will need hep B labs. * Telephone Encounter - Ayana Carr RN - 02/18/2023 11:36 AM EDT Order received for FOLFIRINOX. [place] plan placed on hold- patient has appt with [place] working supervisor/onc for endometrial cancer 02/18/23, also scheduled to see gen surg 02/24/23 to discuss surgical options. Patient is returning 03/11/[address] Rosales and decide on proceeding with chemotherapy. documented in this encounter Plan of Treatment Upcoming Encounters Date Type Specialty Care Team Description 03/03/2023 Nurse Only Hematology Oncology [place], Nurse Hem Onc [facility] 200 [place] [address] 03/20/2023 Office Visit Neurology Greer Davis PA-C [address] [place] [address] 03/25/2023 Office Visit Palliative Medicine Mercedes Aranda MD [address] [place] [address] 04/29/2023 Office Visit Family Medicine Vanesa Solorzano, [address] [place] [address] 04/29/2023 Office Visit Gastroenterology Amberly Turner CRNP [facility] [place] [address] 05/26/2023 Office Visit Gynecology Oncology Brayan Olguin PA-C [address] [place] [address] Scheduled Orders Name Type Priority Associated Diagnoses Orde r Schedule CBC WITH WBC DIFFERENTIAL Lab STAT Malignant neoplasm of head of pancreas (HCC) Every 2 Weeks for 26 Occurrences starting 03/03/2023 until 03/03/2024 COMPREHENSIVE METABOLIC PANEL Lab STAT Malignant neoplasm of head of pancreas (HCC) Every 2 Weeks for 26 Occurrences starting 03/03/2023 until 03/03/2024 HEPATITIS B SURFACE ANTIBODY Lab STAT Malignant neoplasm of head of pancreas (HCC) Expected: 03/03/2023 (Approximate), Expires: 03/03/2024 HEPATITIS B SURFACE ANTIGEN Lab STAT Malignant neoplasm of head of pancreas (HCC) Expected: 03/03/2023 (Approximate), Expires: 03/03/2024 HEPATITIS B CORE ANTIBODIES IGG AND IGM Lab STAT Malignant neoplasm of head of pancreas (HCC) Expected: 03/03/2023 (Approximate), Expires: 03/03/2024 Health Maintenance Due Date Last Done Comments [...] pancreas documented in this encounter Care Teams Brush Stainer Relationship Specialty Start Date End Date Vanesa Solorzano, [address] [place] [address] PCP - General Family Medicine 09/21/18 documented as of this encounter
--- OUTSIDE RECORDS SUMMARY | 2023-04-06 06:18 | External Medical Summary ---
Author Name Unknown Address Unknown Organization K01:[facility] - [address] [place] [address] Laboratory Report Ordering Provider Test Date Status SYLWIA QUINTEROS 03/04/2023 12:37:12 Final Observation Date Value Abnormality Reference (Units ) Status Hep B surface Ag 03/04/2023 12:37:12 Negative Neg ative Final Performing Location [facility] - [address] [place] [address]
--- OUTSIDE RECORDS SUMMARY | 2023-04-06 06:18 | External Medical Summary ---
Author Name Unknown Address Unknown Organization K09:[facility] [address] Laboratory Report Ordering Provider Test Date Status SYLWIA QUINTEROS 03/04/2023 12:37:12 Final Observation Date Value Abnormality Reference (Units ) Status WBC, Total 03/04/2023 12:37:12 11.96 Above high normal 4 .00-10.80 (K/uL) Final RBC 03/04/2023 12:37:12 3.91 3.85-5.15 (M/uL) Final Hemoglobin 03/04/2023 12:37:12 10.6 Below low normal 12 .0-15.3 (g/dL) Final HCT 03/04/2023 12:37:12 33.7 Below low normal 36. 0-45.2 (%) Final MCV 03/04/2023 12:37:12 86.2 81.5-97.5 (fL) Final MCH 03/04/2023 12:37:12 27.1 27.0-34.0 (pg) Final MCHC 03/04/2023 12:37:12 31.5 32.0-36.0 (g/dL) Final RDW 03/04/2023 12:37:12 16.1 11.5-15.5 (%) Final Platelets 03/04/2023 12:37:12 152 140-400 (K /uL) Final MPV 03/04/2023 12:37:12 10.6 6.6-11.1 ( fL) Final Performing Location [facility] [place] [address]
--- OUTSIDE RECORDS SUMMARY | 2023-04-06 06:18 | External Medical Summary ---
Author Name Unknown Address Unknown Organization K01:[facility] [place] - [address] [place], [place] [address] Laboratory Report Ordering Provider Test Date Status SYLWIA QUINTEROS 03/04/2023 12:37:12 Final Observation Date Value Abnormality Reference (Units ) Status Iron 03/04/2023 12:37:12 39 33-151 (ug /dL) Final Iron-binding capacity 03/04/2023 12:37:12 262 250-425 (ug/dL) Final Transferrin Sat % 03/04/2023 12:37:12 15 15 -55 (%) Final Performing Location LABORATORY [facility] - [address] [place], [place] [address]
--- OUTSIDE RECORDS SUMMARY | 2023-04-06 06:18 | External Medical Summary ---
Author Name Unknown Address Unknown Organization K09:[facility] [place] [address] Laboratory Report Ordering Provider Test Date Status SYLWIA QUINTEROS 03/04/2023 12:37:12 Final Observation Date Value Abnormality Reference (Units ) Status BUN 03/04/2023 12:37:12 7 6-20 (mg/d L) Final Creatinine 03/04/2023 12:37:12 0.8 0.5-1.0 ( mg/dL) Final Performing Location [facility] [place] [address]
--- OUTSIDE RECORDS SUMMARY | 2023-04-06 06:18 | External Medical Summary | Summary of Care ---
Author Name Unknown Organization [facility] Address [address] [place] [address] Phone [phone] Care Team Providers Care News Videographer Name Role Phone Vanesa Solorzano Primary Care Provider Reason for Visit * Reason Onset Date Comments Medication Refill 03/03/2023 Encounter Details Date Type Department Care Team Description 03/03/2023 Refill Hematology/Oncology Treatment, [place] 200 [facility] [place] [phone] Crescencio Rosales MD [address] [place] [address] Malignant neoplasm of head of pancreas (HCC)* [...] 3 times. If chest pain continues, call 021. 21 Tab 11 05/31/2020 Active Pantoprazole Sodium 40 [...] mRNA, LNP-s, No Pre serve, 2-Dose Series (PISTIS Consult) 10/16/2020,09/25/2020 Seasonal Influenza, Quadriva lent, No Preserve, [...] Encounter - Ayana Carr RN - 03/03/2023 1:34 PM EDT Pended EMLA and claritin. documented in this encounter Plan of Treatment Upcoming Encounters Date Type Specialty Care Team Description 03/04/2023 Office Visit Palliative Medicine Mercedes Aranda MD [address] [place] [address] [place] [address] 03/20/2023 Office Visit Neurology Greer Davis PA-C [address] [place] [address] 04/29/2023 Office Visit Family Medicine Vanesa [facility]zano, [address] [facility] [address] 04/29/2023 Office Visit Gastroenterology Amberly Turner CRNP [address] [place] [address] 05/26/2023 Office Visit Gynecology Oncology Brayan [facility]guin PA-C [address] [facility] [id number] Health Maintenance Due Date Last Done Comments [...] pancreas documented in this encounter Care Teams News Videographer Relationship Specialty Start Date End Date Vanesa Solorzano, DO [address] [place] [address] PCP - General Family Medicine 09/21/18 documented as of this encounter
--- OUTSIDE RECORDS SUMMARY | 2023-04-06 06:18 | External Medical Summary | Summary of Care ---
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 May repeat 3 times. If chest pain continues, call 911. 59 Tab 11 05/31/2020 Active Pantoprazole Sodium 40 [...] as of this encounter (statuses as of 03/02/2023) Active Problems Problem Noted Date Encounter for [...] as of this encounter (statuses as of 03/02/2023) Resolved Problems Problem Noted Date Resolved Date Obesity, morbid (more than 1 00 lbs over ideal weight or BMI > 40) 01/08/2010 04/08/2019 Overview: Per Obesity Protocol, #19 ICD-10 update of inactive term Dyslipidemia, goal LDL below 100 09/15/2014 Obesity 04/08/2019 Overview: Per Obesity protocol documented as of this encounter (statuses as of 03/02/2023) Immunizations Name Administration Dates Next Due COVID-19 [...] Sign Reading Time Taken Comments Blood Pressure 138/74 03/02/2023 10:58 AM EDT Pulse 57 03/02/2023 10:58 AM EDT Temperature 36.5 C (97.7 F) 03/02/2023 10:58 AM E DT Respiratory Rate 20 03/02/2023 10:58 AM EDT Oxygen Saturation - - Inhaled Oxygen Concentration - - Weight 108.9 kg (240 lb) 03/02/2023 10:58 AM EDT Height - - Body Mass Index 41.2 02/20/2023 1:01 PM EDT documented in this encounter Progress Notes * Crescencio Rosales MD - 03/02/2023 11:13 AM EDT Outpatient Consult Note Data Source: Patient, Epic record. Data Source: Patient, Epic record. 03/02/2023 11:13 AM Jacque Spivey [id number] 62 year old Patient Encounter: HEMATOLOGY/ONCOLOGY [facility] Cancer Diagnosis: Malignant neoplasm of head of pancreas Current Treatment: For discussion Previous Treatment: None Oncologic History : 62-year-old female with complicated past medical history [...] paternal uncle was diagnosed of prostate cancer. Interval History: She was seen by Dr. Steiner on 03/15/2023 and because of the history of CV and other comorbid condition she is not candidate for surgical resection. And he recommended chemotherapy. She was also seen by Dr. Brown and according to his note, her pancreatic cancer treatment shouldtake precedence over her endometrial cancer as it is significantly more morbid. In terms of her endometrial cancer, we have requested that the referring physician place a Mirena IUD which should be adequate treatment for endometrial cancer. REVIEW OF SYSTEMS: General: No Fever, chills, night sweats, or weight loss. HEENT: No change in visual acuity, blurred or double vision. No epistaxis, facial pain, nasal discharge or change in hearing. Denies dysphagia, no muscosal ulceration, or sores noted. Cardiovascular: No chest pain, SWAIN, or palpitations Respiratory: No shortness of breath, cough, hemoptysis, or pleuritic chest pain Gastrointestinal: Episode of abdominal pain, no nausea, vomiting, diarrhea, rectal pain or bleeding Genitourinary: Denies Hematuria or dysuria Musculoskeletal: Generalized weakness Skin: No skin rash or lesions noted Neurologic: No numbness, weakness, neuropathic pain or change in cognitive function Psychiatric: No vegetative signs of depression Endocrine: No symptoms of hypothyroidism or hyperglycemia Hematologic: No bleeding or lymph nodes noted As mentioned above, all of the systems were reviewed in full and are unremarkable. Past Medical History: Diagnosis Date Acute CVA (cerebrovascular accident) (HCC) 01/26/2023 Acute left hemiparesis (HCC) 01/26/2023 Anxiety 01/26/2023 Dyslipidemia, goal LDL below 130 Gestational hypertension Obesity, morbid, BMI 40.0-49.9 (HCC) 04/04/2019 Per Obesity protocol Other screening mammogram 03/10/2005 wnl per [facility] at Paroxysmal atrial flutter (HCC) 01/26/2023 SVT (supraventricular tachycardia) (HCC) 01/26/2023 Current Outpatient Medications Medication Sig Dispense Refill TYLENOL 325 MG PO TABS uses as needed Apixaban 5 MG Oral Tablet (Eliquis) Take [...] the morning and 1 Tablet before bedtime. Nitroglycerin 0.3 MG Sublingual Tablet Sublingual (NITROSTAT) Place 1 Tab under the tongue as needed for Pain, Chest. May repeat 3 times. If chest pain continues, call 911. 25 Tab 11 Pantoprazole Sodium 40 MG Oral Tablet Delayed Release (Protonix) Take 1 Tablet by mouth in the morning. (Patient not taking: Reported on 03/02/2023) No current facility-administered medications for this visit. Social History Tobacco Use Smoking status: Never Smokeless tobacco: Never Substance Use Topics Alcohol use: Yes Comment: Occasionally Drug use: No Review of patient's allergies indicates: No Known Allergies PHYSICAL EXAMINATION: General Appearance: Healthy appearing patient in no acute distress BP 138/74 | Pulse 57 | Temp 36.5 C (97.7 F) (Oral) | Resp 20 | Wt 108.9 kg (240 lb) | LMP (LMP Unknown) | BMI 41.20 kg/m | BSA 2.22 m Vitals reviewed. Physical examination is unchanged since the last visit. ASSESSMENT: 62-year-old female with complicated past medical [...] left side. She will be seen by dust operator oncology tomorrow and appointmentfor the surgical Oncology [...] be malignancy induced and should continue anticoagulation. She was seen by Dr. Steiner and because of locally advanced disease and other comorbid condition, recommended proceed with chemotherapy. He thinks patient is not a surgical candidate. She was alsoseen by Dr. Brown and he also recommended proceed treatment for pancreatic cancer. Clinically patient is feeling better and stronger. Discussed with the patient and in detail about the diagnosis prognosis reviewed all the available blood test and pathology reports with them. She can benefit with FOLFIRINOX chemotherapy. Discussed with them about the benefit, risk, side effects and toxicity of the treatment. After detaileddiscussion she agreed to proceed with treatment and signed the consent form. I will also refer her to the IR for the placement of Port-A-Cath. Because of the risk of infection/abscesses high, I will add Neulasta after the chemotherapy. PLAN: As above. She will return to clinic 2 weeks after receiving 1st cycle of chemotherapy. She will have baseline blood tests including CA 19-9. The patient voiced understanding of all of [...] documented in this encounter Nursing Notes * Aicha Valdez RN - 03/02/2023 10:59 AM EDT Patient was instructed to not get up [...] Team Description 03/03/2023 Nurse Only Hematology Oncology Lisandra, Nurse Hem Onc [facility] [place] [address] [place] [address] 03/20/2023 Office Visit Neurology Greer Davis PA-C [address] [place] [address] 03/25/2023 Office Visit Palliative Medicine Mercedes Aranda MD [address] [facility] [place], [place] [id number] 04/29/2023 Office Visit Family Medicine Vanesa Solorzano DO [address] [place] [address] 04/29/2023 Office Visit Gastroenterology Amberly Turner CRNP [address] [place] [address] 05/26/2023 Office Visit Gynecology Oncology Brayan Olguin PA-C [address] [place] [address] Health Maintenance Due Date Last Done Comments [...] pancreas documented in this encounter Care Teams Coronary Care Unit Nurse Relationship Specialty Start Date End Date Vanesa Solorzano, [address] [place] [address] PCP - General Family Medicine 09/21/18 documented as of this encounter"
--- OUTSIDE RECORDS SUMMARY | 2023-04-06 06:18 | External Medical Summary ---
Author Name Unknown Address Unknown Organization K01:[facility] [place] [address] [place] [address] Laboratory Report Ordering Provider Test Date Status SYLWIA QUINTEROS 03/04/2023 12:37:12 Final Observation Date Value Abnormality Reference (Units ) Status Vitamin B12 03/04/2023 12:37:12 578 [id number] (pg/mL) Final Performing Location [facility] - [address] [place] [address]
--- OUTSIDE RECORDS SUMMARY | 2023-04-06 06:18 | External Medical Summary | Summary of Care ---
Author Name Unknown Organization [facility] Address [address] [place] [address] Phone [phone] Care Team Providers Care Senior Restaurant Manager Name Role Phone Vanesa Solorzano Primary Care Provider Reason for Visit * Reason Onset Date Comments Appointment 03/03/2023 Encounter Details Date Type Department Care Team Description 03/03/2023 Telephone Hematology/Oncology [facility] 200 [facility] [place] [address] Crescencio Rosales MD [address] [place] [address] Appointment Allergies No known active allergiesdocumented as [...] times. If chest pain continues, call 911. 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 Venous Access Insertion Mediport Type: Single Lumen Reason for Procedure: chemo Where Will The Procedure Be Performed? [facility] Thank you documented in this encounter Plan of Treatment Upcoming Encounters Date Type Specialty Care Team Description 03/03/2023 Nurse Only Hematology Oncology Lisandra, Nurse Hem Onc [place] [address] [place] [address] 03/20/2023 Office Visit Neurology Greer Davis PA-C [address] [place] [address] 03/25/2023 Office Visit Palliative Medicine Mercedes Aranda MD [address] [place], [place] [address] [address] 04/29/2023 Office Visit Family Medicine Vanesa Solorzano, [address] [facility] [place] [address] 04/29/2023 Office Visit Gastroenterology Amberly Turner CRNP [address] [place] [address] 05/26/2023 Office Visit Gynecology Oncology [facility]in [facility]C [address] [facility] [id number] Health Maintenance Due Date Last Done Comments [...] filedocumented as of this encounter Care Teams Senior Restaurant Manager Relationship Specialty Start Date End Date Vanesa Solorzano, [address] [place] [address] PCP - General Family Medicine 09/21/18 documented as of this encounter
--- OUTSIDE RECORDS SUMMARY | 2023-04-06 06:18 | External Medical Summary | Summary of Care ---
Author Name Unknown Organization [facility] Address [address] [place] [address] Phone [phone] Care Team Providers Care Jumbo Operator Name Role Phone Vanesa Solorzano Primary Care Provider [phone] Reason for Visit * Reason Onset Date Comments Referral 02/13/2023 Nurse Documentation 02/13/2023 Encounter Details Date Type Department Care Team Description 02/13/2023 Telephone General Surgery, [place] [address] [place], [place] [id number] Александр Steiner MD [address] [place] [address] Referral; Nurse Documentation Allergies No known active allergiesdocumented as of [...] encounter Miscellaneous Notes * Telephone Encounter - Vandana Hall RN - 02/16/2023 4:51 PM EDT Images from the original note were not included. Referral from Dr Ring for [facility] daniela. Requested the following imaging from 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 - There was a suggestion of a stricture in the lower third of the main bile duct. - There was dilation in the gallbladder which measured up to 35 mm. - Multiple stones were visualized endosonographically in the gallbladder. - A mass was identified in the pancreatic head. This was staged T3 N1 Mx by endosonographic criteria. The staging applies if malignancy is confirmed. Fine needle aspiration performed. The mass appeared to be obstructing the distal common bile duct - One enlarged lymph node was visualized in the paradise hepatis region. - A mass measuring 11 mm by 11 mm was identified endosonographically in the left adrenal gland. This was thought to represent an adrenal adenoma on other imaging studies. Cytology 02/06/23 CT Abd Pelvis with IMPRESSION: Pancreatic head mass lesion causing pancreatic ductal dilatation. Peripancreatic stranding could be due to your superimposed pancreatitis. 01/04/23 MRI Abd w/wo IMPRESSION: 1. Pancreatic head mass is known to enhance with some central hypoenhancement compatible with malignancy with central necrosis. No vascular involvement is seen. There is a subcentimeter adjacent lymph node. Additional findings are as above. 2. Hepatic steatosis. 01/02/23 CT Abd Pelvis without IMPRESSION: 1. Confirmation of the 4.3 cm ill-defined pancreatic head mass resulting in upstream pancreatic ductal dilation. Evaluation is limited without the use of IV contrast, however the imaging characteristics are suspicious for adenocarcinoma. GI consultation with endoscopy and tissue sampling recommended. 2. The pancreatic mass abuts and possibly infiltrates the adjacent duodenum . No obstruction. 3. No evidence of metastatic disease. 4. Hepatic steatosis. documented in this encounter Plan of Treatment Upcoming Encounters Date Type Specialty Care Team Description 03/02/2023 Office Visit Hematology Oncology Crescencio Rosales MD [address] [place], [place] [phone] 03/20/2023 Office Visit Neurology Greer Davis PA-C [address] [facility] [address] 03/25/2023 Office Visit Palliative Medicine Mercedes Aranda MD [address] [place] [address] 04/29/2023 Office Visit Family Medicine Vanesa Solorzano, [address] [place] [address] 04/29/2023 Office Visit Gastroenterology Amberly Turner CRNP [address] [place] [address] 05/26/2023 Office Visit Gynecology Oncology Brayan Olguin PA-C [address] [place] [address] Health Maintenance Due Date Last [...] filedocumented as of this encounter Care Teams Jumbo Operator Relationship Specialty Start Date End Date Vanesa Solorzano, [address] [place] [address] PCP - General Family Medicine 09/21/18 documented as of this encounter
--- OUTSIDE RECORDS SUMMARY | 2023-04-06 06:18 | External Medical Summary | Summary of Care ---
Author Name Unknown Organization [facility] Address [address] [place] [address] Phone [phone] Care Team Providers Care Skiff Operator Name Role Phone Vanesa Solorzano Primary Care Provider Reason for Visit * Reason Onset Date Comments Precert Future 02/18/2023 FOLFIRINOX Encounter Details Date Type Department Care Team Description 02/18/2023 Telephone Hematology/Oncology Treatment, [place] [address] [facility] [place] [phone] Crescencio Rosales MD [address] [place] [address] Precert Future (FOLFIRINOX) Allergies No known active [...] times. If chest pain continues, call 911. 82 Tab 11 05/31/2020 Active Pantoprazole Sodium 40 [...] to proceed with chemotherapy. Consent signed 03/02/23. [facility] referral TE sent. Patient still needs mediport- not scheduled. Nurse education 03/03/23. Patient will need hep B labs. * Telephone Encounter - Ayana Carr RN - 02/18/2023 11:36 AM EDT Order received for FOLFIRINOX. [place] plan placed on hold- patient has appt with customer acquisition specialist/onc for endometrial cancer 02/18/23, also scheduled to see gen surg 02/24/23 to discuss surgical options. Patient is returning 03/11/[address] Rosales and decide on proceeding with chemotherapy. documented in this encounter Plan of Treatment Upcoming Encounters Date Type Specialty Care Team Description 03/04/2023 Office Visit Palliative Medicine Mercedes Aranda MD [address] [facility] [place], [place] [phone] 03/20/2023 Office Visit Neurology Greer Davis PA-C [address] [place] [address] 04/29/2023 Office Visit Family Medicine Vanesa Solorzano, [address] [place] [address] 04/29/2023 Office Visit Gastroenterology Amberly Turner CRNP [address] [place] [address] 05/26/2023 Office Visit Gynecology Oncology Brayan Olguin PA-C [address] [place] [address] Scheduled Orders Name Type Priority Associated Diagnoses [...] pancreas documented in this encounter Care Teams Skiff Operator Relationship Specialty Start Date End Date Vanesa Solorzano, DO [address] [place] [address] PCP - General Family Medicine 09/21/18 documented as of this encounter
--- OUTSIDE RECORDS SUMMARY | 2023-04-06 06:18 | External Medical Summary | Summary of Care ---
Author Name Unknown Organization [facility] Address [address] [place] [address] Phone [phone] Care Team Providers Care Buggy Operator Name Role Phone Vanesa Solorzano Primary Care Provider Reason for Visit * Reason Onset Date Comments Referral 03/03/2023 [facility] Encounter Details Date Type Department Care Team Description 03/03/2023 Telephone Hematology/Oncology Treatment, [place] 200 [facility] [place] [phone] Crescencio Rosales MD [address] [place] [address] Referral ([facility] [...] Only Hematology Oncology Lisandra, Nurse Hem Onc [facility] 200 [facility], [place] [address] 03/20/2023 Office Visit Neurology Greer Davis PA-C [address] [place] [address] 03/25/2023 Office Visit Palliative Medicine Mercedes Aranda MD [address] [place] [address] [place] [address] 04/29/2023 Office Visit Family Medicine Vanesa Solorzano, DO [address] [place] [address] 04/29/2023 Office Visit Gastroenterology Amberly Turner CRNP [address] [place] [address] 05/26/2023 Office Visit Gynecology Oncology Brayan Olguin PA-C [address] [place], [place] [phone] Health Maintenance Due Date Last Done Comments [...] filedocumented as of this encounter Care Teams Buggy Operator Relationship Specialty Start Date End Date Vanesa Solorzano DO [address] [place] [address] PCP - General Family Medicine 09/21/18 documented as of this encounter
--- OUTSIDE RECORDS SUMMARY | 2023-04-06 06:18 | External Medical Summary | Summary of Care ---
Author Name Unknown Organization [facility] Address [address] [place] [address] Phone [phone] Care Team Providers Care Eyewear Manufacturing Supervisor Name Role Phone Vanesa Solorzano Primary Care Provider [phone] Reason for Visit * Reason Comments NEW PATIENT * Evaluate & Treat - Unlimited Visits (Within 30 days (routine)) - Pending Review Specialty Diagnoses / Procedures Referred By Contact Referred To Contact Cardiovascular Medicine / Cardiology Diagnoses Paroxysmal atrial flutter (HCC) Anna Jamil MD [address] [place] [address] Referral ID Status Reason Start Date Expiration Date Visits Requested Visits Authorized [id number] Pending Review Specialty Services Required 01/26/[phone] Encounter Details Date Type Department Care Team Description 02/19/2023 Office Visit Cardiology [facility] [address] [place] [address] Salbador Galvin CRNP [address] [place] [address] Paroxysmal atrial flutter (HCC)* Allergies No known active allergiesdocumented as [...] Sign Reading Time Taken Comments Blood Pressure 118/64 02/19/2023 8:24 AM EDT Pulse 66 02/19/2023 8:24 AM EDT Temperature - - Respiratory Rate - - Oxygen Saturation 99% 02/19/2023 8:24 AM EDT Inhaled Oxygen Concentration - - Weight 111.9 kg (246 lb 9.6 oz) 02/19/2023 8:24 AM EDT Height 162.6 cm (5' 4") 02/19/2023 8:24 AM EDT Body Mass Index 42.33 02/19/2023 8:24 AM EDT documented in this encounter Progress Notes * YannickTYLER Renteria - 02/19/2023 9:08 AM EDT Cardiology Outpatient Clinic Note 02/19/2023 Jacque Spivey is a 62 year old adult in clinic today for follow-up of recent hospital admission [facility]. Coleman Spivey is accompanied by her or today's visit. Patient is referred by Anna Jamil MD for parosysmal atrial flutter. Patient was recently admitted from 01/02-01/08 at [facility] for acute onset left sided weakness and left sided hand paresthesias / CVA. CT of head and neck was negative. CT angio head and neck was unremarkable. MRI brain right parietotemporal stroke - showed no hemorrhage. GILBERTO was conducted and showed: EF 60-65% Inpatient Telemetry showed atrial flutter - which may have caused cardioembolic stroke. Today patient presents with her . States that she has generalize weakness and has been goingto physical therapy. She was started back on her Eliquis. She is complaining of some abdominal painand bloating. Denies any issues with bleeding. Today patient states that since her discharge, she has not had any cardiac symptoms. Denies chest pain/ chest pressure. Denies dizziness, lightheadedness, palpitations, or syncope. Cardiac history is significant for: (-) Diabetes Mellitus (+) Hypertension (+) Dyslipidemia (-) Smoking (-) Carotid disease (-) Peripheral vascular disease (-) Renal disease (+) Family history of premature CAD- eldest brother at age 63 had open heart surgery Denies drug or alcohol use (+) Stroke Endometrial cancer- follows Gynecology/ Oncology Pancreatic ductal adenocarcinoma - follows with medical and surgical oncology Cardiac Symptoms Chest discomfort: denies Dyspnea of exertion: denies Dyspnea at rest: denies Orthopnea: denies Edema: ankles (once in a while) Palpitations: denies Syncope/ Near Syncope: denies Interim History: BP Readings from Last 4 Encounters: 02/19/23 118/64 02/18/23 119/80 02/17/23 118/72 02/13/23 106/60 Wt Readings from Last 4 Encounters: 02/19/23 111.9 kg (246 lb 9.6 oz) 02/18/23 112 kg (247 lb) 02/17/23 112.9 kg (249 lb) 02/13/23 113.7 kg (250 lb 11.2 oz) Current Outpatient Medications Megestrol Acetate 20 MG Oral Tablet (Megace) Metoprolol Succinate ER 25 MG Oral Tablet Extended Release 24 Hour (toPROL XL) Apixaban 5 MG Oral Tablet (Eliquis) Pantoprazole Sodium 40 MG Oral Tablet Delayed Release (Protonix) Simethicone 125 MG Oral Capsule Nitroglycerin 0.3 MG Sublingual Tablet Sublingual (NITROSTAT) TYLENOL 325 MG PO TABS Review of patient's allergies indicates: No Known Allergies Past Medical History: Diagnosis Date Acute CVA (cerebrovascular accident) ([facility]) 01/26/2023 Acute left hemiparesis ([facility]) 01/26/2023 Anxiety 01/26/2023 Dyslipidemia, goal LDL below 130 Gestational hypertension Obesity, morbid, BMI 40.0-49.9 ([facility]) 04/04/2019 Per Obesity protocol Other screening mammogram 03/10/2005 wnl per [facility] at Paroxysmal atrial flutter ([facility]) 01/26/2023 SVT (supraventricular tachycardia) ([facility]) 01/26/2023 Past Surgical History: Procedure Laterality Date COLONOSCOPY, DIAGNOSTIC (RECTUM) 11/15/2013 perianal and digital rectal exam normal, severe stenosis found at 35 cm proximal to the anus and was non-transversed, stricture at 35 cm in colon, CT scan abd/pelvis/COLONOSCOPY FLEXIBLE PROXIMAL DIAGNOSTIC performed by You Gregory MD at ENDOSCOPY [facility] COLONOSCOPY, DIAGNOSTIC (RECTUM) 03/09/2014 COLONOSCOPY FLEXIBLE PROXIMAL DIAGNOSTIC performed by Susu Whittington MD at [place] [facility] LIGATE/CUT OVIDUCT(S) MAMMOGRAM - 1 BREAST 02/13/04 wnl per [facility]-see scan MAMMOGRAM - 1 BREAST 08/26/04 [facility] per /[facility] MAMMOGRAM - BILATERAL 03/14/08 wnl MAMMOGRAM SCREENING BILATERAL 05/07/09 wnl- REMOVAL OF APPENDIX 1976 Family History Problem Relation Age of Onset Hyperlipidemia Mother Osteoporosis Mother Prostate cancer Father Stroke Brother Heart attack Brother Diabetes Brother Hypertension Brother Breast Cancer Grandmother (Paternal) Social History Tobacco Use Smoking status: Never Smokeless tobacco: Never Substance Use Topics Alcohol use: Yes Comment: Occasionally Drug use: No Review of Systems Review of Systems Constitutional: Negative. HENT: Negative. Eyes: Negative. Cardiovascular: Negative. Respiratory: Negative. Endocrine: Negative. Hematologic/Lymphatic: Negative. Skin: Negative. Musculoskeletal: Negative. Gastrointestinal: Negative. Genitourinary: Negative. Neurological: Negative. Psychiatric/Behavioral: Negative. Labwork EK02/19/2023 Normal sinus rhythm T wave abnormality, consider inferior ischemia When compared with ECG of 31-MAY-2020 10:59, T wave inversion now evident in Inferior leads Nonspecific T wave abnormality, worse in Anterior-lateral leads Ventricular Rate: 74 Atrial Rate: 74 MO Interval: 130 QRS Duration: 80 QT/QTc: 382/424 ms P-R-T [place]: 27 : 16 : -26 degrees ECHO: 02/05/2023 (Results scanned in from [facility]) The left ventricle is hyperdynamic EF: >70% The left ventricular wall motion is normal. Dobutamine Stress ECHO: 06/25/2020 The stress echo is negative for inducible ischemia. The left ventricular wall motion was normal rest, with appropriate increase in systolic function during pharmacologic stress and no stress-induced wall motion abnormalities were observed. The stress EKG response is negative for ischemia. The heart rate response to pharmacologic stress was normal. An equivocal hypotensive blood pressure response to pharmacologic stress was observed. Resting Study: The LV wall thickness is mildly increased (concentric). The qualitative LV ejection fraction is 55-59% (normal). There is mild mitral annular calcification. Mitral stenosis is absent. Significant mitral regurgitation is absent. Mild aortic valve sclerosis is present. Aortic stenosis is absent. Physical Exam: Today's vital signs: BP 118/64 | Pulse 66 | Ht 1.626 m (5' 4") | Wt 111.9 kg (246 lb 9.6 oz) | LMP (LMP Unknown) | SpO2 99% | BMI 42.33 kg/m | BSA 2.25 m Physical Exam GENERAL: alert, oriented, and with no acute stress CARDIO: regular pulse, and normal heart sounds PULM: normal breath sounds bilaterally, no wheezing, no crackles ABDOMEN: soft, non-tender, non-distended, no peritoneal signs, normoactive bowel sounds EXTREMITIES: no edema, no swelling, no erythema VASCULAR: equal pulses in all extremities SKIN: warm, dry, intact Impression and Plan: (Discussed with Dr. Salas) [(I48.92) Paroxysmal atrial flutter (HCC) Note: Patient was referred after recent hospital discharge for further evaluation of paroxysmal atrial flutter. Patient reported she has been doing well since discharge. No complaint of cardiac symptoms. Plan: EKG obtained today. Patient in Normal Sinus. Will order Zio for 2 weeks to assess for any arrhythmias. Will follow-up based on results. I spent a total of 40-54 minutes (exact time 45 mins) on the date of service in preparation, delivery, and documentation of the care provided to Jacque Spivey excluding any time spent in the performance of separately billed services. TYLER Huitron Department of Cardiology [place], [place] documented in this encounter Nursing Notes * YURI Kamara - 02/19/2023 8:25 AM EDT Patient was instructed to not get up on the exam table/exam chair until directed and assisted by their provider; patient is to remain seated in the chair/ wheelchair/ exam table/ exam chair for fall prevention and safety reasons. Patient is aware to have assistance to step down off exam table/exam chair with personnel. Patient voiced full comprehension of instructions. YURI Kamara 02/19/2023 8:25 AM documented in this encounter Plan of Treatment Upcoming Encounters Date Type Specialty Care Team Description 03/03/2023 Nurse Only Hematology Oncology [place], Nurse Hem Onc Scenery [address] [place] [address] Arrived 03/04/2023 Office Visit Palliative Medicine Mercedes Aranda MD [address] [place] [address] [place] [address] 03/20/2023 Office Visit Neurology Greer Davis PA-C [address] [facility] [place] [id number] 04/29/2023 Office Visit Family Medicine Vanesa Solorzano DO [address] [place] [address] 04/29/2023 Office Visit Gastroenterology Amberly Turner CRNP [address] [place] [address] 05/26/2023 Office Visit Gynecology Oncology Brayan Olguin PA-C [address] [place] [address] Scheduled Orders Name Type Priority Associated Diagnoses Orde r Schedule EXTERNAL EKG 8 TO 15 DAYS Holter Routine Paroxysmal atrial flutter (HCC) Expected: 02/19/2023 (Approximate), Expires: 02/20/2024 Health Maintenance Due Date Last Done Comments [...] as of this encounter Visit Diagnoses Diagnosis Paroxysmal atrial flutter (HCC)- Primary Atrial flutter documented in this encounter Care Teams Eyewear Manufacturing Supervisor Relationship Specialty Start Date End Date Vanesa Solorzano, [address] [place] [address] PCP - General Family Medicine 09/21/18 documented as of this encounter
--- OUTSIDE RECORDS SUMMARY | 2023-04-06 06:18 | External Medical Summary ---
Author Name Unknown Address Unknown Organization K01:[facility] [address] [place] [address] Laboratory Report Ordering Provider Test Date Status SYLWIA QUINTEROS 03/04/2023 12:37:12 Final Observation Date Value Abnormality Reference (Units ) Status Ferritin 03/04/2023 12:37:12 542 Above high normal 13 -150 (ng/mL) Final Performing Location [facility] - [address] [place] [address]
--- OUTSIDE RECORDS SUMMARY | 2023-04-06 06:18 | External Medical Summary ---
Author Name Unknown Address Unknown Organization K09:[facility] [place] [address] Laboratory Report Ordering Provider Test Date Status SYLWIA QUINTEROS 03/04/2023 12:37:12 Final Observation Date Value Abnormality Reference (Units ) Status SYNC LEUKOCYTES IN BLOOD BY AUTOMATED COUNT 03/04/2023 12:37:12 11.96 Above high normal 4.00-10.80 (K/uL) Final Segs 03/04/2023 12:37:12 80.8 Above high normal 40.0-75.0 (%) Final Lymphs % 03/04/2023 12:37:12 9.5 Below low normal 18.0-42.0 (%) Final Monos 03/04/2023 12:37:12 7.1 1.0-11.0 (%) Final Eosinophils 03/04/2023 12:37:12 2.3 0.0-6.0 (%) Final Basos 03/04/2023 12:37:12 0.3 0.0-2.0 (%) Final Absolute Segs 03/04/2023 12:37:12 9.66 Above high normal 1.80-7.70 (K/uL) Final Lymphs, absolute 03/04/2023 12:37:12 1.14 1.00-4.80 (K/ul) Final Monos, Abs 03/04/2023 12:37:12 0.85 0.00-1.10 (K/uL) Final Eos, Abs 03/04/2023 12:37:12 0.28 0.00-0.70 (K/uL) Final Basos, Abs 03/04/2023 12:37:12 0.03 0.00-0.20 (K/uL) Final Performing Location [facility] [place] [address]
--- OUTSIDE RECORDS SUMMARY | 2023-04-06 06:18 | External Medical Summary | Summary of Care ---
Author Name Unknown Organization [facility] Address [address] [place] [address] Phone [phone] Care Team Providers Care Regrinder Operator Name Role Phone Vanesa Solorzano Primary Care Provider [phone] Reason for Visit * Reason Onset Date Comments Appointment 02/24/2023 Encounter Details Date Type Department Care Team Description 02/24/2023 Telephone Hematology/Oncology Treatment, [place] [address] [place] [id number] Crescencio Rosales MD [address] [place] [address] Appointment Allergies No known active allergiesdocumented as [...] times. If chest pain continues, call 911. 47 Tab 11 05/31/2020 Active Pantoprazole Sodium 40 [...] mRNA, LNP-s, No Pre serve, 2-Dose Series (Cornice) 10/16/2020,09/25/2020 Seasonal Influenza, Quadriva lent, No Preserve, [...] * Telephone Encounter - ROMANA Oliver - 02/24/2023 3:07 PM EDT Spoke to patient, moved appointment sooner to 03/02/23 * Telephone Encounter - Ayana Carr RN [...] Visit Hematology Oncology [facility] [address] 03/20/2023 Office Visit Neurology Greer Davis PA-C [facility] [place] [address] 03/25/2023 Office Visit Palliative Medicine Mercedes Aranda MD [address] [place] [address] [place] [address] 04/29/2023 Office Visit Family Medicine Vanesa Solrozano DO [address] [place] [address] 04/29/2023 Office Visit Gastroenterology Amberly Turner, TYLER [address] [place] [address] 05/26/2023 Office Visit Gynecology Oncology Brayan Olguin PA-C [address] [facility] [place] [address] Health Maintenance Due Date Last Done Comments [...] filedocumented as of this encounter Care Teams Regrinder Operator Relationship Specialty Start Date End Date Vanesa Solorzano, DO [address] [place] [address] PCP - General Family Medicine 09/21/18 documented as of this encounter
--- OUTSIDE RECORDS SUMMARY | 2023-04-06 06:18 | External Medical Summary | Summary of Care ---
Author Name Unknown Organization [facility] Address [address] [place] [address] Phone [phone] Care Team Providers Care Product Manager Name Role Phone Michaelmcihi Vanesa Tracee HARRIS Primary Care Provider Reason for Visit * Reason Comments IUD Mirena IUD insertion Encounter Details Date Type Department Care Team Description 02/20/2023 Office Visit Gynecology/Obstetrics [facility] [address] [facility] [place] [address] Nida Borden CRNP [address] [facility] [address] Encounter for IUD insertion*; Endometrial cancer (HCC) Allergies No known active allergiesdocumented as of this encounter (statuses as of 02/20/2023) Medications Medication Sig Dispensed Refills Start Date [...] and 1 Tablet before bedtime. 0 Active Hospital, Clinic, or Other Facility Administered Medication Ordered Dose Route Frequency Start Date End Date Status levoNORGESTREL(Mirena) 20 mcg/24 hr IUDIndications:Encounter for IUD insertion,Endometrial cancer (HCC) 1 Each IU ONCE 02/20/2023 02/20/2023 Ended documented as of this encounter (statuses as of 02/20/2023) Active Problems Problem Noted Date Encounter for [...] as of this encounter (statuses as of 02/20/2023) Resolved Problems Problem Noted Date Resolved Date Obesity, morbid (more than 1 00 lbs over ideal weight or BMI > 40) 01/08/2010 04/08/2019 Overview: Per Obesity Protocol, #19 ICD-10 update of inactive term Dyslipidemia, goal LDL below 100 09/15/2014 Obesity 04/08/2019 Overview: Per Obesity protocol documented as of this encounter (statuses as of 02/20/2023) Immunizations Name Administration Dates Next Due COVID-19 mRNA, LNP-s, No Pre serve, 2-Dose Series (DoubleDutch) 10/16/2020,09/25/2020 Seasonal Influenza, Quadriva lent, No Preserve, [...] Sign Reading Time Taken Comments Blood Pressure 122/78 02/20/2023 1:01 PM EDT Pulse - - Temperature - - Respiratory Rate - - Oxygen Saturation - - Inhaled Oxygen Concentration - - Weight 111.6 kg (246 lb) 02/20/2023 1:01 PM EDT Height 162.6 cm (5' 4") 02/20/2023 1:01 PM EDT Body Mass Index 42.23 02/20/2023 1:01 PM EDT documented in this encounter Progress Notes * TYLER Ag - 02/20/2023 1:15 PM EDT Jacque Spivey 62 year old is here for Mirena IUD insertion. She is post-menopausal. Filed Vitals: 02/20/23 1301 BP: 122/78 Weight: 111.6 kg (246 lb) Height: 1.626 m (5' 4") Diagnosed with endometrial cancer within the last few weeks; also found to have pancreatic cancer. Met with oncology and business support/oncology. Advised by business support/onc to have a Mirena inserted, as she is not a surgical candidate. They plan to see her and repeat an EMB in 3 months (already scheduled 05/26/23). Again, discussed risks and benefits of IUD insertion. Patient is aware risks of insertion include perforation of uterus with insertion which would require surgical removal, embedment of IUD into uterus, increased risk of PID with more than one partner, possibility of sepsis which would require removal. A "time out" was initiated by TYLER Kaminski prior to procedure. The patient was identified by name and date of . The correct procedure, and correct site identified. Correct positioning(as applicable). There is availability of necessary equipment. Patient states she is not allergic to latex. After informed consent was obtained and it was confirmed the patient was not , a speculum was placed in the vagina. The cervix was prepped using Betadine. The anterior lip of the cervix was grasped using a single tooth tenaculum. A uterine sound was then introduced easily and the uterus sounded to 9cm. Mirena arms loaded under sterile technique and IUD advanced to 9cm, arms released and IUD placed touterine fundus, no resistance met with insertion of IUD. IUD strings shortened to approximately 1.5inches. Small amount of bleeding noted. The speculum was then removed. The patient tolerated the procedure well. IMP: Insertion of Mirena IUD Plan: follow up with business support/onc as scheduled. Call with bleeding that saturates a pad in <1 hr, severe pain, or other concerns. TYLER Kaminski 02/20/2023 CC: Brayan Olguin PA-C documented in this encounter Nursing Notes * Jocelynn Irene LPN - 02/20/2023 1:07 PM EDT Chief Complaint Patient presents with IUD Mirena IUD insertion documented in this encounter Plan of Treatment Upcoming Encounters Date Type Specialty Care Team Description 02/24/2023 Telemedicine General Surgery Александр Steiner MD [address] [place] [address] 03/11/2023 Office Visit Hematology Oncology Crescencio Rosales MD [address] [place] [address] 03/20/2023 Office Visit Neurology Greer Davis PA-C [address] [place] [address] 03/25/2023 Office Visit Palliative Medicine Mercedes Aranda MD [address] [facility] [place] [phone] 04/29/2023 Office Visit Family Medicine Vanesa Solorzano DO [address] [place] [address] 04/29/2023 Office Visit Gastroenterology Amberly Turner CRNP [address] [facility] [address] 05/26/2023 Office Visit Gynecology Oncology Brayan Olguin PA-C [address] [place] [address] Health Maintenance Due Date Last Done Comments [...] as of this encounter Visit Diagnoses Diagnosis Encounter for IUD insertion- Primary Encounter for insertion of intrauterine contraceptive device Endometrial cancer (HCC) Malignant neoplasm of corpus uteri, except isthmus documented in this encounter Administered Medications Inactive Administered Medications - up to 3 most recent administrations Medication Order MAR Action Action Date Dose Rate Site levoNORGESTREL(Mirena) 20 mcg/24 hr IUD 1 Each, Intrauterine, ONCE, On Thu02/20/23 at 1430, For 1 dose, Given 02/20/2023 2:38 PM EDT 1 Each documented in this encounter Care Teams Product Manager Relationship Specialty Start Date End Date Vanesa Solorzano, [address] [place] [address] PCP - General Family Medicine 09/21/18 documented as of this encounter
--- OUTSIDE RECORDS SUMMARY | 2023-04-06 06:18 | External Medical Summary ---
Author Name Unknown Address Unknown Organization K01:[facility] [place] [facility] [address] [facility] [place] [address] Laboratory Report Ordering Provider Test Date Status SYLWIA QUINTEROS 03/04/2023 12:37:12 Final Observation Date Value Abnormality Reference (Units ) Status Hepatitis B virus core Ab [Presence] in Serum 03/04/2023 12:37:12 Negative Negative Final Performing Location LAB[facility] - [address] [place] [address]
--- OUTSIDE RECORDS SUMMARY | 2023-04-06 06:18 | External Medical Summary | Summary of Care ---
Author Name Unknown Organization [facility] Address [address] [place] [address] Phone [phone] Care Team Providers Care Director Of Occupational Health Name Role Phone Vanesa Solorzano Primary Care Provider [phone] Reason for Visit * Reason Comments NEW PATIENT * Evaluate & Treat - Unlimited Visits (Within 10 days (routine)) - Authorized Specialty Diagnoses / Procedures Referred By Todd t Referred To Contact SURGICAL ONCOLOGY / Surgical Oncology Diagnoses Malignant neoplasm of head of pancreas (HCC) Odilia Ring DO [address] [place] [address] Referral ID Status Reason Start Date Expiration Date Visits Requested Visits Authorized [id number] Authorized Specialty Services Required 02/13/2023 999 999 Encounter Details Date Type Department Care Team Description 02/24/2023 [facility] [address] [place] [address] Александр Steiner MD [address], [place] [phone] Pre-operative examination* Allergies No known active allergiesdocumented as of [...] on file documented as of this encounter Progress Notes * Александр Steiner MD - 02/24/2023 8:57 AM EDT Patient location: HOME. I was in a hospital or clinic location. After connecting through televideo,patient was verified with two unique identifiers. Patient (or authorized legal phone representative) was then informed that this was a Telemedicine visit and being conducted confidentially over secure lines. Methods to assure confidentiality were taken. Patient acknowledged consent and understanding of pr ivacy and security of the Telemedicine visit. The patient agreed to participate. SURGICAL ONCOLOGY CONSULTATION [facility], [place], [place] DATE: 02/24/2023 Referring Physician: 1. Odilia Ring DO Primary Care Physician: Vanesa Solorzano DO CHIEF COMPLAINT: Chief Complaint Patient presents with NEW PATIENT HISTORY OF PRESENT ILLNESS: I was asked to see Jacque Spivey by Dr. Odilia Ring DO and Vanesa Solorzano DO for pancreatic cancer She had a recent stroke and is still recovering slowly Home bound at this point due to getting weak after walking about 50 yards. IMAGING: - An oval mass was identified in the pancreatic head. The mass was hypoechoic. The mass measured 45mm by 35 mm in maximal cross-sectional diameter. The outer margins were irregular. There was sonographic evidence suggesting invasion into the portal vein (manifested by abutment). An intact interface was seen between the mass and the superior mesenteric artery suggesting a lack of invasion. The remainder of the pancreas was examined. The endosonographic appearance of parenchyma and the upstream pancreatic duct indicated duct dilation, a maximum duct diameter of 4 mm and parenchymal atrophy. Fine needle aspiration for cytology was performed. Color Doppler imaging was utilized prior to needle puncture to confirm a lack of significant vascular structures within the needle path. Four passes were made with the 25 gauge needle using a transduodenal approach Images reviewed by myself with the patient today PATHOLOGY / LABS: Adenocarcinoma Ca19-9- 2311 Ca125 - 260 REVIEW OF SYSTEMS: All systems negative other than noted in HPI PAST MEDICAL HISTORY: Patient Active Problem List Diagnosis Code Obesity, [...] for antineoplastic chemotherapy Z51.11 Past Medical History: Diagnosis Date Acute CVA (cerebrovascular accident) (HCC) 01/26/2023 Acute left hemiparesis (HCC) 01/26/2023 Anxiety 01/26/2023 Dyslipidemia, goal LDL below 130 Gestational hypertension Obesity, morbid, BMI 40.0-49.9 (HCC) 04/04/2019 Per Obesity protocol Other screening mammogram 03/10/2005 wnl per [facility] at Paroxysmal atrial flutter (HCC) 01/26/2023 SVT (supraventricular tachycardia) (HCC) 01/26/2023 MEDICATIONS: Current Outpatient Medications Medication Sig Dispense Refill [...] No current facility-administered medications for this visit. ALLERGIES TO MEDICATIONS: Review of patient's allergies indicates: No Known Allergies PAST SURGICAL HISTORY: Past Surgical History: Procedure Laterality Date COLONOSCOPY, DIAGNOSTIC (RECTUM) 11/15/2013 perianal and digital rectal exam normal, severe stenosis found at 35 cm proximal to the anus and was non-transversed, stricture at 35 cm in colon, CT scan abd/pelvis/COLONOSCOPY FLEXIBLE PROXIMAL DIAGNOSTIC performed by You Gregory MD at ENDOSCOPY [facility] COLONOSCOPY, DIAGNOSTIC (RECTUM) 03/09/2014 COLONOSCOPY FLEXIBLE PROXIMAL DIAGNOSTIC performed by Susu Whittington MD at ENDOSCOPY [facility] LIGATE/CUT OVIDUCT(S) MAMMOGRAM - 1 BREAST 02/13/04 wnl per [facility]-see scan MAMMOGRAM - 1 BREAST 08/26/04 [facility] per [facility] MAMMOGRAM - BILATERAL 03/14/08 wnl MAMMOGRAM SCREENING BILATERAL 05/07/09 wnl- REMOVAL OF APPENDIX 1975 FAMILY HISTORY: Family History Problem Relation Age of Onset Hyperlipidemia Mother Osteoporosis Mother Prostate cancer Father Stroke Brother Heart attack Brother Diabetes Brother Hypertension Brother Breast Cancer Grandmother (Paternal) SOCIAL HISTORY: Social History Socioeconomic History Marital status: Spouse name: You Number of children: 2 Years of education: Not on file Highest education level: Not on file Occupational History Occupation: [employer] Employer: [employer] Comment: [employer] Occupation: [employer] Comment: 2009 Tobacco Use Smoking status: Never Smokeless tobacco: Never Substance and Sexual Activity Alcohol use: Yes Comment: Occasionally Drug use: No Sexual activity: Yes Partners: Male control/protection: Surgical Comment: BTL Other Topics Concern Not on file Social History Narrative Working at [employer]. Son George, and living with her. And [...] on file Housing Stability: Not on file PHYSICAL EXAMINATION: Telemed IMPRESSION and PLAN: Pancreatic cancer- locally advanced - not resectable - also with competing medical issues including CVA which might make her a non- operative candidate - also with endometrial cancer - upfront chemotherapy and then re-eval Александр Steiner MD rap artist Section Head, Surgical Oncology and Endocrine Surgery [facility] [address] [place] [address] Office: [phone] [email or web address] documented in this encounter Plan of Treatment Upcoming Encounters Date Type Specialty Care Team Description 03/11/2023 Office Visit Hematology Oncology Connie, Crescencio Ponce MD [address] [place] [address] 03/20/2023 Office Visit Neurology Greer Davis PA-C [address] [facility] [place] [address] 03/25/2023 Office Visit Palliative Medicine Mercedes Aranda MD [address] [facility] [place] [id number] 04/29/2023 Office Visit Family Medicine Vanesa Solorzano DO [address] [place] [address] 04/29/2023 Office Visit Gastroenterology Amberly Turner CRNP [address] [facility] [place] [address] 05/26/2023 Office Visit Gynecology Oncology Brayan Olguin PA-C [address] [place] [address] Scheduled Referrals Name Type Priority Associated Diagnoses Orde r Schedule SURGICAL ONCOLOGY REFERRAL OP Referral Within 10 days (routine) Malignant neoplasm of head of pancreas (HCC) Ordered: 02/13/2023 Health Maintenance Due Date Last Done Comments [...] as of this encounter Visit Diagnoses Diagnosis Pre-operative examination- Primary Preoperative examination, unspecified documented in this encounter Care Teams Director Of Occupational Health Relationship Specialty Start Date End Date Vanesa Solorzano, [address] [place] [address] PCP - General Family Medicine 09/21/18 documented as of this encounter
--- OUTSIDE RECORDS SUMMARY | 2023-04-06 06:18 | External Medical Summary ---
Author Name Unknown Address Unknown Organization K09:[facility] [place] [address] Laboratory Report Ordering Provider Test Date Status SYLWIA QUINTEROS 03/04/2023 12:37:12 Final Observation Date Value Abnormality Reference (Units ) Status Nucleated erythrocytes/100 leukocytes [Ratio] in Blood by Automated count 03/04/2023 12:37:12 Final Performing Location [facility] [place] [place] [address]
--- OUTSIDE RECORDS SUMMARY | 2023-04-06 06:18 | External Medical Summary | Summary of Care ---
Author Name Unknown Organization [facility] Address [address] [place] [address] Phone [phone] Care Team Providers Care Sweet Dough Mixer Name Role Phone Vanesa Solorzano Primary Care Provider [phone] Reason for Referral * Precert (Within 10 days (routine)) - Pending Review Specialty Diagnoses / Procedures Referred By Todd young Referred To Contact Radiology Diagnoses Malignant neoplasm of head of pancreas (HCC) [facility] Crescencio Rosales MD [address] [place] [place] [address] Referral ID Status Reason Start Date Expiration Date V isits Requested Visits Authorized [id number] Pending Review 03/09/2023 999 999 Encounter Details Date Type Department Care Team Description 03/02/2023 Orders Only Hematology/Oncology, [address] [address] Crescencio Rosales MD [address] [place] [address] Malignant neoplasm of head of pancreas (HCC)* [...] mRNA, LNP-s, No Pre serve, 2-Dose Series ([employer]) 10/16/2020,09/25/2020 Seasonal Influenza, Quadriva lent, No Preserve, [...] Oncology Lisandra, Nurse Hem Onc Scene [address] [facility], [place] [address] 03/20/2023 Office Visit Neurology Greer Davis PA-C [address] [place] [address] 03/25/2023 Office Visit Palliative Medicine Mercedes Aranda MD [address] [place] [address] [place] [address] 04/29/2023 Office Visit Family Medicine Vanesa Solorzano DO [address] [facility] [place] [address] 04/29/2023 Office Visit Gastroenterology Amberly Turner CRNP [address] [place] [address] 05/26/2023 Office Visit Gynecology Oncology Brayan Olguin PA-C [address] [facility] [place] [address] Scheduled Orders Name Type Priority Associated Diagnoses Orde r Schedule IR VENOUS ACCESS [facility] Medical Imaging Routine Malignant neoplasm of head of pancreas (HCC) Expected: 03/09/2023, Expires: 04/02/2024 Health Maintenance Due Date Last Done Comments [...] pancreas documented in this encounter Care Teams Sweet Dough Mixer Relationship Specialty Start Date End Date Vanesa Solorzano DO [address] [place] [address] PCP - General Family Medicine 09/21/18 documented as of this encounter
--- OUTSIDE RECORDS SUMMARY | 2023-04-06 06:19 | External Medical Summary | Summary of Care ---
Author Name Unknown Organization [facility] Address [address] [place] [address] Phone [phone] Care Team Providers Care Advertising Sales Associate Name Role Phone Vanesa Solorzano Primary Care Provider Encounter Details Date Type Department Care Team Description 02/06/2023 Hospital Encounter Radiology Film File [address] [place] [address] Allergies No known active allergiesdocumented as of this encounter (statuses as of 02/18/2023) Medications Medication Sig Dispensed Refills Start Date [...] by mouth in the morning. 0 Active Losartan Potassium 50 MG Oral Tablet (Cozaar) Take 1 Tablet by mouth in the morning and 1 Tablet before bedtime. 0 01/20/2023 Active Apixaban 5 MG Oral Tablet (Eliquis)Indications: Acute CVA (cerebrovascular accident) (HCC),Paroxysmal atrial flutter (HCC) Take 1 Tablet by mouth in the morning and 1 Tablet before bedtime. 60 Tablet 11 01/26/2023 Active Simethicone 125 MG Oral Capsule Take 1 Capsule by mouth. 0 Active documented as of this encounter (statuses as of 02/18/2023) Active Problems Problem Noted Date Encounter for [...] as of this encounter (statuses as of 02/18/2023) Resolved Problems Problem Noted Date Resolved Date Obesity, morbid (more than 1 00 lbs over ideal weight or BMI > 40) 01/08/2010 04/08/2019 Overview: Per Obesity Protocol, #19 ICD-10 update of inactive term Dyslipidemia, goal LDL below 100 09/15/2014 Obesity 04/08/2019 Overview: Per Obesity protocol documented as of this encounter (statuses as of 02/18/2023) Immunizations Name Administration Dates Next Due COVID-19 mRNA, LNP-s, No Pre serve, 2-Dose Series ([employer]) 10/16/2020,09/25/2020 Seasonal Influenza, Quadriva lent, No Preserve, [...] Encounters Date Type Specialty Care Team Description 02/18/2023 Office Visit Gynecology Oncology Filemon Brown MD [address] [place] [address] CC: 62 year old female who presents today to discuss treatment options 02/19/2023 Cardiac Studies Cardiac Studies Nikki Ekg [address] [place] [address] 02/19/2023 Office Visit Cardiology aSlbador Galvin CRNP [address] [place], [place] [phone] 02/20/2023 Office Visit Gynecology Obstetrics Nida Borden CRNP [address] [place] [address] 02/24/2023 Telemedicine General Surgery Александр Steiner MD [address] [place] [address] 03/11/2023 Office Visit Hematology Oncology Crescencio Rosales MD [address] [place] [address] 03/20/2023 Office Visit Neurology Greer Davis PA-C [address] [place] [address] 04/29/2023 Office Visit Family Medicine Vanesa Solorzano, [address] [place], [place] [phone] 04/29/2023 Office Visit Gastroenterology Amberly Turner CRNP [address] [place] [address] Health Maintenance Due Date Last Done Comments [...] 09/2016, 09/09/2013, Additional history exists Diabetes Screening 02/12/2026 02/12/2023, 0 01/16/2023, 01/09/2023, Additional history exists Cervical Cancer Screening 01/31/2028 [...] Procedure Name Priority Date/Time Associated Diagnosis Comments RADIOLOGY EXAM - CT (IMAGES ONLY, NO REPORT) Routine 02/06/2023 8:40 PM EDT documented in this encounter Results * RADIOLOGY EXAM - CT (IMAGES ONLY, NO REPORT) (02/06/2023 8:40 PM EDT) 02/06/2023 8:40 PM EDT Narrative Scheduling, Silent - 02/17/2023 8:22 PM EDT This is an imaging study not interpreted or resulted by a [facility] or [facility] contracted radiologist. Crescencio Rosales MD RAD CT documented in this encounter Care Teams Advertising Sales Associate Relationship Specialty Start Date End Date Vanesa Solorzano, DO [address] [place], [place] [phone] PCP - General Family Medicine 09/21/18 documented as of this encounter
--- OUTSIDE RECORDS SUMMARY | 2023-04-06 06:19 | External Medical Summary | Summary of Care ---
Author Name Unknown Organization [facility] Address [address] [place] [address] Phone [phone] Care Team Providers Care Community Marketing Coordinator Name Role Phone Vanesa Solorzano Primary Care Provider Reason for Visit * Reason Onset Date Comments Appointment 02/16/2023 Encounter Details Date Type Department Care Team Description 02/16/2023 Telephone Gynecology/Oncology, [place] [address] [place] [address] Nurse, Specialty Appointment Allergies No known active allergiesdocumented as of this encounter (statuses as of 02/16/2023) Medications Medication Sig Dispensed Refills Start Date End Date Status TYLENOL 325 MG PO TABS uses as needed 0 Active Nitroglycerin 0.3 MG Sublingual Tablet Sublingual (NITROSTAT)Indicati [...] 01/20/2023 Active Apixaban 5 MG Oral Tablet (Eliquis)Indication s:Acute CVA (cerebrovascular accident) (HCC),Paroxysmal atrial flutter (HCC) Take 1 Tablet by mouth in the morning and 1 Tablet before bedtime. 60 Tablet 11 01/26/2023 Active Additional Information Patient not taking.Reported on 02/13/2023 Simethicone 125 MG Oral Capsule Take 1 Capsule by mouth. 0 Active Megestrol Acetate 20 MG Oral Tablet (Megace) Take 1 Tablet by mouth in the morning and 1 Tablet before bedtime. 0 02/09/2023 Active oxyCODONE HCl 5 MG Oral Tablet (Oxy IR) Take 1 Tablet by mouth every 8 hours as needed. 0 02/09/2023 Active Ciprofloxacin HCl 500 MG Oral Tablet (Cipro) Take 1 Tablet by mouth in the morning and 1 Tablet before bedtime. 0 Active Metoprolol Succinate ER 25 MG Oral Tablet Extended Release 24 Hour (toPROL XL) Take 1 Tablet by mouth in the morning and 1 Tablet before bedtime. 0 Active documented as of this encounter (statuses as of 02/16/2023) Active Problems Problem Noted Date Pancreatic cancer 02/13/2023 Endometrial cancer 02/04/2023 Acute CVA (cerebrovascular accident) 09/2022 Anxiety 01/26/2023 Elevated troponin 01/26/2023 Genetic carrier status 01/26/2023 Intermittent abdominal pain 01/26/2023 Mass of pancreas 01/26/2023 Paroxysmal atrial flutter 01/26/2023 SVT (supraventricular tachycardia) 01/26 Weakness 01/26/2023 Acute left hemiparesis 01/26/2023 Obesity, morbid, BMI 40.0-49.9 9 Overview: Per Obesity protocol documented as of this encounter (statuses as of 02/16/2023) Resolved Problems Problem Noted Date Resolved Date Obesity, morbid (more than 1 00 lbs over ideal weight or BMI > 40) 01/08/2010 04/08/2019 Overview: Per Obesity Protocol, #19 ICD-10 update of inactive term Dyslipidemia, goal LDL below 100 09/15/2014 Obesity 04/08/2019 Overview: Per Obesity protocol documented as of this encounter (statuses as of 02/16/2023) Immunizations Name Administration Dates Next Due COVID-19 [...] encounter Miscellaneous Notes * Telephone Encounter - Sammie Chowdhruy RN - 02/16/2023 3:29 PM EDT I spoke with patient and her You regarding the appointment on 02/18/23. They do have an early appointment on 02/19/23 at [facility] and it takes several hours to get here. They are planning on keeping the appointment in [facility] and then spending the night. I did arrange a room at the house of care for 02/18/23. documented in this encounter Plan of Treatment Upcoming Encounters Date Type Specialty Care Team Description 02/17/2023 Office Visit Hematology Oncology Crescencio Rosales MD [address] [place] [address] 02/18/2023 Office Visit Gynecology Oncology Filemon Brown MD [address] [place] [address] 02/19/2023 Office Visit Cardiology Salbador Galvin CRNP [address] [place] [address] 02/20/2023 Office Visit Gynecology Obstetrics Backer, TYLER Serrano [address] [place] [address] 03/20/2023 Office Visit Neurology Greer Davis PA-C [address] [place] [address] 04/29/2023 Office Visit Family Medicine [facility]anesa [facility] DO [address] [facility] [address] 04/29/2023 Office Visit Gastroenterology Amberly Turner CRNP [address] [place] [address] Health Maintenance Due Date Last Done Comments [...] Additional history exists Colorectal Cancer Screening 03/09/2024 Diabetes Screening 02/12/2026 02/12/2023, 0 01/16/2023, 01/09/2023, Additional history exists Pap Smear 01/31/2028 01/30/2023, 03/09/2016, 09/09/2013, Additional history exists GARDASIL-HPV IMMUNIZATION SERIES Aged Out No longer [...] filedocumented as of this encounter Care Teams Community Marketing Coordinator Relationship Specialty Start Date End Date Vanesa Solorzano, [address] [place] [address] PCP - General Family Medicine 09/21/18 documented as of this encounter
--- OUTSIDE RECORDS SUMMARY | 2023-04-06 06:19 | External Medical Summary | Summary of Care ---
Author Name Unknown Organization [facility] Address [address] [place] [address] Phone [phone] Care Team Providers Care Military Professional Name Role Phone Michaelmichi Vanesa Tracee HARRIS Primary Care Provider Reason for Visit * Reason Comments IUD Mirena IUD insertion Encounter Details Date Type Department Care Team Description 02/20/2023 Office Visit Gynecology/Obstetrics [facility] [address] [facility] [place] [address] Nida Bordne CRNP [address] [facility] [address] Encounter for IUD insertion*; Endometrial cancer (HCC) [...] cancer (HCC) 1 Each IU ONCE 02/20/2023 02/21/2023 Active documented as of this encounter (statuses [...] mRNA, LNP-s, No Pre serve, 2-Dose Series ([employer]) 10/16/2020,09/25/2020 Seasonal Influenza, Quadriva lent, No Preserve, [...] have pancreatic cancer. Met with oncology and pharmacology professor/oncology. Advised by pharmacology professor/onc to have a Mirena inserted, as she [...] of Mirena IUD Plan: follow up with pharmacology professor/onc as scheduled. Call with bleeding that saturates [...] General Surgery Александр Steiner MD [address] [place] [address] 03/11/2023 Office Visit Hematology Oncology Crescencio Rosales MD [address] [place] [address] 03/20/2023 Office Visit Neurology Greer Davis PA-C [address] [facility] [place], [place] [phone] 03/25/2023 Office Visit Palliative Medicine Mercedes Aranda MD [address] [facility] [place] [address] 04/29/2023 Office Visit Family Medicine Vanesa Solorzano, [address] [place] [address] 04/29/2023 Office Visit Gastroenterology Amberly Turner CRNP [address] [facility] [place] [address] 05/26/2023 Office Visit Gynecology Oncology Brayan Olguin PA-C [address] [place] [address] Health Maintenance Due Date Last Done Comments [...] uteri, except isthmus documented in this encounter Care Teams Military Professional Relationship Specialty Start Date End Date Vanesa Solorzano DO [address] [place] [address] PCP - General Family Medicine 09/21/18 documented as of this encounter
--- OUTSIDE RECORDS SUMMARY | 2023-04-06 06:19 | External Medical Summary | Summary of Care ---
Author Name Unknown Organization [facility] Address [address] [place] [address] Phone [phone] Care Team Providers Care Sweep Press Operator Name Role Phone Vanesa Solorzano Primary Care Provider [phone] Reason for Visit * Reason Comments Consultation * Evaluate & Treat - Unlimited Visits (Within 3 days (urgent)) - Pending Review Specialty Diagnoses / Procedures Referred By Todd t Referred To Contact Gynecologic Oncology / Gynecology Oncology Diagnoses Endometrial cancer (HCC) Estrada Haro MD [address] [place] [address] Referral ID Status Reason Start Date Expiration Date Visits Requested Visits Authorized [id number] Pending Review Specialty Services Required 02/12/[phone] Encounter Details Date Type Department Care Team Description 02/18/2023 Office Visit Gynecology/Oncology, [place] [address] [place] [address] Filemon Brown MD [address] [place] [address] Endometrial cancer (HCC)*; Malignant neoplasm of head of pancreas (HCC) [...] mRNA, LNP-s, No Pre serve, 2-Dose Series ([place]) 10/16/2020,09/25/2020 Seasonal Influenza, Quadriva lent, No Preserve, [...] Sign Reading Time Taken Comments Blood Pressure 119/80 02/18/2023 1:12 PM EDT Pulse 78 02/18/2023 1:12 PM EDT Temperature - - Respiratory Rate 20 02/18/2023 1:12 PM EDT Oxygen Saturation - - Inhaled Oxygen Concentration - - Weight 112 kg (247 lb) 02/18/2023 1:12 PM EDT Height 162.6 cm (5' 4") 02/18/2023 1:12 PM EDT Body Mass Index 42.4 02/18/2023 1:12 PM EDT documented in this encounter Progress Notes * Brayan Olguin PA-C - 02/18/2023 1:30 PM EDT CC: 62 year old female who presents today to discuss treatment options for endometrial cancer. HPI: Jacque Spivey is a pleasant 62 year old who is seen in consultation at the request of Estrada Haro MD. She is referred for my evaluation and recommendations regarding management of FIGO 1 endometrioid adenocarcinoma. Patient was seen by Software Project Engineer with complaints of vaginal bleeding for nearly a year. 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 Of note, patient is on Eliquis for a recent acute CVA, requiring her to be started on Eliquis.She presented to the ED 02/03/2023 with heavy vaginal bleeding since her endometrial biopsy 01/31/20 23. Imaging was obtained revealing a large mass in the pancreatic head for which biopsy ultimately revealed pancreatic ductal adenocarcinoma. Given the two new malignant diagnoses, she was referred to Software Project Engineer Oncology to discuss treatment options. She presents today with her , Travis. She is teary eyed and frustrated with her recent diagnoses. She has complaints of vaginal spotting and fatigue. She denies change appetite, unintentional weight loss, early satiety, bloating, change in bowel or bladder habits, increasing abdominal girth, lower back pain, flank pain, sciatica, lower leg swelling, vaginal bleeding or abnormal discharge. Her work-up included: CT chest/abd/pelvis 02/06/2023: Pancreatic head mass lesion causing pancreatic ductal dilation. Peripancreatic standing could be due to superimposed pancreatitis. Surgical pathology ERCP 02/06/2023: Pancreatic ductal adenocarcinoma A. Endometrium, biopsy 01/30/2023: -- Endometrial endometrioid carcinoma, FIGO 1, in a background of intraepithelial neoplasia (EIN) and polyp. -- See comment. Component Latest Ref Rng 02/12/2023 CA 19-9 <35.0 U/mL 2,311.0 (H) CEA <=5.2 ng/mL 27.4 (H) CA 125 <=38.1 U/mL 259.8 (H) Past MEDICINE AIDE History: Patient is with spontaneous vaginal delivery x0. She is postmenopausal. She denies ever using hormone replacement therapy. Past Surgical History: Procedure Laterality Date COLONOSCOPY, DIAGNOSTIC (RECTUM) 11/15/2013 perianal and digital rectal exam normal, severe stenosis found at 35 cm proximal to the anus and was non-transversed, stricture at 35 cm in colon, CT scan abd/pelvis/COLONOSCOPY FLEXIBLE PROXIMAL DIAGNOSTIC performed by You Gregory MD at ENDOSCOPY [facility] COLONOSCOPY, DIAGNOSTIC (RECTUM) 03/09/2014 COLONOSCOPY FLEXIBLE PROXIMAL DIAGNOSTIC performed by Susu Whittington MD at ENDOSCOPY [facility] LIGATE/CUT OVIDUCT(S) MAMMOGRAM - 1 BREAST 02/13/04 wnl per [facility]-see scan MAMMOGRAM - 1 BREAST 08/26/04 [facility] per [facility] MAMMOGRAM - BILATERAL 03/14/08 wnl MAMMOGRAM SCREENING BILATERAL 05/07/09 wnl- REMOVAL OF APPENDIX 1975 Past Medical History: Diagnosis Date Acute CVA (cerebrovascular accident) (HCC) 01/26/2023 Acute left hemiparesis (HCC) 01/26/2023 Anxiety 01/26/2023 Dyslipidemia, goal LDL below 130 Gestational hypertension Obesity, morbid, BMI 40.0-49.9 (HCC) 04/04/2019 Per Obesity protocol Other screening mammogram 03/10/2005 wnl per [facility] at Paroxysmal atrial flutter (HCC) 01/26/2023 SVT (supraventricular tachycardia) (HCC) 01/26/2023 Patient Active Problem List Diagnosis Code Obesity, morbid, BMI 40.0-49.9 (HCC) E66.01 Acute CVA (cerebrovascular accident) (HCC) I63.9 Anxiety F41.9 Elevated troponin R77.8 Genetic carrier status Z14.8 Intermittent abdominal pain R10.9 Paroxysmal atrial flutter (HCC) I48.92 SVT (supraventricular tachycardia) (HCC) I47.1 Weakness R53.1 Acute left hemiparesis (HCC) G81.94 Endometrial cancer (HCC) C54.1 Pancreatic cancer (HCC) C25.9 Encounter for antineoplastic chemotherapy Z51.11 Current Outpatient Medications Medication Sig Dispense Refill TYLENOL 325 MG PO TABS uses as needed Nitroglycerin 0.3 MG Sublingual Tablet Sublingual (NITROSTAT) Place 1 Tab under the tongue as needed for Pain, Chest. May repeat 3 times. If chest pain continues, call 291. 41 Tab 11 Pantoprazole Sodium 40 MG Oral Tablet Delayed Release (Protonix) Take 1 Tablet by mouth in the morning. Losartan Potassium 50 MG Oral Tablet (Cozaar) Take 1 Tablet by mouth in the morning and 1 Tablet before bedtime. (Patient not taking: Reported on 02/17/2023) Apixaban 5 MG Oral Tablet (Eliquis) Take [...] by mouth every 8 hours as needed. (Patient not taking: Reported on 02/17/2023) Ciprofloxacin HCl 500 MG Oral Tablet (Cipro) Take 1 Tablet by mouth in the morning and 1 Tabletbefore bedtime. (Patient not taking: Reported on 02/17/2023) Metoprolol Succinate ER 25 MG Oral Tablet Extended Release 24 Hour (toPROL XL) Take 1 Tablet bymouth in the morning and 1 Tablet before bedtime. No current facility-administered medications for this visit. Review of patient's allergies indicates: No Known Allergies Review of Systems Constitutional: Positive for fatigue. Negative for appetite change, chills and unexpected weight change. HENT: Negative for congestion, ear pain, facial swelling, hearing loss, nosebleeds, sore throat, tinnitus and trouble swallowing. Eyes: Negative for pain, redness and visual disturbance. Respiratory: Negative for cough, chest tightness, shortness of breath and wheezing. Cardiovascular: Negative for chest pain, palpitations and leg swelling. Gastrointestinal: Negative for abdominal distention, abdominal pain, diarrhea, nausea and vomiting. Endocrine: Negative for polydipsia, polyphagia and polyuria. Genitourinary: Positive for vaginal bleeding. Negative for dysuria, flank pain, frequency, hematuria, pelvic pain, vaginal discharge and vaginal pain. Musculoskeletal: Negative for gait problem, joint swelling and neck stiffness. Skin: Negative for color change, pallor and rash. Allergic/Immunologic: Negative for environmental allergies and food allergies. Neurological: Negative for dizziness, syncope and light-headedness. Hematological: Negative for adenopathy. Does not bruise/bleed easily. Psychiatric/Behavioral: Negative for confusion and hallucinations. The patient is nervous/anxious. Social History Socioeconomic History Marital status: Spouse name: You Number of children: 2 Occupational History Occupation: [employer] Employer: [employer] Comment: [employer] Occupation: [employer] Comment: 2009 Tobacco Use Smoking status: Never Smokeless tobacco: Never Substance and Sexual Activity Alcohol use: Yes Comment: Occasionally Drug use: No Sexual activity: Yes Partners: Male control/protection: Surgical Comment: BTL Social History Narrative Working at [employer]. Son George, and living with her. And . Social Determinants of Health Food Insecurity: Unknown Worried About Running Out of Food in the Last Year: Patient refused Ran Out of Food in the Last Year: Patient refused Family History Problem Relation Age of Onset Hyperlipidemia Mother Osteoporosis Mother Prostate cancer Father Stroke Brother Heart attack Brother Diabetes Brother Hypertension Brother Breast Cancer Grandmother (Paternal) ECOG performance status: 1 PHYSICAL EXAM: BP 119/80 (BP Site: Right Arm, BP Position: Sitting, BP Cuff Size: Regular) | Pulse 78 | Resp 20 | Ht 1.626 m (5' 4") | Wt 112 kg (247 lb) | LMP (LMP Unknown) | BMI 42.40 kg/m | BSA 2.25 m General: well developed woman in no acute distress. Alert and oriented x 3, appropriate mood and affect Neck: supple, no thyromegaly, no adenopathy, no nodularity Lungs: clear to auscultation bilaterally, unlabored respiratory effort, equal chest rise bilaterally CV: normal rate and rhythm, no murmur or gallop Breasts: deferred Abdomen: soft, bowel sounds present in all quadrants, non-tender, no rebound tenderness, non-distended, no palpable masses No CVA tenderness bilaterally Pelvic exam deferred Extremities: bilateral peripheral edema, no calf tenderness Neuro: grossly intact, fluent speech, attentive Skin: warm, dry, no worrisome lesions IMPRESSION: 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 Discussed treatment options and that , at this time, she is not a surgical candidate given her comorbidities. It has been arranged for her to get an IUD with Software Project Engineer on 02/20. She will return in 3 months for an endometrial biopsy. Brayan Olguin PA-C 02/18/2023 3:03 PM I performed a history and physical examination of the patient. My impression and plan are as documented above. I have discussed the patient's management with Brayan Olguin PA-C. Please refer to the physician academic support assistant's note for the documented findings and plan of care. Any edits that were required are reflected above. The patient is a delightful but unfortunate 62-year-old with FIGO grade 1 endometrial cancer as well as newly diagnosed pancreatic cancer. Her pancreatic cancer treatment should take precedence over her endometrial cancer as it is significantly more morbid. In terms of her endometrial cancer, we have requested that the referring physician place a Mirena IUD which should be adequate treatment for endometrial cancer. This is scheduled for February 20, 2023. The patient will return in 3 months for surveillance which will consist of endometrial biopsies. The patient is already scheduled with Medical Oncology for discussions regarding treatment options for pancreatic cancer. I spent a total of Greater than 55 mins (exact time 92 mins) on the date of service in preparation,delivery, and documentation of the care provided to Jacque Spivey excluding any time spent in the performance of separately billed services. Filemon Brown MD, PhD, FACOG, FACS Chief, Gynecologic Oncology Director of Robotic Surgery for [facility] documented in this encounter Nursing Notes * ELVIRA Lazar - 02/18/2023 1:09 PM EDT Jacque presents in clinic today for consulation documented in this encounter Plan of Treatment Upcoming Encounters Date Type Specialty Care Team Description 02/19/2023 Cardiac Studies Cardiac Studies Nikki, Ekg [address] [place] [address] 02/19/2023 Office Visit Cardiology Salbador Galvin CRNP [address] [place] [address] 02/20/2023 Office Visit Gynecology Obstetrics Backer, TYLER Serrano [address] [place] [address] 02/24/2023 Telemedicine General Surgery Александр Steiner MD [address] [place] [address] 03/11/2023 Office Visit Hematology Oncology Crescencio Rosales MD [address] [place], [place] [phone] 03/20/2023 Office Visit Neurology Greer Davis PA-C [address] [place], [place] [id number] 04/29/2023 Office Visit Family Medicine Vanesa Solorzano DO [address] [place] [address] 04/29/2023 Office Visit Gastroenterology Amberly Turner CRNP [address] [facility] [place] [address] 05/26/2023 Office Visit Gynecology Oncology Brayan Olguin PA-C [address] [place], [place] [id number] Scheduled Referrals Name Type Priority Associated Diagnoses Orde r Schedule NAPHTHALENE OPERATOR HELPER/ONC REFERRAL OP Referral Within 3 day s (urgent) Endometrial cancer (HCC) Ordered: 02/12/2023 Health Maintenance Due Date Last Done Comments [...] as of this encounter Visit Diagnoses Diagnosis Endometrial cancer (HCC)- Primary Malignant neoplasm of corpus uteri, except isthmus Malignant neoplasm of head of pancreas (HCC) Malignant neoplasm of head of pancreas documented in this encounter Care Teams Sweep Press Operator Relationship Specialty Start Date End Date Vanesa Solorzano, DO [address] [place], [place] [phone] PCP - General Family Medicine 09/21/18 documented as of this encounter
--- OUTSIDE RECORDS SUMMARY | 2023-04-06 06:19 | External Medical Summary | Summary of Care ---
Author Name Unknown Organization [facility] Address [address] [place] [address] Phone [phone] Care Team Providers Care Director Client Name Role Phone Vanesa Solorzano Primary Care Provider Reason for Visit * Reason Onset Date Comments Genetic Counseling 02/20/2023 Referral Encounter Details Date Type Department Care Team Description 02/20/2023 Telephone Genetics [facility], [facility] [address] [place] [address] Randa Hook CHRA Genetic Counseling (Referral) Allergies No known active allergiesdocumented as of [...] mRNA, LNP-s, No Pre serve, 2-Dose Series ([employer]) 10/16/2020,09/25/2020 Seasonal Influenza, Quadriva lent, No Preserve, [...] Encounters Date Type Specialty Care Team Description 02/20/2023 Office Visit Gynecology Obstetrics Nida Borden CRNP [address] [facility] [place] [address] 02/24/2023 Telemedicine General Surgery Александр Steiner MD [address] [place] [address] 03/11/2023 Office Visit Hematology Oncology Crescencio Rosales MD [address] [place], [place] [phone] 03/20/2023 Office Visit Neurology Greer Davis PA-C [address] [place] [address] 04/29/2023 Office Visit Family Medicine Vanesa Solorzano, DO [address] [place] [address] 04/29/2023 Office Visit Gastroenterology Amberly Turner CRNP [address] [place] [address] 05/26/2023 Office Visit Gynecology Oncology Brayan Olguin PA-C [address] [place], [place] [phone] Health Maintenance Due Date Last Done Comments [...] filedocumented as of this encounter Care Teams Director Client Relationship Specialty Start Date End Date Vanesa Solorzano, DO [address] [place], [place] [phone] PCP - General Family Medicine 09/21/18 documented as of this encounter
--- OUTSIDE RECORDS SUMMARY | 2023-04-06 06:19 | External Medical Summary | Summary of Care ---
Author Name Unknown Organization [facility] Address [address] [place] [address] Phone [phone] Care Team Providers Care Software Quality Assurance Analyst Name Role Phone Vanesa Solorzano Primary Care Provider [phone] Reason for Visit * Reason Comments Research Screening Encounter Details Date Type Department Care Team Description 02/18/2023 Documentation Hematology Oncology [facility] [place] [address] [place] [address] [facility] [address] Office Hem Onc [address] [place] [address] Allergies No known active allergiesdocumented [...] times. If chest pain continues, call [phone]. [phone] Tab 11 05/31/2020 Active Pantoprazole Sodium 40 [...] as of this encounter Miscellaneous Notes * Research Note - Adeline Cristina RN - 02/18/2023 10:25 AM EDT At the request of [facility], this patient has been screened for possible clinical trials options for their diagnosis. There are no clinical trials available at this time for this patient. Patient screened by Adeline Cristina RN CRC documented in this encounter Plan of Treatment Upcoming Encounters Date Type Specialty Care Team Description 02/18/2023 Office Visit Gynecology Oncology Filemon Brown MD [address] [place] [address] 02/19/2023 Cardiac Studies Cardiac Studies Nikki, Ekg [address] [facility] [place] [id number] 02/19/2023 Office Visit Cardiology Salbador Galvin CRNP [address] [facility] [place] [address] 02/20/2023 Office Visit Gynecology Obstetrics Nida Borden CRNP [address] [place] [address] 02/24/2023 Telemedicine General Surgery Александр Steiner MD [address] [place] [address] 03/11/2023 Office Visit Hematology Oncology Crescencio Rosales MD [address] [place] [address] 03/20/2023 Office Visit Neurology Greer Davis PA-C [address] [place] [address] 04/29/2023 Office Visit Family Medicine Vanesa Solorzano, [address] [place] [address] 04/29/2023 Office Visit Gastroenterology Amberly Turner CRNP [address] [place] [address] Health Maintenance Due Date Last Done Comments [...] Additional history exists Pap Smear 01/31/2028 01/30/2023, 03/0 09/2016, 09/09/2013, Additional history exists GARDASIL-HPV IMMUNIZATION SERIES [...] filedocumented as of this encounter Care Teams Software Quality Assurance Analyst Relationship Specialty Start Date End Date Vanesa Solorzano, [address] [place] [address] PCP - General Family Medicine 09/21/18 documented as of this encounter
--- OUTSIDE RECORDS SUMMARY | 2023-04-06 06:19 | External Medical Summary | Summary of Care ---
Author Name Unknown Organization [facility] Address [address] [place] [address] Phone [phone] Care Team Providers Care Golf Player Assistant Name Role Phone MichaelVanesa borden Primary Care Provider Encounter Details Date Type Department Care Team Description 02/06/2023 Procedure Only Endoscopy, [facility] [address] [place] [address] Odilia Ring DO [address] [facility] [place] [address] Canceled (Patient Admitted) Allergies No known active allergiesdocumented as of this encounter (statuses as of 02/17/2023) Medications Medication Sig Dispensed Refills Start Date End Date Status TYLENOL 325 MG PO TABS uses as needed 0 Active Nitroglycerin 0.3 MG Sublingual Tablet Sublingual (NITROSTAT)Indicati ons:Chest pain, unspecified type Place 1 Tab under the tongue as needed for Pain, Chest. May repeat 3 times. If chest pain continues, call 911. 32 Tab 11 05/31/2020 Active Pantoprazole Sodium 40 [...] as of this encounter (statuses as of 02/17/2023) Active Problems Problem Noted Date Pancreatic cancer [...] as of this encounter (statuses as of 02/17/2023) Resolved Problems Problem Noted Date Resolved Date Obesity, morbid (more than 1 00 lbs over ideal weight or BMI > 40) 01/08/2010 04/08/2019 Overview: Per Obesity Protocol, #19 ICD-10 update of inactive term Dyslipidemia, goal LDL below 100 09/15/2014 Obesity 04/08/2019 Overview: Per Obesity protocol documented as of this encounter (statuses as of 02/17/2023) Immunizations Name Administration Dates Next Due COVID-19 mRNA, LNP-s, No Pre serve, 2-Dose Series ([employer]) 10/16/2020,09/25/2020 Seasonal Influenza, Quadriva lent, No Preserve, [...] Visit Hematology Oncology Crescencio Rosales MD [address] [place] [address] Arrived 02/18/2023 Office Visit Gynecology Oncology Filemon Brown MD [address] [place], [place] [phone] 02/19/2023 Office Visit Cardiology Salbador Galvin CRNP [address] [place] [address] 02/20/2023 Office Visit Gynecology Obstetrics Nida Borden CRNP [address] [facility] [address] 03/20/2023 Office Visit Neurology Greer Davis PA-C [address] [place] [address] 04/29/2023 Office Visit Family Medicine Vanesa Solorzano, DO [address] [place] [address] 04/29/2023 Office Visit Gastroenterology Amberly Turner CRNP [address] [place] [address] Health Maintenance Due Date Last Done Comments [...] Additional history exists Pap Smear 01/31/2028 01/30/2023, 09/2016, 09/09/2013, Additional history exists GARDASIL-HPV IMMUNIZATION [...] Procedure Name Priority Date/Time Associated Diagnosis Comments UPPER ENDOSCOPIC U/S 02/06/2023 ERCP 02/06/2023 UPPER GI ENDOSCOPY 02/06/2023 documented in this encounter Results * UPPER ENDOSCOPIC U/S (02/06/2023) 02/06/2023 Odilia Ring DO GASTRO UPPER * ERCP (02/06/2023) 02/06/2023 Odilia Ring DO GASTRO UPPER * UPPER GI ENDOSCOPY (02/06/2023) 02/06/2023 Odilia Ring DO GASTRO UPPER documented in this encounter Care Teams Golf Player Assistant Relationship Specialty Start Date End Date Vanesa Solorzano, [address] [place] [address] PCP - General Family Medicine 09/21/18 documented as of this encounter
--- OUTSIDE RECORDS SUMMARY | 2023-04-06 06:19 | External Medical Summary | Summary of Care ---
Author Name Unknown Organization [facility] Address [address] [place] [address] Phone [phone] Care Team Providers Care Maitre D Name Role Phone Vanesa Solorzano Primary Care Provider Reason for Visit * Reason Onset Date Comments Precert Future 02/18/2023 FOLFIRINOX Encounter Details Date Type Department Care Team Description 02/18/2023 Telephone Hematology/Oncology Treatment, [place] [address] [facility] [place] [address] Crescencio Rosales MD [address] [place] [address] Precert Future (FOLFIRINOX) Allergies No known active [...] 3 times. If chest pain continues, call [phone]. [phone] Tab 11 05/31/2020 Active Pantoprazole Sodium 40 [...] 11:36 AM EDT Order received for FOLFIRINOX. [place] plan placed on hold- patient has appt with women's apparel salesperson/onc for endometrial cancer 02/18/23, also scheduled to see gen surg 02/24/23 to discuss surgical options. Patient is returning 03/11/[address] Rosales and decide on proceeding with chemotherapy. documented in this encounter Plan of Treatment Upcoming Encounters Date Type Specialty Care Team Description 02/18/2023 Office Visit Gynecology Oncology Filemon Brown MD [address] [place] [address] CC: 62 year old female who presents today to discuss treatment options 02/19/2023 Cardiac Studies Cardiac Studies Nikki, Ekg [address] [place] [phone] 02/19/2023 Office Visit Cardiology Salbador Galvin CRNP [address] [place] [address] 02/20/2023 Office Visit Gynecology Obstetrics BackerNida CRNP [address] [place] [address] 02/24/2023 Telemedicine General Surgery Александр Steiner MD [address] [place], [place] [phone] 03/11/2023 Office Visit Hematology Oncology Crescencio Rosales MD [address] [place] [address] 03/20/2023 Office Visit Neurology Greer Davis PA-C [address] [place] [address] 04/29/2023 Office Visit Family Medicine Vanesa Solorzano, DO [address] [place] [address] 04/29/2023 Office Visit Gastroenterology Amberly Turner CRNP [address] [place] [address] Health Maintenance Due Date Last Done Comments [...] 03/09/2016, 09/09/2013, Additional history exists Diabetes Screening 02/12/2026 [...] filedocumented as of this encounter Care Teams Maitre D Relationship Specialty Start Date End Date Vanesa Solorzano DO [address] [place] [address] PCP - General Family Medicine 09/21/18 documented as of this encounter
--- OUTSIDE RECORDS SUMMARY | 2023-04-06 06:19 | External Medical Summary | Summary of Care ---
Author Name Unknown Organization [facility] Address [address] [place] [address] Phone [phone] Care Team Providers Care Advertising Sales Representative Name Role Phone Vanesa Solorzano Primary Care Provider [phone] Encounter Details Date Type Department Care Team Description 01/02/2023 Orders Only Hematology/Oncology Marcio Fry [place] 200 [facility] [place] [address] Crescencio Rosales MD 200 [facility] [place] [address] Allergies No known active allergiesdocumented as of this encounter (statuses as of 02/17/2023) Medications Medication Sig Dispensed Refills Start Date End Date Status TYLENOL 325 MG PO TABS uses as needed 0 Active Nitroglycerin 0.3 MG Sublingual Tablet Sublingual (NITROSTAT)Indications: Chest pain, unspecified type Place 1 Tab under the tongue as needed for Pain, Chest. May repeat 3 times. If chest pain continues, call 911. 32 Tab 11 05/31/2020 Active documented as of this encounter (statuses [...] mRNA, LNP-s, No Pre serve, 2-Dose Series ([employer]) 10/16/2020,09/25/2020 Seasonal Influenza, Quadriva lent, No Preserve, [...] Date Type Specialty Care Team Description 02/18/2023 Laboratory Laboratory [place], Laboratory [address] [place] [address] 02/18/2023 Office Visit Gynecology Oncology Filemon Brown MD [address] [place] [address] 02/19/2023 Office Visit Cardiology Salbador Galvin CRNP [address] [place] [address] 02/20/2023 Office Visit Gynecology Obstetrics Nida Broden CRNP [address] [place] [address] 03/11/2023 Office Visit Hematology Oncology Crescencio Rosales MD [address] [place], [place] [phone] 03/20/2023 Office Visit Neurology Greer Davis PA-C [address] [place] [address] 04/29/2023 Office Visit Family Medicine Vanesa Solorzano, DO [address] [place] [address] 04/29/2023 Office Visit Gastroenterology Amberly Turner CRNP [address] [facility] [address] Health Maintenance Due Date Last Done Comments [...] - CT (IMAGES ONLY, NO REPORT) Routine 01/02/2023 1:15 PM EDT documented in this encounter Results * RADIOLOGY EXAM - CT (IMAGES ONLY, NO REPORT) (01/02/2023 1:15 PM EDT) 01/02/2023 1:15 PM EDT Narrative Scheduling, Silent - 02/17/2023 8:20 PM EDT This is an imaging study not interpreted or resulted by a [facility] or [facility] contracted radiologist. Crescencio Rosales MD RAD CT documented in this encounter Care Teams Advertising Sales Representative Relationship Specialty Start Date End Date Vanesa Solorzano, DO [address] [place], [place] [phone] PCP - General Family Medicine 09/21/18 documented as of this encounter
--- OUTSIDE RECORDS SUMMARY | 2023-04-06 06:19 | External Medical Summary | Summary of Care ---
Author Name Unknown Organization [facility] Address [address] [place] [address] Phone [phone] Care Team Providers Care Squad Leader Name Role Phone Vanesa Solorzano Primary Care Provider Encounter Details Date Type Department Care Team Description 01/04/2023 Hospital Encounter Radiology Film File [address] [place] [address] Allergies No known active allergiesdocumented [...] call 911. 25 Tab 11 05/31/2020 Active documented as of [...] mRNA, LNP-s, No Pre serve, 2-Dose Series ([facility]) 10/16/2020,09/25/2020 Seasonal Influenza, Quadriva lent, No Preserve, [...] Gynecology Oncology Filemon Brown MD [address] [facility] [place] [address] CC: 62 year old female who presents today to discuss treatment options 02/19/2023 Cardiac Studies Cardiac Studies Nikki, Ekg [address] [facility] [place] [address] 02/19/2023 Office Visit Cardiology Salbador Galvin CRNP [address] [place] [address] 02/20/2023 Office Visit Gynecology Obstetrics BackerNida CRNP [address] [place] [address] 02/24/2023 Telemedicine General Surgery Александр Steiner MD [address] [place] [address] 03/11/2023 Office Visit Hematology Oncology Crescencio Rosales MD 200 [place], [place] [address] 03/20/2023 Office Visit Neurology Greer Davis PA-C [address] [place] [address] 04/29/2023 Office Visit Family Medicine Vanesa Solorzano, DO [address] [place] [address] 04/29/2023 Office Visit Gastroenterology Amberly Turner CRNP [address] [place] [address] Health Maintenance Due Date Last Done Comments [...] Date/Time Associated Diagnosis Comments RADIOLOGY EXAM - MRI (IMAGES ONLY, NO REPORT) Routine 01/04/2023 12:00 PM EDT documented in this encounter Results * RADIOLOGY EXAM - MRI (IMAGES ONLY, NO REPORT) (01/04/2023 12:00 PM EDT) 01/04/2023 11:5 6 AM EDT Narrative Scheduling, Silent - 02/17/2023 8:18 PM EDT This is an imaging study not interpreted or resulted by a [facility] or [facility] radiologist. Crescencio Rosales MD RAD MRI-MRA documented in this encounter Care Teams Squad Leader Relationship Specialty Start Date End Date Vanesa Solorzano, DO [address] [place] [address] PCP - General Family Medicine 09/21/18 documented as of this encounter
--- OUTSIDE RECORDS SUMMARY | 2023-04-06 06:19 | External Medical Summary | Summary of Care ---
Author Name Unknown Organization [facility] Address [address] [place] [address] Phone [phone] Care Team Providers Care Academic Affairs Specialist Name Role Phone Vanesa Solorzano Primary Care Provider [phone] Encounter Details Date Type Department Care Team Description 02/06/2023 Orders Only Hematology/Oncology Marcio Fry [place] 200 [facility] [place] [address] Crescencio Rosales MD [address] [place] [address] Allergies No known active allergiesdocumented as of [...] times. If chest pain continues, call 911. 44 Tab 11 05/31/2020 Active Pantoprazole Sodium 40 [...] Specialty Care Team Description 02/18/2023 Laboratory Laboratory [facility] [address] [place] [address] 02/18/2023 Office Visit Gynecology Oncology Filemon Brown MD [address] [place] [address] 02/19/2023 Office Visit Cardiology Salbador Galvin CRNP [address] [place], [place] [address] 02/20/2023 Office Visit Gynecology Obstetrics Nida Borden CRNP [address] [place] [address] 03/11/2023 Office Visit Hematology Oncology Crescencio Rosales MD [address] [place] [address] 03/20/2023 Office Visit Neurology Greer Davis PA-C [address] [place] [address] 04/29/2023 Office Visit Family Medicine Vanesa Solorzano DO [address] [place] [address] 04/29/2023 Office Visit Gastroenterology Amberly Turner CRNP [address] [facility] [address] Health Maintenance Due Date Last Done Comments [...] interpreted or resulted by a [facility] or [facility] contracted radiologist. Crescencio Rosales MD RAD CT documented in this encounter Care Teams Academic Affairs Specialist Relationship Specialty Start Date End Date Vanesa Solorzano, DO [address] [place] [address] PCP - General Family Medicine 09/21/18 documented as of this encounter
--- OUTSIDE RECORDS SUMMARY | 2023-04-06 06:19 | External Medical Summary | Summary of Care ---
Author Name Unknown Organization [facility] Address [address] [place] [address] Phone [phone] Care Team Providers Care Photolithographic Stripper Name Role Phone MichaelVanesa borden Primary Care Provider Reason for Visit * Reason Onset Date Comments Advice 02/13/2023 Encounter Details Date Type Department Care Team Description 02/13/2023 Telephone Gynecology/Obstetrics [facility] [address] [facility] [place] [address] Nida Borden CRNP [address] [facility] [address] Advice Allergies No known active allergiesdocumented as of [...] times. If chest pain continues, call 911. 63 Tab 11 05/31/2020 Active Pantoprazole Sodium 40 [...] encounter Miscellaneous Notes * Telephone Encounter - Christi Fry RN - 02/13/2023 3:55 PM EDT I spoke with pt's and clarified. He states that Dr. Cabrera had spoke with Dr. Ring and he was okay with it leaving it up to Dr. Doty. Advised that I would reach out to Dr. Cabrera to advise. I advised that I would reach out after speaking with Dr. Brown's office as well. He was thankful as they are going to many appointments at this time and if they didn't need to go to [facility]ana on Thursday, that would be one less. You asked that I reach back out via [facility] as he is doing yardwork currently. * Telephone Encounter - Christi Fry RN - 02/13/2023 3:[address] Doty, pt may restart both meds now that dx has been made. Appt made for the IUD placement with Salbador next Thursday at 130. I called pt and she is more confused now. She was told that Dr. Ring wants her to stay off this med and now we are telling her its okay. I advised pt that from a biomass power plant manager standpoint, Dr. Doty was fine with it but if she was told by Dr. Ring not to use it, that would be what she should do. Pt was not aware of the IUD option and need for appt for that. She was aware she was to see Dr. Brown on Thursday, only. Should she still see him, they are planning to? If not, Nida asked if an IUD is placed, should she rebiopsy at some point? I advised pt that I would get clarification on if she should be on the anticoags at this point or not. I also advised that I would reach out to Dr. Brown's office to see if she still should keep apptfor Thursday. Pt did have her son with her but stated that her was outside. She asked that he call us back so we can go over everything with him. * Telephone Encounter - TYLER Ag - 02/13/2023 2:08 PM EDT Pt was on Eliquis and ASA, both stopped following heavy vaginal bleeding s/p EMB. Neurology is asking whether or not these can be restarted - ok to restart? TYLER Kaminski * Telephone Encounter - TYLER Ag - 02/13/2023 12:[address] Brown (biomass power plant manager/onc): I had my office call and get an update. The patient definitely has pancreatic cancer. My office will reach out to the referring GLUE MACHINE OPERATOR and instruct them to place an IUD for her endometrial cancer. Her pancreatic cancer is now the more important issue. I see her on the . At this point, I have no intention of surgically intervening for her endometrial cancer as this is the lesser of the two issues. Thanks. * Telephone Encounter - Christi Fry RN - 02/13/2023 12:09 PM EDT Will ask Dr. Doty to review if anticoags? Precert is back and we are covered to place. No out of pocket cost. Will look for spot for pt to place IUD and have Dr. Doty review * Telephone Encounter - TYLER Ag - 02/13/2023 11:58 AM EDT Please see question from Dr Cabrera; can you discuss w/railroad construction director OBGYN? Thanks, TYLER Kaminski * Telephone Encounter - TYLER Ag - 02/13/2023 11:58 AM EDT ----- Message from Filemon Brown MD sent at 02/13/2023 11:52 AM EDT ----- I can not comment as I have not seen the patient. I will say, I highly suspect this patient has a GI or pancreatic cancer as well based upon imaging and tumor markers. We have reached out to the Gynecology team in [place] to place Mirena IUD in the interim. ----- Message ----- From: TYLER Ag Sent: 02/13/2023 11:42 AM EDT To: Conchita Cabrera MD, # From a biomass power plant manager perspective, I would defer to biomass power plant manager/onc as they will be seeing her for endometrial cancer.CC'ing Dr Brown. Nida ----- Message ----- From: Conchita Cabrera MD Sent: 02/13/2023 11:37 AM EDT To: Odilia Ring DO, # Pt seeing me in follow-up for stroke, Needs anticoagulants. From your perspectives is it safe to resume and at what amt of bleeding should she seek advice. If ac not ok asa? Conchita documented in this encounter Plan of Treatment Upcoming Encounters Date Type Specialty Care Team Description 02/18/2023 Office Visit Gynecology Oncology Filemon Brown MD [address] [place] [address] 02/19/2023 Office Visit Cardiology Salbador Galvin CRNP [address] [place], [place] [address] 02/20/2023 Office Visit Gynecology Obstetrics Nida Borden CRNP [address] [facility] [address] 03/11/2023 Office Visit Hematology Oncology Crescencio Rosales MD [address] [place] [address] 03/20/2023 Office Visit Neurology Greer Davis PA-C [address] [facility] [place] [address] 04/29/2023 Office Visit Family Medicine Vanesa Solorzano, DO [address] [place] [address] 04/29/2023 Office Visit Gastroenterology Amberly Turner CRNP [address] [place] [address] Health Maintenance Due Date Last Done Comments [...] filedocumented as of this encounter Care Teams Photolithographic Stripper Relationship Specialty Start Date End Date Vanesa Solorzano, [address] [place] [address] PCP - General Family Medicine 09/21/18 documented as of this encounter
--- OUTSIDE RECORDS SUMMARY | 2023-04-06 06:19 | External Medical Summary | Summary of Care ---
Author Name Unknown Organization [facility] Address [address] [place] [address] Phone [phone] Care Team Providers Care Shop Cooper Name Role Phone Vanesa Solorzano Primary Care Provider Reason for Referral * Evaluate & Treat - Unlimited Visits (Within 10 days (routine)) - Pending Review Specialty Diagnoses / Procedures Referred By Todd young Referred To Contact Hospice and Palliative Medicine / Palliative Medicine Diagnoses Malignant neoplasm of head of pancreas (HCC) Crescencio Rosales MD [address] [place] [address] Referral ID Status Reason Start Date Expiration Date Visits Requested Visits Authorized [id number] Pending Review Specialty Services Required 02/17/2023 999 999 Question Answer Referral Priority Within 10 days (routine) Reason for Referral: Cancer Palliative Medicine To Address: Pain & Symptom Management Is this referral for [facility]iative service? ([facility] Insurance Only) No Reason for Visit * Reason Comments Consultation Consult * Evaluate & Treat - Unlimited Visits (Within 10 days (routine)) - Pending Review Specialty Diagnoses / Procedures Referred By Todd young Referred To Contact Hematology/Oncology / Hematology Oncology Diagnoses Malignant neoplasm of head of pancreas (HCC) Odilia Ring DO [address] [facility] [address] Referral ID Status Reason Start Date Expiration Date Visits Requested Visits Authorized [id number] Pending Review Specialty Services Required 02/13/2023 999 999 Encounter Details Date Type Department Care Team Description 02/17/2023 Office Visit Hematology/Oncology [place] 200 [facility] [place] [address] Crescencio Roslaes MD 200 [facility] [place] [address] Malignant neoplasm of head of pancreas (HCC)* [...] mRNA, LNP-s, No Pre serve, 2-Dose Series ([employer]) 10/16/2020,09/25/2020 Seasonal Influenza, Quadriva lent, No Preserve, [...] Patient, Epic record. 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 Son George, and living with her. And [...] left side. She will be seen by ob gyn physician assistant oncology tomorrow and appointmentfor the surgical Oncology [...] cancer she will be seen by the ob gyn physician assistant oncologist tomorrow. Discussed with the patient and in detail about diagnosis and reviewed all the available pathology and CT scan and endoscopic finding with them. [email or web address] were reviewed. PLAN: As above. She will return to clinic in 3 weeks. Further management will depend on the recommendation from Surgical team and also from the ob gyn physician assistant Oncology team. The patient voiced understanding of [...] in this encounter Nursing Notes * Christi Gonzáles, AIMEE - 02/17/2023 8:16 AM EDT Patient identifed [...] Gynecology Oncology Filemon Brown MD [address] [place] [address] 02/19/2023 Office Visit Cardiology Salbador Galvin CRNP [address] [place] [address] 02/20/2023 Office Visit Gynecology Obstetrics Nida Borden CRNP [address] [place] [address] 03/11/2023 Office Visit Hematology Oncology Crescencio Rosales [facility] [address] 03/20/2023 Office Visit Neurology Greer Davis PA-C [address] [place] [address] 04/29/2023 Office Visit Family Medicine Vanesa Solorzano, DO [address] [place] [address] 04/29/2023 Office Visit Gastroenterology Amberly Turner, TYLER [address] [place] [address] Scheduled Referrals Name Type Priority Associated Diagnoses [...] pancreas documented in this encounter Care Teams Shop Cooper Relationship Specialty Start Date End Date Vanesa Solorzano, DO [address] [place] [address] PCP - General Family Medicine 09/21/18 documented as of this encounter
--- OUTSIDE RECORDS SUMMARY | 2023-04-06 06:19 | External Medical Summary ---
Author Name Unknown Address Unknown Organization K01:[facility] - [address] [facility] [address] [facility] [address] Laboratory Report Ordering Provider Test Date Status SYLWIA QUINTEROS 02/16/2023 15:44:07 Final Observation Date Value Abnormality Reference (Units ) Status COMMENT 02/16/2023 15:44:07 Rcvd request, Not yet accessioned. Final COMMENT 02/16/2023 15:44:[address] Rosales to see which case this NGS testing is going to be done on... He forwarded the message to Nurse Navigator because he is off this week 02/19/23.Rcvd msg from Ayana Gudino: "Dr. Rosales said he wants it on the [facility] specimen so im getting it set up" 02/20/23 Final COMMENT 02/16/2023 15:44:07 Slides received from [facility],gave to [facility] for review 02/25/23 lmt. Block A1 requested from [facility] for NGS testing with 20% tumor as per SZ 02/25/23 lmt. Final COMMENT 02/16/2023 15:44:07 Block A1 rcvd from [facility], msg. To Dr. Sanford to order NGS testing after block is accessioned 02/27/23 lmt. Testing ordered by SZ 02/27/23 Final COMMENT 02/16/2023 15:44:07 Testing to be performed in house Final Performing Location [facility] - [address] [place] [address]
--- OUTSIDE RECORDS SUMMARY | 2023-04-06 06:19 | External Medical Summary | Summary of Care ---
Author Name Unknown Organization [facility] Address [address] [place] [address] Phone [phone] Care Team Providers Care Founder Name Role Phone Vanesa Solorzano Primary Care Provider [phone] Encounter Details Date Type Department Care Team Description 02/18/2023 Orders Only Cardiology [facility] [address] [place], [place] [phone] Salbador Galvin CRNP [address] [place], [place] [phone] Encounter to establish care* Allergies No known active allergiesdocumented as of [...] times. If chest pain continues, call 911. 37 Tab 11 05/31/2020 Active Pantoprazole Sodium 40 [...] Specialty Care Team Description 02/18/2023 Laboratory Laboratory [facility] [address] [place], [place] [id number] Hyperglycemia 02/18/2023 Office Visit Gynecology Oncology Filemon Brown MD [address] [place] [address] 02/19/2023 Office Visit Cardiology Salbador Galvin CRNP [address] [place] [address] 02/20/2023 Office Visit Gynecology Obstetrics Nida Borden CRNP [address] [place] [address] 03/11/2023 Office Visit Hematology Oncology Crescencio Rosales MD 200 [facility] [place] [address] 03/20/2023 Office Visit Neurology Greer Davis PA-C [address] [facility] [place] [id number] 04/29/2023 Office Visit Family Medicine Vanesa Solorzano DO [address] [facility] [address] 04/29/2023 Office Visit Gastroenterology Amberly Turner, TYLER [address] [place] [address] Scheduled Orders Name Type Priority Associated Diagnoses Orde r Schedule EKG EKG Routine Encounter to establish care Ordered: 02/18/2023 Health Maintenance Due Date Last Done Comments [...] as of this encounter Visit Diagnoses Diagnosis Hyperglycemia Other abnormal glucose Encounter to establish care- Primary Other reasons for seeking consultation documented in this encounter Care Teams Founder Relationship Specialty Start Date End Date Vanesa Solorzano, [address] [place] [address] PCP - General Family Medicine 09/21/18 documented as of this encounter
--- OUTSIDE RECORDS SUMMARY | 2023-04-06 06:19 | External Medical Summary | Summary of Care ---
Author Name Unknown Organization [facility] Address [address] [place] [address] Phone [phone] Care Team Providers Care Client Services Vice President Name Role Phone Vanesa Solorzano Primary Care Provider Encounter Details Date Type Department Care Team Description 01/02/2023 Hospital Encounter Radiology Film File [address] [place] [address] Allergies No known active allergiesdocumented [...] mRNA, LNP-s, No Pre serve, 2-Dose Series ([place]) 10/16/2020,09/25/2020 Seasonal Influenza, Quadriva lent, No Preserve, [...] Gynecology Oncology Filemon Brown MD [address] [facility] [place] [address] CC: 62 year old female who presents today to discuss treatment options 02/19/2023 Cardiac Studies Cardiac Studies Nikki, Ekg [address] [facility] [place] [address] 02/19/2023 Office Visit Cardiology Salbador Galvin CRNP [address] [place] [address] 02/20/2023 Office Visit Gynecology Obstetrics BackerNida CRNP [address] [place] [address] 02/24/2023 Telemedicine General Surgery Александр Steiner MD [address] [place] [address] 03/11/2023 Office Visit Hematology Oncology Crescencio Rosales MD [address] [place], [place] [address] 03/20/2023 Office Visit Neurology Greer Davis PA-C [address] [place] [address] 04/29/2023 Office Visit Family Medicine Vanesa Solorzano, DO [address] [place] [address] 04/29/2023 Office Visit Gastroenterology Amberly Turner CRNP [address] [place] [address] Health Maintenance Due Date Last Done Comments [...] interpreted or resulted by a [facility] or [facility] contracted radiologist. Crescencio Rosales MD RAD CT documented in this encounter Care Teams Client Services Vice President Relationship Specialty Start Date End Date Vanesa Solorzano, DO [address] [place] [address] PCP - General Family Medicine 09/21/18 documented as of this encounter
--- OUTSIDE RECORDS SUMMARY | 2023-04-06 06:19 | External Medical Summary | Summary of Care ---
Author Name Unknown Organization [facility] Address [address] [place] [address] Phone [phone] Care Team Providers Care Bullard Machine Operator Name Role Phone Vanesa Solorzano Primary Care Provider Reason for Visit * Reason Comments Outpatient Testing Encounter Details Date Type Department Care Team Description 02/18/2023 Laboratory Laboratory, [place] [address] [place] [address] [place] [address] [place] [address] Hyperglycemia Allergies No known active allergiesdocumented as of [...] times. If chest pain continues, call 911. 51 Tab 11 05/31/2020 Active Pantoprazole Sodium 40 [...] Gynecology Oncology Filemon Brown MD [address] [place] [address] 02/19/2023 Office Visit Cardiology Salbador Galvin CRNP [address] [place] [address] 02/20/2023 Office Visit Gynecology Obstetrics Nida Borden CRNP [address] [place] [address] 03/11/2023 Office Visit Hematology Oncology Crescencio Rosales MD [address] [place] [address] 03/20/2023 Office Visit Neurology Greer Davis PA-C [address] [place] [address] 04/29/2023 Office Visit Family Medicine Vanesa Solorzano, DO [address] [place] [address] 04/29/2023 Office Visit Gastroenterology Amberly Turner CRNP [address] [place] [address] Pending Results Name Type Priority Associated Diagnoses Date /Time HEMOGLOBIN A1C Lab Routine Hyperglycemia 02/18/2023 8:47 AM EDT Health Maintenance Due Date Last [...] Visit Diagnoses Diagnosis Hyperglycemia Other abnormal glucose documented in this encounter Care Teams Bullard Machine Operator Relationship Specialty Start Date End Date Vanesa Solorzano, DO [address] [place] [address] PCP - General Family Medicine 09/21/18 documented as of this encounter
--- OUTSIDE RECORDS SUMMARY | 2023-04-06 06:19 | External Medical Summary | Summary of Care ---
Author Name Unknown Organization [facility] Address [address] [place] [address] Phone [phone] Care Team Providers Care Biochemistry Specialist Name Role Phone MichaelVanesa borden Primary Care Provider [phone] Encounter Details Date Type Department Care Team Description 02/13/2023 Telephone Neurology [facility] [address] [facility] [address] [place] [address] Conchita Cabrera MD [address] [place] [address] Allergies No known active allergiesdocumented as of this encounter (statuses as of 02/13/2023) Medications Medication Sig Dispensed Refills Start Date [...] as of this encounter (statuses as of 02/13/2023) Active Problems Problem Noted Date Pancreatic cancer [...] as of this encounter (statuses as of 02/13/2023) Resolved Problems Problem Noted Date Resolved Date Obesity, morbid (more than 1 00 lbs over ideal weight or BMI > 40) 01/08/2010 04/08/2019 Overview: Per Obesity Protocol, #19 ICD-10 update of inactive term Dyslipidemia, goal LDL below 100 09/15/2014 Obesity 04/08/2019 Overview: Per Obesity protocol documented as of this encounter (statuses as of 02/13/2023) Immunizations Name Administration Dates Next Due COVID-19 [...] encounter Miscellaneous Notes * Telephone Encounter - Conchita Cabrera MD - 02/13/2023 4:41 PM EDT It was communicated to me that spar machine operator Dr Doty has no objection to patient restarting Eliquis. Patient's wanted to hear my opinion and wanted me to leave a message on his phone. I did so * Telephone Encounter - Conchita Cabrera MD - 02/13/2023 3:37 PM EDT Images from the original note were not included. Care team. Patient was in my office today felt she is having little more right left confusion. CT of the head Reading Physician Reading Date Result Priority David Benjamin MD [phone] 02/13/2023 Narrative & Impression EXAM HEAD CT WITHOUT CONTRAST, 02/13/2023 12:43 pm HISTORY hx of r parietal infarct, increased right left confusion. Pt was transiently on eliquis, not on antiplt agent COMPARISON None TECHNIQUE Multiple contiguous axial images were obtained through the head. Sagittal and coronal images were created for evaluation. FINDINGS Old infarct in right parietal lobe. There is patchy hypodensity in the left parietal lobe and occipital lobe which is suspicious for infarct of indeterminate age. There is patchy hypodensity in the medial high right parietal lobe which may represent infarct of indeterminate age. No hemorrhage. No do wnward herniation. Calvarium and orbits are normal IMPRESSION IMPRESSION 1. Patchy hypodensities in the left parietal lobe, occipital lobe and high right posteromedial parietal lobe represent infarcts of indeterminate age. No hemorrhage. MRI is recommended. 2. Hypodensity in the right parietal temporal region suspicious for a chronic infarct. I have compared the CT that the patient had today to her [address] and there is a right occipital and left occipital infarct that was not seen on CT however there were tiny areas of infarct on MRI in those general regions when she was hospitalized. These are certainly much more apparent than they had been and they are age indeterminate. Patient is unknown to me until today. Last week she had vaginal bleeding post biopsy for endometrial carcinoma after taking 1 day of Eliquis and required transfusion. This patient has an indication for anticoagulation which is atrial flutter. Additionally her carcinoma is likely a hypercoagulable state. The doctor's caring for her now were not responsible for her inpatient care. I have reached out to GI and spar machine operator. It sounds as if there is not a GI contraindication to anticoagulation issue more ispotential endometrial and vaginal bleeding. Patient is going to see Oncology and spar machine operator within the next several days. I discussed this with the patient's we discussed going to the hospital anticoagulating and monitoring for bleeding. We have settled on restarting aspirin monitoring for bleeding. He will discuss potential anticoagulation vis-a-vis its affect on bleeding when she is seen by spar machine operator. If she has new symptoms her will bring her to the hospital. He is very concerned about repeating his experienced last week were Eliquis was started and vaginal bleeding occurred requiring transfusion. documented in this encounter Plan of Treatment Upcoming Encounters Date Type Specialty Care Team Description 02/17/2023 Office Visit Hematology Oncology Crescencio Rosales MD [address] [place] [address] 02/18/2023 Office Visit Gynecology Oncology Filemon Borwn MD [address] [place] [address] 02/19/2023 Office Visit Cardiology Salbador Galvin CRNP [address] [place] [address] 02/20/2023 Office Visit Gynecology Obstetrics Nida Borden CRNP [address] [place] [address] 03/20/2023 Office Visit Neurology Greer Davis PA-C [address] [place] [address] 04/29/2023 Office Visit Family Medicine Vanesa Solorzano, [address] [address] 04/29/2023 Office Visit Gastroenterology Amberly Turner CRNP [address] [place] [address] Health Maintenance Due Date Last Done Comments [...] filedocumented as of this encounter Care Teams Biochemistry Specialist Relationship Specialty Start Date End Date Vanesa Solorzano, [address] [place] [address] PCP - General Family Medicine 09/21/18 documented as of this encounter
--- OUTSIDE RECORDS SUMMARY | 2023-04-06 06:19 | External Medical Summary | Summary of Care ---
Author Name Unknown Organization [facility] Address [address] [place] [address] Phone [phone] Care Team Providers Care Dewaterer Operator Name Role Phone Vanesa Solorzano Primary Care Provider Encounter Details Date Type Department Care Team Description 01/04/2023 Orders Only Hematology/Oncology [facility] [place] [address] [facility] [place] [address] Crescencio Rosales MD [address] [place] [address] Allergies No known active allergiesdocumented as of [...] times. If chest pain continues, call 911. Tab 11 05/31/2020 Active documented as of [...] mRNA, LNP-s, No Pre serve, 2-Dose Series ([employer]) 10/16/2020,09/25/2020 Seasonal Influenza, Quadriva lent, No Preserve, [...] Specialty Care Team Description 02/18/2023 Laboratory Laboratory [place], [facility] [address] [place] [address] 02/18/2023 Office Visit Gynecology Oncology Filemon Brown MD [address] [place] [address] 02/19/2023 Office Visit Cardiology Salbador Galvin CRNP [address] [place] [address] 02/20/2023 Office Visit Gynecology Obstetrics Nida Borden CRNP [address] [place] [address] 03/11/2023 Office Visit Hematology Oncology Crescencio Rosales MD [address] [place], [place] [address] 03/20/2023 Office Visit Neurology Greer Davis PA-C [address] [place] [address] 04/29/2023 Office Visit Family Medicine Vanesa Solorzano, DO [address] [place] [address] 04/29/2023 Office Visit [facility]ology [facility] [address] [facility] [address] Health Maintenance Due Date Last Done Comments [...] interpreted or resulted by a [facility] or [facility] radiologist. Crescencio Roslaes MD RAD MRI-MRA documented in this encounter Care Teams Dewaterer Operator Relationship Specialty Start Date End Date Vanesa Solorzano, DO [address] [place] [address] PCP - General Family Medicine 09/21/18 documented as of this encounter
--- OUTSIDE RECORDS SUMMARY | 2023-04-06 06:19 | External Medical Summary | Summary of Care ---
Author Name Unknown Organization [facility] Address [address] [place] [address] Phone [phone] Care Team Providers Care Title I Director Name Role Phone Vanesa Solorzano Primary Care Provider Encounter Details Date Type Department Care Team Description 02/16/2023 Orders Only Hematology/Oncology [facility] [place] [address] [place] [address] Crescencio Rosales MD [address] [place] [address] Malignant neoplasm of head of pancreas (HCC)* [...] times. If chest pain continues, call 911. 95 Tab 11 05/31/2020 Active Pantoprazole Sodium 40 [...] mRNA, LNP-s, No Pre serve, 2-Dose Series ([employer]) 10/16/2020,09/25/2020 Seasonal Influenza, Quadriva lent, No Preserve, [...] as of this encounter Miscellaneous Notes * Oncology Pathways Update - Crescencio Rosales MD - 02/16/2023 3:39 PM EDT START ON PATHWAY REGIMEN - Pancreatic Adenocarcinoma [id number]: mFOLFIRINOX q14 Days A cycle is every 14 days: Irinotecan (Camptosar) 150 mg/m IV once on day 1 Oxaliplatin (Eloxatin) 85 mg/m IV once on day 1 Leucovorin 400 mg/m IV once on day 1 Fluorouracil 1,200 mg/m/day CIV on days 1 and 2. Total dose = 2,400 mg/m over 46 hours. May continue chemotherapy until maximum response, disease progression, or toxicity. After at least four months of chemotherapy, may consider subsequent chemoradiation as appropriate, if remains locally-advanced and based on scans and multidisciplinary consultation for whether radiation therapy is feasible, desired, and to coordinate appropriate timing. Always confirm dose/schedule in your pharmacy ordering system Citations: -Kevin Wade, Eula P, Hermes Blake, et al. FOLFIRINOX or Gemcitabine as Adjuvant Therapy for Pancreatic Cancer. N Engl J Med. 2018;379(25):9924-6800. doi:10.1056/[id number] URL: https://www.ncbi.nlm.nih.gov/pubmed/52197928 -Ladarius Mcrae, Marcela Hanna, Jessie J, et al. Modified FOLFIRINOX regimen with improved safety and maintained efficacy in pancreatic adenocarcinoma. Pancreas. 2013;42(8):1311-5. URL: https://www.ncbi.nlm.nih.gov/pubmed/89923686 -Matias RM, Valdemar ES, Paul Y, et al. Final analysis of a phase II study of modified FOLFIRINOX in locally advanced and metastatic pancreatic cancer. Br J Cancer. 2016;114(7):737-743. doi:10.1038/bjc.2016.45 URL: https://www.ncbi.nlm.nih.gov/pubmed/11140886 Patient Characteristics: Locally Advanced, Anatomically Unresectable, M0, First Line, PS = 0,1, BRCA1/2 and PALB2 Mutation Absent/Unknown, Chemotherapy Therapeutic Status: Locally Advanced, Anatomically Unresectable, M0 Line of Therapy: First Line ECOG Performance Status: 1 BRCA1/2 Mutation Status: Awaiting Test Results PALB2 Mutation Status: Awaiting Test Results Intent of Therapy: Curative Intent, Discussed with Patient * Oncology Pathways Notification - Crescencio Rosales MD - 02/16/2023 3:39 PM EDT A new patient decision has been made in [facility]. Details of this patient have been provided below: Patient Information: Name: SpiveyJacque mensah : 1960 Provider Name: Crescencio Rosales Disease: Pancreatic Adenocarcinoma Pathway Followed: Pancreatic Adenocarcinoma, Locally Advanced, Anatomically Unresectable, M0, FirstLine, PS = 0,1, BRCA1/2 and PALB2 Mutation Absent/Unknown, Chemotherapy Patient Characteristics: Locally Advanced, Anatomically Unresectable, M0, First Line, PS = 0,1, BRCA1/2 and PALB2 Mutation Absent/Unknown, Chemotherapy Therapeutic Status: Locally Advanced, Anatomically Unresectable, M0 Line of Therapy: First Line ECOG Performance Status: 1 BRCA1/2 Mutation Status: Awaiting Test Results PALB2 Mutation Status: Awaiting Test Results Intent of Therapy: Curative Intent, Discussed with Patient Treatment Details: START ON PATHWAY REGIMEN [id number]: mFOLFIRINOX q14 Days A cycle is every 14 days: Irinotecan (Camptosar) 150 mg/m IV once on day 1 Oxaliplatin (Eloxatin) 85 mg/m IV once on day 1 Leucovorin 400 mg/m IV once on day 1 Fluorouracil 1,200 mg/m/day CIV on days 1 and 2. Total dose = 2,400 mg/m over 46 hours. May continue chemotherapy until maximum response, disease progression, or toxicity. After at least four months of chemotherapy, may consider subsequent chemoradiation as appropriate, if remains locally-advanced and based on scans and multidisciplinary consultation for whether radiation therapy is feasible, desired, and to coordinate appropriate timing. Always confirm dose/schedule in your pharmacy ordering system Citations: -Kevin T, Eula P, Hermes Blake, et al. FOLFIRINOX or Gemcitabine as Adjuvant Therapy for Pancreatic Cancer. N Engl J Med. 2018;379(25):4593-0076. doi:10.1056/[id number] URL: https://www.ncbi.nlm.nih.gov/pubmed/00413155 -Ladarius Mcrae, Marcela E, Jessie J, et al. Modified FOLFIRINOX regimen with improved safety and maintained efficacy in pancreatic adenocarcinoma. Pancreas. 2013;42(8):1311-5. URL: https://www.ncbi.nlm.nih.gov/pubmed/83915385 -Matias RM, Valdemar SERRANO, Palu Y, et al. Final analysis of a phase II study of modified FOLFIRINOX in locally advanced and metastatic pancreatic cancer. Br J Cancer. 2016;114(7):737-743. doi:10.1038/bjc.2016.45 URL: https://www.ncbi.nlm.nih.gov/pubmed/23661073 documented in this encounter Plan of Treatment Upcoming Encounters Date Type Specialty Care Team Description 02/17/2023 Office Visit Hematology Oncology Crescencio Rosales MD [address] [place] [address], [place] [address] 02/18/2023 Office Visit Gynecology Oncology Filemon Brown MD [address] [place] [address] 02/19/2023 Office Visit Cardiology Salbador Galvin CRNP [address] [place] [address] 02/20/2023 Office Visit Gynecology Obstetrics BackerNida CRNP [address] [facility] [place] [address] 03/20/2023 Office Visit Neurology Greer Davis PA-C [address] [place] [address] 04/29/2023 Office Visit Family Medicine Vanesa Solorzano, DO [address] [place] [address] 04/29/2023 Office Visit Gastroenterology Amberly Turner CRNP [address] [facility] [place] [address] Pending Results Name Type Priority Associated Diagnoses Date /Time ANATOMIC PATHOLOGY (BM/SURGICAL/CYTOLOGY) ADD ON REQUEST Lab Routine Malignant neoplasm of head of pancreas (HCC) 02/16/2023 3:44 PM EDT Health Maintenance Due Date Last [...] pancreas documented in this encounter Care Teams Title I Director Relationship Specialty Start Date End Date Vanesa Solorzano, [address] [place] [address] PCP - General Family Medicine 09/21/18 documented as of this encounter
--- OUTSIDE RECORDS SUMMARY | 2023-04-06 06:19 | External Medical Summary ---
Author Name Unknown Address Unknown Organization [facility] - [address] [place] [address] Laboratory Report Ordering Provider Test Date Status TINA JAIME 02/18/2023 08:47:56 Final Observation Date Value Abnormality Reference (Units ) Status HbA1C 02/18/2023 08:47:56 6.3 Above high normal 4. 0-5.6 (%) Final Performing Location [facility] - [address] [place] [address]
--- OUTSIDE RECORDS SUMMARY | 2023-04-06 06:19 | External Medical Summary | Summary of Care ---
Author Name Unknown Organization [facility] Address [address] [place] [address] Phone [phone] Care Team Providers Care Electrical Machine Builder Name Role Phone Vanesa Solorzano Primary Care Provider [phone] Reason for Visit * Reason Onset Date Comments Outpatient Testing 02/20/2023 NGS Encounter Details Date Type Department Care Team Description 02/20/2023 Telephone Hematology/Oncology Treatment, [place] 200 [facility] [place] [address] Crescencio Rosales MD 200 [facility] [place] [address] Outpatient Testing (NGS) Allergies No known active allergiesdocumented as of [...] times. If chest pain continues, call 911. 05 Tab 11 05/31/2020 Active Pantoprazole Sodium 40 [...] mRNA, LNP-s, No Pre serve, 2-Dose Series ([employer]) 10/16/2020,09/25/2020 Seasonal Influenza, Quadriva lent, No Preserve, [...] Telephone Encounter - Ayana Carr RN - 02/20/2023 1:[address] Rosales would like MyGenvar added to [id number] collected 02/06/23 at [facility]. He already placed order. Faxed request to send specimen to [facility], staff message sent to [facility] pathology. documented in this encounter Plan of Treatment Upcoming Encounters Date Type Specialty Care Team Description 02/24/2023 Telemedicine General Surgery Александр Steiner MD [address] [place] [address] 03/11/2023 Office Visit Hematology Oncology Crescencio Rosales MD [address] [place] [address] 03/20/2023 Office Visit Neurology Grere Davis PA-C [address] [facility] [place] [address] 03/25/2023 Office Visit Palliative Medicine Mercedes Aranda MD [address] [facility] [place] [address] 04/29/2023 Office Visit Family Medicine Vanesa Solorzano, DO [address] [place] [address] 04/29/2023 Office Visit Gastroenterology Amberly Turner, [place] [address] [place] [address] 05/26/2023 Office Visit Gynecology Oncology [facility]C [address] [facility] [address] Health Maintenance Due Date Last Done Comments [...] filedocumented as of this encounter Care Teams Electrical Machine Builder Relationship Specialty Start Date End Date Vanesa Solorzano, [address] [place] [address] PCP - General Family Medicine 09/21/18 documented as of this encounter
--- OUTSIDE RECORDS SUMMARY | 2023-04-06 06:20 | External Medical Summary | Summary of Care ---
Author Name Unknown Organization [facility] Address [address] [place] [address] Phone [phone] Care Team Providers Care Employment Adjudicator Name Role Phone JasperVanesa noble Tracee HARRIS Primary Care Provider [phone] Reason for Referral * Evaluate & Treat - Unlimited Visits (Within 3 days (urgent)) - Pending Review Specialty Diagnoses / Procedures Referred By Todd t Referred To Contact Gastroenterology Diagnoses Mass of pancreas Estrada Haro MD [address] [place] [address] Referral ID Status Reason Start Date Expiration Date Visits Requested Visits Authorized [id number] Pending Review Specialty Services Required 02/12/[phone] Question Answer Referral Priority Within 3 days (urgent) For what condition is the patient being referred? All Gastro Conditions Comments Pancreas mass * Evaluate & Treat - Unlimited Visits (Within 3 days (urgent)) - Pending Review Specialty Diagnoses / Procedures Referred By Contjanessa t Referred To Contact Gynecologic Oncology / Gynecology Oncology Diagnoses Endometrial cancer (HCC) Estrada Haro MD [address] [place] [address] Referral ID Status Reason Start Date Expiration Date Visits Requested Visits Authorized [id number] Pending Review Specialty Services Required 02/12/[phone] Question Answer Referral Priority Within 3 days (urgent) Reason for Visit * Reason Comments Hospital Follow-Up Excessive bleeding Encounter Details Date Type Department Care Team Description 02/12/2023 Office Visit Merged With [facility] [address] [place] [facility] [place] [address] Estrada Haro MD [address] [place] [address] Abnormal vaginal bleeding*; Endometrial cancer (HCC); Obesity, morbid, BMI 40.0-49.9 (HCC); Acute CVA (cerebrovascular accident) (HCC); Acute left hemiparesis (HCC); Mass of pancreas; Paroxysmal atrial flutter (HCC); SVT (supraventricular tachycardia) (HCC); Iron deficiency anemia, unspecified iron deficiency anemia type; Thrombocytopenia (HCC) Allergies No known active allergiesdocumented as of this encounter (statuses as of 02/12/2023) Medications Medication Sig Dispensed Refills Start Date [...] as of this encounter (statuses as of 02/12/2023) Active Problems Problem Noted Date Endometrial cancer 02/04/2023 Acute CVA (cerebrovascular accident) 09/2022 Anxiety 01/26/2023 Elevated troponin 01/26/2023 Genetic carrier status 01/26/2023 Intermittent abdominal pain 01/26/2023 Mass of pancreas 01/26/2023 Paroxysmal atrial flutter 01/26/2023 SVT (supraventricular tachycardia) 01/26 Weakness 01/26/2023 Acute left hemiparesis 01/26/2023 Obesity, morbid, BMI 40.0-49.9 9 Overview: Per Obesity protocol documented as of this encounter (statuses as of 02/12/2023) Resolved Problems Problem Noted Date Resolved Date Obesity, morbid (more than 1 00 lbs over ideal weight or BMI > 40) 01/08/2010 04/08/2019 Overview: Per Obesity Protocol, #19 ICD-10 update of inactive term Dyslipidemia, goal LDL below 100 09/15/2014 Obesity 04/08/2019 Overview: Per Obesity protocol documented as of this encounter (statuses as of 02/12/2023) Immunizations Name Administration Dates Next Due COVID-19 mRNA, LNP-s, No Pre serve, 2-Dose Series (Innovis) 10/16/2020,09/25/2020 Seasonal Influenza, Quadriva lent, No Preserve, [...] Sign Reading Time Taken Comments Blood Pressure 80/56 02/12/2023 8:58 AM EDT Pulse 61 02/12/2023 8:58 AM EDT Temperature 37.2 C (99 F) 02/12/2023 8:58 AM EDT Respiratory Rate 16 02/12/2023 8:58 AM EDT Oxygen Saturation 96% 02/12/2023 8:58 AM EDT Inhaled Oxygen Concentration - - Weight - - Height 162.6 cm (5' 4") 02/12/2023 8:58 AM EDT Body Mass Index - - documented in this encounter Progress Notes * Estrada Haro MD - 02/12/2023 9:19 AM EDT Subjective Jacque Spivey is a 62 year old adult. Chief Complaint Patient presents with Hospital Follow-Up Excessive bleeding HPI: Here for hospital f/u Admission : Feb 03 Discharge : Feb 09 Dx : excessive vaginal bleeding, recent diagnosis with uterine cancer, s/p pancreatic mass biopsy, recent stroke in dec , on eliquis Recently diagnosed with stroke, lt sided hemiparesis last month , getting PT/OT which has helped - f/u with neuro tmrw Was on eliquis And also had biopsy of uterus lesion which came out endometrial ca After biopsy , she started excessive vaginal bleeding, went to ER With further work up , found to have anemia with thrombocytopenia, pancreatic mass S/p ERCP, biopsy still pending of today ( through [facility] medical record) Pt seems exhausted, anxious, crying Currently eliquis on hold , currently no vaginal or GI bleeding Feels weak, c/o abd distension feeling Has lost more aboutn 40 pounds since last year BP low - encouraged water and oral intake SVT in hospital - currently stable, most likely due to bleeding , volume depletion Depending on pancreatic mass biopsy result, further plan will be decided Discussed about it with pt and PMH: Patient Active Problem List Diagnosis Code Obesity, morbid, BMI 40.0-49.9 ([facility]) E66.01 Acute CVA (cerebrovascular accident) ([facility]) I63.9 Anxiety F41.9 Elevated troponin R77.8 Genetic carrier status Z14.8 Intermittent abdominal pain R10.9 Mass of pancreas K86.89 Paroxysmal atrial flutter (HCC) I48.92 SVT (supraventricular tachycardia) ([facility]) I47.1 Weakness R53.1 Acute left hemiparesis (HCC) G81.94 Endometrial cancer (HCC) C54.1 Current Outpatient Medications Medication Sig Dispense Refill TYLENOL 325 MG PO TABS uses as needed Nitroglycerin 0.3 MG Sublingual Tablet Sublingual (NITROSTAT) Place 1 Tab under the tongue as needed for Pain, Chest. May repeat 3 times. If chest pain continues, call 911. 69 Tab 11 Pantoprazole Sodium 40 MG Oral [...] No current facility-administered medications for this visit. Past Medical History: Diagnosis Date Acute CVA (cerebrovascular accident) (HCC) 01/26/2023 Acute left hemiparesis (HCC) 01/26/2023 Anxiety 01/26/2023 Dyslipidemia, goal LDL below 130 Endometrial carcinoma (HCC) 02/04/2023 Gestational hypertension Mass of pancreas 01/26/2023 Obesity, morbid, BMI 40.0-49.9 ([facility]) 04/04/2019 Per Obesity protocol Other screening mammogram 03/10/2005 wnl per [facility] at Paroxysmal atrial flutter (HCC) 01/26/2023 SVT (supraventricular tachycardia) ([facility]) 01/26/2023 Past Surgical History: Procedure Laterality Date COLONOSCOPY, DIAGNOSTIC (RECTUM) 11/15/2013 perianal and digital rectal exam normal, severe stenosis found at 35 cm proximal to the anus and was non-transversed, stricture at 35 cm in colon, CT scan abd/pelvis/COLONOSCOPY FLEXIBLE PROXIMAL DIAGNOSTIC performed by You Gregory MD at ENDOSCOPY [facility] COLONOSCOPY, DIAGNOSTIC (RECTUM) 03/09/2014 COLONOSCOPY FLEXIBLE PROXIMAL DIAGNOSTIC performed [place] Susu Whittington [place] [facility]/CUT OVIDUCT(S) MAMMOGRAM - 1 BREAST 02/13/04 [facility]nl per [facility]-see scan MAMMOGRAM - 1 BREAST 08/26/04 [facility] per [facility] MAMMOGRAM - BILATERAL 03/14/08 [facility] MAMMOGRAM SCREENING BILATERAL 05/07/09 wnl- REMOVAL OF APPENDIX 1976 Review of patient's allergies indicates: No Known Allergies Family History Problem Relation Age of Onset Prostate cancer Father Stroke Brother Heart attack Brother Breast Cancer Grandmother (Paternal) Family Status Relation Status Mo Alive Fa at age 68 Bro (Not Specified) Bro (Not Specified) PGMA Social History Socioeconomic History Marital status: Spouse name: You Number of children: 2 Years of education: Not on file Highest education level: Not on file Occupational History Occupation: [employer] Employer: [employer] Comment: [employer] Occupation: [employer] Comment: 2009 Tobacco Use Smoking status: Never Smokeless tobacco: Never Substance and Sexual Activity Alcohol use: Yes Comment: Occasionally Drug use: No Sexual activity: Yes Partners: Male control/protection: Surgical Comment: BTL Other Topics Concern Not on file Social History Narrative Working at [employer]. Son George, and living with her. And [...] on file Housing Stability: Not on file Review of Systems Constitutional: Positive for activity change, fatigue and unexpected weight change (weigth loss, more than 30 pounds last 6 mo ). Negative for appetite change, chills, diaphoresis and fever. HENT: Negative for hearing loss and sore throat. Eyes: Negative for visual disturbance. Respiratory: Negative for cough, chest tightness, shortness of breath and wheezing. Cardiovascular: Positive for leg swelling. Negative for chest pain and palpitations. Gastrointestinal: Positive for abdominal distention and abdominal pain (comes and goes). Negative for anal bleeding, blood in stool, constipation, diarrhea, nausea and vomiting. Endocrine: Negative. Genitourinary: Negative for dysuria, menstrual problem, vaginal discharge and vaginal pain. Musculoskeletal: Positive for gait problem. Skin: Negative for color change. Allergic/Immunologic: Positive for immunocompromised state. Neurological: Positive for dizziness, weakness (slightly lt sided ) and light- headedness. Negative for facial asymmetry and speech difficulty. Cant process instruction for B/L movements Hematological: Bruises/bleeds easily. Psychiatric/Behavioral: Positive for dysphoric mood and sleep disturbance. Negative for agitation and behavioral problems. The patient is nervous/anxious. Objective BP 80/56 (BP Site: Left Arm, BP Position: Sitting, BP Cuff Size: Regular) | Pulse 61 | Temp 37.2 C (99 F) (Temporal Artery) | Resp 16 | Ht 1.626 m (5' 4") | SpO2 96% | BMI 43.70 kg/m | BSA 2.28m Physical Exam Constitutional: General: Jacque Spivey is in acute distress. Appearance: Normal appearance. Jacque Spivey is obese. Jacque Spivey is ill- appearing. Jacque Spivey is not toxic-appearing or diaphoretic. HENT: Head: Normocephalic and atraumatic. Nose: Nose normal. Eyes: Extraocular Movements: Extraocular movements intact. Conjunctiva/sclera: Conjunctivae normal. Pupils: Pupils are equal, round, and reactive to light. Cardiovascular: Rate and Rhythm: Normal rate and regular rhythm. Pulses: Normal pulses. Heart sounds: Normal heart sounds. Pulmonary: Effort: Pulmonary effort is normal. No respiratory distress. Breath sounds: Normal breath sounds. No stridor. No wheezing, rhonchi or rales. Chest: Chest wall: No tenderness. Abdominal: Palpations: Abdomen is soft. Tenderness: There is no abdominal tenderness. There is no guarding or rebound. Musculoskeletal: Cervical back: Normal range of motion. Right lower leg: No edema. Left lower leg: No edema. Lymphadenopathy: Cervical: No cervical adenopathy. Skin: Findings: No erythema. Neurological: General: No focal deficit present. Mental Status: Jacque Spivey is alert and oriented to person, place, and time. Cranial Nerves: No cranial nerve deficit. Psychiatric: Behavior: Behavior normal. Comments: Anxiety ASSESSMENT/PLAN: Abnormal vaginal bleeding (Primary) - CBC WITH WBC DIFFERENTIAL AND ANEMIA REFLEX WORKUP; Future; Expected date: 02/12/2023 - COMPREHENSIVE METABOLIC PANEL; Future; Expected date: 02/12/2023 Endometrial cancer (HCC) - CBC WITH WBC DIFFERENTIAL AND ANEMIA REFLEX WORKUP; Future; Expected date: 02/12/2023 - COMPREHENSIVE METABOLIC PANEL; Future; Expected date: 02/12/2023 - [facility] REFERRAL OP Obesity, morbid, BMI 40.0-49.9 (HCC) Acute CVA (cerebrovascular accident) (HCC) - CBC WITH WBC DIFFERENTIAL AND ANEMIA REFLEX WORKUP; Future; Expected date: 02/12/2023 - COMPREHENSIVE METABOLIC PANEL; Future; Expected date: 02/12/2023 Acute left hemiparesis (HCC) - COMPREHENSIVE METABOLIC PANEL; Future; Expected date: 02/12/2023 Mass of pancreas - CBC WITH WBC DIFFERENTIAL AND ANEMIA REFLEX WORKUP; Future; Expected date: 02/12/2023 - COMPREHENSIVE METABOLIC PANEL; Future; Expected date: 02/12/2023 - GASTROENTEROLOGY REFERRAL OP Paroxysmal atrial flutter (HCC) SVT (supraventricular tachycardia) (HCC) Iron deficiency anemia, unspecified iron deficiency anemia type - CBC WITH WBC DIFFERENTIAL AND ANEMIA REFLEX WORKUP; Future; Expected date: 02/12/2023 - COMPREHENSIVE METABOLIC PANEL; Future; Expected date: 02/12/2023 Thrombocytopenia (HCC) - CBC WITH WBC DIFFERENTIAL AND ANEMIA REFLEX WORKUP; Future; Expected date: 02/12/2023 - COMPREHENSIVE METABOLIC PANEL; Future; Expected date: 02/12/2023 Check-out note: Urgent referral to [facility]/Onc and GI F/u blood tests Fu with oncology [facility] and GI F/u pancreas mass biopsy Estrada Haro MD documented in this encounter Nursing Notes * JONNY Martel - 02/12/2023 8:58 AM EDT Jacque Spivey is a 62 year old adult who presents today for Chief Complaint Patient presents with Hospital Follow-Up Excessive bleeding documented in this encounter Plan of Treatment Upcoming Encounters Date Type Specialty Care Team Description 02/13/2023 Office Visit Neurology Conchita Cabrera MD [address] [place] [address] 02/18/2023 Office Visit Gynecology Oncology Filemon Brown MD [address], [place] [id number] 02/19/2023 Office Visit Cardiology Salbador Galvin CRNP [address] [place] [address] 04/29/2023 Office Visit Family Medicine Vanesa Solorzano, DO [address] [place] [address] 04/29/2023 Office Visit Gastroenterology Amberly Turner CRNP [address] [place] [address] Pending Results Name Type Priority Associated Diagnoses Date /Time CBC WITH WBC DIFFERENTIAL AND ANEMIA REFLEX WORKUP Lab Routine Endometrial cancer (HCC) Acute CVA (cerebrovascular accident) (HCC) Mass of pancreas Iron deficiency anemia, unspecified iron deficiency anemia type Thrombocytopenia (HCC) Abnormal vaginal bleeding 02/12/2023 9:59 AM EDT COMPREHENSIVE METABOLIC PANEL Lab Routine Endometrial cancer (HCC) Acute CVA (cerebrovascular accident) (HCC) Acute left hemiparesis (HCC) Mass of pancreas Iron deficiency anemia, unspecified iron deficiency anemia type Thrombocytopenia (HCC) Abnormal vaginal bleeding 02/12/2023 9:59 AM EDT Scheduled Orders Name Type Priority Associated Diagnoses Orde r Schedule CBC WITH WBC DIFFERENTIAL AND ANEMIA REFLEX WORKUP Lab Routine Endometrial cancer (HCC) Acute CVA (cerebrovascular accident) (HCC) Mass of pancreas Iron deficiency anemia, unspecified iron deficiency anemia type Thrombocytopenia (HCC) Abnormal vaginal bleeding Expected: 02/12/2023 (Approximate), Expires: 02/13/2024 COMPREHENSIVE METABOLIC PANEL Lab Routine Endometrial cancer (HCC) Acute CVA (cerebrovascular accident) (HCC) Acute left hemiparesis (HCC) Mass of pancreas Iron deficiency anemia, unspecified iron deficiency anemia type Thrombocytopenia (HCC) Abnormal vaginal bleeding Expected: 02/12/2023 (Approximate), Expires: 02/12/2024 Scheduled Referrals Name Type Priority Associated Diagnoses Order Schedule [facility] REFERRAL OP Referral Within 3 day s (urgent) Endometrial cancer (HCC) Ordered: 02/12/2023 GASTROENTEROLOGY REFERRAL OP Referral Within 3 days (urgent) Mass of pancreas Ordered: 02/12/2023 Health Maintenance Due Date Last [...] exists Colorectal Cancer Screening 03/09/2024 Diabetes Screening 01/16/2026 01/16/2023, 0 01/09/2023, 05/31/2020, Additional history exists Pap Smear 01/31/2028 01/30/2023, [...] as of this encounter Visit Diagnoses Diagnosis Abnormal vaginal bleeding- Primary Other specified noninflammatory disorder of vagina Endometrial cancer (HCC) Malignant neoplasm of corpus uteri, except isthmus Obesity, morbid, BMI 40.0-49.9 (HCC) Morbid obesity Acute CVA (cerebrovascular accident) (HCC) Acute left hemiparesis (HCC) Hemiplegia, unspecified, affecting unspecified side Mass of pancreas Unspecified disease of pancreas Paroxysmal atrial flutter (HCC) Atrial flutter SVT (supraventricular tachycardia) (HCC) Other specified cardiac dysrhythmias Iron deficiency anemia, unspecified iron deficiency anemia type Thrombocytopenia (HCC) Thrombocytopenia, unspecified documented in this encounter Care Teams Employment Adjudicator Relationship Specialty Start Date End Date Vanesa Solorzano, [address] [place] [address] PCP - General Family Medicine 09/21/18 documented as of this encounter
--- OUTSIDE RECORDS SUMMARY | 2023-04-06 06:20 | External Medical Summary | Summary of Care ---
Author Name Unknown Organization [facility] Address [address] [place] [address] Phone [phone] Care Team Providers Care Fishing Captain Name Role Phone MichaelVanesa borden Primary Care Provider Reason for Referral * Evaluate & Treat - Unlimited Visits (Within 10 days (routine)) - Pending Review Specialty Diagnoses / Procedures Referred By Todd young Referred To Contact SURGICAL ONCOLOGY / Surgical Oncology Diagnoses Malignant neoplasm of head of pancreas (HCC) Odilia Ring DO [address] [place] [address] Referral ID Status Reason Start Date Expiration Date Visits Requested Visits Authorized [id number] Pending Review Specialty Services Required 02/13/2023 999 999 Question Answer Referral Priority Within 10 days (routine) Comments History of a 45 mm pancreatic head mass, FNA consistent with adenocarcinoma, patient has an unlikely surgical 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 * Evaluate & Treat - Unlimited Visits (Within 10 days (routine)) - Pending Review Specialty Diagnoses / Procedures [facility] Referred To Contact Hematology/Oncology / Hematology Oncology Diagnoses Malignant neoplasm of head of pancreas (HCC) Odilia Ring DO [address] [place] [address] Referral ID Status Reason Start Date Expiration Date Visits Requested Visits Authorized [id number] Pending Review Specialty Services Required 02/13/2023 999 [id number] Question Answer Referral Priority Within 10 days (routine) Reason for Referral Malignant Oncology (Solid Organ Cancer) Comments Patient with a recently diagnosed pancreatic cancer, unlikely surgical candidate given size of mass. Reason for Visit * Reason Onset Date Comments Test Results Biopsy 02/13/2023 Encounter Details Date Type Department Care Team Description 02/13/2023 Telephone Gastroenterology, [facility] [address] [place] [address] Odilia Ring DO [address] [place] [address] Test Results Biopsy Allergies No known active allergiesdocumented as of [...] mRNA, LNP-s, No Pre serve, 2-Dose Series ([employer]) 10/16/2020,09/25/2020 Seasonal Influenza, Quadriva lent, No Preserve, [...] Miscellaneous Notes * Telephone Encounter - ROMANA Ordaz - 02/13/2023 1:34 PM EDT Please reach out to the patient to schedule Thank you * Telephone Encounter - Odilia Ring DO - 02/13/2023 12:17 PM EDT I was able to contact the patient and her with her pathology results from last week. Unfortunately it does appear that she has a pancreatic adenocarcinoma in addition to the mass that is arising from her uterus. Unfortunately the mass in her pancreas is quite large measuring 43 mm in greates t dimension and abuts the portal vein. At the present time she is not likely a surgical candidate from the perspective her pancreatic malignancy. Recommendations 1) Oncology referral 2) Surgical oncology referral EUS results (T3N1Mx) There was dilation in the common bile duct which measured up to 9 mm. There was a suggestion of a stricture in the lower third of the main bile duct as it coursed through the patient's pancreatic head mass. There was modest dilation in the gallbladder which measured up to 35 mm. Multiple stones were visualized endosonographically in the gallbladder. They were hyperechoic and characterized by shadowing. An oval mass was identified in the pancreatic head. The mass was hypoechoic. The mass measured 45 mm by 35 mm in maximal cross-sectional diameter. [...] the 25 gauge needle using a transduodenal approach. A stylet was used. A power distribution engineer was present and performed a preliminary cytologic examination. Final cytology results are pending. One enlarged lymph node was visualized in the paradise hepatis region. It measured 6 mm by 5 mm in maximal cross-sectional diameter. The node was oval, hypoechoic and had well defined margins. 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 - Please see microscopic description. Screened by on at . at 1630. Clinical History History of uterine cancer, large pancreatic head mass with evidence of biliary obstruction. Tissues A. Pancreas Cyto.NG - MASS Gross Description 2 PAP,1CB Rapid Onsite evaluations were performed using the Realtime Telepathology system by Dr. Lucas and Hal OCAMPO([facility]). Total episode or site evaluations: 1 Pass# Time Diagnosis 1. 1220 Malignant cells seen. 2. 1222 No read Microscopic Description Fine-needle aspiration (x 2) of a mass of the head of the pancreas is performed by Dr. Odilia Ring. This aspirate is initially evaluated with toluidine blue as a direct smear and malignant cells are seen. The direct smear was then stained with the Papanicolaou's stain and residual cells were prepared as a cellblock. After examining the cellblock, multiple immunohistochemical stains were obtained. The direct smear from pass #2 simply reveals blood. The direct smear from pass #1 reveals tumor cellularity. This direct smear reveals benign glandular epithelium and a second population of cells. The second population of cells are arranged in flat sheets, three-dimensional aggregates, and singly. These cells reveal nucleomegaly, anisonucleosis, increased nuclear to cytoplasmic ratios, and overlapping nuclei. Nuclear hyperchromasia is seen. The cellblock contains the benign glandular epithelium and the malignant cells. On this slide the nuclei are irregularly distributed and the cells reveal nucleomegaly and nuclear hyperchromasia. Enlarged nucleoli are seen. Internal and external controls cells are appropriately positive for the immunohistochemical stains in this case. The immunohistochemical stain for Ki-67 highlights approximately 50% of the malignant cells and spares the benign cells entirely. Immunohistochemical stains for the estrogen receptor and the progesterone receptor fail to highlight the malignant cells militating against metastatic adenocarcinoma of the endometrium in terms of primary endometrioid adenocarcinoma. The immunohistochemical stain for CK7 diffusely highlights the malignant cells and the immunohistochemical stain for CK20 very focally highlights the malignant cells. Please note that endometrioid endometrial adenocarcinoma is characteristically CK20 negative. The immunohistochemical stain for p53 reveals a wild-type expression. Finally, the immunohistochemical stain for DPC4 confirms the loss of this antigen by the malignant cells. Thus, this is apancreatic ductal adenocarcinoma. Please note that this case is reviewed by one of my colleagues inthe department of pathology and my colleague agrees with the rendered diagnosis. Immunohistochem Methodology Immunohistochemical stains are performed at [facility] on a Quid automated system with performance determined by the [facility] Laboratory. Some stains may be performed by other laboratories ([facility] or [facility]) with development and performance characteristics determined by that laboratory. When necessary, on- line positive controls are reviewed at that particular laboratory. These tests have not been cleared or approved for specific use by the U.S. Food and Drug Administration. The FDA has determined that such approval is not necessary. The test is used for clinical purposes. It should not be regarded as investigational or for research. This laboratory is certified under CLIA 1988 as qualifiedto perform high complexity testing. Immunohistochemistry may be performed in conjunction with flow cytometry for complete evaluation ofa case. Immunohistochemistry provides a useful assessment of the distribution of cells throughout the specimen which is not evaluated by flow cytometry. In addition, some immunohistochemical stains are not evaluated by flow cytometry (i.e. BCL2, Ki-67). Immunohistochemistry performed on decalcifiedspecimens is done with antigen retrieval which has been internally validated in the [facility] laboratory. Immunocytochemistry may be performed on alcohol fixed smears, cytospins or Thin Prep slides. Immunocytochemistry on all of these types of slides has been internally validated in the [facility] laboratory. documented in this encounter Plan of Treatment Upcoming Encounters Date Type Specialty Care Team Description 02/18/2023 Office Visit Gynecology Oncology Filemon Brown MD [address] [place] [address] 02/19/2023 Office Visit Cardiology Salbador Galvin CRNP [address] [place] [address] 03/20/2023 Office Visit Neurology Greer Davis PA-C [address] [place] [address] 04/29/2023 Office Visit Family Medicine Vanesa Solorzano, DO [address] [place] [address] 04/29/2023 Office Visit Gastroenterology Amberly Turner CRNP [address] [place] [address] Scheduled Referrals Name Type Priority Associated Diagnoses Orde r Schedule HEMATOLOGY/ONCOLOGY REFERRAL OP Referral Within 10 days (routine) Malignant neoplasm of head of pancreas (HCC) Ordered: 02/13/2023 SURGICAL ONCOLOGY REFERRAL OP Referral Within 10 [...] pancreas documented in this encounter Care Teams Fishing Captain Relationship Specialty Start Date End Date Vanesa Solorzano, [address] [place] [address] PCP - General Family Medicine 09/21/18 documented as of this encounter
--- OUTSIDE RECORDS SUMMARY | 2023-04-06 06:20 | External Medical Summary | Summary of Care ---
Author Name Unknown Organization [facility] Address [address] [place] [address] Phone [phone] Care Team Providers Care Military Cook Name Role Phone MichaelVanesa borden Primary Care Provider Encounter Details Date Type Department Care Team Description 02/13/2023 Telephone Neurology [facility] [address] [place] [address] Conchita Cabrera MD [address] [place] [address] Allergies No known active allergiesdocumented as of [...] mRNA, LNP-s, No Pre serve, 2-Dose Series ([employer]) 10/16/2020,09/25/2020 Seasonal Influenza, Quadriva lent, No Preserve, [...] Reading Date Result Priority David Benjamin MD [phone] 02/13/2023 Narrative & Impression EXAM HEAD CT [...] I have reached out to GI and entertainment reporter. It sounds as if there is not a GI contraindication to anticoagulation issue more ispotential endometrial and vaginal bleeding. Patient is going to see Oncology and entertainment reporter within the next several days. I discussed this with the patient's we discussed going to the hospital anticoagulating and monitoring for bleeding. We have settled on restarting aspirin monitoring for bleeding. He will discuss potential anticoagulation vis-a-vis its affect on bleeding when she is seen by entertainment reporter. If she has new symptoms her will bring her to the hospital. He is very concerned about repeating his experienced last week were Eliquis was started and vaginal bleeding occurred requiring transfusion. documented in this encounter Plan of Treatment Upcoming Encounters Date Type Specialty Care Team Description 02/17/2023 Office Visit Hematology Oncology Crescencio Rosales MD [address] [place] [address] 02/18/2023 Office Visit Gynecology Oncology Filemon Brown MD [address] [place] [address] 02/19/2023 Office Visit Cardiology Salbador Galvin CRNP [address] [place] [address] 02/20/2023 Office Visit Gynecology Obstetrics BackerNida CRNP [address] [place] [address] 03/20/2023 Office Visit Neurology Greer Davis PA-C [address] [place] [address] 04/29/2023 Office Visit Family Medicine Vanesa Solorzano DO [address] [place] [address] 04/29/2023 Office Visit Gastroenterology Amberly Turner CRNP [address] [place] [address] Health Maintenance Due Date Last Done Comments [...] filedocumented as of this encounter Care Teams Military Cook Relationship Specialty Start Date End Date Vanesa Solorzano, [address] [place] [address] PCP - General Family Medicine 09/21/18 documented as of this encounter
--- OUTSIDE RECORDS SUMMARY | 2023-04-06 06:20 | External Medical Summary | Summary of Care ---
Author Name Unknown Organization [facility] Address [address] [place] [address] Phone [phone] Care Team Providers Care Retail Wireless Sales Representative Name Role Phone Vanesa Solorzano DO Primary Care Provider Encounter Details Date Type Department Care Team Description 02/05/2023 Result Scan Unspecified Department Jem Solorzano DO [address] [place] [address] <No scans attached> Allergies No known active allergiesdocumented as of [...] Office Visit Neurology Conchita Cabrera MD [address] [place] [address] 02/18/2023 Office Visit Gynecology Oncology Filemon Brown MD [address] [place] [address] 02/19/2023 Office Visit Cardiology Salbador Galvin CRNP [address] [place], [place] [id number] 04/29/2023 Office Visit Family Medicine Vanesa Solorzano DO [address] [place] [address] 04/29/2023 Office Visit Gastroenterology Amberly Turner CRNP [address] [facility] [place] [address] Health Maintenance Due Date Last Done Comments [...] Procedure Name Priority Date/Time Associated Diagnosis Comments ECHOCARDIOLOGY SCANNED RESULT 02/05/2023 documented in this encounter Results * ECHOCARDIOLOGY SCANNED RESULT (02/05/2023) 02/05/2023 Jem Solorzano DO ECHOCARDIOLOGY documented in this encounter Care Teams Retail Wireless Sales Representative Relationship Specialty Start Date End Date Vanesa Solorzano DO [address] [place] [address] PCP - General Family Medicine 09/21/18 documented as of this encounter
--- OUTSIDE RECORDS SUMMARY | 2023-04-06 06:20 | External Medical Summary | Summary of Care ---
Author Name Unknown Organization [facility] Address [address] [place] [address] Phone [phone] Care Team Providers Care Practice Director Name Role Phone Michaelmichi Vanesa Easley Primary Care Provider Encounter Details Date Type Department Care Team Description 02/06/2023 Result Scan Unspecified Department Odilia Ring DO [address] [place] [address] <No scans attached> Allergies No known active [...] of 02/13/2023) Active Problems Problem Noted Date Endometrial cancer [...] mRNA, LNP-s, No Pre serve, 2-Dose Series (Proacta) 10/16/2020,09/25/2020 Seasonal Influenza, Quadriva lent, No Preserve, [...] Date Type Specialty Care Team Description 02/13/2023 Imaging Radiology 02/18/2023 Office Visit Gynecology Oncology Filemon Brown MD [address] [place] [address] 02/19/2023 Office Visit Cardiology Salbador Galvin CRNP [address] [place], [place] [id number] 03/20/2023 Office Visit Neurology Greer Davis PA-C [address] [facility] [place] [address] 04/29/2023 Office Visit Family Medicine Vanesa Solorzano, [address] [place] [address] 04/29/2023 Office Visit Gastroenterology Amberly Turner CRNP [address] [facility] [address] Health Maintenance Due Date Last Done Comments [...] Procedure Name Priority Date/Time Associated Diagnosis Comments PATHOLOGY SCANNED RESULT 02/06/2023 documented in this encounter Results * PATHOLOGY SCANNED RESULT (02/06/2023) 02/06/2023 Odilia Ring DO PATHOLOGY documented in this encounter Care Teams Practice Director Relationship Specialty Start Date End Date Vanesa Solorzano DO [address] [place] [address] PCP - General Family Medicine 09/21/18 documented as of this encounter
--- OUTSIDE RECORDS SUMMARY | 2023-04-06 06:20 | External Medical Summary | Summary of Care ---
Author Name Unknown Organization [facility] Address [address] [place] [address] Phone [phone] Care Team Providers Care Registrar Assistant Name Role Phone Vanesa Solorzano Primary Care Provider Reason for Visit * Reason Onset Date Comments Hospital Follow-Up 02/10/2023 PETEY Encounter Details Date Type Department Care Team Description 02/10/2023 Telephone [place] [address] [place] [address] Maria De Jesus Landon, MANJEET Hospital Follow-Up (PETEY) Allergies No known active allergiesdocumented as of this encounter (statuses as of 02/10/2023) Medications Medication Sig Dispensed Refills Start Date [...] by mouth in the morning. 0 Active Aspirin 81 MG Oral Tablet Delayed Release 1 Tablet. 0 01/08/2023 Active Losartan Potassium 50 MG Oral Tablet (Cozaar) Take 1 Tablet by mouth in the morning and 1 Tablet before bedtime. 0 01/20/2023 Active Metoprolol Succinate ER 25 MG Oral Tablet Extended Release 24 Hour (toPROL XL) Take 1 Tablet by mouth in the morning. 0 01/20/2023 Active Apixaban 5 MG Oral Tablet (Eliquis)Indications: Acute CVA (cerebrovascular accident) (HCC),Paroxysmal atrial flutter (HCC) Take 1 Tablet by mouth in the morning and 1 Tablet before bedtime. 60 Tablet 11 01/26/2023 Active Simethicone 125 MG Oral Capsule Take 1 Capsule by mouth. 0 Active documented as of this encounter (statuses as of 02/10/2023) Active Problems Problem Noted Date Endometrial cancer 02/04/2023 Acute CVA (cerebrovascular accident) 09/2022 Anxiety 01/26/2023 Elevated troponin 01/26/2023 Genetic carrier status 01/26/2023 Intermittent abdominal pain 01/26/2023 Mass of pancreas 01/26/2023 Paroxysmal atrial flutter 01/26/2023 SVT (supraventricular tachycardia) 01/26 Weakness 01/26/2023 Acute left hemiparesis 01/26/2023 Obesity, morbid, BMI 40.0-49.9 9 Overview: Per Obesity protocol documented as of this encounter (statuses as of 02/10/2023) Resolved Problems Problem Noted Date Resolved Date Obesity, morbid (more than 1 00 lbs over ideal weight or BMI > 40) 01/08/2010 04/08/2019 Overview: Per Obesity Protocol, #19 ICD-10 update of inactive term Dyslipidemia, goal LDL below 100 09/15/2014 Obesity 04/08/2019 Overview: Per Obesity protocol documented as of this encounter (statuses as of 02/10/2023) Immunizations Name Administration Dates Next Due COVID-19 mRNA, LNP-s, No Pre serve, 2-Dose Series ([employer]) 10/16/2020,09/25/2020 Seasonal Influenza, Quadriva lent, No Preserve, [...] encounter Miscellaneous Notes * Telephone Encounter - Maria De Jesus Landon RN - 02/10/2023 1:54 PM EDT Images from the original note were not included. Transitions of Care Note Reason for Referral:Recent Admission Phone visit for follow up: PETEY #1 Admitted to: [facility], Date: 02/03/2023 Discharged to: Home, Date: 02/09/2023 Diagnosis driving hospitalization: Endometrial Carcinoma, Pancreatic mass, Symptomatic Anemia, Thrombocytopenia, Supraventricular Tachycardia Attempted PETEY - no answer. Message left ot return call [phone] or . Reminded of PCP appointment 02/12/2023 0900. Notified of late hours and weekend provider visits available if needed. Maria De Jesus Landon RN New medications: Megestrol, Oxycodone, Cipro, Metoprolol BID Held medication: Eliquis Discontinued medication: Aspirin, Metoprolol QD documented in this encounter Plan of Treatment Upcoming Encounters Date Type Specialty Care Team Description 02/12/2023 Office Visit Family Medicine Estrada Haro MD [address] [place] [address] 02/13/2023 Office Visit Neurology Conchita Cabrera MD [address] [place] [address] 02/19/2023 Office Visit Cardiology Salbador Galvin CRNP [address] [place] [address] 04/29/2023 Office Visit Family Medicine Vanesa Solorzano DO [address] [facility] [place] [address] 04/29/2023 Office Visit Gastroenterology Amberly Turner CRNP [address] [place] [address] Health Maintenance Due Date Last Done Comments [...] filedocumented as of this encounter Care Teams Registrar Assistant Relationship Specialty Start Date End Date Vanesa Solorzano, [address] [place] [address] PCP - General Family Medicine 09/21/18 documented as of this encounter
--- OUTSIDE RECORDS SUMMARY | 2023-04-06 06:20 | External Medical Summary | Summary of Care ---
Author Name Unknown Organization [facility] Address [address] [place] [address] Phone [phone] Care Team Providers Care Clerical Order Filler Name Role Phone MichaelVanesa borden Primary Care Provider Encounter Details Date Type Department Care Team Description 02/13/2023 Telephone [facility] [address] [place] [address] Estrada Haro MD [address] [place] [address] Allergies No known active allergiesdocumented [...] times. If chest pain continues, call 911. 50 Tab 11 05/31/2020 Active Pantoprazole Sodium 40 [...] encounter Miscellaneous Notes * Telephone Encounter - Shania Bella LPN - 02/13/2023 10:35 AM EDT Provider to address: n/a Reason for Call: No chief complaint on file. Contact: Telephone Call Contact Type: Follow-up Outcome: Called, left message for patient to return call. Total Time including non face to face (minutes): 5 * Telephone Encounter - Estrada Haro MD - 02/13/2023 9:32 AM EDT Anemia is stable But I want her to discuss about resuming eliquis with neurology and LEASING PROPERTY MANAGER And also glucose has been running high since last month So I added hba1c to rule out DM documented in this encounter Plan of Treatment Upcoming Encounters Date Type Specialty Care Team Description 02/13/2023 Office Visit Neurology Conchita Cabrera MD [address] [place] [address] Arrived 02/18/2023 Office Visit Gynecology Oncology Filemon Brown MD [address] [place] [address] 02/19/2023 Office Visit Cardiology Salbador Galvin CRNP [address] [place] [address] 04/29/2023 Office Visit Family Medicine Vanesa Solorzano, [address] [place] [address] 04/29/2023 Office Visit Gastroenterology Amberly Turner CRNP [address] [place] [address] Health Maintenance Due Date Last Done Comments [...] as of this encounter Visit Diagnoses Diagnosis Hyperglycemia- Primary Other abnormal glucose documented in this encounter Care Teams Clerical Order Filler Relationship Specialty Start Date End Date Vanesa Solorzano, DO [address] [place] [address] PCP - General Family Medicine 09/21/18 documented as of this encounter
--- OUTSIDE RECORDS SUMMARY | 2023-04-06 06:20 | External Medical Summary ---
Author Name Unknown Address Unknown Organization K01:[facility] - [address] [place] [address] Laboratory Report Ordering Provider Test Date Status ROZINA BERUMEN 02/12/2023 09:59:38 Final Observation Date Value Abnormality Reference (Units ) Status CEA 02/12/2023 09:59:38 27.4 Above high normal <= 5.2 (ng/mL) Final Performing Location [facility] - [address] [place] [address]
--- OUTSIDE RECORDS SUMMARY | 2023-04-06 06:20 | External Medical Summary | Summary of Care ---
Author Name Unknown Organization [facility] Address [address] [place] [address] Phone [phone] Care Team Providers Care Pedicab Driver Name Role Phone Vanesa Solorzano Primary Care Provider Reason for Visit * Reason Comments Outpatient Testing Encounter Details Date Type Department Care Team Description 02/12/2023 Laboratory Laboratory, [place] [address] [place] [address] [facility] [address] [place] [address] Endometrial cancer (HCC); Acute CVA (cerebrovascular accident) (HCC); Mass of pancreas; Iron deficiency anemia, unspecified iron deficiency anemia type; Thrombocytopenia (HCC); Abnormal vaginal bleeding; Acute left hemiparesis (HCC) Allergies No known active allergiesdocumented as [...] Office Visit Neurology Conchita Cabrera MD [address] [place] [address] 02/18/2023 Office Visit Gynecology Oncology Filemon Brown MD [address] [place] [address] 02/19/2023 Office Visit Cardiology Salbador Galvin CRNP [address] [place] [address] 04/29/2023 Office Visit Family Medicine Vanesa Solorzano, DO [address] [place] [address] 04/29/2023 Office Visit Gastroenterology Amberly Turner CRNP [address] [place] [address] Pending Results Name Type Priority Associated Diagnoses Date /Time CA 19-9 Lab Routine Endometrial cancer (HCC) 02/12/2023 9:59 AM EDT CEA Lab Routine Endometrial cancer (HCC) 02/12/2023 9:59 AM EDT CA 125 Lab Routine Endometrial cancer (HCC) 02/12/2023 9:59 AM EDT CBC WITH WBC DIFFERENTIAL AND ANEMIA REFLEX [...] Abnormal vaginal bleeding 02/12/2023 9:59 AM EDT ANEMIA CBC Lab Routine Endometrial cancer (HCC) Acute CVA (cerebrovascular accident) (HCC) Mass of pancreas Iron deficiency anemia, unspecified iron deficiency anemia type Thrombocytopenia (HCC) Abnormal vaginal bleeding 02/12/2023 9:59 AM EDT DIFFERENTIAL, AUTOMATED Lab Routine Endometrial cancer (HCC) Acute CVA (cerebrovascular accident) (HCC) Mass of pancreas Iron deficiency anemia, unspecified iron deficiency anemia type Thrombocytopenia (HCC) Abnormal vaginal bleeding 02/12/2023 9:59 AM EDT ANEMIA REFLEX CHEMISTRY HOLD Lab Routine Endometrial cancer (HCC) Acute CVA (cerebrovascular accident) (HCC) Mass of pancreas Iron deficiency anemia, unspecified iron deficiency anemia type Thrombocytopenia (HCC) Abnormal vaginal bleeding 02/12/2023 9:59 AM EDT Health Maintenance Due Date Last [...] this encounter Visit Diagnoses Diagnosis Endometrial cancer (HCC) Malignant neoplasm of corpus uteri, except isthmus Acute CVA (cerebrovascular accident) (HCC) Mass of pancreas Unspecified disease of pancreas Iron deficiency anemia, unspecified iron deficiency anemia type Thrombocytopenia (HCC) Thrombocytopenia, unspecified Abnormal vaginal bleeding Other specified noninflammatory disorder of vagina Acute left hemiparesis (HCC) Hemiplegia, unspecified, affecting unspecified side documented in this encounter Care Teams Pedicab Driver Relationship Specialty Start Date End Date Vanesa Solorzano, [address] [place] [address] PCP - General Family Medicine 09/21/18 documented as of this encounter
--- OUTSIDE RECORDS SUMMARY | 2023-04-06 06:20 | External Medical Summary ---
Author Name Unknown Address Unknown Organization [id number]:[facility] [place] [address] [facility] [address] Laboratory Report Ordering Provider Test Date Status TINA JAIME 02/12/2023 09:59:38 Final Observation Date Value Abnormality Reference (Units ) Status SYNC LEUKOCYTES IN BLOOD BY AUTOMATED COUNT 02/12/2023 09:59:38 14.10 Above high normal 4.00-10.80 (K/uL) Final Segs 02/12/2023 09:59:38 81.0 Above high normal 40.0-75.0 (%) Final Lymphs % 02/12/2023 09:59:38 7.9 Below low normal 18.0-42.0 (%) Final Monos 02/12/2023 09:59:38 6.9 1.0-11.0 (%) Final Eosinophils 02/12/2023 09:59:38 3.0 0.0-6.0 (%) Final Basos 02/12/2023 09:59:38 0.5 0.0-2.0 (%) Final Immature Granulocyte, Percent 02/12/2023 09:59:38 0.7 0.0-2.0 (%) Final Absolute Segs 02/12/2023 09:59:38 11.42 Above high normal 1.80-7.70 (K/uL) Final Lymphs, absolute 02/12/2023 09:59:38 1.11 1.00-4.80 (K/ul) Final Monos, Abs 02/12/2023 09:59:38 0.97 0.00-1.10 (K/uL) Final Eos, Abs 02/12/2023 09:59:38 0.43 0.00-0.70 (K/uL) Final Basos, Abs 02/12/2023 09:59:38 0.07 0.00-0.20 (K/uL) Final Immature Granulocytes, Number 02/12/2023 09:59:38 0.10 0.00-0.20 (K/uL) Final Performing Location [facility] [place] [facility] [place] [address]
--- OUTSIDE RECORDS SUMMARY | 2023-04-06 06:20 | External Medical Summary | Summary of Care ---
Author Name Unknown Organization [facility] Address [address] [place] [address] Phone [phone] Care Team Providers Care College Administrator Name Role Phone Vanesa Solorzano Primary Care Provider Reason for Visit * Reason Comments Outpatient Testing Encounter Details Date Type Department Care Team Description 02/12/2023 Laboratory Laboratory, [place] [address] [place] [address] [facility] [address] [place] [address] Endometrial cancer (HCC); Acute CVA (cerebrovascular accident) (HCC); Mass of pancreas; Iron deficiency anemia, unspecified iron deficiency anemia type; Thrombocytopenia (HCC); Abnormal vaginal bleeding; Acute left hemiparesis (HCC); Hyperglycemia Allergies No known active allergiesdocumented as [...] Office Visit Neurology Conchita Cabrera MD [address] [place] [address] Arrived 02/18/2023 Office Visit Gynecology Oncology Filemon Brown MD [address] [place] [address] 02/19/2023 Office Visit Cardiology Salbador Galvin CRNP [address] [place] [address] 04/29/2023 Office Visit Family Medicine Vanesa Solorzano DO [address] [place] [address] 04/29/2023 Office Visit Gastroenterology Amberly Turner CRNP [address] [facility] [place] [address] Health Maintenance Due Date Last Done Comments [...] Procedure Name Priority Date/Time Associated Diagnosis Comments ANEMIA REFLEX CHEMISTRY HOLD Routine 02/12/2023 9:59 AM EDT Endometrial cancer (HCC) Acute CVA (cerebrovascular accident) (HCC) Mass of pancreas Iron deficiency anemia, unspecified iron deficiency anemia type Thrombocytopenia (HCC) Abnormal vaginal bleeding ANEMIA CBC Routine 02/12/2023 9:59 AM EDT Endometrial cancer (HCC) Acute CVA (cerebrovascular accident) (HCC) Mass of pancreas Iron deficiency anemia, unspecified iron deficiency anemia type Thrombocytopenia (HCC) Abnormal vaginal bleeding DIFFERENTIAL, AUTOMATED Routine 02/12/2023 9:59 AM EDT Endometrial cancer (HCC) Acute CVA (cerebrovascular accident) (HCC) Mass of pancreas Iron deficiency anemia, unspecified iron deficiency anemia type Thrombocytopenia (HCC) Abnormal vaginal bleeding CBC WITH WBC DIFFERENTIAL AND ANEMIA REFLEX WORKUP Routine 02/12/2023 9:59 AM EDT Endometrial cancer (HCC) Acute CVA (cerebrovascular accident) (HCC) Mass of pancreas Iron deficiency anemia, unspecified iron deficiency anemia type Thrombocytopenia (HCC) Abnormal vaginal bleeding RETICULOCYTE PANEL Routine 02/12/2023 9: 59 AM EDT Endometrial cancer (HCC) Acute CVA (cerebrovascular accident) (HCC) Mass of pancreas Iron deficiency anemia, unspecified iron deficiency anemia type Thrombocytopenia (HCC) Abnormal vaginal bleeding CA 125 Routine 02/12/2023 9:59 AM EDT Endometrial cancer (HCC) CA 19-9 Routine 02/12/2023 9:59 AM EDT Endometrial cancer (HCC) COMPREHENSIVE METABOLIC PANEL Routine 02/12/2023 9:59 AM EDT Endometrial cancer (HCC) Acute CVA (cerebrovascular accident) (HCC) Acute left hemiparesis (HCC) Mass of pancreas Iron deficiency anemia, unspecified iron deficiency anemia type Thrombocytopenia (HCC) Abnormal vaginal bleeding CEA Routine 02/12/2023 9:59 AM EDT Endometrial cancer (HCC) documented in this encounter Results * (ABNORMAL) RETICULOCYTE PANEL (02/12/2023 9:59 AM EDT) Reticulocyte Percent 3.24(H) 0.80 - 1.90 % 02/12/2023 4:17 PM EDT [facility] Absolute Reticulocyte 116.6(H) 31.3 - 100.1 K/uL 02/12/2023 4:17 PM EDT [facility] Immature Reticuloctye Fraction 21.9(H) 2.5 - 20.6 % 02/12/2023 4:17 PM EDT [facility] Reticulocyte Hemoglobin 27.0(L) 29.7 - 37.4 pg 02/12/2023 4:17 PM EDT [facility] Blood Venous blood specimen / Unknown Venipuncture / Unknown 02/12/2023 9:59 AM EDT 02/12/2023 9:59 AM EDT Estrada Haro MD LAB BLOOD ORDERABLES Performing Organization Address [facility] Co de Phone Number [facility] [address] [place] [address] * ANEMIA REFLEX CHEMISTRY HOLD (02/12/2023 9:59 AM EDT) Blood Venous blood specimen / Unknown Venipuncture / Unknown 02/12/2023 9:59 AM EDT 02/12/2023 9:59 AM EDT Estrada Haro MD LAB BLOOD ORDERABLES Performing Organization Address City/[facility]/ZIP Co de Phone Number [facility] [place] [address] [place] [address] * (ABNORMAL) DIFFERENTIAL, AUTOMATED (02/12/2023 9:59 AM EDT) WBC 14.10(H) 4.00 - 10.80 K/uL 02/12/2023 4:12 PM EDT [facility] Neutrophils % 81.0(H) 40.0 - 75.0 % 02/12/2023 4:12 PM EDT [facility] Lymphocytes % 7.9(L) 18.0 - 42.0 % 02/12/2023 4:12 PM EDT [facility] Monocytes % 6.9 1.0 - 11.0 % 02/12/2023 4:12 PM EDT [facility] Eosinophils % 3.0 0.0 - 6.0 % 02/12/2023 4:12 PM EDT [facility] Basophils % 0.5 0.0 - 2.0 % 02/12/2023 4:12 PM EDT [facility] Immature Granulocytes % 0.7 0.0 - 2.0 % 02/12/2023 4:12 PM EDT [facility] Absolute Neutrophils 11.42(H) 1.80 - 7.70 K/uL 02/12/2023 4:12 PM EDT [facility] Absolute Lymphocytes 1.11 1.00 - 4.80 K/ul 02/12/2023 4:12 PM EDT [facility] Absolute Monocytes 0.97 0.00 - 1.10 K/uL 02/12/2023 4:12 PM EDT [facility] Absolute Eosinophils 0.43 0.00 - 0.70 K/uL 02/12/2023 4:12 PM EDT [facility] Absolute Basophils 0.07 0.00 - 0.20 K/uL 02/12/2023 4:12 PM EDT [facility] Absolute Immature Granulocytes 0.10 0.00 - 0.20 K/uL 02/12/2023 4:12 PM EDT [facility] Blood Venous blood specimen / Unknown Venipuncture / Unknown 02/12/2023 9:59 AM EDT 02/12/2023 9:59 AM EDT Estrada Haro MD LAB BLOOD ORDERABLES LAB[facility]ATORY [facility] [address] [place] [address] * (ABNORMAL) ANEMIA CBC (02/12/2023 9:59 AM EDT) [facility] WBC 14.10(H) 4.00 - 10.80 K/uL 02/12/2023 4:12 PM EDT [facility] RBC 3.58 3.85 - 5.15 M/uL 02/12/2023 4:12 PM EDT [facility] HGB 9.9(L) 12.0 - 15.3 g/dL 02/12/2023 4:12 PM EDT [facility] Comment: Anemia reflex testing triggers on a HGB < 12.0 for Females and HGB < 13.0 for Males in accordance with the WHO Anemia Guidelines Anemia reflex testing triggers on a HGB < 12.0 for Females and HGB < 13.0 for Males in accordance with the WHO Anemia Guidelines HCT 31.9(L) 36.0 - 45.2 % 02/12/2023 4:12 PM EDT [facility] MCV 89.1 81.5 - 97.5 fL 02/12/2023 4:12 PM EDT [facility] MCH 27.7 27.0 - 34.0 pg 02/12/2023 4:12 PM EDT [facility] MCHC 31.0 32.0 - 36.0 g/dL 02/12/2023 4:12 PM EDT [facility] RDW 15.9 11.5 - 15.5 % 02/12/2023 4:12 PM EDT [facility] PLT 81(L) 140 - 400 K/uL 02/12/2023 4:12 PM EDT [facility] MPV 11.2 6.6 - 11.1 fL 02/12/2023 4:12 PM EDT [facility] nRBCs 0 <=0 /100 WBCs 02/12/2023 4:12 PM EDT [facility] Blood Venous blood specimen / Unknown Venipuncture / Unknown 02/12/2023 9:59 AM EDT 02/12/2023 9:59 AM EDT Estrada Haro MD LAB BLOOD ORDERABLES [facility] [address] [place] [address] * (ABNORMAL) COMPREHENSIVE METABOLIC PANEL (02/12/2023 9:59 AM EDT) BUN 8 6 - 20 mg/dL 02/12/2023 2:42 PM EDT [facility] Creatinine 0.8 0.5 - 1.0 mg/dL 02/12/2023 2:42 PM EDT [facility] Comment:The above reference range is based on the legal sex of the patient only. Results should be interpreted together with patient's sex at , gender identity, and clinical context. Estimated Glomerular Filtration Rate 88 >=60 mL/min 02/12/2023 2:42 PM EDT [facility] Comment:eGFR is calculated b ased on the legal sex of the patient, using the CKD- EPI 2020 equation Sodium 139 135 - 146 mmol/L 02/12/2023 2:42 PM EDT [facility] Potassium 3.9 3.5 - 5.1 mmol/L 02/12/2023 2:42 PM EDT [facility] Chloride 102 98 - 107 mmol/L 02/12/2023 2:42 PM EDT [facility] CO2 20(L) 22 - 32 mmol/L 02/12/2023 2:42 PM EDT [facility] Anion Gap 17(H) 7 - 15 mmol/L 02/12/2023 2:42 PM EDT [facility] Glucose 205(H) 70 - 120 mg/dL 02/12/2023 2:42 PM EDT [facility] Albumin 4.1 3.8 - 5.0 g/dL 02/12/2023 2:42 PM EDT [facility] AST 24 10 - 35 U/L 02/12/2023 2:42 PM EDT [facility] Alkaline Phosphatase 96 35 - 130 U/L 02/12/2023 2:42 PM EDT [facility] Bilirubin, Total 0.5 <=1.2 mg/dL 02/12/2023 2:42 PM EDT [facility] Calcium 9.9 8.4 - 10.2 mg/dL 02/12/2023 2:42 PM EDT [facility] Protein 6.9 6.0 - 8.3 g/dL 02/12/2023 2:42 PM EDT [facility] ALT 16 10 - 35 U/L 02/12/2023 2:42 PM EDT LABORATORY C Blood Venous blood specimen / Unknown Venipuncture / Unknown 02/12/2023 9:59 AM EDT 02/12/2023 9:59 AM EDT Estrada Haro MD LAB BLOOD ORDERABLES [facility]AT[facility] [address] [place] [address] * (ABNORMAL) CA 125 (02/12/2023 9:59 AM EDT) CA 125 259.8(H) <=38.1 U/mL 02/12/2023 5:02 PM EDT [facility] Blood Venous blood specimen / Unknown Venipuncture / Unknown 02/12/2023 9:59 AM EDT 02/12/2023 9:59 AM EDT Brayan MEJIA-C LAB BLOOD ORDERABL ES Performing Organization Address City/[facility]/ZIP Co de Phone Number LAB[facility]ATORY [facility] [address] [place] [address] * (ABNORMAL) CEA (02/12/2023 9:59 AM EDT) CEA 27.4(H) <=5.2 ng/mL 02/12/2023 2:46 PM EDT [facility] Blood Venous blood specimen / Unknown Venipuncture / Unknown 02/12/2023 9:59 AM EDT 02/12/2023 9:59 AM EDT Brayan MEJIA-C LAB BLOOD ORDERABL ES Performing Organization Address [facility] Co de Phone Number LABORATORY [facility] [address] [place] [address] * (ABNORMAL) CA 19-9 (02/12/2023 9:59 AM EDT) CA 19-9 2,311.0(H) <35.0 U/mL 02/12/2023 5:16 PM EDT [facility] Blood Venous blood specimen / Unknown Venipuncture / Unknown 02/12/2023 9:59 AM EDT 02/12/2023 9:59 AM EDT Brayan MEJIA-C LAB BLOOD ORDERABL ES Performing Organization Address [facility] Co de Phone Number [facility] [address] [place] [address] documented in this encounter Visit Diagnoses Diagnosis Endometrial cancer (HCC) Malignant neoplasm of corpus uteri, except isthmus Acute CVA (cerebrovascular accident) (HCC) Mass of pancreas Unspecified disease of pancreas Iron deficiency anemia, unspecified iron deficiency anemia type Thrombocytopenia (HCC) Thrombocytopenia, unspecified Abnormal vaginal bleeding Other specified noninflammatory disorder of vagina Acute left hemiparesis (HCC) Hemiplegia, unspecified, affecting unspecified side Hyperglycemia Other abnormal glucose documented in this encounter Care Teams College Administrator Relationship Specialty Start Date End Date Vansea Solorzano, DO [address] [place] [address] PCP - General Family Medicine 09/21/18 documented as of this encounter
--- OUTSIDE RECORDS SUMMARY | 2023-04-06 06:20 | External Medical Summary | Summary of Care ---
Author Name Unknown Organization [facility] Address [address] [place] [address] Phone [phone] Care Team Providers Care Product Development Consultant Name Role Phone MichaelVanesa borden Primary Care Provider Encounter Details Date Type Department Care Team Description 02/13/[address] [facility] [address] [place] [address] Estrada Haro MD [address] [place] [address] Allergies No known active allergiesdocumented [...] times. If chest pain continues, call 911. 17 Tab 11 05/31/2020 Active Pantoprazole Sodium 40 [...] encounter Miscellaneous Notes * Telephone Encounter - Estrada Haro MD - 02/13/2023 9:32 AM EDT Anemia is stable But I want her to discuss about resuming eliquis with neurology and IMPLEMENTATION DIRECTOR And also glucose has been running high since last month So I added hba1c to rule out DM documented in this encounter Plan of Treatment Upcoming Encounters Date Type Specialty Care Team Description 02/13/2023 Office Visit Neurology Conchita Cabrera MD [address] [place] [address] 02/18/2023 Office Visit Gynecology Oncology Filemon Brown MD [address] [place] [address] 02/19/2023 Office Visit Cardiology Salbador Galvin CRNP [address] [place] [address] 04/29/2023 Office Visit Family Medicine Vanesa Solorzano, DO [address] [place] [address] 04/29/2023 Office Visit Gastroenterology Amberly Turner, TYL[place] [address] [place] [address] Scheduled Orders Name Type Priority Associated Diagnoses Orde r Schedule HEMOGLOBIN A1C Lab Routine Hyperglycemia Expected: 02/13/2023 (Approximate), Expires: 02/13/2024 Health Maintenance Due Date Last Done Comments [...] Additional history exists Pap Smear 01/31/2028 01/30/2023, 0309/2016, 09/09/2013, Additional history exists GARDASIL-HPV IMMUNIZATION SERIES [...] glucose documented in this encounter Care Teams Product Development Consultant Relationship Specialty Start Date End Date Vanesa Solorzano, DO [address] [place] [address] PCP - General Family Medicine 09/21/18 documented as of this encounter
--- OUTSIDE RECORDS SUMMARY | 2023-04-06 06:20 | External Medical Summary ---
Author Name Unknown Address Unknown Organization K01:LABORATORY [facility] [place] - [address] [place] [address] Laboratory Report Ordering Provider Test Date Status CELINETINA HUTSON 02/12/2023 09:59:38 Final Observation Date Value Abnormality Reference (Units ) Status WBC, Total 02/12/2023 09:59:38 14.10 Above high normal 4 .00-10.80 (K/uL) Final RBC 02/12/2023 09:59:38 3.58 3.85-5.15 (M/uL) Final Hemoglobin 02/12/2023 09:59:38 9.9 Below low normal 12 .0-15.3 (g/dL) Final Performing Location LABORATORY [facility] [place] - [address] [place] [address]
--- OUTSIDE RECORDS SUMMARY | 2023-04-06 06:20 | External Medical Summary | Summary of Care ---
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) Odilia Ring DO [address] [place] [address] Referral ID Status Reason Start Date Expiration Date Visits Requested Visits Authorized [id number] Pending Review Specialty Services Required 02/13/[phone] Question Answer Referral Priority Within 10 days (routine) Comments History of a 45 mm pancreatic head mass, FNA consistent with adenocarcinoma, patient has an unlikely surgical 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 * Evaluate & Treat - Unlimited Visits (Within 10 days (routine)) - Pending Review Specialty Diagnoses / Procedures [facility] Referred To Contact Hematology/Oncology / Hematology Oncology Diagnoses 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 Reason for Visit * Reason Onset Date Comments Test Results Biopsy 02/13/2023 Encounter Details Date Type Department Care Team Description 02/13/2023 Telephone Gastroenterology, [facility] [address] [place] [address] Odilia Ring DO [address] [place] [address] Test Results Biopsy Allergies No known active [...] mRNA, LNP-s, No Pre serve, 2-Dose Series ([employer]) 10/16/2020,09/25/2020 Seasonal Influenza, Quadriva lent, No Preserve, [...] encounter Miscellaneous Notes * Telephone Encounter - Odilia Ring, - 02/13/2023 12:17 PM EDT I was [...] transduodenal approach. A stylet was used. A asset protection agent was present and performed a preliminary cytologic [...] Telepathology system by Dr. Lucas and Hal OCAMPO([facility]). Total episode or site evaluations: [...] Immunohistochem Methodology Immunohistochemical stains are performed at [facility] on a Local Mat[employer] automated system with performance determined by the [facility] Laboratory. Some stains may be performed by other laboratories ([facility] or [facility]) with development and performance characteristics determined by [...] which has been internally validated in the [facility] laboratory. Immunocytochemistry may be performed on alcohol fixed smears, cytospins or Thin Prep slides. Immunocytochemistry on all of these types of slides has been internally validated in the [facility] laboratory. documented in this encounter Plan of Treatment Upcoming Encounters Date Type Specialty Care Team Description 02/13/2023 Imaging Radiology Embolic stroke involving right middle cerebral artery (HCC) 02/18/2023 Office Visit Gynecology Oncology Filemon Brown MD [address] [place] [address] 02/19/2023 Office Visit Cardiology Galvin, [place], COFOUNDER [address] [place] [address] 03/20/2023 Office Visit Neurology Greer Davis PA-C [address] [place] [address] 04/29/2023 Office Visit Family Medicine Vanesa Solorzano, [address] [place] [address] 04/29/2023 Office Visit Gastroenterology Amberly Turner CRNP [address] [place] [address] Scheduled Referrals Name Type Priority Associated Diagnoses [...] as of this encounter Visit Diagnoses Diagnosis Embolic stroke involving right middle cerebral artery (HCC) Cerebral embolism with cerebral infarction Malignant neoplasm of head of pancreas (HCC)- Primary Malignant neoplasm of head of pancreas documented in this encounter Care Teams Service Worker Relationship Specialty Start Date End Date Vanesa Solorzano, DO [address] [place] [address] PCP - General Family Medicine 09/21/18 documented as of this encounter
--- OUTSIDE RECORDS SUMMARY | 2023-04-06 06:20 | External Medical Summary | Summary of Care ---
Author Name Unknown Organization [facility] Address [address] [place] [address] Phone [phone] Care Team Providers Care Hot Iron Worker Name Role Phone Vanesa Solorzano Primary Care Provider [phone] Reason for Visit * Reason Onset Date Comments Hospital Follow-Up 02/10/2023 PETEY Encounter Details Date Type Department Care Team Description 02/10/2023 Telephone [place] [address] [place] [address] Yonis Landon, MANJEET Hospital Follow-Up (PETEY) Allergies No known active allergiesdocumented as of this encounter (statuses as of 02/11/2023) Medications Medication Sig Dispensed Refills Start Date [...] 01/20/2023 Active Apixaban 5 MG Oral Tablet (Eliquis)Indicatio [...] and 1 Tablet before bedtime. 0 Active Aspirin 81 MG Oral Tablet Delayed Release 1 Tablet. 0 01/08/2023 02/11/2023 Discontinued (Discharged) Metoprolol Succinate ER 25 MG Oral Tablet Extended Release 24 Hour (toPROL XL) Take 1 Tablet by mouth in the morning. 0 01/20/2023 02/11/2023 Discontinued (Medication/ Dose Changed) Metoprolol Succinate 25 MG Oral Capsule ER 24 Hour Sprinkle Take 25 mg by mouth in the morning and 25 mg before bedtime. 0 02/11/2023 Discontinued (Medication List Clean Up) documented as of this encounter (statuses as of 02/11/2023) Active Problems Problem Noted Date Endometrial cancer 02/04/2023 Acute CVA (cerebrovascular accident) 09/2022 Anxiety 01/26/2023 Elevated troponin 01/26/2023 Genetic carrier status 01/26/2023 Intermittent abdominal pain 01/26/2023 Mass of pancreas 01/26/2023 Paroxysmal atrial flutter 01/26/2023 SVT (supraventricular tachycardia) 01/26 Weakness 01/26/2023 Acute left hemiparesis 01/26/2023 Obesity, morbid, BMI 40.0-49.9 9 Overview: Per Obesity protocol documented as of this encounter (statuses as of 02/11/2023) Resolved Problems Problem Noted Date Resolved Date Obesity, morbid (more than 1 00 lbs over ideal weight or BMI > 40) 01/08/2010 04/08/2019 Overview: Per Obesity Protocol, #19 ICD-10 update of inactive term Dyslipidemia, goal LDL below 100 09/15/2014 Obesity 04/08/2019 Overview: Per Obesity protocol documented as of this encounter (statuses as of 02/11/2023) Immunizations Name Administration Dates Next Due COVID-19 [...] encounter Miscellaneous Notes * Addendum Note - Yonis Landon RN - 02/11/2023 1:28 PM EDTAddended by: YONIS LANDON on: 02/11/2023 01:28 PM Modules accepted: Orders * Telephone Encounter - Yonis Landon RN - 02/10/2023 1:54 PM EDT Images from the original note were not included. Transitions of Care Note Reason for Referral:Recent Admission Phone visit for follow up: PETEY #1 Admitted to: [facility], Date: 02/03/2023 Discharged to: Home, Date: 02/09/2023 Diagnosis driving hospitalization: Endometrial Carcinoma, Pancreatic mass, Symptomatic Anemia, Thrombocytopenia, Supraventricular Tachycardia Attempted PETEY - no answer. Message left ot return call [phone] or . Reminded of PCP appointment 02/12/2023 0900. Notified of late hours and weekend provider visits available if needed. Yonis Landon RN Transitions of Care Note Reason for Referral:Recent Admission Phone visit for follow up: PETEY #2 Admitted to: [facility], Date: 02/03/2023 Discharged to: Home, Date: 02/09/2023 Diagnosis driving hospitalization: Endometrial Carcinoma, Pancreatic mass, Symptomatic Anemia, Thrombocytopenia, Supraventricular Tachycardia Source/Contact: Patient and mother Blanca SUBJECTIVE Consent: Verbal consent for review of hospital discharge: Yes REVIEW OF SYSTEMS Patient/Other Reports: Current patient/caregiver problems or concerns: Continues to have pain in Rt arm. States arm swollen and bruised from wrist to shoulder. IV was in that arm, site not red. States arm was like this in hospital and they were told to put cold compresses on it. Swelling is now less than in hospital. Overall, nothing is worse. No further vaginal bleeding. CV: Denies problems Pulmonary: Denies problems Chills/Sweats/Fever:Denies chills/sweats Denies fever Appetite:Eating better Current diet: Heart Healthy Bowel: denies problems date of last BM: today Bladder: denies problems Wound (If applicable): N/A Pain:Location- Rt arm moderate Sleep:Problematic-Rt. Arm bothers her FUNCTIONAL STATUS: ADL'S: Needs Assistance With:Bathing, Dressing and Toileting IADL'S: Needs Assistance With:Grocery Shopping, Cooking food, Routine Housework and Taking medications Cognitive and Mental Health: denies problems, alert and oriented x 3 and able to communicate, understand instructions, process information. MEDICATION RECONCILIATION Medications: Discharge med list reviewed with patient or caregiver New medications: Megestrol, Oxycodone, Cipro, Metoprolol BID Held medication: Eliquis Discontinued medication: Aspirin, Metoprolol QD ASSESSMENT Medication Risk Assessment: No risks identified Did patient fail outpatient treatment? No Discharge instructions available for review? Yes PLAN Symptom Monitoring Interventions:Member/caregiver education - signs and symptoms to contact PrimaryCare (DO NOT DELETE-Three lee symptoms patient is to report to PCP) 1. Chest Pain/SOB 2. Fever/chills 3. Recurrent vaginal bleeding/ Rt arm redness, increase in pain or swelling Automobile Body Repairer HelperRelay Adjuster of Care interventions/Action Plan: 5 - 7 day follow-up with PCP in place - Date: PCP appointment 02/12/2023 Educated on role of PETEY completed with patient/caregiver. Educated patient/caregiver on patient right to have input on PETEY plan of care. Verification of Home Health/DME if indicated: YES PT from recent CVA Identified Care Gaps: No Care Gaps closed this call: Appointment made or confirmed and Transition of Care follow-up communication Re-evaluation of Plan of Care and progress towards goals achievement: Patient education this visit: Verbal, Confirmed PCP appointment 02/12/2023 in AM, discussed reasons to call sooner as above, notified of late hours and weekend provider visits available if needed. Plan to instructed to call Primary Care Provider with change in symptoms or as needed before next follow-up, discharge needs met, verbalizes understanding and agrees with plan. Discussed Rt. Arm pain, swelling and ecchymosis with Dr. Solorzano. Not noted in discharge summary or notes. Patient to elevate arm, take Tylenol as needed, cold compresses and to come to appt in AM. ER with any worsening symptoms. Spoke with Blanca, patients mother, aware of recommendations by PCP and verbalizes understanding. Patient to go to ER with any worsening pain, swelling from what it was in the hospital. States swellingcontinues to go down and will try Tylenol for pain. Yonis Landon, RN documented in this encounter Plan of Treatment Upcoming Encounters Date Type Specialty Care Team Description 02/12/2023 Office Visit Family Medicine Estrada Haro MD [address] [place] [address] 02/13/2023 Office Visit Neurology Conchita Cabrera MD [address] [place] [address] 02/19/2023 Office Visit Cardiology Salbador Galvin CRNP [address] [place] [address] 04/29/2023 Office Visit Family Medicine [facility]anesa [facility] [address] [facility] [id number] 04/29/2023 Office Visit Gastroenterology Amberly Turner CRNP [address] [place] [address] Health Maintenance Due Date Last Done Comments [...] filedocumented as of this encounter Care Teams Hot Iron Worker Relationship Specialty Start Date End Date Vanesa Solorzano, DO [address] [place] [address] PCP - General Family Medicine 09/21/18 documented as of this encounter
--- OUTSIDE RECORDS SUMMARY | 2023-04-06 06:20 | External Medical Summary | Summary of Care ---
Author Name Unknown Organization [facility] Address [address] [place] [address] Phone [phone] Care Team Providers Care Model Set Artist Name Role Phone MichaelVanesa borden Primary Care Provider Encounter Details Date Type Department Care Team Description 02/12/2023 Telephone [facility] [address] [place] [address] Estrada Haro MD [address] [place] [address] Allergies No known active allergiesdocumented [...] times. If chest pain continues, call 911. 89 Tab 11 05/31/2020 Active Pantoprazole Sodium 40 [...] * Telephone Encounter - ROMANA Ordaz - 02/12/2023 5:00 PM EDT Will work on off of workque * Telephone Encounter - ROMANA Obando - 02/12/2023 9:49 AM EDT Patient is to be seen by Gastro within 3 days per referral. Please call patient to schedule. Dx: Mass of pancreas [K86.89] Thank you. documented in this encounter Plan of Treatment Upcoming Encounters Date Type Specialty Care Team Description 02/13/2023 Office Visit Neurology Conchita Cabrera MD [address] [place] [address] 02/18/2023 Office Visit Gynecology Oncology Filemon Brown MD [address] [place] [address] 02/19/2023 Office Visit Cardiology Salbador Galvin CRNP [address] [place] [address] 04/29/2023 Office Visit Family Medicine Vanesa Solorzano DO [address] [facility] [place] [place] [address] 04/29/2023 Office Visit Gastroenterology Amberly Turner, TYLER [address] [place] [address] Health Maintenance Due Date Last Done Comments [...] filedocumented as of this encounter Care Teams Model Set Artist Relationship Specialty Start Date End Date Vanesa Solorzano, DO [address] [place] [address] PCP - General Family Medicine 09/21/18 documented as of this encounter
--- OUTSIDE RECORDS SUMMARY | 2023-04-06 06:20 | External Medical Summary ---
Author Name Unknown Address Unknown Organization [id number]:[facility] – [place] - [facility] [address] [facility] [address] [facility] [address] Laboratory Report Ordering Provider Test Date Status TINA JAIME 02/12/2023 09:59:38 Final Observation Date Value Abnormality Reference (Units ) Status Retic, % (auto) 02/12/2023 09:59:38 3.24 Above high normal 0.80-1.90 (%) Final Reticulocytes, Absolute 02/12/2023 09:59:38 116.6 Above high normal 31.3-100.1 (K/uL) Final Reticulocyte fraction, immature 02/12/2023 09:59:38 21.9 Above high normal 2.5-20.6 (%) Final Reticulocyte HGB 02/12/2023 09:59:38 27.0 Below low normal 29.7-37.4 (pg) Final Performing Location [facility] [place] - [facility] [address] [facility] [address]
--- OUTSIDE RECORDS SUMMARY | 2023-04-06 06:20 | External Medical Summary ---
Author Name Unknown Address Unknown Organization K01:[facility] [place] [address] [place] [address] Laboratory Report Ordering Provider Test Date Status TINA JAIME 02/12/2023 09:59:38 Final Observation Date Value Abnormality Reference (Units ) Status BUN 02/12/2023 09:59:38 8 6-20 (mg/d L) Final Creatinine 02/12/2023 09:59:38 0.8 0.5-1.0 ( mg/dL) Final Performing Location LAB[facility]ATORY [facility] - [address] [place] [address]
--- OUTSIDE RECORDS SUMMARY | 2023-04-06 06:20 | External Medical Summary | Summary of Care ---
Author Name Unknown Organization [facility] Address [address] [place] [address] Phone [phone] Care Team Providers Care Cryptologist Name Role Phone Vanesa Solorzano Primary Care Provider Reason for Visit * Reason Onset Date Comments Hospital Follow-Up 02/10/2023 PETEY Encounter Details Date Type Department Care Team Description 02/10/2023 Telephone [place] [address] [place] [address] Yonis Landon, MANJEET Hospital Follow-Up [...] for follow up: PETEY #1 Admitted to: [facility], Date: 02/03/2023 Discharged to: Home, Date: 02/09/2023 Diagnosis driving hospitalization: Endometrial Carcinoma, Pancreatic mass, Symptomatic Anemia, Thrombocytopenia, Supraventricular Tachycardia Attempted PETEY - no answer. Message left ot return call [phone] or . Reminded of PCP appointment 02/12/2023 0900. Notified of late hours and weekend provider visits available if needed. Yonis Landon RN Transitions of Care Note Reason for Referral:Recent Admission Phone visit for follow up: PETEY #2 Admitted to: [facility], Date: 02/03/2023 Discharged to: Home, Date: 02/09/2023 [...] arm redness, increase in pain or swelling Photograph InspectorOperations Management Professionals of Care interventions/Action Plan: 5 - 7 [...] compresses and to come to appt in AM to assess. ER with any worsening symptoms. Yonis Landon, RN documented in this encounter Plan of Treatment Upcoming Encounters Date Type Specialty Care Team Description 02/12/2023 Office Visit Family Medicine Estrada Haro MD [address] [place] [address] 02/13/2023 Office Visit Neurology Conchita Cabrera MD [address] [place] [address] 02/19/2023 Office Visit Cardiology Salbador Galvin CRNP [address] [place] [address] 04/29/2023 Office Visit Family Medicine Vanesa Solorzano DO [address] [place], [place] [phone] 04/29/2023 Office Visit Gastroenterology Amberly Turner, TYLER [address] [place] [address] Health Maintenance Due Date Last Done Comments [...] filedocumented as of this encounter Care Teams Cryptologist Relationship Specialty Start Date End Date Vanesa Solorzano, DO [address] [place] [address] PCP - General Family Medicine 09/21/18 documented as of this encounter
--- OUTSIDE RECORDS SUMMARY | 2023-04-06 06:20 | External Medical Summary | Summary of Care ---
Author Name Unknown Organization [facility] Address [address] [place] [address] Phone [phone] Care Team Providers Care Mine Safety Manager Name Role Phone Vanesa Solorzano Primary Care Provider Reason for Visit * Reason Onset Date Comments Test Results 02/13/2023 Encounter Details Date Type Department Care Team Description 02/13/2023 Telephone Located Within [facility] [address] [place] [address] Estrada Haro MD [address] [place] [address] Test Results Allergies No known active allergiesdocumented as of [...] times. If chest pain continues, call 911. 42 Tab 11 05/31/2020 Active Pantoprazole Sodium 40 [...] encounter Miscellaneous Notes * Addendum Note - Estrada Haro MD - 02/13/2023 1:33 PM EDTAddended by: ESTRADA HARO on: 02/13/2023 01:33 PM Modules accepted: Orders * Telephone Encounter - Estrada Haro MD - 02/13/2023 1:32 PM EDT noted * Telephone Encounter - Edna Rosales LPN - 02/13/2023 10:50 AM EDT Provider to address: Patient aware and verbalized understanding, will comply. Currently at Neuro appt. Will discuss Eliquis with Dr Cabrera and Dr Brown next week. If Dr. Cabrera wants blood work done today she will have the HGBA1C done, if not he wants to wait until 02/18 [address] [place] Please place a new A1C order, cancelled yesterday. Reason for Call: Test Results Contact: Telephone Call Contact Type: Test Results Total Time including non face to face (minutes): 10 * Telephone Encounter - Shania Bella LPN [...] discuss about resuming eliquis with neurology and MEMBER OF THE LEGISLATIVE ASSEMBLY And also glucose has been running high since last month So I added hba1c to rule out DM documented in this encounter Plan of Treatment Upcoming Encounters Date Type Specialty Care Team Description 02/18/2023 Office Visit Gynecology Oncology Filemon Brown MD [address] [place] [address] 02/19/2023 Office Visit Cardiology Salbador Galvin CRNP [address] [place] [address] 03/20/2023 Office Visit Neurology Greer Davis PA-C [address] [facility] [place] [id number] 04/29/2023 Office Visit Family Medicine Vanesa Solorzano, [address] [place] [address] 04/29/2023 Office Visit Gastroenterology Amberly Turner CRNP [address] [place] [address] Scheduled Orders Name Type Priority Associated Diagnoses [...] glucose documented in this encounter Care Teams Mine Safety Manager Relationship Specialty Start Date End Date Vanesa Solorzano, DO [address] [place] [address] PCP - General Family Medicine 09/21/18 documented as of this encounter
--- OUTSIDE RECORDS SUMMARY | 2023-04-06 06:20 | External Medical Summary | Summary of Care ---
Author Name Unknown Organization [facility] Address [address] [place] [address] Phone [phone] Care Team Providers Care Electric Wheelchair Repairer Name Role Phone Vanesa Solorzano Primary Care Provider Reason for Visit * Reason Onset Date Comments NEW PATIENT 02/13/2023 STAR SEEN SOONER Encounter Details Date Type Department Care Team Description 02/13/2023 Telephone Hematology/Oncology [facility] [address] [facility] [place] [address] Crescencio Rosales MD [address] [place] [address] NEW PATIENT (STAR SEEN SOONER) Allergies No known active allergiesdocumented as of [...] 3 times. If chest pain continues, call [phone]. [phone] Tab 11 05/31/2020 Active Pantoprazole Sodium [...] encounter Miscellaneous Notes * Telephone Encounter - Lauren Cabezas CMA - 02/13/2023 2:50 PM EDT Referral received for patient to be seen for New Oncology Consult requested by Dr. Odilia Ring for the diagnosis of Pancreatic cancer Called cell; had to leave message; stated have opening for 02/17 at 8am with a 745am arrival time with Dr. Lou Rosales and to contact our office back to confirm this appt or have call transferred to Lauren [facility] for different date and time documented in this encounter Plan of Treatment Upcoming Encounters Date Type Specialty Care Team Description 02/17/2023 Office Visit Hematology Oncology Crescencio Rosales MD [address] [place] [address], [place] [address] 02/18/2023 Office Visit Gynecology Oncology Filemon Brown MD [address] [place] [address] 02/19/2023 Office Visit Cardiology Galvin, [place], BOTTOMING MACHINE OPERATOR [address] [place] [address] 02/20/2023 Office Visit Gynecology Obstetrics BackerNida CRNP [address] [place] [address] 03/20/2023 Office Visit Neurology Greer Davis PA-C [address] [place] [address] 04/29/2023 Office Visit Family Medicine Vanesa Solorzano DO [address] [place] [address] 04/29/2023 Office Visit Gastroenterology Amberly Turner CRNP [address] [place] [address] Health Maintenance Due Date Last Done Comments [...] filedocumented as of this encounter Care Teams Electric Wheelchair Repairer Relationship Specialty Start Date End Date Vanesa Solorzano, [address] [place] [address] PCP - General Family Medicine 09/21/18 documented as of this encounter
--- OUTSIDE RECORDS SUMMARY | 2023-04-06 06:20 | External Medical Summary | Summary of Care ---
Author Name Unknown Organization [facility] Address [address] [place] [address] Phone [phone] Care Team Providers Care Log Truck Driver Name Role Phone Vanesa Solorzano Primary Care Provider Reason for Referral * Precert (Within 24 hrs (call dept; emergent)) - Authorized Specialty Diagnoses / Procedures Referred By Contac t Referred To Contact Radiology Diagnoses Embolic stroke involving right middle cerebral artery (HCC) Procedures CT HEAD/BRAIN WO CONTRAST Conchita Cabrera MD [address] [place] [id number] Referral ID Status Reason Start Date Expiration Date V isits Requested Visits Authorized [id number] Authorized Precert 02/13/2023 08/12/2023 999 999 Reason for Visit * Reason Comments NEW PATIENT * Evaluate & Treat - Unlimited Visits (Within 10 days (routine)) - Pending Review Specialty Diagnoses / Procedures Referred By Contac t Referred To Contact Neurology Diagnoses Acute CVA (cerebrovascular accident) (HCC) Anna Jamil MD [address] [place] [address] Referral ID Status Reason Start Date Expiration Date Visits Requested Visits Authorized [id number] Pending Review Specialty Services Required 01/26/2023 999 999 Encounter Details Date Type Department Care Team Description 02/13/2023 Office Visit Neurology [facility] Lisandra [place] [address] [facility] [place], [place] [address] Conchita Cabrera MD [address] [facility] [place], [place] [address] Embolic stroke involving right middle cerebral artery (HCC)* Allergies No known active allergiesdocumented as [...] mRNA, LNP-s, No Pre serve, 2-Dose Series ([employer]) 10/16/2020,09/25/2020 Seasonal Influenza, Quadriva lent, No Preserve, [...] Sign Reading Time Taken Comments Blood Pressure 106/60 02/13/2023 10:55 AM EDT Pulse 88 02/13/2023 10:55 AM EDT Temperature 36.6 C (97.9 F) 02/13/2023 1 0:55 AM EDT Respiratory Rate 20 02/13/2023 10:5 5 AM EDT Oxygen Saturation 99% 02/13/2023 10: 55 AM EDT Inhaled Oxygen Concentration - - Weight 113.7 kg (250 lb 11.2 oz) 2022 10:55 AM EDT Height - - Body Mass Index 43.03 02/12/2023 8:58 AM EDT documented in this encounter Progress Notes * Conchita Cabrera MD - 02/13/2023 12:48 PM EDT CLINIC NOTES [facility] [place] [address] [facility] [address] Jacque Spivey : 1960 NEUROLOGY OUTPATIENT NOTE 02/13/2023 HISTORY: The patient is referred for consultation by Dr. Solorzano, who will be receiving a copy of this note. Reason for consultation right parietal infarction The patient is a 62-year-old right-handed female with a history of migraine and hyperlipidemia on this background on January 02 she awakened and had difficulty getting dressed and noted some weakness in her left leg. She was brought to [facility] with those complaints some complaints of numbness in her left hand. On her exam she had mild left arm and leg weakness with some ataxia and dysesthesias. The patient declined at T and K. CT angiography were said to be unremarkable showed no vascular stenosis an MRI the brain which I believe was non comp tract showed a medium-sized right parietotemporal stroke with other acute punctate strokes in the bioccipital head regions and right cerebellum there was no evidence of hemorrhage the people patient was said to be in atrial flutterCT of the abdomen showed a pancreatic head mass which has subsequently been biopsied. The patient also has been found to have endometrial cancer. She was initially maintained on aspirin with a plan of starting Eliquis in 2 weeks. Patient had a uterine biopsy 1 day the 2nd the next day started Eliquis and then the following day had significant vaginal bleeding which continued. They had not continue the Eliquis by 2 days later she was weak went to the emergency room and required a blood transfusion. Aspirin and Eliquis have not been resumed. The patient has subsequently undergone the biopsy of her pancreas mass and is waiting the pathology. Her indicates that she is generally doing well not complaining of headaches but she is beenhaving more right left confusion recently and it is approximately 6 weeks out from the initial stroke she is getting home therapy although that was on hold until she saw me She has a history of rheumatic fever unclear if she has a history of murmur was not known to have atrial fibrillation or flutter previously no other history of hypercoagulable state Past Medical History: Diagnosis Date Acute CVA (cerebrovascular accident) (HCC) 01/26/2023 Acute left hemiparesis (HCC) 01/26/2023 Anxiety 01/26/2023 Dyslipidemia, goal LDL below 130 Endometrial carcinoma (HCC) 02/04/2023 Gestational hypertension Mass of pancreas 01/26/2023 Obesity, morbid, BMI 40.0-49.9 ([facility]) 04/04/2019 Per Obesity protocol Other screening mammogram 03/10/2005 wnl per [facility] at Paroxysmal atrial flutter (HCC) 01/26/2023 SVT (supraventricular tachycardia) ([facility]) 01/26/2023 Patient Active Problem List Diagnosis Code Obesity, morbid, BMI 40.0-49.9 (HCC) E66.01 Acute CVA (cerebrovascular accident) (HCC) I63.9 Anxiety F41.9 Elevated troponin R77.8 Genetic carrier status Z14.8 Intermittent abdominal pain R10.9 Mass of pancreas K86.89 Paroxysmal atrial flutter (HCC) I48.92 SVT (supraventricular tachycardia) (HCC) I47.1 Weakness R53.1 Acute left hemiparesis (HCC) G81.94 Endometrial cancer (HCC) C54.1 Pancreatic cancer (HCC) C25.9 Past Surgical History: Procedure Laterality Date COLONOSCOPY, DIAGNOSTIC (RECTUM) 11/15/2013 perianal and digital rectal exam normal, severe stenosis found at 35 cm proximal to the anus and was non-transversed, stricture at 35 cm in colon, CT scan abd/pelvis/COLONOSCOPY FLEXIBLE PROXIMAL DIAGNOSTIC performed by You Gregory MD at ENDOSCOPY [facility] COLONOSCOPY, DIAGNOSTIC (RECTUM) 03/09/2014 COLONOSCOPY FLEXIBLE [...] level: Not on file Occupational History Occupation: [employer] Employer: [employer] Comment: [employer] Occupation: [employer] Comment: 2009 Tobacco Use Smoking status: Never Smokeless tobacco: Never Substance and Sexual Activity Alcohol use: Yes Comment: Occasionally Drug use: No Sexual activity: Yes Partners: Male control/protection: Surgical Comment: BTL Other Topics Concern Not on file Social History Narrative Working at [employer]. Son George, and living with her. And [...] Brother Hypertension Brother Breast Cancer Grandmother (Paternal) Current Outpatient Medications Medication Sig Dispense Refill [...] the morning and 1 Tablet before bedtime. Simethicone 125 MG Oral Capsule Take 1 [...] taking: Reported on 02/13/2023) 60 Tablet 11 No current facility-administered medications for this visit. Review of patient's allergies indicates: No Known Allergies REVIEW OF SYSTEMS: Weight loss poor appetite feeling fatigued trouble sleeping problems with sun bruises easily abnormal bleeding ringing in ears wears corrective lenses rheumatic fever palpitations ankle swelling stroke arthritis abdominal pain diarrhea all others negative PHYSICAL EXAM: BP 106/60 | Pulse 88 | Temp 36.6 C (97.9 F) (Tympanic) | Resp 20 | Wt 113.7 kg (250 lb 11.2 oz) | SpO2 99% | BMI 43.03 kg/m | BSA 2.27 m Patient is awake and alert oriented to person place. There is a sense of right left confusion and abnormal visual spatial relationships. There are no carotid bruits no heart murmurs heart is regular rate and rhythm pupils are equal there is no papilledema normal visual triplett no visual extinction no significant flattening of the nasolabial fold mild dysarthria motor left upper extremity about 4 4+ left lower nearly full there is a left drift rapid alternating movements are mildly diminished on the left. Reflexes are symmetric toes are downgoing [id number] is clumsy in the left upper gait was not tested sensation is intact to light touch no obvious double simultaneous stimulation extinction IMPRESSION: Right parietal infarction likely embolic given the multiple vascular distributions. Hypercoagulable state within the differential given her presumed pancreatic cancer and endometrial cancer. Patient's indicates that her right left confusion is worse will do CT of the head today make sure there is no hemorrhagic transformation. At some point when the patient's GI stent is removed I might like to do a follow-up MRI of the brain with and without contrast. I do not have a sense that been any partial complex seizures. This patient needs anticoagulants defer to Cardiology regarding which agent. I sent a message to Nida SCOTT and Héctor Ring regarding restarting her anticoagulants when she is able. The patient can resume physical therapy. I will see her back in 1 month Conchita Cabrera MD 02/13/2023 12:48 PM documented in this encounter Nursing Notes * Frances Ardon LPN - 02/13/2023 10:55 AM EDT Chief Complaint Patient presents with NEW PATIENT documented in this encounter Plan of Treatment Upcoming Encounters Date Type Specialty Care Team Description 02/18/2023 Office Visit Gynecology Oncology Filemon Brown MD [address] [place] [address] 02/19/2023 Office Visit Cardiology Salbador Galvin CRNP [address] [place] [address] 03/20/2023 Office Visit Neurology Greer Davis PA-C [address] [facility] [place] [address] 04/29/2023 Office Visit Family Medicine Vanesa Solorzano DO [address] [place] [address] 04/29/2023 Office Visit Gastroenterology Amebrly Turner CRNP [address] [place] [address] Pending Results Name Type Priority Associated Diagnoses Date /Time CT HEAD/BRAIN WO CONTRAST Medical Imaging STAT Embolic stroke involving right middle cerebral artery (HCC) 02/13/2023 12:43 PM EDT Scheduled Orders Name Type Priority Associated Diagnoses Orde r Schedule CT HEAD/BRAIN WO CONTRAST Medical Imaging STAT Embolic stroke involving right middle cerebral artery (HCC) Expected: 02/13/2023, Expires: 03/16/2024 Health Maintenance Due Date Last Done Comments [...] Embolic stroke involving right middle cerebral artery (HCC)- Primary Cerebral embolism with cerebral infarction documented in this encounter Care Teams Log Truck Driver Relationship Specialty Start Date End Date Vanesa Solorzano, DO [address] [place] [address] PCP - General Family Medicine 09/21/18 documented as of this encounter"
--- OUTSIDE RECORDS SUMMARY | 2023-04-06 06:20 | External Medical Summary ---
Author Name Unknown Address Unknown Organization K[facility] - [address] [place] [address] Laboratory Report Ordering Provider Test Date Status ROZINA BERUMEN 02/12/2023 09:59:38 Final Observation Date Value Abnormality Reference (Units ) Status Cancer Ag 19-9 02/12/2023 09:59:38 2311.0 Above high norm al <35.0 (U/mL) Final Performing Location [facility] [address] [facility] [address]
--- OUTSIDE RECORDS SUMMARY | 2023-04-06 06:20 | External Medical Summary | Summary of Care ---
Author Name Unknown Organization [facility] Address [address] [place] [address] Phone [phone] Care Team Providers Care Arresting Gear Operator Name Role Phone Vanesa Solorzano Primary Care Provider Reason for Visit * Reason Onset Date Comments Test Results 02/13/2023 Encounter Details Date Type Department Care Team Description 02/13/[address] [facility] [address] [place] [address] Estrada Haro MD [address] [place] [address] Test Results Allergies No known [...] Miscellaneous Notes * Telephone Encounter - Edna Rosales LPN - 02/13/2023 10:50 AM EDT Provider to address: Patient aware and verbalized understanding, will comply. Currently at Neuro appt. Will discuss Eliquis with Dr Cabrera and Dr Brown next week. If Dr. Cabrera wants blood work done today she will have the HGBA1C done, if not he wants to wait until 02/18 in [place]. Please place a new A1C order, cancelled [...] discuss about resuming eliquis with neurology and CREATIVE DEVELOPER And also glucose has been running high since last month So I added hba1c to rule out DM documented in this encounter Plan of Treatment Upcoming Encounters Date Type Specialty Care Team Description 02/18/2023 Office Visit Gynecology Oncology Filemon Brown MD [address] [place] [address] 02/19/2023 Office Visit Cardiology Salbador Galvin CRNP [address] [place] [address] 04/29/2023 Office Visit Family Medicine Vanesa Solorzano DO [address] [place] [address] 04/29/2023 Office Visit Gastroenterology Amberly Turner CRNP [address] [place] [address] Health Maintenance Due Date Last Done Comments [...] glucose documented in this encounter Care Teams Arresting Gear Operator Relationship Specialty Start Date End Date Vanesa Solorzano, [address] [place] [address] PCP - General Family Medicine 09/21/18 documented as of this encounter
--- OUTSIDE RECORDS SUMMARY | 2023-04-06 06:21 | External Medical Summary | Summary of Care ---
Author Name Unknown Organization [facility] Address [address] [place] [address] Phone [phone] Care Team Providers Care Office Correspondent Name Role Phone Vanesa Solorzano Primary Care Provider Reason for Referral * Evaluate & Treat - Unlimited Visits (Within 10 days (routine)) - Pending Review Specialty Diagnoses / Procedures Referred By Todd young Referred To Contact Gynecologic Oncology / Gynecology Oncology Diagnoses Endometrial carcinoma (HCC) Nida Borden CRNP [address] [place] [address] Referral ID Status Reason Start Date Expiration Date Visits Requested Visits Authorized [id number] Pending Review Specialty Services Required 02/04/2023 999 999 Question Answer Referral Priority Within 10 days (routine) Reason for Visit * Reason Onset Date Comments Test Results 02/04/2023 Encounter Details Date Type Department Care Team Description 02/04/2023 Telephone Gynecology/Obstetrics [facility] [address] [place] [address] Nida Borden CRNP [address] [place] [address] Test Results Allergies No known active allergiesdocumented as of this encounter (statuses as of 02/04/2023) Medications Medication Sig Dispensed Refills Start Date [...] as of this encounter (statuses as of 02/04/2023) Active Problems Problem Noted Date Endometrial carcinoma 02/04/2023 Acute CVA (cerebrovascular accident) 09/2022 Anxiety 01/26/2023 Elevated troponin 01/26/2023 Genetic carrier status 01/26/2023 Intermittent abdominal pain 01/26/2023 Mass of pancreas 01/26/2023 Paroxysmal atrial flutter 01/26/2023 SVT (supraventricular tachycardia) 01/26 Vaginal bleeding 01/26/2023 Weakness 01/26/2023 Acute left hemiparesis 01/26/2023 Obesity, morbid, BMI 40.0-49.9 9 Overview: Per Obesity protocol documented as of this encounter (statuses as of 02/04/2023) Resolved Problems Problem Noted Date Resolved Date Obesity, morbid (more than 1 00 lbs over ideal weight or BMI > 40) 01/08/2010 04/08/2019 Overview: Per Obesity Protocol, #19 ICD-10 update of inactive term Dyslipidemia, goal LDL below 100 09/15/2014 Obesity 04/08/2019 Overview: Per Obesity protocol documented as of this encounter (statuses as of 02/04/2023) Immunizations Name Administration Dates Next Due COVID-19 [...] Telephone Encounter - Christi Fry RN - 02/04/2023 3:50 PM EDT Patient needs a Engine Head Repairer/Oncology consult. Order placed in [employer] and records in [phone] to schedule. Referring Provider TYLER Solo * Telephone Encounter - TYLER gA - 02/04/2023 3:14 PM EDT Referral placed. VALE Webster. TYLER Kaminski * Telephone Encounter - Christi Fry RN - 02/04/2023 3:[address] Doty did talk with pt and asked that Salbador place the cobbler sole onc referral but pt is having a bx of her pancreas this Thursday so may not be available for a bit. * Telephone Encounter - TYLER Ag - 02/04/2023 11:10 AM EDT Ok, thanks so much. Let me know if I need to place a referral to cobbler sole/onc, or if Dr Doty will. Salbador * Telephone Encounter - Christi Fry RN - 02/04/2023 11:03 AM EDT I spoke with Dr. Doty who was asked to be consulted on this pt (admitted for another reason). Pathreport read to Dr Doty. He will notify pt. Message to Salbador so she is aware. * Telephone Encounter - TYLER Ag - 02/04/2023 8:27 AM EDT Called pt's cell phone, son answered. Pt not available, son advised to call pt's You - [phone]. Pt currently hospitalized due to dehydration. Pt not available, pt's would like to call us back when he is with her. Given nurse triage number. TYLER Kaminski documented in this encounter Plan of Treatment Upcoming Encounters Date Type Specialty Care Team Description 02/06/2023 Procedure Only Endoscopy Odilia Ring, DO [address] [place] [address] 02/13/2023 Office Visit Neurology Conchita Cabrera MD [address] [place] [address] 02/19/2023 Office Visit Cardiology Salbador Galvin CRNP [address] [place] [address] 04/29/2023 Office Visit Family Medicine Vanesa Solorzano DO [address] [place] [address] 04/29/2023 Office Visit [facility]enterology [facility] Turner [facility] [address] [facility] [place] [address] Scheduled Referrals Name Type Priority Associated Diagnoses Orde r Schedule TRANSMITTER ENGINEER IN CHARGE/ONC REFERRAL OP Referral Within 10 da ys (routine) Endometrial carcinoma (HCC) Ordered: 02/04/2023 Health Maintenance Due Date Last Done Comments [...] of this encounter Visit Diagnoses Diagnosis Endometrial carcinoma (HCC)- Primary Malignant neoplasm of corpus uteri, except isthmus documented in this encounter Care Teams Office Correspondent Relationship Specialty Start Date End Date Vanesa Solorzano, [address] [place] [address] PCP - General Family Medicine 09/21/18 documented as of this encounter
--- OUTSIDE RECORDS SUMMARY | 2023-04-06 06:21 | External Medical Summary | Summary of Care ---
Author Name Unknown Organization [facility] Address [address] [place] [address] Phone [phone] Care Team Providers Care Materials Associate Name Role Phone Vanesa Solorzano Primary Care Provider Encounter Details Date Type Department Care Team Description 01/05/2023 Telephone Gastroenterology, [facility] [address] [place] [address] Yazmin Mast CRNP [address] [place] [address] Allergies No known active allergiesdocumented as of this encounter (statuses as of 01/06/2023) Medications Medication Sig Dispensed Refills Start Date End Date Status TYLENOL 325 MG PO TABS uses as needed 0 Active clonazePAM 0.5 MG Oral Tablet (KlonoPIN)Indications: Stress due to illness of family member Take 1 Tab by mouth 2 times a day as needed for Anxiety or Insomnia. 30 Tab 0 05/31/2020 Active Nitroglycerin 0.3 MG Sublingual Tablet Sublingual (NITROSTAT)Indications :Chest pain, unspecified type Place 1 Tab under the tongue as needed for Pain, Chest. May repeat 3 times. If chest pain continues, call 911. 25 Tab 11 05/31/2020 Active Meloxicam 7.5 MG Oral TabletIndications:Arth ritis of right ankle TAKE 1 TAB BY MOUTH DAILY. FOR PAIN. 90 Tab 1 03/11/2021 Active documented as of this encounter (statuses as of 01/06/2023) Active Problems Problem Noted Date Body mass index (BMI) of 45.0 to 49.9 in adult 04/04/2019 Overview: Per Obesity protocol Dyslipidemia, goal LDL below 130 documented as of this encounter (statuses as of 01/06/2023) Resolved Problems Problem Noted Date Resolved Date Obesity, morbid (more than 1 00 lbs over ideal weight or BMI > 40) 01/08/2010 04/08/2019 Overview: Per Obesity Protocol, #19 ICD-10 update of inactive term Dyslipidemia, goal LDL below 100 09/15/2014 Obesity 04/08/2019 Overview: Per Obesity protocol documented as of this encounter (statuses as of 01/06/2023) Immunizations Name Administration Dates Next Due Seasonal Influenza, Quadriva lent, No Preserve, 6 [...] = 0.6 oz pur e alcohol) Occasionally Food Insecurity Answer Date Recorded Within the past 12 months, y ou worried that your food would run out before you got money to buy more. Never true 05/31/2020 Within the past 12 months, t he food you bought just didn't last and you didn't have money to get more. Never true 05/31/2020 Sex Assigned at Date Recorded Not on file Job Start Date Occupation Industry Not on file Not on file Not on file documented as of this encounter Miscellaneous Notes * Telephone Encounter - TYLER Bernal - 01/06/2023 2:07 PM EDT Lets try to get scheduled in hospital setting in about 2-6 weeks pending anesthesia thanks AMS * Telephone Encounter - ROMANA Ordaz - 01/05/2023 3:30 PM EDT Yazmin, please see response from PAT * Telephone Encounter - ROMANA Ordaz - 01/05/2023 12:49 PM EDT Please review and advise per Yazmin Thank you * Telephone Encounter - TYLER Bernal - 01/05/2023 10:54 AM EDT Pt admitted with CVA Imaging showing pancreas mass Needs EGD/EUS as soon as cleared by anesthesia TYLER Garcia 01/05/2023 10:55 AM documented in this encounter Plan of Treatment Scheduled Orders Name Type Priority Associated Diagnoses Orde r Schedule EGD, W/ENDOSCOPIC US Procedures Routine Pancreatic mass Ordered: 01/05/2023 Health Maintenance Due Date Last Done Comments COVID-19 Vaccine (#1) 03/20/1961 HIV Screening 1977 Hepatitis C Screening 1980 Cologuard 2007 Sigmoidoscopy 2007 Zoster Vaccines (1 of 2) 2012 Fecal Occult Blood Test 09/26/2017 09/27/19 17, 09/19/2015, 09/09/2013, Additional history exists Depression Screening, Annual for Pts 12 and Over 05/31/2021 05/31/2020 Mammogram 06/25/2021 06/25/2020, 03/27, 09/27/2018, Additional history exists Pap Smear 09/26/2021 09/26/2016, 08/27, 12/16/2011, Additional history exists Influenza Vaccine (FLU shot) (Season Ended) 2023 05/31/2020, 08/06/2018, 05/04/2013 DTaP,Tdap,and Td Vaccines (2 - Td or Tdap) 05/04/2023 05/04/2013, 09/12/2003 Diabetes Screening 05/31/2023 05/31/2020, 0 09/27/2018, 09/26/2016, Additional history exists Colonoscopy 03/09/2024 03/09/2014, 02/24, 11/15/2013, Additional history exists Colorectal Cancer Screening 03/09/2024 Lipid Panel 05/31/2025 05/31/2020, 10/2018, 09/26/2016, Additional history exists GARDASIL-HPV IMMUNIZATION SERIES Aged Out No longer eligible based on patient's age to complete this topic Hepatitis B Aged Out No longer eligi ble based on patient's age to complete this [...] as of this encounter Visit Diagnoses Diagnosis Pancreatic mass- Primary Unspecified disease of pancreas documented in this encounter Care Teams Materials Associate Relationship Specialty Start Date End Date Vanesa Solozrano, [address] [place] [address] PCP - General Family Medicine 09/21/18 documented as of this encounter
--- OUTSIDE RECORDS SUMMARY | 2023-04-06 06:21 | External Medical Summary | Summary of Care ---
Author Name Unknown Organization [facility] Address [address] [place] [address] Phone [phone] Care Team Providers Care Online Community Manager Name Role Phone Vanesa Solorzano Primary Care Provider [phone] Encounter Details Date Type Department Care Team Description 01/05/2023 Telephone Gastroenterology, [facility] [address] [place] [address] Yazmin Mast CRNP [address] [place] [address] Allergies No known active allergiesdocumented as of this encounter (statuses as of 01/05/2023) Medications Medication Sig Dispensed Refills Start Date [...] as of this encounter (statuses as of 01/05/2023) Active Problems Problem Noted Date Body mass index (BMI) of 45.0 to 49.9 in adult 04/04/2019 Overview: Per Obesity protocol Dyslipidemia, goal LDL below 130 documented as of this encounter (statuses as of 01/05/2023) Resolved Problems Problem Noted Date Resolved Date Obesity, morbid (more than 1 00 lbs over ideal weight or BMI > 40) 01/08/2010 04/08/2019 Overview: Per Obesity Protocol, #19 ICD-10 update of inactive term Dyslipidemia, goal LDL below 100 09/15/2014 Obesity 04/08/2019 Overview: Per Obesity protocol documented as of this encounter (statuses as of 01/05/2023) Immunizations Name Administration Dates Next Due Seasonal [...] encounter Miscellaneous Notes * Telephone Encounter - John Cantu, ROMANA - 01/05/2023 12:49 PM EDT Please review [...] pancreas documented in this encounter Care Teams Online Community Manager Relationship Specialty Start Date End Date Vanesa Solorzano, [address] [place] [address] PCP - General Family Medicine 09/21/18 documented as of this encounter
--- OUTSIDE RECORDS SUMMARY | 2023-04-06 06:21 | External Medical Summary | Summary of Care ---
Author Name Unknown Organization [facility] Address [address] [place] [address] Phone [phone] Care Team Providers Care Noc Technician Name Role Phone Vanesa Solorzano Primary Care Provider [phone] Reason for Referral * Evaluate & Treat - Unlimited Visits (Within 10 days (routine)) - Pending Review Specialty Diagnoses / Procedures Referred By Contac t Referred To Contact Neurology Diagnoses Acute CVA (cerebrovascular accident) (HCC) Anna Jamil MD [address] [place] [address] Referral ID Status Reason Start Date Expiration Date Visits Requested Visits Authorized [id number] Pending Review Specialty Services Required 01/26/[phone] Question Answer Referral Priority Within 10 days (routine) [facility] NEUROLOGY REFERRAL QUESTIONS Stroke Does the patient's condition allow them to wait to be seen by a specialist or should they be seen by first available provider? Or is this a follow up with established provider? First Available * Evaluate & Treat - Unlimited Visits (Within 30 days (routine)) - Pending Review Specialty Diagnoses / Procedures Referred By Contact Referred To Contact Cardiovascular Medicine / Cardiology Diagnoses Paroxysmal atrial flutter (HCC) Anna Jamil MD [address] [place] [address] Referral ID Status Reason Start Date Expiration Date Visits Requested Visits Authorized [id number] Pending Review Specialty Services Required 01/26/[phone] Question Answer Referral Priority Within 30 days (routine) To which of the following clinics are you referring your patient? Arrhythmia/Electrophysiology Clinic Reason for Visit * Reason Onset Date Comments Hospital Follow-Up Hospital f/u from stroke Hospital Follow-Up 01/26/2023 Encounter Details Date Type Department Care Team Description 01/26/2023 Office Visit [facility] [address] [place] [address] Anna Jamil MD [address] [place] [address] Hospital discharge follow-up*; Postmenopausal bleeding; Acute CVA (cerebrovascular accident) (HCC); Acute left hemiparesis (HCC); Mass of pancreas; Paroxysmal atrial flutter (HCC) Allergies No known active allergiesdocumented as of this encounter (statuses as of 01/26/2023) Medications Medication Sig Dispensed Refills Start Date End Date Status TYLENOL 325 MG PO TABS uses as needed 0 Active Nitroglycerin 0.3 MG Sublingual Tablet Sublingual (NITROSTAT)Indica [...] 01/20/2023 Active Apixaban 5 MG Oral Tablet (Eliquis)Indicati ons:Acute CVA (cerebrovascular accident) (HCC),Paroxysmal atrial flutter (HCC) Take 1 Tablet by mouth in the morning and 1 Tablet before bedtime. 60 Tablet 11 01/26/2023 Active Simethicone 125 MG Oral Capsule Take 1 Capsule by mouth. 0 Active clonazePAM 0.5 MG Oral Tablet (KlonoPIN)Indicat ions:Stress due to illness of family member Take 1 Tab by mouth 2 times a day as needed for Anxiety or Insomnia. 30 Tab 0 05/31/2020 3 Discontinued(Cherri ent preference/discon tinuation) Meloxicam 7.5 MG Oral TabletIndications :Arthritis of right ankle TAKE 1 TAB BY MOUTH DAILY. FOR PAIN. 90 Tab 1 03/11/2021 3 Discontinued(Medi cation/Dose Changed) Aspirin 81 MG Oral Tablet Delayed Release (Aspirin 81) Take 1 Tablet by mouth in the morning. 0 3 Discontinued Atorvastatin Calcium 40 MG Oral Tablet (Lipitor) Take 1 Tablet by mouth in the morning. 0 3 Discontinued losartan 12.5 MG OR TABS Take by mouth daily. 0 3 Discontinued Metoprolol Succinate 25 MG Oral Capsule ER 24 Hour Sprinkle Take by mouth. 0 3 Discontinued documented as of this encounter (statuses as of 01/26/2023) Active Problems Problem Noted Date Acute CVA (cerebrovascular accident) 09/2022 Anxiety 01/26/2023 Elevated troponin 01/26/2023 Genetic carrier status 01/26/2023 Intermittent abdominal pain 01/26/2023 Mass of pancreas 01/26/2023 Paroxysmal atrial flutter 01/26/2023 SVT (supraventricular tachycardia) 01/26 Vaginal bleeding 01/26/2023 Weakness 01/26/2023 Acute left hemiparesis 01/26/2023 Obesity, morbid, BMI 40.0-49.9 9 Overview: Per Obesity protocol documented as of this encounter (statuses as of 01/26/2023) Resolved Problems Problem Noted Date Resolved Date Obesity, morbid (more than 1 00 lbs over ideal weight or BMI > 40) 01/08/2010 04/08/2019 Overview: Per Obesity Protocol, #19 ICD-10 update of inactive term Dyslipidemia, goal LDL below 100 09/15/2014 Obesity 04/08/2019 Overview: Per Obesity protocol documented as of this encounter (statuses as of 01/26/2023) Immunizations Name Administration Dates Next Due COVID-19 [...] Sign Reading Time Taken Comments Blood Pressure 115/58 01/26/2023 1:53 PM EDT Pulse 84 01/26/2023 1:53 PM EDT Temperature 36.1 C (96.9 F) 01/26/2023 1:53 PM ED T Respiratory Rate 16 01/26/2023 1:53 PM EDT Oxygen Saturation 96% 01/26/2023 1:53 PM EDT Inhaled Oxygen Concentration - - Weight 115.5 kg (254 lb 9.6 oz) 01/26/2023 1:53 PM EDT Height 162.6 cm (5' 4") 01/26/2023 1:53 PM EDT Body Mass Index 43.7 01/26/2023 1:53 PM EDT documented in this encounter Progress Notes * Anna Lilian Chipe Omero, MD - 01/26/2023 1:52 PM EDT ASSESSMENT / PLAN: Jacque Spivey is a 62 year old female with PMHx obesity / anxiety - Here for PETEY - Here for PETEY - admitted at [facility] from 01/02 - 01/08 / [facility] 01/08 - 01/21/23 Diagnosis: acute onset left sided weakness and left sided hand paresthesias / CVA Diagnostics: CT head and neck neg CT angio head and neck unremarkable MRI brain right parietotemporal stroke - no hemorrhage GILBERTO EF 60-65% Telemetry - atrial flutter - which is thought to have caused cardioembolic stroke Hospital stay complicated by: 1- atrial flutter - metoprolol increased, eliquis 2- incidentally noted pancreatic mass - 4.3cm ill defined pancreatic head mass - suspicious for adenocarcinoma - has upcoming EGD 3- vaginal bleeding - transvag U/S + endometrial thickening - has upcoming appt with [facility] 01/30/23 Treatments / Consultation(s): 1- Teleneurology - recommended TNK however pt declined so was treated with full dose aspirin 2-cardio - elev troponin (255.6), with atrial flutter on telemetry - cont ASA, transition to Eliquis in 2 week (to prev hemorrh transf) 3 - GI - to follow up with EGD / EUS with [facility] (scheduled 02/06) for further eval pancreatic mass ++ changes to chronic medications. 1 - ASA x 2 weeks, then start eliquis 2 - Metoprolol 25mg daily 3- lipitor 40mg once daily Hospital discharge follow-up (Primary) - DISCH MED RECON CUR MED LIS - RETURN TO WORK OR SCHOOL Postmenopausal bleeding - DISCH MED RECON CUR MED LIS - RETURN TO WORK OR SCHOOL Acute CVA (cerebrovascular accident) (HCC) - DISCH MED RECON CUR MED LIS - NEUROLOGY REFERRAL OP - Apixaban 5 MG Oral Tablet (Eliquis); Take 1 Tablet by mouth in the morning and 1 Tablet before bedtime. - RETURN TO WORK OR SCHOOL Acute left hemiparesis (HCC) - DISCH MED RECON CUR MED LIS - RETURN TO WORK OR SCHOOL Mass of pancreas - DISCH MED RECON CUR MED LIS - RETURN TO WORK OR SCHOOL Paroxysmal atrial flutter (HCC) - DISCH MED RECON CUR MED LIS - CARDIOLOGY REFERRAL OP - Apixaban 5 MG Oral Tablet (Eliquis); Take 1 Tablet by mouth in the morning and 1 Tablet before bedtime. - RETURN TO WORK OR SCHOOL Check-out note: Please schedule a follow up with Vanesa Solorzano in the next 3 months if possible, she's overdue for a visit. If needed, prefers contact by: Ok to leave message on phone: SUBJECTIVE: Nursing Notes: Lea Dill, [facility] 01/26/23 1354 Signed Jacque Spivey is a 62 year old female who presents today for Chief Complaint Patient presents with Hospital Follow-Up Hospital f/u from stroke HPI: Jacque Spivey is a 62 year old female. - Here for PETEY - admitted at [facility] from 01/02 - 01/08 - 01/21/23 Diagnosis: acute onset left sided weakness and left sided hand paresthesias / CVA Pt is over all improving. Tearful at times, laughing at other times. accompanies her today.They understand hospital stay. Need referrals for cardiology and neuro, as well as help with handicapped placard. Patient Active Problem List Diagnosis Code Obesity, morbid, BMI 40.0-49.9 ([facility]) E66.01 Acute CVA (cerebrovascular accident) ([facility]) I63.9 Anxiety F41.9 Elevated troponin R77.8 Genetic carrier status Z14.8 Intermittent abdominal pain R10.9 Mass of pancreas K86.89 Paroxysmal atrial flutter ([facility]) I48.92 SVT (supraventricular tachycardia) ([facility]) I47.1 Vaginal bleeding N93.9 Weakness R53.1 Acute left hemiparesis ([facility]) G81.94 Current Outpatient Medications Medication Sig Dispense Refill TYLENOL 325 MG PO TABS uses as needed Nitroglycerin 0.3 MG Sublingual Tablet Sublingual (NITROSTAT) Place 1 Tab under the tongue as needed for Pain, Chest. May repeat 3 times. If chest pain continues, call 911. 72 Tab 11 Pantoprazole Sodium 40 MG Oral Tablet Delayed Release (Protonix) Take 1 Tablet by mouth in the morning. Aspirin 81 MG Oral Tablet Delayed Release 1 Tablet. Apixaban 5 MG Oral Tablet (Eliquis) Take 1 Tablet by mouth in the morning and 1 Tablet before bedtime. 60 Tablet 11 Simethicone 125 MG Oral Capsule Take 1 Capsule by mouth. Losartan Potassium 50 MG Oral Tablet (Cozaar) Take 1 Tablet by mouth in the morning and 1 Tablet before bedtime. Metoprolol Succinate ER 25 MG Oral Tablet Extended Release 24 Hour (toPROL XL) Take 1 Tablet bymouth in the morning. No current facility-administered medications for this visit. OBJECTIVE: BP 115/58 (BP Site: Right Arm, BP Position: Sitting, BP Cuff Size: Regular) | Pulse 84 | Temp 36.1 C (96.9 F) (Temporal Artery) | Resp 16 | Ht 1.626 m (5' 4") | Wt 115.5 kg (254 lb 9.6 oz) | DnY090% | BMI 43.70 kg/m | BSA 2.28 m Vitals reviewed and is normotensive / afebrile / and not tachycardic General: No acute distress. Neuro: MENTAL STATUS: Awake and Alert. Speech fluent and appropriate without dysarthria. Cognition and memory grossly intact. Attention intact. No neglect. CRANIAL NERVES: EOMI. Facial sensation intact to light touch. Facial muscles full and symmetric. Hearing intact to conversation. Shoulder shrug normal. Tongue midline. MOTOR: Normal bulk and tone. BUE strength 5/5 at deltoids, biceps, triceps, and hand grasp bilaterally. BLE strength 5/5 at iliopsoas, hamstrings, quadriceps, tibialis anterior, and gastrocnemius bilaterally. SENSORY: Intact to light touch without extinction to double simultaneous stimuli. Less sensation onleft lower extremity reported. GAIT: Normal gait. Respiratory: Good inspiratory effort, no labored breathing. CTAB CV: RRR no M R G HEENT: Conjunctivae appear clear. No swelling noted face or lips. Skin: No rash visible on exposed skin areas, normal coloration & appears dry. Psych: Normal affect. Fluent speech. Anna Jamil MD [address] [address] There are no Patient Instructions on file for this visit. documented in this encounter Nursing Notes * JONNY Martel - 01/26/2023 1:52 PM EDT Jacque Spivey is a 62 year old female who presents today for Chief Complaint Patient presents with Hospital Follow-Up Hospital f/u from stroke documented in this encounter Plan of Treatment Upcoming Encounters Date Type Specialty Care Team Description 01/30/2023 Office Visit Gynecology Obstetrics Nida Borden CRNP [address] [place] [address] 02/06/2023 Procedure Only Endoscopy Odilia Ring DO [address] [place] [address] 04/01/2023 Office Visit Cardiology Nikole Wiley IV, MD [address] [place] [address] 04/29/2023 Office Visit Family Medicine Vanesa Solorzano, [address] [place] [address] 04/29/2023 Office Visit Gastroenterology Amberly Turner CRNP [address] [place] [address] 07/17/2023 Office Visit Neurology Conchita Cabrera MD [address] [place] [address] Scheduled Referrals Name Type Priority Associated Diagnoses Orde r Schedule CARDIOLOGY REFERRAL OP Referral Within 30 days (routine) Paroxysmal atrial flutter (HCC) Ordered: 01/26/2023 NEUROLOGY REFERRAL OP Referral Within 10 days (routine) Acute CVA (cerebrovascular accident) (HCC) Ordered: 01/26/2023 Health Maintenance Due Date Last Done Comments [...] Additional history exists Influenza Vaccine (FLU shot) (#1) 2023 05/31/2020, 08/06/2018, 05/04/2013 DTaP,Tdap,and Td Vaccines (2 - Td or Tdap) 05/04/2023 05/04/2013, 09/12/2003 Colonoscopy 03/09/2024 03/09/2014, 02/24, 11/15/2013, Additional history exists Colorectal Cancer Screening 03/09/2024 Diabetes Screening 01/16/2026 01/16/2023, 0 01/09/2023, 05/31/2020, Additional history exists GARDASIL-HPV IMMUNIZATION SERIES Aged [...] as of this encounter Visit Diagnoses Diagnosis Hospital discharge follow-up- Primary Other follow-up examination Postmenopausal bleeding Acute CVA (cerebrovascular accident) (HCC) Acute left hemiparesis (HCC) Hemiplegia, unspecified, affecting unspecified side Mass of pancreas Unspecified disease of pancreas Paroxysmal atrial flutter (HCC) Atrial flutter documented in this encounter Care Teams Noc Technician Relationship Specialty Start Date End Date Vanesa Solorzano, DO [address] [place] [address] PCP - General Family Medicine 09/21/18 documented as of this encounter
--- OUTSIDE RECORDS SUMMARY | 2023-04-06 06:21 | External Medical Summary | Summary of Care ---
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 [facility] [address] Abnormal uterine bleeding (AUB)* Allergies No known active allergiesdocumented as of [...] times. If chest pain continues, call 911. 53 Tab 11 05/31/2020 Active Pantoprazole Sodium 40 [...] of 02/04/2023) Active Problems Problem Noted Date Acute CVA [...] mRNA, LNP-s, No Pre serve, 2-Dose Series (JayCut) 10/16/2020,09/25/2020 Seasonal Influenza, Quadriva lent, No Preserve, [...] Sign Reading Time Taken Comments Blood Pressure 120/62 01/30/2023 2:57 PM EDT Pulse - - Temperature - - Respiratory Rate - - Oxygen Saturation - - Inhaled Oxygen Concentration - - Weight - - Height 162.6 cm (5' 4") 01/30/2023 2:57 PM EDT Body Mass Index - - documented in this encounter Progress Notes * TYLER Ag - 01/30/2023 2:44 PM EDT HPI: The patient is a 62 year old who presents for bleeding. She was seen at [facility] ER on 01/02 with left sided weakness, abdominal pain - records reviewed. Diagnosed with CVA. Had post-hospitalization follow up with her PCP on 01/26. While hospitalized, she also reported an episode of passing a large blood clot vaginally about a year prior; she was following with her PCP for this, but it was precluded by more acute symptoms of chest pain/SOB. No follow up since. Still reports 2 days of spotting, about once a month. Does not feel she is truly post-menopausal - has never gone 12 months without a period. When she had her episode of bleeding in October 2021, she had been without a period for 10 months. She reports having significant hot flashes during her recent hospitalization. No estradiol/FSH levels to review. Pelvic u/s in the ER showed endometrial thickness of 1.6 cm, unable to visualize ovaries, no myometrial mass/lesion. Last pap was in 2016 - negative. Reports a normal pap hx. No family hx of dermatologist managing partner cancer. She is taking Eliquis, ASA. OB HISTORY: OB History Para Term AB Living 2 0 0 2 SAB IAB Ectopic Multiple Live Births 2 # Outcome Date GA Lbr Keyur/2nd Weight Sex Delivery Anes PTL Lv 2 11/17/95 40w0d 4.082 kg (9 lb) M NORMAL SPONT ARIANE Comments: 3rd trimester HTN 1 11/13/87 42w0d 3.118 kg (6 lb 14 oz) F NORMAL SPONT ARIANE Comments: 3rd trimester HTN Past Medical History: Diagnosis Date Acute CVA (cerebrovascular accident) ([facility]) 01/26/2023 Acute left hemiparesis ([facility]) 01/26/2023 Anxiety 01/26/2023 Dyslipidemia, goal LDL below 130 Gestational hypertension Mass of pancreas 01/26/2023 Obesity, morbid, BMI 40.0-49.9 ([facility]) 04/04/2019 Per Obesity protocol Other screening mammogram 03/10/2005 wnl per [facility] at Paroxysmal atrial flutter ([facility]) 01/26/2023 SVT (supraventricular tachycardia) ([facility]) 01/26/2023 Past Surgical History: Procedure Laterality Date COLONOSCOPY, DIAGNOSTIC (RECTUM) 11/15/2013 perianal and digital rectal exam normal, severe stenosis found at 35 cm proximal to the anus and was non-transversed, stricture at 35 cm in colon, CT scan abd/pelvis/COLONOSCOPY FLEXIBLE PROXIMAL DIAGNOSTIC performed by You Gregory MD at ENDOSCOPY [facility] COLONOSCOPY, DIAGNOSTIC (RECTUM) 03/09/2014 COLONOSCOPY FLEXIBLE PROXIMAL DIAGNOSTIC performed by Susu Whittington MD at ENDOSCOPY [facility] LIGATE/CUT OVIDUCT(S) MAMMOGRAM - 1 BREAST [facility] - 1 BREAST 08/26/04 [facility] per /[facility] MAMMOGRAM - BILATERAL 03/14/08 wnl MAMMOGRAM SCREENING BILATERAL 05/07/09 wnl- REMOVAL OF APPENDIX 1975 Current Outpatient Medications Medication Sig Dispense Refill TYLENOL 325 MG PO TABS uses as needed Nitroglycerin 0.3 MG Sublingual Tablet Sublingual (NITROSTAT) Place 1 Tab under the tongue as needed for Pain, Chest. May repeat 3 times. If chest pain continues, call 911. 66 Tab 11 Pantoprazole Sodium 40 MG Oral Tablet Delayed Release (Protonix) Take 1 Tablet by mouth in the morning. Aspirin 81 MG Oral Tablet Delayed Release 1 Tablet. Losartan Potassium 50 MG Oral Tablet (Cozaar) Take 1 Tablet by mouth in the morning and 1 Tablet before bedtime. Metoprolol Succinate ER 25 MG Oral Tablet Extended Release 24 Hour (toPROL XL) Take 1 Tablet bymouth in the morning. Apixaban 5 MG Oral Tablet (Eliquis) Take 1 Tablet by mouth in the morning and 1 Tablet before bedtime. 60 Tablet 11 Simethicone 125 MG Oral Capsule Take 1 Capsule by mouth. No current facility-administered medications for this visit. Review of patient's allergies indicates: No Known Allergies ROS EXAM: per HPI PHYSICAL EXAM BP 120/62 | Ht 1.626 m (5' 4") | BMI 43.70 kg/m | BSA 2.28 m Library Sales Consultant Documentation Provider requested head boys golf coach. Name of head boys golf coach: Cammy Livingston LPN General: alert and anxious Abdomen: abdomen soft, non-tender, obese Pelvic Exam: External genitalia and vagina anatomy within normal limits, No significant vulvar lesions, No significant vaginal discharge, Cervix normal in appearance without lesions or purulent discharge. Uterus non-tender, exact size not appreciated due to habitus. Unable to palpate adnexa, non-tender. IMPRESSION: 1. Abnormal uterine bleeding (AUB) Questionable menopause status as she denies having 12 consecutive months of amenorrhea. Discussed u/s findings of thickened endometrium and recommend EMB, pap today. Follow up pending results. Pt to seek immediate medical care for bleeding that saturates a pad in <1 hr or severe abdominal pain. With pt's permission, plan of care discussed with spouse. - SURGICAL PATHOLOGY - EXECUTIVE TEAM LEADER PAP DIAGNOSTIC A ''time out'' was initiated by TYLER Kaminski prior to procedure.The patient was identified by name and date of . The correct procedure, and correct site identified. Correct positioning (as applicable). There is availability of necessary equipment. Patient states she is not allergic to latex. Cervix visualized and prepped with Betadine. Anterior lip of the cervix grasped with single tooth tenaculum. Pipelle easily introduced into cervical canal and minimal amounts of tissue obtained and sent to pathology. Uterus sounded to 9 cm. Patient tolerated procedure well. Minimal bleeding noted at end of procedure. Post-procedure instructions reviewed. TYLER Kaminski documented in this encounter Nursing Notes * Cammy Livingston LPN - 01/30/2023 2:52 PM EDT Pt is here for PMB Had heavy vb that was running down her legs felt like she birthed her first child from the clot that she passed started after 2nd covid injection 10/2021 Did have minimal spotting 5 yrs prior to heavy VB Now has spotting monthly documented in this encounter Plan of Treatment Upcoming Encounters Date Type Specialty Care Team Description 02/06/2023 Procedure Only Endoscopy Odilia Ring DO [address] [place] [address] 02/13/2023 Office Visit Neurology Conchita Cabrera MD [address] [place] [address] 02/19/2023 Office Visit Cardiology Salbador Galvin CRNP [address] [place] [address] 04/29/2023 Office Visit Family Medicine Vanesa Solorzano DO [address] [place] [address] 04/29/2023 Office Visit Gastroenterology Amberly Turner CRNP [address] [place] [address] Health Maintenance Due Date Last Done Comments [...] Procedure Name Priority Date/Time Associated Diagnosis Comments HUMAN PAPILLOMA VIRUS, PROBE Routine 01/30/2023 3:23 PM EDT Abnormal uterine bleeding (AUB) EXECUTIVE TEAM LEADER PAP DIAGNOSTIC Routine 01/30/2023 3: 23 PM EDT Abnormal uterine bleeding (AUB) SURGICAL PATHOLOGY Routine 01/30/2023 3: 23 PM EDT Abnormal uterine bleeding (AUB) documented in this encounter Results * HUMAN PAPILLOMA VIRUS, PROBE (01/30/2023 3:23 PM EDT) Human Papilloma Virus Result Negative Not Applicable 02/04/2023 12:30 PM EDT LABORATORY [facility] Comment: No high/intermediate-risk Human Papillomavirus (HPV E6/E7 messenger RNA) detected by nucleic acid amplification. This assay looks for high/intermediate risk Human Papillomavirus (HPV E6/E7 messenger RNA) by nucleic acid amplification. This assay includes the qualitative detection of HPV types 16,18,31,33,35,39,45,51,52,56,58,59,66 and 68 from cervical specimens. This assay has been FDA cleared for Thin prep collection vials. This assay has not been approved for use as a primary screening test for HPV and should be tested in conjunction with a PAP screen. If collected utilizing a Surepath vial, the collection and specimen preparation of this test was developed, and its performance characteristics determined by [facility]. It has not been cleared or approved by the U.S. Food and Drug Administration (FDA). The FDA has determined that such clearance or approval is not necessary. This assay has been performed at [facility], [address] [place] [address]. [id number]. Pap Test Specimen from wound / Unknown 01/30/2023 3:23 PM EDT 02/02/2023 5:53 AM EDT Nida SCOTT [facility] MICRO - GENERAL ORDERABLES LABORATORY [address] [address] * EXECUTIVE TEAM LEADER PAP DIAGNOSTIC (01/30/2023 3:23 PM EDT) Final Diagnosis A. Cervix, SurePath Pap test: Adequacy: Satisfactory for evaluation; transformation zone present. Interpretation: Negative for Intraepithelial lesion or malignancy (Napoleon System). AUTOMATED REVIEW: Focal Point computerized screening device (quintile 1, review). 02/04/2023 12:30 PM EDT LABORATORY [facility] Performing Labs Php Mysql Developer screening performed at [facility] ([facility]), [address] [place] [id number]. Php Mysql Developer rescreening performed at [facility] ([facility]), [address] [place] [address]. 02/04/2023 12:30 PM EDT LABORATORY [facility] Gross Description A. Cervix. SurePath vial received labeled with the patient's identification. 02/04/2023 12:30 PM EDT LABORATORY [facility] EDUCATIONAL NOTE: The Pap test (thin-layer cervical screening specimen) is a screening test that aids in the detection of cervical cancer and cancer precursors. Both false positive and false negative results can occur. The test should be used at regular intervals (as per the ASCCP guidelines) and positive results should be confirmed before definitive therapy. Discrepancies between the Pap test findings and clinical impressions should be resolved with diagnostic tests such as colposcopy and biopsy. 02/04/2023 12:30 PM EDT LABORATORY [facility] Case Report Gynecologic Cytology Report Case: [id number] Authorizing Provider: Nida Borden, Collected: 01/30/2023 03:23 PM TYLER Ordering Location: Gynecology/Obstetr ics Received: 01/30/2023 03:23 PM [facility] First Screen: DAMARIS Yee(ASCP) Rescreen: DAMARIS Gibbons(ASCP) Specimen: SurePath Pap test, Cervix 02/04/2023 12:30 PM EDT LABORATORY [facility] PAP Indication for Procedure: Vaginal bleeding 02/04/2023 12:30 PM EDT LABORATORY [facility] PAP Previous Cancer: None 02/04/2023 12:30 PM EDT LABORATORY [facility] HPV Permissions: HPV Regardless (Including cotest) 02/04/2023 12:30 PM EDT LABORATORY [facility] PAP Contraceptive History: None 02/04/2023 12:30 PM EDT LABORATORY [facility] Pap Test Specimen from wound / Unknown 01/30/2023 3:23 PM EDT 01/30/2023 3:23 PM EDT Nida SCOTT LAB CYTOLOG Y ORDERABLES LABORATORY [facility] [address] [place] [address] * SURGICAL PATHOLOGY (01/30/2023 3:23 PM EDT) Final Diagnosis A. 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 -- See comment. Comment: Mismatch repair testing will be reported in a procedures addendum. 02/03/2023 4:12 PM EDT LABORATORY [facility] Clinical History AUB, thickened endometrium 02/03/2023 4:12 PM EDT LABORATORY [facility] Gross Description A. Endometrium. Endometrial biopsy/curetting Received in formalin with a container labeled with "Jacque Spivey", "[id number]", "1960" and " endometrium". Received is a 2.3 x 1.2 x 0.3 cm aggregate of soft pink-red tissue admixed with mucus and clotted blood. The specimen is submitted entirely in cassette A1-A2. Gross By: KB 02/03/2023 4:12 PM EDT LABORATORY [facility] Microscopic Description A microscopic examination was performed. Antibody Result in this case Application PAX2 Aberrant loss Aberrant loss in EIN and carcinoma PTEN Aberrant loss Aberrant loss in EIN and carcinoma p16 Patchy staining Patchy staining in endometrial carcinoma p53 Wild-type Detects mutant p53 protein expression HNF1b No significant expression Positive in clear cell carcinoma Ki-67 High proliferation rate Proliferation marker Estrogen receptor Strong positive Detects estrogen receptor expression 02/03/2023 4:12 PM EDT LABORATORY [facility] Sign Out Location Pathologist sign out performed at [facility] ([facility]), [address] [place] [address]. 02/03/2023 4:12 PM EDT LABORATORY [facility] Photographic images and diagrams represent lee findings in this case; they are not intended to replace a complete review of the final diagnostic report. The following statement applies to Flow Cytometry, Histology, In situ Hybridization Assays and Molecular Genetics. This test was developed and performed at [facility] and its performance characteristics determined by [facility]. It has not been cleared or approved by the U.S. Food and Drug Administration. The FDA has determined that such clearance or approval is not necessary. This test is used for clinical purposes. It should not be regarded as investigational or for research. Special stains, including histochemical stains, and studies using immunologic and NELDA methodology (where applicable) are performed with appropriate positive and negative control reactions. 02/03/2023 4:12 PM EDT LABORATORY GM Tissue Entire endometrium / Unknown Non-blood Collection / Unknown 01/30/2023 3:23 PM EDT 01/30/2023 3:23 PM EDT Nida Munoz Backer TYLER LAB PATHOLO GY ORDERABLES LABORATORY [facility] [address] [place] [address] documented in this encounter Visit Diagnoses Diagnosis Abnormal uterine bleeding (AUB)- Primary documented in this encounter Care Teams Mine Equipment Design Engineer Relationship Specialty Start Date End Date Vanesa Solorzano, [address] [place], [place] [phone] PCP - General Family Medicine 09/21/18 documented as of this encounter
--- OUTSIDE RECORDS SUMMARY | 2023-04-06 06:21 | External Medical Summary ---
Author Name Unknown Address Unknown Organization [id number]:[facility] [place] [address] Laboratory Report Ordering Provider Test Date Status KAPIL VACA 01/16/2023 05:55:00 Final Observation Date Value Abnormality Reference (Units ) Status BUN 01/16/2023 05:55:00 19 6-20 (mg/dL) Final Creatinine 01/16/2023 05:55:00 0.7 0.5-1.0 (mg/dL) Final Glomerular filtration rate/1.73 sq M.predicted [Volume Rate/Area] in Serum, Plasma or Blood by Creatinine-based formula (CKD-EPI) 01/16/2023 05:55:00 >90 >=60 (mL/min) Final Performing Location [facility] [place] [address]
--- OUTSIDE RECORDS SUMMARY | 2023-04-06 06:21 | External Medical Summary ---
Author Name Unknown Address Unknown Organization K01:[facility] [place] [address] [place] [address] Laboratory Report Ordering Provider Test Date Status FRANCESCO CRUM 01/30/2023 15:23:00 Final Observation Date Value Abnormality Reference (Units ) Status Human papilloma virus E6+E7 mRNA [Presence] in Cervix by NEDA with probe detection 01/30/2023 15:23:00 Negative Not Applicable Final Performing Location [facility] [place] [address] [place] [address]
--- OUTSIDE RECORDS SUMMARY | 2023-04-06 06:21 | External Medical Summary | Summary of Care ---
Author Name Unknown Organization [facility] Address [address] [place] [address] Phone [phone] Care Team Providers Care Silk Snapper Name Role Phone JasperVanesa noble Primary Care Provider Encounter Details Date Type Department Care Team Description 02/09/2023 Telephone Gynecology/Obstetrics [facility] [address] [place] [address] Bj Ramirez MD [address] [place] [address] Allergies No known active allergiesdocumented as of this encounter (statuses as of 02/09/2023) Medications Medication Sig Dispensed Refills Start Date [...] as of this encounter (statuses as of 02/09/2023) Active Problems Problem Noted Date Endometrial cancer 02/04/2023 Acute CVA (cerebrovascular accident) 09/2022 Anxiety 01/26/2023 Elevated troponin 01/26/2023 Genetic carrier status 01/26/2023 Intermittent abdominal pain 01/26/2023 Mass of pancreas 01/26/2023 Paroxysmal atrial flutter 01/26/2023 SVT (supraventricular tachycardia) 01/26 Weakness 01/26/2023 Acute left hemiparesis 01/26/2023 Obesity, morbid, BMI 40.0-49.9 9 Overview: Per Obesity protocol documented as of this encounter (statuses as of 02/09/2023) Resolved Problems Problem Noted Date Resolved Date Obesity, morbid (more than 1 00 lbs over ideal weight or BMI > 40) 01/08/2010 04/08/2019 Overview: Per Obesity Protocol, #19 ICD-10 update of inactive term Dyslipidemia, goal LDL below 100 09/15/2014 Obesity 04/08/2019 Overview: Per Obesity protocol documented as of this encounter (statuses as of 02/09/2023) Immunizations Name Administration Dates Next Due COVID-19 mRNA, LNP-s, No Pre serve, 2-Dose Series (Zolpy) 10/16/2020,09/25/2020 Seasonal Influenza, Quadriva lent, No Preserve, [...] encounter Miscellaneous Notes * Telephone Encounter - Kym Beasley RN - 02/09/2023 4:55 PM EDT Patient calling in states that patient was d/c from [facility] today and that she was to have 3 days of antibiotics sent to [facility]. Patient could not tell me which antibiotic. Patient information not in [facility] chart yet from [facility]. Per patient , he spoke to the nurse that discharged her and told them that patient was to call our office and get the medication sent to pharmacy. I called and spoke to Dr. Ramirez who is electronic scale subassembler. He states he is going to look patient information up on [facility] charts and have the patient's doctor send in the medication. He states he did notsend anything in for patient. Dr. Ramirez given patient's 's number. documented in this encounter Plan of Treatment Upcoming Encounters Date Type Specialty Care Team Description 02/12/2023 Office Visit Family Medicine Estrada Haro MD [address] [place], [place] [phone] 02/13/2023 Office Visit Neurology Conchita Cabrera MD [address] [place] [address] 02/19/2023 Office Visit Cardiology Salbador Galvin CRNP [address] [place] [address] 04/29/2023 Office Visit Family Medicine Vanesa Solorzano DO [address] [facility] [place] [address] 04/29/2023 Office Visit Gastroenterology Amberly Turner CRNP [address] [place] [address] Health Maintenance Due Date Last Done Comments [...] filedocumented as of this encounter Care Teams Silk Snapper Relationship Specialty Start Date End Date Vanesa Solorzano, DO [address] [place] [address] PCP - General Family Medicine 09/21/18 documented as of this encounter
--- OUTSIDE RECORDS SUMMARY | 2023-04-06 06:21 | External Medical Summary | Summary of Care ---
Author Name Unknown Organization [facility] Address [address] [place] [address] Phone [phone] Care Team Providers Care Train Gateman Name Role Phone Vanesa Solorzano Primary Care Provider [phone] Encounter Details Date Type Department Care Team Description 01/05/2023 Telephone Gastroenterology, [facility] [address] [place] [address] Yazmin Mast CRNP [address] [place] [address] Allergies No known active allergiesdocumented as of [...] * Telephone Encounter - ROMANA Ordaz - 01/06/2023 3:06 PM EDT Spoke to pt, EUS scheduled on 02/06 leo ring at [place] Instructions mailed * Telephone Encounter - TYLER Bernal - [...] Ring, DO [address] [place] [address] Scheduled Orders Name Type Priority Associated Diagnoses [...] pancreas documented in this encounter Care Teams Train Gateman Relationship Specialty Start Date End Date Vanesa Solorzano, [address] [place], [place] [phone] PCP - General Family Medicine 09/21/18 documented as of this encounter
--- OUTSIDE RECORDS SUMMARY | 2023-04-06 06:21 | External Medical Summary | Summary of Care ---
Author Name Unknown Organization [facility] Address [address] [place] [address] Phone [phone] Care Team Providers Care Tie Maker Name Role Phone Vanesa Solorzano Primary Care Provider [phone] Encounter Details Date Type Department Care Team Description 01/08/2023 Result Scan Unspecified Department Valdemar Urban, [address] [place] [address] <No scans attached> Allergies No known active allergiesdocumented as of this encounter (statuses as of 01/09/2023) Medications Medication Sig Dispensed Refills Start Date [...] as of this encounter (statuses as of 01/09/2023) Active Problems Problem Noted Date Body mass index (BMI) of 45.0 to 49.9 in adult 04/04/2019 Overview: Per Obesity protocol Dyslipidemia, goal LDL below 130 documented as of this encounter (statuses as of 01/09/2023) Resolved Problems Problem Noted Date Resolved Date Obesity, morbid (more than 1 00 lbs over ideal weight or BMI > 40) 01/08/2010 04/08/2019 Overview: Per Obesity Protocol, #19 ICD-10 update of inactive term Dyslipidemia, goal LDL below 100 09/15/2014 Obesity 04/08/2019 Overview: Per Obesity protocol documented as of this encounter (statuses as of 01/09/2023) Immunizations Name Administration Dates Next Due Seasonal [...] Description 02/06/2023 Procedure Only Endoscopy Odilia Ring, [address] [place] [address] Health Maintenance Due Date Last Done Comments [...] 05/31/2025 05/31/2020, 10/2018, 09/26/2016, Additional history exists Diabetes Screening 01/09/2026 01/09/2023, 1 07/31/2019, 09/27/2018, Additional history exists GARDASIL-HPV IMMUNIZATION SERIES Aged [...] Date/Time Associated Diagnosis Comments ECHOCARDIOLOGY SCANNED RESULT 01/08/2023 documented in this encounter Results * ECHOCARDIOLOGY SCANNED RESULT (01/08/2023) 01/08/2023 Valdemar Urban DO ECHOCARDIOLOGY documented in this encounter Care Teams Tie Maker Relationship Specialty Start Date End Date Vanesa Solorzano DO [address] [place], [place] [phone] PCP - General Family Medicine 09/21/18 documented as of this encounter
--- OUTSIDE RECORDS SUMMARY | 2023-04-06 06:21 | External Medical Summary ---
Author Name Unknown Address Unknown Organization K09:[facility] [place] [address] Laboratory Report Ordering Provider Test Date Status KAPIL VACA 01/09/2023 04:50:00 Final Observation Date Value Abnormality Reference (Units ) Status BUN 01/09/2023 04:50:00 11 6-20 (mg/dL) Final Creatinine 01/09/2023 04:50:00 0.6 0.5-1.0 (mg/dL) Final Glomerular filtration rate/1.73 sq M.predicted [Volume Rate/Area] in Serum, Plasma or Blood by Creatinine-based formula (CKD-EPI) 01/09/2023 04:50:00 >90 >=60 (mL/min) Final Performing Location [facility] [address]
--- OUTSIDE RECORDS SUMMARY | 2023-04-06 06:21 | External Medical Summary | Summary of Care ---
Author Name Unknown Organization [place] [address] Care Team Providers Care Parquet Floor Layer'S Helper Name Role Phone Vanesa Solorzano DO Primary Care Provider + [phone] Reason for Visit * Reason Onset Date Comments Test Results 06/27/2020 Encounter Details Date Type Department Care Team Description 06/27/2020 Telephone [facility] [address] [place] [address] Vanesa Solorzano DO [address], [place] [id number] Test Results Allergies No Known Active Allergiesdocumented as of this encounter (statuses as of 06/27/2020) Medications Medication Sig Dispensed Refills Start Date End Date Status TYLENOL 325 MG PO TABS uses as needed 0 Active Meloxicam 7.5 MG TabletIndications:Arth ritis of right ankle TAKE 1 TAB BY MOUTH DAILY. FOR PAIN. 90 Tab 1 03/12/2020 Active clonazePAM 0.5 MG Oral Tablet (KlonoPIN)Indications: [...] as of this encounter (statuses as of 06/27/2020) Active Problems Problem Noted Date Body mass index (BMI) of 45.0 to 49.9 in adult 04/04/2019 Overview: Per Obesity protocol Dyslipidemia, goal LDL below 130 documented as of this encounter (statuses as of 06/27/2020) Resolved Problems Problem Noted Date Resolved Date Obesity, morbid (more than 1 00 lbs over ideal weight or BMI > 40) 01/08/2010 04/08/2019 Overview: Per Obesity Protocol, #19 ICD-10 update of inactive term Dyslipidemia, goal LDL below 100 09/15/2014 Obesity 04/08/2019 Overview: Per Obesity protocol documented as of this encounter (statuses as of 06/27/2020) Immunizations Name Administration Dates Next Due Seasonal Influenza, Quadriva lent, No Preserve, 6 Mons & Above, IM 05/31/2020,08/06/2018 Seasonal Influenza, Trivalen t, with Preserve, 3yr & Above, Split 05/04/2013 TD - Tetanus/Diptheria (ADULT) 09/12/2003 TDAP (age 10 and older)(Boostrix) 05/04/2013 documented as of this encounter Social History Tobacco Use Types Packs/Day Years Used Date Never Smoker Smokeless Tobacco: Never Used Alcohol Use Drinks/Week oz/Week Comments Yes Occasionally Food Insecurity Answer Date Recorded Within the past 12 months, y ou worried that your food would run out before you got money to buy more. Never true Within the past 12 months, t he food you bought just didn't last and you didn't have money to get more. Never true Sex Assigned at Date Recorded Not on file Job Start Date Occupation Industry Not on file Not on file Not on file documented as of this encounter Miscellaneous Notes * Telephone Encounter - Christi Torres LPN - 06/27/2020 1:36 PM EST Sent MyG. * Telephone Encounter - Vanesa Solorzano DO - 06/27/2020 1:29 PM EST The stress test was nnormal. The mammogram was normal as well documented in this encounter Plan of Treatment Health Maintenance Due Date Last Done Comments Zoster Vaccines (1 of 2) 2012 PAP SMEAR-EVERY 3 YRS,AGES 21-65 09/27/2019 09/26/2016, 09/09/2013, 12/16/2011, Additional history exists BREAST CANCER SCREENING DISCUSSION YEARLY AGES 40-75 06/25/2021 06/25/2020, 04/05/2019, 09/27/2018, Additional history exists DTaP,Tdap,and Td Vaccines (2 - Td) 05/04/2023 05/04/2013, 09/12/2003 DIABETES SCREEN EVERY 3 YRS-AGE 45 AND ABOVE 05/31/2023 05/31/2020, 09/27/2018, 09/26/2016, Additional history exists LIPID SCREEN EVERY 5 YRS-WOMEN AGE 45-75 05/31/2025 05/31/2020, 09/27/2018, 09/26/2016, Additional history exists Influenza Vaccine (FLU shot) Completed 11/2019, 08/06/2018, 05/04/2013 MENINGOCOCCAL (MENACTRA/MENVEO) Aged Out No longer eligible based on patient's age to complete this topic Pneumococcal Vaccine: Pediatrics (0 to 5 Years) and At-Risk Patients (6 to 64 Years) Aged Out No longer eligible based on patient's age to complete this topic documented as of this encounter Implants Not on filedocumented as of this encounter Advance Directives Documents on File Type Date Recorded Patient Meat Puller Expl anation Advanced Directive Advanced Directive Advanced Directive Advanced Directive Advanced Directive Advanced Directive 03/06/2014 11:39 AM Advanced Directive Advanced Directive Advanced Directive Advanced Directive Advanced Directive Advanced Directive Advanced Directive Advanced Directive"
--- OUTSIDE RECORDS SUMMARY | 2023-04-06 06:21 | External Medical Summary | Summary of Care ---
Author Name Unknown Organization [place] [address] Care Team Providers Care Steel Die Engraver Name Role Phone Gorge Solorzano DO Primary Care Provider + [phone] Reason for Visit * Reason Comments eRx-Medication Refill Encounter Details Date Type Department Care Team Description 03/09/2021 Refill [place] [address] [place] [address] Gorge Solorzano DO [address] [place] [address] Arthritis of right ankle Allergies No Known Active Allergiesdocumented as of this encounter (statuses as of 03/11/2021) Medications Medication Sig Dispensed Refills Start Date End Date Status TYLENOL 325 MG PO TABS uses as needed 0 Active clonazePAM 0.5 MG Oral Tablet (KlonoPIN)Indicati ons:Stress due to illness of family member Take [...] 11 05/31/2020 Active Meloxicam 7.5 MG Oral TabletIndications: Arthritis of right ankle TAKE 1 TAB BY MOUTH DAILY. FOR PAIN. 90 Tab 1 03/11/2021 Active Meloxicam 7.5 MG TabletIndications: Arthritis of right ankle TAKE 1 TAB BY MOUTH DAILY. FOR PAIN. 90 Tab 1 03/12/2020 03/11/2021 Discontinued documented as of this encounter (statuses as of 03/11/2021) Active Problems Problem Noted Date Body mass index (BMI) of 45.0 to 49.9 in adult 04/04/2019 Overview: Per Obesity protocol Dyslipidemia, goal LDL below 130 documented as of this encounter (statuses as of 03/11/2021) Resolved Problems Problem Noted Date Resolved Date Obesity, morbid (more than 1 00 lbs over ideal weight or BMI > 40) 01/08/2010 04/08/2019 Overview: Per Obesity Protocol, #19 ICD-10 update of inactive term Dyslipidemia, goal LDL below 100 09/15/2014 Obesity 04/08/2019 Overview: Per Obesity protocol documented as of this encounter (statuses as of 03/11/2021) Immunizations Name Administration Dates Next Due Seasonal [...] encounter Miscellaneous Notes * Telephone Encounter - Сергей Luevano [facility] - 03/11/2021 12:25 PM EDT Signed Prescriptions: Disp Refills Meloxicam 7.5 MG Oral Tablet 90 Tab 1 Sig: TAKE 1 TAB BY MOUTH DAILY. FOR PAIN.Authorizing Provider: GORGE SOLORZANO User: СЕРГЕЙ LUEVANO documented in this encounter Plan of Treatment Health Maintenance Due Date Last Done Comments COVID-19 Vaccine (1) 1974 Zoster Vaccines (1 of 2) 2012 PAP SMEAR-EVERY 3 YRS,AGES 21-65 09/27/2019 09/26/2016, 09/09/2013, 12/16/2011, Additional history exists Influenza Vaccine (FLU shot) (#1) 2021 05/31/2020, 08/06/2018, 05/04/2013 BREAST CANCER SCREENING DISCUSSION YEARLY AGES 40-75 06/25/2021 06/25/2020, 04/05/2019, 09/27/2018, Additional history exists DTaP,Tdap,and Td Vaccines (2 - Td) 05/04/2023 05/04/2013, 09/12/2003 DIABETES SCREEN EVERY 3 YRS-AGE 45 AND ABOVE 05/31/2023 05/31/2020, 09/27/2018, 09/26/2016, Additional history exists LIPID SCREEN EVERY 5 YRS-WOMEN AGE 45-75 05/31/2025 05/31/2020, 09/27/2018, 09/26/2016, Additional history exists MENINGOCOCCAL (MENACTRA/MENVEO) Aged Out No longer eligible based on patient's age to complete this topic Pneumococcal Vaccine: Pediatrics (0 to 5 Years) and At-Risk Patients (6 to 64 Years) Aged Out No longer eligible based on patient's age to complete this topic documented as of this encounter Implants Not on filedocumented as of this encounter Visit Diagnoses Diagnosis Arthritis of right ankle Unspecified arthropathy, ankle and foot documented in this encounter Advance Directives Documents on File Type Date Recorded Patient Manager Case Expl anation Advanced Directive Advanced Directive Advanced Directive Advanced Directive Advanced Directive Advanced Directive 03/06/2014 11:39 AM Advanced Directive Advanced Directive Advanced Directive Advanced Directive Advanced Directive Advanced Directive Advanced Directive Advanced Directive
--- OUTSIDE RECORDS SUMMARY | 2023-04-06 06:21 | External Medical Summary ---
Author Name Unknown Address Unknown Organization K[facility] [place] [address] Laboratory Report Ordering Provider Test Date Status KAPIL VACA 01/09/2023 04:50:00 Final Observation Date Value Abnormality Reference (Units ) Status WBC, Total 01/09/2023 04:50:00 15.99 Above high normal 4 .00-10.80 (K/uL) Final RBC 01/09/2023 04:50:00 5.13 3.85-5.15 (M/uL) Final Hemoglobin 01/09/2023 04:50:00 13.7 12.0-15.3 (g/dL) Final HCT 01/09/2023 04:50:00 43.0 36.0-45.2 (%) Final MCV 01/09/2023 04:50:00 83.8 81.5-97.5 (fL) Final MCH 01/09/2023 04:50:00 26.7 27.0-34.0 (pg) Final MCHC 01/09/2023 04:50:00 31.9 32.0-36.0 (g/dL) Final RDW 01/09/2023 04:50:00 14.7 11.5-15.5 (%) Final Platelets 01/09/2023 04:50:00 389 140-400 (K /uL) Final MPV 01/09/2023 04:50:00 10.6 6.6-11.1 ( fL) Final Performing Location [facility] [place] [address]
--- OUTSIDE RECORDS SUMMARY | 2023-04-06 06:21 | External Medical Summary | Summary of Care ---
Author Name Unknown Organization [facility] Address [address] [place] [address] Phone [phone] Care Team Providers Care Train Control Electronic Technician Name Role Phone Vanesa Solorzano Primary Care Provider [phone] Reason for Visit * Reason Comments Acute Concerns of dehydrat ion and weakness. Question is she still taking simethicone 125mg Encounter Details Date Type Department Care Team Description 02/03/2023 Office Visit [facility] [address] [place] [address] Krish Minor MD [address] [place] [address] Hypotension, unspecified hypotension type*; Paroxysmal atrial flutter (HCC) Allergies No known active allergiesdocumented as of this encounter (statuses as of 02/03/2023) Medications Medication Sig Dispensed Refills Start Date [...] as of this encounter (statuses as of 02/03/2023) Active Problems Problem Noted Date Acute CVA (cerebrovascular accident) 09/2022 Anxiety 01/26/2023 Elevated troponin 01/26/2023 Genetic carrier status 01/26/2023 Intermittent abdominal pain 01/26/2023 Mass of pancreas 01/26/2023 Paroxysmal atrial flutter 01/26/2023 SVT (supraventricular tachycardia) 01/26 Vaginal bleeding 01/26/2023 Weakness 01/26/2023 Acute left hemiparesis 01/26/2023 Obesity, morbid, BMI 40.0-49.9 9 Overview: Per Obesity protocol documented as of this encounter (statuses as of 02/03/2023) Resolved Problems Problem Noted Date Resolved Date Obesity, morbid (more than 1 00 lbs over ideal weight or BMI > 40) 01/08/2010 04/08/2019 Overview: Per Obesity Protocol, #19 ICD-10 update of inactive term Dyslipidemia, goal LDL below 100 09/15/2014 Obesity 04/08/2019 Overview: Per Obesity protocol documented as of this encounter (statuses as of 02/03/2023) Immunizations Name Administration Dates Next Due COVID-19 mRNA, LNP-s, No Pre serve, 2-Dose Series (ticckle) 10/16/2020,09/25/2020 Seasonal Influenza, Quadriva lent, No Preserve, [...] Sign Reading Time Taken Comments Blood Pressure 90/52 02/03/2023 12:56 PM EDT Pulse 131 02/03/2023 12:56 PM EDT Temperature 36.2 C (97.1 F) 02/03/2023 12:56 PM E DT Respiratory Rate 20 02/03/2023 12:56 PM EDT Oxygen Saturation 98% 02/03/2023 12:56 PM EDT Inhaled Oxygen Concentration - - Weight - - Height - - Body Mass Index - - documented in this encounter Progress Notes * Krish Minor MD - 02/03/2023 1:05 PM EDT Subjective: Jacque Spivey is a 62 year old adult. Chief Complaint Patient presents with Acute Concerns of dehydration and weakness. Question is she still taking simethicone 125mg HPI: 62-year-old seen today as in the last couple days she has felt extremely weak and dehydrated and has ongoing Um heavy vaginal bleeding of around soaking of 1 pad an hour. A month ago she suffered a right parietal stroke causing left-sided symptoms. This was felt to be acardioembolic stroke. Transesophageal echocardiogram done during the hospitalization showed no clotwith in the heart. She has had documented atrial flutter but I believe that has been intermittent. Initially she was treated with aspirin. Incidental finding of a pancreatic nodule. She spent about 2weeks at [facility]. When she was seen in this office per Dr. Jamil 8 days ago, she was placed on Eliquis 5 mg twice daily because of atrial flutter. Up to that point she was not bothered with any active bleeding. She did have a history of some intermittent vaginal bleeding although none in recent weeks or possibly months. She had evaluation per gynecology 4 days ago because of her questionable postmenopausal bleeding. During that visit she had endometrial biopsy with results still pending andPap smear. Since then she has had ongoing vaginal bleeding of about soaking of 1 pad an hour with clots. She is not bothered with chest pain. She has some diffuse lower abdominal pain and pelvic cramping. She comes in today because of the ongoing bleeding but also feeling extremely weak and presyncopal. Patient Active Problem List Diagnosis Code Obesity, morbid, BMI 40.0-49.9 ([facility]) E66.01 Acute CVA (cerebrovascular accident) ([facility]) I63.9 Anxiety F41.9 Elevated troponin R77.8 Genetic carrier status Z14.8 Intermittent abdominal pain R10.9 Mass of pancreas K86.89 Paroxysmal atrial flutter ([facility]) I48.92 SVT (supraventricular tachycardia) ([facility]) I47.1 Vaginal bleeding N93.9 Weakness R53.1 Acute left hemiparesis ([facility]) G81.94 Current Outpatient Medications Medication Sig Dispense [...] Oral Capsule Take 1 Capsule by mouth. Aspirin 81 MG Oral Tablet Delayed Release 1 Tablet. (Patient not taking: Reported on 02/03/2023) No current facility-administered medications for this visit. Review of patient's allergies indicates: No Known Allergies Objective: BP 90/52 | Pulse 131 | Temp 36.2 C (97.1 F) (Temporal Artery) | Resp 20 | SpO2 98% Physical Exam: CONST: She appears to be in some distress. She does answer questions appropriately and she is oriented x3. HEAD: normocephalic, atraumatic Eyes - PERRLA, EOM'I OROPHARYNX: clear, no swelling or erythema, moist CV: Rapid heart rate of 120-130 with regular rhythm, no murmur CHEST: clear to auscultation bilaterally, no rales or wheezing ABD: soft, non tender, non distended, no masses or hepatosplenomegaly EXT: no edema, no joint swelling or deformities, NEURO: Very slight weakness handgrip on the left as compared to the right MENTAL STATUS: no evidence of thought disorder, no delusional thought, no evidence of paranoia, thought is non-tangential. SKIN: She is pale although I think she has light complexion ASSESSMENT/PLAN: 1. Tachycardia and hypotension: This could all be related to blood loss or could be atrial flutter with associated tachycardia on top of blood loss. In any regard, she needs further intervention. If she has ongoing atrial flutter and tachycardia she may need elective cardioversion or intravenous calcium channel bob. She already is on metoprolol 25 mg daily 2. Vaginal bleeding-no doubt combination of going on Eliquis and underlying endometrial issue plus recent endometrial biopsy 3. Pancreatic nodule-ultimately she will need EUS 4. Status post likely cardioembolic stroke-ultimately like to keep her on Eliquis although this mayhave to be stopped Um in order to control her endometrial bleeding. I recommended the patient is agreeable, she needs to proceed to [facility] ER for further evaluation andtreatment. The emergency room will be notified. She will have her son forklift driver to the hospital. Krish Minor MD documented in this encounter Nursing Notes * Rizwana Green LPN - 02/03/2023 12:51 PM EDT Chief Complaint Patient presents with Acute Concerns of dehydration and weakness. Question is she still taking simethicone 125mg documented in this encounter Plan of Treatment Upcoming Encounters Date Type Specialty Care Team Description 02/04/2023 Office Visit Neurology Conchita Bianchi PA-C [address] [place] [address] 02/06/2023 Procedure Only Endoscopy Odilia Ring, DO [address] [place] [address] 02/19/2023 Office Visit Cardiology Salbador Galvin CRNP [address] [place] [address] 04/29/2023 Office Visit Family Medicine Vanesa Solorzano, DO [address] [place] [address] 04/29/2023 Office Visit Gastroenterology Amberly Turner CRNP [address] [place] [address] Health Maintenance Due Date Last Done Comments [...] 09/26/2021 09/26/2016, 08/27, 12/16/2011, Additional history exists Hepatitis B (1 of [...] as of this encounter Visit Diagnoses Diagnosis Hypotension, unspecified hypotension type- Primary Paroxysmal atrial flutter (HCC) Atrial flutter documented in this encounter Care Teams Train Control Electronic Technician Relationship Specialty Start Date End Date Vanesa Solorzano, [address] [place] [address] PCP - General Family Medicine 09/21/18 documented as of this encounter"
--- OUTSIDE RECORDS SUMMARY | 2023-04-06 06:21 | External Medical Summary | Summary of Care ---
Author Name Unknown Organization [facility] Address [address] [place] [address] Phone [phone] Care Team Providers Care Pathology Assistant Name Role Phone JasperVanesa noble Primary Care Provider Encounter Details Date Type Department Care Team Description 02/09/2023 Telephone Gynecology/Obstetrics [facility] [address] [place] [address] Bj Ramirez MD [address] [place] [address] Allergies No known active allergiesdocumented as of [...] mRNA, LNP-s, No Pre serve, 2-Dose Series (Drizly) 10/16/2020,09/25/2020 Seasonal Influenza, Quadriva lent, No Preserve, [...] in states that patient was d/c from [facility] today and that she was to have 3 days of antibiotics sent to [facility]. Patient could not tell me which antibiotic. Patient information not in [facility] chart yet from [facility]. Per patient , he spoke to the nurse that discharged her and told them that patient was to call our office and get the medication sent to pharmacy. I called and spoke to Dr. Ramirez who is construction management instructor. He states he is going to look patient information up on [facility] charts and have the patient's doctor send in the medication. He states he did notsend anything in for patient. Dr. Ramirez given patient's 's number. documented in this encounter Plan of Treatment Upcoming Encounters Date Type Specialty Care Team Description 02/12/2023 Office Visit Family Medicine Estrada Haro MD [address] [place], [place] [id number] 02/13/2023 Office Visit Neurology Conchita Cabrera MD [address] [place] [address] 02/19/2023 Office Visit Cardiology Salbador Galvin CRNP [address] [place] [address] 04/29/2023 Office Visit Family Medicine Vanesa Solorzano DO [address] [facility] [place] [facility] [place] [address] 04/29/2023 Office Visit Gastroenterology Amberly Turner CRNP [address] [place] [address] Health Maintenance Due Date Last Done Comments [...] filedocumented as of this encounter Care Teams Pathology Assistant Relationship Specialty Start Date End Date Vanesa Solorzano, DO [address] [place] [address] PCP - General Family Medicine 09/21/18 documented as of this encounter
--- OUTSIDE RECORDS SUMMARY | 2023-04-06 06:21 | External Medical Summary ---
Author Name Unknown Address Unknown Organization K09[facility] [place] [address] Laboratory Report Ordering Provider Test Date Status KAPIL VACA 01/16/2023 05:55:00 Final Observation Date Value Abnormality Reference (Units ) Status WBC, Total 01/16/2023 05:55:00 12.35 Above high normal 4 .00-10.80 (K/uL) Final RBC 01/16/2023 05:55:00 4.71 3.85-5.15 (M/uL) Final Hemoglobin 01/16/2023 05:55:00 12.5 12.0-15.3 (g/dL) Final HCT 01/16/2023 05:55:00 39.7 36.0-45.2 (%) Final MCV 01/16/2023 05:55:00 84.3 81.5-97.5 (fL) Final MCH 01/16/2023 05:55:00 26.5 27.0-34.0 (pg) Final MCHC 01/16/2023 05:55:00 31.5 32.0-36.0 (g/dL) Final RDW 01/16/2023 05:55:00 14.3 11.5-15.5 (%) Final Platelets 01/16/2023 05:55:00 266 140-400 (K /uL) Final MPV 01/16/2023 05:55:00 10.8 6.6-11.1 ( fL) Final Performing Location [facility] [place] [address]
--- OUTSIDE RECORDS SUMMARY | 2023-04-06 06:21 | External Medical Summary | Summary of Care ---
Author Name Unknown Organization [place] [address] Care Team Providers Care Research Biostatistician Name Role Phone Rashad Vanesamarita Easley DO Primary Care Provider Encounter Details Date Type Department Care Team Description 02/20/2022 External Data Patient Risk Medial Allergies No known active allergiesdocumented as of this encounter (statuses as of 02/27/2022) Medications Medication Sig Dispensed Refills Start Date [...] as of this encounter (statuses as of 02/27/2022) Active Problems Problem Noted Date Body mass index (BMI) of 45.0 to 49.9 in adult 04/04/2019 Overview: Per Obesity protocol Dyslipidemia, goal LDL below 130 documented as of this encounter (statuses as of 02/27/2022) Resolved Problems Problem Noted Date Resolved Date Obesity, morbid (more than 1 00 lbs over ideal weight or BMI > 40) 01/08/2010 04/08/2019 Overview: Per Obesity Protocol, #19 ICD-10 update of inactive term Dyslipidemia, goal LDL below 100 09/15/2014 Obesity 04/08/2019 Overview: Per Obesity protocol documented as of this encounter (statuses as of 02/27/2022) Immunizations Name Administration Dates Next Due Seasonal Influenza, Quadriva lent, No Preserve, 6 Mons & Above, IM 05/31/2020,08/06/2018 Seasonal Influenza, Split, IIV3, With Preserve, Inj 05/04/2013 TD - Tetanus/Diptheria (ADULT) 09/12/2003 TDAP (age 10 and older)(Boostrix) 05/04/2013 documented as of this encounter Social History Tobacco Use Types Packs/Day Years Used Date Never Smoker Smokeless Tobacco: Never Used Alcohol Use Standard Drinks/Week Comments Yes 0 (1 standard drink = 0.6 oz pur e alcohol) Occasionally Alcohol Habits Answer Date Recorded How often do you have a drink containing alcohol ? Not asked How many drinks containing a lcohol do you have on a typical day when you are drinking? Not asked How often do you have six or more drinks on one occasion? Not asked Comment: Occasionally 12/20/2013 Food Insecurity Answer Date Recorded Within the [...] as of this encounter Plan of Treatment Health Maintenance Due Date Last Done Comments COVID-19 Vaccine (#1) 03[birth year]20/1961 HIV Screening 1977 Hepatitis C Screening 1980 Cologuard: Ages 45-75 2007 Sigmoidoscopy: Ages 45-75 2007 Zoster Vaccines (1 of 2) 2012 FOBT: Ages 45-75 09/26/2017 09/26/2016, , 09/09/2013, Additional history exists PAP SMEAR-EVERY 3 YRS,AGES 21-65 09/27/2019 09/26/2016, 09/09/2013, 12/16/2011, Additional history exists Depression Screening, Annual for Pts 12 and Over 05/31/2021 05/31/2020 Influenza Vaccine (FLU shot) (#1) 2022 05/31/2020, 08/06/2018, 05/04/2013 Mammogram 06/25/2022 06/25/2020, 03/27, 09/27/2018, Additional history exists DTaP,Tdap,and Td Vaccines (2 - Td or Tdap) 05/04/2023 05/04/2013, 09/12/2003 Diabetes Screening 05/31/2023 05/31/2020, 0 09/27/2018, 09/26/2016, Additional history exists Colonoscopy: Ages 45-75 03/09/2024 03/09/20 14, 03/09/2014, 11/15/2013, Additional history exists Colorectal Cancer Screening (Colonoscopy 10 Years; Sigmoidoscopy 5 Years; Cologuard 3 Years; FOBT 1 Year): Ages 45-75 03/09/2024 Lipid Panel 05/31/2025 05/31/2020, 10/2018, 09/26/2016, [...] Documents on File Type Date Recorded Patient Lead Pony Rider Expl anation Advanced Directive Advanced Directive Advanced Directive Advanced Directive Advanced Directive Advanced Directive Advanced Directive Advanced Directive Advanced Directive Advanced Directive Advanced Directive Advanced Directive Advanced Directive Advanced Directive 03/06/2014 11:39 AM Care Teams Research Biostatistician Relationship Specialty Start Date End Date Vanesa Solozrano, DO [address] [place] [address] PCP - General Family Medicine 09/21/18 documented as of this encounter
--- OUTSIDE RECORDS SUMMARY | 2023-04-06 06:21 | External Medical Summary | Summary of Care ---
Author Name Unknown Organization [facility] Address [address] [place] [address] Phone [phone] Care Team Providers Care Filling Station Attendant Name Role Phone Vanesa Solorzano DO Primary Care Provider Reason for Visit * Reason Onset Date Comments Hospital Follow-Up 01/23/2023 Encounter Details Date Type Department Care Team Description 01/23/2023 Telephone [facility] [address] [place] [address] Vanesa Solorzano DO [address] [place] [address] Hospital Follow-Up Allergies No known active allergiesdocumented as of this encounter (statuses as of 01/23/2023) Medications Medication Sig Dispensed Refills Start Date [...] as of this encounter (statuses as of 01/23/2023) Active Problems Problem Noted Date Body mass index (BMI) of 45.0 to 49.9 in adult 04/04/2019 Overview: Per Obesity protocol Dyslipidemia, goal LDL below 130 documented as of this encounter (statuses as of 01/23/2023) Resolved Problems Problem Noted Date Resolved Date Obesity, morbid (more than 1 00 lbs over ideal weight or BMI > 40) 01/08/2010 04/08/2019 Overview: Per Obesity Protocol, #19 ICD-10 update of inactive term Dyslipidemia, goal LDL below 100 09/15/2014 Obesity 04/08/2019 Overview: Per Obesity protocol documented as of this encounter (statuses as of 01/23/2023) Immunizations Name Administration Dates Next Due Seasonal [...] encounter Miscellaneous Notes * Telephone Encounter - Lu Youngblood LPN - 01/23/2023 12:07 PM EDT Will be discussed at visit on 01/26/23 * Telephone Encounter - ROMANA Hunter - 01/23/2023 10:47 AM EDT Soraida from [facility] sample case porter is calling to let pcp know about a hospital discharge.She wanted to make sure there is a hospital follow up scheduled. Patient is scheduled for ThursdayJanuary 26 When she spoke with patient there was some questions about her medication, whether or not she should be taking aspirin. She states patient's 88 yr old mother was arranging her medication for her. Shewould like pcp office to call and follow up with patient about meds x [phone] If able to fax a copy of office discharge appt. They follow patients for 30 days documented in this encounter Plan of Treatment Upcoming Encounters Date Type Specialty Care Team Description 01/26/2023 Office Visit Family Medicine Anna Jamil MD [address] [place] [address] 01/30/2023 Office Visit Gynecology Obstetrics BackerNida CRNP [address] [place] [address] 02/06/2023 Procedure Only Endoscopy Odilia Ring DO [address] [place] [address] 04/29/2023 Office Visit Gastroenterology Amberly Turner CRNP [address] [place] [address] Health Maintenance Due Date Last Done Comments [...] 10/2018, 09/26/2016, Additional history exists Diabetes Screening 01/16/2026 01/16/2023, 0 01/09/2023, 05/31/2020, [...] filedocumented as of this encounter Care Teams Filling Station Attendant Relationship Specialty Start Date End Date Vanesa Solorzano, DO [address] [place] [address] PCP - General Family Medicine 09/21/18 documented as of this encounter
--- OUTSIDE RECORDS SUMMARY | 2023-04-06 06:21 | External Medical Summary | Summary of Care ---
Author Name Unknown Organization [facility] Address [address] [place] [address] Phone [phone] Care Team Providers Care Loan Inspector Name Role Phone Vanesa Solorzano Primary Care Provider Encounter Details Date Type Department Care Team Description 01/05/2023 Telephone Gastroenterology, [facility] [address] [place] [address] Yazmin Mast CRNP [address] [place] [address] Allergies No known active allergiesdocumented as of [...] pancreas documented in this encounter Care Teams Loan Inspector Relationship Specialty Start Date End Date Vanesa Solorzano, [address] [place] [address] PCP - General Family Medicine 09/21/18 documented as of this encounter
--- OUTSIDE RECORDS SUMMARY | 2023-04-06 06:21 | External Medical Summary | Summary of Care ---
Author Name Unknown Organization [facility] Address [address] [place] [address] Phone [phone] Care Team Providers Care Cable Repairer Name Role Phone Vanesa Solorzano Primary Care Provider Encounter Details Date Type Department Care Team Description 01/05/2023 Telephone Gastroenterology, [facility] [address] [place] [address] Yazmin Mast CRNP [address] [place] [address] Allergies No known active allergiesdocumented as of [...] Miscellaneous Notes * Telephone Encounter - TYLER Beranl - 01/05/2023 10:54 AM EDT Pt admitted [...] pancreas documented in this encounter Care Teams Cable Repairer Relationship Specialty Start Date End Date Vanesa Solorzano, [address] [place] [address] PCP - General Family Medicine 09/21/18 documented as of this encounter
--- OUTSIDE RECORDS SUMMARY | 2023-04-06 06:21 | External Medical Summary | Summary of Care ---
Author Name Unknown Organization [facility] Address [address] [place] [address] Phone [phone] Care Team Providers Care Well Tender Name Role Phone Vanesa Solorzano Primary Care Provider [phone] Encounter Details Date Type Department Care Team Description 01/05/2023 Telephone Gastroenterology, [facility] [address] [place] [address] Yazmin Mast CRNP [address] [place] [address] Allergies No known active allergiesdocumented as of this encounter (statuses as of 02/06/2023) Medications Medication Sig Dispensed Refills Start Date End Date Status TYLENOL 325 MG PO TABS uses as needed 0 Active Nitroglycerin 0.3 MG Sublingual Tablet Sublingual (NITROSTAT)Indicat ions:Chest pain, unspecified type Place 1 Tab under the tongue as needed for Pain, Chest. May repeat 3 times. If chest pain continues, call 911. 25 Tab 11 05/31/2020 Active clonazePAM 0.5 MG Oral Tablet (KlonoPIN)Indicati ons:Stress due to illness of family member Take 1 Tab by mouth 2 times a day as needed for Anxiety or Insomnia. 30 Tab 0 05/31/2020 01/26/2023 Discontinued( Patient preference/di scontinuation ) Meloxicam 7.5 MG Oral TabletIndications: Arthritis of right ankle TAKE 1 TAB BY MOUTH DAILY. FOR PAIN. 90 Tab 1 03/11/2021 01/26/2023 Discontinued( Medication/Do se Changed) documented as of this encounter (statuses as of 02/06/2023) Active Problems Problem Noted Date Endometrial cancer 02/04/2023 Acute CVA (cerebrovascular accident) 09/2022 Anxiety 01/26/2023 Elevated troponin 01/26/2023 Genetic carrier status 01/26/2023 Intermittent abdominal pain 01/26/2023 Mass of pancreas 01/26/2023 Paroxysmal atrial flutter 01/26/2023 SVT (supraventricular tachycardia) 01/26 Weakness 01/26/2023 Acute left hemiparesis 01/26/2023 Obesity, morbid, BMI 40.0-49.9 9 Overview: Per Obesity protocol documented as of this encounter (statuses as of 02/06/2023) Resolved Problems Problem Noted Date Resolved Date Obesity, morbid (more than 1 00 lbs over ideal weight or BMI > 40) 01/08/2010 04/08/2019 Overview: Per Obesity Protocol, #19 ICD-10 update of inactive term Dyslipidemia, goal LDL below 100 09/15/2014 Obesity 04/08/2019 Overview: Per Obesity protocol documented as of this encounter (statuses as of 02/06/2023) Immunizations Name Administration Dates Next Due COVID-19 [...] Miscellaneous Notes * Telephone Encounter - Odilia Ring DO - 02/06/2023 4:02 PM EDT EUS and ERCP were complected on 02/06 during an inpatient stay. * Telephone Encounter - ROMANA Quijano - 02/04/2023 4:24 PM EDT Pt currently admitted at [facility], will cx 02/06 EUS per Scott. Will await further instructions to reschedule. * Telephone Encounter - ROMANA Ordaz - 01/06/2023 3:06 PM EDT Spoke to pt, EUS scheduled on 02/06 w/ scott at [facility] Instructions mailed * Telephone Encounter - TYLER [...] Family Medicine Estrada Haro MD [address] [place] [address] 02/13/2023 Office Visit Neurology Conchita Cabrera MD [address] [place], [place] [phone] 02/19/2023 Office Visit Cardiology Salbador Galvin CRNP [address] [place], [place] [phone] 04/29/2023 Office Visit Family Medicine Vanesa Solorzano DO [address] [place] [address] 04/29/2023 Office Visit [facility]enterology [facility] [address] Scheduled Orders Name Type Priority Associated Diagnoses [...] pancreas documented in this encounter Care Teams Well Tender Relationship Specialty Start Date End Date Vanesa Solorzano DO [address] [place] [address] PCP - General Family Medicine 09/21/18 documented as of this encounter
--- OUTSIDE RECORDS SUMMARY | 2023-04-06 06:21 | External Medical Summary | Summary of Care ---
Author Name Unknown Organization [facility] Address [address] [place] [address] Phone [phone] Care Team Providers Care Perfume Maker Name Role Phone Vanesa Solorzano Primary Care Provider Reason for Visit * Reason Comments Museum Host/Hostess New Encounter Details Date Type Department Care Team Description 01/30/2023 Office Visit Gynecology/Obstetrics [facility] [address] [facility] [place] [address] Nida [facility]orden CR[facility] [address] [facility] [address] Abnormal uterine bleeding (AUB)* Allergies No known active allergiesdocumented as of this encounter (statuses as of 01/30/2023) Medications Medication Sig Dispensed Refills Start Date [...] as of this encounter (statuses as of 01/30/2023) Active Problems Problem Noted Date Acute CVA (cerebrovascular accident) 09/2022 Anxiety 01/26/2023 Elevated troponin 01/26/2023 Genetic carrier status 01/26/2023 Intermittent abdominal pain 01/26/2023 Mass of pancreas 01/26/2023 Paroxysmal atrial flutter 01/26/2023 SVT (supraventricular tachycardia) 01/26 Vaginal bleeding 01/26/2023 Weakness 01/26/2023 Acute left hemiparesis 01/26/2023 Obesity, morbid, BMI 40.0-49.9 9 Overview: Per Obesity protocol documented as of this encounter (statuses as of 01/30/2023) Resolved Problems Problem Noted Date Resolved Date Obesity, morbid (more than 1 00 lbs over ideal weight or BMI > 40) 01/08/2010 04/08/2019 Overview: Per Obesity Protocol, #19 ICD-10 update of inactive term Dyslipidemia, goal LDL below 100 09/15/2014 Obesity 04/08/2019 Overview: Per Obesity protocol documented as of this encounter (statuses as of 01/30/2023) Immunizations Name Administration Dates Next Due COVID-19 mRNA, LNP-s, No Pre serve, 2-Dose Series (Pembe Panjur) 10/16/2020,09/25/2020 Seasonal Influenza, Quadriva lent, No Preserve, [...] presents for bleeding. She was seen at [facility] ER on 01/02 with left sided [...] normal pap hx. No family hx of printed circuit board reworker cancer. She is taking Eliquis, ASA. OB [...] History: Diagnosis Date Acute CVA (cerebrovascular accident) ([facility]) 01/26/2023 Acute left hemiparesis ([facility]) 01/26/2023 Anxiety 01/26/2023 Dyslipidemia, goal LDL below 130 Gestational hypertension Mass of pancreas 01/26/2023 Obesity, morbid, BMI 40.0-49.9 ([facility]) 04/04/2019 Per Obesity protocol Other screening mammogram 03/10/2005 wnl per [facility] at Paroxysmal atrial flutter ([facility]) 01/26/2023 SVT (supraventricular tachycardia) ([facility]) 01/26/2023 Past Surgical History: Procedure Laterality Date COLONOSCOPY, DIAGNOSTIC (RECTUM) 11/15/2013 perianal and digital rectal exam normal, severe stenosis found at 35 cm proximal to the anus and was non-transversed, stricture at 35 cm in colon, CT scan abd/pelvis/COLONOSCOPY FLEXIBLE PROXIMAL DIAGNOSTIC performed by You Gregory MD at ENDOSCOPY [facility] COLONOSCOPY, DIAGNOSTIC (RECTUM) 03/09/2014 COLONOSCOPY FLEXIBLE PROXIMAL DIAGNOSTIC performed by Susu Whittington MD at ENDOSCOPY [facility] LIGATE/CUT OVIDUCT(S) MAMMOGRAM - 1 BREAST 02/[facility] MAM[facility] - 1 BREAST 08/26/04 [facility] [...] BMI 43.70 kg/m | BSA 2.28 m Dog Control Officer Documentation Provider requested lighting technician. Name of lighting technician: Cammy Livingston LPN General: alert and anxious [...] discussed with spouse. - SURGICAL PATHOLOGY - CREOSOTING ENGINEER PAP DIAGNOSTIC A ''time out'' was initiated [...] Visit Neurology Conchita Bianchi PA-C [address] [place] [address] 02/06/2023 Procedure Only Endoscopy Odilia Ring, [address] [place] [address] 02/19/2023 Office Visit Cardiology Salbador Galvin CRNP [address] [place] [address] 04/29/2023 Office Visit Family Medicine Vanesa Solorzano, [address] [place] [address] 04/29/2023 Office Visit Gastroenterology Amberly Turner CRNP [address] [place] [address] Pending Results Name Type Priority Associated Diagnoses Date /Time SURGICAL PATHOLOGY Pathology Routine Abnormal uterine bleeding (AUB) 01/30/2023 3:23 PM EDT CREOSOTING ENGINEER PAP DIAGNOSTIC Pathology Routine Abnormal uterine bleeding (AUB) 01/30/2023 3:23 PM EDT Health Maintenance Due Date Last [...] of this encounter Visit Diagnoses Diagnosis Abnormal uterine bleeding (AUB)- Primary documented in this encounter Care Teams Perfume Maker Relationship Specialty Start Date End Date Vanesa Solorzano, [address] [place] [address] PCP - General Family Medicine 09/21/18 documented as of this encounter
--- OUTSIDE RECORDS SUMMARY | 2023-04-06 06:21 | External Medical Summary | Summary of Care ---
Author Name Unknown Organization [facility] Address [address] [place] [address] Phone [phone] Care Team Providers Care Vp Ad Products And Planning Name Role Phone Vanesa Solorzano Primary Care Provider Encounter Details Date Type Department Care Team Description 02/05/2023 Telephone Gynecology/Oncology, [facility] [address] [place] [address] Brayan Olguin PA-C [address] [place] [address] Allergies No known active allergiesdocumented as of this encounter (statuses as of 02/05/2023) Medications Medication Sig Dispensed Refills Start Date [...] as of this encounter (statuses as of 02/05/2023) Active Problems Problem Noted Date Endometrial cancer 02/04/2023 Acute CVA (cerebrovascular accident) 09/2022 Anxiety 01/26/2023 Elevated troponin 01/26/2023 Genetic carrier status 01/26/2023 Intermittent abdominal pain 01/26/2023 Mass of pancreas 01/26/2023 Paroxysmal atrial flutter 01/26/2023 SVT (supraventricular tachycardia) 01/26 Weakness 01/26/2023 Acute left hemiparesis 01/26/2023 Obesity, morbid, BMI 40.0-49.9 9 Overview: Per Obesity protocol documented as of this encounter (statuses as of 02/05/2023) Resolved Problems Problem Noted Date Resolved Date Obesity, morbid (more than 1 00 lbs over ideal weight or BMI > 40) 01/08/2010 04/08/2019 Overview: Per Obesity Protocol, #19 ICD-10 update of inactive term Dyslipidemia, goal LDL below 100 09/15/2014 Obesity 04/08/2019 Overview: Per Obesity protocol documented as of this encounter (statuses as of 02/05/2023) Immunizations Name Administration Dates Next Due COVID-19 mRNA, LNP-s, No Pre serve, 2-Dose Series ([employer]) 10/16/2020,09/25/2020 Seasonal Influenza, Quadriva lent, No Preserve, [...] encounter Miscellaneous Notes * Telephone Encounter - Brayan Olguin PA-C - 02/05/2023 10:29 AM EDT Left VM for patient to return call to our office to schedule new patient appointment. NC documented in this encounter Plan of Treatment Upcoming Encounters Date Type Specialty Care Team Description 02/13/2023 Office Visit Neurology Conchita Cabrera MD [address] [place] [address] 02/19/2023 Office Visit Cardiology Salbador Galvin CRNP [address] [place] [address] 04/29/2023 Office Visit Family Medicine Vanesa Solorzano, [address] [place] [address] 04/29/2023 Office Visit Gastroenterology Amberly Turner CRNP [address] [place] [address] Health Maintenance Due Date Last Done Comments [...] filedocumented as of this encounter Care Teams Vp Ad Products And Planning Relationship Specialty Start Date End Date Vanesa Solorzano, [address] [place] [address] PCP - General Family Medicine 09/21/18 documented as of this encounter
--- OUTSIDE RECORDS SUMMARY | 2023-04-06 06:21 | External Medical Summary | Summary of Care ---
Author Name Unknown Organization [facility] Address [address] [place] [address] Phone [phone] Care Team Providers Care Black Leather Buffer Name Role Phone Vanesa Solorzano Primary Care Provider [phone] Reason for Referral * Evaluate & Treat - Unlimited Visits (Within 10 days (routine)) - Pending Review Specialty Diagnoses / Procedures Referred By Todd young Referred To Contact Gynecologic Oncology / Gynecology Oncology Diagnoses Endometrial carcinoma (HCC) Nida Borden CRNP [address] [place] [address] Referral ID Status Reason Start Date Expiration Date Visits Requested Visits Authorized [id number] Pending Review Specialty Services Required 02/04/[phone] Question Answer Referral Priority Within 10 days (routine) Reason for Visit * Reason Onset Date Comments Test Results 02/04/2023 Encounter Details Date Type Department Care Team Description 02/04/2023 Telephone Gynecology/Obstetrics [facility] [address] [place] [address] Nida Borden CRNP [address] [place] [address] Test Results Allergies No known active allergiesdocumented [...] encounter Miscellaneous Notes * Telephone Encounter - TYELR Ag - 02/04/2023 3:14 PM EDT Referral placed. VALE Webster. TYLER Kaminski * Telephone Encounter - Christi Fry RN - 02/04/2023 3:[address] Doty did talk with pt and asked that Salbador place the primary school teacher onc referral but pt is having a bx of her pancreas this Thursday so may not be available for a bit. * Telephone Encounter - TYLER Ag - 02/04/2023 11:10 AM EDT Ok, thanks so much. Let me know if I need to place a referral to primary school teacher/onc, or if Dr Doty will. [facility] * Telephone Encounter - Christi Fry RN [...] son advised to call pt's You - [phone]. Pt currently hospitalized due to dehydration. Pt not available, pt's would like to call us back when he is with her. Given nurse triage number. TYLER Kaminski documented in this encounter Plan of Treatment Upcoming Encounters Date Type Specialty Care Team Description 02/06/2023 Procedure Only Endoscopy Odilia Ring, [address] [place] [address] 02/13/2023 Office Visit Neurology Conchita Cabrera MD [address] [place] [address] 02/19/2023 Office Visit Cardiology Salbador Galvin CRNP [address] [facility] [place] [id number] 04/29/2023 Office Visit Family Medicine Vanesa Solorzano, DO [address] [facility] [place] [address] 04/29/2023 Office Visit Gastroenterology Amberly Turner CRNP [address] [place] [address] Scheduled Referrals Name Type Priority Associated Diagnoses Orde r Schedule BEAM WARPER/ONC REFERRAL OP Referral Within 10 da ys [...] isthmus documented in this encounter Care Teams Black Leather Buffer Relationship Specialty Start Date End Date Vanesa Solorzano, [address] [place] [address] PCP - General Family Medicine 09/21/18 documented as of this encounter
--- OUTSIDE RECORDS SUMMARY | 2023-04-06 06:21 | External Medical Summary | Summary of Care ---
Author Name Unknown Organization [facility] Address [address] [place] [address] Phone [phone] Care Team Providers Care Elderly Caregiver Name Role Phone MichaelVanesa borden Primary Care Provider [phone] Encounter Details Date Type Department Care Team Description 01/05/2023 Telephone Gastroenterology, [facility] [address] [place] [address] Yazmin Mast CRNP [address] [place] [address] Allergies No known active allergiesdocumented as of [...] mRNA, LNP-s, No Pre serve, 2-Dose Series ([employer]) 10/16/2020,09/25/2020 Seasonal Influenza, Quadriva lent, No Preserve, [...] Miscellaneous Notes * Telephone Encounter - ROMANA Quijano - 02/04/2023 4:24 PM EDT Pt currently admitted at OR, will cx 02/06 EUS per Jhonathan. Will await further instructions to reschedule. * Telephone Encounter - ROMANA Ordaz - 01/06/2023 3:06 PM EDT Spoke to pt, EUS scheduled on 02/06 w/ jhonathan at OR Instructions mailed * Telephone Encounter - TYLER [...] Office Visit Neurology Conchita Cabrera MD [address] [place] [address] 02/19/2023 Office Visit Cardiology Salbador Galvin CRNP [address] [place] [address] 04/29/2023 Office Visit Family Medicine Vanesa Solorzano, DO [address] [place] [address] 04/29/2023 Office Visit Gastroenterology Amberly Turner CRNP [address] [facility] [place] [address] Scheduled Orders Name Type Priority Associated Diagnoses [...] pancreas documented in this encounter Care Teams Elderly Caregiver Relationship Specialty Start Date End Date Vanesa Solorzano DO [address] [place] [address] PCP - General Family Medicine 09/21/18 documented as of this encounter
--- OUTSIDE RECORDS SUMMARY | 2023-04-06 06:21 | External Medical Summary | Summary of Care ---
Author Name Unknown Organization [facility] Address [address] [place] [address] Phone [phone] Care Team Providers Care Wellness Program Coordinator Name Role Phone Vanesa Solorzano Primary Care Provider Reason for Visit * Reason Comments Acute Concerns of dehydrat ion and weakness. Question is she still taking simethicone 125mg Encounter Details Date Type Department Care Team Description 02/03/2023 Office Visit [facility] [address] [place] [address] Krish Minor MD [address] [place] [address] Hypotension, unspecified hypotension type*; Paroxysmal [...] mRNA, LNP-s, No Pre serve, 2-Dose Series ([employer]) 10/16/2020,09/25/2020 Seasonal Influenza, Quadriva lent, No Preserve, [...] pancreatic nodule. She spent about 2weeks at [facility]. When she was seen in this [...] List Diagnosis Code Obesity, morbid, BMI 40.0-49.9 ([facility]) E66.01 Acute CVA (cerebrovascular accident) ([facility]) I63.9 Anxiety F41.9 Elevated troponin R77.8 Genetic carrier status Z14.8 Intermittent abdominal pain R10.9 Mass of pancreas K86.89 Paroxysmal atrial flutter ([facility]) I48.92 SVT (supraventricular tachycardia) ([facility]) I47.1 Vaginal bleeding N93.9 Weakness R53.1 Acute left hemiparesis ([facility]) G81.94 Current Outpatient Medications Medication Sig Dispense [...] is agreeable, she needs to proceed to [facility] ER for further evaluation andtreatment. The emergency room will be notified. She will have her son laundry route driver to the hospital. Krish Minor MD [...] Visit Neurology Conchita Bianchi PA-C [address] [place] [facility] [place] [address] 02/06/2023 Procedure Only Endoscopy Odilia Ring, DO [address] [place] [address] 02/19/2023 Office Visit Cardiology Salbador Galvin CRNP [address] [place] [address] 04/29/2023 Office Visit Family Medicine Vanesa Solorzano, DO [address] [place] [address] 04/29/2023 Office Visit Gastroenterology Amberly Turner CRNP [address] [place] [address] Health Maintenance Due Date Last Done Comments [...] flutter documented in this encounter Care Teams Wellness Program Coordinator Relationship Specialty Start Date End Date Vanesa Solorzano, [address] [place] [address] PCP - General Family Medicine 09/21/18 documented as of this encounter"
--- OUTSIDE RECORDS SUMMARY | 2023-04-06 06:21 | External Medical Summary | Summary of Care ---
Author Name Unknown Organization [facility] Address [address] [place] [address] Phone [phone] Care Team Providers Care Outfitter Cabin Name Role Phone Vanesa Solorzano Primary Care Provider Encounter Details Date Type Department Care Team Description 02/06/2023 Result Scan Unspecified Department <No scans attached> Allergies No known active [...] mRNA, LNP-s, No Pre serve, 2-Dose Series ([employer]) 10/16/2020,09/25/2020 Seasonal Influenza, Quadriva lent, No Preserve, [...] Family Medicine Estrada Haro MD [address] [place] [address] 02/13/2023 Office Visit Neurology Conchita Cabrera MD [address] [place] [address] 02/19/2023 Office Visit Cardiology Salbador Galvin CRNP [address] [place] [address] 04/29/2023 Office Visit Family Medicine Vanesa Solorzano DO [address] [place] [address] 04/29/2023 Office Visit Gastroenterology Amberly Turner CRNP [address] [place] [address] Health Maintenance Due Date Last Done Comments [...] Name Priority Date/Time Associated Diagnosis Comments RADIOLOGY SCANNED RESULT 02/06/2023 documented in this encounter Results * RADIOLOGY SCANNED RESULT (02/06/2023) 02/06/2023 No Physician Data Unknown DIAGNOSTIC RAD IOLOGY SERVICES documented in this encounter Care Teams Outfitter Cabin Relationship Specialty Start Date End Date Vanesa Solorzano DO [address] [place] [address] PCP - General Family Medicine 09/21/18 documented as of this encounter
--- OUTSIDE RECORDS SUMMARY | 2023-04-06 06:22 | External Medical Summary | Summary of Care ---
Author Name Unknown Organization [place] [address] Care Team Providers Care Customer Account Specialist Name Role Phone Vanesa Solorzano DO Primary Care Provider + [phone] Reason for Visit * Reason Onset Date Comments Test Results 06/27/2020 Encounter Details Date Type Department Care Team Description 06/27/2020 Telephone [facility] [address] [place] [address] Vanesa Solorzano DO [address] [place], [place] [id number] Test Results Allergies No Known Active Allergiesdocumented [...] Documents on File Type Date Recorded Patient Child Caregiver Expl anation Advanced Directive Advanced Directive Advanced Directive Advanced Directive Advanced Directive Advanced Directive 03/06/2014 11:39 AM Advanced Directive Advanced Directive Advanced Directive Advanced Directive Advanced Directive Advanced Directive Advanced Directive Advanced Directive
--- OUTSIDE RECORDS SUMMARY | 2023-04-06 06:22 | External Medical Summary | Summary of Care ---
Author Name Unknown Organization [place] [address] Care Team Providers Care Management Intern Name Role Phone Vanesa Solorzano DO Primary Care Provider + [phone] Reason for Visit * Reason Comments Order Request Encounter Details Date Type Department Care Team Description 12/13/2018 Telephone [facility] [address] [place], [place] [address] Vanesa Solorzano DO [address] [place] [address] [phone] Order Request Allergies No Known Allergiesdocumented as of this encounter (statuses as of 12/21/2018) Medications Medication Sig Dispensed Refills Start Date End Date Status TYLENOL 325 MG PO TABS uses as needed 0 Active Meloxicam (MOBIC) 7.5 MG TabletIndications:Arth ritis of right ankle Take 1 Tab by mouth daily. for pain. 30 Tab 11 08/06/2018 Active documented as of this encounter (statuses as of 12/21/2018) Active Problems Problem Noted Date Obesity, morbid (more than 100 lbs over ideal weight or BMI > 40) 01/08/2010 Overview: Per Obesity Protocol, #19 ICD-10 update of inactive term Obesity Dyslipidemia, goal LDL below 130 documented as of this encounter (statuses as of 12/21/2018) Resolved Problems Problem Noted Date Resolved Date Dyslipidemia, goal LDL below 100 09/15/2014 documented as of this encounter (statuses as of 12/21/2018) Immunizations Name Administration Dates Next Due Seasonal Influenza, Quadriva lent, No Preserve, 6 Mons & Above, IM 08/06/2018 Seasonal Influenza, Trivalen t, with Preserve, 3yr & Above, Split 05/04/2013 TD - Tetanus/Diptheria (ADULT) 09/12/2003 TDAP (age 10 and older)(Boostrix) 05/04/2013 documented as of this encounter Social History Tobacco Use Types Packs/Day Years Used Date Never Smoker Smokeless Tobacco: Never Used Alcohol Use Drinks/Week oz/Week Comments Yes Occasionally Sex Assigned at Date Recorded Not on file Job Start Date Occupation Industry Not on file Not on file Not on file Travel History Travel Start Travel End documented as of this encounter Miscellaneous Notes * Telephone Encounter - Christi Yang OSA - 12/21/2018 12:53 PM EDT Pt calling to schedule diagnostic mammogram. No US ordered with mammogram. Please contact pt to schedule once US is ordered. [phone] * Telephone Encounter - Shona Ngo OSA - 12/17/2018 10:43 AM EDT LMOM and letter sent 12/17/18 [facility] * Telephone Encounter - Shona Ngo OSA - 12/15/2018 2:31 PM EDT LMOM 12/15/18 [facility] * Telephone Encounter - Vanesa Solorzano DO - 12/15/2018 1:46 PM EDT R diagnostic mammogram needs scheduled in March * Telephone Encounter - Roxanne Carey OSA - 12/13/2018 12:27 PM EDT An order was requested for this patient. Name of Requestor: Pt Order Requested: Mammogram Diagnosis/Reason for Request: Pt states that she was told that she needs to have another mammogram done Does the order need to be faxed somewhere? If so, where?: No Fax Number, if applicable: Call Back Number: [phone] documented in this encounter Plan of Treatment Upcoming Encounters Date Type Specialty Care Team Description 03/14/2019 Office Visit Family Medicine Vanesa Solorzano, DO [address] [place] [address] [phone] Scheduled Orders Name Type Priority Associated Diagnoses Orde r Schedule MAMMOGRAM DIAGNOSTIC RIGHT Medical Imaging Routine Abnormal mammogram Ordered: 12/15/2018 Health Maintenance Due Date Last Done Comments PAP SMEAR-EVERY 3 YRS,AGES 21-65 09/27/2019 09/26/2016, 09/09/2013, 12/16/2011, Additional history exists BREAST CANCER SCREENING DISCUSSION YEARLY AGES 40-75 09/28/2019 09/27/2018, 09/21/2018, 09/30/2016, Additional history exists DIABETES SCREEN EVERY 3 YRS-AGE 45 AND ABOVE 09/27/2021 09/27/2018, 09/26/2016, 09/19/2015, Additional history exists DTaP,Tdap,and Td Vaccines (2 - Td) 05/04/2023 05/04/2013, 09/12/2003 LIPID SCREEN EVERY 5 YRS-WOMEN AGE 45-75 09/28/2023 09/27/2018, 09/26/2016, 09/19/2015, Additional history exists Influenza Vaccine (FLU shot) Completed 08/06/2018, 05/04/2013 MENINGOCOCCAL (MENACTRA) Aged Out No longer eligible based on patient's age to complete this topic documented as of this encounter Implants Not on filedocumented as of this encounter Visit Diagnoses Diagnosis Abnormal mammogram- Primary Abnormal mammogram, unspecified documented in this encounter Advance Directives Documents on File Type Date Recorded Patient Lab Courier Expl anation Advanced Directive Advanced Directive Advanced Directive Advanced Directive Advanced Directive Advanced Directive 03/06/2014 11:39 AM Advanced Directive Advanced Directive
--- OUTSIDE RECORDS SUMMARY | 2023-04-06 06:22 | External Medical Summary | Summary of Care ---
Author Name Unknown Organization [place] [address] Care Team Providers Care Batch Attendant Name Role Phone Vanesa Solorzano DO Primary Care Provider + [phone] Encounter Details Date Type Department Care Team Description 04/08/2019 Telephone [facility] [address] [place] [address] Vanesa Solorzano DO [address] [place] [address] [phone] Allergies No Known Allergiesdocumented as of this encounter (statuses as of 04/08/2019) Medications Medication Sig Dispensed Refills Start Date End Date Status TYLENOL 325 MG PO TABS uses as needed 0 Active Meloxicam (MOBIC) 7.5 MG TabletIndications:Arth ritis of right ankle Take 1 Tab by mouth daily. for pain. 90 Tab 1 03/14/2019 Active documented as of this encounter (statuses as of 04/08/2019) Active Problems Problem Noted Date Body mass index (BMI) of 45.0 to 49.9 in adult 04/04/2019 Overview: Per Obesity protocol Dyslipidemia, goal LDL below 130 documented as of this encounter (statuses as of 04/08/2019) Resolved Problems Problem Noted Date Resolved Date Obesity, morbid (more than 1 00 lbs over ideal weight or BMI > 40) 01/08/2010 04/08/2019 Overview: Per Obesity Protocol, #19 ICD-10 update of inactive term Dyslipidemia, goal LDL below 100 09/15/2014 Obesity 04/08/2019 Overview: Per Obesity protocol documented as of this encounter (statuses as of 04/08/2019) Immunizations Name Administration Dates Next Due Seasonal [...] encounter Miscellaneous Notes * Telephone Encounter - Helene Pina LPN - 04/08/2019 3:22 PM EDT left a message for patient (or parent) to return call to triage regarding message. * Telephone Encounter - Vanesa Solorzano DO - 04/08/2019 2:35 PM EDT Repeat mammogram for september 2019 And the films of her ankle and foot show arthritis and a heel spur. Would she like to see podiatry? documented in this encounter Plan of Treatment Health Maintenance Due Date Last Done Comments Influenza Vaccine (FLU shot) (#1) 2019 08/06/2018, 05/04/2013 PAP SMEAR-EVERY 3 YRS,AGES 21-65 09/27/2019 09/26/2016, 09/09/2013, 12/16/2011, Additional history exists BREAST CANCER SCREENING DISCUSSION YEARLY AGES 40-75 04/05/2020 04/05/2019, 09/27/2018, 09/21/2018, Additional history exists DIABETES SCREEN EVERY 3 YRS-AGE 45 AND ABOVE 09/27/2021 09/27/2018, 09/26/2016, 09/19/2015, Additional history exists DTaP,Tdap,and Td Vaccines (2 - Td) 05/04/2023 05/04/2013, 09/12/2003 LIPID SCREEN EVERY 5 YRS-WOMEN AGE 45-75 09/28/2023 09/27/2018, 09/26/2016, 09/19/2015, Additional history exists MENINGOCOCCAL (MENACTRA) Aged Out No longer eligible [...] Documents on File Type Date Recorded Patient Riveting Machine Operator Tape Control Expl anation Advanced Directive Advanced Directive Advanced Directive Advanced Directive Advanced Directive Advanced Directive 03/06/2014 11:39 AM Advanced Directive Advanced Directive
--- OUTSIDE RECORDS SUMMARY | 2023-04-06 06:22 | External Medical Summary | Summary of Care ---
Author Name Unknown Organization [place] [address] Care Team Providers Care Job Hand Name Role Phone Vanesa Solorzano DO Primary Care Provider [phone] Reason for Visit * Reason Comments COVID-19 Screening Encounter Details Date Type Department Care Team Description 11/21/2019 Pandemic Screening COVID19 Screening, [place] [address] [place] [address] [place], Covid19 Screening [address] [place] [address] [phone] Suspected 2019 Novel Coronavirus Infection* Allergies No Known Allergiesdocumented as of this encounter (statuses as of 11/21/2019) Medications Medication Sig Dispensed Refills Start Date End Date Status TYLENOL 325 MG PO TABS uses as needed 0 Active Meloxicam (MOBIC) 7.5 MG TabletIndications:Arth ritis of right ankle Take 1 Tab by mouth daily. for pain. 90 Tab 1 09/05/2019 Active documented as of this encounter (statuses as of 11/21/2019) Active Problems Problem Noted Date Body mass index (BMI) of 45.0 to 49.9 in adult 04/04/2019 Overview: Per Obesity protocol Dyslipidemia, goal LDL below 130 documented as of this encounter (statuses as of 11/21/2019) Resolved Problems Problem Noted Date Resolved Date Obesity, morbid (more than 1 00 lbs over ideal weight or BMI > 40) 01/08/2010 04/08/2019 Overview: Per Obesity Protocol, #19 ICD-10 update of inactive term Dyslipidemia, goal LDL below 100 09/15/2014 Obesity 04/08/2019 Overview: Per Obesity protocol documented as of this encounter (statuses as of 11/21/2019) Immunizations Name Administration Dates Next Due Seasonal [...] file Travel History Travel Start Travel End COVID-19 Exposure Response Date Recorded In the last month, have you been in contact with someone who was confirmed or suspected to have Coronavirus / COVID-19? Yes 11/21/2019 8:26 AM EDT documented as of this encounter Progress Notes * Brett Boyd CRNP - 11/21/2019 9:12 AM EDT Travel Screening Question Response Do you have any of the following symptoms? Fever;Sore throat (ear soreness) In the last month, have you been in contact with someone who was confirmed or suspected to have Coronavirus / COVID-19? Yes (travel within [place]; suspected co worker-the co worker's Mom was +) Have you traveled internationally in the last month? No Travel History Travel since 10/21/19 No documented travel since 10/21/19 Patient has had fever for 24 hours, sore throat and some ear symptoms on and off. The patient reports fever was 99 - 100. The patient denies any fever today. Patient reports she is feeling better today. Reports thinks she is better. The patient ambulated to the exam room with a steady gait and was able to talk complete sentences without any SOB or difficulty breathing noted. The patients respirations are easy and unlabored during the exam. The patient was given an education hand out and educated about home quarantine guidelines. The patient was given time to ask questions. The patient acknowledged understanding of all provided information. The patient is aware if symptoms acutely worsen, please go directly the emergency department. The patient is aware if symptoms continue but are not getting worse recommendation to reach out to PCP. COVID-19 Suspected based on symptoms and exposure Testing ordered COVID 19 Testing documented in this encounter Plan of Treatment Scheduled Orders Name Type Priority Associated Diagnoses Orde r Schedule COVID-19 (FOR ALL PATIENTS) Lab Routine Suspected 2019 Novel Coronavirus Infection Ordered: 11/21/2019 Health Maintenance Due Date Last Done Comments Zoster Vaccines (1 of 2) 2012 Influenza Vaccine (FLU shot) (#1) 2019 08/06/2018, 05/04/2013 *DEPRESSION SCREENING,ANNUAL FOR PTS 12 AND OVER 08/08/2019 PAP SMEAR-EVERY 3 YRS,AGES 21-65 09/27/2019 09/26/2016, [...] 09/27/2018, 09/26/2016, 09/19/2015, Additional history exists MENINGOCOCCAL (MENACTRA/MENVEO) Aged Out No longer eligible based on patient's age to complete this topic Pneumococcal Vaccine: Pediatrics (0 to 5 Years) and At-Risk Patients (6 to 64 Years) Aged Out No longer eligible based on patient's age to complete this topic documented as of this encounter Implants Not on filedocumented as of this encounter Visit Diagnoses Diagnosis Suspected 2019 Novel Coronavirus Infection- Primary documented in this encounter Advance Directives Documents on File Type Date Recorded Patient Bookkeeping Service Sales Agent Expl anation Advanced Directive Advanced Directive Advanced Directive Advanced Directive Advanced Directive Advanced Directive 03/06/2014 11:39 AM Advanced Directive Advanced Directive
--- OUTSIDE RECORDS SUMMARY | 2023-04-06 06:22 | External Medical Summary | Summary of Care ---
Author Name Unknown Organization [place] [address] Care Team Providers Care Boilermaking Supervisor Name Role Phone Vanesa Solorzano DO Primary Care Provider + [phone] Reason for Visit * Reason Comments Order Request Encounter Details Date Type Department Care Team Description 12/13/2018 Telephone [facility] [address], [place] [address] Vnaesa Solorzano DO [address] [place] [address] [phone] Order Request Allergies No Known Allergiesdocumented as of this encounter (statuses as of 12/15/2018) Medications Medication Sig Dispensed Refills Start Date End Date Status TYLENOL 325 MG PO TABS uses as needed 0 Active Meloxicam (MOBIC) 7.5 MG TabletIndications:Arth ritis of right ankle Take 1 Tab by mouth daily. for pain. 30 Tab 11 08/06/2018 Active documented as of this encounter (statuses as of 12/15/2018) Active Problems Problem Noted Date Obesity, morbid (more than 100 lbs over ideal weight or BMI > 40) 01/08/2010 Overview: Per Obesity Protocol, #19 ICD-10 update of inactive term Obesity Dyslipidemia, goal LDL below 130 documented as of this encounter (statuses as of 12/15/2018) Resolved Problems Problem Noted Date Resolved Date Dyslipidemia, goal LDL below 100 09/15/2014 documented as of this encounter (statuses as of 12/15/2018) Immunizations Name Administration Dates Next Due Seasonal [...] encounter Miscellaneous Notes * Telephone Encounter - Vanesa Solorzano DO [...] Fax Number, if applicable: Call Back Number: [phone] documented in this encounter Plan of Treatment Upcoming Encounters Date Type Specialty Care Team Description 03/14/2019 Office Visit Family Medicine Vanesa Solorzano DO [address] [place] [address] [phone] Scheduled Orders Name Type Priority Associated Diagnoses [...] Documents on File Type Date Recorded Patient Registered Pharmacy Technician Expl anation Advanced Directive Advanced Directive Advanced Directive Advanced Directive Advanced Directive Advanced Directive 03/06/2014 11:39 AM Advanced Directive Advanced Directive
--- OUTSIDE RECORDS SUMMARY | 2023-04-06 06:22 | External Medical Summary | Summary of Care ---
Author Name Unknown Organization [place] [address] Care Team Providers Care Tool Machine Shop Supervisor Name Role Phone Vanesa Solorzano DO Primary Care Provider + [phone] Encounter Details Date Type Department Care Team Description 04/08/2019 Telephone [facility] [address] [place] [address] Vanesa Solorzano DO [address] [place] [address] [phone] Allergies No Known Allergiesdocumented as of this encounter (statuses as of 04/11/2019) Medications Medication Sig Dispensed Refills Start Date End Date Status TYLENOL 325 MG PO TABS uses as needed 0 Active Meloxicam (MOBIC) 7.5 MG TabletIndications:Arth ritis of right ankle Take 1 Tab by mouth daily. for pain. 90 Tab 1 03/14/2019 Active documented as of this encounter (statuses as of 04/11/2019) Active Problems Problem Noted Date Body mass index (BMI) of 45.0 to 49.9 in adult 04/04/2019 Overview: Per Obesity protocol Dyslipidemia, goal LDL below 130 documented as of this encounter (statuses as of 04/11/2019) Resolved Problems Problem Noted Date Resolved Date Obesity, morbid (more than 1 00 lbs over ideal weight or BMI > 40) 01/08/2010 04/08/2019 Overview: Per Obesity Protocol, #19 ICD-10 update of inactive term Dyslipidemia, goal LDL below 100 09/15/2014 Obesity 04/08/2019 Overview: Per Obesity protocol documented as of this encounter (statuses as of 04/11/2019) Immunizations Name Administration Dates Next Due Seasonal [...] encounter Miscellaneous Notes * Telephone Encounter - Argenis Kingsley OSA - 04/11/2019 4:41 PM EDT Patient has been notified of the message. Patient has no further questions. She will send an email to Dr. Solorzano if she's interested in seeing Podiatry. * Telephone Encounter - Helene Pina LPN [...] Documents on File Type Date Recorded Patient Payable Representative Expl anation Advanced Directive Advanced Directive Advanced Directive Advanced Directive Advanced Directive Advanced Directive 03/06/2014 11:39 AM Advanced Directive Advanced Directive
--- OUTSIDE RECORDS SUMMARY | 2023-04-06 06:22 | External Medical Summary | Summary of Care ---
Author Name Unknown Organization [place] [address] Care Team Providers Care Business Job Titles Name Role Phone Vanesa Solorzano DO Primary Care Provider + [phone] Reason for Visit * Reason Comments COVID-19 Screening Encounter Details Date Type Department Care Team Description 11/22/2019 Telephone [facility] [address] [place] [address] Vanesa Solorzano DO [address] [place] [address] COVID-19 Screening Allergies No Known Allergiesdocumented as of this encounter (statuses as of 11/22/2019) Medications Medication Sig Dispensed Refills Start Date End Date Status TYLENOL 325 MG PO TABS uses as needed 0 Active Meloxicam (MOBIC) 7.5 MG TabletIndications:Arth ritis of right ankle Take 1 Tab by mouth daily. for pain. 90 Tab 1 09/05/2019 Active documented as of this encounter (statuses as of 11/22/2019) Active Problems Problem Noted Date Body mass index (BMI) of 45.0 to 49.9 in adult 04/04/2019 Overview: Per Obesity protocol Dyslipidemia, goal LDL below 130 documented as of this encounter (statuses as of 11/22/2019) Resolved Problems Problem Noted Date Resolved Date Obesity, morbid (more than 1 00 lbs over ideal weight or BMI > 40) 01/08/2010 04/08/2019 Overview: Per Obesity Protocol, #19 ICD-10 update of inactive term Dyslipidemia, goal LDL below 100 09/15/2014 Obesity 04/08/2019 Overview: Per Obesity protocol documented as of this encounter (statuses as of 11/22/2019) Immunizations Name Administration Dates Next Due Seasonal [...] AM EDT documented as of this encounter Plan of [...] Documents on File Type Date Recorded Patient Devulcanizer Head Expl anation Advanced Directive Advanced Directive Advanced Directive Advanced Directive Advanced Directive Advanced Directive 03/06/2014 11:39 AM Advanced Directive Advanced Directive
--- OUTSIDE RECORDS SUMMARY | 2023-04-06 06:22 | External Medical Summary | Summary of Care ---
Author Name Unknown Organization [place] [address] Care Team Providers Care Operating Systems Programmer Name Role Phone Vanesa Solorzano DO Primary Care Provider + [phone] Encounter Details Date Type Department Care Team Description 04/08/2019 Telephone [facility] [address] [place] [address] Vanesa Solorzano DO [address] [place] [address] [phone] Allergies No Known Allergiesdocumented as of this [...] Documents on File Type Date Recorded Patient Machine Operator Transplanter Expl anation Advanced Directive Advanced Directive Advanced Directive Advanced Directive Advanced Directive Advanced Directive 03/06/2014 11:39 AM Advanced Directive Advanced Directive
--- OUTSIDE RECORDS SUMMARY | 2023-04-06 06:22 | External Medical Summary | Summary of Care ---
Author Name Unknown Organization [place] [address] Care Team Providers Care Application Integrator Name Role Phone Vanesa Solorzano DO Primary Care Provider + [phone] Reason for Referral * Precert (Routine) Status Reason Specialty Diagnoses / Procedures Referred By Contact Referred To Contact Pending Review Precert Cardiac Studies Diagnoses Chest pain, unspecified type Procedures ECHO, STRESS (DOBUTAMINE) W/CONTRAST Vanesa Solorzano DO [address] [place] [address] Reason for Visit * Reason Onset Date Comments Status Check Medication Administration 05/31/2020 Flu an d/or Pneumo Inj Encounter Details Date Type Department Care Team Description 05/31/2020 Office Visit [place] [facility] [address] [place] [address] Vanesa Solorzano DO [address] [place] [address] [phone] Dyslipidemia, goal LDL below 130*; Need for prophylactic vaccination and inoculation against influenza; Chest pain, unspecified type; Encounter for screening mammogram for breast cancer; Stress due to illness of family member Allergies No Known Active Allergiesdocumented as of this encounter (statuses as of 05/31/2020) Medications Medication Sig Dispensed Refills Start Date [...] as of this encounter (statuses as of 05/31/2020) Active Problems Problem Noted Date Body mass index (BMI) of 45.0 to 49.9 in adult 04/04/2019 Overview: Per Obesity protocol Dyslipidemia, goal LDL below 130 documented as of this encounter (statuses as of 05/31/2020) Resolved Problems Problem Noted Date Resolved Date Obesity, morbid (more than 1 00 lbs over ideal weight or BMI > 40) 01/08/2010 04/08/2019 Overview: Per Obesity Protocol, #19 ICD-10 update of inactive term Dyslipidemia, goal LDL below 100 09/15/2014 Obesity 04/08/2019 Overview: Per Obesity protocol documented as of this encounter (statuses as of 05/31/2020) Immunizations Name Administration Dates Next Due Seasonal [...] Sign Reading Time Taken Comments Blood Pressure 126/74 05/31/2020 8:37 AM EST Pulse 72 05/31/2020 8:37 AM EST Temperature 36.6 C (97.9 F) 05/31/2020 8:37 AM ES T Respiratory Rate 18 05/31/2020 8:37 AM EST Oxygen Saturation - - Inhaled Oxygen Concentration - - Weight 127.3 kg (280 lb 11.2 oz) 05/31/2020 8:37 AM EST Height 162.6 cm (5' 4") 05/31/2020 8:37 AM EST Body Mass Index 48.18 05/31/2020 8:37 AM EST documented in this encounter Patient Instructions * Patient Instructions* Helene Pina LPN - 05/31/2020 8:36 AM EST ~~PATIENT INSTRUCTIONS FOR FLU SHOT~~ Possible side effects of influenza vaccine, (flu shot), are usually mild and include: 1. Soreness or redness at injection site 2. Low grade fever 3. Body aches You may use Tylenol/Acetaminophen as needed for these symptoms. LET YOUR DOCTOR KNOW IMMEDIATELY IF YOU HAVE DIFFICULTY BREATHING OR SWALLOWING, EXPERIENCE ITCHINGOF FEET OR HANDS, HAVE SWELLING OF EYES, FACE OR INSIDE OF NOSE. documented in this encounter Progress Notes * Sissy Rock LPN - 05/31/2020 9:57 AM EST EKG done per Dr. Solorzano's order. * Vanesa Solorzano DO - 05/31/2020 9:09 AM EST Subjective: Jacque Spivey is a 59 year old female. Chief Complaint Patient presents with Status Check Medication Administration Flu and/or Pneumo Inj HPI: Jacque presents today for a follow up. She carries hx of Dyslipdiemia, Obesity and chronic rightfoot pain. She is mobic daily for this, this helps the pain. She has been getting chest pain in the Middle of her chest. Will notice this when she is walking. Intermittent about 1 month. Brother had a [place] And had Coronary bypass This year at 61. Non smoker. Chol is stable. Non diabetic. No hx of HTN. Stress with her son and mental health issues. Tearful today. Willing to take as needed medication. For sleep and stress. Past due for mammogram and pap test . PHM: Patient Active Problem List Diagnosis Code Dyslipidemia, goal LDL below 130 E78.5 Body mass index (BMI) of 45.0 to 49.9 in adult ([facility]) Z68.42 Current Outpatient Medications Medication Sig Dispense Refill Meloxicam 7.5 MG Tablet TAKE 1 TAB BY MOUTH DAILY. FOR PAIN. 90 Tab 1 TYLENOL 325 MG PO TABS uses as needed Review of patient's allergies indicates: No Known Allergies Objective: BP 126/74 | Pulse 72 | Temp 36.6 C (97.9 F) (Tympanic) | Resp 18 | Ht (!) 1.626 m (5' 4") | Wt 127.3 kg (280 lb 11.2 oz) | BMI 48.18 kg/m | BSA 2.4 m Physical Exam: General: alert, healthy and no distress Heart: regular rate & rhythm, no murmurs and no gallops Lungs: chest symmetric with normal AP diameter, no chest deformities noted, no chest wall tenderness, lungs clear to auscultation Abdomen: abdomen soft, non-tender, normal bowel sounds and no masses or organomegaly Extremities: no edema EKG: normal sinus. Possible LVH ASSESSMENT/PLAN: Dyslipidemia, goal LDL below 130 (Primary) - LIPID PANEL WITH DIRECT LDL IF TRIGLYCERIDE IS ELEVATED; Future; Expected date: 05/31/2020 - BASIC METAB PANEL, BMP; Future; Expected date: 05/31/2020 Need for prophylactic vaccination and inoculation against influenza - INFLUENZA VACC, QUAD, PF, 6 MONTHS & UP, 0.5 ML, IM Chest pain, unspecified type - EKG; Future; Expected date: 05/31/2020 - Nitroglycerin 0.3 MG Sublingual Tablet Sublingual (NITROSTAT); Place 1 Tab under the tongue as needed for Pain, Chest. May repeat 3 times. If chest pain continues, call 911. - EKG - ECHO, STRESS (DOBUTAMINE) W/CONTRAST; Future; Expected date: 05/31/2020 Encounter for screening mammogram for breast cancer - MAMMOGRAM DIAGNOSTIC BILATERAL Stress due to illness of family member - clonazePAM 0.5 MG Oral Tablet (KlonoPIN); Take 1 Tab by mouth 2 times a day as needed for Anxietyor Insomnia. Other orders - PAP SCREEN; Future; Expected date: 05/31/2020 Check-out note: Needs stress test, pls schedule. Needs labs. Dx mammogram And schedule with me for a pap test Vanesa Solorzano DO * Helene Pina LPN - 05/31/2020 8:36 AM EST PRE - ADMINISTRATION DOCUMENTATION Are you allergic to latex? No Are you experiencing any cold symptoms or fever? No Have you had Guillain-Balm Syndrome (an illness that causes paralysis) within the last 6 weeks? No Have you had the flu shot in the past? YES Have you ever had a reaction to the flu shot? No Helene Pina LPN, 05/31/2020 8:36 AM Immunization Administration Documentation Time Out Procedure Performed: Yes Patient Identified (Ask Name/Date of ): Yes Does the patient have a fever greater than 101 degrees today? No Patient allergic to latex? No VFC Stock: No Immunization(s) verified: Yes, Immunization Name: Flu, VIS Sheet(s) given: Yes Verified Side and Site: Yes Verified Shot(s) with Parent(s)/Patient: Yes Patient has been verbally educated on the need or importance of Cervical Cancer Screening. Patient does not want PAP today. Patient will schedule a future appointment in our office with Dr. Solorzano.Follow up/Check out notes completed for front office to schedule PAP during check out. documented in this encounter Nursing Notes * Helene Pina LPN - 05/31/2020 8:33 AM EST Chief Complaint Patient presents with Status Check documented in this encounter Plan of Treatment Upcoming Encounters Date Type Specialty Care Team Description 06/25/2020 Imaging Radiology Scheduled Orders Name Type Priority Associated Diagnoses Orde r Schedule PAP SCREEN Pathology Routine Expected: 05/31/2020, Expires: 11/28/2020 LIPID PANEL WITH DIRECT LDL IF TRIGLYCERIDE IS ELEVATED Lab Routine Dyslipidemia, goal LDL below 130 Expected: 05/31/2020, Expires: 05/31/2021 EKG EKG Routine Chest pain, unspecified type Expected: 05/31/2020 (Approximate), Expires: 06/30/2021 MAMMOGRAM DIAGNOSTIC BILATERAL Medical Imaging Routine Encounter for screening mammogram for breast cancer Ordered: 05/31/2020 ECHO, STRESS (DOBUTAMINE) W/CONTRAST Echocardiology Routine Chest pain, unspecified type Expected: 05/31/2020, Expires: 06/30/2021 Health Maintenance Due Date Last Done Comments Zoster Vaccines (1 of 2) 2012 *DEPRESSION SCREENING,ANNUAL FOR PTS 12 AND OVER [...] as of this encounter Visit Diagnoses Diagnosis Dyslipidemia, goal LDL below 130- Primary Other and unspecified hyperlipidemia Need for prophylactic vaccination and inoculation against influenza Chest pain, unspecified type Encounter for screening mammogram for breast cancer Stress due to illness of family member Other health problem within the family documented in this encounter Advance Directives Documents on File Type Date Recorded Patient Etcher Apprentice Expl anation Advanced Directive Advanced Directive Advanced Directive Advanced Directive Advanced Directive Advanced Directive 03/06/2014 11:39 AM Advanced Directive Advanced Directive Advanced Directive Advanced Directive Advanced Directive Advanced Directive
--- OUTSIDE RECORDS SUMMARY | 2023-04-06 06:22 | External Medical Summary ---
Author Name Unknown Address [address] [id number] Phone Organization K01:[facility] [address] [id number] Laboratory Report Ordering Provider Test Date Status DEANNA PENNINGTON 09/27/2018 08:41:00 Final Observation Date Value Abnormality Reference Status BUN 09/27/2018 13:03 16 6-20 Fin al Creatinine 09/27/2018 13:03 0.7 0.5-1.0 Fi nal Performing Location [facility] [address] [facility] [address]
--- OUTSIDE RECORDS SUMMARY | 2023-04-06 06:22 | External Medical Summary | Summary of Care ---
Author Name Unknown Organization [place] [address] Care Team Providers Care Manufacturing Design Engineer Name Role Phone Vanesa Solorzano DO Primary Care Provider Reason for Visit * Reason Comments FYI Encounter Details Date Type Department Care Team Description 11/21/2019 Telephone [facility] [address], [place] [id number] Vanesa Solorzano DO [address], [place] [id number] FYI Allergies No Known Allergiesdocumented as of this [...] AM EDT documented as of this encounter Miscellaneous Notes * Telephone Encounter - Helene Pina LPN - 11/21/2019 8:56 AM EDT Please see RN encounter. documented in this encounter Plan of Treatment Upcoming Encounters Date Type Specialty Care Team Description 11/21/2019 Pandemic Screening Infectious Disease [facility] [address] [facility] [address] [phone] Health Maintenance Due Date Last Done Comments [...] Documents on File Type Date Recorded Patient Social Work Lecturer Expl anation Advanced Directive Advanced Directive Advanced Directive Advanced Directive Advanced Directive Advanced Directive 03/06/2014 11:39 AM Advanced Directive Advanced Directive
--- OUTSIDE RECORDS SUMMARY | 2023-04-06 06:22 | External Medical Summary | Summary of Care ---
Author Name Unknown Organization [place] [address] Care Team Providers Care Cement Handler Name Role Phone Gorge Huerta DO Primary Care Provider + [phone] Reason for Visit * Reason Comments Order Request Encounter Details Date Type Department Care Team Description 12/13/2018 Telephone [facility] [address], [place] [id number] Gorge Huerta DO [address] [place] [address] [phone] Order Request Allergies No Known Allergiesdocumented as of this encounter (statuses as of 12/22/2018) Medications Medication Sig Dispensed Refills Start Date End Date Status TYLENOL 325 MG PO TABS uses as needed 0 Active Meloxicam (MOBIC) 7.5 MG TabletIndications:Arth ritis of right ankle Take 1 Tab by mouth daily. for pain. 30 Tab 11 08/06/2018 Active documented as of this encounter (statuses as of 12/22/2018) Active Problems Problem Noted Date Obesity, morbid (more than 100 lbs over ideal weight or BMI > 40) 01/08/2010 Overview: Per Obesity Protocol, #19 ICD-10 update of inactive term Obesity Dyslipidemia, goal LDL below 130 documented as of this encounter (statuses as of 12/22/2018) Resolved Problems Problem Noted Date Resolved Date Dyslipidemia, goal LDL below 100 09/15/2014 documented as of this encounter (statuses as of 12/22/2018) Immunizations Name Administration Dates Next Due Seasonal [...] encounter Miscellaneous Notes * Addendum Note - oGrge Huerta DO - 12/22/2018 2:37 PM EDT Addended by: GORGE HUERTA on: 12/22/2018 02:37 PM Modules accepted: Orders * Telephone Encounter - Christi Yang OSA - 12/21/2018 12:53 PM EDT Pt calling to schedule diagnostic mammogram. No US ordered with mammogram. Please contact pt to schedule once US is ordered. [phone] * Telephone Encounter - Shona Ngo OSA - 12/17/2018 10:43 AM EDT LMOM and letter sent 12/17/18 [facility] * Telephone Encounter - Shona Ngo OSA - 12/15/2018 2:31 PM EDT LMOM 12/15/18 [facility] * Telephone Encounter - Gorge Huerta DO - 12/15/2018 1:46 PM EDT R [...] Fax Number, if applicable: Call Back Number: [phone] documented in this encounter Plan of Treatment Upcoming Encounters Date Type Specialty Care Team Description 03/14/2019 Office Visit Family Medicine Gorge Huerta DO [address] [place] [address] [phone] Scheduled Orders Name Type Priority Associated Diagnoses Orde r Schedule MAMMOGRAM DIAGNOSTIC RIGHT Medical Imaging Routine Abnormal mammogram Ordered: 12/15/2018 BREAST LIMITED RIGHT Medical Imaging Routine Abnormal mammogram Ordered: 12/22/2018 Health Maintenance Due Date Last Done Comments [...] Documents on File Type Date Recorded Patient Veterinary Receptionist Expl anation Advanced Directive Advanced Directive Advanced Directive Advanced Directive Advanced Directive Advanced Directive 03/06/2014 11:39 AM Advanced Directive Advanced Directive
--- OUTSIDE RECORDS SUMMARY | 2023-04-06 06:22 | External Medical Summary | Summary of Care ---
Author Name Unknown Organization [place] [address] Care Team Providers Care Union Organiser Name Role Phone Vanesa Solorzano DO Primary Care Provider + [phone] Reason for Visit * Reason Comments Order Request Encounter Details Date Type Department Care Team Description 12/13/2018 Telephone [facility] [address] [place], [place] [address] Vanesa Solorzano DO [address] [place] [address] [phone] Order Request Allergies No Known Allergiesdocumented as [...] encounter Miscellaneous Notes * Telephone Encounter - Shona Ngo OSA [...] Fax Number, if applicable: Call Back Number: [phone] documented in this encounter Plan of Treatment Upcoming Encounters Date Type Specialty Care Team Description 03/14/2019 Office Visit Family Medicine Vanesa Solorzano DO [address] [place] [address] [phone] Scheduled Orders Name Type Priority Associated Diagnoses [...] Documents on File Type Date Recorded Patient Knot Saw Operator Expl anation Advanced Directive Advanced Directive Advanced Directive Advanced Directive Advanced Directive Advanced Directive 03/06/2014 11:39 AM Advanced Directive Advanced Directive
--- OUTSIDE RECORDS SUMMARY | 2023-04-06 06:22 | External Medical Summary | Summary of Care ---
Author Name Unknown Organization [place] [address] Care Team Providers Care Ticket Printer And Tagger Name Role Phone Vanesa Solorzano DO Primary Care Provider + [phone] Reason for Referral * Precert (Routine) Status Reason Specialty Diagnoses / Procedures Referred By Contact Referred To Contact Pending Review Precert Cardiac Studies Diagnoses Chest pain, unspecified type Procedures ECHO, STRESS (DOBUTAMINE) W/CONTRAST Vanesa Solorzano DO [address] [place] [address] Reason for Visit * Reason Onset Date Comments Status Check Medication Administration 05/31/2020 Flu an d/or Pneumo Inj Encounter Details Date Type Department Care Team Description 05/31/2020 Office Visit [facility] [place] [address] [place] [address] Vanesa Solorzano DO [address] [place] [address] [phone] Dyslipidemia, goal LDL below 130*; Need for [...] Intermittent about 1 month. Brother had a [place] And had Coronary bypass This year at [...] (BMI) of 45.0 to 49.9 in adult ([facility]) Z68.42 Current Outpatient Medications Medication Sig Dispense [...] symptoms or fever? No Have you had Guillain-Zoar Syndrome (an illness that causes paralysis) within [...] Specialty Care Team Description 06/25/2020 Imaging Radiology 06/25/2020 Imaging Cardiac Studies , Computer Help Desk Specialist [address] [facility] [place] [address] [phone] Pending Results Name Type Priority Associated Diagnoses Date /Time LIPID PANEL WITH DIRECT LDL IF TRIGLYCERIDE IS ELEVATED Lab Routine Dyslipidemia, goal LDL below 130 05/31/2020 10:38 AM EST Scheduled Orders Name Type Priority Associated Diagnoses [...] Documents on File Type Date Recorded Patient Ware Tester Expl anation Advanced Directive Advanced Directive Advanced Directive Advanced Directive Advanced Directive Advanced Directive 03/06/2014 11:39 AM Advanced Directive Advanced Directive Advanced Directive Advanced Directive Advanced Directive Advanced Directive Advanced Directive
--- OUTSIDE RECORDS SUMMARY | 2023-04-06 06:22 | External Medical Summary | Summary of Care ---
Author Name Unknown Organization [place] [address] Care Team Providers Care Pottery Decorator Name Role Phone Vanesa Solorzano DO Primary Care Provider + [phone] Reason for Visit * Reason Onset Date Comments Cardiology Study 06/25/2020 Dobutamine * Precert (Routine) Status Reason Specialty Diagnoses / Procedures Referred By Contact Referred To Contact Closed Precert Cardiac Studies Diagnoses Chest pain, unspecified type Procedures ECHO, STRESS (DOBUTAMINE) W/CONTRAST Vanesa Solorzano DO [address] [place] [address] Encounter Details Date Type Department Care Team Description 06/25/2020 Imaging Cardiac Studies, [facility] [address] [place] [address] Gw, Strapper And Buffer [address] [place] [address] [phone] Chest pain, unspecified type Allergies No Known Active Allergiesdocumented as of this encounter (statuses as of 06/25/2020) Medications Medication Sig Dispensed Refills Start Date [...] as of this encounter (statuses as of 06/25/2020) Active Problems Problem Noted Date Body mass index (BMI) of 45.0 to 49.9 in adult 04/04/2019 Overview: Per Obesity protocol Dyslipidemia, goal LDL below 130 documented as of this encounter (statuses as of 06/25/2020) Resolved Problems Problem Noted Date Resolved Date Obesity, morbid (more than 1 00 lbs over ideal weight or BMI > 40) 01/08/2010 04/08/2019 Overview: Per Obesity Protocol, #19 ICD-10 update of inactive term Dyslipidemia, goal LDL below 100 09/15/2014 Obesity 04/08/2019 Overview: Per Obesity protocol documented as of this encounter (statuses as of 06/25/2020) Immunizations Name Administration Dates Next Due Seasonal [...] as of this encounter Progress Notes * Jose C Neely TECH - 06/25/2020 10:21 AM EST Patient arrived in echo lab and identified by name and date of . Procedure and risk factors explained and questions answered. Informed consent obtained. IV site created with #22 gauge in dorsum right hand at 09:58 with one Attempt(s) made. Catheter capped and flushed with 1cc of NSS. NSS lock discontinued post Dobutamine Stress Echo, IV site unremarkable with dressing dry and intact. IV Dobutamine 250mg/250ml infused using the established protocol. See final report. Dobutamine Stress echo completed today without incident. Vital Signs stable and patient denies chest pain, chest discomfort or shortness of breath. Additional medications given during Dobutamine Stress Echo: Dobutamine [facility] 4231-4921-89; Lot [id number]; Exp. ; Metoprolol [facility] 66380-283-82; Lot [id number]; Exp. 2020-06; Atropine [facility] [address]-6; Lot [id number]; Exp. 06-16; Metoprolol 3.0 mg IV total given; 2.0 ml (2.0 mg) wasted from single-use vial; Atropine 0.3 mg IV given; 7.0 ml (0.7 mg) wasted from single-use syringe documented in this encounter Plan of Treatment Health Maintenance Due Date Last Done Comments Zoster Vaccines (1 of 2) 2012 PAP SMEAR-EVERY 3 YRS,AGES 21-65 09/27/2019 09/26/2016, 09/09/2013, 12/16/2011, Additional history exists BREAST CANCER SCREENING DISCUSSION YEARLY AGES 40-75 04/05/2020 04/05/2019, 09/27/2018, 09/21/2018, Additional history exists DTaP,Tdap,and Td Vaccines (2 [...] as of this encounter Visit Diagnoses Diagnosis Chest pain, unspecified type documented in this encounter Advance Directives Documents on File Type Date Recorded Patient Independent Agent Music Education Expl anation Advanced Directive Advanced Directive Advanced Directive Advanced Directive Advanced Directive Advanced Directive 03/06/2014 11:39 AM Advanced Directive Advanced Directive Advanced Directive Advanced Directive Advanced Directive Advanced Directive Advanced Directive Advanced Directive
--- OUTSIDE RECORDS SUMMARY | 2023-04-06 06:22 | External Medical Summary | Summary of Care ---
Author Name Unknown Organization [place] [address] Care Team Providers Care Cloud Services Architect Name Role Phone Vanesa Solorzano DO Primary Care Provider + [phone] Reason for Visit * Reason Comments Order Request Encounter Details Date Type Department Care Team Description 12/13/2018 Telephone [facility] [address], [place] [id number] Vanesa Solorzano DO [address] [place] [address] [phone] Order Request Allergies No Known Allergiesdocumented as of this encounter (statuses as of 12/17/2018) Medications Medication Sig Dispensed Refills Start Date End Date Status TYLENOL 325 MG PO TABS uses as needed 0 Active Meloxicam (MOBIC) 7.5 MG TabletIndications:Arth ritis of right ankle Take 1 Tab by mouth daily. for pain. 30 Tab 11 08/06/2018 Active documented as of this encounter (statuses as of 12/17/2018) Active Problems Problem Noted Date Obesity, morbid (more than 100 lbs over ideal weight or BMI > 40) 01/08/2010 Overview: Per Obesity Protocol, #19 ICD-10 update of inactive term Obesity Dyslipidemia, goal LDL below 130 documented as of this encounter (statuses as of 12/17/2018) Resolved Problems Problem Noted Date Resolved Date Dyslipidemia, goal LDL below 100 09/15/2014 documented as of this encounter (statuses as of 12/17/2018) Immunizations Name Administration Dates Next Due Seasonal [...] Fax Number, if applicable: Call Back Number: [phone] documented in this encounter Plan of Treatment Upcoming Encounters Date Type Specialty Care Team Description 03/14/2019 Office Visit Family Medicine Vanesa Solorzano, DO [address] [place] [address] [phone] Scheduled Orders Name Type Priority Associated Diagnoses [...] Documents on File Type Date Recorded Patient Process Design Chemical Engineer Expl anation Advanced Directive Advanced Directive Advanced Directive Advanced Directive Advanced Directive Advanced Directive 03/06/2014 11:39 AM Advanced Directive Advanced Directive
--- OUTSIDE RECORDS SUMMARY | 2023-04-06 06:22 | External Medical Summary ---
Author Name Unknown Address Unknown Organization R:IT USE ONLY!!! Laboratory Report Ordering Provider Test Date Status RIVERA DURAN 11/21/2019 09:13:00 Final Observation Date Value Abnormality Reference (Units ) Status SPECIMEN SOURCE 11/21/2019 09:13 PATIENT SERVICES TECHNICIAN SWAB Final SARS Coronavirus 2 11/21/2019 21:55 NEGATIVE NEG Final Performing Location IT USE ONLY!!!
--- OUTSIDE RECORDS SUMMARY | 2023-04-06 06:22 | External Medical Summary | Summary of Care ---
Author Name Unknown Organization [place] [address] Care Team Providers Care Shipwright Apprentice Name Role Phone Vanesa Solorzano DO Primary Care Provider Reason for Visit * Reason Comments FYI Encounter Details Date Type Department Care Team Description 11/21/2019 Telephone [facility] [address], [place] [address] Vanesa Solorzano DO [address] [place], [place] [id number] FYI Allergies No Known Allergiesdocumented as of [...] Screening Infectious Disease Norbert Alberto [facility] [place] [address] [phone] Health Maintenance Due Date Last Done Comments [...] Documents on File Type Date Recorded Patient Hvac Engineer Expl anation Advanced Directive Advanced Directive Advanced Directive Advanced Directive Advanced Directive Advanced Directive 03/06/2014 11:39 AM Advanced Directive Advanced Directive
--- OUTSIDE RECORDS SUMMARY | 2023-04-06 06:22 | External Medical Summary ---
Author Name Unknown Address Unknown Organization [id number] [Ning] (65,7974,1,,) Laboratory Report Ordering Provider Test Date Status MICHEL DE OLIVEIRA 05/31/2020 10:38:00 Final Observation Date Value Abnormality Reference (Units ) Status Fasting status - Reported 05/31/2020 10:42 >8 HOURS (hours) Final Triglyceride 05/31/2020 15:12 131 0-174 (mg/dL) Final Performing Location TD [Ning](50,6323,1,,)
--- OUTSIDE RECORDS SUMMARY | 2023-04-06 06:22 | External Medical Summary ---
Author Name Unknown Address [address] [place] [address] Phone Organization [id number] [place] [address] Laboratory Report Ordering Provider Test Date Status DEANNA PENNINGTON 09/27/2018 08:41:00 Final Observation Date Value Abnormality Reference Status Fasting status Patient Ql Reported 09/27/2018 08:43 >8 HOURS Final Triglyceride 09/27/2018 13:03 100 <200 Final Performing Location [facility] [address] [place] [address]
--- OUTSIDE RECORDS SUMMARY | 2023-04-06 06:22 | External Medical Summary | Summary of Care ---
Author Name Unknown Organization [place] [address] Care Team Providers Care Wagon Driver Salesperson Name Role Phone Vanesa Solorzano DO Primary Care Provider + [phone] Reason for Visit * Reason Comments Order Request Encounter Details Date Type Department Care Team Description 12/13/2018 Telephone [facility] [address] [place], [place] [id number] Vanesa Solorzano DO [address] [place] [address] [phone] Order Request Allergies No Known Allergiesdocumented as [...] Fax Number, if applicable: Call Back Number: [phone] documented in this encounter Plan of Treatment Upcoming Encounters Date Type Specialty Care Team Description 03/14/2019 Office Visit Family Medicine Vanesa Solorzano DO [address] [place] [address] [phone] Scheduled Orders Name Type Priority Associated Diagnoses [...] Documents on File Type Date Recorded Patient Audio Production Manager Expl anation Advanced Directive Advanced Directive Advanced Directive Advanced Directive Advanced Directive Advanced Directive 03/06/2014 11:39 AM Advanced Directive Advanced Directive
--- OUTSIDE RECORDS SUMMARY | 2023-04-06 06:22 | External Medical Summary | Summary of Care ---
Author Name Unknown Organization [place] [address] Care Team Providers Care Power Saw Operator Name Role Phone Vanesa Solorzano DO Primary Care Provider Reason for Visit * Reason Comments FYI mammogram Encounter Details Date Type Department Care Team Description 10/11/[address] [facility] [address] [facility] [place] [address] Vanesa Solorzano DO [address] [place] [id number] FYI (mammogram) Allergies No Known Allergiesdocumented as of this encounter (statuses as of 10/11/2019) Medications Medication Sig Dispensed Refills Start Date End Date Status TYLENOL 325 MG PO TABS uses as needed 0 Active Meloxicam (MOBIC) 7.5 MG TabletIndications:Arth ritis of right ankle Take 1 Tab by mouth daily. for pain. 90 Tab 1 09/05/2019 Active documented as of this encounter (statuses as of 10/11/2019) Active Problems Problem Noted Date Body mass index (BMI) of 45.0 to 49.9 in adult 04/04/2019 Overview: Per Obesity protocol Dyslipidemia, goal LDL below 130 documented as of this encounter (statuses as of 10/11/2019) Resolved Problems Problem Noted Date Resolved Date Obesity, morbid (more than 1 00 lbs over ideal weight or BMI > 40) 01/08/2010 04/08/2019 Overview: Per Obesity Protocol, #19 ICD-10 update of inactive term Dyslipidemia, goal LDL below 100 09/15/2014 Obesity 04/08/2019 Overview: Per Obesity protocol documented as of this encounter (statuses as of 10/11/2019) Immunizations Name Administration Dates Next Due Seasonal [...] Travel End documented as of this encounter Plan of Treatment Upcoming Encounters Date Type Specialty Care Team Description 11/17/2019 Office Visit Family Medicine Vanesa Solorzano, DO [address] [place] [address] [phone] Health Maintenance Due Date Last Done Comments [...] Documents on File Type Date Recorded Patient Metal Bench Patternmaker Expl anation Advanced Directive Advanced Directive Advanced Directive Advanced Directive Advanced Directive Advanced Directive 03/06/2014 11:39 AM Advanced Directive Advanced Directive
--- OUTSIDE RECORDS SUMMARY | 2023-04-06 06:22 | External Medical Summary | Summary of Care ---
Author Name Unknown Organization [place] [address] Care Team Providers Care Maintenance Mechanic Engine Name Role Phone Gorge Huerta DO Primary Care Provider + [phone] Reason for Visit * Reason Comments eRx-Medication Refill Encounter Details Date Type Department Care Team Description 03/02/2020 Refill [facility] [address] [place] [address] Gorge Huerta DO [address] [place] [address] [phone] Encounter for long-term (current) use of medications*; Arthritis of right ankle Allergies No Known Allergiesdocumented as of this encounter (statuses as of 03/12/2020) Medications Medication Sig Dispensed Refills Start Date End Date Status TYLENOL 325 MG PO TABS uses as needed 0 Active Meloxicam 7.5 MG TabletIndications: Arthritis of right ankle TAKE 1 TAB BY MOUTH DAILY. FOR PAIN. 90 Tab 1 03/12/2020 Active Meloxicam (MOBIC) 7.5 MG TabletIndications: Arthritis of right ankle Take 1 Tab by mouth daily. for pain. 90 Tab 1 09/05/2019 03/12/2020 Discontinued documented as of this encounter (statuses as of 03/12/2020) Active Problems Problem Noted Date Body mass index (BMI) of 45.0 to 49.9 in adult 04/04/2019 Overview: Per Obesity protocol Dyslipidemia, goal LDL below 130 documented as of this encounter (statuses as of 03/12/2020) Resolved Problems Problem Noted Date Resolved Date Obesity, morbid (more than 1 00 lbs over ideal weight or BMI > 40) 01/08/2010 04/08/2019 Overview: Per Obesity Protocol, #19 ICD-10 update of inactive term Dyslipidemia, goal LDL below 100 09/15/2014 Obesity 04/08/2019 Overview: Per Obesity protocol documented as of this encounter (statuses as of 03/12/2020) Immunizations Name Administration Dates Next Due Seasonal [...] encounter Miscellaneous Notes * Telephone Encounter - Gorge Huerta DO - 03/12/2020 12:59 PM EDT Signed Prescriptions: Disp Refills Meloxicam 7.5 MG Tablet 90 Tab 1 Sig: TAKE 1 TAB BY MOUTH DAILY. FOR PAIN. Authorizing Provider: GORGE HUERTA * Telephone Encounter - Shanae Claros, [facility] - 03/03/2020 11:17 AM EDT Pending Prescriptions: Disp Refills Meloxicam 7.5 MG Tablet [Pharmacy Med Nam*90 Tab 1 Sig: TAKE 1 TAB BY MOUTH DAILY. FOR PAIN. * Telephone Encounter - Shanae Claros [facility] - 03/03/2020 11:16 AM EDT Unable to authorize medication refills for meloxicam at this time. Part of the protocol criteria used for refill authorization was not satisfied. Patient needs CBC and CMP. Please approve if appropriate. Thank you, Shanae Claros, PharmD Clinical Pharmacist Telepharmacy 03/03/2020, 11:16 AM Pending Prescriptions: Disp Refills Meloxicam 7.5 MG Tablet [Pharmacy Med Nam*90 Tab 1 Sig: TAKE 1 TAB BY MOUTH DAILY. FOR PAIN. Last Office/Telemedicine Visit: 03/14/2019 Next Office Visit: No Future Appointments If no future appointments scheduled, and last appointment is greater than a year ago, please schedule patient for a follow-up appointment Last date the medication was ordered: 09/05/19 Pharmacy: [id number] [address] [facility] Is this request for a controlled substance?No Urine Drug Screen:No results found for this or any previous visit. Patient Phone Numbers Labs: Lab Results Component Value Date/Time CREAT 0.7 09/27/2018 08:41 AM POTASSIUM 4.5 09/27/2018 08:41 AM TSH 1.69 09/15/2014 09:44 AM LDLCALC 103 09/27/2018 08:41 AM LDLDIRECT 107 09/15/2014 09:44 AM ALT 20 09/26/2016 09:16 AM documented in this encounter Plan of Treatment Scheduled Orders Name Type Priority Associated Diagnoses Orde r Schedule CBC Lab Routine Encounter for long-term (current) use of medications Expected: 03/17/2020 (Approximate), Expires: 03/03/2021 COMPR METAB PANEL Lab Routine Encounter for long-term (current) use of medications Expected: 03/17/2020 (Approximate), Expires: 03/03/2021 Health Maintenance Due Date Last Done Comments Zoster Vaccines (1 of 2) 2012 *DEPRESSION SCREENING,ANNUAL FOR PTS 12 AND OVER 08/08/2019 PAP SMEAR-EVERY 3 YRS,AGES 21-65 09/27/2019 09/26/2016, 09/09/2013, 12/16/2011, Additional history exists Influenza Vaccine (FLU shot) (#1) 2020 08/06/2018, 05/04/2013 BREAST CANCER SCREENING DISCUSSION YEARLY [...] this encounter Visit Diagnoses Diagnosis Encounter for long-term (current) use of medications- Primary Encounter for long-term (current) use of other medications Arthritis of right ankle Unspecified arthropathy, ankle and foot documented in this encounter Advance Directives Documents on File Type Date Recorded Patient Shield Operator Expl anation Advanced Directive Advanced Directive Advanced Directive Advanced Directive Advanced Directive Advanced Directive 03/06/2014 11:39 AM Advanced Directive Advanced Directive
--- OUTSIDE RECORDS SUMMARY | 2023-04-06 06:22 | External Medical Summary ---
Author Name Unknown Address [facility] [place] [address] Phone Organization [id number]:[address] [address] Laboratory Report Ordering Provider Test Date Status MICHEL DE OLIVEIRA 05/31/2020 10:38:00 Final Observation Date Value Abnormality Reference (Units ) Status WBC, Total 05/31/2020 15:32 11.32 Above high normal 4.00-10.80 (K/uL) Final RBC 05/31/2020 15:32 5.15 3.85-5.15 (M/uL) Final Hemoglobin 05/31/2020 15:32 14.0 12.0-15.3 (g/dL) Final HCT 05/31/2020 15:32 45.5 Above high normal 36.0-45.2 (%) Final MCV 05/31/2020 15:32 88.3 81.5-97.5 (fL) Final MCH 05/31/2020 15:32 27.2 27.0-34.0 (pg) Final MCHC 05/31/2020 15:32 30.8 Below low normal 32.0-36.0 (g/dL) Final RDW 05/31/2020 15:32 13.9 11.5-15.5 (%) Final Platelets 05/31/2020 15:32 356 140-400 (K/uL) Final MPV 05/31/2020 15:32 10.2 6.6-11.1 (fL) Final Nucleated erythrocytes/100 leukocytes [Ratio] in Blood by Automated count 05/31/2020 15:32 0 0 (/100 WBCs) Final Performing Location [address] [address]
--- OUTSIDE RECORDS SUMMARY | 2023-04-06 06:22 | External Medical Summary | Summary of Care ---
Author Name Unknown Organization [place] [address] Care Team Providers Care Molding And Trim Installer Name Role Phone Gorge Huerta DO Primary Care Provider + [phone] Reason for Visit * Reason Comments Order Request Encounter Details Date Type Department Care Team Description 12/13/2018 Telephone [facility] [address], [place] [address] Gorge Huerta DO [address] [place] [address] [phone] Order Request Allergies No Known Allergiesdocumented as of this encounter (statuses as of 12/23/2018) Medications Medication Sig Dispensed Refills Start Date End Date Status TYLENOL 325 MG PO TABS uses as needed 0 Active Meloxicam (MOBIC) 7.5 MG TabletIndications:Arth ritis of right ankle Take 1 Tab by mouth daily. for pain. 30 Tab 11 08/06/2018 Active documented as of this encounter (statuses as of 12/23/2018) Active Problems Problem Noted Date Obesity, morbid (more than 100 lbs over ideal weight or BMI > 40) 01/08/2010 Overview: Per Obesity Protocol, #19 ICD-10 update of inactive term Obesity Dyslipidemia, goal LDL below 130 documented as of this encounter (statuses as of 12/23/2018) Resolved Problems Problem Noted Date Resolved Date Dyslipidemia, goal LDL below 100 09/15/2014 documented as of this encounter (statuses as of 12/23/2018) Immunizations Name Administration Dates Next Due Seasonal [...] Telephone Encounter - Shona Ngo OSA - 12/23/2018 8:15 AM EDT Letter sent 12/23/18 [facility] * Telephone Encounter - Shona Ngo OSA - 12/22/2018 3:13 PM EDT LMOM 12/22/18 [facility] * Addendum Note - Gorge Huerta DO - 12/22/2018 2:37 PM EDT Addended by: GORGE HUERTA on: 12/22/2018 02:37 PM Modules accepted: Orders * Telephone Encounter - Christi Yang OSA - 12/21/2018 12:53 PM EDT Pt calling to schedule diagnostic mammogram. No US ordered with mammogram. Please contact pt to schedule once US is ordered. [phone] * Telephone Encounter - Shona Nog OSA - 12/17/2018 10:43 AM EDT LMOM [...] Fax Number, if applicable: Call Back Number: [phone] documented in this encounter Plan of Treatment Upcoming Encounters Date Type Specialty Care Team Description 03/14/2019 Office Visit Family Medicine Gorge Huerta DO [address] [place] [address] [phone] Scheduled Orders Name Type Priority Associated Diagnoses Orde r Schedule MAMMOGRAM DIAGNOSTIC RIGHT Medical Imaging Routine Abnormal mammogram Ordered: 12/15/2018 US BREAST LIMITED RIGHT Medical Imaging Routine Abnormal [...] Documents on File Type Date Recorded Patient Culinary Arts Instructor Expl anation Advanced Directive Advanced Directive Advanced Directive Advanced Directive Advanced Directive Advanced Directive 03/06/2014 11:39 AM Advanced Directive Advanced Directive
--- OUTSIDE RECORDS SUMMARY | 2023-04-06 06:22 | External Medical Summary | Summary of Care ---
Author Name Unknown Organization [place] [address] Care Team Providers Care Home Health Assistant Name Role Phone Gorge Huerta DO Primary Care Provider + [phone] Reason for Visit * Reason Comments Order Request Encounter Details Date Type Department Care Team Description 12/13/2018 Telephone [facility] [address], [place] [id number] Gorge Huerta DO [address] [place] [address] [phone] Order Request Allergies No Known Allergiesdocumented as [...] pt to schedule once US is ordered. [phone] * Telephone Encounter - Shona Ngo OSA [...] Fax Number, if applicable: Call Back Number: [phone] documented in this encounter Plan of Treatment Upcoming Encounters Date Type Specialty Care Team Description 03/14/2019 Office Visit Family Medicine Gorge Huerta DO [address] [place] [address] [phone] Scheduled Orders Name Type Priority Associated Diagnoses [...] on File Type Date Recorded Patient Manager Fleet Expl anation Advanced Directive Advanced Directive Advanced Directive Advanced Directive Advanced Directive Advanced Directive 03/06/2014 11:39 AM Advanced Directive Advanced Directive
--- OUTSIDE RECORDS SUMMARY | 2023-04-06 06:22 | External Medical Summary | Summary of Care ---
Author Name Unknown Organization [place] [address] Care Team Providers Care Carbon Electrodes Supervisor Name Role Phone Vanesa Solorzano DO Primary Care Provider + [phone] Reason for Visit * Reason Comments Order Request Encounter Details Date Type Department Care Team Description 12/13/2018 Telephone [facility] [address], [place] [address] Vanesa Solorzano DO [address] [place] [address] [phone] Order Request Allergies No Known Allergiesdocumented as [...] pt to schedule once US is ordered. [phone] * Telephone Encounter - Shona Ngo OSA [...] Fax Number, if applicable: Call Back Number: [phone] documented in this encounter Plan of Treatment Upcoming Encounters Date Type Specialty Care Team Description 03/14/2019 Office Visit Family Medicine Vanesa Solorzano, DO [address] [place] [address] [phone] Scheduled Orders Name Type Priority Associated Diagnoses [...] Documents on File Type Date Recorded Patient Vacuum Bottle Assembler Expl anation Advanced Directive Advanced Directive Advanced Directive Advanced Directive Advanced Directive Advanced Directive 03/06/2014 11:39 AM Advanced Directive Advanced Directive
--- OUTSIDE RECORDS SUMMARY | 2023-04-06 06:22 | External Medical Summary | Summary of Care ---
Author Name Unknown Organization [place] [address] Care Team Providers Care Foam Fabricator Name Role Phone Gorge Huerta DO Primary Care Provider + [phone] Reason for Visit * Reason Comments Order Request Encounter Details Date Type Department Care Team Description 12/13/2018 Telephone [facility] [address] [place], [place] [address] Gorge Huerta DO [address] [place] [address] [phone] Order Request Allergies No Known Allergiesdocumented as [...] pt to schedule once US is ordered. [phone] * Telephone Encounter - Shona Ngo OSA [...] Fax Number, if applicable: Call Back Number: [phone] documented in this encounter Plan of Treatment Upcoming Encounters Date Type Specialty Care Team Description 03/14/2019 Office Visit Family Medicine Gorge Huerta DO [address] [place] [address] [phone] Scheduled Orders Name Type Priority Associated Diagnoses [...] Documents on File Type Date Recorded Patient Traffic Rate Clerk Expl anation Advanced Directive Advanced Directive Advanced Directive Advanced Directive Advanced Directive Advanced Directive 03/06/2014 11:39 AM Advanced Directive Advanced Directive
--- OUTSIDE RECORDS SUMMARY | 2023-04-06 06:22 | External Medical Summary | Summary of Care ---
Author Name Unknown Organization [place] [address] Care Team Providers Care Meter/Relay Technician Name Role Phone Vanesa Solorzano DO Primary Care Provider + [phone] Reason for Visit * Reason Comments Re-Check 6 month recheck Encounter Details Date Type Department Care Team Description 03/14/2019 Office Visit [place] [address] [place] [address] Vanesa Solorzano DO [address] [place] [address] [phone] Arthritis of right ankle*; Obesity, morbid (more than 100 lbs over ideal weight or BMI > 40) (HCC); Dyslipidemia, goal LDL below 130 Allergies No Known Allergiesdocumented as of this encounter (statuses as of 03/14/2019) Medications Medication Sig Dispensed Refills Start Date End Date Status TYLENOL 325 MG PO TABS uses as needed 0 Active Meloxicam (MOBIC) 7.5 MG TabletIndications: Arthritis of right ankle Take 1 Tab by mouth daily. for pain. 90 Tab 1 03/14/2019 Active Meloxicam (MOBIC) 7.5 MG TabletIndications: Arthritis of right ankle Take 1 Tab by mouth daily. for pain. 30 Tab 11 08/06/2018 03/14/2019 Discontinued documented as of this encounter (statuses as of 03/14/2019) Active Problems Problem Noted Date Obesity, morbid (more than 100 lbs over ideal weight or BMI > 40) 01/08/2010 Overview: Per Obesity Protocol, #19 ICD-10 update of inactive term Obesity Dyslipidemia, goal LDL below 130 documented as of this encounter (statuses as of 03/14/2019) Resolved Problems Problem Noted Date Resolved Date Dyslipidemia, goal LDL below 100 09/15/2014 documented as of this encounter (statuses as of 03/14/2019) Immunizations Name Administration Dates Next Due Seasonal [...] Travel End documented as of this encounter Last Filed Vital Signs Vital Sign Reading Time Taken Comments Blood Pressure 130/70 03/14/2019 1:12 PM EDT Pulse 72 03/14/2019 1:12 PM EDT Temperature 36.5 C (97.7 F) 03/14/2019 1:12 PM ED T Respiratory Rate 20 03/14/2019 1:12 PM EDT Oxygen Saturation - - Inhaled Oxygen Concentration - - Weight 132.5 kg (292 lb 1.6 oz) 03/14/2019 1:12 PM EDT Height 162.6 cm (5' 4") 03/14/2019 1:12 PM EDT Body Mass Index 50.14 03/14/2019 1:12 PM EDT documented in this encounter Progress Notes * Vanesa Solorzano DO - 03/14/2019 1:41 PM EDT Subjective: Jacque Spivey is a 58 year old female. Chief Complaint Patient presents with Re-Check 6 month recheck HPI: 58 year old female here today for a follow up. Carries hx of dyslipidemia, obesity, and R ankle pain--chronic. She is taking mobic most of the days for her R ankle pain. Needs a refill. Trying to loose weight. Her BP is stable. Needs repeat imaging on the R breast PHM: Patient Active Problem List Diagnosis Code Obesity, morbid (more than 100 lbs over ideal weight or BMI > 40) ([facility]) E66.01 Obesity E66.9 Dyslipidemia, goal LDL below 130 E78.5 Current Outpatient Medications Medication Sig Dispense Refill Meloxicam (MOBIC) 7.5 MG Tablet Take 1 Tab by mouth daily. for pain. 90 Tab 1 TYLENOL 325 MG PO TABS uses as needed Review of patient's allergies indicates: No Known Allergies Objective: BP 130/70 | Pulse 72 | Temp (Src) 97.7 (Tympanic) | Resp 20 | Ht 5' 4" (1.626m) | Wt 292 lbs 1.6 oz(132.496kg) | BMI 50.14 kg/m | BSA 2.45 m Physical Exam: General: alert, healthy and no distress Heart: regular rate & rhythm, no murmurs and no gallops Lungs: chest symmetric with normal AP diameter, no chest deformities noted, no chest wall tenderness, lungs clear to auscultation Abdomen: abdomen soft, non-tender, normal bowel sounds and no masses or organomegaly Extremities: R lateral ankle some swelling there. Full ROM ASSESSMENT/PLAN: Arthritis of right ankle (Primary) - Meloxicam (MOBIC) 7.5 MG Tablet; Take 1 Tab by mouth daily. for pain. - XR FOOT 3 OR MORE VIEWS - XR ANKLE 3 OR MORE VIEWS Obesity, morbid (more than 100 lbs over ideal weight or BMI > 40) ([facility]) Encouraged exercise. Dyslipidemia, goal LDL below 130 Stable. Will hold on statin. Non smoker, an dher BP is stable. Vanesa Solorzano DO documented in this encounter Nursing Notes * Helene Pina LPN - 03/14/2019 1:11 PM EDT Chief Complaint Patient presents with Re-Check 6 month recheck documented in this encounter Plan of Treatment Upcoming Encounters Date Type Specialty Care Team Description 04/05/2019 Imaging Radiology Scheduled Orders Name Type Priority Associated Diagnoses Orde r Schedule XR FOOT 3 OR MORE VIEWS Medical Imaging Routine Arthritis of right ankle Ordered: 03/14/2019 XR ANKLE 3 OR MORE VIEWS Medical Imaging Routine Arthritis of right ankle Ordered: 03/14/2019 Health Maintenance Due Date Last Done Comments [...] encounter Visit Diagnoses Diagnosis Arthritis of right ankle- Primary Unspecified arthropathy, ankle and foot Obesity, morbid (more than 100 lbs over ideal weight or BMI > 40) (HCC) Morbid obesity Dyslipidemia, goal LDL below 130 Other and unspecified hyperlipidemia documented in this encounter Advance Directives Documents on File Type Date Recorded Patient Host And Hostess Expl anation Advanced Directive Advanced Directive Advanced Directive Advanced Directive Advanced Directive Advanced Directive 03/06/2014 11:39 AM Advanced Directive Advanced Directive
--- OUTSIDE RECORDS SUMMARY | 2023-04-06 06:22 | External Medical Summary | Summary of Care ---
Author Name Unknown Organization [place] [address] Care Team Providers Care Edge Sander Name Role Phone Vanesa Solorzano DO Primary Care Provider Reason for Visit * Reason Comments FYI mammogram Encounter Details Date Type Department Care Team Description 10/17/2019 Telephone Radiology [facility]st [facility] [address] [facility] [place] [address] Vanesa Solorzano DO [address] [place] [address] [id number] FYI (mammogram) Allergies No Known Allergiesdocumented as of this encounter (statuses as of 10/17/2019) Medications Medication Sig Dispensed Refills Start Date End Date Status TYLENOL 325 MG PO TABS uses as needed 0 Active Meloxicam (MOBIC) 7.5 MG TabletIndications:Arth ritis of right ankle Take 1 Tab by mouth daily. for pain. 90 Tab 1 09/05/2019 Active documented as of this encounter (statuses as of 10/17/2019) Active Problems Problem Noted Date Body mass index (BMI) of 45.0 to 49.9 in adult 04/04/2019 Overview: Per Obesity protocol Dyslipidemia, goal LDL below 130 documented as of this encounter (statuses as of 10/17/2019) Resolved Problems Problem Noted Date Resolved Date Obesity, morbid (more than 1 00 lbs over ideal weight or BMI > 40) 01/08/2010 04/08/2019 Overview: Per Obesity Protocol, #19 ICD-10 update of inactive term Dyslipidemia, goal LDL below 100 09/15/2014 Obesity 04/08/2019 Overview: Per Obesity protocol documented as of this encounter (statuses as of 10/17/2019) Immunizations Name Administration Dates Next Due Seasonal [...] encounter Miscellaneous Notes * Telephone Encounter - Maggie Dockery OSA - 10/17/2019 10:03 AM EDT Called LMOM, pt needs scheduled for a dx mammogram and a breast ultrasound documented in this encounter Plan of Treatment Upcoming Encounters Date Type Specialty Care Team Description 11/17/2019 Office Visit Family Medicine Vanesa Solorzano, DO [address] [place] [address] Health Maintenance Due Date Last Done Comments [...] Documents on File Type Date Recorded Patient Feller Machine Operator Expl anation Advanced Directive Advanced Directive Advanced Directive Advanced Directive Advanced Directive Advanced Directive 03/06/2014 11:39 AM Advanced Directive Advanced Directive
--- OUTSIDE RECORDS SUMMARY | 2023-04-06 06:22 | External Medical Summary ---
Author Name Unknown Address [facility] [address] [place] [phone] Phone Organization K01:[facility] [address] [place] [id number] Laboratory Report Ordering Provider Test Date Status MICHEL DE OLIVEIRA 05/31/2020 10:38:00 Final Observation Date Value Abnormality Reference (Units ) Status BUN 05/31/2020 15:12 16 6-20 (mg/dL) Final Creatinine 05/31/2020 15:12 0.9 0.5-1.0 (mg/ dL) Final E Glom Filt Rate 05/31/2020 15:12 >60.0 >60 Final Performing Location [address] [address]
--- OUTSIDE RECORDS SUMMARY | 2023-04-06 06:22 | External Medical Summary | Summary of Care ---
Author Name Unknown Organization [place] [address] Care Team Providers Care District Superintendent Name Role Phone Vanesa Solorzano DO Primary Care Provider [phone] Reason for Visit * Reason Comments FYI mammogram Encounter Details Date Type Department Care Team Description 09/28/2019 Telephone Radiology [facility] 1st [facility] [address] [facility] [place] [address] Vanesa Solorzano DO [address], [place] [phone] FYI (mammogram) Allergies No Known Allergiesdocumented as of this encounter (statuses as of 09/28/2019) Medications Medication Sig Dispensed Refills Start Date End Date Status TYLENOL 325 MG PO TABS uses as needed 0 Active Meloxicam (MOBIC) 7.5 MG TabletIndications:Arth ritis of right ankle Take 1 Tab by mouth daily. for pain. 90 Tab 1 09/05/2019 Active documented as of this encounter (statuses as of 09/28/2019) Active Problems Problem Noted Date Body mass index (BMI) of 45.0 to 49.9 in adult 04/04/2019 Overview: Per Obesity protocol Dyslipidemia, goal LDL below 130 documented as of this encounter (statuses as of 09/28/2019) Resolved Problems Problem Noted Date Resolved Date Obesity, morbid (more than 1 00 lbs over ideal weight or BMI > 40) 01/08/2010 04/08/2019 Overview: Per Obesity Protocol, #19 ICD-10 update of inactive term Dyslipidemia, goal LDL below 100 09/15/2014 Obesity 04/08/2019 Overview: Per Obesity protocol documented as of this encounter (statuses as of 09/28/2019) Immunizations Name Administration Dates Next Due Seasonal [...] Telephone Encounter - Maggie Dockery OSA - 09/28/2019 11:04 AM EST Called LMOM, pt needs scheduled for a dx mammogram and a breast ultrasound. documented in this encounter Plan of Treatment Upcoming Encounters Date Type Specialty Care Team Description 11/17/2019 Office Visit Family Medicine Vanesa Solorzano, DO [address] [place] [address] Health Maintenance Due Date Last [...] Documents on File Type Date Recorded Patient Rn Provider Relations Expl anation Advanced Directive Advanced Directive Advanced Directive Advanced Directive Advanced Directive Advanced Directive 03/06/2014 11:39 AM Advanced Directive Advanced Directive
--- OUTSIDE RECORDS SUMMARY | 2023-04-06 06:22 | External Medical Summary | Summary of Care ---
Author Name Unknown Organization [place] [address] Care Team Providers Care Drilling Plant Operator Name Role Phone Vanesa Solorzano DO Primary Care Provider + [phone] Reason for Visit * Reason Comments Fax Refill Encounter Details Date Type Department Care Team Description 08/30/2019 Telephone [facility] [address] [place] [address] Vanesa Solorzano DO [address] [place] [address] [phone] Fax Refill Allergies No Known Allergiesdocumented as of this encounter (statuses as of 08/30/2019) Medications Medication Sig Dispensed Refills Start Date End Date Status TYLENOL 325 MG PO TABS uses as needed 0 Active Meloxicam (MOBIC) 7.5 MG TabletIndications: Arthritis of right ankle Take 1 Tab by mouth daily. for pain. 90 Tab 1 08/30/2019 Active Meloxicam (MOBIC) 7.5 MG TabletIndications: Arthritis of right ankle Take 1 Tab by mouth daily. for pain. 90 Tab 1 03/14/2019 08/30/2019 Discontinued( Refill) documented as of this encounter (statuses as of 08/30/2019) Active Problems Problem Noted Date Body mass index (BMI) of 45.0 to 49.9 in adult 04/04/2019 Overview: Per Obesity protocol Dyslipidemia, goal LDL below 130 documented as of this encounter (statuses as of 08/30/2019) Resolved Problems Problem Noted Date Resolved Date Obesity, morbid (more than 1 00 lbs over ideal weight or BMI > 40) 01/08/2010 04/08/2019 Overview: Per Obesity Protocol, #19 ICD-10 update of inactive term Dyslipidemia, goal LDL below 100 09/15/2014 Obesity 04/08/2019 Overview: Per Obesity protocol documented as of this encounter (statuses as of 08/30/2019) Immunizations Name Administration Dates Next Due Seasonal [...] Telephone Encounter - Helene Pina LPN - 08/30/2019 8:21 AM EST Pending Prescriptions: Disp Refills Meloxicam (MOBIC) 7.5 MG Tablet 90 Tab 1 Sig: Take 1 Tab by mouth daily. for pain. Last Office Visit: 03/14/2019 Next Office Visit: No Future Appointments Last date the medication was ordered: 03/14/19 Patient Active Problem List Diagnosis Code Dyslipidemia, goal LDL below 130 E78.5 Body mass index (BMI) of 45.0 to 49.9 in adult ([facility]) Z68.42 Labs: CREATININE(mg/dL) Vito Dt/Tm Resulted Value Status 09/27/18 8:41A 09/27/18 0.7 FINAL POTASSIUM(mmol/L) Vito Dt/Tm Resulted Value Status 09/27/18 8:41A 09/27/18 4.5 FINAL TSH(uIU/mL) Vito Dt/Tm Resulted Value Status 09/15/14 9:44A 09/15/14 1.69 FINAL LDL (CALCULATED)(mg/dL) Vito Dt/Tm Resulted Value Status 09/27/18 8:41A 09/27/18 103 FINAL 09/26/16 9:16A 09/26/16 96 FINAL ALT(U/L) Vito Dt/Tm Resulted Value Status 09/26/16 9:16A 09/26/16 20 FINAL Hemoglobin AIC Results: No HEMOGLOBIN, A1C components found documented in this encounter Plan of Treatment [...] Documents on File Type Date Recorded Patient Marketing And Public Relations Manager Expl anation Advanced Directive Advanced Directive Advanced Directive Advanced Directive Advanced Directive Advanced Directive 03/06/2014 11:39 AM Advanced Directive Advanced Directive
--- OUTSIDE RECORDS SUMMARY | 2023-04-06 06:22 | External Medical Summary | Summary of Care ---
Author Name Unknown Organization [place] [address] Care Team Providers Care Tip Length Checker Name Role Phone Vanesa Solorzano DO Primary Care Provider + [phone] Encounter Details Date Type Department Care Team Description 09/27/2018 Imaging Radiology [facility] [address] [place] [address] Allergies No Known Allergiesdocumented as of this encounter (statuses as of 03/15/2019) Medications Medication Sig Dispensed Refills Start Date End Date Status TYLENOL 325 MG PO TABS uses as needed 0 Active documented as of this encounter (statuses as of 03/15/2019) Active Problems Problem Noted Date Obesity, morbid (more than 100 lbs over ideal weight or BMI > 40) 01/08/2010 Overview: Per Obesity Protocol, #19 ICD-10 update of inactive term Obesity Dyslipidemia, goal LDL below 130 documented as of this encounter (statuses as of 03/15/2019) Resolved Problems Problem Noted Date Resolved Date Dyslipidemia, goal LDL below 100 09/15/2014 documented as of this encounter (statuses as of 03/15/2019) Immunizations Name Administration Dates Next Due Seasonal [...] Specialty Care Team Description 04/05/2019 Imaging Radiology 04/05/2019 Imaging Radiology Health Maintenance Due Date Last Done Comments [...] Procedure Name Priority Date/Time Associated Diagnosis Comments US BREAST LIMITED RIGHT Routine 09/27/2018 8:32 AM EST Abnormal mammogram documented in this encounter Results * US BREAST LIMITED RIGHT (09/27/2018 8:32 AM EST) Specimen Narrative Performed At Result MAMMOGRAM DIAGNOSTIC THEA RIGHT US BREAST LIMITED RIGHT History Abnormal mammogram Family medical history includes breast cancer in grandmother (paternal). Hormone history includes control (used years ago). The patient has no documented history of relevant surgical procedures. The patient has no documented relevant medical history. Films Compared Compared to: 09/21/2018 MAMMOGRAM SCREENING THEA BILATERAL, 09/30/2016 MAMMOGRAM, SCREENING, BILAT, 09/26/2015 MAMMOGRAM, SCREENING, BILAT, 09/22/2013 MAMMOGRAM, SCREENING, BILAT, and 01/06/2012 MAMMOGRAM, SCREENING, BILAT Findings MAMMOGRAM DIAGNOSTIC THEA RIGHT The breast has scattered areas of fibroglandular density. Two focal asymmetries persist in the upper outer quadrant 10/11 o'clock anterior depth. The more superior and lateral focal asymmetry is thought to represent an intramammary lymph node, present as far as nomogram dating back to 2011. US BREAST LIMITED RIGHT The breast tissue has a heterogeneous background echotexture. A 5 x 3 x 3 mm probable cluster of cysts is noted at 10/11 o'clock 1 cm from nipple correlate to focal asymmetry seen on mammogram. Findings are suggestive of focal fibrocystic change. Short-term interval follow-up mammogram and ultrasound would be helpful. A 4 x 3 x 4 mm well defined intramammary lymph node is noted at 10/11 o'clock 1 cm from nipple correlate to the 2nd focal asymmetry in the upper outer anterior depth seen on mammogram. The aforementioned intramammary lymph node demonstrates hypoechoic rim/cortex and echogenic fatty hilum. Short-term interval follow-up mammogram and ultrasound would be helpful. Impression Probably benign findings as discussed above. Short-term interval follow-up right diagnostic mammogram and targeted ultrasound in 6 months would be helpful . BI-RADS Category: 3 - Probably Benign. Recommendation Mammogram and ultrasound in 6 months is recommended for the right breast. The above findings and recommendations were discussed and understood by the patient. Digital breast tomosynthesis was performed. This digital mammogram has been analyzed with the computer aided detection system. This notice contains the results of your recent mammogram, including information about breast density. If your mammogram shows that your breast tissue is dense, you should know that dense breast tissue is a common finding and is not abnormal. Statistics show many women could have dense or highly dense breasts. Dense breast tissue can make it harder to find cancer on a mammogram and may be associated with an increased risk of cancer. This information about the result of your mammogram is given to you to raise your awareness and to inform your conversations with your physician. Together, you can decide which screening options are right for you, based on your mammogram results, individual risk factors or physical examination. A report of your results was sent to your physician. Your mammographic breast density on today's study is described above. There are four categories of breast density on mammography. Fatty breasts and those with scattered fibroglandular tissue are not considered dense. Heterogeneously dense or extremely dense tissue is considered "dense". Please understand that assessment of breast density may vary from year to year. * MAMMOGRAM DIAGNOSTIC THEA RIGHT (09/27/2018 8:05 AM EST) Specimen Narrative Performed At Result MAMMOGRAM DIAGNOSTIC THEA RIGHT US BREAST LIMITED RIGHT History Abnormal mammogram Family medical history includes breast cancer in grandmother (paternal). Hormone history includes control (used years ago). The patient has no documented history of relevant surgical procedures. The patient has no documented relevant medical history. Films Compared Compared to: 09/21/2018 MAMMOGRAM SCREENING THEA BILATERAL, 09/30/2016 MAMMOGRAM, SCREENING, BILAT, 09/26/2015 MAMMOGRAM, SCREENING, BILAT, 09/22/2013 MAMMOGRAM, SCREENING, BILAT, and 01/06/2012 MAMMOGRAM, SCREENING, BILAT Findings MAMMOGRAM DIAGNOSTIC THEA RIGHT The breast has scattered areas of fibroglandular density. Two focal asymmetries persist in the upper outer quadrant 10/11 o'clock anterior depth. The more superior and lateral focal asymmetry is thought to represent an intramammary lymph node, present as far as nomogram dating back to 2011. US BREAST LIMITED RIGHT The breast tissue has a heterogeneous background echotexture. A 5 x 3 x 3 mm probable cluster of cysts is noted at 10/11 o'clock 1 cm from nipple correlate to focal asymmetry seen on mammogram. Findings are suggestive of focal fibrocystic change. Short-term interval follow-up mammogram and ultrasound would be helpful. A 4 x 3 x 4 mm well defined intramammary lymph node is noted at 10/11 o'clock 1 cm from nipple correlate to the 2nd focal asymmetry in the upper outer anterior depth seen on mammogram. The aforementioned intramammary lymph node demonstrates hypoechoic rim/cortex and echogenic fatty hilum. Short-term interval follow-up mammogram and ultrasound would be helpful. Impression Probably benign findings as discussed above. Short-term interval follow-up right diagnostic mammogram and targeted ultrasound in 6 months would be helpful . BI-RADS Category: 3 - Probably Benign. Recommendation Mammogram and ultrasound in 6 months is recommended for the right breast. The above findings and recommendations were discussed and understood by the patient. Digital breast tomosynthesis was performed. This digital mammogram has been analyzed with the computer aided detection system. This notice contains the results of your recent mammogram, including information about breast density. If your mammogram shows that your breast tissue is dense, you should know that dense breast tissue is a common finding and is not abnormal. Statistics show many women could have dense or highly dense breasts. Dense breast tissue can make it harder to find cancer on a mammogram and may be associated with an increased risk of cancer. This information about the result of your mammogram is given to you to raise your awareness and to inform your conversations with your physician. Together, you can decide which screening options are right for you, based on your mammogram results, individual risk factors or physical examination. A report of your results was sent to your physician. Your mammographic breast density on today's study is described above. There are four categories of breast density on mammography. Fatty breasts and those with scattered fibroglandular tissue are not considered dense. Heterogeneously dense or extremely dense tissue is considered "dense". Please understand that assessment of breast density may vary from year to year. documented in this encounter Advance Directives Documents on File Type Date Recorded Patient Technician Trainee Expl anation Advanced Directive Advanced Directive Advanced Directive Advanced Directive Advanced Directive Advanced Directive 03/06/2014 11:39 AM Advanced Directive Advanced Directive
--- OUTSIDE RECORDS SUMMARY | 2023-04-06 06:23 | External Medical Summary ---
Author Name Unknown Address [address] [id number] Phone [facility] [address] [facility] [address] Laboratory Report Ordering Provider Test Date Status JARED GARCIA MD 09/26/2016 09:16:00 Final Obs # Observation Date Value Abnormality Reference Status Performing Location 0 BUN 09/26/2016 14:51 17 6-20 Final [facility] [address] [facility] [id number] 1 Creatinine 09/26/2016 14:51 0.7 0.5-1.0 Final
--- OUTSIDE RECORDS SUMMARY | 2023-04-06 06:23 | External Medical Summary ---
Author Name Unknown Organization [facility] tem Support Name Relationship Address Phone Unavailable PROV Unknown Unavailable Laboratory Report Ordering Provider Test Date Status 02/27/2010 09:29-0400 F Obs # Observation Date Value ABNL Reference Status Pe rforming Location 1 [facility] 02/27/2010 17:33-0400 2.30 0.27-4.2 uIU/mL Final
--- OUTSIDE RECORDS SUMMARY | 2023-04-06 06:23 | External Medical Summary ---
Author Name Unknown Organization [facility] tem Support Name Relationship Address Phone Unavailable PROV Unknown Unavailable Laboratory Report Ordering Provider Test Date Status 02/27/2010 09:290400 F Obs # Observation Date Value ABNL Reference Status Pe rforming Location 1 BUN [facility] 02/27/2010 16:59-0400 13 6-20 mg/dL Final [address] [facility] 02/27/2010 16:59-0400 0.6 L 0.7-1.5 mg/dL Final 3 Sodium [facility] 02/27/2010 16:59-0400 140 135-146 mmol/L Final 4 Potassium [facility] 02/27/2010 16:59-0400 3.9 3.5-5.1 mmol/L Final 5 Chloride [facility] 02/27/2010 16:59-0400 101 98-111 mmol/L Final [address] [facility] 02/27/2010 16:59-0400 27 22-32 mmol/L Final [address] [facility] 02/27/2010 16:59-0400 86 70-120 mg/dL Final [address] [facility] 02/27/2010 16:59-0400 4.2 3.8-5.0 g/dL Final 9 AST [facility] 02/27/2010 16:59-0400 22 10-35 U/L Final 10 ALP [facility] 02/27/2010 16:59-0400 92 25-125 U/L Final [address] [facility] 02/27/2010 16:59-0400 0.3 0.3-1.3 mg/dL Final [address] [facility] 02/27/2010 16:59-0400 9.6 8.3-10.5 mg/dL Final 13 Prot [facility] 02/27/2010 16:59-0400 6.9 6.0-8.3 g/dL Final 14 ALT [facility] 02/27/2010 16:59-0400 17 10-35 U/L Final 15 Anion Gap [facility] 02/27/2010 16:59-0400 12 7-15 mEq/L Final 16 Pred GFR SerPl MDRD-vRate 02/27/2010 16:59-0400 >60.0 >60 mL/min Final
--- OUTSIDE RECORDS SUMMARY | 2023-04-06 06:23 | External Medical Summary ---
Author Name Unknown Organization K01:[facility], [address] [address] Laboratory Report Ordering Provider Test Date Status RADHA COLEMAN MD 09/15/2014 09:44:00-0500 Final Obs # Observation Date Value ABNL Reference Status Pe rforming Location 1 LDL, (direct) 09/15/2014 15:31-0500 107 0-129 mg/dL Final LDL CHOLESTEROL REFERENCE RANGES(mg/dL) <100 OPTIMAL GOAL FOR HIGH RISK PATIENTS 100-129 NEAR OR ABOVE NORMAL 130-159 BORDERLINE HIGH 160-189 HIGH >189 VERY HIGH
--- OUTSIDE RECORDS SUMMARY | 2023-04-06 06:23 | External Medical Summary ---
Author Name Unknown Organization K07:[facility], [address] [facility] [place] [address] Laboratory Report Ordering Provider Test Date Status RADHA COELMAN MD 09/21/2013 08:09:00-0500 Final Obs # Observation Date Value ABNL Reference Status Pe rforming Location 1 BUN 09/21/2013 10:13-0500 11 6-20 mg/dL Final 2 Creatinine 09/21/2013 10:13-0500 0.7 0.5-1.1 mg/dL Final GFR should be used to assess renal function. Plasma/Serum creatinine may not be able to properly reflect renal function in some cases.
--- OUTSIDE RECORDS SUMMARY | 2023-04-06 06:23 | External Medical Summary ---
Author Name Unknown Organization K01[facility], [address] [address] Laboratory Report Ordering Provider Test Date Status RADHA COLEMAN MD 09/15/2014 09:44:00-0500 Final Obs # Observation Date Value ABNL Reference Status Pe rforming Location 1 WBC 09/15/2014 15:-0500 10.54 4.00-10.80 K/uL Final 2 RBC 09/15/2014 15:-0500 4.74 3.85-5.15 M/uL Final 3 HGB 09/15/2014 15:09-0500 12.3 12.0-15.3 g/dL Final 4 HCT 09/15/2014 15:09-0500 39.6 36.0-45.2 % Final 5 MCV 09/15/2014 15:09-0500 83.5 81.5-97.5 fL Final 6 MCH 09/15/2014 15:09-0500 25.9 L 27.0-34.0 pg Final 7 MCHC 09/15/2014 15:09-0500 31.1 L 32.0-36.0 g/dL Final 8 RDW 09/15/2014 15:09-0500 14.4 11.5-15.5 % Final 9 PLT 09/15/2014 15:09-0500 395 140-400 K/uL Final 10 MPV 09/15/2014 15:09-0500 10.1 6.6-11.1 fL Final 11 Segs 09/15/2014 15:09-0500 71 40-75 % Final 12 Lymphocytes 09/15/2014 15:09-0500 20 18-42 % Final 13 Monos 09/15/2014 15:09-0500 7 1-11 % Final 14 Eosinophils 09/15/2014 15:09-0500 2 0-6 % Final 15 Basos 09/15/2014 15:09-0500 0 0-2 % Final 16 Segmented Neutrophils, Abs 09/15/2014 15:09-0500 7.52 1.8-7.7 K/uL Final 17 Lymphs, Abs 09/15/2014 15:09-0500 2.09 1.0-4.8 K/uL Final 18 Monos, Abs 09/15/2014 15:09-0500 0.71 0.0-1.1 K/uL Final 19 Eos, Abs 09/15/2014 15:09-0500 0.17 0.0-0.7 K/uL Final 20 Basos, Abs 09/15/2014 15:09-0500 0.03 0.0-0.2 K/uL Final
--- OUTSIDE RECORDS SUMMARY | 2023-04-06 06:23 | External Medical Summary ---
Author Name Unknown Address Unknown Organization : Laboratory Report Ordering Provider Test Date Status JARED GARCIA MD 09/26/2016 09:16:00 Final Obs # Observation Date Value Abnormality Reference Status Performing Location 0 Fasting status - Reported 09/26/2016 09:17 12 Final 1 Triglyceride 09/26/2016 14:51 94 <200 Final
--- OUTSIDE RECORDS SUMMARY | 2023-04-06 06:23 | External Medical Summary | Summary of Care ---
Author Name Unknown Organization [place] [address] Care Team Providers Care Game Farm Supervisor Name Role Phone Vanesa Solorzano DO Primary Care Provider + [phone] Reason for Visit * Reason Comments Physical-Exam Medication Administration Flu and/or Pne umo Inj Encounter Details Date Type Department Care Team Description 08/06/2018 Office Visit [place] [address] [place] [address] Vanesa Solorzano DO [address] [place] [address] [id number] Arthritis of right ankle*; Need for prophylactic vaccination and inoculation against influenza; Encounter for screening mammogram for breast cancer Allergies No Known Allergiesas of this encounter Medications Medication Sig Dispensed Refills Start Date End Date Status TYLENOL 325 MG PO TABS uses as needed 0 Active Meloxicam (MOBIC) 7.5 MG TabletIndications :Arthritis of right ankle Take 1 Tab by mouth daily. for pain. 30 Tab 11 08/06/2018 Active hydrocortisone 1 % creamIndications: Bug bite Apply topically to affected area 3 times a day as needed for Itching. For rash. 15 g 1 02/07/2016 08/06/2018 Discontinued as of this encounter Active Problems Problem Noted Date Obesity, morbid (more than 100 lbs over ideal weight or BMI > 40) 01/08/2010 Overview: Per Obesity Protocol, #19 ICD-10 update of inactive term Obesity Dyslipidemia, goal LDL below 130 as of this encounter Resolved Problems Problem Noted Date Resolved Date Dyslipidemia, goal LDL below 100 09/15/2014 as of this encounter Immunizations Name Dates Previously Given Next Due Seasonal Influenza, Quadriva lent, No Preserve, 6 Mons & Above, IM 08/06/2018 Seasonal Influenza, Trivalen t, with Preserve, 3yr & Above, Split 05/04/2013 TD - Tetanus/Diptheria (ADULT) 09/12/2003 TDAP (age 10 and older)(Boostrix) 05/04/2013 as of this encounter Social History Tobacco Use Types Packs/Day Years Used Date Never Smoker Smokeless Tobacco: Never Used Alcohol Use Drinks/Week oz/Week Comments Yes Occasionally Sex Assigned at Date Recorded Not on file Job Start Date Occupation Industry Not on file Not on file Not on file Travel History Travel Start Travel End as of this encounter Last Filed Vital Signs Vital Sign Reading Time Taken Blood Pressure 138/72 08/06/2018 12:00 PM EST Pulse 68 08/06/2018 12:00 PM EST Temperature 36.9 C (98.5 F) 08/06/2018 1 2:00 PM EST Respiratory Rate 16 08/06/2018 12:0 0 PM EST Oxygen Saturation - - Inhaled Oxygen Concentration - - Weight 129 kg (284 lb 8 oz) 08/06/2018 12:00 PM EST Height 162.6 cm (5' 4") 08/06/2018 12:0 0 PM EST Body Mass Index 48.83 08/06/2018 12:00 PM EST in this encounter Patient Instructions * Patient Instructions* Helene Pina LPN - 08/06/2018 12:00 PM EST ~~PATIENT INSTRUCTIONS FOR FLU SHOT~~ Possible [...] OF EYES, FACE OR INSIDE OF NOSE. in this encounter Progress Notes * Vanesa Solorzano DO - 08/06/2018 12:19 PM EST Subjective: Jacque Spivey is a 57 year old female. Chief Complaint Patient presents with Physical-Exam Medication Administration Flu and/or Pneumo Inj HPI: 57 year old female here today for a new pt visit. She was seeing Dr Mckeon in [place]. But moved here in [place] last August.with her mother and her . She carries hx of obesity, and dyslipidemia. Would like to return for lipid panel. Had Colonoscopy, her first one she had to have repeated There was a stricture. She ultimately saw Dr Whittington, and had Colonoscopy CT, and showed diverticular disease. She denies any LLQ pain. No blood in her stool. She needs mammogram. Intermittently ankle swelling. And wears teds. This helps. Suffers from ankle joint pain. Hx of fracture in the past. And takes up to 3 motrin per day. Under direction of her previous PCP. She offers no other complaints. PHM: Patient Active Problem List Diagnosis Code Obesity, morbid (more than 100 lbs over ideal weight or BMI > 40) ([facility]) E66.01 Obesity E66.9 Dyslipidemia, goal LDL below 130 E78.5 Current Outpatient Medications Medication Sig Dispense Refill TYLENOL 325 MG PO TABS uses as needed Review of patient's allergies indicates: No Known Allergies Objective: BP 138/72 | Pulse 68 | Temp (Src) 98.5 (Tympanic) | Resp 16 | Ht 5' 4" (1.626m) | Wt 284 lbs 8 oz (129.048kg) | BMI 48.83 kg/m | BSA 2.41 m Physical Exam: General: alert, healthy and no distress Oropharynx: no exudate, no erythema, lips, buccal mucosa, and tongue normal and mucous membranes are moist Heart: regular rate & rhythm, no murmurs and no gallops Lungs: chest symmetric with normal AP diameter, no chest deformities noted, no chest wall tenderness, lungs clear to auscultation Abdomen: abdomen soft, non-tender, normal bowel sounds and no masses or organomegaly Extremities: no joint deformities, effusion, or inflammation, no edema ASSESSMENT/PLAN: Z23 Need for prophylactic vaccination and inoculation against influenza (primary encounter diagnosis) Plan: Influenza vacc, quad, pf, 6 months & up, 0.5 ml, im M19.071 Arthritis of right ankle Plan: Meloxicam 7.5 mg po tabs Sig:Take 1 tab by mouth daily. for pain. Z12.31 Encounter for screening mammogram for breast cancer Plan: Mammogram screening bilateral Follow up: Return in about 6 months (around 02/03/2019). Vanesa Solorzano, * Helene Pina LPN - 08/06/2018 12:00 PM EST PRE - ADMINISTRATION DOCUMENTATION Are you allergic to latex? No Are you experiencing any cold symptoms or fever? No Have you had Guillain-[place] Syndrome (an illness that causes paralysis)? No Have you had the flu shot in the past? YES Have you ever had a reaction to the flu shot? No Helene Pina LPN, 08/06/2018 12:00 PM Immunization Administration Documentation Time Out Procedure Performed: Yes Patient Identified (Ask Name/Date of ): Yes Does the patient have a fever greater than 101 degrees today? No Patient allergic to latex? No VFC Stock: No Immunization(s) verified: Yes, Immunization Name: Flu, VIS Sheet(s) given: Yes Verified Side and Site: Yes Verified Shot(s) with Parent(s)/Patient: Yes in this encounter Nursing Notes * Helene Pina LPN - 08/06/2018 11:58 AM EST Chief Complaint Patient presents with Physical-Exam in this encounter Plan of Treatment Upcoming Encounters Date Type Specialty Care Team Description 09/21/2018 Imaging Radiology Scheduled Tests Name Priority Associated Diagnoses Order S chedule MAMMOGRAM SCREENING BILATERAL Routine Encounter for screening mammogram for breast cancer Ordered: 08/06/2018 Health Maintenance Due Date Last Done Comments *DEPRESSION SCREENINGALBIN FOR PTS 18 AND OVER 02/09/2017 BREAST CANCER SCREENING DISCUSSION YEARLY AGES 40-75 09/30/2017 09/30/2016, 09/26/2015, 09/21/2013, Additional history exists Influenza Vaccine (FLU shot) (#1) 2018 013 DIABETES SCREEN EVERY 3 YRS- AGE 45 AND ABOVE 09/27/2019 09/26/2016, 09/19/2015, 09/15/2014, Additional history exists PAP SMEAR-EVERY 3 YRS,AGES 21-65 09/27/2019 09/26/2016, 09/09/2013, 12/16/2011, Additional history exists LIPID SCREEN EVERY 5 YRS-WOM EN AGE 45-75 09/26/2021 09/26/2016, 09/19/2015, 09/15/2014, Additional history exists DTaP,Tdap,and Td Vaccines (2 - Td) 05/04/2023 05/04/2013, 09/12/2003 as of this encounter Implants Not on fileas of this encounter Visit Diagnoses Diagnosis Arthritis of right ankle- Primary Unspecified arthropathy, ankle and foot Need for prophylactic vaccination and inoculation against influenza Encounter for screening mammogram for breast cancer in this encounter Advance Directives Patient has advance care planning documents on file. For more information, please contact: ROBERTO [place] [phone]
--- OUTSIDE RECORDS SUMMARY | 2023-04-06 06:23 | External Medical Summary ---
Author Name Unknown Address [address] [id number] Phone Organization K01:[facility] [address] [id number] Laboratory Report Ordering Provider Test Date Status JARED GARCIA MD [id number] Final Obs # Observation Date Value Abnormality Reference Status Performing Location 0 BUN [id number] 14 6-20 Final [facility] [address] [facility] [address] 1 Creatinine [id number] 0.8 0.5-1.0 [facility] [address] [facility] [address]
--- OUTSIDE RECORDS SUMMARY | 2023-04-06 06:23 | External Medical Summary ---
Author Name Unknown Address Unknown Organization : Laboratory Report Ordering Provider Test Date Status JARED GARCIA MD [id number] Final Obs # Observation Date Value Abnormality Reference Status Performing Location 0 hours fasting [id number] 13 Final 1 Triglyceride [id number] 88 <200 Final
--- OUTSIDE RECORDS SUMMARY | 2023-04-06 06:23 | External Medical Summary ---
Author Name Unknown Organization K07:[facility], [address] [place] [address] Laboratory Report Ordering Provider Test Date Status RADHA COLEMAN MD 09/21/2013 08:09:00-0500 Final Obs # Observation Date Value ABNL Reference Status Pe rforming Location 1 hours fasting 09/21/2013 08:10-0500 12 hours Final 2 Triglyceride 09/21/2013 16:29-0500 103 <200 mg/dL Final TRIGLYCERIDE REFERENCE RANGES (mg/dL) <150 NORMAL 150-199 BORDERLINE HIGH 200-499 HIGH >499 VERY HIGH TOTAL CHOLESTEROL REFERENCE RANGES(mg/dL) <200 DESIRABLE 200-239 BORDERLINE HIGH >239 HIGH HDL CHOLESTEROL REFERENCE RANGES(mg/dL) <40 LOW(UNDESIRABLE) >59 HIGH(DESIRABLE) LDL CHOLESTEROL REFERENCE RANGES(mg/dL) <100 OPTIMAL GOAL FOR HIGH RISK PATIENTS 100-129 NEAR OR ABOVE NORMAL 130-159 BORDERLINE HIGH 160-189 HIGH >189 VERY HIGH
--- OUTSIDE RECORDS SUMMARY | 2023-04-06 06:23 | External Medical Summary ---
Author Name Unknown Organization [facility] tem Support Name Relationship Address Phone Unavailable PROV Unknown Unavailable Laboratory Report Ordering Provider Test Date Status 02/27/2010 09:290400 F Obs # Observation Date Value ABNL Reference Status Pe rforming Location 1 WBC # Bld 02/27/2010 17:14-0400 10.32 4.00-10.80 K/uL Final 2 RBC # Bld 02/27/2010 17:14-0400 4.40 3.85-5.15 M/uL Final 3 Hgb Bld-mCnc 02/27/2010 17:14-0400 11.8 L 12.0-14.5 g/dL Final 4 Hct Fr Bld 02/27/2010 17:14-0400 35.9 L 36.0-44.5 % Final 5 MCV RBC Qn 02/27/2010 17:14-0400 81.4 L 81.5-97.5 fL Final 6 MCH RBC Qn 02/27/2010 17:14-0400 26.8 L 27.0-34.0 pg Final 7 MCHC RBC-mCnc 02/27/2010 17:14-0400 32.9 32.0-36.0 g/dL Final 8 RDW RBC Qn 02/27/2010 17:14-0400 14.9 11.5-15.5 % Final 9 Platelet # Bld 02/27/2010 17:14-0400 355 150-400 K/uL Final 10 PMV Bld Qn 02/27/2010 17:14-0400 8.1 6.6-11.1 fL Final 11 Neuts Seg Fr Bld 02/27/2010 17:14-0400 71 40-75 % Final 12 Lymphocytes Fr Bld 02/27/2010 17:14-0400 21 18-42 % Final 13 Monocytes Fr Bld 02/27/2010 17:14-0400 6 1-11 % Final 14 Eosinophil Fr Bld 02/27/2010 17:14-0400 2 0-6 % Final 15 Basophils Fr Bld 02/27/2010 17:14-0400 0 0-2 % Final 16 Neuts Seg # d 02/27/2010 17:14-0400 7.27 1.8-7.7 K/uL Final 17 Lymphocytes # d 02/27/2010 17:14-0400 2.20 1.0-4.8 K/uL Final 18 Monocytes # d 02/27/2010 17:14-0400 0.62 0.0-1.1 K/uL Final 19 ABS. EOS 02/27/2010 17:140400 0.18 0.0-0.7 K/uL Final 20 Basophils # d 02/27/2010 17:14-0400 0.04 0.0-0.2 K/uL Final 21 RBC d 02/27/2010 17:14-0400 Final NORMAL
--- OUTSIDE RECORDS SUMMARY | 2023-04-06 06:23 | External Medical Summary | Summary of Care ---
Author Name Unknown Organization [place] [address] Phone Care Team Providers Care Casino Change Attendant Name Role Phone Angie Mckeon MD Primary Care Provider [phone] Encounter Details Date Type Department Care Team Description 02/22/2004 Abstract [facility], [place] [address] [facility] [place] [id number] Angie Mckeon MD [address] [facility] [place] [place] [id number] Allergies No Known Allergiesas of this encounter Medications No known medicationsas of this encounter Active Problems Problem Noted Date Obesity, morbid (more than 100 lbs over ideal weight or BMI > 40) ([facility]) 01/08/2010 Overview: Per Obesity Protocol, #19 ICD-10 update of inactive term Obesity Dyslipidemia, goal LDL below 130 as of this encounter Resolved Problems Problem Noted Date Resolved Date Dyslipidemia, goal LDL below 100 09/15/2014 as of this encounter Immunizations Name Dates Previously Given Next Due TD - Tetanus/Diptheria (ADULT) 09/12/2003 as of this encounter Social History Tobacco Use Types Packs/Day Years Used Date Never Smoker Sex Assigned at Date Recorded Not on file as of this encounter Plan of Treatment [...]
--- OUTSIDE RECORDS SUMMARY | 2023-04-06 06:23 | External Medical Summary ---
Author Name Unknown Organization K01:[facility], [address] [address] Laboratory Report Ordering Provider Test Date Status RADHA COLEMAN MD 09/15/2014 09:44:00-0500 Final Obs # Observation Date Value ABNL Reference Status Pe rforming Location 1 BUN 09/15/2014 15:31-0500 14 6-20 mg/dL Final 2 Creatinine 09/15/2014 15:31-0500 0.7 0.5-1.1 mg/dL Final GFR should be used to assess renal function. Plasma/Serum creatinine may not be able to properly reflect renal function in some cases. If patient is , multiply estimated GFR by 1.159.
--- OUTSIDE RECORDS SUMMARY | 2023-04-06 06:23 | External Medical Summary ---
Author Name Unknown Organization K01:[facility], [address] [address] Laboratory Report Ordering Provider Test Date Status RADHA COLEMAN MD 09/15/2014 09:44:00-0500 Final Obs # Observation Date Value ABNL Reference Status Pe rforming Location 1 TSH 5 15:39-050 0 1.69 0.27-4.2 uIU/mL Final 2 FREE T4 REFLEXIVE 5 15:39-050 0 NOT APPLICABLE 0.7-1.7 ng/dL Final
--- OUTSIDE RECORDS SUMMARY | 2023-04-06 06:23 | External Medical Summary ---
Author Name Unknown Organization [facility] [facility] tem Support Name Relationship Address Phone Unavailable PROV Unknown Unavailable Laboratory Report Ordering Provider Test Date Status 02/27/2010 09:29-0400 F Obs # Observation Date Value ABNL Reference Status Pe rforming Location 1 HOURS FASTING 02/27/2010 15:51-0400 12 hours Final 2 Trigl SerPl-mCnc 02/27/2010 16:59-0400 117 45-230 mg/dL Final 3 Cholest SerPl-mCnc 02/27/2010 16:59-0400 184 <200 mg/dL Final 4 HDLc SerPl-mCnc 02/27/2010 16:59-0400 56 40-59 mg/dL Final 5 Cholest/HDLc SerPl-mRto 02/27/2010 16:59-0400 3.3 Final 6 LDLc SerPl Calc-mCnc 02/27/2010 16:59-0400 105 H 0-100 mg/dL Final
--- OUTSIDE RECORDS SUMMARY | 2023-04-06 23:48 | External Medical Summary | Summary of Care ---
Author Name Unknown Organization [facility] Address [address] [place] [address] Phone [phone] Care Team Providers Care Salad Chef Name Role Phone Vanesa Solorzano Primary Care Provider [phone] Reason for Visit * Reason Comments Follow Up Encounter Details Date Type Department Care Team Description 03/25/2023 Office Visit Palliative Medicine [facility] [address] [place] [address] Mercedes Aranda MD [address] [place] [address] Palliative care encounter*; Anxiety disorder due to medical condition; Cancer related pain; Malignant neoplasm of head of pancreas (HCC); Acute CVA (cerebrovascular accident) (HCC) Allergies No known active allergiesdocumented as of this encounter (statuses as of 03/25/2023) Medications Medication Sig Dispensed Refills Start Date End Date Status Nitroglycerin 0.3 MG Sublingual Tablet Sublingual (NITROSTAT)Indic ations:Chest pain, unspecified type Place 1 Tab under the tongue as needed for Pain, Chest. May repeat 3 times. If chest pain continues, call 911. 33 Tab 11 0 Active Pantoprazole Sodium 40 MG Oral Tablet Delayed Release (Protonix) Take 1 Tablet by mouth in the morning. 0 Active Apixaban 5 MG Oral Tablet (Eliquis)Indicat ions:Acute CVA (cerebrovascular accident) (HCC),Paroxysmal atrial flutter (HCC) Take 1 Tablet by mouth in the morning and 1 Tablet before bedtime. 60 Tablet 11 3 Active Prochlorperazine Maleate 10 MG Oral Tablet (Compazine)Indic ations: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 30 Tablet 0 3 Active Ondansetron HCl 8 MG Oral TabletIndication s:Malignant neoplasm of head of pancreas (HCC) Take 1 Tablet by mouth every 8 hours as needed for Nausea. 30 Tablet 0 3 Active Lidocaine-Priloc malena 2.5-2.5 % External Cream (Emla)Indication s:Malignant neoplasm of head of pancreas (HCC) APPLY TO SKIN OVER MEDIPORT & COVER 1HR PRIOR TO ACCESSING. 30 g 1 3 Active Loratadine 10 MG Oral Tablet (Claritin)Indica tions:Malignant neoplasm of head of pancreas (HCC) Take 1 tablets for 5 days each chemo cycle, starting the day BEFORE udenyca injection 60 Tablet 0 3 Active oxyCODONE-Acetam inophen 5-325 MG Oral Tablet (Percocet)Indica tions:Malignant neoplasm of head of pancreas (HCC) Take 1 Tablet by mouth every 4 hours as needed for Pain, Severe. 15 Tablet 0 3 Active Additional Information Patient not taking.Reported on 03/13/2023 Metoprolol Succinate ER 25 MG Oral Tablet Extended Release 24 Hour (toPROL XL) Take 1 Tablet by mouth in the morning and 1 Tablet before bedtime. 60 Tablet 1 3 Active Megestrol Acetate 20 MG Oral Tablet (Megace) Take 1 Tablet by mouth in the morning and 1 Tablet before bedtime. 60 Tablet 1 3 Active Acetaminophen 500 MG Oral Tablet (Tylenol Extra Strength)Indicat ions:Malignant neoplasm of head of pancreas (HCC) Take 2 Tablets by mouth in the morning and 2 Tablets at noon and 2 Tablets in the evening. 120 Tablet 0 3 Active Simethicone 125 MG Oral CapsuleIndicatio ns:Malignant neoplasm of head of pancreas (HCC) Take 1 Capsule by mouth 3 times a day as needed (Gas). 90 Capsule 3 3 Active Sennosides-Docus ate Sodium 8.6-50 MG Oral Tablet (SB Docusate Sodium/Senna) Take 1 Tablet by mouth in the morning. 30 Tablet 0 3 Active Mirtazapine 30 MG Oral Tablet (Remeron)Indicat ions:Anxiety disorder due to medical condition Take 1 Tablet by mouth at bedtime. 30 Tablet 0 3 Active Mirtazapine 15 MG Oral Tablet (Remeron)Indicat ions:Anxiety disorder due to medical condition Take 1 Tablet by mouth at bedtime. 30 Tablet 0 3 03/25/20 23 Discontinued(Ref ill) busPIRone HCl 10 MG Oral Tablet (Buspar)Indicati ons:Anxiety disorder due to medical condition Take 1 Tablet by mouth 3 times a day as needed (Anxiety). 90 Tablet 0 3 03/25/20 23 Discontinued documented as of this encounter (statuses [...] Taken Comments Blood Pressure - - Pulse 75 03/25/2023 1:49 PM EDT Temperature - - Respiratory Rate - - Oxygen Saturation 96% 03/25/2023 1:49 PM EDT Inhaled Oxygen Concentration - - Weight - - Height - - Body Mass Index - - documented in this encounter Patient Instructions * Patient Instructions* Mercedes Aranda MD - 03/25/2023 1:45 PM EDT Our Palliative Medicine Clinic is [...] needed. You can contact our office at [phone], which is our clinic in [place], or you can message us on [employer]. If you have an emergency outside of these hours, we recommend calling your primary care clinic, Oncology office, or going to the ER if you have a medical emergency. Increase the mirtazapine from 15 to 30mg BOOK the therapy referral: Reply to this message or call [phone] between 7 a.m. and 5 p.m. any weekday and we'll get you set up. Think if you want to switch to home health instead documented in this encounter Progress Notes * Mercedes Aranda MD - 03/25/2023 2:00 PM EDT Palliative Medicine Outpatient Progress Note [facility] Palliative Medicine Outreach [address] [place] [address] Name: Jacque Spivey Date: 03/25/2023 HPI: Jacque Spivey is a 62 year old adult with pancreatic CA, w/recent CVA and endometrial CA seenin follow-up for goals of care and symptom management. She is still very emotional over everything Biggest issue is gas and pain from gas. Stopped Gas-X as it "worsened her calcium level" Having a hard time swallowing pills, so not taking Buspar 10mg TID Poor appetite, only had an egg and 1/4 piece of toast Used to enjoy everything Going to [facility] - was not able to stand up at therapy, Palliative ROS: Pain: Having pain from gas Nausea/Vomiting Taking nausea pills but then her stomach hurts Constipation: Taking Senna, it helped initially Confusion: reports she is very confused since the stroke when is then frustrating for her Sleep: ok Activities: unable to do many of her ADLs Appetite: poor Mood: tearful Other: ROS: See HPI. All others negative. Past Medical History: Diagnosis Date Acute CVA (cerebrovascular accident) ([facility]) 01/26/2023 Acute left hemiparesis ([facility]) 01/26/2023 Anxiety 01/26/2023 Dyslipidemia, goal LDL below 130 Gestational hypertension Obesity, morbid, BMI 40.0-49.9 ([facility]) 04/04/2019 Per Obesity protocol Other screening mammogram 03/10/2005 wnl per [facility] at Paroxysmal atrial flutter ([facility]) 01/26/2023 SVT (supraventricular tachycardia) ([facility]) 01/26/2023 SHx: No change FHx: No change Decision-making Capacity: Does Patient have Decisional Capacity? y Does Patient have a Healthcare Agent? y Advanced Care Planning (see ACP Tab): AD in EMR: no POLST in EMR: no Examination: Pulse 75 | LMP (LMP Unknown) | SpO2 96% (refused further vitals) Constitutional: no acute distress, chronically ill HENT: normocephalic, atraumatic. Eyes: anicteric, sclera and conjunctiva normal. Neck: no stridor Chest: normal respiratory effort Abdominal: nondistended Extremities: no edema Data Review: External notes reviewed: hem onc notes reviewed Lab / Imaging Results: no History obtained from: pt and mother Discussion with other team members: d/w hem onc ASSESSMENT/PLAN: Jacque Spivey is a 62 year old adult seen in follow-up for goals of care and pain and symptom management. Unresectable pancreatic CA - On tx, so far tolerating it well but has poor understanding of things w/her recent CVA Mood - mostly depression/ anxiety - Increase mirtazapine to 30mg qHS - Therapy referral previously placed, advised to call Gas - Has GI referral in a month Hx of CVA - Is going to [facility] - I think she would benefit from home health but she wants to keep going to [facility] - Possibly farmworker cranberry referral? Follow up in 6 weeks via video I spent a total of 42 minutes on the date of service in preparation, delivery, and documentation ofthe care provided to Jacque Spivey. Mercedes Aranda MD Palliative Medicine Physician [facility] Office: [phone] 03/25/2023 * Caren Becker LPN - 03/25/2023 1:48 PM EDT Return Palliative Visit Pain: 3/10 in stomach Just taking tylenol-two 500mg BID Not taking the percocet Had last BM yesterday. Had diarrhea and it was very dark. On and off diarrhea documented in this encounter Plan of Treatment Upcoming Encounters Date Type Specialty Care Team Description 03/26/2023 Immunization/Injection Hematology Oncolog y Nurse, Med [address] [place] [address] 03/27/2023 Immunization/Injection Hematology Oncolog y Nurse, Med [address] [place] [place] [address] 04/06/2023 Laboratory Laboratory [facility], Lab Scenery [address] [place] [address] 04/07/2023 Hem/Onc Treatment Hematology [facility], Chair 1 Hem Onc Scenery [address] [place] [address] 04/17/2023 Imaging Radiology 04/29/2023 Office Visit Family Medicine Vanesa Solorzano, DO [address] [place] [address] 04/29/2023 Office Visit Gastroenterology Amberly Turner CRNP [address] [place] [address] 05/05/2023 Telemedicine Palliative Medicine Mercedes Aranda MD [address] [place] [address] [place] [address] 05/26/2023 Office Visit Gynecology Oncology Brayan Olguin PA-C [address] [place] [address] 06/16/2023 Office Visit Neurology Greer Davis PA-C [address] [facility] [place], [place] [id number] Health Maintenance Due Date Last Done Comments [...] this encounter Medical Devices Implanted Type Area Sales Training Manager Device Identifier Shelf Expiration Date Model / Serial / Lot Port Implant W/8f Poly Cath - [id number] Implanted:Qty : 1 on 03/13/2023 by Krish Miller DO at [facility] Right: Chest CR BARD : [employer]IPHER[employer] [id number] 11/24/2023 [id number] / / [id number] documented as of this encounter Visit Diagnoses Diagnosis Palliative care encounter- Primary Encounter for palliative care Anxiety disorder due to medical condition Anxiety disorder in conditions classified elsewhere Cancer related pain Neoplasm related pain (acute) (chronic) Malignant neoplasm of head of pancreas (HCC) Malignant neoplasm of head of pancreas Acute CVA (cerebrovascular accident) (HCC) documented in this encounter Care Teams Salad Chef Relationship Specialty Start Date End Date Vanesa Solorzano, [address] [place] [address] PCP - General Family Medicine 09/21/18 documented as of this encounter
== END 2023-03-28 13:20 | disposition short-term general hospital (02) | DRG 314 ==
LOC: ED 16:04 → EDINP 21:04 → SUATTDRO 21:04 → 2S 21:53